=== PATIENT | male | born 1950 | race Caucasian/White ===

== ENCOUNTER → 2018-05-22 10:40 | Outpatient (CLI) | payer MEDICARE, SELFPAY ==
[2018-05-22 11:17] VITALS: PULSE 119; PULSE 121; PULSE 125; PULSE 126; PULSE 95; PULSE 99; O2SAT 91; O2SAT 92; O2SAT 93; O2SAT 94; O2SAT 95; O2SAT 96
--- NOTE | 2018-05-22 12:29 | PCM.PSN.6M ---
PSN 6 Minute Walk Test - 6 Minute Walk Test 6 Minute Walk Test: 6 Minute Walk Test PSN:6-Minute Walk Test Start: 05/22/18 11:17 Freq: Status: Active Protocol: [id number] Document 05/22/18 11:17 ALFREDO (Rec: 05/22/18 11:20 [email or web address] [id number]) 6 Minute Walk Test Date Performed 05/22/18 Time Performed 11:00 Height 5 ft 10 in Weight: 350 lb Weight in Pounds 350.[address]: Dajuan Victor Assistive device used: None Pre-test Oxygen Delivery Method Room Air Pulse Ox (%) 94 Pulse Rate (60-100 beats/min) 95 Dyspnea Camelia Scale (0-10) 0.5 Exertion Camelia Scale (6-20) 6 1st minute Oxygen Delivery Method Room Air Pulse Ox (%) 92 Pulse Rate (60-100 beats/min) 119 H 2nd minute Oxygen Delivery Method Room Air Pulse Ox (%) 91 Pulse Rate (60-100 beats/min) 121 H Number of Rests Taken 1 3rd minute Oxygen Delivery Method Room Air Pulse Ox (%) 91 Pulse Rate (60-100 beats/min) 125 H Number of Rests Taken 1 4th minute Oxygen Delivery Method Room Air Pulse Ox (%) 95 Pulse Rate (60-100 beats/min) 121 H 5th minute Oxygen Delivery Method Room Air Pulse Ox (%) 92 Pulse Rate (60-100 beats/min) 126 H Number of Rests Taken 1 6th minute Oxygen Delivery Method Room Air Pulse Ox (%) 93 Pulse Rate (60-100 beats/min) 121 H Dyspnea Camelia Scale (0-10) 3 Exertion Camelia Scale (6-20) 16 Post-test Oxygen Delivery Method Room Air Pulse Ox (%) 96 Pulse Rate (60-100 beats/min) 99 Full Laps Walked 11 Partial Lap, Number of Tiles Walked 0 Total Distance Walked (ft) 649 - Interpretation Interpretation: The patient ambulated 649 feet over the course of 6 minutes beginning on room air without assistive devices or breaks. Pretesting oxygen saturation was noted to be 94% on room air. With ambulation, the bhavesh oxygen saturation was 91%. The patient did develop tachycardia with exertion. Although there is no evidence of significant exertional oxygen desaturation, there was evidence of impaired walk distance. - Recommendations Recommendations: There is no indication for the use of supplemental oxygen at this time.
== END ==
PROVIDERS: Family Provider Preventive Medicine Occupational Medicine; PCP Preventive Medicine Occupational Medicine; Visit Provider Internal Medicine Critical Care Medicine
DX: J44.9 Chronic obstructive pulmonary disease, unspecified (principal); Z87.891 Personal history of nicotine dependence
CPT/HCPCS: 94618; G0297

== ENCOUNTER → 2018-05-29 09:57 | Outpatient (CLI) | payer MEDICARE, SELFPAY ==
--- NOTE | 2018-05-29 11:27 | PFTCOMP ---
COMPLETE PULMONARY FUNCTION TEST INTERPRETATION Brief HPI: Patient is a 68 year old male, currently under the care of Dr. Victor, who presents to [facility] for complete pulmonary function tests secondary to diagnosis of COPD. Respiratory therapist reports good effort and reproducible results. Interpretation: Forced expiration spirometry shows a severe large airways obstructive ventilatory defect with an FEV1 of 58% predicted. There is a significant bronchodilator response in FVC and FEV1 by ATS criteria. Spirograms are of good quality and plateau slowly, indicating slowly emptying areas of the lungs. The respiratory flow volume loop shows decreased expiratory flow rates at all lung volumes consistent with airway obstruction. Lung volumes by body plethysmography show an elevated total lung capacity at 8.1 L, 121% predicted. FRC and RV are elevated out of proportion. Lung volume measurements are consistent with hyperinflation and air-trapping. Diffusion capacity by carbon monoxide is decreased at 59% predicted. The airway resistance is elevated. Compared to previous pulmonary function tests from 03/05/2017, there has been no significant change. Impression: Partially reversible severe large airways obstructive ventilatory defect with symmetric reduction diffusing capacity, resulting in air trapping with hyperinflation and consistent with COPD/asthma overlap syndrome.
== END ==
PROVIDERS: Family Provider Preventive Medicine Occupational Medicine; PCP Preventive Medicine Occupational Medicine; Visit Provider Internal Medicine Critical Care Medicine
DX: J44.9 Chronic obstructive pulmonary disease, unspecified (principal)
CPT/HCPCS: 93005; 94060; 94726; 94729

== ENCOUNTER 2018-06-19 10:20 | Outpatient (RCR) | payer MEDICARE, SELFPAY | END 2018-06-23 23:59 | LOC: DC 10:20 | PROVIDERS: Family Provider Preventive Medicine Occupational Medicine; PCP Preventive Medicine Occupational Medicine; Visit Provider Internal Medicine Critical Care Medicine | DX: E11.9 Type 2 diabetes mellitus without complications (principal); E66.9 Obesity, unspecified; Z68.43 Body mass index [BMI] 50.0-59.9, adult; Z71.3 Dietary counseling and surveillance ==

== ENCOUNTER 2018-06-21 09:30 | Outpatient (RCR) | payer MEDICARE, SELFPAY ==
--- NOTE | 2018-05-28 10:38 | PCM.PR.HP ---
History of Present Illness Arrival date:: 05/28/18 Arrival time:: 10:38 Date of Referral:: 05/02/18 Date of Evaluation: 05/28/18 Referring Physician: Dr. Dajuan Victor Primary Diagnosis: COPD Stage III Severe Gold Classification mMRC Breathless Scale: When is the patient short of breath? Y/N Grade: Description of Breathlessness: 0 I only get breathless with strenuous exercise. 1 I get short of breath when hurrying on level ground or walking up a slight hill. 2 On level ground, I walk slower than people of the same age because of breathless, or have to stop for breath when walking at my own pace. 3 I stop for breath after walking 100 yards or after a few minutes on level ground. 4 I am too breathless to leave the house or I am breathless when dressing. Respiratory Problems: Yes: Able to Speak in Full Sentences, Ankle Swelling, Dyspnea with Activity No: Retain Secretions, Limited Range of Motion, Chest Pain, Dizziness, Dyspnea at Rest, Dyspnea Lying Down Flat, Cough with Secretions Home Medications: Home Medications albuterol sulfate 2.5 mg/3 mL (0.083 %) solution for nebulization 2.5 mg INHALATION Q6H PRN ml 05/02/18 albuterol sulfate HFA 90 mcg/actuation aerosol inhaler 2 puff INHALATION Q4H PRN 05/02/18 aspirin 81 mg tablet,delayed release 81 mg PO QDAY 05/02/18 budesonide-formoterol HFA 80 mcg-4.5 mcg/actuation aerosol inhaler 2 puff INHALATION ONCE g 05/02/18 citalopram 40 mg tablet 20 mg PO QDAY 05/02/18 furosemide 40 mg tablet 40 mg PO BID 05/02/18 insulin human U-100 NPH-regulr 70-30 mix 100 unit/mL subcutaneous susp 56 unit SC BID ml 05/02/18 lisinopril 5 mg tablet 5 mg PO QDAY 05/02/18 metformin 1,000 mg tablet 1,000 mg PO ONCE tab 05/02/18 metoprolol tartrate 25 mg tablet 25 mg PO ONCE tab 05/02/18 simvastatin 80 mg tablet 80 mg PO ONCE 05/02/18 tiotropium bromide 18 mcg capsule with inhalation device 1 cap INHALATION QDAY 05/02/18 - Secretions Cough:: Yes AM: Yes Hx of Sleep Apnea: Yes Do you snore loudly (louder than talking or can be heard through closed doors)?: Yes - MALI; 2-3 hours sleep at night off/on. Do you often feel tired/ fatigued/ sleepy during daytime?: Yes Has anyone observed you stop breathing during sleep?: No History of Hypertension (for STOP score): Yes STOP Results: Positive Medical Utilization Do you use a peak flow meter at home?: No Do you use a spacer device with your inhalers?: No Number of hospital visits in the last year?: 0 Number of emergency room visits in the last year?: 0 Do you see your physician on a regular schedule?: Yes How often?: 6 months PCP; follow-up Nov with [facility]. Advanced Directives - Advanced Directives Power of [place]: Yes Living Will: Yes Advance Directives Information Provided: No Advance Directives on File: No DNR Order?:: No - MOLST See MOLST form: No Past Medical History Medical History: Past Medical History (This Medical Record has been edited. Action required.) Diabetes (Chronic) E11.9 Former smoker (Resolved) Z87.891 COPD (chronic obstructive pulmonary disease) (Chronic) J44.9 Surgical History: Past Surgical History (This Medical Record has been edited. 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 Action required.) Father Heart disease Diabetes Brother Cancer Throat Grandmother Breast cancer - Current/ Previous Services Pulmonary Rehab:: No - Comments Comments: Did do cardiac rehab in 2009 after CABG in [place]. Social History - Smoking History Smoking Status: Former smoker Years Smokin Packs Smoked per Day: 2 Hx Smoking Cessation Date: 2008 Hx Tobacco Use: No Hx Smoking Exposure: No - Alcohol Use Alcohol Usage: Yes - beer or whiskey on occasion - Substance Abuse Hx Substance Use: No - Occupation Occupation (List type of work in comments):: Retired - Hobbies, Recreation, Social Activities Hobbies: Watch TV Recreational Activities: I am able to engage in a few activities Functioning ADL/IADL - Current Ability Current Ability: Independent Self-Care (e.g.,grooming, dressing, & bathing), Independent Ambulation, Independent Transfer, Independent Household tasks (e.g., light meal prep, laundry, shopping) - Pt Functioning Prior to Problem Prior Functioning: Self-Care (e.g.,grooming, dressing, & bathing): Independent, Ambulation: Independent, Transfer: Independent, Household tasks (e.g., light meal prep, laundry, shopping): Independent Social Environment - Status Marital Status: - Current Living Arrangements Living Environment:: Spouse - Children How many children do you have?: 0 - Safety Do you feel safe in your surroundings?: Yes - Assistance Do you need any assistance at home?: none Review of Systems Review of Systems: Right click = Denies ([place]). Left click = Reports ([place]) Respiratory: Reports: Cough - dry cough frequently throughout the day., SOB upon Exertion, Wheezing, Appetite, Normal, Dizziness/Lightheadedness - if stands to quickly, but once he stands for a minute if goes away., Fatigue, Sleep, Normal - 2-3 hours up and down throughout the night. Never in his lifetime has he had more than 6-7 hours of solid sleep.. Denies: SOB at Rest, Sexual changes Is Patient Pain Free?: Yes Pain Location: none Pain Level: 0/10 Risk Factor Assessment - Chief Complaint Chief Complaint: Patient is a new patient of Dr. Dajuan Victor who transfered from Dr. Arden Arredondo at [place]. The patient presents to pulmonary rehab today for his Stage III Severe COPD. A routine PFT is scheduled prior to starting NV since his last PFT was done in 2017. - Vital Signs Temperature: 98.7 F Pulse Rate: 79 Pulse Rhythm: Regular Respiratory Rate: 18 - following walking from lobby. Pulse Ox: 92 Blood Pressure: 148/90 Nailbeds:: pink - Obesity Height: 5 ft 11 in Weight:: 365 lb Weight in Pounds: 365.0 lbs Body Mass Index (BMI): 50.9 Nutritional Referral for Obesity: Yes - Patient could benefit from a Strucutured weight loss or Bariatric Consult - Physical Activity Physical Inactivity: None - Risk Stratification Risk Guidelines: Lowest Risk: Risk Factor for Smoking, Risk Factor for Dyslipidemia, Risk Factor for Diabetes - a1c 7.5 04/10/2018, Risk Factor for Depression, Highest Risk: Risk Factor for Obesity - BMI 50.9 High Risk, Risk Factor for Hypertension, Risk Factor for Sedentary Lifestyle - For Smoking Smoking Risk Guidelines: Smoking Low Risk: None or quit greater than 6 months ago. Smoking Moderate Risk: Smoker or quit 6 months or less ago. Smoking High Risk: Smoker - For Dyslipidemia Dyslipidemia Risk Guidelines: Low Risk: Moderate Risk: High Risk: 15-25% fat 25.1-29% fat >/= 30% fat. <7% sat fat 7-9% sat fat >9% sat fat. <150 mg chol 150-299 mg chol >/= 300 mg chol. LDL <100 LDL 100-129 LDL >/= 130. Chol/HDL ratio <5.0 Chol/HDL ratio 5.0-6.0 Chol/HDL ratio >6.0. Triglycerides <100 Triglycerides 100-149 Triglycerides >/= 150 - For Diabetes Mellitus Diabetes Risk Guidelines: Diabetes Low Risk: HgA1c <6.5% and/or FBG <120. Diabetes Moderate Risk: HgA1c 6.6-7.9% and/or FBG 120-180. Diabetes High Risk: HgA1c >/= 8% and/or FBG >180 - For Obesity/Overweight Obesity/Overweight Risk Guidelines: Obesity Low Risk: BMI <25.0. Obesity Moderate Risk: BMI 25-29.9. Obesity High Risk: BMI >/= 30.0 - For Hypertension Hypertension Risk Guidelines: Hypertension Low Risk: Systolic <120 and Diastolic <80. Hypertension Moderate Risk: Systolic 120-139 and Diastolic 80-89. Hypertension High Risk: Systolic >/= 140 and Diastolic >/= 90 - For Sedentary Lifestyle Sedentary Lifestyle Risk Guidelines: Sedentary Lifestyle Low Risk: >/= 1,500 kcal/week. Sedentary Lifestyle Moderate Risk: 700-1,499 kcal/week. Sedentary Lifestyle High Risk: < 700 kcal/week - For Depression Depression Risk Guidelines: Depression Low Risk: Not clinically depressed. Depression Moderate Risk: Mildly depressed. Depression High Risk: Clinically depressed Motivation - Motivation to Participate On a scale of 1 to 10, how prepared are you to commit to attending program?: 10 What do you see as barriers to successfully being able to complete the program?: none What do you see as the benefits of succesfully completing the program? In other words, what do you hope to get out of participating in the program?: healthier, more active Are there issues you are dealing with that will interfere with completing the program?: none Do you have a spouse or signficant other, family or friends who will help support you to complete the program?: yes Diagnostic Data Review - 6 Minute Walk Test 6 Minute Walk Test: Done 05/22/2018 649 feet on room air wihtout assistive devices or breaks. Patient desaturation to 91%.
--- NOTE | 2018-05-28 10:42 | PR.ITP_ITS ---
General Information - General Information Admitting Diagnosis: COPD Stage III Severe Gold Classification:: GOLD 3: Severe Oxygen: at night but doesnt use it faithfully as ordered. - Education/Goals Patient Goals: Breathe better: Initial Assessment, Increase endurance/stamina: Initial Assessment, Return to recreation/hobby: Initial Assessment, Improve diet and nutrition: Initial Assessment, Symptom management: Initial Assessment, Take medications correctly: Initial Assessment, Improve weight: Initial Assessment Exercise - Initial Assessment - Visit Date of Eval: 05/28/18 - Problem/Goals Problems: Knowledge deficit exercise guidelines, Knowledge deficit exercise safety - Exercise Prescription Mode:: Treadmill, Rower, Airdyne, NuStep Frequency (x/week): 3 Duration:: 30 MET LEVEL:: 2.5 HR (bpm):: 110 - 108-110 thrr Exercise Progression: As tolerated per patient under [place] Protocol. - Plan Plan and Plan to Review:: Benefits of exercise, Core components of exercise, How to measure dyspnea level, How to monitor dyspnea level, Exercise intensity, Exercise safety guideline, Home exercise guidelines, Camelia: 3-4/11-13 Disease Management - Initial - Problems/Goals-Hypoxemia Hypoxemia Problems:: Hypoxemia - Problems/Goals-Medications Medication Goals: Adherence to prescribed medications, Correct technique/timing & care of MDI, DPI, nebulizer, and spacer. - Problems/Goals-Bronchial Hygiene Bronchial Hygiene Goals:: Pt demonstrates effective cough, effective secretion clearance., Pt describes signs and symptoms of infection. - Initial Assessment SpO2:: 91 FiO2:: 21 Does pt report taking home meds as prescribed?: No Medications: Yes MDI - routinely, Yes DPI - routinely, Yes NEB - only as needed , No Spacer - has one but does not use it Patient Reports:: Non-productive cough - Plans Hypoxemia Plan:: Monitor SpO2 rest & with exercise, Train appropriate O2 use at rest, Train appropriate O2 use with exercise, Train O2 safety & systems Reviewed prescribed medications:: Purpose, Schedule, Side effects, Importance of compliance Instruct correct technique/timing & care:: MDI, DPI, Nebulizer, Return demo use of inhaler Bronchial Hygiene Plan: Controlled cough, Vibratory PEP device, Hydration, Hand hygiene, Signs/symptoms to report: Psychosocial - Initial Assess - Problems/Goals Problems: Impaired Q.O.L. Psychosocial Goals: Improved Q.O.L. - Psychosocial Test Depression:: Impaired QOL Referred to MD for counseling:: No - Plan Reviewed screening results: Yes Instructions given regarding:: Benefits of exercise, Relaxation techniques, Training in coping strategies Tobacco - Initial Assessment - Program Goals Tobacco Program Goals: Complete smoking cessation. Attend education classes. Improve Knowledge Test score - Stage of Change Stages of Change:: Action - Learning Barriers Learning Barriers: Vision - needs reading glasses at itmes, Ready to Learn - Family Support Do you have family support?: Yes - Tobacco Use Tobacco Use: Non-smoker How long ago did you quit using tobacco products?: Greater than or equal to 6 months ago Do you use smokeless tobacco?: No - Intervention Smoking Cessation Referral:: No Individual Education/Counseling:: No Education Schedule Given:: Yes - Education Gave Education Materials For:: Pulmonary Disease, Risk Factors, Breathing Techniques, Medical Compliance, Pulmonary A&P, Exacerbation Signs & Symptoms, Stress & Relaxation Nutrition/Wt Mgmt - Initial - Problems/Goals Problems: Overweight - Weight Management Knowledge Deficit Management of:: Overweight Admit Height:: 5 ft 11 in Admit Weight:: 365 lb Admit BMI:: 50.9 - Diabetes Diabetes:: Yes Hgb A1C: 7.5 Insulin: Yes Do you monitor your blood sugar at home?: Yes - Intervention Referral to dietitian:: Yes Referral to Diabetic Clinic:: No - Sees Liset Quach in [place] for DM Type II Will attend diet classes:: Yes - Plan Nutrition Plan: Yes Review BMI or WC & identify target wt & strategies for wt control, Yes Nutrition education class: Patient Health Questionnaire Initial Assessment 1. Little interest or pleasure in doing things: Several days 2. Feeling down, depressed, or hopeless: Several days 3. Trouble falling or staying asleep, or sleeping too much: Not at all 4. Feeling tired or having little energy: Not at all 5. Poor appetite or overeating: More than half the days 6. Feeling bad about yourself -- or that you are a failure or have let yourself or your family down: More than half the days 7. Trouble concentrating on things, such as reading the newspaper or watching television: Not at all 8. Moving or speaking so slowly that other people could have noticed. Or the opposite - being so fidgety or restless that you have been moving around a lot more than usual: Not at all 9. Thoughts that you would be better off , or of hurting yourself in some way: Not at all How difficult have these problems made it for you to do your work, take care of things at home, or get along with other people?: Not difficult at all Total Score: 6 COPD Knowledge Test Initial COPD is a lung disease that:: Makes it hard to breathe & gets worse over time In the [place] the term COPD describes 2 main lung conditions:: Emphysema & pulmonary hypertension The most common lung irritant that causes COPD is:: Cigarette smoke Common signs and symptoms of COPD include:: An ongoing cough/cough that produces a large amount of mucus, & SOB If you have COPD, what steps can you take?: All of the above Swelling of the ankles is common in COPD:: True Fatigue [tiredness] is common in COPD:: True Wheezing is common in COPD:: True Crushing chest pain is common in COPD:: False Rapid weight loss is common in COPD:: False Breathlessness is a normal response to exercise: False Exercise should be avoided if it makes you short of breath: False All bronchodilators act within 10 minutes: False A spacer device increases the medication to the lungs: True Annual flu vaccine is recommended for pts w/lung disease: True COPD Knowledge Test Total Score:: 12 COPD Assessment Test [CAT] - Questions Never cough = 0, Cough all the time = 5: 2 No phlegm = 0, Chest full of phlegm = 5: 0 No chest tightness = 0, Chest very tight = 5: 1 No breathless w/exertion = 0, Very breathless w/exertion = 5: 5 No limitations w/activity = 0, Very limited w/activity = 5: 4 Confident leaving home = 0, Not at all confident = 5: 0 Sleep soundly = 0, Don't sleep soundly = 5: 1 Lots of energy = 0, No energy at all = 5: 3 Total CAT score:: 16 Self-Efficacy Initial Assessment We would like to know how confident you are in doing certain activities. Please select your confidence level for:: Select your confidence level for the following using the scale 1-10 where 1 is not at all confident and 10 is totally confident. Your score is the average of all 6 responses. Fatigue: How confident are you that you can keep the fatigue caused by your disease from interfering with the things you want to do? Select Number: 10 Physical Discomfort or Pain: How confident are you that you can keep the physical discomfort or pain of your disease from interfering with the things you want to do? Select Number: 10 Emotional Distress: How confident are you that you can keep the emotional distress caused by your disease from interfering with the things you want to do? Select Number: 10 Other Symptoms or Health Problems: How confident are you that you can keep other symptoms or health problems from interfering with the things you want to do? Select Number: 8 Different Tasks and Activities: How confident are you that you can do the different tasks and activities needed to manage your health condition so as to reduce your need to see a doctor? Select Number: 9 Medication: How confident are you that you can do things other than just taking medication to reduce how much your illness affects your everyday life? Select Number: 10 Total Score:: 9 Nutrition Survey - Nutrition Survey Instructions Scoring Instructions: Scoring is as follows: Yes = 1 points. No = 0 point. Patient score that is >/=12 is considered to be at potential nutritional risk and could benefit from a referral to a registered dietitian. - Nutrition Survey Initial Have you lost >10 lbs over the past 2 months without trying?: No Are you following a special diet at home for diabetes, low fat, or low salt?: No Are you interested in meeting with a dietitian for help understanding your diet? : No Do you eat less than 3 meals a day?: No Do you eat fatty meats (finch, sausage, ribs, etc), fried foods, desserts, large amounts of salad dressings, margarine, butter, or cheese most days?: Yes Do you have food allergies? [Enter types in comment field]: No Do you eat in restaurants more than 3 times a week?: No Do you season food with salt, seasoning salt, or garlic salt?: No Do you used canned, boxed, frozen meals, or soups, seasoning packets?: Yes Total Score:: 2
--- NOTE | 2018-05-28 10:42 | PR.HP_ITS ---
History of Present Illness Arrival date:: 05/28/18 Arrival time:: 10:38 Date of Referral:: 05/02/18 Date of Evaluation: 05/28/18 Referring Physician: Dr. Dajuan Victor Primary Diagnosis: COPD Stage III Severe Gold Classification mMRC Breathless Scale: When is the patient short of breath? Y/N Grade: Description of Breathlessness: 0 I only get breathless with strenuous exercise. 1 I get short of breath when hurrying on level ground or walking up a slight hill. 2 On level ground, I walk slower than people of the same age because of breathless, or have to stop for breath when walking at my own pace. 3 I stop for breath after walking 100 yards or after a few minutes on level ground. 4 I am too breathless to leave the house or I am breathless when dressing. Respiratory Problems: Yes: Able to Speak in Full Sentences, Ankle Swelling, Dyspnea with Activity No: Retain Secretions, Limited Range of Motion, Chest Pain, Dizziness, Dyspnea at Rest, Dyspnea Lying Down Flat, Cough with Secretions Home Medications: Home Medications albuterol sulfate 2.5 mg/3 mL (0.083 %) solution for nebulization 2.5 mg INHALATION Q6H PRN ml 05/02/18 albuterol sulfate HFA 90 mcg/actuation aerosol inhaler 2 puff INHALATION Q4H PRN 05/02/18 aspirin 81 mg tablet,delayed release 81 mg PO QDAY 05/02/18 budesonide-formoterol HFA 80 mcg-4.5 mcg/actuation aerosol inhaler 2 puff INHALATION ONCE g 05/02/18 citalopram 40 mg tablet 20 mg PO QDAY 05/02/18 furosemide 40 mg tablet 40 mg PO BID 05/02/18 insulin human U-100 NPH-regulr 70-30 mix 100 unit/mL subcutaneous susp 56 unit SC BID ml 05/02/18 lisinopril 5 mg tablet 5 mg PO QDAY 05/02/18 metformin 1,000 mg tablet 1,000 mg PO ONCE tab 05/02/18 metoprolol tartrate 25 mg tablet 25 mg PO ONCE tab 05/02/18 simvastatin 80 mg tablet 80 mg PO ONCE 05/02/18 tiotropium bromide 18 mcg capsule with inhalation device 1 cap INHALATION QDAY 05/02/18 - Secretions Cough:: Yes AM: Yes Hx of Sleep Apnea: Yes Do you snore loudly (louder than talking or can be heard through closed doors)? : Yes - MALI; 2-3 hours sleep at night off/on. Do you often feel tired/ fatigued/ sleepy during daytime?: Yes Has anyone observed you stop breathing during sleep?: No History of Hypertension (for STOP score): Yes STOP Results: Positive Medical Utilization Do you use a peak flow meter at home?: No Do you use a spacer device with your inhalers?: No Number of hospital visits in the last year?: 0 Number of emergency room visits in the last year?: 0 Do you see your physician on a regular schedule?: Yes How often?: 6 months PCP; follow-up Nov with [facility]. Advanced Directives - Advanced Directives Power of Mannequin Mold Maker: Yes Living Will: Yes Advance Directives Information Provided: No Advance Directives on File: No DNR Order?:: No - MOLST See MOLST form: No Past Medical History Medical History: Past Medical History (This Medical Record has been edited. Action required.) Diabetes (Chronic) E11.9 Former smoker (Resolved) Z87.891 COPD (chronic obstructive pulmonary disease) (Chronic) J44.9 Surgical History: Past Surgical History (This Medical Record has been edited. 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 Action required.) Father Heart disease Diabetes Brother Cancer Throat Grandmother Breast cancer - Current/ Previous Services Pulmonary Rehab:: No - Comments Comments: Did do cardiac rehab in 2009 after CABG in [place]. Social History - Smoking History Smoking Status: Former smoker Years Smokin Packs Smoked per Day: 2 Hx Smoking Cessation Date: 2008 Hx Tobacco Use: No Hx Smoking Exposure: No - Alcohol Use Alcohol Usage: Yes - beer or whiskey on occasion - Substance Abuse Hx Substance Use: No - Occupation Occupation (List type of work in comments):: Retired - Hobbies, Recreation, Social Activities Hobbies: Watch TV Recreational Activities: I am able to engage in a few activities Functioning ADL/IADL - Current Ability Current Ability: Independent Self-Care (e.g.,grooming, dressing, & bathing), Independent Ambulation, Independent Transfer, Independent Household tasks (e.g. , light meal prep, laundry, shopping) - Pt Functioning Prior to Problem Prior Functioning: Self-Care (e.g.,grooming, dressing, & bathing): Independent, Ambulation: Independent, Transfer: Independent, Household tasks (e.g., light meal prep, laundry, shopping): Independent Social Environment - Status Marital Status: - Current Living Arrangements Living Environment:: Spouse - Children How many children do you have?: 0 - Safety Do you feel safe in your surroundings?: Yes - Assistance Do you need any assistance at home?: none Review of Systems Review of Systems: Right click = Denies ([place]ash). Left click = Reports ([place]) Respiratory: Reports: Cough - dry cough frequently throughout the day., SOB upon Exertion, Wheezing, Appetite, Normal, Dizziness/Lightheadedness - if stands to quickly, but once he stands for a minute if goes away., Fatigue, Sleep , Normal - 2-3 hours up and down throughout the night. Never in his lifetime has he had more than 6-7 hours of solid sleep.. Denies: SOB at Rest, Sexual changes Is Patient Pain Free?: Yes Pain Location: none Pain Level: 0/10 Risk Factor Assessment - Chief Complaint Chief Complaint: Patient is a new patient of Dr. Dajuan Victor who transfered from Dr. Arden Arredondo at [place]. The patient presents to pulmonary rehab today for his Stage III Severe COPD. A routine PFT is scheduled prior to starting [place] since his last PFT was done in 2017. - Vital Signs Temperature: 98.7 F Pulse Rate: 79 Pulse Rhythm: Regular Respiratory Rate: 18 - following walking from lobby. Pulse Ox: 92 Blood Pressure: 148/90 Nailbeds:: pink - Obesity Height: 5 ft 11 in Weight:: 365 lb Weight in Pounds: 365.0 lbs Body Mass Index (BMI): 50.9 Nutritional Referral for Obesity: Yes - Patient could benefit from a Strucutured weight loss or Bariatric Consult - Physical Activity Physical Inactivity: None - Risk Stratification Risk Guidelines: Lowest Risk: Risk Factor for Smoking, Risk Factor for Dyslipidemia, Risk Factor for Diabetes - a1c 7.5 04/10/2018, Risk Factor for Depression, Highest Risk: Risk Factor for Obesity - BMI 50.9 High Risk, Risk Factor for Hypertension, Risk Factor for Sedentary Lifestyle - For Smoking Smoking Risk Guidelines: Smoking Low Risk: None or quit greater than 6 months ago. Smoking Moderate Risk: Smoker or quit 6 months or less ago. Smoking High Risk: Smoker - For Dyslipidemia Dyslipidemia Risk Guidelines: Low Risk: Moderate Risk: High Risk: 15-25% fat 25.1-29% fat >/= 30% fat. <7% sat fat 7-9% sat fat >9% sat fat. <150 mg chol 150-299 mg chol >/= 300 mg chol. LDL <100 LDL 100-129 LDL >/= 130. Chol/HDL ratio <5.0 Chol/HDL ratio 5.0-6.0 Chol/HDL ratio >6.0. Triglycerides <100 Triglycerides 100-149 Triglycerides >/= 150 - For Diabetes Mellitus Diabetes Risk Guidelines: Diabetes Low Risk: HgA1c <6.5% and/or FBG <120. Diabetes Moderate Risk: HgA1c 6.6-7.9% and/or FBG 120-180. Diabetes High Risk: HgA1c >/= 8% and/or FBG >180 - For Obesity/Overweight Obesity/Overweight Risk Guidelines: Obesity Low Risk: BMI <25.0. Obesity Moderate Risk: BMI 25-29.9. Obesity High Risk: BMI >/= 30.0 - For Hypertension Hypertension Risk Guidelines: Hypertension Low Risk: Systolic <120 and Diastolic <80. Hypertension Moderate Risk: Systolic 120-139 and Diastolic 80-89. Hypertension High Risk: Systolic >/= 140 and Diastolic >/= 90 - For Sedentary Lifestyle Sedentary Lifestyle Risk Guidelines: Sedentary Lifestyle Low Risk: >/= 1 ,500 kcal/week. Sedentary Lifestyle Moderate Risk: 700-1,499 kcal/week. Sedentary Lifestyle High Risk: < 700 kcal/week - For Depression Depression Risk Guidelines: Depression Low Risk: Not clinically depressed. Depression Moderate Risk: Mildly depressed. Depression High Risk: Clinically depressed Motivation - Motivation to Participate On a scale of 1 to 10, how prepared are you to commit to attending program?: 10 What do you see as barriers to successfully being able to complete the program? : none What do you see as the benefits of succesfully completing the program? In other words, what do you hope to get out of participating in the program?: healthier, more active Are there issues you are dealing with that will interfere with completing the program?: none Do you have a spouse or signficant other, family or friends who will help support you to complete the program?: yes Diagnostic Data Review - 6 Minute Walk Test 6 Minute Walk Test: Done 05/22/2018 649 feet on room air wihtout assistive devices or breaks. Patient desaturation to 91%.
[2018-05-28 10:58] VITALS: BP 148/90; PULSE 79; RESP 18; TEMP 37.1; O2SAT 92; BMI 50.9
[2018-05-28 11:47] VITALS: O2SAT 91; BMI 50.9
--- NOTE | 2018-05-28 11:48 | PR.DATECOV_ITS ---
Dates of Coverage Times for Dates Of Coverage; All dates of coverage are for physician supervision /medical device assembler for during the times of 08:00 AM through 4:30 PM. Effective May 25, 2013 our hours will be changing to 8:00 to 4:30 on Sunday, Sunday and Sunday. First Date of the Month: 06/03/18 Last Date of the Month: 06/23/18
== END 2018-06-23 23:59 ==
LOC: PR 09:30
PROVIDERS: Family Provider Preventive Medicine Occupational Medicine; PCP Preventive Medicine Occupational Medicine; Visit Provider Internal Medicine Critical Care Medicine
DX: J44.9 Chronic obstructive pulmonary disease, unspecified (principal)
CPT/HCPCS: 97150; G0424

== ENCOUNTER 2018-07-24 09:30 | Outpatient (RCR) | payer MEDICARE, SELFPAY ==
[2018-06-24 00:12] VITALS: BP 148/90; PULSE 79; RESP 18; TEMP 37.1; O2SAT 92
--- NOTE | 2018-07-01 07:30 | PCM.PR.DAT ---
Dates of Coverage Times for Dates Of Coverage; All dates of coverage are for physician supervision/medical office representative for during the times of 08:00 AM through 4:30 PM. Effective May 25, 2013 our hours will be changing to 8:00 to 4:30 on Sunday, Sunday and Sunday. First Date of the Month: 06/28/18 Last Date of the Month: 07/29/18
--- NOTE | 2018-07-01 07:30 | PCM.PR.TP ---
Exercise - 30-Day Assessment - Exercise Prescription Mode:: Treadmill, Airdyne, NuStep, Arm Ergometer Frequency (x/week): 3 Duration:: 35 Aerobic Exercise [30-60 min 3-7x/week]:: Progressing Target heart rate: 116-124 Camelia MET Level:: 2.5 - Home Exercise Home Exercise:: No Disease Management - 30-Day - Hypoxemia Reassessment: Demonstrates knowledge of O2 Rx with exercise - Medications Medication list reviewed:: Yes Taking medications 100% of the time:: Met Medication reassessment: Yes Pt demonstrates correct technique timing for MDI, Yes Pt demonstrates correct technique timing for DPI, Yes Pt demonstrates correct technique timing for NEB - Bronchial Hygiene Bronchial Hygiene Plan: Yes Pt demonstrates correctly for effective cough, Yes Pt demo correct for verbalize when to call MD Psychosocial - 30-Day - Assessment Reassessment: Management of stress & depression Tobacco - 30-Day Assessment - Program Goals Tobacco Program Goals: Complete smoking cessation. Attend education classes. Improve Knowledge Test score - Stage of Change Stages of Change:: Action - Learning Barriers Learning Barriers: Participates in education - Family Support Do you have family support?: Yes - Tobacco Use Tobacco Use: Non-smoker Do you use smokeless tobacco?: No - Intervention Smoking Cessation Referral:: No Individual Education/Counseling:: No Education Schedule Given:: Yes - Education Gave Education Materials For:: Pulmonary Disease, Risk Factors, Breathing Techniques, Medical Compliance, Pulmonary A&P, Exacerbation Signs & Symptoms, Stress & Relaxation Nutrition/Wt Mgmt - 30-Day - Weight Management Weight Assessment:: Wt stable Weight:: 368 lb Weight Goals Progress:: Referral to structured weight management program - Recommend referral to [facility] program. Patient Health Questionnaire 30-Day Re-eval Assessment 1. Little interest or pleasure in doing things: Several days 2. Feeling down, depressed, or hopeless: Several days 3. Trouble falling or staying asleep, or sleeping too much: Not at all 4. Feeling tired or having little energy: Not at all 5. Poor appetite or overeating: Several days 6. Feeling bad about yourself -- or that you are a failure or have let yourself or your family down: Several days 7. Trouble concentrating on things, such as reading the newspaper or watching television: Not at all 8. Moving or speaking so slowly that other people could have noticed. Or the opposite - being so fidgety or restless that you have been moving around a lot more than usual: Not at all 9. Thoughts that you would be better off , or of hurting yourself in some way: Not at all How difficult have these problems made it for you to do your work, take care of things at home, or get along with other people?: Somewhat difficult Total Score: 4 Self-Efficacy 30-Day Re-eval Assessment We would like to know how confident you are in doing certain activities. Please select your confidence level for:: Select your confidence level for the following using the scale 1-10 where 1 is not at all confident and 10 is totally confident. Your score is the average of all 6 responses. Fatigue: How confident are you that you can keep the fatigue caused by your disease from interfering with the things you want to do? Select Number: 10 Physical Discomfort or Pain: How confident are you that you can keep the physical discomfort or pain of your disease from interfering with the things you want to do? Select Number: 10 Emotional Distress: How confident are you that you can keep the emotional distress caused by your disease from interfering with the things you want to do? Select Number: 10 Other Symptoms or Health Problems: How confident are you that you can keep other symptoms or health problems from interfering with the things you want to do? Select Number: 9 Different Tasks and Activities: How confident are you that you can do the different tasks and activities needed to manage your health condition so as to reduce your need to see a doctor? Select Number: 10 Medication: How confident are you that you can do things other than just taking medication to reduce how much your illness affects your everyday life? Select Number: 10 Total Score:: 9
--- NOTE | 2018-07-19 11:51 | PR.DATECOV_ITS ---
Dates of Coverage Times for Dates Of Coverage; All dates of coverage are for physician supervision/medical care manager for during the times of 08:00 AM through 4:30 PM. Effective May 25, 2013 our hours will be changing to 8:00 to 4:30 on Sunday, Sunday and Sunday. First Date of the Month: 07/25/18 Last Date of the Month: 08/23/18
== END 2018-07-24 23:59 ==
LOC: PR 09:30
PROVIDERS: Family Provider Preventive Medicine Occupational Medicine; PCP Preventive Medicine Occupational Medicine; Referring Provider Internal Medicine Critical Care Medicine; Visit Provider Internal Medicine Critical Care Medicine
DX: J44.9 Chronic obstructive pulmonary disease, unspecified (principal)
CPT/HCPCS: 94667; 97150; G0424

== ENCOUNTER 2018-08-23 09:30 | Outpatient (RCR) | payer MEDICARE, SELFPAY ==
[2018-07-25 00:23] VITALS: BP 148/90; PULSE 79; RESP 18; TEMP 37.1; O2SAT 92
--- NOTE | 2018-07-26 08:13 | PCM.PR.TP ---
Exercise - 60-Day Assessment - Current Level Mode:: Treadmill, Rower, Airdyne, NuStep Frequency (x/week): 3 Duration:: 35 Aerobic Exercise [30-60 min 3-7x/week]:: Progressing Target heart rate: 116-124 Camelia-13 MET Level:: 2.5 - Home Exercise Home Exercise:: No Disease Management - 60-Day - Hypoxemia Reassessment: Demonstrates knowledge of O2 Rx with exercise - Medications Medication list reviewed:: Yes Medication reassessment: Yes Pt demonstrates correct technique timing for MDI, Yes Pt demonstrates correct technique timing for DPI, Yes Pt demonstrates correct technique timing for NEB, Yes Pt demonstrates correct technique timing for spacer - Returned demonstration use of spacer - Bronchial Hygiene Bronchial Hygiene Plan: Yes Pt demonstrates correctly for effective cough, Yes Pt demo correct for device - returned proper use of PEP therapy device, Yes Pt demo correct for improved hydration, Yes Pt demo correct for hand hygiene - properly uses hand hygeine, Yes Pt demo correct for verbalize when to call MD Psychosocial - 60-Day - Assessment Depression reassess: Management of stress: Progressing, Management of depression: Progressing, Practicing interventions: Progressing Tobacco - 60-Day Assessment - Program Goals Tobacco Program Goals: Complete smoking cessation. Attend education classes. Improve Knowledge Test score - Stage of Change Stages of Change:: Action - Learning Barriers Learning Barriers: Participates in education - Family Support Do you have family support?: Yes - Tobacco Use Tobacco Use: Non-smoker Do you use smokeless tobacco?: No - Intervention Smoking Cessation Referral:: No Education Schedule Given:: Yes - Education Gave Education Materials For:: Pulmonary Disease, Risk Factors, Breathing Techniques, Medical Compliance, Pulmonary A&P, Exacerbation Signs & Symptoms, Stress & Relaxation Nutrition/Wt Mgmt - 60-Day - Weight Management Weight:: 367 lb 8 oz Weight Goals Progress:: Referral to structured weight management program - Patient could benefit from a Structured Weight loss program. Patient Health Questionnaire 60-Day Re-eval Assessment 1. Little interest or pleasure in doing things: Several days 2. Feeling down, depressed, or hopeless: Several days 3. Trouble falling or staying asleep, or sleeping too much: Not at all 4. Feeling tired or having little energy: Not at all 5. Poor appetite or overeating: Not at all 6. Feeling bad about yourself -- or that you are a failure or have let yourself or your family down: Not at all 7. Trouble concentrating on things, such as reading the newspaper or watching television: Not at all 8. Moving or speaking so slowly that other people could have noticed. Or the opposite - being so fidgety or restless that you have been moving around a lot more than usual: Not at all 9. Thoughts that you would be better off , or of hurting yourself in some way: Not at all How difficult have these problems made it for you to do your work, take care of things at home, or get along with other people?: Not difficult at all Total Score: 2 COPD Assessment Test [CAT] - Questions Never cough = 0, Cough all the time = 5: 1 No phlegm = 0, Chest full of phlegm = 5: 1 No chest tightness = 0, Chest very tight = 5: 5 No breathless w/exertion = 0, Very breathless w/exertion = 5: 4 No limitations w/activity = 0, Very limited w/activity = 5: 0 Confident leaving home = 0, Not at all confident = 5: 3 Sleep soundly = 0, Don't sleep soundly = 5: 1 Lots of energy = 0, No energy at all = 5: 2 Total CAT score:: 17 Self-Efficacy 60-Day Re-eval Assessment We would like to know how confident you are in doing certain activities. Please select your confidence level for:: Select your confidence level for the following using the scale 1-10 where 1 is not at all confident and 10 is totally confident. Your score is the average of all 6 responses. Fatigue: How confident are you that you can keep the fatigue caused by your disease from interfering with the things you want to do? Select Number: 10 Physical Discomfort or Pain: How confident are you that you can keep the physical discomfort or pain of your disease from interfering with the things you want to do? Select Number: 10 Emotional Distress: How confident are you that you can keep the emotional distress caused by your disease from interfering with the things you want to do? Select Number: 10 Other Symptoms or Health Problems: How confident are you that you can keep other symptoms or health problems from interfering with the things you want to do? Select Number: 10 Different Tasks and Activities: How confident are you that you can do the different tasks and activities needed to manage your health condition so as to reduce your need to see a doctor? Select Number: 10 Medication: How confident are you that you can do things other than just taking medication to reduce how much your illness affects your everyday life? Select Number: 10 Total Score:: 10
== END 2018-08-23 23:59 ==
LOC: PR 09:30
PROVIDERS: Family Provider Preventive Medicine Occupational Medicine; PCP Preventive Medicine Occupational Medicine; Referring Provider Internal Medicine Critical Care Medicine; Visit Provider Internal Medicine Critical Care Medicine
DX: J44.9 Chronic obstructive pulmonary disease, unspecified (principal)
CPT/HCPCS: 97150; G0424

== ENCOUNTER → 2019-03-06 | Outpatient (CLI) | payer MEDICARE, SELFPAY ==
[2019-02-05 10:07] VITALS: BMI 53.6
--- NOTE | 2019-03-06 19:13 | CT_ITS ---
STUDY: LOW DOSE CT LUNG CANCER SCREENING REASON FOR EXAM: Male, 68 years old. RADIATION DOSAGE (If Supplied By Facility): CTDIvol = ( 4.02 ) mGy, DLP = ( 158.53 ) mGycm TECHNIQUE: No contrast was administered. Low dose technique was utilized (average mAS-38 and kVp 120). 1.25 mm axial source images with a slice interval of 1.25-mm were reconstructed in lung windows. 2.5 mm axial source images with a slice interval of 2.5-mm were reconstructed in lung windows. 5.0 mm axial source images with a slice interval of 5.0-mm were reconstructed in soft tissue windows. Nodule measured using lung windows on PACS and/or independent workstation with automated measurement of minimum and maximum diameter. Nodule measurement reported as average diameter rounded to the nearest whole number. Growth is defined as an increase ins size of greater than 1.5 mm. COMPARISON: None. NODULES: In the central right middle lobe, there is a part solid nodule measuring 1.1 x 0.7 cm on axial image 138, contiguous with the major fissure. There is a 5 mm solid component along the posterior nodule. Linear fibrotic changes of the posterior right upper lobe. Emphysema: Mild Endobronchial lesion: None Aorta: Diffuse atherosclerosis. Coronary arteries: Sternal wires and mediastinal surgical clips compatible with prior CABG. Heart: Normal size Pulmonary artery: Unremarkable for unopacified technique. Mediastinal nodes: No hilar or mediastinal adenopathy. Other chest and abdominal findings: Gallstones are noted. CT/Low Dose CT Lung Screening IMPRESSION: Lung-RADS category 3- 1.1 x 0.7 cm part solid nodule (5 mm solid component) in the right middle lobe. Recommend follow-up low-dose CT in 6 months. IMPORTANT NOTES FOR USE: ACR Lung-RADS Version 1.0 Assessment Categories Release Date: January 19, 2014 Category: Coded 0-4 bases on nodule(s) with highest degree of suspicion. Negative screen is defined as categories 1 and 2; a positive screen is defined as categories 3 and 4. Category 3 and 4A nodules that are unchanged on interval CT should be coded as category 2, and individuals returned to screening in 12 months. Category 4X: Category 3 or 4 nodules with additional imaging findings that increase the suspicion of lung cancer, such as spiculation, GGN that doubles in size in 1 year, enlarged lymph notes, etc. Category Modifiers: S (significant finding unrelated to lung cancer) and C (prior history of treated lung cancer) may be added to the 0-4 Lung-RADS Electronically Signed: Todd Hirsch MD at 15:28 EDT , Service support ,
== END | disposition home or self-care (01) ==
LOC: CT 19:08
PROVIDERS: Family Provider Preventive Medicine Occupational Medicine; PCP Preventive Medicine Occupational Medicine; Referring Provider Nurse Practitioner Acute Care; Visit Provider Nurse Practitioner Acute Care
DX: Z87.891 Personal history of nicotine dependence (principal)
CPT/HCPCS: G0297

== ENCOUNTER → 2019-03-06 | Outpatient (CLI) | payer MEDICARE, SELFPAY ==
[2019-02-05 10:07] VITALS: BMI 53.6
== END | disposition home or self-care (01) ==
PROVIDERS: Family Provider Preventive Medicine Occupational Medicine; PCP Preventive Medicine Occupational Medicine; Visit Provider Nurse Practitioner Acute Care
DX: G47.33 Obstructive sleep apnea (adult) (pediatric) (principal); Z87.891 Personal history of nicotine dependence
CPT/HCPCS: 95811; G0297

== ENCOUNTER → 2019-05-01 | Outpatient (CLI) | payer MEDICARE, SELFPAY ==
[2019-02-05 10:07] VITALS: BMI 53.6
--- NOTE | 2019-05-01 11:46 | PFTCOMP ---
COMPLETE PULMONARY FUNCTION TEST INTERPRETATION Brief HPI: Patient is a 68 year old male, currently under the care of Dr. Victor, who presents to [facility] for complete pulmonary function tests secondary to diagnosis of COPD. Respiratory therapist reports good effort and reproducible results. Interpretation: Forced expiration spirometry shows a severe large airways obstructive ventilatory defect with an FEV1 of 51% predicted. There is a significant bronchodilator response FEV1 by strict ATS criteria. Spirograms are of good quality and plateau slowly, indicating slowly emptying areas of the lungs. The respiratory flow volume loop shows decreased expiratory flow rates at all lung volumes consistent with airway obstruction. Lung volumes by body plethysmography show an elevated total lung capacity at 8.01 L, 120% predicted. FRC and RV are elevated out of proportion. Lung volume measurements are consistent with hyperinflation and air-trapping. Diffusion capacity by carbon monoxide is reduced at 52% predicted. The airway resistance is elevated. Compared to previous pulmonary function tests from 05/29/2018, there has been no significant change. Impression: Partially reversible severe large airways obstructive ventilatory defect with symmetric reduction diffusion capacity, resulting in air trapping with hyperinflation, and a pattern consistent with COPD/asthma overlap syndrome.
== END | disposition home or self-care (01) ==
LOC: PSN 09:06
PROVIDERS: Family Provider Preventive Medicine Occupational Medicine; PCP Preventive Medicine Occupational Medicine; Referring Provider Nurse Practitioner Acute Care; Visit Provider Nurse Practitioner Acute Care
DX: J44.9 Chronic obstructive pulmonary disease, unspecified (principal)
CPT/HCPCS: 94060; 94726; 94729

== ENCOUNTER → 2019-05-05 | Outpatient (CLI) | payer MEDICARE, SELFPAY ==
[2019-02-05 10:07] VITALS: BMI 53.6
[2019-05-05 09:29] VITALS: PULSE 112; PULSE 114; PULSE 120; PULSE 121; PULSE 129; PULSE 85; PULSE 90; PULSE 91; O2SAT 88; O2SAT 90; O2SAT 91; O2SAT 92; O2SAT 93; O2SAT 94; O2SAT 97
--- NOTE | 2019-05-05 09:32 | CPS ---
Patient states he wears 2 lpm at home occasionally. Started testing on room air SpO2 90-92%. By the second minute SpO2 88%. Patient walked the remainder of the test on 2 lpm taking a few breaks due to leg, knee and back pain.
--- NOTE | 2019-05-05 11:41 | PCM.PSN.6M ---
PSN 6 Minute Walk Test - 6 Minute Walk Test 6 Minute Walk Test: 6 Minute Walk Test PSN:6-Minute Walk Test Start: 05/05/19 09:26 Freq: Status: Active Protocol: [id number] Document 05/05/19 09:29 ALFREDO (Rec: 05/05/19 09:33 ALFREDO [id number]) 6 Minute Walk Test Date Performed 05/05/19 Time Performed 09:00 Height 5 ft 10.5 in Weight: 399 lb Weight in Pounds 399.[address]: Roxanne Ruelas Assistive device used: None Pre-test Oxygen Delivery Method Room Air Pulse Ox (%) 90 Pulse Rate (60-100 beats/min) 85 Dyspnea Camelia Scale (0-10) 0 Exertion Camelia Scale (6-20) 6 1st minute Oxygen Delivery Method Room Air Pulse Ox (%) 90 Pulse Rate (60-100 beats/min) 90 2nd minute Oxygen Delivery Method Room Air Pulse Ox (%) 88 Pulse Rate (60-100 beats/min) 114 H 3rd minute Oxygen Flow Rate (L/min) (L/min) 2 Oxygen Delivery Method Nasal Cannula Pulse Ox (%) 93 Pulse Rate (60-100 beats/min) 120 H 4th minute Oxygen Flow Rate (L/min) (L/min) 2 Oxygen Delivery Method Nasal Cannula Pulse Ox (%) 94 Pulse Rate (60-100 beats/min) 121 H Number of Rests Taken 1 5th minute Oxygen Flow Rate (L/min) (L/min) 2 Oxygen Delivery Method Nasal Cannula Pulse Ox (%) 92 Pulse Rate (60-100 beats/min) 112 H Number of Rests Taken 1 6th minute Oxygen Flow Rate (L/min) (L/min) 2 Oxygen Delivery Method Nasal Cannula Pulse Ox (%) 91 Pulse Rate (60-100 beats/min) 129 H Dyspnea Camelia Scale (0-10) 3 Exertion Camelia Scale (6-20) 15 Post-test Oxygen Flow Rate (L/min) (L/min) 2 Oxygen Delivery Method Nasal Cannula Pulse Ox (%) 97 Pulse Rate (60-100 beats/min) 91 Full Laps Walked 11 Partial Lap, Number of Tiles Walked 10 Total Distance Walked (ft) 659 05/05/19 09:32 Cardiopulmonary Services by Breanne Steele Patient states he wears 2 lpm at home occasionally. Started testing on room air SpO2 90-92%. By the second minute SpO2 88%. Patient walked the remainder of the test on 2 lpm taking a few breaks due to leg, knee and back pain. Initialized on 05/05/19 09:32 - END OF NOTE - Interpretation Interpretation: The patient ambulated 659 feet over the course of 6 minutes beginning on room air without assistive devices or breaks. Pretesting oxygen saturation was noted to be 90% on room air. With ambulation, the bhavesh oxygen saturation was 88%. 2 L/min of supplemental oxygen was applied and the patient was able to complete the remainder of the test while maintaining appropriate oxygen saturations. This testing indicates the presence of impaired walk distance along with a pulmonary limitation to exercise tolerance. - Recommendations Recommendations: 2 L/min of supplemental oxygen should be utilized with exertion.
== END | disposition home or self-care (01) ==
LOC: PSN 08:49
PROVIDERS: Family Provider Preventive Medicine Occupational Medicine; PCP Preventive Medicine Occupational Medicine; Referring Provider Nurse Practitioner Acute Care; Visit Provider Nurse Practitioner Acute Care
DX: J44.9 Chronic obstructive pulmonary disease, unspecified (principal)
CPT/HCPCS: 94618

== ENCOUNTER → 2019-09-05 12:58 | Outpatient (CLI) | payer MEDICARE, SELFPAY ==
[2019-05-15 09:17] VITALS: BMI 54.3
--- NOTE | 2019-09-05 13:02 | CT_ITS ---
STUDY: CT CHEST WITHOUT CONTRAST REASON FOR EXAM: Male, 69 years old. Follow-up of a nodule in the right middle lobe. RADIATION DOSAGE (If Supplied By Facility): CTDIvol = ( 24.62 ) mGy, DLP = ( 974.03 ) mGycm TECHNIQUE: Transaxial imaging was performed without the administration of intravenous contrast material. Multiplanar coronal and sagittal images were reformatted. Individualized dose optimization techniques were used for this CT. COMPARISON: Comparison is made with prior examination dated March 06, 2019. FINDINGS: Stable 9.3 mm x 10.8 mm solid/cystic nodule in the medial aspect of the right middle lobe. This is seen on axial image #174 and coronal image #90. Blebs are seen in the upper lobes in a background of mild degree of emphysematous changes. Mild degree of lateral pleural thickening posteriorly on the right side with mild degree of scarring at the right lung base. Sternal cerclage wires and vascular clips are present from a prior sternotomy and coronary artery bypass graft procedure (CABG). Coronary calcification. Normal mediastinum. Normal hilar regions. Normal unenhanced pulmonary arteries. Normal aorta arch and descending thoracic aorta. There are mild degenerative changes of the thoracic spine. There is no demonstrated abnormality of the visualized upper abdomen. CT/Chest without Contrast IMPRESSION: Stable 9.3 mm x 10.8 mm nodule in the medial aspect of the right middle lobe. A repeat 6 month follow-up is recommended. Electronically Signed: Lauro Aldana, at 15:12 EST , Service support ,
== END ==
PROVIDERS: Family Provider Preventive Medicine Occupational Medicine; PCP Preventive Medicine Occupational Medicine; Referring Provider Internal Medicine Critical Care Medicine; Visit Provider Internal Medicine Critical Care Medicine
DX: R91.1 Solitary pulmonary nodule (principal)
CPT/HCPCS: 71250

== ENCOUNTER → 2020-02-27 16:43 | Outpatient (CLI) | payer MEDICARE, SELFPAY ==
[2019-09-15 07:47] VITALS: BMI 54.4
--- NOTE | 2020-02-27 16:43 | CT_ITS ---
STUDY: CT CHEST WITHOUT CONTRAST REASON FOR EXAM: Male, 69 years old. Lung mass. RADIATION DOSAGE (If Supplied By Facility): CTDIvol = ( 28.71 ) mGy, DLP = ( 1161.81 ) mGycm TECHNIQUE: Transaxial imaging was performed without the administration of intravenous contrast material. Coronal and sagittal reformatted images were created. Individualized dose optimization techniques were used for this CT. COMPARISON: 09/05/19 FINDINGS: There are stable emphysematous changes noted in the lungs. There is a significant 11 mm nodule in the right middle lobe. There are no new nodules or masses. There is no pneumothorax. The patient is status post sternotomy and coronary artery bypass. The heart is normal in size. There is no thoracic lymphadenopathy. There is no evidence of thoracic aortic aneurysm. Images through the upper abdomen demonstrate gallstones. The liver is low density, consistent with fatty infiltration. There are no destructive osseous lesions. CT/Chest without Contrast IMPRESSION: Stable emphysema with a stable 11 mm nodule in the right middle lobe. No new nodules or masses. No pulmonary infiltrates or pleural effusions. Gallstones. Fatty liver. Electronically Signed: Sven Arnodl, at 17:11 EDT Tel , Service support ,
== END ==
PROVIDERS: PCP Preventive Medicine Occupational Medicine; Referring Provider Nurse Practitioner Acute Care; Visit Provider Nurse Practitioner Acute Care
DX: R91.8 Other nonspecific abnormal finding of lung field (principal)
CPT/HCPCS: 71250

== ENCOUNTER → 2020-09-08 07:20 | Outpatient (CLI) | payer MEDICARE, SELFPAY ==
[2020-03-02 08:02] VITALS: BMI 55.7
--- NOTE | 2020-09-08 07:21 | CT_ITS ---
STUDY: CT CHEST WITHOUT CONTRAST REASON FOR EXAM: Male, 70 years old. LUNG NODULE F/U RML RADIATION DOSAGE (If Supplied By Facility): CTDIvol = ( 28.71 ) mGy, DLP = ( 1154.63 ) mGycm TECHNIQUE: Transaxial imaging was performed without the administration of intravenous contrast material. Multiplanar coronal and sagittal images were reformatted. Individualized dose optimization techniques were used for this CT. COMPARISON: Comparison is made with prior study dated 02/27/2020. FINDINGS: Small benign appearing bilateral axillary nodes. Stable bullous changes in the lung apices. Stable pleural-parenchymal changes in the posterior lateral aspect of the right lower lobe. Mild degree of emphysematous changes. Stable 1.1 synovitis O 0.8 cm part solid nodule is seen in the medial/central aspect of the right middle lobe posteriorly. This is seen on axial image #71. This is unchanged from prior multiple examinations. There is no demonstrated pleural abnormality. Sternal cerclage wires and vascular clips are present from a prior sternotomy and coronary artery bypass graft procedure (CABG). There are calcifications of the coronary arteries. There are multiple small lymph nodes within the mediastinum, which are normal in size and morphology most compatible with reactive lymph hyperplasia. Normal hilar regions. Normal unenhanced pulmonary arteries. There is atherosclerotic calcification of the aortic arch with tortuosity and elongation of the aortic arch and descending thoracic aorta. Normal osseous structures. Multiple small gallstones. Fatty infiltration of the liver. CT/Chest without Contrast IMPRESSION: Stable examination. Electronically Signed: Lauro Aldana, at 8:49 EST , Service support ,
== END ==
PROVIDERS: PCP Preventive Medicine Occupational Medicine; Referring Provider Internal Medicine Critical Care Medicine; Visit Provider Internal Medicine Critical Care Medicine
DX: R91.1 Solitary pulmonary nodule (principal)
CPT/HCPCS: 71250

== ENCOUNTER → 2021-08-31 08:01 | Outpatient (CLI) | payer MEDICARE, SELFPAY ==
--- NOTE | 2021-08-31 08:03 | CT_ITS ---
STUDY: CT CHEST WITHOUT CONTRAST REASON FOR EXAM: Male, 71 years old. Follow known 1 cm mass RADIATION DOSAGE (If Supplied By Facility): CTDIvol = ( 28.71 ) mGy, DLP = ( 1090.04 ) mGycm TECHNIQUE: Transaxial imaging was performed without the administration of intravenous contrast material. Multiplanar coronal and sagittal images were reformatted. Individualized dose optimization techniques were used for this CT. COMPARISON: Comparison is made with prior study dated 09/08/2020. FINDINGS: Stable small benign-appearing bilateral axillary lymph nodes. Stable focal area of scarring and bronchiectasis in the posterior medial aspect of the right middle lobe. No definite nodule is seen at this time. Stable mild scarring at the lung bases. There is no demonstrated pleural abnormality. Sternal cerclage wires and vascular clips are present from a prior sternotomy and coronary artery bypass graft procedure (CABG). There are calcifications of the coronary arteries. There are multiple small lymph nodes within the mediastinum, which are normal in size and morphology most compatible with reactive lymph hyperplasia. Normal hilar regions. Normal unenhanced pulmonary arteries. Normal aorta arch and descending thoracic aorta. There are mild degenerative changes of the thoracic spine. Multiple small gallstones. CT/Chest without Contrast IMPRESSION: There is evidence of scarring and bronchiectasis along the posterior medial aspect of the right middle lobe. No definite nodule is seen at this time. Electronically Signed: Lauro Aldana MD at 12:01 EST , Service support ,
== END ==
PROVIDERS: PCP Preventive Medicine Occupational Medicine; Referring Provider Nurse Practitioner Acute Care; Visit Provider Nurse Practitioner Acute Care
DX: R91.8 Other nonspecific abnormal finding of lung field (principal)
CPT/HCPCS: 71250

== ENCOUNTER 2022-08-25 07:47 | Outpatient (CLI) | payer MEDICARE, SELFPAY ==
--- NOTE | 2022-08-25 07:50 | CT_ITS ---
STUDY: LOW DOSE CT LUNG CANCER SCREENING REASON FOR EXAM: Male, 72 years old. h/o tobacco dependency. The patient smoked 1 1/2 packs per day for 39 years. Former smoker. RADIATION DOSAGE (If Supplied By Facility): CTDIvol = ( 4.04 ) mGy, DLP = ( 154.01 ) mGycm TECHNIQUE: No contrast was administered. Low dose technique was utilized (average mAS-38 and kVp 120). 1.25 mm axial source images with a slice interval of 1.25-mm were reconstructed in lung windows. 2.5 mm axial source images with a slice interval of 2.5-mm were reconstructed in lung windows. 5.0 mm axial source images with a slice interval of 5.0-mm were reconstructed in soft tissue windows. COMPARISON: Comparison is made with prior examination dated 08/31/2021. NODULES: No suspicious nodules are seen. Emphysema: Hyperinflation. Mild degree of emphysematous changes involving both lungs worse in the upper lobes. Mild increased markings in the posterior lateral aspect of the right lower lobe suggestive of a scarring. This is essentially unchanged. Mild degree of overlying pleural thickening. Endobronchial lesion: None Aorta: Atherosclerotic plaque formation. CORONARY ARTERIES: Coronary artery calcification is seen. Heart: Prior CABG. Pulmonary artery: Unremarkable Mediastinal nodes: Stable multiple small mediastinal lymph nodes. Other chest and abdominal findings: Multiple small gallstones CT/Low Dose CT Lung Screening IMPRESSION: Lung-RADS category 2 - Continue annual screening with LDCT in 12 months. IMPORTANT NOTES FOR USE: ACR Lung-RADS Version 1.1 Assessment Categories Release Date: 2018 Category: Coded 0-4 bases on nodule(s) with highest degree of suspicion. Negative screen is defined as categories 1 and 2; a positive screen is defined as categories 3 and 4. Category 3 and 4A nodules that are unchanged on interval CT should be coded as category 2, and individuals returned to screening in 12 months. Category 4X: Category 3 or 4 nodules with additional imaging findings that increase the suspicion of lung cancer, such as spiculation, GGN that doubles in size in 1 year, enlarged lymph notes, etc. Category Modifiers: S (significant finding unrelated to lung cancer) Electronically Signed: Lauro Aldana MD at 13:22 EST ,
== END 2022-08-25 23:59 | disposition home or self-care (01) ==
LOC: CT 07:49
PROVIDERS: PCP Preventive Medicine Occupational Medicine; Referring Provider Internal Medicine Critical Care Medicine; Visit Provider Internal Medicine Critical Care Medicine
DX: Z87.891 Personal history of nicotine dependence (principal)
CPT/HCPCS: 71271

== ENCOUNTER → 2023-09-12 | Outpatient (CLI) | payer MEDICARE, SELFPAY ==
--- NOTE | 2023-09-12 13:01 | CT_ITS ---
STUDY: LOW DOSE CT LUNG CANCER SCREENING REASON FOR EXAM: Male, 73 years old. and gt; 20 pack years quit 2008 RADIATION DOSAGE (If Supplied By Facility): CTDIvol = ( 4.02 ) mGy, DLP = ( 140.44 ) mGycm TECHNIQUE: No contrast was administered. Low dose technique was utilized (average mAS-38 and kVp 120). 1.25 mm axial source images with a slice interval of 1.25-mm were reconstructed in lung windows. 2.5 mm axial source images with a slice interval of 2.5-mm were reconstructed in lung windows. 5.0 mm axial source images with a slice interval of 5.0-mm were reconstructed in soft tissue windows. COMPARISON: Comparison is made with prior study dated August 25, 2022. NODULES: No suspicious nodules are seen. Emphysema: Hyperinflation. Mild degree of emphysematous changes involving both lungs worse in the upper lobes. Mild scarring in the peripheral lateral aspect of the right lower lobe. This abuts the pleural surface. This is unchanged. Endobronchial lesion: None Aorta: Atherosclerotic plaque reformation at level of the aortic arch. CORONARY ARTERIES: Coronary artery calcification is seen. Prior CABG. Heart: Prior CABG. Pulmonary artery: Unremarkable Mediastinal nodes: Small mediastinal nodes. Other chest and abdominal findings: CT/Low Dose CT Lung Screening IMPRESSION: Lung-RADS category 2 - Continue annual screening with LDCT in 12 months. IMPORTANT NOTES FOR USE: ACR Lung-RADS Version 1.1 Assessment Categories Release Date: 2018 Category: Coded 0-4 bases on nodule(s) with highest degree of suspicion. Negative screen is defined as categories 1 and 2; a positive screen is defined as categories 3 and 4. Category 3 and 4A nodules that are unchanged on interval CT should be coded as category 2, and individuals returned to screening in 12 months. Category 4X: Category 3 or 4 nodules with additional imaging findings that increase the suspicion of lung cancer, such as spiculation, GGN that doubles in size in 1 year, enlarged lymph notes, etc. Category Modifiers: S (significant finding unrelated to lung cancer) Electronically Signed: Lauro Aldana MD at 14:20 EST ,
== END | disposition home or self-care (01) ==
LOC: CT 13:01
PROVIDERS: PCP Preventive Medicine Occupational Medicine; Referring Provider Nurse Practitioner Acute Care; Visit Provider Nurse Practitioner Acute Care
DX: Z12.2 Encounter for screening for malignant neoplasm of respiratory organs (principal); R91.8 Other nonspecific abnormal finding of lung field; Z87.891 Personal history of nicotine dependence
CPT/HCPCS: 71271

== ENCOUNTER 2024-01-16 13:06 | Outpatient (RCR) | payer MEDICARE, SELFPAY ==
[2024-01-16 13:26] VITALS: BP 112/62; PULSE 98; RESP 18; TEMP 36.6; BMI 51.2
--- NOTE | 2024-01-16 14:26 | PCM.WC.HP ---
History of Present Illness Date of Service: 01/16/24 Chief Complaint: Right foot and ankle wounds History of Wound: Nonhealing right foot and ankle wounds Progress of Wound: Mr. Shi is a 73-year-old diabetic male present to the wound care center today secondary to referral from Dr. Castro for right foot and ankle wounds. Patient states that his wound started as a blister secondary to pruritus. Patient states that he was itching so much he caused blistering to his foot and ankle area. Patient unfortunately picked at the blister thus resulting in the wounds that he presents with today. He has been on oral antibiotics Keflex for infection control. The patient is a diabetic and states that he is well-controlled. He ambulates in diabetic shoes. He admits there is only wounds to the right foot. No treatment for the wounds thus far. He denies trauma. Denies constitutional symptoms. No other pedal complaints at this time. [facility] Medical History COPD (chronic obstructive pulmonary disease) Diabetes Former smoker Home Medications albuterol sulfate 2.5 mg/3 mL (0.083 %) solution for nebulization 2.5 mg inhalation Q6H PRN 05/02/18 [History Last Taken Unknown] aspirin 81 mg tablet,delayed release 81 mg PO QDAY 05/02/18 [History Last Taken Unknown] citalopram 40 mg tablet 20 mg PO QDAY 05/02/18 [History Last Taken Unknown] furosemide 40 mg tablet 40 mg PO BID 05/02/18 [History Last Taken Unknown] metformin 1,000 mg tablet 1,000 mg PO ONCE 05/02/18 [History Last Taken Unknown] metoprolol tartrate 25 mg tablet 25 mg PO ONCE 05/02/18 [History Last Taken Unknown] simvastatin 80 mg tablet 80 mg PO ONCE 05/02/18 [History Last Taken Unknown] insulin human U-100 NPH-regulr 70-30 mix 100 unit/mL subcutaneous susp (Novolin 70/30 U-100 Insulin) See Rx Instructions subcut BID 08/07/18 [History Last Taken Unknown] albuterol sulfate 90 mcg/actuation aerosol inhaler (Ventolin HFA) 2 puff inhalation Q4H PRN shortness of breath or wheezing #18 grams 02/05/19 [Rx Last Taken Unknown] losartan 50 mg tablet 50 mg PO DAILY 10/28/20 [History Last Taken Unknown] terbinafine HCl 250 mg tablet 250 mg PO DAILY 02/14/21 [History Last Taken Unknown] Symbicort 80 mcg-4.5 mcg/actuation HFA aerosol inhaler (budesonide-formoterol) 2 inh inhalation BID #10.2 grams 03/13/22 [Rx Last Taken Unknown] tiotropium bromide 18 mcg capsule with inhalation device (Spiriva with HandiHaler) 1 cap inhalation QDAY #180 inhalations 04/30/23 [Rx Last Taken Unknown] semaglutide 1 mg/dose (4 mg/3 mL) subcutaneous pen injector (Ozempic) mg subcut QWEEK 11/22/23 [History Last Taken Unknown] Allergy/AdvReac Type Severity Reaction Status Date / Time No Known Allergies Allergy Verified 11/22/23 13:50 Family History Father Heart disease Diabetes Brother Cancer Throat Grandmother Breast cancer Surgical History S/P CABG x 3 Social History Smoking Status: Former smoker second hand exposure: Yes alcohol intake: current alcohol intake frequency: holidays/special occasions only Alcohol type: beer substance use type: does not use caffeine: Yes what type of physical activity do you participate in: none Vital Signs Vital Signs Vital Signs: 01/16/24 13:26 Temperature 97.9 F Temperature Source Temporal Pulse Rate 98 Respiratory Rate 18 Blood Pressure 112/62 Blood Pressure Mean 78 Blood Pressure Source Monitor Blood Pressure Position Semi-Fowlers Blood Pressure Location Left Forearm Oxygen Delivery Method Room Air Weight Weight: 159.665 kg Body Mass Index (BMI) 51.2 Physical Exam Narrative Vascular: DP and PT pulses are palpable bilateral. Nonpitting edema appreciated to the right lower extremity. Skin temperature gradient warm to warm from proximal ankle to distal digits with no focal increase. Skin is well-hydrated and supple. Neurological: Light touch intact. Protective sensation is diminished to the bilateral lower extremity. Dermatological: 2 full-thickness ulcerations to the foot and ankle. Right foot ulceration measures 1.0 x 1.2 x 0.1 cm. The right ankle ulceration measures 2.9 x 1.9 x 0.1 cm. Both wound base are granular in nature with no sign of infection. There is blanchable erythema appreciated to the right foot wound with no proximal streaking. No probe to bone. No malodor. Webspaces 1-4 are clean dry and intact. Excision debridement down to and including subcutaneous tissue of the right foot wound with a number 3 mm dermal curette without incident. Predebridement measurement is 0.8 x 1.0 x 0.1 cm. Postdebridement measurement is 1.0 x 1.2 x 0.1 cm. Excision debridement down to and including subcutaneous tissue of the right ankle wound with a number 3 mm dermal curette without incident. Predebridement measurement is 2.7 x 1.7 x 0.1 cm. Postdebridement measurement is 2.9 x 1.9 x 0.1 cm. Musculoskeletal: Muscle strength is 5 and 5 in all quadrants bilateral. No pain on palpation to the full-thickness ulceration. No pain with calf pression. Debridement Note Debridement Note Debridement Free Text: Excision debridement down to and including subcutaneous tissue of the right foot wound with a number 3 mm dermal curette without incident. Predebridement measurement is 0.8 x 1.0 x 0.1 cm. Postdebridement measurement is 1.0 x 1.2 x 0.1 cm. Excision debridement down to and including subcutaneous tissue of the right ankle wound with a number 3 mm dermal curette without incident. Predebridement measurement is 2.7 x 1.7 x 0.1 cm. Postdebridement measurement is 2.9 x 1.9 x 0.1 cm. Post-Debridement Measurements and Additional Note: Post-Debridement Measurements/Treatment - Nurse 1 - General Ulcer Assessment Start: 01/16/24 13:26 Freq: Status: Active Protocol: VAHID Activity Type Activity Date Activity User E-sign Co-sign Detail Recorded Client Recorded Date Recorded By Document 01/16/24 13:26 KW Desktop 01/16/24 13:33 KW 01/16/24 13:26 - Today's Visit Information Type of service Initial Visit Arrival Mode Ambulatory Patient Identification Verified (Name & Yes ) Finger Stick Blood Sugar(mg/dl) (if 178 indicated): Blood Sugar Stated by Patient Height and Weight Height 5 ft 9.5 in Weight 159.665 kg Weight in Pounds 352.0 lbs Body Mass Index (BMI) 51.2 BMI Classification Obese BSA - Swapna 2.64 Vital Signs Temperature (97.8 F-99.1 F) 97.9 F Temperature Source Temporal Pulse Rate (60-100) 98 Pulse Location Monitor Respiratory Rate (12-18) 18 Respiratory rate source Observation Oxygen Delivery Method Room Air Blood Pressure (90/60-120/80) 112/62 Blood Pressure Mean (mm Hg) 78 Source Monitor Position Semi-Fowlers Blood Pressure Location Left Forearm History Since Last Visit- (Skip if this is Patient's initial visit) Left Footwear Regular Shoe Right Footwear Regular Shoe Pain Scale: 0-10 Numeric Is Patient Pain Free? Yes Lower Extremity Assessment/ Foot Assessment/ Toe Nail Assessment Right -Popliteal Doppler Monophasic -Posterior Tibial Doppler Monophasic -Extremity Color Hyperpigmented -Hair Growth on Legs Yes -Hair Growth on Toes No -Temperature of Extremity Warm Left -Posterior Tibial Doppler Monophasic -Dorsalis Pedis Doppler Monophasic -Extremity Color Hyperpigmented -Hair Growth on Legs Yes -Hair Growth on Toes No -Temperature of Extremity Warm -Thick Yes -Discolored Yes -Deformed No -Improper Length & Hygeine No Communication Assessment Preferred language Latvian Pole Setter Required No Able to Read Yes Able to Write Yes Communication Tools None Caregiver Communication Skills No Impairment Impairment Right Hearing Abillity Normal Left Hearing Abillity Normal Visual Assistive Devices None Teaching Assessment Preferences Verbal,Written, Demonstration Barriers to Learning None Readiness To Learn Excellent Willingness to Engage in Self Management High Activies Readiness to Engage in Self Management High Activities Anxiety Level Calm Cooperation Cooperative Perception Coherent Interest in Health Problem Asks Questions Education Importance Acknowledges Need Does Patient Smoke tobacco or other Yes substances Smoking Status Former smoker Is Patient Diabetic Yes Functional Assessment Recent Decline in Ability to Perform Denies Any Declines Culture/Tenriism/Floral Specialist Cultural/Tenriism Needs that may affect No Treatment Plan Would you allow our hospital teacher emotionally impaired to No meet you for the purpose of spiritual/ emotional support? Floral Specialist to contact place of zoroastrianism No WC - Nurse 1 - General Ulcer Measurement Start: 01/16/24 13:26 Freq: Status: Active Protocol: Activity Type Activity Date Activity User E-sign Co-sign Detail Recorded Client Recorded Date Recorded By Document 01/16/24 13:26 KW Desktop 01/16/24 13:33 KW 01/16/24 13:26 Wound Center Nurse 1 #2 RT DORSAL FT -Current Size (cm) - Length 0.8 -Current Size (cm) - Width 1 -Current Size (cm) - Depth 0.1 -Total Square Cm 0.8 -Date of Last Picture (Recall this 01/16/24 field) -Exudate Amt Small -Exudate Type Serosanguineous -Wound Margin Distinct, Outline Attached -Granulation Amt Small (1-33%) -Granulation Quality [place] -Necrosis Amt Medium (34-66%) -Necrotic Tissue Type Adherent Slough -Texture (Haley-wound Skin Appearance) Assessed -Moisture (Haley-wound Skin Appearance) Assessed -Color (Haley-wound Skin Appearance) Assessed -Temperature (Haley-wound Skin No Abnormality Appearance) (Pt Warm) -Tenderness on Palpation (Haley-wound No Skin Appearance) -Ulcer Cleansing Soap and Water -Anesthetic Used 5% Lidocaine Gel #1 RT MED ANKLE -Current Size (cm) - Length 1.5 -Current Size (cm) - Width 3 -Current Size (cm) - Depth 0.1 -Total Square Cm 4.5 -Date of Last Picture (Recall this 01/16/24 field) -Exudate Amt Small -Exudate Type Serosanguineous -Wound Margin Distinct, Outline Attached -Granulation Amt Medium (34-66%) -Granulation Quality [place] -Necrosis Amt Large (67-100%) -Necrotic Tissue Type Adherent Slough -Texture (Haley-wound Skin Appearance) Assessed -Moisture (Haley-wound Skin Appearance) Assessed -Color (Haley-wound Skin Appearance) Assessed -Temperature (Haley-wound Skin No Abnormality Appearance) (Pt Warm) -Ulcer Cleansing Soap and Water -Anesthetic Used 5% Lidocaine Gel Right Calf (cm) 54.2 Right Ankle (cm) 32.5 Left Calf (cm) 52 Left Ankle (cm) 31.8 WC - Nurse 2 - General Ulcer CM Notes Start: 01/16/24 13:26 Freq: Status: Active Protocol: Activity Type Activity Date Activity User E-sign Co-sign Detail Recorded Client Recorded Date Recorded By Document 01/16/24 13:51 JF Laptop 01/16/24 13:54 JF 01/16/24 13:51 Wound Center Nurse 2 #2 RT DORSAL FT -Time 13:52 -Correct Patient Yes -Correct Side, Site, Position Yes -Correct Procedure Yes -Procedure Performed Yes -Type of Procedure Debridement -Clinical Debridement Subcutaneous -Tissue Removed Subcutaneous -Post Debridement (cm) - Length 1.0 -Post Debridement (cm) - Width 1.2 -Post Debridement (cm) - Depth 0.1 -Total Square (Post) (cm) 1.20 -Area of Debridement (cm) - Length 1.0 -Area of Debridement (cm) - Width 1.2 -Total Square (Area) (cm) 1.20 -Tunneling No -Undermining/Tunneling No -Circular Undermining No -Wound/Ulcer Outcome Not Healed -Ulcer Cleansing Rinsed/ Irrigated with Saline -Foul Odor after Cleansing No -Bioengineered Tissue No -Bleeding Controlled with Pressure -Treatment Response Procedure Tolerated Well -Offloading No -Debridement - Subq, 1st 20sq cm No #1 RT MED ANKLE -Time 13:52 -Correct Patient Yes -Correct Side, Site, Position Yes -Correct Procedure Yes -Procedure Performed Yes -Type of Procedure Debridement -Clinical Debridement Subcutaneous -Tissue Removed Subcutaneous -Post Debridement (cm) - Length 2.9 -Post Debridement (cm) - Width 1.9 -Post Debridement (cm) - Depth 0.1 -Total Square (Post) (cm) 5.51 -Area of Debridement (cm) - Length 2.9 -Area of Debridement (cm) - Width 1.9 -Total Square (Area) (cm) 5.51 -Tunneling No -Undermining/Tunneling No -Circular Undermining No -Wound/Ulcer Outcome Not Healed -Ulcer Cleansing Rinsed/ Irrigated with Saline -Foul Odor after Cleansing No -Bioengineered Tissue No -Bleeding Controlled with Pressure -Treatment Response Procedure Tolerated Well -Offloading No -Debridement - Subq, 1st 20sq cm Yes Pain Scale: 0-10 Numeric Is Patient Pain Free? Yes Assessment/Plan Assessment/Plan (1) Non-pressure chronic ulcer of other part of right foot with fat layer exposed: CODE(S): L97.512 - Non-pressure chronic ulcer of other part of right foot with fat layer exposed PLAN: Patient was examined and evaluated. All findings were discussed with the patient. All questions were answered to the patient's satisfaction. Excision debridement down to and including subcutaneous tissue of the right foot wound with a number 3 mm dermal curette without incident. Predebridement measurement is 0.8 x 1.0 x 0.1 cm. Postdebridement measurement is 1.0 x 1.2 x 0.1 cm. Excision debridement down to and including subcutaneous tissue of the right ankle wound with a number 3 mm dermal curette without incident. Predebridement measurement is 2.7 x 1.7 x 0.1 cm. Postdebridement measurement is 2.9 x 1.9 x 0.1 cm. The right ulcerations were cultured to be sent off for microbiology culture and sensitivity. With the patient is having nonpitting edema and concern for vascular wounds we will begin authorization for venous and arterial studies. The right lower extremities were cleaned and patted dry. The ulceration was dressed with triple ointment antibiotic dry sterile dressing and a single layer Tubigrip. Educated patient that he can wash his right lower extremity with warm water and antibacterial soap dry and apply wound dressings as instructed. He was understanding of this. We also begin authorization for amniotic skin graft substitute through the patient's insurance Follow-up at the wound care center with Dr. Shahid in 1 week. (2) Non-pressure chronic ulcer of right ankle with fat layer exposed: CODE(S): L97.312 - Non-pressure chronic ulcer of right ankle with fat layer exposed (3) Acute painful diabetic polyneuropathy: CODE(S): E11.42 - Type 2 diabetes mellitus with diabetic polyneuropathy (4) Type 2 diabetes mellitus with foot ulcer: CODE(S): E11.621 - Type 2 diabetes mellitus with foot ulcer; L97.509 - Non-pressure chronic ulcer of other part of unspecified foot with unspecified severity (5) Other specified peripheral vascular diseases: CODE(S): I73.89 - Other specified peripheral vascular diseases
--- NOTE | 2024-01-17 08:19 | WC ---
01/16/2024 RIGHT MED ANKLE
--- NOTE | 2024-01-17 08:20 | WC ---
01/16/2024 RIGHT DORSAL FOOT
== END 2024-01-22 23:59 | disposition home or self-care (01) ==
LOC: WC 13:06
PROVIDERS: PCP Preventive Medicine Occupational Medicine; Referring Provider Student in an Organized Health Care Education/Training Program; Visit Provider Podiatrist Foot & Ankle Surgery
DX: E11.621 Type 2 diabetes mellitus with foot ulcer (principal); L97.512 Non-pressure chronic ulcer of other part of right foot with fat layer exposed; L97.312 Non-pressure chronic ulcer of right ankle with fat layer exposed; J44.9 Chronic obstructive pulmonary disease, unspecified; Z79.4 Long term (current) use of insulin; Z79.51 Long term (current) use of inhaled steroids; Z79.82 Long term (current) use of aspirin; Z79.84 Long term (current) use of oral hypoglycemic drugs; Z79.85 Long-term (current) use of injectable non-insulin antidiabetic drugs; Z79.899 Other long term (current) drug therapy; Z87.891 Personal history of nicotine dependence
CPT/HCPCS: 11042; 87070; 87075; 87077; 87102; 87186; 87205; 87206; 99214; G0463

== ENCOUNTER → 2024-01-29 | Outpatient (CLI) | payer MEDICARE, SELFPAY ==
--- NOTE | 2024-01-29 07:30 | PET_ITS ---
EXAMINATION: FDG PET CT HISTORY: 73-year-old male with history of pulmonary nodularity. COMPARISON EXAMINATION: CT of the chest 01/09/2024 INDEX LESION SIZE SUV INTERPRETATION Right infrahilar region 19.4 mm 6.8 Quantitative criteria for viable neoplasm are fulfilled, histopathologic analysis recommended TECHNIQUE: Following the intravenous administration of 13.8 mCi of F-18 deoxyglucose, via the right antecubital fossa, multiplanar image acquisitions of the neck, chest, abdomen and pelvis to the level of mid thigh, obtained at one hour post radiopharmaceutical administration contemporaneously interpreted with the current CT of the neck, chest, abdomen and pelvis to the level of mid thigh, dated 01/29/2024 via coregistration reveals: BLOOD GLUCOSE LEVEL:?124 mg/dL?HEIGHT:?69 inches?WEIGHT: 348 lbs. FINDINGS: Head/Neck: There is no evidence of abnormal increased glucose metabolism in the pharyngeal mucosal space, parapharyngeal space, bilateral-lateral and anterior neck, hypopharynx and distribution of the larynx. The visualized portion of the cerebral cortical-subcortical structures demonstrate symmetric and preserved glucose metabolism. CHEST: Enhanced FDG concentration is demonstrated in the right infrahilar region generating a calculated standard uptake value of 6.8. The maximal axial diameter of the corresponding metabolic, morphologic adenopathy is 19.[address] findings are as follows. Atherosclerotic calcification is defined in the thoracic aorta. Coronary arterial calcification is observed. There is evidence of prior median sternotomy. Mediastinal and bilateral axillary soft tissue densities are ametabolic. There are no additional parenchymal densities nodules defined in the right and left hemithorax with quantitatively significant increased FDG uptake. A Weems changes are encountered in the bilateral upper lung zones. Abdomen/Pelvis: Normal physiologic uptake is noted in the hepatic (2.8) and splenic parenchyma. There is symmetric demonstration of the right and left kidneys, normal uptake in the urinary bladder and visualized intestinal tract. Review of CT of the abdomen and pelvis reveals the following. Cholelithiasis is demonstrated. Atherosclerotic calcification is noted in the abdominal aorta without evidence of aneurysm. Abdominal and pelvic arterial calcification is observed. Right and left inguinal soft tissue densities are nontracer avid. There is calcification noted within the prostate gland. There is stranding circumferential to the bilateral renal units. SKELETAL: Degenerative changes are defined in the axial skeleton without evidence of quantitatively significant increased radiotracer concentration. PET/PET/CT Tumor Base -Thigh Init IMPRESSION: 1. The increase in radiopharmaceutical concentration identified in the right infrahilar region fulfills quantitative criteria for neoplastic transformation with single-point technique. Histopathologic analysis is recommended. 2. No other definitive scintigraphic abnormalities are observed. There is no scintigraphic evidence of distant metastatic disease. Electronic Signature Kostas Renee D.O. Accurate Quantification of SUVs for this report are calculated using the exclusive [employer]pod[employer] Technology. ([place]. Patent No. [phone] [phone] B2 [phone] [place] patent [id number] [phone] [id number]). Standardization and correction of the FDG SUV metric via [employer] technology allow for vendor non-specific objective quantitative examination comparison and optimization of the sensitivity and specificity of the FDG PET-CT examination. . [email or web address] Electronically Signed: Kostas Renee DO at 16:36 EDT ,
== END | disposition home or self-care (01) ==
LOC: ONC 07:17
PROVIDERS: PCP Preventive Medicine Occupational Medicine; Referring Provider Nurse Practitioner Acute Care; Visit Provider Nurse Practitioner Acute Care
DX: R91.8 Other nonspecific abnormal finding of lung field (principal); J44.9 Chronic obstructive pulmonary disease, unspecified; R07.9 Chest pain, unspecified
CPT/HCPCS: 78815; A9552

== ENCOUNTER → 2024-02-01 | Outpatient (CLI) | payer MEDICARE, SELFPAY ==
[2024-02-01 09:39] LABS: Platelet Count 288 K/mm3 (150-450)
[2024-02-01 10:06] LABS: International Normalized Ratio 1.2; Prothrombin Time (Protime)PT. 14.7 SECONDS (11.7-14.9)
== END | disposition home or self-care (01) ==
LOC: LAB 08:57
PROVIDERS: PCP Preventive Medicine Occupational Medicine; Referring Provider Nurse Practitioner Acute Care; Visit Provider Nurse Practitioner Acute Care
DX: I48.91 Unspecified atrial fibrillation (principal); R06.00 Dyspnea, unspecified
CPT/HCPCS: 36415; 85049; 85610; 85730

== ENCOUNTER 2024-02-20 10:30 | Outpatient (RCR) | payer MEDICARE, SELFPAY ==
[2024-01-23 00:57] VITALS: BP 112/62; PULSE 98; RESP 18; TEMP 36.6; BMI 51.2
[2024-01-23 10:44] VITALS: BP 127/74; PULSE 88; TEMP 36.5; BMI 51.2
--- NOTE | 2024-01-23 12:27 | PCM.WC.PN ---
History of Present Illness Date of Service: 01/23/24 Chief Complaint: Right foot and ankle wounds History of Wound: Nonhealing right foot and ankle wounds Subjective Subjective Mr. Shi is a 73-year-old diabetic male presented wound care center today for follow-up and evaluation of right foot and ankle wounds. Patient has been doing home dressing changes and states that he notices improvement with his wound depth and size. Patient does state he has been having some itching to the proximal arm and states he does suffer from psoriasis. He did have some stress over the weekend and believes it was from that. He also says that his [id number] stresses him out so it could also be from that. He admits that his diabetes is under control. He has finished all his antibiotics. He presents today for evaluation of his culture results. He denies trauma. Denies constitutional symptoms. No other pedal complaints at this time. Objective Data Objective Data Vital Signs: Vital Signs Temp Pulse Resp BP 97.7 F L 88 18 127/74 H 01/23/24 10:44 01/23/24 10:44 01/23/24 00:57 01/23/24 10:44 Weight: 159.665 kg Body Mass Index (BMI) 51.2 Physical Exam Narrative Vascular: DP and PT pulses are palpable bilateral. Nonpitting edema appreciated to the right lower extremity. Skin temperature gradient warm to warm from proximal ankle to distal digits with no focal increase. Skin is well-hydrated and supple. Neurological: Light touch intact. Protective sensation is diminished to the bilateral lower extremity. Dermatological: 2 full-thickness ulcerations to the foot and ankle. Right foot ulceration measures 0.8 x 0.8 x 0.1 cm. The right ankle ulceration measures 2.8 x 0.9 x 0.1 cm. Both wound base are granular in nature with no sign of infection. There is blanchable erythema appreciated to the right foot wound with no proximal streaking. No probe to bone. No malodor. Webspaces 1-4 are clean dry and intact. Excision debridement down to and including subcutaneous tissue of the right foot wound with a number 3 mm dermal curette without incident. Predebridement measurement is 0.7 x 0.7 x 0.1 cm. Postdebridement measurement is 0.8 x 0.8 x 0.1 cm. Excision debridement down to and including subcutaneous tissue of the right ankle wound with a number 3 mm dermal curette without incident. Predebridement measurement is 2.7 x 0.8 x 0.1 cm. Postdebridement measurement is 2.8 x 0.9 x 0.1 cm. Musculoskeletal: Muscle strength is 5 and 5 in all quadrants bilateral. No pain on palpation to the full-thickness ulceration. No pain with calf pression. Debridement Note Debridement Note Debridement Free Text: Excision debridement down to and including subcutaneous tissue of the right foot wound with a number 3 mm dermal curette without incident. Predebridement measurement is 0.7 x 0.7 x 0.1 cm. Postdebridement measurement is 0.8 x 0.8 x 0.1 cm. Excision debridement down to and including subcutaneous tissue of the right ankle wound with a number 3 mm dermal curette without incident. Predebridement measurement is 2.7 x 0.8 x 0.1 cm. Postdebridement measurement is 2.8 x 0.9 x 0.1 cm. Post-Debridement Measurements and Additional Note: Post-Debridement Measurements/Treatment - Nurse 1 - General Ulcer Assessment Start: 01/23/24 10:44 Freq: Status: Active Protocol: [email or web address] Activity Type Activity Date Activity User E-sign Co-sign Detail Recorded Client Recorded Date Recorded By Document 01/23/24 10:44 Desktop 01/23/24 10:51 DS 01/23/24 10:44 - Today's Visit Information Type of service Follow-up Visit (Physician/MANAGER SALT ) Arrival Mode Ambulatory Safety Precautions Fall Prevention Height and Weight Body Mass Index (BMI) 51.2 BMI Classification Obese Vital Signs Temperature (97.8 F-99.1 F) 97.7 F L Temperature Source Temporal Pulse Rate (60-100) 88 Pulse Location Monitor Blood Pressure (90/60-120/80) 127/74 H Blood Pressure Mean (mm Hg) 91 Source Monitor Position Sitting Blood Pressure Location Left Arm History Since Last Visit- (Skip if this is Patient's initial visit) Have you changed medications since your No last visit? Any new allergies or adverse reactions No Had a fall/change in ADL's that may No increase risk of falls Signs or symptoms of abuse and/or No neglect since last visit Have you been in the hospital since your No last visit? Left Footwear Regular Shoe Right Footwear Regular Shoe Pain Scale: 0-10 Numeric Is Patient Pain Free? Yes WC - Nurse 1 - General Ulcer Measurement Start: 01/23/24 10:44 Freq: Status: Active Protocol: Activity Type Activity Date Activity User E-sign Co-sign Detail Recorded Client Recorded Date Recorded By Document 01/23/24 10:44 DS Desktop 01/23/24 10:51 DS 01/23/24 10:44 Wound Center Nurse 1 #2 RT DORSAL FT -Current Size (cm) - Length 0.8 -Current Size (cm) - Width 0.9 -Current Size (cm) - Depth 0.1 -Total Square Cm 0.72 -Photo Taken No -Tunneling No -Undermining/Tunneling No -Granulation Amt Medium (34-66%) -Granulation Quality Red -Slough/Fibrin Yes -Necrosis Amt Small (1-33%) -Necrotic Tissue Type Adherent Slough -Texture (Haley-wound Skin Appearance) Assessed -Moisture (Haley-wound Skin Appearance) Assessed -Color (Haley-wound Skin Appearance) Assessed -Temperature (Haley-wound Skin No Abnormality Appearance) (Pt Warm) -Tenderness on Palpation (Haley-wound No Skin Appearance) -Ulcer Cleansing Rinsed/ Irrigated with Saline -Anesthetic Used 5% Lidocaine Gel #1 RT MED ANKLE -Current Size (cm) - Length 1.1 -Current Size (cm) - Width 2.6 -Current Size (cm) - Depth 0.1 -Total Square Cm 2.86 -Photo Taken No -Tunneling No -Undermining/Tunneling No -Circular Undermining No -Exudate Amt Medium -Exudate Type Serosanguineous -Wound Margin Distinct, Outline Attached -Granulation Amt Medium (34-66%) -Granulation Quality Red -Slough/Fibrin Yes -Necrosis Amt Small (1-33%) -Necrotic Tissue Type Adherent Slough -Texture (Haley-wound Skin Appearance) Assessed -Moisture (Haley-wound Skin Appearance) Assessed -Color (Haley-wound Skin Appearance) Assessed -Temperature (Haley-wound Skin No Abnormality Appearance) (Pt Warm) -Tenderness on Palpation (Haley-wound No Skin Appearance) -Ulcer Cleansing Rinsed/ Irrigated with Saline -Anesthetic Used 5% Lidocaine Gel MICHELLE - Nurse 2 - General Ulcer CM Notes Start: 01/23/24 10:44 Freq: Status: Active Protocol: Activity Type Activity Date Activity User E-sign Co-sign Detail Recorded Client Recorded Date Recorded By Document 01/23/24 10:59 Laptop 01/23/24 11:04 01/23/24 10:59 Wound Center Nurse 2 #2 RT DORSAL FT -Time 11:02 -Correct Patient Yes -Correct Side, Site, Position Yes -Correct Procedure Yes -Procedure Performed Yes -Type of Procedure Debridement -Clinical Debridement Subcutaneous -Tissue Removed Subcutaneous -Post Debridement (cm) - Length 0.8 -Post Debridement (cm) - Width 0.8 -Post Debridement (cm) - Depth 0.1 -Total Square (Post) (cm) 0.64 -Area of Debridement (cm) - Length 0.8 -Area of Debridement (cm) - Width 0.8 -Total Square (Area) (cm) 0.64 -Tunneling No -Undermining/Tunneling No -Circular Undermining No -Wound/Ulcer Outcome Not Healed -Ulcer Cleansing Rinsed/ Irrigated with Saline -Foul Odor after Cleansing No -Bioengineered Tissue No -Bleeding Controlled with Pressure -Treatment Response Procedure Tolerated Well -Offloading No -Debridement - Subq, 1st 20sq cm Yes #1 RT MED ANKLE -Time 11:03 -Correct Patient Yes -Correct Side, Site, Position Yes -Correct Procedure Yes -Procedure Performed Yes -Type of Procedure Debridement -Clinical Debridement Subcutaneous -Tissue Removed Subcutaneous -Post Debridement (cm) - Length 2.8 -Post Debridement (cm) - Width 0.9 -Post Debridement (cm) - Depth 0.1 -Total Square (Post) (cm) 2.52 -Area of Debridement (cm) - Length 2.8 -Area of Debridement (cm) - Width 0.9 -Total Square (Area) (cm) 2.52 -Tunneling No -Undermining/Tunneling No -Circular Undermining No -Wound/Ulcer Outcome Not Healed -Ulcer Cleansing Rinsed/ Irrigated with Saline -Foul Odor after Cleansing No -Bioengineered Tissue No -Bleeding Controlled with Pressure -Treatment Response Procedure Tolerated Well -Offloading No -Debridement - Subq, 1st 20sq cm No Pain Scale: 0-10 Numeric Is Patient Pain Free? Yes WC - Nurse 3 - General Ulcer D/C NN Start: 01/23/24 10:44 Freq: Status: Active Protocol: Activity Type Activity Date Activity User E-sign Co-sign Detail Recorded Client Recorded Date Recorded By Document 01/23/24 11:07 KW Desktop 01/23/24 11:08 KW 01/23/24 11:07 Wound Care Center Nurse 3 #2 RT DORSAL FT -Primary Dressing Applied Promogran Rosa M Matter -Primary Dressing Covered/Secured with Dry Gauze & Roll Gauze, Secured with Tape -Promogran Rosa M Matter 1 #1 RT MED ANKLE -Primary Dressing Covered/Secured with Dry Gauze Left -Tubular Bandage Single Layer -Size of Tubigrip Used Size F -Size F ($) 1 Right -Tubular Bandage Single Layer -Size of Tubigrip Used Size F -Size F ($) 1 Pain Scale: 0-10 Numeric Is Patient Pain Free? Yes WC - Visit Discharge Discharge Condition Stable Ambulatory Status Ambulatory Transportation Private Auto Medication Reconcilliation completed & No provided to patient/care provider Clinical Summary of Care Provided Yes Assessment/Plan Assessment/Plan (1) Non-pressure chronic ulcer of other part of right foot with fat layer exposed: CODE(S): L97.512 - Non-pressure chronic ulcer of other part of right foot with fat layer exposed PLAN: Patient was examined and evaluated. All findings were discussed with the patient. All questions were answered to the patient's satisfaction. Excision debridement down to and including subcutaneous tissue of the right foot wound with a number 3 mm dermal curette without incident. Predebridement measurement is 0.7 x 0.7 x 0.1 cm. Postdebridement measurement is 0.8 x 0.8 x 0.1 cm. Excision debridement down to and including subcutaneous tissue of the right ankle wound with a number 3 mm dermal curette without incident. Predebridement measurement is 2.7 x 0.8 x 0.1 cm. Postdebridement measurement is 2.8 x 0.9 x 0.1 cm. Right lower extremities were cleaned and patted dry. The ulceration was dressed with Rosa M dry sterile dressing and single-layer Tubigrip. We will begin authorization for wound care supplies so the patient may change his dressing daily with Rosa M, 4 x 4's Curlex wrap and Tubigrip. Educated the patient to apply cortisone 10 to his right upper extremity to help relieve him from pruritus. He was understanding of this. Educated patient to continue strict blood sugar control. Patient will follow-up with vascular surgery on 01/28/2024. Patient's cultures show evidence of Staph aureus growth which he has already completed Keflex so the patient will just be monitored and not have his oral antibiotics renewed. Follow-up at the wound care center with Dr. Shahid in 1 week. (2) Non-pressure chronic ulcer of right ankle with fat layer exposed: CODE(S): L97.312 - Non-pressure chronic ulcer of right ankle with fat layer exposed (3) Other specified peripheral vascular diseases: CODE(S): I73.89 - Other specified peripheral vascular diseases
--- NOTE | 2024-01-23 12:35 | PCM.WC.HP ---
History of Present Illness Date of Service: 01/23/24 Chief Complaint: Follow-up dehisced surgical back wound History of Wound: 73-year-old white male who had fusion done of the lumbar and October 28 of this year. On January 14 he had an I&D and basically they reopened his whole back and left it open and applied a wound VAC. He is here for follow-up on the wound VAC and for continued care. Suture line and fascia are of visible will cut some of the slough and extra out today with a 15 blade scissors and forceps. Cultures had been obtained through Dr. Stoner and patient is already on antibiotic therapy and will continue until he is finished. Noted that there is some undermining on the right lateral side of the wound. From -. There is concern for the foam keep sticking in the wound and causing severe pain and patient finds it unbearable. Home health care is coming in once a week and changing the wound VAC. I suggested we change to white foam for the undermining and most of the open area and then cover it with black foam. We will also increase compression to 150 mmHg. PFSH Medical History COPD (chronic obstructive pulmonary disease) Diabetes Former smoker Home Medications albuterol sulfate 2.5 mg/3 mL (0.083 %) solution for nebulization 2.5 mg inhalation Q6H PRN 05/02/18 [History Last Taken Unknown] aspirin 81 mg tablet,delayed release 81 mg PO QDAY 05/02/18 [History Last Taken Unknown] citalopram 40 mg tablet 20 mg PO QDAY 05/02/18 [History Last Taken Unknown] furosemide 40 mg tablet 40 mg PO BID 05/02/18 [History Last Taken Unknown] metformin 1,000 mg tablet 1,000 mg PO ONCE 05/02/18 [History Last Taken Unknown] metoprolol tartrate 25 mg tablet 25 mg PO ONCE 05/02/18 [History Last Taken Unknown] simvastatin 80 mg tablet 80 mg PO ONCE 05/02/18 [History Last Taken Unknown] insulin human U-100 NPH-regulr 70-30 mix 100 unit/mL subcutaneous susp (Novolin 70/30 U-100 Insulin) See Rx Instructions subcut BID 08/07/18 [History Last Taken Unknown] albuterol sulfate 90 mcg/actuation aerosol inhaler (Ventolin HFA) 2 puff inhalation Q4H PRN shortness of breath or wheezing #18 grams 02/05/19 [Rx Last Taken Unknown] losartan 50 mg tablet 50 mg PO DAILY 10/28/20 [History Last Taken Unknown] terbinafine HCl 250 mg tablet 250 mg PO DAILY 02/14/21 [History Last Taken Unknown] Symbicort 80 mcg-4.5 mcg/actuation HFA aerosol inhaler (budesonide-formoterol) 2 inh inhalation BID #10.2 grams 03/13/22 [Rx Last Taken Unknown] tiotropium bromide 18 mcg capsule with inhalation device (Spiriva with HandiHaler) 1 cap inhalation QDAY #180 inhalations 04/30/23 [Rx Last Taken Unknown] semaglutide 1 mg/dose (4 mg/3 mL) subcutaneous pen injector (Ozempic) mg subcut QWEEK 11/22/23 [History Last Taken Unknown] cephalexin 500 mg capsule 500 mg PO 4X/DAY 01/18/24 [History Last Taken Unknown] Allergy/AdvReac Type Severity Reaction Status Date / Time No Known Allergies Allergy Verified 01/18/24 07:45 Family History Father Heart disease Diabetes Brother Cancer Throat Grandmother Breast cancer Surgical History S/P CABG x 3 Social History Smoking Status: Former smoker pack-years: 55 Tobacco: How many years used: 35 how long ago did patient quit smokin second hand exposure: Yes alcohol intake: current alcohol intake frequency: holidays/special occasions only Alcohol type: beer substance use type: does not use caffeine: Yes what type of physical activity do you participate in: none ROS Constitutional Constitutional: Reports systems reviewed and no addt'l complaints, except as documented Eyes Eyes: Reports systems reviewed and no addt'l complaints, except as documented ENT HEENT: Reports systems reviewed and no addt'l complaints, except as documented Cardiovascular Cardiovascular: Reports systems reviewed and no addt'l complaints, except as documented Respiratory/Chest Respiratory/Chest: Reports systems reviewed and no addt'l complaints, except as documented Gastrointestinal Gastrointestinal: Reports systems reviewed and no addt'l complaints, except as documented Genitourinary Genitourinary: Reports systems reviewed and no addt'l complaints, except as documented Musculoskeletal Musculoskeletal: Reports systems reviewed and no addt'l complaints, except as documented Integumentary Integumentary: Reports other Details: Lumbar dehisced surgical wound down to sutures and ligaments. Came with wound VAC Neurologic Neurologic: Reports systems reviewed and no addt'l complaints, except as documented Psychiatric Psychiatric: Reports systems reviewed and no addt'l complaints, except as documented Endocrine Endocrinology: Reports systems reviewed and no addt'l complaints, except as documented Hematologic/Lymphatic Hematologic/Lymphatic: Reports systems reviewed and no addt'l complaints, except as documented Allergic/Immunologic Allergic/Immunologic: Reports systems reviewed and no addt'l complaints, except as documented Vital Signs Vital Signs Vital Signs: 01/23/24 10:44 01/23/24 00:57 Temperature 97.7 F L 97.9 F Temperature Source Temporal Pulse Rate 88 98 Respiratory Rate 18 Blood Pressure 127/74 H 112/62 Blood Pressure Mean 91 78 Blood Pressure Source Monitor Monitor Blood Pressure Position Sitting Blood Pressure Location Left Arm Left Forearm Weight Weight: 352 lb Body Mass Index (BMI) 51.2 Physical Exam Const oriented x3 General Appearance: cooperative HEENT normocephalic Eyes PERRL Neck full ROM Resp Effort and Inspection: able to speak in complete sentences Auscultation: clear to auscultation bilaterally Cardio regular rate and regular rhythm Palpation: normal PMI Rate: regular rate Rhythm: regular rhythm Back/Spine Cervical Spine: cervical ROM normal Thoracic Spine / Upper Back: normal to inspection Lumbar Spine / Lower Back: pain with ROM; Negative for normal to inspection Extremity normal to inspection General Extremity: normal exam except as noted Skin Skin Narrative: Open dehisced surgical wound of the lower lumbar sutures intact visible with fascia Neuro oriented x3 Psych Appearance: grossly normal Speech: normal speech Thought Content: normal thought content Judgement: judgement good Debridement Note Debridement Note Wound debrided: Dehisced surgical wound of lumbar Type of Debridement: Excisional debridement Anesthesia Used: 4% Lidocaine Solution and 5% Lidocaine Gel Depth: to muscle Percentage of wound debrided: 100 Instrument Used: 7mm curette, #15 blade, Forceps and - (Scissors) Tissue Removed: Devitalized tissue fibrin Severity: Fat Layer Exposed Amount of bleeding with debridement: Mild Bleeding Controlled with: Compression and gauze Patient tolerated procedure: Patient tolerated procedure well Post-Debridement Measurements and Additional Note: Post-Debridement Measurements/Treatment MICHELLE - Nurse 1 - General Ulcer Assessment Start: 01/23/24 10:44 Freq: Status: Active Protocol: VAHID Activity Type Activity Date Activity User E-sign Co-sign Detail Recorded Client Recorded Date Recorded By Document 01/23/24 10:44 CHRISTINE Desktop 01/23/24 10:51 DS 01/23/24 10:44 WC - Today's Visit Information Type of service Follow-up Visit (Physician/LIVING SUPERVISOR ) Arrival Mode Ambulatory Safety Precautions Fall Prevention Height and Weight Body Mass Index (BMI) 51.2 BMI Classification Obese Vital Signs Temperature (97.8 F-99.1 F) 97.7 F L Temperature Source Temporal Pulse Rate (60-100) 88 Pulse Location Monitor Blood Pressure (90/60-120/80) 127/74 H Blood Pressure Mean 91 Source Monitor Position Sitting Blood Pressure Location Left Arm History Since Last Visit- (Skip if this is Patient's initial visit) Have you changed medications since your No last visit? Any new allergies or adverse reactions No Had a fall/change in ADL's that may No increase risk of falls Signs or symptoms of abuse and/or No neglect since last visit Have you been in the hospital since your No last visit? Left Footwear Regular Shoe Right Footwear Regular Shoe Pain Scale: 0-10 Numeric Is Patient Pain Free? Yes MICHELLE - Nurse 1 - General Ulcer Measurement Start: 01/23/24 10:44 Freq: Status: Active Protocol: Activity Type Activity Date Activity User E-sign Co-sign Detail Recorded Client Recorded Date Recorded By Document 01/23/24 10:44 CHRISTINE Desktop 01/23/24 10:51 DS 01/23/24 10:44 Wound Center Nurse 1 #2 RT DORSAL FT -Current Size (cm) - Length 0.8 -Current Size (cm) - Width 0.9 -Current Size (cm) - Depth 0.1 -Total Square Cm 0.72 -Photo Taken No -Tunneling No -Undermining/Tunneling No -Granulation Amt Medium (34-66%) -Granulation Quality Red -Slough/Fibrin Yes -Necrosis Amt Small (1-33%) -Necrotic Tissue Type Adherent Slough -Texture (Haley-wound Skin Appearance) Assessed -Moisture (Haley-wound Skin Appearance) Assessed -Color (Haley-wound Skin Appearance) Assessed -Temperature (Haley-wound Skin No Abnormality Appearance) (Pt Warm) -Tenderness on Palpation (Haley-wound No Skin Appearance) -Ulcer Cleansing Rinsed/ Irrigated with Saline -Anesthetic Used 5% Lidocaine Gel #1 RT MED ANKLE -Current Size (cm) - Length 1.1 -Current Size (cm) - Width 2.6 -Current Size (cm) - Depth 0.1 -Total Square Cm 2.86 -Photo Taken No -Tunneling No -Undermining/Tunneling No -Circular Undermining No -Exudate Amt Medium -Exudate Type Serosanguineous -Wound Margin Distinct, Outline Attached -Granulation Amt Medium (34-66%) -Granulation Quality Red -Slough/Fibrin Yes -Necrosis Amt Small (1-33%) -Necrotic Tissue Type Adherent Slough -Texture (Haley-wound Skin Appearance) Assessed -Moisture (Haley-wound Skin Appearance) Assessed -Color (Haley-wound Skin Appearance) Assessed -Temperature (Haley-wound Skin No Abnormality Appearance) (Pt Warm) -Tenderness on Palpation (Haley-wound No Skin Appearance) -Ulcer Cleansing Rinsed/ Irrigated with Saline -Anesthetic Used 5% Lidocaine Gel WC - Nurse 2 - General Ulcer CM Notes Start: 01/23/24 10:44 Freq: Status: Active Protocol: Activity Type Activity Date Activity User E-sign Co-sign Detail Recorded Client Recorded Date Recorded By Document 01/23/24 10:59 Laptop 01/23/24 11:04 01/23/24 10:59 Wound Center Nurse 2 #2 RT DORSAL FT -Time 11:02 -Correct Patient Yes -Correct Side, Site, Position Yes -Correct Procedure Yes -Procedure Performed Yes -Type of Procedure Debridement -Clinical Debridement Subcutaneous -Tissue Removed Subcutaneous -Post Debridement (cm) - Length 0.8 -Post Debridement (cm) - Width 0.8 -Post Debridement (cm) - Depth 0.1 -Total Square (Post) (cm) 0.64 -Area of Debridement (cm) - Length 0.8 -Area of Debridement (cm) - Width 0.8 -Total Square (Area) (cm) 0.64 -Tunneling No -Undermining/Tunneling No -Circular Undermining No -Wound/Ulcer Outcome Not Healed -Ulcer Cleansing Rinsed/ Irrigated with Saline -Foul Odor after Cleansing No -Bioengineered Tissue No -Bleeding Controlled with Pressure -Treatment Response Procedure Tolerated Well -Offloading No -Debridement - Subq, 1st 20sq cm Yes #1 RT MED ANKLE -Time 11:03 -Correct Patient Yes -Correct Side, Site, Position Yes -Correct Procedure Yes -Procedure Performed Yes -Type of Procedure Debridement -Clinical Debridement Subcutaneous -Tissue Removed Subcutaneous -Post Debridement (cm) - Length 2.8 -Post Debridement (cm) - Width 0.9 -Post Debridement (cm) - Depth 0.1 -Total Square (Post) (cm) 2.52 -Area of Debridement (cm) - Length 2.8 -Area of Debridement (cm) - Width 0.9 -Total Square (Area) (cm) 2.52 -Tunneling No -Undermining/Tunneling No -Circular Undermining No -Wound/Ulcer Outcome Not Healed -Ulcer Cleansing Rinsed/ Irrigated with Saline -Foul Odor after Cleansing No -Bioengineered Tissue No -Bleeding Controlled with Pressure -Treatment Response Procedure Tolerated Well -Offloading No -Debridement - Subq, 1st 20sq cm No Pain Scale: 0-10 Numeric Is Patient Pain Free? Yes - Nurse 3 - General Ulcer D/C NN Start: 01/23/24 10:44 Freq: Status: Active Protocol: Activity Type Activity Date Activity User E-sign Co-sign Detail Recorded Client Recorded Date Recorded By Document 01/23/24 11:07 KW Desktop 01/23/24 11:08 KW 01/23/24 11:07 Wound Care Center Nurse 3 #2 RT DORSAL FT -Primary Dressing Applied Promogran Rosa M Matter -Primary Dressing Covered/Secured with Dry Gauze & Roll Gauze, Secured with Tape -Promogran Rosa M Matter 1 #1 RT MED ANKLE -Primary Dressing Covered/Secured with Dry Gauze Left -Tubular Bandage Single Layer -Size of Tubigrip Used Size F -Size F ($) 1 Right -Tubular Bandage Single Layer -Size of Tubigrip Used Size F -Size F ($) 1 Pain Scale: 0-10 Numeric Is Patient Pain Free? Yes WC - Visit Discharge Discharge Condition Stable Ambulatory Status Ambulatory Transportation Private Auto Medication Reconcilliation completed & No provided to patient/care provider Clinical Summary of Care Provided Yes Assessment/Plan Assessment/Plan (1) Uncontrolled type 2 diabetes mellitus with hyperglycemia: CODE(S): E11.65 - Type 2 diabetes mellitus with hyperglycemia PLAN: Discussed at length diabetic diet foods he should eat and foods he should stay away from. Recently just started Trulicity at 3 mg injection\ (2) Dehiscence of surgical wound: CODE(S): T81.31XA - Disruption of external operation (surgical) wound, not elsewhere classified, initial encounter QUALIFIERS: Encounter type: initial encounter Qualified Code(s): T81.31XA - Disruption of external operation (surgical) wound, not elsewhere classified, initial encounter PLAN: Reapply wound VAC with white foam undermining and most of wound and then black foam on top Increase compression to 150 mg mercury Follow-up in 1 week (3) Nonhealing surgical wound: CODE(S): T81.89XA - Other complications of procedures, not elsewhere classified, initial encounter QUALIFIERS: Encounter type: initial encounter Qualified Code(s): T81.89XA - Other complications of procedures, not elsewhere classified, initial encounter (4) Pain associated with wound: CODE(S): T14.8XXA - Other injury of unspecified body region, initial encounter; R52 - Pain, unspecified PLAN: Take tramadol 50 mg 2 every 6 hours as needed for pain May also take Tylenol 500 mg along with the tramadol May restart taking his gabapentin for additional pain management if necessary at 200 mg 3 times a day The Vicodin received from surgeon try only using at bedtime for sleep May continue antibiotic therapy till it is done
--- NOTE | 2024-01-28 12:42 | VDLE_ITS ---
Reason For Study: BLE Edema RIGHT LEFT CFV is compressible, spontaneous, phasic, CFV is compressible, spontaneous, phasic, competent and demonstrates normal competent, and demonstrates normal augmentation. augmentation. FV is compressible, spontaneous, phasic, FV is compressible, spontaneous, phasic, competent and demonstrates normal competent and demonstrates normal augmentation. augmentation. POP V is compressible, spontaneous, phasic, POP V is compressible, spontaneous, phasic, competent and demonstrates normal competent and demonstrates normal augmentation. augmentation. T/P Trunk is compressible. T/P Trunk is compressible. PTV is compressible. PTV is compressible. RT PerV is compressible. LT PerV is compressible. SFJ is INCOMPETENT and measures 0.92 cm. SFJ is INCOMPETENT and measures 0.87 cm. GSV proximal thigh measures 0.90 x 0.93 cm. GSV proximal thigh measures 0.78 x 0.80 cm. GSV at knee measures 0.54 x 0.54 cm. GSV at knee measures 0.64 x 0.65 cm. GSV above knee is INCOMPETENT for greater GSV above knee is competent. than 0.5 seconds. GSV below knee is INCOMPETENT for greater GSV below knee is competent. than 0.5 seconds. ASV mid calf is INCOMPETENT for greater than SSV proximal calf is competent and measures 0.5 seconds and measures 0.38 x 0.40 cm. 0.21 x 0.23 cm. SSV proximal calf is competent and measures 0.41 x 0.40 cm. Procedure Exam performed in department. This is a venous duplex using B-mode, color flow and spectral Doppler. The study was technically difficult. Patient was scanned in reverse Trendelenburg position during reflux assessment. VL/Venous Duplex US - Mani Extrem Interpretation Summary Deep veins of the lower extremities are bilaterally patent and compressible seg mentally. There is no evidence of deep vein thrombosis on either side. Valvular competence appears in tact within the proximal deep venous systems bilaterally. The great saphenous veins appear bila terally patent and compressible segmentally. Sapheno-femoral junctions are bilaterally incompetent . The right great saphenous vein appears incompetent above the knee. The right great saphenous ve in appears competent below the knee. The left great saphenous vein appears competent above the knee. The left great saphenous vein appears incompetent below the knee. Small saphenous veins are pa tent and competent bilaterally. The accessory saphenous vein in the right mid-calf is incompetent. Ordering Physician: Kyle Shahid Referring Physician: Adalid Tran Performed By: Jose Chester RVT
--- NOTE | 2024-01-28 12:42 | ART_ITS ---
Reason For Study: BLE Ulcers Procedure A bilateral lower extremity continuous wave Doppler with analog waveform analysis,segmental pressures,and ankle brachial indexes without exercise. Left Segmental Pressures Left brachial= 121mmHg. Left posterior tibial artery = 151mmHg. Left dorsalis pedis artery = 140mmHg. Left digit = 58 mmHg. The left posterior tibial artery waveforms are biphasic. The left dorsalis pedis waveforms are triphasic. Right Segmental Pressures Right brachial= 134mmHg. Right posterior tibial artery = 145mmHg. Right dorsalis pedis artery = 124mmHg. Right digit = 41 mmHg. The right posterior tibial artery waveforms are biphasic. The right dorsalis pedis waveforms are triphasic. Indices The right ankle brachial index by the posterior tibial artery is 1.08. The right ankle brachial index by the dorsalis pedis is 0.93. The right digital-brachial index is 0.31. The left ankle brachial index by the posterior tibial artery is 1.13. The left ankle brachial index by the dorsalis pedis is 1.04. The left digital-brachial index is 0.43. VL/Lower Ext Art Exam w/o Exercis Interpretation Summary Biphasic and triphasic Doppler waveforms are noted at ankle level bilaterally. Pulse-volume recordings appear diminished at digital level on the right, but satisfactory at all other levels bilaterally. Resting ankle-brachial indices are normal bilaterally. The right d igital-brachial index is moderately to severely diminished. The left digital-brachial index is modera tely diminished. Arterial flow appears normal at ankle level bilaterally. There is evidence of m [id number] arterial occlusive disease at digital level on the right. There is evidence of moderate arterial occlusive disease at digital level on the left. Ordering Physician: Kyle Shahid Referring Physician: Adalid Cross Performed By: Jose Chester, RVT
[2024-01-30 10:13] VITALS: BP 113/57; PULSE 107; RESP 18; TEMP 36.3; BMI 51.2
--- NOTE | 2024-01-30 11:38 | PN.PCM_ITS ---
History of Present Illness Date of Service: 01/30/24 Chief Complaint: Follow-up dehisced surgical back wound History of Wound: 73-year-old white male who had fusion done of the lumbar and October 28 of this year. On January 14 he had an I&D and basically they reopened his whole back and left it open and applied a wound VAC. He is here for follow- up on the wound VAC and for continued care. Suture line and fascia are of visible will cut some of the slough and extra out today with a 15 blade scissors and forceps. Cultures had been obtained through Dr. Stoner and patient is already on antibiotic therapy and will continue until he is finished. Noted that there is some undermining on the right lateral side of the wound. From -. There is concern for the foam keep sticking in the wound and causing severe pain and patient finds it unbearable. Home health care is coming in once a week and pam nging the wound VAC. I suggested we change to white foam for the undermining and most of the open area and then cover it with black foam. We will also increase compression to 150 mmHg. Subjective Subjective Mr. Shi is a 73-year-old male who is diabetic presenting to wound care center today for follow-up evaluation of 2 full-thickness ulcerations to the foot and ankle of the right foot. Patient states his itching is better. He has been doing home dressing changes as discussed. He denies any trauma. Denies constitutional symptoms. Other pedal complaints at this time. Objective Data Objective Data Vital Signs: Vital Signs Temp Pulse Resp BP O2 Del Method 97.4 F L 107 H 18 113/57 L Room Air 01/30/24 10:13 01/30/24 10:13 01/30/24 10:13 01/30/24 10:13 01/30/24 10:13 Oxygen Delivery Method Room Air Weight: 159.665 kg Body Mass Index (BMI) 51.2 Physical Exam Narrative Vascular: DP and PT pulses are palpable bilateral. Nonpitting edema appreciated to the right lower extremity. Skin temperature gradient warm to warm from proximal ankle to distal digits with no focal increase. Skin is well-hydrated and supple. Neurological: Light touch intact. Protective sensation is diminished to the bilateral lower extremity. Dermatological: 2 full-thickness ulcerations to the foot and ankle. Right foot ulceration measures 0.5 x 0.4 x 0.1 cm. The right ankle ulceration measures 1.9 x 0.7 x 0.1 cm. Both wound base are granular in nature with no sign of infection. There is blanchable erythema appreciated to the right foot wound with no proximal streaking. No probe to bone. No malodor. Webspaces 1-4 are clean dry and intact. Excision debridement down to and including subcutaneous tissue of the right foot wound with a number 3 mm dermal curette without incident. Predebridement measurement is 0.4 x 0.3 x 0.1 cm. Postdebridement measurement is 0.5 x 0.4 x 0.1 cm. Excision debridement down to and including subcutaneous tissue of the right ankle wound with a number 3 mm dermal curette without incident. Predebridement measurement is 1.8 x 0.6 x 0.1 cm. Postdebridement measurement is 1.9 x 0.7 x 0.1 cm. Musculoskeletal: Muscle strength is 5 and 5 in all quadrants bilateral. No pain on palpation to the full-thickness ulceration. No pain with calf pression. Debridement Note Debridement Note Debridement Free Text: Excision debridement down to and including subcutaneous tissue of the right foot wound with a number 3 mm dermal curette without incident. Predebridement measurement is 0.4 x 0.3 x 0.1 cm. Postdebridement measurement is 0.5 x 0.4 x 0.1 cm. Excision debridement down to and including subcutaneous tissue of the right ankle wound with a number 3 mm dermal curette without incident. Predebridement measurement is 1.8 x 0.6 x 0.1 cm. Postdebridement measurement is 1.9 x 0.7 x 0.1 cm. Post-Debridement Measurements and Additional Note: Post-Debridement Measurements/Treatment MICHELLE - Nurse 1 - General Ulcer Assessment Start: 01/23/24 10:44 Freq: Status: Active Protocol: VAHID Activity Type Activity Date Activity User E-sign Co-sign Detail Recorded Client Recorded Date Recorded By Document 01/23/24 10:44 DS Desktop 01/23/24 10:51 DS Document 01/30/24 10:13 KW Desktop 01/30/24 10:17 KW 01/23/24 01/30/24 10:44 10:13 MICHELLE - Today's Visit Information Type of service Follow-up Visit Follow-up Visit (Physician/BUSINESS OFFICE TECHNICIAN (Physician/BUSINESS OFFICE TECHNICIAN ) ) Arrival Mode Ambulatory Ambulatory Patient Identification Verified (Name & Yes ) Safety Precautions Fall Prevention Height and Weight Body Mass Index (BMI) 51.2 51.2 BMI Classification Obese Obese Vital Signs Temperature (97.8 F-99.1 F) 97.7 F L 97.4 F L Temperature Source Temporal Temporal Pulse Rate (60-100) 88 107 H Pulse Location Monitor Monitor Respiratory Rate (12-18) 18 Respiratory rate source Observation Oxygen Delivery Method Room Air Blood Pressure (90/60-120/80) 127/74 H 113/57 L Blood Pressure Mean (mm Hg) 91 75 Source Monitor Monitor Position Sitting Semi-Fowlers Blood Pressure Location Left Arm Left Arm History Since Last Visit- (Skip if this is Patient's initial visit) Have you changed medications since your No No last visit? Any new allergies or adverse reactions No No Had a fall/change in ADL's that may No No increase risk of falls Signs or symptoms of abuse and/or No No neglect since last visit Have you been in the hospital since your No No last visit? Has dressing in place as prescribed Yes Has compression in place as prescribed Yes Has offloadiing in place as prescribed N/A Experienced any changes in pain level or No management Left Footwear Regular Shoe Regular Shoe Right Footwear Regular Shoe Regular Shoe Pain Scale: 0-10 Numeric Is Patient Pain Free? Yes Yes WC - Nurse 1 - General Ulcer Measurement Start: 01/23/24 10:44 Freq: Status: Active Protocol: Activity Type Activity Date Activity User E-sign Co-sign Detail Recorded Client Recorded Date Recorded By Document 01/23/24 10:44 DS Desktop 01/23/24 10:51 DS Document 01/30/24 10:13 KW Desktop 01/30/24 10:17 KW 01/23/24 01/30/24 10:44 10:13 Wound Center Nurse 1 #2 RT DORSAL FT -Current Size (cm) - Length 0.8 0.5 -Current Size (cm) - Width 0.9 0.5 -Current Size (cm) - Depth 0.1 0.1 -Total Square Cm 0.72 0.25 -Photo Taken No -Tunneling No -Undermining/Tunneling No -Exudate Amt None Present -Exudate Type Serosanguineous -Wound Margin Distinct, Outline Attached -Granulation Amt Medium (34-66%) Large (67-100%) -Granulation Quality Red [place] -Slough/Fibrin Yes -Necrosis Amt Small (1-33%) -Necrotic Tissue Type Adherent Slough -Texture (Haley-wound Skin Appearance) Assessed Assessed -Moisture (Haley-wound Skin Appearance) Assessed Assessed, Maceration -Color (Haley-wound Skin Appearance) Assessed Assessed -Temperature (Haley-wound Skin No Abnormality No Abnormality Appearance) (Pt Warm) (Pt Warm) -Tenderness on Palpation (Haley-wound No No Skin Appearance) -Ulcer Cleansing Rinsed/ Soap and Water Irrigated with Saline -Anesthetic Used 5% Lidocaine 5% Lidocaine Gel Gel #1 RT MED ANKLE -Current Size (cm) - Length 1.1 0.9 -Current Size (cm) - Width 2.6 2.2 -Current Size (cm) - Depth 0.1 0.1 -Total Square Cm 2.86 1.98 -Photo Taken No -Tunneling No -Undermining/Tunneling No -Circular Undermining No -Exudate Amt Medium Medium -Exudate Type Serosanguineous Serosanguineous -Wound Margin Distinct, Distinct, Outline Outline Attached Attached -Granulation Amt Medium (34-66%) Large (67-100%) -Granulation Quality Red Red -Slough/Fibrin Yes -Necrosis Amt Small (1-33%) -Necrotic Tissue Type Adherent Slough -Texture (Haley-wound Skin Appearance) Assessed Assessed -Moisture (Haley-wound Skin Appearance) Assessed Assessed, Maceration -Color (Haley-wound Skin Appearance) Assessed Assessed -Temperature (Haley-wound Skin No Abnormality No Abnormality Appearance) (Pt Warm) (Pt Warm) -Tenderness on Palpation (Haley-wound No No Skin Appearance) -Ulcer Cleansing Rinsed/ Soap and Water Irrigated with Saline -Anesthetic Used 5% Lidocaine 5% Lidocaine Gel Gel Right Calf (cm) 52 Right Ankle (cm) 29.5 Left Calf (cm) 51 Left Ankle (cm) 28.6 WC - Nurse 2 - General Ulcer CM Notes Start: 01/23/24 10:44 Freq: Status: Active Protocol: Activity Type Activity Date Activity User E-sign Co-sign Detail Recorded Client Recorded Date Recorded By Document 01/23/24 10:59 Laptop 01/23/24 11:04 JF Document 01/30/24 10:29 DS Desktop 01/30/24 10:35 DS 01/23/24 01/30/24 10:59 10:29 Wound Center Nurse 2 #2 RT DORSAL FT -Time 11:02 10:29 -Correct Patient Yes Yes -Correct Side, Site, Position Yes Yes -Correct Procedure Yes Yes -Procedure Performed Yes -Type of Procedure Debridement Debridement -Clinical Debridement Subcutaneous Subcutaneous -Tissue Removed Subcutaneous Subcutaneous -Post Debridement (cm) - Length 0.8 0.5 -Post Debridement (cm) - Width 0.8 0.4 -Post Debridement (cm) - Depth 0.1 0.1 -Total Square (Post) (cm) 0.64 0.20 -Area of Debridement (cm) - Length 0.8 0.5 -Area of Debridement (cm) - Width 0.8 0.4 -Total Square (Area) (cm) 0.64 0.20 -Tunneling No No -Undermining/Tunneling No No -Circular Undermining No No -Wound/Ulcer Outcome Not Healed Not Healed -Ulcer Cleansing Rinsed/ Irrigated with Saline -Foul Odor after Cleansing No -Bioengineered Tissue No -Bleeding Controlled with Pressure Pressure -Treatment Response Procedure Procedure Tolerated Well Tolerated Well -Offloading No No -Debridement - Subq, 1st 20sq cm Yes Yes #1 RT MED ANKLE -Time 11:03 10:31 -Correct Patient Yes Yes -Correct Side, Site, Position Yes Yes -Correct Procedure Yes Yes -Procedure Performed Yes Yes -Type of Procedure Debridement Debridement -Clinical Debridement Subcutaneous Subcutaneous -Tissue Removed Subcutaneous Subcutaneous -Post Debridement (cm) - Length 2.8 1.9 -Post Debridement (cm) - Width 0.9 0.7 -Post Debridement (cm) - Depth 0.1 0.1 -Total Square (Post) (cm) 2.52 1.33 -Area of Debridement (cm) - Length 2.8 1.9 -Area of Debridement (cm) - Width 0.9 0.7 -Total Square (Area) (cm) 2.52 1.33 -Tunneling No No -Undermining/Tunneling No No -Circular Undermining No No -Wound/Ulcer Outcome Not Healed -Ulcer Cleansing Rinsed/ Rinsed/ Irrigated with Irrigated with Saline Saline -Foul Odor after Cleansing No -Bioengineered Tissue No -Bleeding Controlled with Pressure Pressure -Treatment Response Procedure Procedure Tolerated Well Tolerated Well -Offloading No No -Debridement - Subq, 1st 20sq cm No No Pain Scale: 0-10 Numeric Is Patient Pain Free? Yes Yes - Nurse 3 - General Ulcer D/C NN Start: 01/23/24 10:44 Freq: Status: Active Protocol: Activity Type Activity Date Activity User E-sign Co-sign Detail Recorded Client Recorded Date Recorded By Document 01/23/24 11:07 KW Desktop 01/23/24 11:08 KW Document 01/30/24 10:49 Desktop 01/30/24 10:50 GM 01/23/24 01/30/24 11:07 10:49 Wound Care Center Nurse 3 #2 RT DORSAL FT -Ulcer Cleansing Not Cleansed -Primary Dressing Applied Promogran Promogran Yun Matter Yun Matter -Primary Dressing Covered/Secured with Dry Gauze & Dry Gauze,Dry Roll Gauze, Gauze & Roll Secured with Gauze,Secured Tape with Tape -Promogran Yun Matter 1 1 #1 RT MED ANKLE -Ulcer Cleansing Not Cleansed -Foul Odor after Cleansing No -Other Dressing used remainder of yun -Primary Dressing Covered/Secured with Dry Gauze Left -Lotion applied to leg before No compression wrap -Multi-Layered Wrap Application Multi-Layer Comp - Bilat ($ ) -Tubular Bandage Single Layer -Size of Tubigrip Used Size F -Size F ($) 1 Right -Tubular Bandage Single Layer -Size of Tubigrip Used Size F -Size F ($) 1 Pain Scale: 0-10 Numeric Is Patient Pain Free? Yes Yes Teaching: Wound Center compression -Person Taught Patient -Teaching Method Discussion -Response to teaching Verbalize understanding WC - Visit Discharge Discharge Condition Stable Stable Ambulatory Status Ambulatory Ambulatory Transportation Private Auto Private Auto Medication Reconcilliation completed & No provided to patient/care provider Clinical Summary of Care Provided Yes Yes Assessment/Plan Assessment/Plan (1) Non-pressure chronic ulcer of other part of right foot with fat layer exposed: CODE(S): L97.512 - Non-pressure chronic ulcer of other part of right foot with fat layer exposed PLAN: Patient was examined and evaluated. All findings were discussed with the patient. All questions were answered to the patient's satisfaction. Excision debridement down to and including subcutaneous tissue of the right foot wound with a number 3 mm dermal curette without incident. Predebridement measurement is 0.4 x 0.3 x 0.1 cm. Postdebridement measurement is 0.5 x 0.4 x 0.1 cm. Excision debridement down to and including subcutaneous tissue of the right ankle wound with a number 3 mm dermal curette without incident. Predebridement measurement is 1.8 x 0.6 x 0.1 cm. Postdebridement measurement is 1.9 x 0.7 x 0.1 cm. Right extremity were cleaned and patted dry. Ulceration dressed with Yun moist gauze dry sterile dressing and double layer 3M wraps to the bilateral lower extremity. Patient to keep these clean dry and intact. Patient will remove them prior to his follow-up next Sunday so he can shower before clinic. Patient was understanding this. Follow-up at the wound care center with Dr. Shahid in 1 week. (2) Non-pressure chronic ulcer of right ankle with fat layer exposed: CODE(S): L97.312 - Non-pressure chronic ulcer of right ankle with fat layer exposed (3) Type 2 diabetes mellitus with foot ulcer: CODE(S): E11.621 - Type 2 diabetes mellitus with foot ulcer; L97.509 - Non-pressure chronic ulcer of other part of unspecified foot with unspecified severity (4) Other specified peripheral vascular diseases: CODE(S): I73.89 - Other specified peripheral vascular diseases PLAN: The patient's pulse line recordings to the bilateral extremity show evidence of biphasic and triphasic Doppler sounds. The TBI's to the left are 0.43, the TBI's to the right are 0.31. The ABIs to the left are 1.13, and the ABIs to the right are 1.08. The patient shows good blood flow to the bilateral lower extremities with no compromise. The patient's venous study show evidence of compromised vessels and incompetence with evidence of reflux and recommend compression lifelong moving forward. Patient was understanding of this.
[2024-02-06 10:18] VITALS: BP 114/58; PULSE 113; RESP 16; TEMP 36.3; BMI 51.2
--- NOTE | 2024-02-06 11:33 | PCM.WC.PN ---
History of Present Illness Date of Service: 02/06/24 Chief Complaint: Follow-up dehisced surgical back wound History of Wound: 73-year-old white male who had fusion done of the lumbar and October 28 of this year. On January 14 he had an I&D and basically they reopened his whole back and left it open and applied a wound VAC. He is here for follow-up on the wound VAC and for continued care. Suture line and fascia are of visible will cut some of the slough and extra out today with a 15 blade scissors and forceps. Cultures had been obtained through Dr. Stoner and patient is already on antibiotic therapy and will continue until he is finished. Noted that there is some undermining on the right lateral side of the wound. From -. There is concern for the foam keep sticking in the wound and causing severe pain and patient finds it unbearable. Home health care is coming in once a week and changing the wound VAC. I suggested we change to white foam for the undermining and most of the open area and then cover it with black foam. We will also increase compression to 150 mmHg. Subjective Subjective Mr. Shi is a 73-year-old male who is diabetic presenting to wound care center today for follow-up evaluation of 2 full-thickness ulcerations to the foot and ankle of the right foot. Patient states his itching is better. He has been doing home dressing changes as discussed. He denies any trauma. Denies constitutional symptoms. Other pedal complaints at this time. Objective Data Objective Data Vital Signs: Vital Signs Temp Pulse Resp BP O2 Del Method 97.3 F L 113 H 16 114/58 L Room Air 02/06/24 10:18 02/06/24 10:18 02/06/24 10:18 02/06/24 10:18 02/06/24 10:18 Oxygen Delivery Method Room Air Weight: 159.665 kg Body Mass Index (BMI) 51.2 Physical Exam Narrative Vascular: DP and PT pulses are palpable bilateral. Nonpitting edema appreciated to the right lower extremity. Skin temperature gradient warm to warm from proximal ankle to distal digits with no focal increase. Skin is well-hydrated and supple. Neurological: Light touch intact. Protective sensation is diminished to the bilateral lower extremity. Dermatological: 2 full-thickness ulcerations to the foot and ankle. Right foot ulceration is now healed. The right ankle ulceration measures 0.7 x 1.5 x 0.1 cm. Wound base are granular in nature with no sign of infection. There is blanchable erythema appreciated to the right foot wound with no proximal streaking. No probe to bone. No malodor. Webspaces 1-4 are clean dry and intact. Excision debridement down to and including subcutaneous tissue of the right ankle wound with a number 3 mm dermal curette without incident. Predebridement measurement is 0.1 x 0.1 x 0.1 cm. Postdebridement measurement is 0.7 x 1.5 x 0.1 cm. Musculoskeletal: Muscle strength is 5 and 5 in all quadrants bilateral. No pain on palpation to the full-thickness ulceration. No pain with calf pression. Debridement Note Debridement Note Debridement Free Text: Excision debridement down to and including subcutaneous tissue of the right ankle wound with a number 3 mm dermal curette without incident. Predebridement measurement is 0.1 x 0.1 x 0.1 cm. Postdebridement measurement is 0.7 x 1.5 x 0.1 cm Post-Debridement Measurements and Additional Note: Post-Debridement Measurements/Treatment - Nurse 1 - General Ulcer Assessment Start: 01/23/24 10:44 Freq: Status: Active Protocol: VAHID Activity Type Activity Date Activity User E-sign Co-sign Detail Recorded Client Recorded Date Recorded By Document 01/23/24 10:44 DS Desktop 01/23/24 10:51 DS Document 01/30/24 10:13 KW Desktop 01/30/24 10:17 KW Document 02/06/24 10:18 DS [id number] 02/06/24 10:24 DS 01/23/24 01/30/24 02/06/24 10:44 10:13 10:18 - Today's Visit Information Type of service Follow-up Visit Follow-up Visit Follow-up Visit (Physician/PRODUCTION SUPERINTENDENT HYDRO (Physician/PRODUCTION SUPERINTENDENT HYDRO (Physician/PRODUCTION SUPERINTENDENT HYDRO ) ) ) Arrival Mode Ambulatory Ambulatory Ambulatory Patient Identification Verified (Name & Yes ) Patient Requires Transmission-Based No Precautions Safety Precautions Fall Prevention Height and Weight Body Mass Index (BMI) 51.2 51.2 51.2 BMI Classification Obese Obese Obese Vital Signs Temperature (97.8 F-99.1 F) 97.7 F L 97.4 F L 97.3 F L Temperature Source Temporal Temporal Temporal Pulse Rate (60-100) 88 107 H 113 H Pulse Location Monitor Monitor Monitor Respiratory Rate (12-18) 18 16 Respiratory rate source Observation Observation Oxygen Delivery Method Room Air Room Air Blood Pressure (90/60-120/80) 127/74 H 113/57 L 114/58 L Blood Pressure Mean (mm Hg) 91 75 76 Source Monitor Monitor Monitor Position Sitting Semi-Fowlers Sitting Blood Pressure Location Left Arm Left Arm Left Arm History Since Last Visit- (Skip if this is Patient's initial visit) Have you changed medications since your No No No last visit? Any new allergies or adverse reactions No No No Had a fall/change in ADL's that may No No No increase risk of falls Signs or symptoms of abuse and/or No No No neglect since last visit Have you been in the hospital since your No No No last visit? Has dressing in place as prescribed Yes No Has compression in place as prescribed Yes No Has offloadiing in place as prescribed N/A Experienced any changes in pain level or No management Left Footwear Regular Shoe Regular Shoe Regular Shoe Right Footwear Regular Shoe Regular Shoe Regular Shoe Pain Scale: 0-10 Numeric Is Patient Pain Free? Yes Yes Yes WC - Nurse 1 - General Ulcer Measurement Start: 01/23/24 10:44 Freq: Status: Active Protocol: Activity Type Activity Date Activity User E-sign Co-sign Detail Recorded Client Recorded Date Recorded By Document 01/23/24 10:44 DS Desktop 01/23/24 10:51 DS Document 01/30/24 10:13 KW Desktop 01/30/24 10:17 KW Document 02/06/24 10:18 DS [id number] 02/06/24 10:24 DS 01/23/24 01/30/24 02/06/24 10:44 10:13 10:18 Wound Center Nurse 1 #2 RT DORSAL FT -Combined with other wound No -Current Size (cm) - Length 0.8 0.5 0.1 -Current Size (cm) - Width 0.9 0.5 0.1 -Current Size (cm) - Depth 0.1 0.1 0.1 -Total Square Cm 0.72 0.25 0.01 -Photo Taken No No -Tunneling No No -Undermining/Tunneling No No -Circular Undermining No -Exudate Amt None Present None Present -Exudate Type Serosanguineous -Wound Margin Distinct, Distinct, Outline Outline Attached Attached -Granulation Amt Medium (34-66%) Large (67-100%) Medium (34-66%) -Granulation Quality Red [place] Red -Slough/Fibrin Yes Yes -Necrosis Amt Small (1-33%) Medium (34-66%) -Necrotic Tissue Type Adherent Slough Adherent Slough -Texture (Haley-wound Skin Appearance) Assessed Assessed Assessed -Moisture (Haley-wound Skin Appearance) Assessed Assessed, Assessed Maceration -Color (Haley-wound Skin Appearance) Assessed Assessed Assessed -Temperature (Haley-wound Skin No Abnormality No Abnormality No Abnormality Appearance) (Pt Warm) (Pt Warm) (Pt Warm) -Tenderness on Palpation (Haley-wound No No No Skin Appearance) -Ulcer Cleansing Rinsed/ Soap and Water Soap and Water Irrigated with Saline -Foul Odor after Cleansing No -Anesthetic Used 5% Lidocaine 5% Lidocaine 5% Lidocaine Gel Gel Gel #1 RT MED ANKLE -Current Size (cm) - Length 1.1 0.9 0.1 -Current Size (cm) - Width 2.6 2.2 0.1 -Current Size (cm) - Depth 0.1 0.1 0.1 -Total Square Cm 2.86 1.98 0.01 -Photo Taken No No -Tunneling No No -Undermining/Tunneling No No -Circular Undermining No No -Exudate Amt Medium Medium None Present -Exudate Type Serosanguineous Serosanguineous -Wound Margin Distinct, Distinct, Distinct, Outline Outline Outline Attached Attached Attached -Granulation Amt Medium (34-66%) Large (67-100%) Medium (34-66%) -Granulation Quality Red Red Red -Slough/Fibrin Yes Yes -Necrosis Amt Small (1-33%) Medium (34-66%) -Necrotic Tissue Type Adherent Slough Adherent Slough -Texture (Haley-wound Skin Appearance) Assessed Assessed Assessed -Moisture (Haley-wound Skin Appearance) Assessed Assessed, Assessed Maceration -Color (Haley-wound Skin Appearance) Assessed Assessed Assessed -Temperature (Haley-wound Skin No Abnormality No Abnormality No Abnormality Appearance) (Pt Warm) (Pt Warm) (Pt Warm) -Tenderness on Palpation (Haley-wound No No No Skin Appearance) -Ulcer Cleansing Rinsed/ Soap and Water Soap and Water Irrigated with Saline -Foul Odor after Cleansing No -Anesthetic Used 5% Lidocaine 5% Lidocaine 5% Lidocaine Gel Gel Gel Right Calf (cm) 52 51.6 Right Ankle (cm) 29.5 28.0 Left Calf (cm) 51 50.0 Left Ankle (cm) 28.6 27.4 WC - Nurse 2 - General Ulcer CM Notes Start: 01/23/24 10:44 Freq: Status: Active Protocol: Activity Type Activity Date Activity User E-sign Co-sign Detail Recorded Client Recorded Date Recorded By Document 01/23/24 10:59 JF Laptop 01/23/24 11:04 JF Document 01/30/24 10:29 DS Desktop 01/30/24 10:35 DS Document 02/06/24 10:29 DS [id number] 02/06/24 10:34 DS 01/23/24 01/30/24 02/06/24 10:59 10:29 10:29 Wound Center Nurse 2 #2 RT DORSAL FT -Time 11:02 10:29 10:30 -Correct Patient Yes Yes Yes -Correct Side, Site, Position Yes Yes Yes -Correct Procedure Yes Yes Yes -Procedure Performed Yes Yes -Type of Procedure Debridement Debridement Debridement -Clinical Debridement Subcutaneous Subcutaneous Subcutaneous -Tissue Removed Subcutaneous Subcutaneous Subcutaneous -Post Debridement (cm) - Length 0.8 0.5 0.1 -Post Debridement (cm) - Width 0.8 0.4 0.1 -Post Debridement (cm) - Depth 0.1 0.1 0.1 -Total Square (Post) (cm) 0.64 0.20 0.01 -Area of Debridement (cm) - Length 0.8 0.5 0.1 -Area of Debridement (cm) - Width 0.8 0.4 0.1 -Total Square (Area) (cm) 0.64 0.20 0.01 -Tunneling No No No -Undermining/Tunneling No No No -Circular Undermining No No No -Wound/Ulcer Outcome Not Healed Not Healed Not Healed -Ulcer Cleansing Rinsed/ Rinsed/ Irrigated with Irrigated with Saline Saline -Foul Odor after Cleansing No -Bioengineered Tissue No -Bleeding Controlled with Pressure Pressure Pressure -Treatment Response Procedure Procedure Procedure Tolerated Well Tolerated Well Tolerated Well -Offloading No No -Debridement - Subq, 1st 20sq cm Yes Yes Yes #1 RT MED ANKLE -Time 11:03 10:31 10:30 -Correct Patient Yes Yes Yes -Correct Side, Site, Position Yes Yes Yes -Correct Procedure Yes Yes Yes -Procedure Performed Yes Yes Yes -Type of Procedure Debridement Debridement Debridement -Clinical Debridement Subcutaneous Subcutaneous Subcutaneous -Tissue Removed Subcutaneous Subcutaneous Subcutaneous -Post Debridement (cm) - Length 2.8 1.9 0.7 -Post Debridement (cm) - Width 0.9 0.7 1.5 -Post Debridement (cm) - Depth 0.1 0.1 0.1 -Total Square (Post) (cm) 2.52 1.33 1.05 -Area of Debridement (cm) - Length 2.8 1.9 0.7 -Area of Debridement (cm) - Width 0.9 0.7 1.5 -Total Square (Area) (cm) 2.52 1.33 1.05 -Tunneling No No No -Undermining/Tunneling No No No -Circular Undermining No No No -Wound/Ulcer Outcome Not Healed Not Healed -Ulcer Cleansing Rinsed/ Rinsed/ Rinsed/ Irrigated with Irrigated with Irrigated with Saline Saline Saline -Foul Odor after Cleansing No -Bioengineered Tissue No -Bleeding Controlled with Pressure Pressure Pressure -Treatment Response Procedure Procedure Procedure Tolerated Well Tolerated Well Tolerated Well -Offloading No No -Debridement - Subq, 1st 20sq cm No No No Pain Scale: 0-10 Numeric Is Patient Pain Free? Yes Yes Yes - Nurse 3 - General Ulcer D/C NN Start: 01/23/24 10:44 Freq: Status: Active Protocol: Activity Type Activity Date Activity User E-sign Co-sign Detail Recorded Client Recorded Date Recorded By Document 01/23/24 11:07 Desktop 01/23/24 11:08 Document 01/30/24 10:49 Desktop 01/30/24 10:50 Document 02/06/24 10:45 [id number] 02/06/24 10:46 01/23/24 01/30/24 02/06/24 11:07 10:49 10:45 Wound Care Center Nurse 3 #2 RT DORSAL FT -Ulcer Cleansing Not Cleansed -Primary Dressing Applied Promogran Promogran Rosa M Matter Rosa M Matter -Primary Dressing Covered/Secured with Dry Gauze & Dry Gauze,Dry Roll Gauze, Gauze & Roll Secured with Gauze,Secured Tape with Tape -Promogran Rosa M Matter 1 1 #1 RT MED ANKLE -Ulcer Cleansing Not Cleansed Rinsed/ Irrigated with Saline -Foul Odor after Cleansing No No -Other Dressing used remainder hydrogel of rosa m -Primary Dressing Covered/Secured with Dry Gauze Dry Gauze, Secured with Tape Left -Lotion applied to leg before No compression wrap -Multi-Layered Wrap Application Multi-Layer Comp - Bilat ($ ) -Tubular Bandage Single Layer Double Layer -Size of Tubigrip Used Size F Size F -Size F ($) 1 2 Right -Tubular Bandage Single Layer Double Layer -Size of Tubigrip Used Size F Size F -Size F ($) 1 2 Pain Scale: 0-10 Numeric Is Patient Pain Free? Yes Yes Yes Teaching: Wound Center compression -Person Taught Patient -Teaching Method Discussion -Response to teaching Verbalize understanding WC - Visit Discharge Discharge Condition Stable Stable Stable Ambulatory Status Ambulatory Ambulatory Ambulatory Transportation Private Auto Private Auto Private Auto Medication Reconcilliation completed & No Yes provided to patient/care provider Clinical Summary of Care Provided Yes Yes Yes Assessment/Plan Assessment/Plan (1) Non-pressure chronic ulcer of right ankle with fat layer exposed: CODE(S): L97.312 - Non-pressure chronic ulcer of right ankle with fat layer exposed PLAN: Patient was examined and evaluated. All findings were discussed with the patient. All questions were answered to the patient's satisfaction. Excision debridement down to and including subcutaneous tissue of the right ankle wound with a number 3 mm dermal curette without incident. Predebridement measurement is 0.1 x 0.1 x 0.1 cm. Postdebridement measurement is 0.7 x 1.5 x 0.1 cm right lower extremities were cleaned and patted dry. Hydrogel was applied to the full-thickness wound to the right ankle followed by dry sterile dressing and double layer Tubigrip. Patient will perform daily dressing changes with Rosa M dry sterile dressing and double layer Tubigrip at home. Follow-up at the wound care center with Dr. Shahid in 1 week. (2) Other specified peripheral vascular diseases: CODE(S): I73.89 - Other specified peripheral vascular diseases
--- NOTE | 2024-02-06 12:11 | PN.PCM_ITS ---
History of Present Illness Date of Service: 02/06/24 Chief Complaint: Follow-up dehisced surgical back wound History of Wound: 73-year-old white male who had fusion done of the lumbar and October 28 of this year. On January 14 he had an I&D and basically they reopened his whole back and left it open and applied a wound VAC. He is here for follow- up on the wound VAC and for continued care. Suture line and fascia are of visible will cut some of the slough and extra out today with a 15 blade scissors and forceps. Cultures had been obtained through Dr. Stoner and patient is already on antibiotic therapy and will continue until he is finished. Noted that there is some undermining on the right lateral side of the wound. From -. There is concern for the foam keep sticking in the wound and causing severe pain and patient finds it unbearable. Home health care is coming in once a week and pam nging the wound VAC. I suggested we change to white foam for the undermining and most of the open area and then cover it with black foam. We will also increase compression to 150 mmHg. Objective Data Objective Data Vital Signs: Vital Signs Temp Pulse Resp BP O2 Del Method 97.3 F L 113 H 16 114/58 L Room Air 02/06/24 10:18 02/06/24 10:18 02/06/24 10:18 02/06/24 10:18 02/06/24 10:18 Oxygen Delivery Method Room Air Weight: 352 lb Body Mass Index (BMI) 51.2 Debridement Note Debridement Note Post-Debridement Measurements and Additional Note: Post-Debridement Measurements/Treatment - Nurse 1 - General Ulcer Assessment Start: 01/23/24 10:44 Freq: Status: Active Protocol: [email or web address] Activity Type Activity Date Activity User E-sign Co-sign Detail Recorded Client Recorded Date Recorded By Document 01/23/24 10:44 DS Desktop 01/23/24 10:51 DS Document 01/30/24 10:13 KW Desktop 01/30/24 10:17 KW Document 02/06/24 10:18 DS [id number] 02/06/24 10:24 DS 01/23/24 01/30/24 02/06/24 10:44 10:13 10:18 - Today's Visit Information Type of service Follow-up Visit Follow-up Visit Follow-up Visit (Physician/RADIOLOGY TECHNOLOGIST (Physician/RADIOLOGY TECHNOLOGIST (Physician/RADIOLOGY TECHNOLOGIST ) ) ) Arrival Mode Ambulatory Ambulatory Ambulatory Patient Identification Verified (Name & Yes ) Patient Requires Transmission-Based No Precautions Safety Precautions Fall Prevention Height and Weight Body Mass Index (BMI) 51.2 51.2 51.2 BMI Classification Obese Obese Obese Vital Signs Temperature (97.8 F-99.1 F) 97.7 F L 97.4 F L 97.3 F L Temperature Source Temporal Temporal Temporal Pulse Rate (60-100) 88 107 H 113 H Pulse Location Monitor Monitor Monitor Respiratory Rate (12-18) 18 16 Respiratory rate source Observation Observation Oxygen Delivery Method Room Air Room Air Blood Pressure (90/60-120/80) 127/74 H 113/57 L 114/58 L Blood Pressure Mean (mm Hg) 91 75 76 Source Monitor Monitor Monitor Position Sitting Semi-Fowlers Sitting Blood Pressure Location Left Arm Left Arm Left Arm History Since Last Visit- (Skip if this is Patient's initial visit) Have you changed medications since your No No No last visit? Any new allergies or adverse reactions No No No Had a fall/change in ADL's that may No No No increase risk of falls Signs or symptoms of abuse and/or No No No neglect since last visit Have you been in the hospital since your No No No last visit? Has dressing in place as prescribed Yes No Has compression in place as prescribed Yes No Has offloadiing in place as prescribed N/A Experienced any changes in pain level or No management Left Footwear Regular Shoe Regular Shoe Regular Shoe Right Footwear Regular Shoe Regular Shoe Regular Shoe Pain Scale: 0-10 Numeric Is Patient Pain Free? Yes Yes Yes WC - Nurse 1 - General Ulcer Measurement Start: 01/23/24 10:44 Freq: Status: Active Protocol: Activity Type Activity Date Activity User E-sign Co-sign Detail Recorded Client Recorded Date Recorded By Document 01/23/24 10:44 DS Desktop 01/23/24 10:51 DS Document 01/30/24 10:13 KW Desktop 01/30/24 10:17 KW Document 02/06/24 10:18 DS [id number] 02/06/24 10:24 DS 01/23/24 01/30/24 02/06/24 10:44 10:13 10:18 Wound Center Nurse 1 #2 RT DORSAL FT -Combined with other wound No -Current Size (cm) - Length 0.8 0.5 0.1 -Current Size (cm) - Width 0.9 0.5 0.1 -Current Size (cm) - Depth 0.1 0.1 0.1 -Total Square Cm 0.72 0.25 0.01 -Photo Taken No No -Tunneling No No -Undermining/Tunneling No No -Circular Undermining No -Exudate Amt None Present None Present -Exudate Type Serosanguineous -Wound Margin Distinct, Distinct, Outline Outline Attached Attached -Granulation Amt Medium (34-66%) Large (67-100%) Medium (34-66%) -Granulation Quality Red [place] Red -Slough/Fibrin Yes Yes -Necrosis Amt Small (1-33%) Medium (34-66%) -Necrotic Tissue Type Adherent Slough Adherent Slough -Texture (Haley-wound Skin Appearance) Assessed Assessed Assessed -Moisture (Haley-wound Skin Appearance) Assessed Assessed, Assessed Maceration -Color (Haley-wound Skin Appearance) Assessed Assessed Assessed -Temperature (Haley-wound Skin No Abnormality No Abnormality No Abnormality Appearance) (Pt Warm) (Pt Warm) (Pt Warm) -Tenderness on Palpation (Haley-wound No No No Skin Appearance) -Ulcer Cleansing Rinsed/ Soap and Water Soap and Water Irrigated with Saline -Foul Odor after Cleansing No -Anesthetic Used 5% Lidocaine 5% Lidocaine 5% Lidocaine Gel Gel Gel #1 RT MED ANKLE -Current Size (cm) - Length 1.1 0.9 0.1 -Current Size (cm) - Width 2.6 2.2 0.1 -Current Size (cm) - Depth 0.1 0.1 0.1 -Total Square Cm 2.86 1.98 0.01 -Photo Taken No No -Tunneling No No -Undermining/Tunneling No No -Circular Undermining No No -Exudate Amt Medium Medium None Present -Exudate Type Serosanguineous Serosanguineous -Wound Margin Distinct, Distinct, Distinct, Outline Outline Outline Attached Attached Attached -Granulation Amt Medium (34-66%) Large (67-100%) Medium (34-66%) -Granulation Quality Red Red Red -Slough/Fibrin Yes Yes -Necrosis Amt Small (1-33%) Medium (34-66%) -Necrotic Tissue Type Adherent Slough Adherent Slough -Texture (Haley-wound Skin Appearance) Assessed Assessed Assessed -Moisture (Haley-wound Skin Appearance) Assessed Assessed, Assessed Maceration -Color (Haley-wound Skin Appearance) Assessed Assessed Assessed -Temperature (Haley-wound Skin No Abnormality No Abnormality No Abnormality Appearance) (Pt Warm) (Pt Warm) (Pt Warm) -Tenderness on Palpation (Haley-wound No No No Skin Appearance) -Ulcer Cleansing Rinsed/ Soap and Water Soap and Water Irrigated with Saline -Foul Odor after Cleansing No -Anesthetic Used 5% Lidocaine 5% Lidocaine 5% Lidocaine Gel Gel Gel Right Calf (cm) 52 51.6 Right Ankle (cm) 29.5 28.0 Left Calf (cm) 51 50.0 Left Ankle (cm) 28.6 27.4 WC - Nurse 2 - General Ulcer CM Notes Start: 01/23/24 10:44 Freq: Status: Active Protocol: Activity Type Activity Date Activity User E-sign Co-sign Detail Recorded Client Recorded Date Recorded By Document 01/23/24 10:59 Laptop 01/23/24 11:04 Document 01/30/24 10:29 DS Desktop 01/30/24 10:35 DS Document 02/06/24 10:29 DS [id number] 02/06/24 10:34 DS 01/23/24 01/30/24 02/06/24 10:59 10:29 10:29 Wound Center Nurse 2 #2 RT DORSAL FT -Time 11:02 10:29 10:30 -Correct Patient Yes Yes Yes -Correct Side, Site, Position Yes Yes Yes -Correct Procedure Yes Yes Yes -Procedure Performed Yes Yes -Type of Procedure Debridement Debridement Debridement -Clinical Debridement Subcutaneous Subcutaneous Subcutaneous -Tissue Removed Subcutaneous Subcutaneous Subcutaneous -Post Debridement (cm) - Length 0.8 0.5 0.1 -Post Debridement (cm) - Width 0.8 0.4 0.1 -Post Debridement (cm) - Depth 0.1 0.1 0.1 -Total Square (Post) (cm) 0.64 0.20 0.01 -Area of Debridement (cm) - Length 0.8 0.5 0.1 -Area of Debridement (cm) - Width 0.8 0.4 0.1 -Total Square (Area) (cm) 0.64 0.20 0.01 -Tunneling No No No -Undermining/Tunneling No No No -Circular Undermining No No No -Wound/Ulcer Outcome Not Healed Not Healed Not Healed -Ulcer Cleansing Rinsed/ Rinsed/ Irrigated with Irrigated with Saline Saline -Foul Odor after Cleansing No -Bioengineered Tissue No -Bleeding Controlled with Pressure Pressure Pressure -Treatment Response Procedure Procedure Procedure Tolerated Well Tolerated Well Tolerated Well -Offloading No No -Debridement - Subq, 1st 20sq cm Yes Yes Yes #1 RT MED ANKLE -Time 11:03 10:31 10:30 -Correct Patient Yes Yes Yes -Correct Side, Site, Position Yes Yes Yes -Correct Procedure Yes Yes Yes -Procedure Performed Yes Yes Yes -Type of Procedure Debridement Debridement Debridement -Clinical Debridement Subcutaneous Subcutaneous Subcutaneous -Tissue Removed Subcutaneous Subcutaneous Subcutaneous -Post Debridement (cm) - Length 2.8 1.9 0.7 -Post Debridement (cm) - Width 0.9 0.7 1.5 -Post Debridement (cm) - Depth 0.1 0.1 0.1 -Total Square (Post) (cm) 2.52 1.33 1.05 -Area of Debridement (cm) - Length 2.8 1.9 0.7 -Area of Debridement (cm) - Width 0.9 0.7 1.5 -Total Square (Area) (cm) 2.52 1.33 1.05 -Tunneling No No No -Undermining/Tunneling No No No -Circular Undermining No No No -Wound/Ulcer Outcome Not Healed Not Healed -Ulcer Cleansing Rinsed/ Rinsed/ Rinsed/ Irrigated with Irrigated with Irrigated with Saline Saline Saline -Foul Odor after Cleansing No -Bioengineered Tissue No -Bleeding Controlled with Pressure Pressure Pressure -Treatment Response Procedure Procedure Procedure Tolerated Well Tolerated Well Tolerated Well -Offloading No No -Debridement - Subq, 1st 20sq cm No No No Pain Scale: 0-10 Numeric Is Patient Pain Free? Yes Yes Yes - Nurse 3 - General Ulcer D/C NN Start: 01/23/24 10:44 Freq: Status: Active Protocol: Activity Type Activity Date Activity User E-sign Co-sign Detail Recorded Client Recorded Date Recorded By Document 01/23/24 11:07 KW Desktop 01/23/24 11:08 KW Document 01/30/24 10:49 GM Desktop 01/30/24 10:50 GM Document 02/06/24 10:45 [id number] 02/06/24 10:46 01/23/24 01/30/24 02/06/24 11:07 10:49 10:45 Wound Care Center Nurse 3 #2 RT DORSAL FT -Ulcer Cleansing Not Cleansed -Primary Dressing Applied Promogran Promogran Yun Matter Yun Matter -Primary Dressing Covered/Secured with Dry Gauze & Dry Gauze,Dry Roll Gauze, Gauze & Roll Secured with Gauze,Secured Tape with Tape -Promogran Yun Matter 1 1 #1 RT MED ANKLE -Ulcer Cleansing Not Cleansed Rinsed/ Irrigated with Saline -Foul Odor after Cleansing No No -Other Dressing used remainder hydrogel of yun -Primary Dressing Covered/Secured with Dry Gauze Dry Gauze, Secured with Tape Left -Lotion applied to leg before No compression wrap -Multi-Layered Wrap Application Multi-Layer Comp - Bilat ($ ) -Tubular Bandage Single Layer Double Layer -Size of Tubigrip Used Size F Size F -Size F ($) 1 2 Right -Tubular Bandage Single Layer Double Layer -Size of Tubigrip Used Size F Size F -Size F ($) 1 2 Pain Scale: 0-10 Numeric Is Patient Pain Free? Yes Yes Yes Teaching: Wound Center compression -Person Taught Patient -Teaching Method Discussion -Response to teaching Verbalize understanding WC - Visit Discharge Discharge Condition Stable Stable Stable Ambulatory Status Ambulatory Ambulatory Ambulatory Transportation Private Auto Private Auto Private Auto Medication Reconcilliation completed & No Yes provided to patient/care provider Clinical Summary of Care Provided Yes Yes Yes
[2024-02-13 10:31] VITALS: BP 120/62; PULSE 95; RESP 18; TEMP 36.3; BMI 51.2
--- NOTE | 2024-02-13 11:42 | PN.PCM_ITS ---
History of Present Illness Date of Service: 02/13/24 Chief Complaint: Right foot and ankle wounds History of Wound: Nonhealing right foot and ankle wounds Subjective Subjective Mr. Shi is a 73-year-old male who is diabetic presenting to wound care center today for follow-up evaluation of 2 full-thickness ulcerations to the foot and ankle of the right foot. Patient states his itching is better. He has been doing home dressing changes as discussed. He denies any trauma. Denies constitutional symptoms. Other pedal complaints at this time. Objective Data Objective Data Vital Signs: Vital Signs Temp Pulse Resp BP O2 Del Method 97.3 F L 95 18 120/62 Room Air 02/13/24 10:31 02/13/24 10:31 02/13/24 10:31 02/13/24 10:31 02/13/24 10:31 Oxygen Delivery Method Room Air Weight: 159.665 kg Body Mass Index (BMI) 51.2 Physical Exam Narrative Vascular: DP and PT pulses are palpable bilateral. Nonpitting edema appreciated to the right lower extremity. Skin temperature gradient warm to warm from proximal ankle to distal digits with no focal increase. Skin is well-hydrated and supple. Neurological: Light touch intact. Protective sensation is diminished to the bilateral lower extremity. Dermatological: The right ankle ulceration measures 0.3 x 0.5 x 0.1 cm. Wound base are granular in nature with no sign of infection. There is blanchable erythema appreciated to the right foot wound with no proximal streaking. No probe to bone. No malodor. Webspaces 1-4 are clean dry and intact. Excision debridement down to and including subcutaneous tissue of the right ankle wound with a number 3 mm dermal curette without incident. Predebridement measurement is callus. Postdebridement measurement is 0.3 x 0.5 x 0.1 cm. Musculoskeletal: Muscle strength is 5 and 5 in all quadrants bilateral. No pain on palpation to the full-thickness ulceration. No pain with calf pression. Debridement Note Debridement Note Debridement Free Text: Excision debridement down to and including subcutaneous tissue of the right ankle wound with a number 3 mm dermal curette without incident. Predebridement measurement is callus. Postdebridement measurement is 0.3 x 0.5 x 0.1 cm. Post-Debridement Measurements and Additional Note: Post-Debridement Measurements/Treatment WC - Nurse 1 - General Ulcer Assessment Start: 01/23/24 10:44 Freq: Status: Active Protocol: [email or web address].LOWEXT Activity Type Activity Date Activity User E-sign Co-sign Detail Recorded Client Recorded Date Recorded By Document 01/23/24 10:44 DS Desktop 01/23/24 10:51 DS Document 01/30/24 10:13 KW Desktop 01/30/24 10:17 KW Document 02/06/24 10:18 DS [id number] 02/06/24 10:24 DS Document 02/13/24 10:31 KW wound center 02/13/24 10:36 KW 01/23/24 01/30/24 02/06/24 10:44 10:13 10:18 WC - Today's Visit Information Type of service Follow-up Visit Follow-up Visit Follow-up Visit (Physician/PROFESSOR OF KINESIOLOGY (Physician/PROFESSOR OF KINESIOLOGY (Physician/PROFESSOR OF KINESIOLOGY ) ) ) Arrival Mode Ambulatory Ambulatory Ambulatory Accompanied by Patient Identification Verified (Name & Yes ) Patient Requires Transmission-Based No Precautions Safety Precautions Fall Prevention Height and Weight Body Mass Index (BMI) 51.2 51.2 51.2 BMI Classification Obese Obese Obese Vital Signs Temperature (97.8 F-99.1 F) 97.7 F L 97.4 F L 97.3 F L Temperature Source Temporal Temporal Temporal Pulse Rate (60-100) 88 107 H 113 H Pulse Location Monitor Monitor Monitor Respiratory Rate (12-18) 18 16 Respiratory rate source Observation Observation Oxygen Delivery Method Room Air Room Air Blood Pressure (90/60-120/80) 127/74 H 113/57 L 114/58 L Blood Pressure Mean (mm Hg) 91 75 76 Source Monitor Monitor Monitor Position Sitting Semi-Fowlers Sitting Blood Pressure Location Left Arm Left Arm Left Arm History Since Last Visit- (Skip if this is Patient's initial visit) Have you changed medications since your No No No last visit? Any new allergies or adverse reactions No No No Had a fall/change in ADL's that may No No No increase risk of falls Signs or symptoms of abuse and/or No No No neglect since last visit Have you been in the hospital since your No No No last visit? Has dressing in place as prescribed Yes No Has compression in place as prescribed Yes No Has offloadiing in place as prescribed N/A Experienced any changes in pain level or No management Left Footwear Regular Shoe Regular Shoe Regular Shoe Right Footwear Regular Shoe Regular Shoe Regular Shoe Pain Scale: 0-10 Numeric Is Patient Pain Free? Yes Yes Yes 02/13/24 10:31 WC - Today's Visit Information Type of service Follow-up Visit (Physician/PROFESSOR OF KINESIOLOGY ) Arrival Mode Ambulatory Accompanied by Patient Identification Verified (Name & Yes ) Patient Requires Transmission-Based Precautions Safety Precautions Height and Weight Body Mass Index (BMI) 51.2 BMI Classification Obese Vital Signs Temperature (97.8 F-99.1 F) 97.3 F L Temperature Source Temporal Pulse Rate (60-100) 95 Pulse Location Monitor Respiratory Rate (12-18) 18 Respiratory rate source Observation Oxygen Delivery Method Room Air Blood Pressure (90/60-120/80) 120/62 Blood Pressure Mean (mm Hg) 81 Source Monitor Position Semi-Fowlers Blood Pressure Location Left Forearm History Since Last Visit- (Skip if this is Patient's initial visit) Have you changed medications since your No last visit? Any new allergies or adverse reactions No Had a fall/change in ADL's that may No increase risk of falls Signs or symptoms of abuse and/or No neglect since last visit Have you been in the hospital since your No last visit? Has dressing in place as prescribed Yes Has compression in place as prescribed Yes Has offloadiing in place as prescribed N/A Experienced any changes in pain level or No management Left Footwear Regular Shoe Right Footwear Regular Shoe Pain Scale: 0-10 Numeric Is Patient Pain Free? Yes - Nurse 1 - General Ulcer Measurement Start: 01/23/24 10:44 Freq: Status: Active Protocol: Activity Type Activity Date Activity User E-sign Co-sign Detail Recorded Client Recorded Date Recorded By Document 01/23/24 10:44 DS Desktop 01/23/24 10:51 DS Document 01/30/24 10:13 KW Desktop 01/30/24 10:17 KW Document 02/06/24 10:18 DS [id number] 02/06/24 10:24 DS Document 02/13/24 10:31 KW wound center 02/13/24 10:36 KW 01/23/24 01/30/24 02/06/24 10:44 10:13 10:18 Wound Center Nurse 1 #2 RT DORSAL FT -Combined with other wound No -Current Size (cm) - Length 0.8 0.5 0.1 -Current Size (cm) - Width 0.9 0.5 0.1 -Current Size (cm) - Depth 0.1 0.1 0.1 -Total Square Cm 0.72 0.25 0.01 -Photo Taken No No -Tunneling No No -Undermining/Tunneling No No -Circular Undermining No -Exudate Amt None Present None Present -Exudate Type Serosanguineous -Wound Margin Distinct, Distinct, Outline Outline Attached Attached -Granulation Amt Medium (34-66%) Large (67-100%) Medium (34-66%) -Granulation Quality Red Benoit Red -Slough/Fibrin Yes Yes -Necrosis Amt Small (1-33%) Medium (34-66%) -Necrotic Tissue Type Adherent Slough Adherent Slough -Texture (Haley-wound Skin Appearance) Assessed Assessed Assessed -Moisture (Haley-wound Skin Appearance) Assessed Assessed, Assessed Maceration -Color (Haley-wound Skin Appearance) Assessed Assessed Assessed -Temperature (Haley-wound Skin No Abnormality No Abnormality No Abnormality Appearance) (Pt Warm) (Pt Warm) (Pt Warm) -Tenderness on Palpation (Haley-wound No No No Skin Appearance) -Ulcer Cleansing Rinsed/ Soap and Water Soap and Water Irrigated with Saline -Foul Odor after Cleansing No -Anesthetic Used 5% Lidocaine 5% Lidocaine 5% Lidocaine Gel Gel Gel #1 RT MED ANKLE -Current Size (cm) - Length 1.1 0.9 0.1 -Current Size (cm) - Width 2.6 2.2 0.1 -Current Size (cm) - Depth 0.1 0.1 0.1 -Total Square Cm 2.86 1.98 0.01 -Photo Taken No No -Epithelialization -Tunneling No No -Undermining/Tunneling No No -Circular Undermining No No -Exudate Amt Medium Medium None Present -Exudate Type Serosanguineous Serosanguineous -Wound Margin Distinct, Distinct, Distinct, Outline Outline Outline Attached Attached Attached -Granulation Amt Medium (34-66%) Large (67-100%) Medium (34-66%) -Granulation Quality Red Red Red -Slough/Fibrin Yes Yes -Necrosis Amt Small (1-33%) Medium (34-66%) -Necrotic Tissue Type Adherent Slough Adherent Slough -Texture (Haley-wound Skin Appearance) Assessed Assessed Assessed -Moisture (Haley-wound Skin Appearance) Assessed Assessed, Assessed Maceration -Color (Haley-wound Skin Appearance) Assessed Assessed Assessed -Temperature (Haley-wound Skin No Abnormality No Abnormality No Abnormality Appearance) (Pt Warm) (Pt Warm) (Pt Warm) -Tenderness on Palpation (Haley-wound No No No Skin Appearance) -Ulcer Cleansing Rinsed/ Soap and Water Soap and Water Irrigated with Saline -Foul Odor after Cleansing No -Anesthetic Used 5% Lidocaine 5% Lidocaine 5% Lidocaine Gel Gel Gel Right Calf (cm) 52 51.6 Right Ankle (cm) 29.5 28.0 Left Calf (cm) 51 50.0 Left Ankle (cm) 28.6 27.4 02/13/24 10:31 Wound Center Nurse 1 #2 RT DORSAL FT -Combined with other wound -Current Size (cm) - Length -Current Size (cm) - Width -Current Size (cm) - Depth -Total Square Cm -Photo Taken -Tunneling -Undermining/Tunneling -Circular Undermining -Exudate Amt -Exudate Type -Wound Margin -Granulation Amt -Granulation Quality -Slough/Fibrin -Necrosis Amt -Necrotic Tissue Type -Texture (Haley-wound Skin Appearance) -Moisture (Haley-wound Skin Appearance) -Color (Haley-wound Skin Appearance) -Temperature (Haley-wound Skin Appearance) -Tenderness on Palpation (Haley-wound Skin Appearance) -Ulcer Cleansing -Foul Odor after Cleansing -Anesthetic Used #1 RT MED ANKLE -Current Size (cm) - Length 0.4 -Current Size (cm) - Width 0.3 -Current Size (cm) - Depth 0.1 -Total Square Cm 0.12 -Photo Taken -Epithelialization Large 67-100% -Tunneling -Undermining/Tunneling -Circular Undermining -Exudate Amt Small -Exudate Type Serosanguineous -Wound Margin Distinct, Outline Attached -Granulation Amt Large (67-100%) -Granulation Quality Benoit -Slough/Fibrin -Necrosis Amt -Necrotic Tissue Type -Texture (Haley-wound Skin Appearance) Assessed -Moisture (Haley-wound Skin Appearance) Dry/Scaly -Color (Haley-wound Skin Appearance) Assessed -Temperature (Haley-wound Skin No Abnormality Appearance) (Pt Warm) -Tenderness on Palpation (Haley-wound No Skin Appearance) -Ulcer Cleansing Rinsed/ Irrigated with Saline -Foul Odor after Cleansing No -Anesthetic Used 5% Lidocaine Gel Right Calf (cm) 51.5 Right Ankle (cm) 29.5 Left Calf (cm) Left Ankle (cm) WC - Nurse 2 - General Ulcer CM Notes Start: 01/23/24 10:44 Freq: Status: Active Protocol: Activity Type Activity Date Activity User E-sign Co-sign Detail Recorded Client Recorded Date Recorded By Document 01/23/24 10:59 JF Laptop 01/23/24 11:04 JF Document 01/30/24 10:29 DS Desktop 01/30/24 10:35 DS Document 02/06/24 10:29 DS [id number] 02/06/24 10:34 DS Document 02/13/24 11:02 JF [id number] 02/13/24 11:05 JF 01/23/24 01/30/24 02/06/24 10:59 10:29 10:29 Wound Center Nurse 2 #2 RT DORSAL FT -Time 11:02 10:29 10:30 -Correct Patient Yes Yes Yes -Correct Side, Site, Position Yes Yes Yes -Correct Procedure Yes Yes Yes -Procedure Performed Yes Yes -Type of Procedure Debridement Debridement Debridement -Clinical Debridement Subcutaneous Subcutaneous Subcutaneous -Tissue Removed Subcutaneous Subcutaneous Subcutaneous -Post Debridement (cm) - Length 0.8 0.5 0.1 -Post Debridement (cm) - Width 0.8 0.4 0.1 -Post Debridement (cm) - Depth 0.1 0.1 0.1 -Total Square (Post) (cm) 0.64 0.20 0.01 -Area of Debridement (cm) - Length 0.8 0.5 0.1 -Area of Debridement (cm) - Width 0.8 0.4 0.1 -Total Square (Area) (cm) 0.64 0.20 0.01 -Tunneling No No No -Undermining/Tunneling No No No -Circular Undermining No No No -Wound/Ulcer Outcome Not Healed Not Healed Not Healed -Ulcer Cleansing Rinsed/ Rinsed/ Irrigated with Irrigated with Saline Saline -Foul Odor after Cleansing No -Bioengineered Tissue No -Bleeding Controlled with Pressure Pressure Pressure -Treatment Response Procedure Procedure Procedure Tolerated Well Tolerated Well Tolerated Well -Offloading No No -Debridement - Subq, 1st 20sq cm Yes Yes Yes #1 RT MED ANKLE -Time 11:03 10:31 10:30 -Correct Patient Yes Yes Yes -Correct Side, Site, Position Yes Yes Yes -Correct Procedure Yes Yes Yes -Procedure Performed Yes Yes Yes -Type of Procedure Debridement Debridement Debridement -Clinical Debridement Subcutaneous Subcutaneous Subcutaneous -Tissue Removed Subcutaneous Subcutaneous Subcutaneous -Post Debridement (cm) - Length 2.8 1.9 0.7 -Post Debridement (cm) - Width 0.9 0.7 1.5 -Post Debridement (cm) - Depth 0.1 0.1 0.1 -Total Square (Post) (cm) 2.52 1.33 1.05 -Area of Debridement (cm) - Length 2.8 1.9 0.7 -Area of Debridement (cm) - Width 0.9 0.7 1.5 -Total Square (Area) (cm) 2.52 1.33 1.05 -Tunneling No No No -Undermining/Tunneling No No No -Circular Undermining No No No -Wound/Ulcer Outcome Not Healed Not Healed -Ulcer Cleansing Rinsed/ Rinsed/ Rinsed/ Irrigated with Irrigated with Irrigated with Saline Saline Saline -Foul Odor after Cleansing No -Bioengineered Tissue No -Bleeding Controlled with Pressure Pressure Pressure -Treatment Response Procedure Procedure Procedure Tolerated Well Tolerated Well Tolerated Well -Offloading No No -Debridement - Subq, 1st 20sq cm No No No Pain Scale: 0-10 Numeric Is Patient Pain Free? Yes Yes Yes 02/13/24 11:02 Wound Center Nurse 2 #2 RT DORSAL FT -Time -Correct Patient -Correct Side, Site, Position -Correct Procedure -Procedure Performed -Type of Procedure -Clinical Debridement -Tissue Removed -Post Debridement (cm) - Length -Post Debridement (cm) - Width -Post Debridement (cm) - Depth -Total Square (Post) (cm) -Area of Debridement (cm) - Length -Area of Debridement (cm) - Width -Total Square (Area) (cm) -Tunneling -Undermining/Tunneling -Circular Undermining -Wound/Ulcer Outcome -Ulcer Cleansing -Foul Odor after Cleansing -Bioengineered Tissue -Bleeding Controlled with -Treatment Response -Offloading -Debridement - Subq, 1st 20sq cm #1 RT MED ANKLE -Time 11:02 -Correct Patient Yes -Correct Side, Site, Position Yes -Correct Procedure Yes -Procedure Performed Yes -Type of Procedure Debridement -Clinical Debridement Subcutaneous -Tissue Removed Subcutaneous -Post Debridement (cm) - Length 0.3 -Post Debridement (cm) - Width 0.5 -Post Debridement (cm) - Depth 0.1 -Total Square (Post) (cm) 0.15 -Area of Debridement (cm) - Length 0.3 -Area of Debridement (cm) - Width 0.5 -Total Square (Area) (cm) 0.15 -Tunneling No -Undermining/Tunneling No -Circular Undermining No -Wound/Ulcer Outcome Not Healed -Ulcer Cleansing Rinsed/ Irrigated with Saline -Foul Odor after Cleansing No -Bioengineered Tissue No -Bleeding Controlled with Pressure -Treatment Response Procedure Tolerated Well -Offloading No -Debridement - Subq, 1st 20sq cm Yes Pain Scale: 0-10 Numeric Is Patient Pain Free? Yes WC - Nurse 3 - General Ulcer D/C NN Start: 01/23/24 10:44 Freq: Status: Active Protocol: Activity Type Activity Date Activity User E-sign Co-sign Detail Recorded Client Recorded Date Recorded By Document 01/23/24 11:07 Desktop 01/23/24 11:08 Document 01/30/24 10:49 Desktop 01/30/24 10:50 Document 02/06/24 10:45 [id number] 02/06/24 10:46 Document 02/13/24 11:20 wound center 02/13/24 11:21 01/23/24 01/30/24 02/06/24 11:07 10:49 10:45 Wound Care Center Nurse 3 #2 RT DORSAL FT -Ulcer Cleansing Not Cleansed -Primary Dressing Applied Promogran Promogran Rosa M Matter Rosa M Matter -Primary Dressing Covered/Secured with Dry Gauze & Dry Gauze,Dry Roll Gauze, Gauze & Roll Secured with Gauze,Secured Tape with Tape -Promogran Rosa M Matter 1 1 #1 RT MED ANKLE -Ulcer Cleansing Not Cleansed Rinsed/ Irrigated with Saline -Foul Odor after Cleansing No No -Primary Dressing Applied -Other Dressing used remainder hydrogel of rosa m -Primary Dressing Covered/Secured with Dry Gauze Dry Gauze, Secured with Tape -Promogran Rosa M Matter Left -Lotion applied to leg before No compression wrap -Multi-Layered Wrap Application Multi-Layer Comp - Bilat ($ ) -Tubular Bandage Single Layer Double Layer -Size of Tubigrip Used Size F Size F -Size F ($) 1 2 Right -Lotion applied to leg before compression wrap -Tubular Bandage Single Layer Double Layer -Size of Tubigrip Used Size F Size F -Size F ($) 1 2 Pain Scale: 0-10 Numeric Is Patient Pain Free? Yes Yes Yes Teaching: Wound Center compression -Person Taught Patient -Teaching Method Discussion -Response to teaching Verbalize understanding WC - Visit Discharge Discharge Condition Stable Stable Stable Ambulatory Status Ambulatory Ambulatory Ambulatory Transportation Private Auto Private Auto Private Auto Medication Reconcilliation completed & No Yes provided to patient/care provider Clinical Summary of Care Provided Yes Yes Yes 02/13/24 11:20 Wound Care Center Nurse 3 #2 RT DORSAL FT -Ulcer Cleansing -Primary Dressing Applied -Primary Dressing Covered/Secured with -Promogran Rosa M Matter #1 RT MED ANKLE -Ulcer Cleansing Not Cleansed -Foul Odor after Cleansing No -Primary Dressing Applied Promogran Rosa M Matter -Other Dressing -Primary Dressing Covered/Secured with Dry Gauze,Dry Gauze & Roll Gauze,Secured with Tape -Promogran Rosa M Matter 1 Left -Lotion applied to leg before compression wrap -Multi-Layered Wrap Application -Tubular Bandage -Size of Tubigrip Used -Size F ($) Right -Lotion applied to leg before No compression wrap -Tubular Bandage Double Layer -Size of Tubigrip Used Size F -Size F ($) 2 Pain Scale: 0-10 Numeric Is Patient Pain Free? Yes Teaching: Wound Center compression -Person Taught -Teaching Method -Response to teaching WC - Visit Discharge Discharge Condition Stable Ambulatory Status Ambulatory, Walker Transportation Private Auto Medication Reconcilliation completed & provided to patient/care provider Clinical Summary of Care Provided Yes Assessment/Plan Assessment/Plan (1) Non-pressure chronic ulcer of right ankle with fat layer exposed: CODE(S): L97.312 - Non-pressure chronic ulcer of right ankle with fat layer exposed PLAN: Patient was examined and evaluated. All findings were discussed with the patient. All questions were answered to the patient's satisfaction. Excision debridement down to and including subcutaneous tissue of the right ankle wound with a number 3 mm dermal curette without incident. Predebridement measurement is callus. Postdebridement measurement is 0.3 x 0.5 x 0.1 cm. Moist present was applied to the ulceration followed by dry sterile dressing and double layer Tubigrip. Patient will continue dressing changes and follow-up in 1 week. Follow-up at the wound care center with Dr. Shahid in 1 week. (2) Other specified peripheral vascular diseases: CODE(S): I73.89 - Other specified peripheral vascular diseases
[2024-02-20 10:22] VITALS: BP 146/82; PULSE 86; RESP 18; TEMP 36.5; BMI 51.2
--- NOTE | 2024-02-20 11:41 | PN.PCM_ITS ---
History of Present Illness Date of Service: 02/20/24 Chief Complaint: Right foot and ankle wounds History of Wound: Nonhealing right foot and ankle wounds Subjective Subjective Mr. Shi is a 73-year-old male who is diabetic presenting to wound care center today for follow-up evaluation of 2 full-thickness ulcerations to the foot and ankle of the right foot. Patient states his itching is better. He has been doing home dressing changes as discussed. He denies any trauma. Denies constitutional symptoms. Other pedal complaints at this time. Objective Data Objective Data Vital Signs: Vital Signs Temp Pulse Resp BP O2 Del Method 97.7 F L 86 18 146/82 H Room Air 02/20/24 10:22 02/20/24 10:22 02/20/24 10:22 02/20/24 10:02/20/24 10:22 Oxygen Delivery Method Room Air Weight: 159.665 kg Body Mass Index (BMI) 51.2 Physical Exam Narrative Vascular: DP and PT pulses are palpable bilateral. Nonpitting edema appreciated to the right lower extremity. Skin temperature gradient warm to warm from proximal ankle to distal digits with no focal increase. Skin is well-hydrated and supple. Neurological: Light touch intact. Protective sensation is diminished to the bilateral lower extremity. Dermatological: The right ankle ulceration is now healed. Wound base are granular in nature with no sign of infection. There is blanchable erythema appreciated to the right foot wound with no proximal streaking. No probe to bone. No malodor. Webspaces 1-4 are clean dry and intact. Musculoskeletal: Muscle strength is 5 and 5 in all quadrants bilateral. No pain on palpation to the full-thickness ulceration. No pain with calf pression. Debridement Note Debridement Note Post-Debridement Measurements and Additional Note: Post-Debridement Measurements/Treatment MICHELLE - Nurse 1 - General Ulcer Assessment Start: 01/23/24 10:44 Freq: Status: Active Protocol: VAHID Activity Type Activity Date Activity User E-sign Co-sign Detail Recorded Client Recorded Date Recorded By Document 01/23/24 10:44 DS Desktop 01/23/24 10:51 DS Document 01/30/24 10:13 KW Desktop 01/30/24 10:17 KW Document 02/06/24 10:18 DS [id number] 02/06/24 10:24 DS Document 02/13/24 10:31 KW wound center 02/13/24 10:36 KW Document 02/20/24 10:22 KW wound center 02/20/24 10:26 KW 01/23/24 01/30/24 02/06/24 10:44 10:13 10:18 - Today's Visit Information Type of service Follow-up Visit Follow-up Visit Follow-up Visit (Physician/CALL CENTER DISPATCHER (Physician/CALL CENTER DISPATCHER (Physician/CALL CENTER DISPATCHER ) ) ) Arrival Mode Ambulatory Ambulatory Ambulatory Accompanied by Patient Identification Verified (Name & Yes ) Patient Requires Transmission-Based No Precautions Safety Precautions Fall Prevention Height and Weight Body Mass Index (BMI) 51.2 51.2 51.2 BMI Classification Obese Obese Obese Vital Signs Temperature (97.8 F-99.1 F) 97.7 F L 97.4 F L 97.3 F L Temperature Source Temporal Temporal Temporal Pulse Rate (60-100) 88 107 H 113 H Pulse Location Monitor Monitor Monitor Respiratory Rate (12-18) 18 16 Respiratory rate source Observation Observation Oxygen Delivery Method Room Air Room Air Blood Pressure (90/60-120/80) 127/74 H 113/57 L 114/58 L Blood Pressure Mean (mm Hg) 91 75 76 Source Monitor Monitor Monitor Position Sitting Semi-Fowlers Sitting Blood Pressure Location Left Arm Left Arm Left Arm History Since Last Visit- (Skip if this is Patient's initial visit) Have you changed medications since your No No No last visit? Any new allergies or adverse reactions No No No Had a fall/change in ADL's that may No No No increase risk of falls Signs or symptoms of abuse and/or No No No neglect since last visit Have you been in the hospital since your No No No last visit? Has dressing in place as prescribed Yes No Has compression in place as prescribed Yes No Has offloadiing in place as prescribed N/A Experienced any changes in pain level or No management Left Footwear Regular Shoe Regular Shoe Regular Shoe Right Footwear Regular Shoe Regular Shoe Regular Shoe Pain Scale: 0-10 Numeric Is Patient Pain Free? Yes Yes Yes 02/13/24 02/20/24 10:31 10:22 - Today's Visit Information Type of service Follow-up Visit Follow-up Visit (Physician/CALL CENTER DISPATCHER (Physician/CALL CENTER DISPATCHER ) ) Arrival Mode Ambulatory Ambulatory Accompanied by Patient Identification Verified (Name & Yes Yes ) Patient Requires Transmission-Based Precautions Safety Precautions Height and Weight Body Mass Index (BMI) 51.2 51.2 BMI Classification Obese Obese Vital Signs Temperature (97.8 F-99.1 F) 97.3 F L 97.7 F L Temperature Source Temporal Temporal Pulse Rate (60-100) 95 86 Pulse Location Monitor Monitor Respiratory Rate (12-18) 18 18 Respiratory rate source Observation Observation Oxygen Delivery Method Room Air Room Air Blood Pressure (90/60-120/80) 120/62 146/82 H Blood Pressure Mean (mm Hg) 81 103 Source Monitor Monitor Position Semi-Fowlers Sitting Blood Pressure Location Left Forearm Left Forearm History Since Last Visit- (Skip if this is Patient's initial visit) Have you changed medications since your No No last visit? Any new allergies or adverse reactions No No Had a fall/change in ADL's that may No No increase risk of falls Signs or symptoms of abuse and/or No No neglect since last visit Have you been in the hospital since your No No last visit? Has dressing in place as prescribed Yes Yes Has compression in place as prescribed Yes Yes Has offloadiing in place as prescribed N/A N/A Experienced any changes in pain level or No No management Left Footwear Regular Shoe Regular Shoe Right Footwear Regular Shoe Regular Shoe Pain Scale: 0-10 Numeric Is Patient Pain Free? Yes Yes WC - Nurse 1 - General Ulcer Measurement Start: 01/23/24 10:44 Freq: Status: Active Protocol: Activity Type Activity Date Activity User E-sign Co-sign Detail Recorded Client Recorded Date Recorded By Document 01/23/24 10:44 DS Desktop 01/23/24 10:51 DS Document 01/30/24 10:13 KW Desktop 01/30/24 10:17 KW Document 02/06/24 10:18 DS [id number] 02/06/24 10:24 DS Document 02/13/24 10:31 KW wound center 02/13/24 10:36 KW Document 02/20/24 10:22 KW wound center 02/20/24 10:26 KW 01/23/24 01/30/24 02/06/24 10:44 10:13 10:18 Wound Center Nurse 1 #2 RT DORSAL FT -Combined with other wound No -Current Size (cm) - Length 0.8 0.5 0.1 -Current Size (cm) - Width 0.9 0.5 0.1 -Current Size (cm) - Depth 0.1 0.1 0.1 -Total Square Cm 0.72 0.25 0.01 -Photo Taken No No -Tunneling No No -Undermining/Tunneling No No -Circular Undermining No -Exudate Amt None Present None Present -Exudate Type Serosanguineous -Wound Margin Distinct, Distinct, Outline Outline Attached Attached -Granulation Amt Medium (34-66%) Large (67-100%) Medium (34-66%) -Granulation Quality Red [place] Red -Slough/Fibrin Yes Yes -Necrosis Amt Small (1-33%) Medium (34-66%) -Necrotic Tissue Type Adherent Slough Adherent Slough -Texture (Haley-wound Skin Appearance) Assessed Assessed Assessed -Moisture (Haley-wound Skin Appearance) Assessed Assessed, Assessed Maceration -Color (Haley-wound Skin Appearance) Assessed Assessed Assessed -Temperature (Haley-wound Skin No Abnormality No Abnormality No Abnormality Appearance) (Pt Warm) (Pt Warm) (Pt Warm) -Tenderness on Palpation (Haley-wound No No No Skin Appearance) -Ulcer Cleansing Rinsed/ Soap and Water Soap and Water Irrigated with Saline -Foul Odor after Cleansing No -Anesthetic Used 5% Lidocaine 5% Lidocaine 5% Lidocaine Gel Gel Gel #1 RT MED ANKLE -Current Size (cm) - Length 1.1 0.9 0.1 -Current Size (cm) - Width 2.6 2.2 0.1 -Current Size (cm) - Depth 0.1 0.1 0.1 -Total Square Cm 2.86 1.98 0.01 -Photo Taken No No -Epithelialization -Tunneling No No -Undermining/Tunneling No No -Circular Undermining No No -Exudate Amt Medium Medium None Present -Exudate Type Serosanguineous Serosanguineous -Wound Margin Distinct, Distinct, Distinct, Outline Outline Outline Attached Attached Attached -Granulation Amt Medium (34-66%) Large (67-100%) Medium (34-66%) -Granulation Quality Red Red Red -Slough/Fibrin Yes Yes -Necrosis Amt Small (1-33%) Medium (34-66%) -Necrotic Tissue Type Adherent Slough Adherent Slough -Texture (Haley-wound Skin Appearance) Assessed Assessed Assessed -Moisture (Haley-wound Skin Appearance) Assessed Assessed, Assessed Maceration -Color (Haley-wound Skin Appearance) Assessed Assessed Assessed -Temperature (Haley-wound Skin No Abnormality No Abnormality No Abnormality Appearance) (Pt Warm) (Pt Warm) (Pt Warm) -Tenderness on Palpation (Haley-wound No No No Skin Appearance) -Ulcer Cleansing Rinsed/ Soap and Water Soap and Water Irrigated with Saline -Foul Odor after Cleansing No -Anesthetic Used 5% Lidocaine 5% Lidocaine 5% Lidocaine Gel Gel Gel Right Calf (cm) 52 51.6 Right Ankle (cm) 29.5 28.0 Left Calf (cm) 51 50.0 Left Ankle (cm) 28.6 27.4 02/13/24 02/20/24 10:31 10:22 Wound Center Nurse 1 #2 RT DORSAL FT -Combined with other wound -Current Size (cm) - Length -Current Size (cm) - Width -Current Size (cm) - Depth -Total Square Cm -Photo Taken -Tunneling -Undermining/Tunneling -Circular Undermining -Exudate Amt -Exudate Type -Wound Margin -Granulation Amt -Granulation Quality -Slough/Fibrin -Necrosis Amt -Necrotic Tissue Type -Texture (Haley-wound Skin Appearance) -Moisture (Haley-wound Skin Appearance) -Color (Haley-wound Skin Appearance) -Temperature (Haley-wound Skin Appearance) -Tenderness on Palpation (Haley-wound Skin Appearance) -Ulcer Cleansing -Foul Odor after Cleansing -Anesthetic Used #1 RT MED ANKLE -Current Size (cm) - Length 0.4 0.1 -Current Size (cm) - Width 0.3 0.1 -Current Size (cm) - Depth 0.1 0.1 -Total Square Cm 0.12 0.01 -Photo Taken -Epithelialization Large 67-100% -Tunneling -Undermining/Tunneling -Circular Undermining -Exudate Amt Small -Exudate Type Serosanguineous -Wound Margin Distinct, Outline Attached -Granulation Amt Large (67-100%) -Granulation Quality [place] -Slough/Fibrin -Necrosis Amt -Necrotic Tissue Type -Texture (Haley-wound Skin Appearance) Assessed Assessed, Scarring -Moisture (Haley-wound Skin Appearance) Dry/Scaly Assessed -Color (Haley-wound Skin Appearance) Assessed Assessed -Temperature (Haley-wound Skin No Abnormality Appearance) (Pt Warm) -Tenderness on Palpation (Haley-wound No No Skin Appearance) -Ulcer Cleansing Rinsed/ Rinsed/ Irrigated with Irrigated with Saline Saline -Foul Odor after Cleansing No -Anesthetic Used 5% Lidocaine Gel Right Calf (cm) 51.5 53 Right Ankle (cm) 29.5 30 Left Calf (cm) Left Ankle (cm) WC - Nurse 2 - General Ulcer CM Notes Start: 01/23/24 10:44 Freq: Status: Active Protocol: Activity Type Activity Date Activity User E-sign Co-sign Detail Recorded Client Recorded Date Recorded By Document 01/23/24 10:59 JF Laptop 01/23/24 11:04 JF Document 01/30/24 10:29 DS Desktop 01/30/24 10:35 DS Document 02/06/24 10:29 DS [id number] 02/06/24 10:34 DS Document 02/13/24 11:02 JF [id number] 02/13/24 11:05 Document 02/20/24 10:41 [id number] 02/20/24 10:42 01/23/24 01/30/24 02/06/24 10:59 10:29 10:29 Wound Center Nurse 2 #2 RT DORSAL FT -Time 11:02 10:29 10:30 -Correct Patient Yes Yes Yes -Correct Side, Site, Position Yes Yes Yes -Correct Procedure Yes Yes Yes -Procedure Performed Yes Yes -Type of Procedure Debridement Debridement Debridement -Clinical Debridement Subcutaneous Subcutaneous Subcutaneous -Tissue Removed Subcutaneous Subcutaneous Subcutaneous -Post Debridement (cm) - Length 0.8 0.5 0.1 -Post Debridement (cm) - Width 0.8 0.4 0.1 -Post Debridement (cm) - Depth 0.1 0.1 0.1 -Total Square (Post) (cm) 0.64 0.20 0.01 -Area of Debridement (cm) - Length 0.8 0.5 0.1 -Area of Debridement (cm) - Width 0.8 0.4 0.1 -Total Square (Area) (cm) 0.64 0.20 0.01 -Tunneling No No No -Undermining/Tunneling No No No -Circular Undermining No No No -Wound/Ulcer Outcome Not Healed Not Healed Not Healed -Ulcer Cleansing Rinsed/ Rinsed/ Irrigated with Irrigated with Saline Saline -Foul Odor after Cleansing No -Bioengineered Tissue No -Bleeding Controlled with Pressure Pressure Pressure -Treatment Response Procedure Procedure Procedure Tolerated Well Tolerated Well Tolerated Well -Offloading No No -Debridement - Subq, 1st 20sq cm Yes Yes Yes #1 RT MED ANKLE -Time 11:03 10:31 10:30 -Correct Patient Yes Yes Yes -Correct Side, Site, Position Yes Yes Yes -Correct Procedure Yes Yes Yes -Procedure Performed Yes Yes Yes -Type of Procedure Debridement Debridement Debridement -Clinical Debridement Subcutaneous Subcutaneous Subcutaneous -Tissue Removed Subcutaneous Subcutaneous Subcutaneous -Post Debridement (cm) - Length 2.8 1.9 0.7 -Post Debridement (cm) - Width 0.9 0.7 1.5 -Post Debridement (cm) - Depth 0.1 0.1 0.1 -Total Square (Post) (cm) 2.52 1.33 1.05 -Area of Debridement (cm) - Length 2.8 1.9 0.7 -Area of Debridement (cm) - Width 0.9 0.7 1.5 -Total Square (Area) (cm) 2.52 1.33 1.05 -Tunneling No No No -Undermining/Tunneling No No No -Circular Undermining No No No -Wound/Ulcer Outcome Not Healed Not Healed -Ulcer Cleansing Rinsed/ Rinsed/ Rinsed/ Irrigated with Irrigated with Irrigated with Saline Saline Saline -Foul Odor after Cleansing No -Bioengineered Tissue No -Bleeding Controlled with Pressure Pressure Pressure -Treatment Response Procedure Procedure Procedure Tolerated Well Tolerated Well Tolerated Well -Offloading No No -Debridement - Subq, 1st 20sq cm No No No Pain Scale: 0-10 Numeric Is Patient Pain Free? Yes Yes Yes 02/13/24 02/20/24 11:02 10:41 Wound Center Nurse 2 #2 RT DORSAL FT -Time -Correct Patient -Correct Side, Site, Position -Correct Procedure -Procedure Performed -Type of Procedure -Clinical Debridement -Tissue Removed -Post Debridement (cm) - Length -Post Debridement (cm) - Width -Post Debridement (cm) - Depth -Total Square (Post) (cm) -Area of Debridement (cm) - Length -Area of Debridement (cm) - Width -Total Square (Area) (cm) -Tunneling -Undermining/Tunneling -Circular Undermining -Wound/Ulcer Outcome -Ulcer Cleansing -Foul Odor after Cleansing -Bioengineered Tissue -Bleeding Controlled with -Treatment Response -Offloading -Debridement - Subq, 1st 20sq cm #1 RT MED ANKLE -Time 11:02 -Correct Patient Yes No -Correct Side, Site, Position Yes No -Correct Procedure Yes No -Procedure Performed Yes No -Type of Procedure Debridement -Clinical Debridement Subcutaneous -Tissue Removed Subcutaneous -Post Debridement (cm) - Length 0.3 0 -Post Debridement (cm) - Width 0.5 0 -Post Debridement (cm) - Depth 0.1 0 -Total Square (Post) (cm) 0.15 0 -Area of Debridement (cm) - Length 0.3 0 -Area of Debridement (cm) - Width 0.5 0 -Total Square (Area) (cm) 0.15 0 -Tunneling No -Undermining/Tunneling No -Circular Undermining No -Wound/Ulcer Outcome Not Healed Healed- Epithelialized -Ulcer Cleansing Rinsed/ Irrigated with Saline -Foul Odor after Cleansing No -Bioengineered Tissue No -Bleeding Controlled with Pressure -Treatment Response Procedure Tolerated Well -Offloading No -Debridement - Subq, 1st 20sq cm Yes Pain Scale: 0-10 Numeric Is Patient Pain Free? Yes Yes - Nurse 3 - General Ulcer D/C NN Start: 01/23/24 10:44 Freq: Status: Active Protocol: Activity Type Activity Date Activity User E-sign Co-sign Detail Recorded Client Recorded Date Recorded By Document 01/23/24 11:07 Desktop 01/23/24 11:08 Document 01/30/24 10:49 Desktop 01/30/24 10:50 Document 02/06/24 10:45 [id number] 02/06/24 10:46 Document 02/13/24 11:20 wound center 02/13/24 11:21 Document 02/20/24 10:58 [facility] 02/20/24 10:59 01/23/24 01/30/24 02/06/24 11:07 10:49 10:45 Wound Care Center Nurse 3 #2 RT DORSAL FT -Ulcer Cleansing Not Cleansed -Primary Dressing Applied Promogran Promogran Yun Matter Yun Matter -Primary Dressing Covered/Secured with Dry Gauze & Dry Gauze,Dry Roll Gauze, Gauze & Roll Secured with Gauze,Secured Tape with Tape -Promogran Yun Matter 1 1 #1 RT MED ANKLE -Ulcer Cleansing Not Cleansed Rinsed/ Irrigated with Saline -Foul Odor after Cleansing No No -Primary Dressing Applied -Other Dressing used remainder hydrogel of yun -Primary Dressing Covered/Secured with Dry Gauze Dry Gauze, Secured with Tape -Promogran Yun Matter Left -Lotion applied to leg before No compression wrap -Multi-Layered Wrap Application Multi-Layer Comp - Bilat ($ ) -Tubular Bandage Single Layer Double Layer -Size of Tubigrip Used Size F Size F -Size F ($) 1 2 Right -Lotion applied to leg before compression wrap -Tubular Bandage Single Layer Double Layer -Size of Tubigrip Used Size F Size F -Size F ($) 1 2 Pain Scale: 0-10 Numeric Is Patient Pain Free? Yes Yes Yes Teaching: Wound Center compression -Person Taught Patient -Teaching Method Discussion -Response to teaching Verbalize understanding WC - Visit Discharge Discharge Condition Stable Stable Stable Ambulatory Status Ambulatory Ambulatory Ambulatory Transportation Private Auto Private Auto Private Auto Medication Reconcilliation completed & No Yes provided to patient/care provider Clinical Summary of Care Provided Yes Yes Yes 02/13/24 02/20/24 11:20 10:58 Wound Care Center Nurse 3 #2 RT DORSAL FT -Ulcer Cleansing -Primary Dressing Applied -Primary Dressing Covered/Secured with -Promogran Yun Matter #1 RT MED ANKLE -Ulcer Cleansing Not Cleansed -Foul Odor after Cleansing No -Primary Dressing Applied Promogran Yun Matter -Other Dressing -Primary Dressing Covered/Secured with Dry Gauze,Dry Gauze & Roll Gauze,Secured with Tape -Promogran Yun Matter 1 Left -Lotion applied to leg before compression wrap -Multi-Layered Wrap Application -Tubular Bandage -Size of Tubigrip Used -Size F ($) Right -Lotion applied to leg before No No compression wrap -Tubular Bandage Double Layer Double Layer -Size of Tubigrip Used Size F Size F -Size F ($) 2 2 Pain Scale: 0-10 Numeric Is Patient Pain Free? Yes Yes Teaching: Wound Center compression -Person Taught -Teaching Method -Response to teaching WC - Visit Discharge Discharge Condition Stable Stable Ambulatory Status Ambulatory, Walker Transportation Private Auto Private Auto Medication Reconcilliation completed & provided to patient/care provider Clinical Summary of Care Provided Yes Yes Assessment/Plan Assessment/Plan (1) Non-pressure chronic ulcer of right ankle with fat layer exposed: CODE(S): L97.312 - Non-pressure chronic ulcer of right ankle with fat layer exposed PLAN: Patient was examined and evaluated. All findings were discussed with the patient. All questions were answered to the patient's satisfaction. The patient's right ankle full-thickness ulceration is now healed. Patient will be given a prescription for compression stockings 20 to 30 mmHg to be sized and measured at his local retail pharmacy [facility] [place] or [facility]. It was educated the patient that he needs to be in constant compression as he is at risk for further breakdown. He was understanding of this. Patient will follow-up at the wound care center as needed. (2) Other specified peripheral vascular diseases: CODE(S): I73.89 - Other specified peripheral vascular diseases
--- NOTE | 2024-02-21 12:13 | WC ---
02/20/2024 RIGHT MEDIAL ANKLE
== END 2024-02-21 15:45 | disposition home or self-care (01) ==
LOC: WC 10:30
PROVIDERS: PCP Preventive Medicine Occupational Medicine; Referring Provider Student in an Organized Health Care Education/Training Program; Visit Provider Podiatrist Foot & Ankle Surgery
DX: E11.621 Type 2 diabetes mellitus with foot ulcer (principal); L97.312 Non-pressure chronic ulcer of right ankle with fat layer exposed; L97.512 Non-pressure chronic ulcer of other part of right foot with fat layer exposed; Z79.4 Long term (current) use of insulin; E11.51 Type 2 diabetes mellitus with diabetic peripheral angiopathy without gangrene; R60.0 Localized edema; Z79.51 Long term (current) use of inhaled steroids; Z79.82 Long term (current) use of aspirin; Z79.84 Long term (current) use of oral hypoglycemic drugs; Z79.899 Other long term (current) drug therapy; Z79.85 Long-term (current) use of injectable non-insulin antidiabetic drugs; Z87.891 Personal history of nicotine dependence
CPT/HCPCS: 11042; 29581; 93923; 93970; 99213; G0463

== ENCOUNTER 2024-05-06 10:06 | Inpatient (IN) | payer MEDICARE, SELFPAY ==
[2024-05-06] VITALS (11 sets, daily range): BP systolic 101–138; BP diastolic 49–85; PULSE 98–111; RESP 18–24; TEMP 36.1–37.1; O2SAT 77–100; BMI 49.4; BMI 48.9
--- NOTE | 2024-05-06 10:35 | CT_ITS ---
STUDY: CTA CHEST REASON FOR EXAM: Male, 73 years old. pulmonary embolism RADIATION DOSAGE (If Supplied By Facility): CTDIvol = ( 13.85 ) mGy, DLP = ( 619.80 ) mGycm TECHNIQUE: The examination was performed with the intravenous administration of IV 100mL Isovue-370. Post-processing of the angiographic images was performed, with multiplanar reformation and 3D reconstruction. Individualized dose optimization techniques were used for this CT. COMPARISON: PET/CT of the chest abdomen and pelvis dated January 29, 2024 FINDINGS: * Partially occlusive thrombi/emboli are present in the secondary peripheral arterial branches of the bilateral pulmonary artery supplying the bilateral lower lobes as well as the lingula and right middle lobe. The main bilateral pulmonary arteries in the pulmonary trunk are normal. * No saddle embolus is present. No demonstrated heart strain or cardiac enlargement or pericardial effusion. * Multilobular masses with secondary consolidation are present in the inferior aspect of the right upper lobe and in the right hilar region maximally measuring 5.76 x 3.46 cm. Wedge-shaped area of consolidation of the periphery of the right upper lobe measures 4.85 cm. The right hilar mass has moderately enlarged since the prior study of January 29, 2024. * The pleural effusion, pulmonary artery emboli, and post obstructive consolidation of the right lung are all new findings since the January 29, 2024 study. * Moderate right lower lobe consolidation is present * Cystic emphysematous changes and hyperinflation and interstitial thickening of both lungs redemonstrated * No visualized primary or metastatic lesions of the left lung * A moderate-sized right pleural effusion is present with partial loculation of the pleural fluid. There is atherosclerotic calcification of the aortic arch with tortuosity. There is no demonstrated aortic dissection. Sternal cerclage wires and vascular clips are present from a prior sternotomy and coronary artery bypass graft procedure (CABG). There are calcifications of the coronary arteries. Normal heart size. Normal mediastinum. Normal visualized trachea and bronchi. Normal chest wall structures. There are degenerative changes of thoracic spine. No visualized lytic or blastic lesions of the bony structures. Included upper abdomen: Multiple gallstones are present. Chronic medical renal disease with atrophy and cortical thinning and mild perinephric stranding. A small cyst is seen in the anterior aspect of the right kidney. This does not requiring additional imaging. Stable remaining upper abdominal structures. CT/CTA Chest W/WO Contrast IMPRESSION: 1. Partially occlusive thrombi/emboli are present in the secondary peripheral arterial branches of the bilateral pulmonary artery supplying the bilateral lower lobes as well as the lingula and right middle lobe. The main bilateral pulmonary arteries in the pulmonary trunk are normal. 2. No saddle embolus is present. No demonstrated heart strain or cardiac enlargement or pericardial effusion. 3. Multilobular masses with secondary consolidation are present in the inferior aspect of the right upper lobe and in the right hilar region maximally measuring 5.76 x 3.46 cm. Wedge-shaped area of consolidation of the periphery of the right upper lobe measures 4.85 cm. The right hilar mass has moderately enlarged since the prior study of January 29, 2024. 4. The pleural effusion, pulmonary artery emboli, and post obstructive consolidation of the right lung are all new findings since the January 29, 2024 study. 5. A moderate-sized right pleural effusion is present with partial loculation of the pleural fluid. Electronically Signed: Maxwell Vogel MD at 11:59 EDT ,
--- NOTE | 2024-05-06 10:36 | EDS_ITS ---
HPI History of Present Illness Chief Complaint: Shortness of Breath Informant: patient Narrative Narrative: 73-year-old male history of coronary artery disease status post CABG, COPD, diabetes, and recently diagnosed lung cancer presenting to the emergency room wi a chief complaint of dyspnea. Patient states for the past week and a half that increased shortness of breath. He visited with oncology yesterday. He states that over the past week and a half he has struggled for about 30 minutes to get phlegm up. He notes that he has a concentrator of oxygen at home but has been utilizing it with an extensive amount of tubing. He states he feels better with a shorter hose here in the emergency department. He denies any fever. No hemoptysis. He denies any history of DVT or PE. He has not been using his nebulizers at home. He was unsure if he can take it with his inhalers. Patient denies any increase in lower extremity swelling. He does not note his heart rate typically is. He denies palpitations or chest pain. [facility] Medical History COPD (chronic obstructive pulmonary disease) Former smoker Diabetes Home Medications ?Medication ?Instructions ?Recorded ?Last Taken ?Type albuterol sulfate 2.5 mg/3 mL 2.5 mg inhalation Q6H PRN 05/02/18 05/06/24 Hist ory (0.083 %) solution for nebulization shortness of breath or wheezing aspirin 81 mg tablet,delayed 81 mg PO DAILY 05/02/18 05/06/24 History release furosemide 40 mg tablet 40 mg PO BID 05/02/18 05/06/24 History metformin 1,000 mg tablet 1,000 mg PO BID 05/02/18 05/06/24 History metoprolol tartrate 25 mg tablet 25 mg PO DAILY 05/02/18 05/06/24 History simvastatin 80 mg tablet 80 mg PO QHS 05/02/18 05/05/24 History insulin human U-100 NPH-regulr See Protocol subcut BID 08/07/18 05/05/24 History 70-30 mix 100 unit/mL subcutaneous susp (Novolin 70/30 U-100 Insulin) albuterol sulfate 90 mcg/actuation 2 puff inhalation Q4H PRN 02/05/19 05/06/24 Rx aerosol inhaler (Ventolin HFA) shortness of breath or wheezing #18 grams losartan 50 mg tablet 50 mg PO DAILY 10/28/20 05/06/24 History terbinafine HCl 250 mg tablet 250 mg PO DAILY 02/14/21 05/06/24 History Symbicort 80 mcg-4.5 mcg/actuation 2 inh inhalation BID #3 ea 05/05/24 05/06/24 Rx HFA aerosol inhaler (budesonide-formoterol) cetirizine 10 mg tablet 10 mg PO DAILY 05/06/24 05/06/24 History clobetasol 0.05 % topical cream 1 applic topical BID 05/06/24 05/06/24 History hydroxyzine HCl 25 mg tablet 25 mg PO QHS 05/06/24 05/05/24 History semaglutide 2 mg/dose (8 mg/3 mL) 2 mg subcut TH 05/06/24 05/01/24 History subcutaneous pen injector (Ozempic) tiotropium bromide 18 mcg capsule 1 cap inhalation DAILY 05/06/24 05/06/24 History with inhalation device (Spiriva with HandiHaler) Allergy/AdvReac Type Severity Reaction Status Date / Time No Known Allergies Allergy Verified 05/06/24 10:06 Family History Father Heart disease Diabetes Brother Cancer Throat Grandmother Breast cancer Surgical History Hx of heart artery stent S/P CABG x 3 Social History Smoking Status: Former smoker pack-years: 55 Tobacco: How many years used: 35 how long ago did patient quit smokin second hand exposure: Yes alcohol intake: current alcohol intake frequency: holidays/special occasions only Alcohol type: beer substance use type: does not use caffeine: Yes what type of physical activity do you participate in: none ROS ROS ED Constitutional Constitutional ED: Denies chills, fever(s) or weight loss Eyes Eyes: Denies change in vision or diplopia ENT ENT ED: Denies ear pain, rhinorrhea or sore throat Cardiovascular Cardiovascular: Denies chest pain, orthopnea, palpitations or racing heartbeat Respiratory/Chest Respiratory/Chest: Reports cough, dyspnea, dyspnea on exertion and sputum; Denies orthopnea Gastrointestinal Gastrointestinal: Denies abdominal pain, diarrhea, nausea or vomiting Genitourinary Genitourinary ED: Denies dysuria, hematuria or urinary frequency Musculoskeletal Musculoskeletal: Denies arthralgias or myalgias Integumentary Denies abscess or rash Neurologic Neurologic: Denies headache(s) or weakness Psychiatric Psychiatric: Denies anxiety, depression, suicidal ideation or suicidal thoughts Endocrine Endocrinology: Denies polydipsia, polyphagia or polyuria Allergic/Immunologic Allergic/Immunologic ED: Denies mouth swelling, tongue swelling or urticaria EXAM Physical Exam Const Vital Signs: 05/06/24 10:06 05/06/24 10:09 05/06/24 10:29 Temperature 97.1 F L 97.1 F L Temperature Source Temporal Temporal Pulse Rate 111 H 111 H Respiratory Rate 24 H 24 H Respiratory Effort Short of Breath Respiratory Pattern Tachypnea Blood Pressure 117/69 117/69 Blood Pressure Mean 85 85 Pulse Ox 88 88 Oxygen Delivery Method Room Air Room Air Room Air Oxygen Flow Rate (L/min) 05/06/24 10:39 05/06/24 10:50 05/06/24 10:50 Temperature Temperature Source Pulse Rate 110 H Respiratory Rate 20 H Respiratory Effort Respiratory Pattern Blood Pressure Blood Pressure Mean Pulse Ox 95 Oxygen Delivery Method Room Air Nasal Cannula Oxygen Flow Rate (L/min) 2 05/06/24 11:09 05/06/24 12:00 Temperature 96.9 F L 98.6 F Temperature Source Temporal Oral Pulse Rate 103 H 107 H Respiratory Rate 19 H 22 H Respiratory Effort Respiratory Pattern Blood Pressure 124/49 H 135/70 H Blood Pressure Mean 74 91 Pulse Ox 94 97 Oxygen Delivery Method Nasal Cannula Nasal Cannula Oxygen Flow Rate (L/min) 2 2 Positive well nourished, well developed and obese General Appearance ED: well developed and NAD Nutritional Appearance: obese HEENT Reports normocephalic, head/scalp atraumatic and moist mucous membranes Eyes PERRL and EOMs intact bilaterally Neck no lymphadenopathy, supple and no JVD Resp Resp Narrative: Patient has conversational dyspnea. He has decreased breath sounds bilaterally with expiratory wheeze. He has a rhonchorous cough. Cardio regular rate, regular rhythm and no murmurs Rate: tachycardic GI normal to inspection, nondistended, normoactive bowel sounds and non-tender Palpation: soft Back/Spine no CVA tenderness and normal ROM Extremity General Extremety ED: Yes edema General Extremity: edema bilateral lower extremity Details: mild Neuro oriented x3 and CN's II-XII intact bilaterally Sensorium / Orientation: alert Motor Exam: strength 5/5 throughout Psych mental status grossly normal Mood & Affect: Negative for depressed or tearful Skin no rashes or lesions noted and no wounds MDM MDM MDM Narrative Medical decision making narrative: Differential diagnosis includes PE acute coronary syndrome sepsis pneumonia pleural effusion pneumothorax lung cancer aortic dissection renal dysfunction White count 13.8 creatinine 1.20 with a BUN of 25 anion gap of 9. Glucose 243. CTA of the chest was obtained which demonstrates bilateral pulmonary embolism pleural effusion postobstructive pneumonia lung cancer. EKG is normal sinus rhythm with a rate of 99. Blood cultures were obtained. Patient received breathing treatment Solu-Medrol Rocephin and azithromycin. He continued to receive supplemental oxygen. Additional labs were ordered including lactic acid liver coags troponin. I will speak with the hospitalist regarding admission. Dr. Borges conferred with pulmonology. Patient will be started on heparin drip in anticipation of thoracentesis. History & Record Review Discussion w/independent historian: Patient Additional record(s) reviewed:: Prior inpatient record, Prior outpatient record, Prior ED visit and Prior labs Lab Data Attestation: I reviewed the patient's lab results. Labs: Laboratory Results - last 24 hr 05/06/24 05/06/24 10:20 12:05 WBC 13.8 H RBC 4.06 L Hgb 12.5 L Hct 37.6 L MCV 92.6 MCH 30.8 MCHC 33.2 RDW Std Deviation 43.4 RDW Coeff of Ino 12.7 Plt Count 253 MPV 9.2 Immature Gran % (Auto) 1.500 H Neut % (Auto) 72.6 H Lymph % (Auto) 8.9 L Wagoner % (Auto) 10.4 H Eos % (Auto) 6.0 H Baso % (Auto) 0.6 Absolute Neuts (auto) 10.0 H Absolute Lymphs (auto) 1.22 Nucleated RBC % 0 PT 16.2 H INR 1.3 APTT 30.2 Sodium 132 L Potassium 5.5 H Chloride 100 Carbon Dioxide 23.0 Anion Gap 9 BUN 25 H Creatinine 1.20 Estim Creat Clear Calc 84.91 Est GFR (MDRD) Af Amer 77 Est GFR (MDRD) Non-Af 63 BUN/Creatinine Ratio 20.8 H Glucose 243 H Calcium 8.9 Radiography Diagnostic Testing: Clinical Impression(s) from Imaging Studies Chest CTA 05/06/24 10:35 IMPRESSION: 1. Partially occlusive thrombi/emboli are present in the secondary peripheral arterial branches of the bilateral pulmonary artery supplying the bilateral lower lobes as well as the lingula and right middle lobe. The main bilateral pulmonary arteries in the pulmonary trunk are normal. 2. No saddle embolus is present. No demonstrated heart strain or cardiac enlargement or pericardial effusion. 3. Multilobular masses with secondary consolidation are present in the inferior aspect of the right upper lobe and in the right hilar region maximally measuring 5.76 x 3.46 cm. Wedge-shaped area of consolidation of the periphery of the right upper lobe measures 4.85 cm. The right hilar mass has moderately enlarged since the prior study of January 29, 2024. 4. The pleural effusion, pulmonary artery emboli, and post obstructive consolidation of the right lung are all new findings since the January 29, 2024 study. 5. A moderate-sized right pleural effusion is present with partial loculation of the pleural fluid. Electronically Signed: Maxwell Vogel MD at 11:59 EDT , EKG Initial EKG: Attestation: I personally reviewed and interpreted this EKG as follows: Comments: Normal sinus rhythm ventricular rate of 99 bpm Management Discussion w/another healthcare provider: Hospitalist Discharge Plan Dx/Rx/DC Orders Clinical Impression: COPD (chronic obstructive pulmonary disease), Adenocarcinoma of right lung, Pneumonia, Pleural effusion, Pulmonary embolism, Acute hypoxemic respiratory failure Disposition Disposition: Acute Care [facility]
[2024-05-06 10:41] LABS: Absolute Lymphocyte Count 1.22 X10^3/uL (0.83-4.51); Basophil# 0.08 X10^3/uL; Basophil% 0.6 % (0-1); Eosinophil# 0.82 X10^3/uL; Hematocrit 37.6 % (40-54); Hemoglobin 12.5 g/dL (13.0-16.5); Lymphocyte # 1.22 X10^3/ul (0.83-4.51); Lymphocyte % 8.9 % (19-41); Mean Corp Hgb Conc 33.2 g/dL (32-36); Mean Corpuscular Hgb 30.8 pg (27.0-32.0); Mean Corpuscular Volume 92.6 fL (80-94); Mean Platelet Vol. 9.2 fl (6.2-12.0); Monocyte# 1.43 X10^3/uL; Monocyte% 10.4 % (0-10); NRBC Flagged by Analyzer 0 % (0-5); Neutrophil # 10.02 X10^3/uL (2.7-7.7); Neutrophil % 72.6 % (47-70); Platelet Count 253 K/mm3 (150-450); RBC Distribution Width CV 12.7 % (11.6-14.6); RBC Distribution Width SD 43.4 fl (35.1-43.9); Red Blood Count 4.06 M/mm3 (4.6-6.2); White Blood Count 13.8 K/mm3 (4.4-11.0)
[2024-05-06] MEDS: Ipratropium/Albuterol Sulfate 3 ML AMPUL.NEB INHALATION ×2 (10:41→20:02)
[2024-05-06] MEDS: Albuterol 2.5 MG/3 ML VIAL.NEB. INHALATION (10:41)
[2024-05-06] MEDS: MethylPREDNISolone 125 MG/2 ML Vial IV (10:45)
[2024-05-06 11:19] LABS: Anion Gap 9 (5-15); BUN 25 mg/dL (7-18); BUN/Creat Ratio 20.8 RATIO (10-20); Calcium,Total 8.9 mg/dL (8.5-10.1); Chloride 100 mmol/L (98-107); EST Glomerular Filtration Rate 63 mL/min (>60); Est Glom Filt Rate - Afr Amer 77 mL/min (>60); Estimated Creatinine Clearance 84.91 ml/min; Glucose 243 mg/dL (74-106); Potassium 5.5 mmol/L (3.5-5.1); Sodium Level 132 mmol/L (136-145)
[2024-05-06] MEDS: Ceftriaxone 1 GM/50 ML BAG IV (12:19)
[2024-05-06 12:25] LABS: International Normalized Ratio 1.3; Prothrombin Time (Protime)PT. 16.2 SECONDS (11.7-14.9)
[2024-05-06 12:26] LABS: Partial Thromboplast Time 30.2 Seconds (24.1-36.2)
--- NOTE | 2024-05-06 12:50 | PCM.HP.STD ---
HPI - General General Date of Admission: 05/06/24 Date of Service: 05/06/24 Chief Complaint: Worsening shortness of breath HPI Narrative ALEKS COSTELLO, is a 73 M who presented to [facility] ED on 05/06/2024 with worsening shortness of breath. Patient was recently diagnosed with adenocarcinoma of the right lung. Has seen pulmonology, oncology and radiation oncology in the office since mid March. Current plan from oncology is for chemotherapy and radiation treatment. Patient had consultation for port placement tomorrow 05/07 and was planned for weekly Taxol and carboplatin chemotherapy with radiation. Unfortunately, patient developed worsening shortness of breath on exertion over the past few days. CTA chest on admit showed partially occlusive thrombi/emboli present in the secondary peripheral arterial branches of the bilateral pulmonary arteries, no saddle embolus present, no demonstrated heart strain or cardiac enlargement; also showed multilobular masses in the right upper lobe and right hilar region with moderate right-sided pleural effusion and postobstructive consolidation noted. Was hypoxic with exertion in the ED. Given these findings, hospitalist was contacted for admission. I discussed patient's case over the phone with Dr. Victor with pulmonology prior to admission. He looked at patient's scan and noted that the effusion did not appear significantly loculated and noted that we could initially treat with diagnostic/therapeutic thoracentesis and IV antibiotics along with a heparin drip for the PE. I saw the patient at bedside in the ED. He was breathing comfortably on 2 L nasal cannula at rest with oxygen saturations in the low 90s. He did report ongoing right-sided lower chest pain that is also been present along with the dyspnea with exertion. He denies any fevers or chills. Has had a cough but with minimal sputum production. He had sinus tachycardia to around 110 in the ED but was otherwise hemodynamically stable. No other acute concerns at this time. [facility] Medical History COPD (chronic obstructive pulmonary disease) Former smoker Diabetes Home Medications ?Medication ?Instructions ?Recorded ?Last Taken ?Type albuterol sulfate 2.5 mg/3 mL 2.5 mg inhalation Q6H PRN 05/02/18 05/06/24 History (0.083 %) solution for nebulization shortness of breath or wheezing aspirin 81 mg tablet,delayed 81 mg PO DAILY 05/02/18 05/06/24 History release furosemide 40 mg tablet 40 mg PO BID 05/02/18 05/06/24 History metformin 1,000 mg tablet 1,000 mg PO BID 05/02/18 05/06/24 History metoprolol tartrate 25 mg tablet 25 mg PO DAILY 05/02/18 05/06/24 History simvastatin 80 mg tablet 80 mg PO QHS 05/02/18 05/05/24 History insulin human U-100 NPH-regulr 1 sliding scale dose subcut BID 08/07/18 05/05/24 History 70-30 mix 100 unit/mL subcutaneous susp (Novolin 70/30 U-100 Insulin) albuterol sulfate 90 mcg/actuation 2 puff inhalation Q4H PRN 02/05/19 05/06/24 Rx aerosol inhaler (Ventolin HFA) shortness of breath or wheezing #18 grams losartan 50 mg tablet 50 mg PO DAILY 10/28/20 05/06/24 History terbinafine HCl 250 mg tablet 250 mg PO DAILY 02/14/21 05/06/24 History Symbicort 80 mcg-4.5 mcg/actuation 2 inh inhalation BID #3 ea 05/05/24 05/06/24 Rx HFA aerosol inhaler (budesonide-formoterol) cetirizine 10 mg tablet 10 mg PO DAILY 05/06/24 05/06/24 History clobetasol 0.05 % topical cream 1 applic topical BID 05/06/24 05/06/24 History hydroxyzine HCl 25 mg tablet 25 mg PO QHS 05/06/24 05/05/24 History semaglutide 2 mg/dose (8 mg/3 mL) 2 mg subcut TH 05/06/24 05/01/24 History subcutaneous pen injector (Ozempic) tiotropium bromide 18 mcg capsule 1 cap inhalation DAILY 05/06/24 05/06/24 History with inhalation device (Spiriva with HandiHaler) Allergy/AdvReac Type Severity Reaction Status Date / Time No Known Allergies Allergy Verified 05/06/24 10:06 Family History Father Heart disease Diabetes Brother Cancer Throat Grandmother Breast cancer Surgical History Hx of heart artery stent S/P CABG x 3 Social History Smoking Status: Former smoker pack-years: 55 Tobacco: How many years used: 35 how long ago did patient quit smokin second hand exposure: Yes alcohol intake: current alcohol intake frequency: holidays/special occasions only Alcohol type: beer substance use type: does not use caffeine: Yes what type of physical activity do you participate in: none ROS Constitutional Constitutional: Reports fatigue; Denies chills, fever(s) or weakness Eyes Eyes: Denies change in vision Cardiovascular Cardiovascular: Reports chest pain and dyspnea on exertion; Denies lightheadedness, palpitations, rapid heart rate or syncope Respiratory/Chest Respiratory/Chest: Reports cough; Denies productive cough, shortness of breath at rest or wheezing Gastrointestinal Gastrointestinal: Denies abdominal pain, constipation, diarrhea, nausea or vomiting Musculoskeletal Musculoskeletal: Denies arthralgias or myalgias Neurologic Neurologic: Denies dizziness, focal weakness or headache(s) Vital Signs Vital Signs Vital Signs: 05/06/24 10:06 05/06/24 10:09 05/06/24 10:29 Temperature 97.1 F L 97.1 F L Temperature Source Temporal Temporal Pulse Rate 111 H 111 H Respiratory Rate 24 H 24 H Respiratory Effort Short of Breath Respiratory Pattern Tachypnea Blood Pressure 117/69 117/69 Blood Pressure Mean 85 85 Pulse Ox 88 88 Oxygen Delivery Method Room Air Room Air Room Air Oxygen Flow Rate (L/min) 05/06/24 10:39 05/06/24 10:50 05/06/24 10:50 Temperature Temperature Source Pulse Rate 110 H Respiratory Rate 20 H Respiratory Effort Respiratory Pattern Blood Pressure Blood Pressure Mean Pulse Ox 95 Oxygen Delivery Method Room Air Nasal Cannula Oxygen Flow Rate (L/min) 2 05/06/24 11:09 05/06/24 12:00 Temperature 96.9 F L 98.6 F Temperature Source Temporal Oral Pulse Rate 103 H 107 H Respiratory Rate 19 H 22 H Respiratory Effort Respiratory Pattern Blood Pressure 124/49 H 135/70 H Blood Pressure Mean 74 91 Pulse Ox 94 97 Oxygen Delivery Method Nasal Cannula Nasal Cannula Oxygen Flow Rate (L/min) 2 2 Weight Weight: 156.3 kg Body Mass Index (BMI) 49.4 Physical Exam Const alert, oriented x3 and no apparent distress Constitutional Narrative: Pleasant elderly male, morbidly obese, mildly fatigued appearing, otherwise sitting up comfortably in bed, conversing normally, in no acute distress. General Appearance: cooperative and comfortable HEENT normocephalic, head/scalp atraumatic, hearing grossly normal bilaterally, nasal mucous membranes and turbinates normal and moist oral mucous membranes Eyes PERRL, EOMs intact bilaterally and conjunctivae normal Neck full ROM Chest inspection of chest normal Resp normal respiratory effort and no use of accessory muscles Resp Narrative: Breathing comfortably on 2 L nasal cannula at rest. Diminished breath sounds bilaterally, worse on right. No wheezing or crackles noted. Cardio no murmurs and peripheral pulses 2+ throughout Cardio Narrative: Tachycardic, regular rhythm. GI normal to inspection, nondistended, normoactive bowel sounds, soft to palpation, non-tender and non-distended Back/Spine normal ROM Extremity normal to inspection, full ROM and no pedal edema Skin no rashes or lesions noted Neuro moves all extremities and no focal motor deficits Speech: speech normal Psych mental status grossly normal Results Lab / Micro Data 05/06/24 10:20 05/06/24 10:20 Labs: Laboratory Results - last 24 hr 05/06/24 10:20: WBC 13.8 H, RBC 4.06 L, Hgb 12.5 L, Hct 37.6 L, MCV 92.6, MCH 30.8, MCHC 33.2, RDW Std Deviation 43.4, RDW Coeff of Ino 12.7, Plt Count 253, MPV 9.2, Immature Gran % (Auto) 1.500 H, Neut % (Auto) 72.6 H, Lymph % (Auto) 8.9 L, Mcintosh % (Auto) 10.4 H, Eos % (Auto) 6.0 H, Baso % (Auto) 0.6, Absolute Neuts (auto) 10.0 H, Absolute Lymphs (auto) 1.22, Nucleated RBC % 0, Sodium 132 L, Potassium 5.5 H, Chloride 100, Carbon Dioxide 23.0, Anion Gap 9, BUN 25 H, Creatinine 1.20, Estim Creat Clear Calc 84.91, Est GFR (MDRD) Af Amer 77, Est GFR (MDRD) Non-Af 63, BUN/Creatinine Ratio 20.8 H, Glucose 243 H, Calcium 8.9 05/06/24 12:05: PT 16.2 H, INR 1.3, APTT 30.2 Imaging Radiology Impression Chest CTA 05/06/24 10:35 IMPRESSION: 1. Partially occlusive thrombi/emboli are present in the secondary peripheral arterial branches of the bilateral pulmonary artery supplying the bilateral lower lobes as well as the lingula and right middle lobe. The main bilateral pulmonary arteries in the pulmonary trunk are normal. 2. No saddle embolus is present. No demonstrated heart strain or cardiac enlargement or pericardial effusion. 3. Multilobular masses with secondary consolidation are present in the inferior aspect of the right upper lobe and in the right hilar region maximally measuring 5.76 x 3.46 cm. Wedge-shaped area of consolidation of the periphery of the right upper lobe measures 4.85 cm. The right hilar mass has moderately enlarged since the prior study of January 29, 2024. 4. The pleural effusion, pulmonary artery emboli, and post obstructive consolidation of the right lung are all new findings since the January 29, 2024 study. 5. A moderate-sized right pleural effusion is present with partial loculation of the pleural fluid. Electronically Signed: Maxwell Vogel MD at 11:59 EDT , Assessment & Plan Assessment/Plan (1) Pulmonary embolism: (2) Pleural effusion: (3) Pneumonia: (4) Adenocarcinoma of right lung: (5) Hypoxia: PLAN: Plan Patient is a 73-year-old male who presented [facility] ED on 05/06/2024 with worsening shortness of breath. 1. Bilateral PE (low risk) with acute hypoxia, mild COPD exacerbation, recently diagnosed right lung adenocarcinoma, suspected postobstructive pneumonia with moderate right pleural effusion ? Admit under inpatient status to PCU. Pulmonology consulted. CTA chest on admit showed peripheral bilateral PE with no saddle embolus and no heart strain; also showed moderate right pleural effusion with RLL consolidation in setting of recently diagnosed right lung adenocarcinoma. Acute hypoxia requiring 2 to 4 L nasal cannula to maintain oxygen saturations on admission. Will treat for pneumonia and COPD exacerbation with IV antibiotics, IV steroids and scheduled DuoNebs. Continue home long-acting inhalers. Radiology consulted for diagnostic and therapeutic thoracentesis. Heparin drip for PE. Echo ordered. Following outpatient with oncology, will need to reschedule port placement and timing of starting chemotherapy and radiation due to this hospitalization. 2. Mild hyponatremia ? Sodium 132 on admit, no prior baseline available. Holding on either IV fluid resuscitation or diuresis for now. Monitor daily sodium. 3. Mild hyperkalemia ? Potassium 5.5 on admit, no baseline available. No EKG changes noted. No need for treatment at this time, monitor daily potassium. Chronic medical conditions: ? Morbid obesity with MALI: BMI 49 on admit. Complicates hospital course, care and prognosis. Continue PAP therapy with naps and at night. ? Type 2 diabetes mellitus with hyperglycemia and diabetic neuropathy: Home regimen of NPH/regular 70/30 insulin with very aggressive sliding scale with meals, metformin 1000 mg twice daily, semaglutide weekly. Blood glucose 243 on admit. A1c ordered. Will treat with Lantus 25 units twice daily and Humalog sliding scale insulin with meals for now, adjust as needed. ? History of CAD s/p CABG, hypertension, hyperlipidemia: Continue home aspirin and statin. Will hold home Lasix, losartan and Lopressor for now. ? Former tobacco abuse: Encouraged continued cessation. DVT prophylaxis: Not indicated, on heparin drip CODE STATUS: Full code, verified Expected disposition: Home, 2 to 3 days Total clinical time spent by myself addressing the patient's medical issues, reviewing all the data, and collaborating with patient's care team: 75 minutes. Charges/Coding Visit Charges Inpatient E&M: 30504 Init Hosp L3
[2024-05-06 13:02] LABS: Lactic Acid 1.5 mmol/L (0.4-1.9)
[2024-05-06 13:18] LABS: AST(SGOT) 57 U/L (15-37); Alanine Aminotransfer ALT/SGPT 29 U/L (16-61); Albumin, Serum 2.2 g/dL (3.2-5.0); Alkaline Phosphatase 146 U/L (45-117); Bilirubin, Direct 0.15 mg/dL (0.00-0.30); Globulin 5.3 g/dL (2.2-4.2); Protein, Total 7.5 g/dL (6.4-8.2); Troponin-I HS 9 pg/mL (3.0-78.0)
--- NOTE | 2024-05-06 13:18 | NURSING ---
PCU MOSTELLER PNEUMONIA, PE, LUNG CANCER, EFFUSION
[2024-05-06] MEDS: HEPARIN/D5w 25,000 UNITS 25,000 UNITS/250 ML IV.SOLN. 19 UNITS CONT INF (13:30)
[2024-05-06] MEDS: Azithromycin 500 MG in Dextrose 5%-Water (250mL Bag) 250 ML 250 MG IV (13:30)
[2024-05-06] MEDS: Heparin Injection (Vial) 5,000 UNIT/ML VIAL 12000 UNIT IV (13:31)
--- NOTE | 2024-05-06 13:36 | ED.RN ---
This RN confirmed 12,000 unit bolus with Regino from pharmacy
[2024-05-06 13:50] LABS: LDH 413 U/L (87-241)
--- NOTE | 2024-05-06 13:59 | ECHOCS_ITS ---
Reason For Study: PULMONARY EMBOLISM Procedure This was a 2D Doppler, Color Flow transthoracic echocardiogram. The study was technically difficult. Contrast injection was performed. Exam performed portable in patient room. Left Ventricle Normal LV size. Left ventricular systolic function is normal. The left ventricular ejection fraction is 60 %. No regional wall motion abnormalities noted. Right Ventricle Normal RV size. Normal systolic function. Atria Normal left atrium. Normal right atrium. Mitral Valve Normal mitral valve. Tricuspid Valve Normal tricuspid valve. Mild tricuspid valve insufficiency. Pulmonary artery systolic pressure is 30 mmHg. Aortic Valve Trisinus/trileaflet aortic valve. Pulmonic Valve Normal pulmonic valve. Great Vessels Normal aortic root. The pulmonary artery is normal size. Normal inferior vena cava. Pericardium/Pleural No pericardial effusion. Medication Diluted definity 4ml given slow IV push to enhance endocardial definition. MMode/2D Measurements & Calculations RVDd: 4.0 cm LVOT diam: 2.1 cm Ao root diam: 3.7 cm LVOT area: 3.5 cm2 LAV(MOD-bp): 44.0 ml LVAd ap4: 31.7 cm2 LVAd ap2: 31.1 cm2 LAV(MOD-bp) Indexed: 16.8 ml/m2 LVLd ap4: 8.3 cm LVLd ap2: 8.7 cm LAV(MOD-sp2): 42.8 ml EDV(MOD-sp4): 97.1 ml EDV(MOD-sp2): 88.5 ml LAV(MOD-sp4): 43.0 ml EDV(sp4-el): 102.7 ml EDV(sp2-el): 94.5 ml LVAs ap4: 17.2 cm2 LVAs ap2: 18.6 cm2 LVLs ap4: 6.7 cm LVLs ap2: 7.1 cm ESV(MOD-sp4): 37.0 ml ESV(MOD-sp2): 39.7 ml ESV(sp4-el): 37.5 ml ESV(sp2-el): 41.6 ml EF(MOD-sp4): 61.9 % EF(MOD-sp2): 55.2 % EF(sp4-el): 63.4 % SV(MOD-sp4): 60.1 ml SV(MOD-sp2): 48.8 ml SV(sp4-el): 65.2 ml LA A4 area: 16.8 cm2 LA dimension(2D): 4.1 cm RA A4 area: 18.3 cm2 Time Measurements MV dec time: 0.11 sec Doppler Measurements & Calculations MV E max satya: 97.0 cm/sec Lat Peak E' Satya: 17.2 cm/sec Med Peak E' Satya: 21.6 cm/sec E/E' lat: 5.6 E/E' med: 4.5 Ao V2 max: 145.8 cm/sec LV V1 max: 88.7 cm/sec SV(LVOT): 59.4 ml Ao max P.5 mmHg LV V1 max P.1 mmHg Ao V2 mean: 99.7 cm/sec LV V1 mean P.0 mmHg Ao mean P.5 mmHg LV V1 mean: 68.4 cm/sec Ao V2 VTI: 21.1 cm LV V1 VTI: 17.0 cm AV (velocity ratio): 0.81 JADE(I,D): 2.8 cm2 JADE(V,D): 2.1 cm2 PA V2 max: 86.8 cm/sec TR max satya: 250.9 cm/sec PA max PG (full): 1.5 mmHg TR max P.2 mmHg ECHO/Echo Complete W/ Contrast Interpretation Summary Normal LV size. Left ventricular systolic function is normal. The left ventricular ejection fraction is 60 %. Pulmonary artery systolic pressure is 30 mmHg. Contrast injection was performed. Ordering Physician: Jaspreet Borges Referring Physician: MD Adalid Cross Performed By: Sylvia Moore RDCS
--- NOTE | 2024-05-06 16:19 | CHAPLAIN ---
Type of Pastoral Visit __x_ Initial Visit ___ Follow-up Visit ___ On-call Visit ___ General Patient Visit ___ Spiritual Assessment ___ Family Conference ___ Bereavement ___ Rapid Response ___ Code Blue ___ Other (describe below) Pastoral Care Referral From _x__ Patient ___ Family ___ Nurse ___ Physician ___ Packer Inspector ___ [employer] Worker ___ Other (describe below) Sacrament/Intervention _x__ Active listening ___ Anointing ___ Roman Catholic ___ Bereavement ___ Communion ___ Kathy exploration ___ ___ Life review _x__ Prayer ___ Reconciliation ___ Sacrament of Sick ___ Supportive presence ___ Wedding ___ Other (describe below) Pastoral Comments patient was just admitted this afternoon; pt is trying to rest but admits that he is unable to do so and has had trouble with his breathing; pt states that he is fine to talk but would most appreciate a prayer; pt has a new diagnosis of cancer and now pneumonia; pt will start chemo treatments next week; pt is asked about how he is coping with it all and his response It is just life. It's what happens.
[2024-05-06] MEDS: Insulin Lispro 100 UNIT/ML INSULN.PEN SC ×2 (17:02→21:44)
[2024-05-06 17:14] LABS: Bedside Glucose 354 mg/dL (74-106)
--- NOTE | 2024-05-06 18:29 | NURSING ---
Reviewed and agreed on charting with Katharina Florez RN
[2024-05-06 20:10] LABS: Partial Thromboplast Time 114.3 Seconds (24.1-36.2)
[2024-05-06] MEDS: hydrOXYzine PAM 25 MG Capsule PO (21:43)
[2024-05-06] MEDS: Atorvastatin Calcium 40 MG Tablet PO (21:43)
[2024-05-06] MEDS: Insulin Glargine-YFGN 100 UNIT/ML Pen 35 UNIT SC (21:50)
[2024-05-06 22:21] LABS: Bedside Glucose 377 mg/dL (74-106)
[2024-05-07] VITALS (11 sets, daily range): BP systolic 101–159; BP diastolic 60–89; PULSE 89–107; RESP 16–22; TEMP 36.1–36.9; O2SAT 95–97
--- NOTE | 2024-05-07 | FLU_PTH ---
PATIENT: ALEKS COSTELLO LOC: [facility] U#:[id number] AGE/SX: 73/M ROOM: [facility] RE05/06/[address]: Dr. Elias Sanchez DO : 1950 BED: 1 DIS: 05/09/2024 SPEC #: [id number] RECD: 05/07/24 09:06 STATUS: KITTY REQ #: [id number] JOE: 05/07/24 00:[address]: Jaspreet Borgse DEPT: CYTOLOGY RECD BY: Mike Recio ENTERED: 05/07/24 11:30 SP TYPE: Fluid OTHR DR: MD Dr. Harrison Leo MD Dr. Derek Brown, DO Dr. David P Myers, MD Dr. Edward Matheis, MD Dr. Gautam Baskaran, MD Dr. Yordanos Habtegebriel, MD Dr. Hemant Dand, MD Dr. Jose Ochoa, MD Dr. Kimber Foust, MD Dr. Lamia Aljundi, MD Dr. Pritam Ghosh, MD Dr. Pavan Irukulla, MD Dr. Robert Lindsay, DO Dr. Saad Farooqi, MD Dr. Vikram Anand, MD Dr. William Haden, MD Tissues: Pleural fluid, NOS Procedures: Special Stain Group II Surgery Specimen Level IV Cytospin Fluid HEADER OPERATION: Thoracentesis fluid PRE-OP DIAGNOSIS: Pleural effusion TISSUE SUBMITTED: Thoracentesis fluid for cytology DIAGNOSIS CYTOLOGY Thoracentesis fluid (cytospin and cellblock): Negative for malignant cells. See comment. Fred 05/08/2024 COMMENT Clinical correlation and appropriate follow up are necessary. This case was discussed with Dr. Gusman on 05/08/2024. CYTOLOGY STUDY Slides are reviewed. CYTOLOGY GROSS Received is 90 ml of dark red-cloudy fluid labeled with the patient's name and and designated per the requisition as Thoracentesis fluid. Submitted for cytology preparation including cell block. Mr 05/07/2024 TC:5 CPT: 55321,76651
[2024-05-07 04:37] LABS: Hematocrit 35.9 % (40-54); Mean Corp Hgb Conc 33.4 g/dL (32-36); Mean Corpuscular Hgb 31.3 pg (27.0-32.0); Mean Corpuscular Volume 93.7 fL (80-94); Mean Platelet Vol. 8.9 fl (6.2-12.0); Platelet Count 266 K/mm3 (150-450); RBC Distribution Width CV 12.7 % (11.6-14.6); RBC Distribution Width SD 43.8 fl (35.1-43.9); Red Blood Count 3.83 M/mm3 (4.6-6.2); White Blood Count 14.3 K/mm3 (4.4-11.0)
[2024-05-07 04:43] LABS: Partial Thromboplast Time 59.7 Seconds (24.1-36.2)
[2024-05-07 04:54] LABS: Anion Gap 6 (5-15); BUN 30 mg/dL (7-18); BUN/Creat Ratio 23.8 RATIO (10-20); Chloride 99 mmol/L (98-107); Creatinine, Serum 1.26 mg/dL (0.70-1.30); EST Glomerular Filtration Rate 60 mL/min (>60); Est Glom Filt Rate - Afr Amer 72 mL/min (>60); Estimated Creatinine Clearance 80.41 ml/min; Glucose 338 mg/dL (74-106); Potassium 5.7 mmol/L (3.5-5.1); Sodium Level 130 mmol/L (136-145)
[2024-05-07] MEDS: Insulin Lispro 100 UNIT/ML INSULN.PEN SC ×4 (06:28→21:13)
[2024-05-07 06:51] LABS: Bedside Glucose 327 mg/dL (74-106)
[2024-05-07] MEDS: Ipratropium/Albuterol Sulfate 3 ML AMPUL.NEB INHALATION ×3 (07:33→19:29)
--- NOTE | 2024-05-07 08:28 | PCM.OP.PRO ---
Procedure Report Date of Procedure: 05/07/24 Assessment & Plan Assessment/Plan (1) Pleural effusion: PLAN: PROCEDURE: Ultrasound Guided Thoracentesis ORDERING PROVIDER: Dr. Borges INDICATION: Male, 73 years old. Right pleural effusion. PROVIDER: ANGELIKA Washburn PROCEDURE: The risks, benefits, and alternatives to the procedure were explained to the patient. The specific risks of bleeding, infection, and pneumothorax requiring chest tube insertion were discussed and accepted. Written informed consent was obtained. The patient was placed in the sitting, upright position. Ultrasonographic evaluation of the bilateral lower pleural spaces was carried out. An adequate pocket was identified in the right lower pleural space.The overlying skin was prepped and draped in sterile fashion. 2% lidocaine was administered subcutaneously for local anesthesia. Under ultrasound guidance, a 5-[place] thoracentesis needle/catheter system was advanced into the right posterior lower pleural fluid collection. 1170 ml of dark red colored fluid was drained. 100 mL of this fluid was collected and sent to laboratory for analysis. The catheter was removed, and a sterile dressing was applied. The patient tolerated the procedure well. A chest x-ray was ordered. IMPRESSION: Successful ultrasound-guided thoracentesis of right pleural effusion. Procedures Radiology Radiology US Procedures: 15296 Thoracentesis
--- NOTE | 2024-05-07 08:29 | RAD_ITS ---
STUDY: X-RAY CHEST REASON FOR EXAM: Male, 73 years old. Post thora TECHNIQUE: AP inspiration views. COMPARISON: Comparison is made with prior study of January 09, 2024. FINDINGS: The patient is status post right thoracentesis. There is no evidence of pneumothorax. Atelectasis and/or infiltrate at the right lung base. Sternal cerclage wires are present from a prior sternotomy and aortic valve replacement. Normal mediastinum and katrin. Normal visualized pulmonary arteries. Normal visualized aortic arch and descending thoracic aorta. RAD/Chest Insp/Exp 2 View IMPRESSION: Status post right thoracentesis. No evidence of pneumothorax. Atelectasis and/or infiltrate at the right lung base. Electronically Signed: Lauro Aldana MD at 8:44 EDT ,
[2024-05-07] MEDS: Lidocaine 2% (20 ml mdv) 20 ML Vial INFILT (08:52)
[2024-05-07 09:10] LABS: Cytology, Body Fluid / CSF SEE PATHOLOGY REPORT
[2024-05-07 09:46] LABS: Body Fluid Mononuclear WBC # 0.969 10^3/uL; Body Fluid Polynuclear WBC # 1.335 10^3/uL; Body Fluid Total Cells Counted 2.324 10^3/ul; Red Cell Count/Body Fluid 0.563 10^6/ul; White Blood Count/Body Fluid 2.304 10^3/uL
[2024-05-07] MEDS: Insulin Glargine-YFGN 100 UNIT/ML Pen 35 UNIT SC ×2 (09:56→21:14)
[2024-05-07] MEDS: terbinafine HCL 250 MG TABLET PO (09:56)
[2024-05-07] MEDS: Loratadine 10 MG Tablet PO (09:56)
[2024-05-07] MEDS: Aspirin E.C. 81 MG Tablet PO (09:56)
[2024-05-07] MEDS: Ceftriaxone 1 GM/50 ML BAG IV (09:57)
[2024-05-07 10:09] LABS: LDH,Body Fluid 634 Units/L (Not Establ.); Protein, Body Fluid 4.2 g/dL (Not Establ.)
--- NOTE | 2024-05-07 10:45 | EX.PCM.CONCC ---
Assessment & Plan Assessment/Plan (1) Hypoxia: (2) Pulmonary embolism: (3) Pleural effusion: (4) Pneumonia: PLAN: Plan RECOMMENDATIONS: 1. Continue systemic anticoagulation. 2. Perform walking oximetry prior to consideration for discharge home. 3. Continue antimicrobials. Transition to Levaquin to complete treatment course at discharge. 4. Continue scheduled bronchodilators. 5. Okay to transition to prednisone 40 mg daily, with plans for a 5-day burst at discharge. 6. Resume triple therapy inhaler regimen at discharge. IMPRESSIONS: 1. Shortness of breath and hypoxemia Multifactorial in etiology with underlying pleural effusion, postobstructive pneumonia and pulmonary embolism contributing. The patient is otherwise clinically stable on minimal supplemental O2. He does have known COPD and is currently on a triple therapy inhaler regimen at his baseline. The patient is status post ultrasound-guided thoracentesis, with exudative pleural effusion noted. While this pleural effusion could be parapneumonic in etiology, pleural fluid cytology is currently pending to rule out malignancy as well. In the interim, continue antibiotics, bronchodilators and steroids. The patient will be continued on systemic anticoagulation as ordered. He will require a walking oximetry study prior to consideration for discharge home. 2. Morbid obesity/obstructive sleep apnea/diabetes mellitus/history of coronary artery disease status post CABG Complicates care, management, recovery and prognosis. Continue home medications as indicated. Continue PAP therapy with naps and nightly. This note was generated with [employer] dictation software. It may contain incorrect words, spelling, and punctuation that were not noted in checking the note before signing. HPI Consult Data Date of Consult: 05/07/24 HPI Narrative Reason for Consultation: Pulmonary embolism HPI Narrative: The patient is a 73-year-old male, with a history as outlined below, who presented to the emergency department on May 06 with reported shortness of breath. The patient is followed in the pulmonary medicine office on an outpatient basis due to a history of COPD. In addition, the patient has newly diagnosed adenocarcinoma of the right lung. He is currently being followed by Dr. Baum of oncology. The patient is being worked up to start chemoradiation in the upcoming weeks. On presentation to the emergency department, the patient was noted to be afebrile and hemodynamically stable. He was initially saturating 88% on room air. Initial laboratory evaluation revealed a white blood cell count of 14,000. Chemistry profile was notable for a sodium of 132, potassium of 5.5 and creatinine of 1.2. Lactate was within normal limits. CTA chest revealed pulmonary emboli bilaterally, postobstructive pneumonia and a moderate right-sided pleural effusion. The patient was subsequently placed on a weight-based heparin infusion along with IV steroids, antibiotics and bronchodilators. He was admitted to the progressive care unit for further management. The patient underwent successful ultrasound-guided thoracentesis of the right-sided pleural space on the morning of May 07 with 1170 mL of dark-colored fluid removed. The pleural fluid itself was exudative in nature. Pleural fluid cultures and cytology are pending. [facility] Medical History COPD (chronic obstructive pulmonary disease) Former smoker Diabetes Home Medications ?Medication ?Instructions ?Recorded ?Last Taken ?Type albuterol sulfate 2.5 mg/3 mL 2.5 mg inhalation Q6H PRN 05/02/18 05/06/24 History (0.083 %) solution for nebulization shortness of breath or wheezing aspirin 81 mg tablet,delayed 81 mg PO DAILY 05/02/18 05/06/24 History release furosemide 40 mg tablet 40 mg PO BID 05/02/18 05/06/24 History metformin 1,000 mg tablet 1,000 mg PO BID 05/02/18 05/06/24 History metoprolol tartrate 25 mg tablet 25 mg PO DAILY 05/02/18 05/06/24 History simvastatin 80 mg tablet 80 mg PO QHS 05/02/18 05/05/24 History insulin human U-100 NPH-regulr 1 sliding scale dose subcut BID 08/07/18 05/05/24 History 70-30 mix 100 unit/mL subcutaneous susp (Novolin 70/30 U-100 Insulin) albuterol sulfate 90 mcg/actuation 2 puff inhalation Q4H PRN 02/05/19 05/06/24 Rx aerosol inhaler (Ventolin HFA) shortness of breath or wheezing #18 grams losartan 50 mg tablet 50 mg PO DAILY 10/28/20 05/06/24 History terbinafine HCl 250 mg tablet 250 mg PO DAILY 02/14/21 05/06/24 History Symbicort 80 mcg-4.5 mcg/actuation 2 inh inhalation BID #3 ea 05/05/24 05/06/24 Rx HFA aerosol inhaler (budesonide-formoterol) cetirizine 10 mg tablet 10 mg PO DAILY 05/06/24 05/06/24 History clobetasol 0.05 % topical cream 1 applic topical BID 05/06/24 05/06/24 History hydroxyzine HCl 25 mg tablet 25 mg PO QHS 05/06/24 05/05/24 History semaglutide 2 mg/dose (8 mg/3 mL) 2 mg subcut TH 05/06/24 05/01/24 History subcutaneous pen injector (Ozempic) tiotropium bromide 18 mcg capsule 1 cap inhalation DAILY 05/06/24 05/06/24 History with inhalation device (Spiriva with HandiHaler) Allergy/AdvReac Type Severity Reaction Status Date / Time No Known Allergies Allergy Verified 05/06/24 10:06 Family History Father Heart disease Diabetes Brother Cancer Throat Grandmother Breast cancer Surgical History Hx of heart artery stent S/P CABG x 3 Social History Smoking Status: Former smoker pack-years: 55 Tobacco: How many years used: 35 how long ago did patient quit smokin second hand exposure: Yes alcohol intake: current alcohol intake frequency: holidays/special occasions only Alcohol type: beer substance use type: does not use caffeine: Yes what type of physical activity do you participate in: none ROS ROS Narrative 10 systems were reviewed with pertinent positives as noted in the HPI above. Physical Exam Const alert and no apparent distress Constitutional Narrative: Morbidly obese. General Appearance: cooperative HEENT normocephalic and head/scalp atraumatic Eyes PERRL, EOMs intact bilaterally and conjunctivae normal Neck supple General: trachea midline Chest inspection of chest normal Resp normal respiratory effort Auscultation: diminished lung sounds; Negative for rales, rhonchi or wheezes Cardio regular rate and regular rhythm GI normal to inspection, nondistended, normoactive bowel sounds Extremity no clubbing, cyanosis or edema Skin no rashes or lesions noted Neuro CN's II-XII intact bilaterally and no focal motor deficits Psych cooperative and affect normal Lab / Micro Data 05/07/24 04:25 05/07/24 04:25 Labs: Laboratory Results - last 24 hr 05/06/24 09:08: Fluid Total Protein 4.2, Fluid LDH 634 05/06/24 10:20: Sodium 132 L, Potassium 5.5 H, Chloride 100, Carbon Dioxide 23.0, Anion Gap 9, BUN 25 H, Creatinine 1.20, Estim Creat Clear Calc 84.91, Est GFR (MDRD) Af Amer 77, Est GFR (MDRD) Non-Af 63, BUN/Creatinine Ratio 20.8 H, Glucose 243 H, Calcium 8.9 05/06/24 12:05: PT 16.2 H, INR 1.3, APTT 30.2, Lactic Acid 1.5, Total Bilirubin 0.70, Direct Bilirubin 0.15, AST 57 H, ALT 29, Alkaline Phosphatase 146 H, Lactate Dehydrogenase 413 H, Troponin I High Sens 9, Total Protein 7.5, Albumin 2.2 L, Globulin 5.3 H 05/06/24 16:56: POC Glucose 354 H 05/06/24 19:36: APTT 114.3 H* 05/06/24 21:41: POC Glucose 377 H 05/07/24 04:25: WBC 14.3 H, RBC 3.83 L, Hgb 12.0 L, Hct 35.9 L, MCV 93.7, MCH 31.3, MCHC 33.4, RDW Std Deviation 43.8, RDW Coeff of Ino 12.7, Plt Count 266, MPV 8.9, APTT 59.7 H, Sodium 130 L, Potassium 5.7 H, Chloride 99, Carbon Dioxide 25.0, Anion Gap 6, BUN 30 H, Creatinine 1.26, Estim Creat Clear Calc 80.41, Est GFR (MDRD) Af Amer 72, Est GFR (MDRD) Non-Af 60, BUN/Creatinine Ratio 23.8 H, Glucose 338 H, Calcium 9.0 05/07/24 06:26: POC Glucose 327 H 05/07/24 09:08: Fluid WBC 2.304, Fluid RBC 0.563, Fluid Tot Cell Count 2.324, Fld Polynuclear WBCs # 1.335, Fld Polynuclear WBCs % 58.0, Fluid Mononuclear WBCs 0.969, Fld Mononuclear WBCs % 42.0 Imaging Radiology Impression Chest CTA 05/06/24 10:35 IMPRESSION: 1. Partially occlusive thrombi/emboli are present in the secondary peripheral arterial branches of the bilateral pulmonary artery supplying the bilateral lower lobes as well as the lingula and right middle lobe. The main bilateral pulmonary arteries in the pulmonary trunk are normal. 2. No saddle embolus is present. No demonstrated heart strain or cardiac enlargement or pericardial effusion. 3. Multilobular masses with secondary consolidation are present in the inferior aspect of the right upper lobe and in the right hilar region maximally measuring 5.76 x 3.46 cm. Wedge-shaped area of consolidation of the periphery of the right upper lobe measures 4.85 cm. The right hilar mass has moderately enlarged since the prior study of January 29, 2024. 4. The pleural effusion, pulmonary artery emboli, and post obstructive consolidation of the right lung are all new findings since the January 29, 2024 study. 5. A moderate-sized right pleural effusion is present with partial loculation of the pleural fluid. Electronically Signed: Maxwell Vogel MD at 11:59 EDT Reading Location ID and State: [facility] / [place] , Service support , Echocardiogram 05/06/24 13:59 Interpretation Summary Normal LV size. Left ventricular systolic function is normal. The left ventricular ejection fraction is 60 %. Pulmonary artery systolic pressure is 30 mmHg. Contrast injection was performed. Ordering Physician: Jaspreet Borges Referring Physician: MD Adalid Cross Performed By: Sylvia Moore ESPERANZA Chest X-Ray 05/07/24 08:29 IMPRESSION: Status post right thoracentesis. No evidence of pneumothorax. Atelectasis and/or infiltrate at the right lung base. Electronically Signed: Lauro Aldana MD at 8:44 EDT , Charges/Coding Visit Charges Inpatient E&M: 09235 Init Hosp L3
[2024-05-07] MEDS: Azithromycin 500 MG in Dextrose 5%-Water (250mL Bag) 250 ML 250 MG IV (10:53)
[2024-05-07] MEDS: HEPARIN/D5w 25,000 UNITS 25,000 UNITS/250 ML IV.SOLN. 16 UNITS CONT INF (10:58)
--- NOTE | 2024-05-07 11:10 | CASEMGMT ---
RN MARIO Face to Face with patient for initial transition planning/care coordination assessment. RN CM introduced self and role at [facility]. Patient lying in bed, alert and oriented, at bedside. Patient willing to participate in assessment and is able to answer all questions appropriately. Care providers, pharmacy, and demographics verified. Strata: 2 PCP: [place] Specialists: Sarika, oncologist; Naseem, radiology oncologist; Mary Victor, product manager e commerce; Main, endocrinology [facility] Insurance: [facility] Prescription Benefit: yes Living Will/HPOA: yes, Tanja Shi LNOK: Living Arrangements: Patient lives with in a split level home with 7 steps and railing between levels. Patient states he is independent and able to ambulate stairs. Transportation: self, DME/HHC: Patient has shower chair, raised toilet, cane, grab bars, glucometer, cpap, nebulizer, and his own concentrator that he uses as need at 2lpm. No previous HHC or SNF. Patient wishes to discharge home, denies need for home health at this time. Patient states he has no further needs or concerns at this time. CM to follow for discharge planning needs that may arise. Disposition Plan: Patient to discharge home with family support and follow-up plans in place. Will monitor for portable home oxygen. Kathia HELM, RN, CM
[2024-05-07 11:33] LABS: Lymphocytes 23 %; Monocytes 9 %; Neutrophil (Segs) 46 %; Other Cell Type/BF 22 %
[2024-05-07 11:37] LABS: Auto B Fluid Analyzer BKGD Ct COUNTS W/IN LIMITS (W/IN LIMITS)
[2024-05-07 11:39] LABS: Appearance/Body Fluid TURBID; Body Fluid QC Type(s) BF1Q; Color/Body Fluid RED; Source- Body Fluid PLEURAL FLUID
[2024-05-07 12:26] LABS: Bedside Glucose 434 mg/dL (74-106)
--- NOTE | 2024-05-07 12:58 | PCM.PN.HOSP ---
Reason for Visit Reason for Visit: Diagnoses Malignant neoplasm of unspecified part of right bronchus or lung (05/06/24) Other pulmonary embolism without acute cor pulmonale (05/06/24) Pneumonia, unspecified organism (05/06/24) Pleural effusion, not elsewhere classified (05/06/24) Hypoxemia (05/06/24) Subjective Subjective Saw patient at bedside this morning, present. Patient had thoracentesis done prior to my encounter with him and had 1170 mL of fluid removed. States that his right-sided chest pain is much improved after the thoracentesis. He denies any shortness of breath at rest currently. Was sitting at the edge of the bed and breathing comfortably on 2 L nasal cannula. Denied any fevers or chills. No other new concerns today. Objective Data Objective Data Vital Signs: Vital Signs Temp Pulse Resp BP Pulse Ox O2 Del Method O2 Flow Rate 97.7 F L 100 16 111/60 97 Room Air 2 05/07/24 09:46 05/07/24 09:46 05/07/24 09:46 05/07/24 09:46 05/07/24 09:46 05/07/24 09:46 05/07/24 09:45 Oxygen Flow Rate (L/min) 2 Oxygen Delivery Method Room Air Weight: 154.8 kg Body Mass Index (BMI) 48.9 Intake & Output: Intake and Output for Last 24 Hours 05/05/24 05/06/24 05/07/24 23:59 23:59 23:59 Intake Total 681.67 / 681.67 678.33 / 678.33 Output Total 250 / 250 1170 / 1170 Balance 431.67 / 431.67 -491.67 / -491.67 Lab / Micro Data 05/07/24 04:25 05/07/24 04:25 Labs: Laboratory Results - last 24 hr 05/06/24 09:08: Fluid Total Protein 4.2, Fluid LDH 634 05/06/24 12:05: Lactic Acid 1.5, Total Bilirubin 0.70, Direct Bilirubin 0.15, AST 57 H, ALT 29, Alkaline Phosphatase 146 H, Lactate Dehydrogenase 413 H, Troponin I High Sens 9, Total Protein 7.5, Albumin 2.2 L, Globulin 5.3 H 05/06/24 16:56: POC Glucose 354 H 05/06/24 19:36: APTT 114.3 H* 05/06/24 21:41: POC Glucose 377 H 05/07/24 04:25: WBC 14.3 H, RBC 3.83 L, Hgb 12.0 L, Hct 35.9 L, MCV 93.7, MCH 31.3, MCHC 33.4, RDW Std Deviation 43.8, RDW Coeff of Ino 12.7, Plt Count 266, MPV 8.9, APTT 59.7 H, Sodium 130 L, Potassium 5.7 H, Chloride 99, Carbon Dioxide 25.0, Anion Gap 6, BUN 30 H, Creatinine 1.26, Estim Creat Clear Calc 80.41, Est GFR (MDRD) Af Amer 72, Est GFR (MDRD) Non-Af 60, BUN/Creatinine Ratio 23.8 H, Glucose 338 H, Calcium 9.0 05/07/24 06:26: POC Glucose 327 H 05/07/24 09:08: Fluid Source PLEURAL FLUID, Fluid Color RED, Fluid Appearance TURBID, Fluid WBC 2.304, Fluid RBC 0.563, Fluid Tot Cell Count 2.324, Fld Polynuclear WBCs # 1.335, Fld Polynuclear WBCs % 58.0, Fluid Mononuclear WBCs 0.969, Fld Mononuclear WBCs % 42.0, Fluid Neutrophils 46, Fluid Lymphocytes 23, Fluid Monocytes 9, Fluid Other Cells 22, Fl Pathologist Comment May follow, Fluid Comment 2 SEE COMMENT 05/07/24 12:06: POC Glucose 434 H Radiography Diagnostic Testing: Radiology Impression Echocardiogram 05/06/24 13:59 Interpretation Summary Normal LV size. Left ventricular systolic function is normal. The left ventricular ejection fraction is 60 %. Pulmonary artery systolic pressure is 30 mmHg. Contrast injection was performed. Ordering Physician: Jaspreet Borges Referring Physician: MD Adalid Cross Performed By: Sylvia Moore RDCS Chest X-Ray 05/07/24 08:29 IMPRESSION: Status post right thoracentesis. No evidence of pneumothorax. Atelectasis and/or infiltrate at the right lung base. Electronically Signed: Lauro Aldana MD at 8:44 EDT , Physical Exam Const alert, oriented x3 and no apparent distress Constitutional Narrative: Pleasant elderly male, morbidly obese, energy improved from admission, sitting up comfortably in bed, conversing normally, in no acute distress. General Appearance: cooperative and comfortable HEENT normocephalic, head/scalp atraumatic, hearing grossly normal bilaterally, nasal mucous membranes and turbinates normal and moist oral mucous membranes Eyes PERRL, EOMs intact bilaterally and conjunctivae normal Neck full ROM Chest inspection of chest normal Resp normal respiratory effort and no use of accessory muscles Resp Narrative: Breathing comfortably on 2 L nasal cannula at rest. Diminished breath sounds on right, improved from admission. No wheezing or crackles noted. Cardio regular rate, regular rhythm, no murmurs and peripheral pulses 2+ throughout GI normal to inspection, nondistended, normoactive bowel sounds, soft to palpation, non-tender and non-distended Back/Spine normal ROM Extremity normal to inspection, full ROM and no pedal edema Skin no rashes or lesions noted Neuro moves all extremities and no focal motor deficits Speech: speech normal Psych mental status grossly normal Assessment & Plan Assessment/Plan (1) Pulmonary embolism: (2) Pleural effusion: (3) Pneumonia: (4) Adenocarcinoma of right lung: (5) Hypoxia: PLAN: Plan Patient is a 73-year-old male who presented [facility] ED on 05/06/2024 with worsening shortness of breath. 1. Bilateral PE (low risk) with acute hypoxia, mild COPD exacerbation, recently diagnosed right lung adenocarcinoma, suspected postobstructive pneumonia with moderate right pleural effusion ? Pulmonology following. CTA chest on admit showed peripheral bilateral PE with no saddle embolus and no heart strain; also showed moderate right pleural effusion with RLL consolidation in setting of recently diagnosed right lung adenocarcinoma. Acute hypoxia requiring 2 to 4 L nasal cannula to maintain oxygen saturations on admission. Echo on 05/06 showed normal EF, normal RV size and function, no other abnormalities. S/p right-sided thoracentesis with radiology on 05/07 with 1170 mL of dark red fluid removed. Fluid studies pending. Infectious workup negative to this point. Will continue to treat with IV antibiotics and scheduled DuoNebs for now. Will de-escalate from IV steroids to p.o. steroids on 05/08. Continue home long-acting inhalers. Transitioned from heparin drip to Eliquis on 05/07. Oxygen ambulatory test ordered for morning of 05/08; suspect patient may need supplemental oxygen on discharge. If patient remains stable tomorrow, likely okay for discharge home; would discharge with 5-day courses of antibiotics and steroids and continue Eliquis with increased dosing for first 7 days. Follows with outpatient oncology, will need to reschedule port placement and timing of starting chemotherapy and radiation due to this hospitalization. 2. Mild hyponatremia ? Sodium 132 on admit, slightly decreased to 130 on hospital day 2. No specific management required, monitor daily sodium. 3. Mild hyperkalemia ? Potassium 5.5 on admit, slightly increased to 5.7 on hospital day 2. No EKG changes noted. No need for treatment at this time, monitor daily potassium. Chronic medical conditions: ? Morbid obesity with MALI: BMI 49 on admit. Complicates hospital course, care and prognosis. Continue PAP therapy with naps and at night. ? Type 2 diabetes mellitus with hyperglycemia and diabetic neuropathy: Home regimen of NPH/regular 70/30 insulin with very aggressive sliding scale with meals, metformin 1000 mg twice daily, semaglutide weekly. Blood glucose 243 on admit. A1c ordered. Treating with Lantus 35 units twice daily and Humalog 10 units with meals plus sliding scale insulin for now, adjust as needed. ? History of CAD s/p CABG, hypertension, hyperlipidemia: Continue home aspirin and statin. Holding home Lasix, losartan and Lopressor for now; will likely be okay to restart on discharge. ? Former tobacco abuse: Encouraged continued cessation. DVT prophylaxis: Not indicated, on Eliquis CODE STATUS: Full code, verified Expected disposition: Home, 1 to 2 days Total clinical time spent by myself addressing the patient's medical issues, reviewing all the data, and collaborating with patient's care team: 35 minutes. Charges/Coding Visit Charges Inpatient E&M: 90020 Subs Hosp L2
[2024-05-07] MEDS: Insulin Lispro 100 UNIT/ML INSULN.PEN 10 UNIT SC ×2 (13:12→17:15)
[2024-05-07] MEDS: 0.9% Saline Lock 10 ML Syringe IV ×2 (15:32→17:19)
[2024-05-07] MEDS: APIXABAN 5 MG TABLET PO (15:33)
[2024-05-07 17:35] LABS: Bedside Glucose 412 mg/dL (74-106)
[2024-05-07] MEDS: APIXABAN 5 MG TABLET 10 MG PO (21:15)
[2024-05-07] MEDS: Atorvastatin Calcium 40 MG Tablet PO (21:15)
[2024-05-07] MEDS: hydrOXYzine PAM 25 MG Capsule PO (21:15)
[2024-05-07 21:39] LABS: Bedside Glucose 367 mg/dL (74-106)
[2024-05-08] VITALS (10 sets, daily range): BP systolic 124–145; BP diastolic 59–85; PULSE 79–101; RESP 17–18; TEMP 36.3–36.8; O2SAT 84–99
[2024-05-08 06:10] LABS: Hematocrit 35.8 % (40-54); Hemoglobin 12.1 g/dL (13.0-16.5); Mean Corp Hgb Conc 33.8 g/dL (32-36); Mean Corpuscular Hgb 31.6 pg (27.0-32.0); Mean Corpuscular Volume 93.5 fL (80-94); Platelet Count 297 K/mm3 (150-450); RBC Distribution Width CV 12.6 % (11.6-14.6); RBC Distribution Width SD 43.2 fl (35.1-43.9); Red Blood Count 3.83 M/mm3 (4.6-6.2); White Blood Count 16.7 K/mm3 (4.4-11.0)
[2024-05-08 07:34] LABS: Anion Gap 6 (5-15); BUN 37 mg/dL (7-18); BUN/Creat Ratio 30.3 RATIO (10-20); Calcium,Total 8.6 mg/dL (8.5-10.1); Chloride 102 mmol/L (98-107); Creatinine, Serum 1.22 mg/dL (0.70-1.30); EST Glomerular Filtration Rate 62 mL/min (>60); Est Glom Filt Rate - Afr Amer 75 mL/min (>60); Estimated Creatinine Clearance 83.05 ml/min; Glucose 370 mg/dL (74-106); Potassium 5.8 mmol/L (3.5-5.1); Sodium Level 132 mmol/L (136-145)
[2024-05-08] MEDS: Ipratropium/Albuterol Sulfate 3 ML AMPUL.NEB INHALATION ×3 (07:35→19:27)
[2024-05-08 07:57] LABS: Bedside Glucose 303 mg/dL (74-106)
[2024-05-08] MEDS: Insulin Lispro 100 UNIT/ML INSULN.PEN 10 UNIT SC ×3 (08:06→17:05)
[2024-05-08] MEDS: Insulin Lispro 100 UNIT/ML INSULN.PEN SC ×4 (08:06→20:58)
[2024-05-08] MEDS: predniSONE 20 MG Tablet 40 MG PO (09:13)
[2024-05-08] MEDS: APIXABAN 5 MG TABLET 10 MG PO ×2 (09:13→20:59)
[2024-05-08] MEDS: Loratadine 10 MG Tablet PO (09:14)
[2024-05-08] MEDS: Aspirin E.C. 81 MG Tablet PO (09:14)
[2024-05-08] MEDS: terbinafine HCL 250 MG TABLET PO (09:14)
[2024-05-08] MEDS: Insulin Glargine-YFGN 100 UNIT/ML Pen 35 UNIT SC ×2 (09:16→20:59)
[2024-05-08] MEDS: Azithromycin 500 MG in Dextrose 5%-Water (250mL Bag) 250 ML 250 MG IV (09:22)
[2024-05-08] MEDS: Ceftriaxone 1 GM/50 ML BAG IV (10:35)
[2024-05-08 10:48] LABS: Pathologist Comment/Body Fluid Reviewed
[2024-05-08] MEDS: 0.9% Saline Lock 10 ML Syringe IV ×2 (12:34→20:57)
[2024-05-08] MEDS: Vancomycin HCl 2,000 MG in 0.9% Normal Saline (500mL Bag) 500 ML 250 MG IV (12:34)
[2024-05-08 12:42] LABS: Bedside Glucose 374 mg/dL (74-106)
--- NOTE | 2024-05-08 13:39 | PCM.RX.CS ---
Consult Antibiotic Management Pharmacy has been consulted to manage selected antibiotic: Vancomycin Type of Intervention Type of Consult: New start Suspected Infection Suspected Infection: Bacteremia Labs Labs: Sodium 132 mmol/L (136-145) L 05/08/24 05:41 Potassium 5.8 mmol/L (3.5-5.1) H 05/08/24 05:41 Chloride 102 mmol/L (98-107) 05/08/24 05:41 Carbon Dioxide 24.0 mmol/L (21.0-32.0) 05/08/24 05:41 Anion Gap 6 (5-15) 05/08/24 05:41 BUN 37 mg/dL (7-18) H 05/08/24 05:41 Creatinine 1.22 mg/dL (0.70-1.30) 05/08/24 05:41 Est GFR (MDRD) Af Amer 75 mL/min (>60) 05/08/24 05:41 Est GFR (MDRD) Non-Af 62 mL/min (>60) 05/08/24 05:41 BUN/Creatinine Ratio 30.3 RATIO (10-20) H 05/08/24 05:41 Glucose 370 mg/dL (74-106) H 05/08/24 05:41 Microbiology Microbiology: Microbiology 05/07/24 09:08 Fluid - Thoracentesis Fluid Gram Stain - Final 05/07/24 09:08 Fluid - Thoracentesis Fluid Body Fluid Culture - Preliminary No growth-Final to follow 05/06/24 12:05 Blood Culture (Wb) - Anticubital Left Bacteria Detection (PCR) - Final Staphylococcus lugdunensis 05/06/24 12:05 Blood Culture (Wb) - Anticubital Left Blood Culture - Preliminary Staphylococcus lugdunensis Pharmacy Plan for Drug Dosing Pharmacy Plan for Drug Dosing: NEW START IV VANCOMYCIN Consulting Physician: Daniel Indication: Bacteremia Goal Trough: 15-20 mg/dl SrCr: 1.22 mg/dl CrCl: 83 ml/min Comments: loading dose of 2000mg given 05/08 @ 1234 Vancomycin Dose: Will start 2000mg Q12 05/09 @ 0030 and get a level prior to 4th dose per policy. Pending Level: 05/10/24 @ 0000 Pharmacy Service will continue to monitor and adjust dosing as required.
--- NOTE | 2024-05-08 17:15 | PN.HOSP_ITS ---
Reason for Visit Reason for Visit: Diagnoses Malignant neoplasm of unspecified part of right bronchus or lung (05/06/24) Other pulmonary embolism without acute cor pulmonale (05/06/24) Pneumonia, unspecified organism (05/06/24) Pleural effusion, not elsewhere classified (05/06/24) Hypoxemia (05/06/24) Subjective Subjective Patient was seen and examined today, his blood culture resulted positive for staph lugdunensis, I discussed this with infectious diseases today and adjusted the patient's antibiotic coverage. At this time, patient is on minimal oxygen by nasal cannula. Objective Data Objective Data Vital Signs: Vital Signs Temp Pulse Resp BP Pulse Ox O2 Del Method O2 Flow Rate 98.2 F 98 18 142/73 H 99 Nasal Cannula 1 05/08/24 15:10 05/08/24 15:10 05/08/24 15:10 05/08/24 15:10 05/08/24 15:10 05/08/24 15:15 05/08/24 15:15 FiO2 98 05/08/24 07:35 Oxygen Flow Rate (L/min) [ 4 AMBULATING with Oxygen #1] Oxygen Flow Rate (L/min) [ 0 AMBULATING on Room Air] Oxygen Flow Rate (L/min) [At 0 REST on Room Air] Oxygen Flow Rate (L/min) 1 Oxygen Delivery Method Nasal Cannula Weight: 154.8 kg Body Mass Index (BMI) 48.9 Intake & Output: Intake and Output for Last 24 Hours 05/06/24 05/07/24 05/08/24 23:59 23:59 23:59 Intake Total 681.67 / 681.67 1291.13 / 1291.13 1325 / 1325 Output Total 250 / 250 1445 / 1445 Balance 431.67 / 431.67 -153.87 / -153.87 1325 / 1325 Lab / Micro Data 05/08/24 05:41 05/08/24 05:41 Labs: Laboratory Results - last 24 hr 05/07/24 09:08: Fl Pathologist Comment Reviewed 05/07/24 17:11: POC Glucose 412 H 05/07/24 21:12: POC Glucose 367 H 05/08/24 05:41: WBC 16.7 H, RBC 3.83 L, Hgb 12.1 L, Hct 35.8 L, MCV 93.5, MCH 31.6, MCHC 33.8, RDW Std Deviation 43.2, RDW Coeff of Ino 12.6, Plt Count 297, MPV 9.0, Sodium 132 L, Potassium 5.8 H, Chloride 102, Carbon Dioxide 24.0, Anion Gap 6, BUN 37 H, Creatinine 1.22, Estim Creat Clear Calc 83.05, Est GFR (MDRD) Af Amer 75, Est GFR (MDRD) Non-Af 62, BUN/Creatinine Ratio 30.3 H, Glucose 370 H , Calcium 8.6 05/08/24 07:38: POC Glucose 303 H 05/08/24 12:20: POC Glucose 374 H Micro: Microbiology 05/07/24 09:08 Fluid - Thoracentesis Fluid Gram Stain - Final 05/07/24 09:08 Fluid - Thoracentesis Fluid Body Fluid Culture - Preliminary No growth-Final to follow 05/06/24 12:05 Blood Culture (Wb) - Anticubital Left Bacteria Detection (PCR) - Final Staphylococcus lugdunensis 05/06/24 12:05 Blood Culture (Wb) - Anticubital Left Blood Culture - Preliminary Staphylococcus lugdunensis Physical Exam Const alert, oriented x3 and no apparent distress Constitutional Narrative: Patient is morbidly obese General Appearance: cooperative, well kempt and well developed Orientation / Consciousness: awake, oriented to person, oriented to place and oriented to time HEENT normocephalic, head/scalp atraumatic and moist oral mucous membranes Eyes PERRL, EOMs intact bilaterally and conjunctivae normal Neck supple, no JVD, thyroid normal and no carotid bruits General: trachea midline Resp normal respiratory effort, no retractions, no use of accessory muscles and clear to auscultation bilaterally Auscultation: Negative for rales, rhonchi or wheezes Cardio regular rate, regular rhythm, S1 normal heart sound, S2 normal heart sound, no murmurs, no rub and no gallops GI normal to inspection, nondistended, normoactive bowel sounds, soft to palpation, non-tender and non-distended Extremity no clubbing, cyanosis or edema Skin no rashes or lesions noted General Skin Exam: no breakdown Neuro oriented x3, CN's II-XII intact bilaterally, moves all extremities, no focal motor deficits and no sensory deficits noted Sensorium / Orientation: awake and alert Speech: speech normal Psych affect normal Assessment & Plan Assessment/Plan (1) Pulmonary embolism: PLAN: Plan 1. Bacteremia with staph lugdunensis-patient was placed on vancomycin today and infectious diseases will see the patient in consultation tomorrow, additional blood culture was ordered today before the vancomycin was given, patient had a recent echocardiogram which did not show evidence of vegetations. Patient will remain on Rocephin for now and Zithromax was discontinued. #2 postobstructive pneumonia right lung-again patient will remain on Rocephin and vancomycin at this time #3 bilateral pulmonary emboli-patient will remain on Eliquis #4 recently diagnosed adenocarcinoma of the right lung-complicates care, management, recovery, and prognosis #5 type 2 diabetes-fingerstick blood sugars will be monitored, sliding scale insulin will be administered as indicated #6 morbid obesity-complicates care, management, recovery, and prognosis #7 right pleural effusion-cytology is negative for cancer, continue to monitor as needed, this is probably a parapneumonic effusion #8 coronary artery disease-patient is currently on Lipitor and 81 mg aspirin daily Total clinical time spent by myself addressing the patient's medical issues, reviewing all of his data, and collaborating with patient's care team: 35 minutes Charges/Coding Visit Charges Inpatient E&M: 17787 Subs Hosp L2
[2024-05-08 17:47] LABS: Bedside Glucose 329 mg/dL (74-106)
[2024-05-08] MEDS: hydrOXYzine PAM 25 MG Capsule PO (21:00)
[2024-05-08] MEDS: Atorvastatin Calcium 40 MG Tablet PO (21:00)
[2024-05-08 21:36] LABS: Bedside Glucose 398 mg/dL (74-106)
[2024-05-09] MEDS: 0.9% Saline Lock 10 ML Syringe IV ×2 (00:53→09:57)
[2024-05-09] MEDS: Vancomycin HCl 2,000 MG in 0.9% Normal Saline (500mL Bag) 500 ML 250 MG IV ×2 (00:54→12:13)
[2024-05-09 03:00] VITALS: BP 152/91; PULSE 80; RESP 18; TEMP 36.3; O2SAT 98
[2024-05-09 07:07] VITALS: PULSE 93; RESP 20; O2SAT 98
[2024-05-09] MEDS: Ipratropium/Albuterol Sulfate 3 ML AMPUL.NEB INHALATION ×2 (07:07→13:06)
[2024-05-09] MEDS: Aspirin E.C. 81 MG Tablet PO (08:02)
[2024-05-09] MEDS: predniSONE 20 MG Tablet 40 MG PO (08:02)
[2024-05-09] MEDS: Insulin Lispro 100 UNIT/ML INSULN.PEN 10 UNIT SC ×2 (08:03→13:38)
[2024-05-09] MEDS: Loratadine 10 MG Tablet PO (08:03)
[2024-05-09] MEDS: Insulin Lispro 100 UNIT/ML INSULN.PEN SC ×2 (08:03→13:38)
[2024-05-09] MEDS: Insulin Glargine-YFGN 100 UNIT/ML Pen 35 UNIT SC (08:04)
[2024-05-09 08:11] LABS: Bedside Glucose 183 mg/dL (74-106)
[2024-05-09 09:00] VITALS: BP 101/69; PULSE 96; RESP 18; TEMP 36.7; O2SAT 97
[2024-05-09] MEDS: terbinafine HCL 250 MG TABLET PO (09:56)
[2024-05-09] MEDS: APIXABAN 5 MG TABLET 10 MG PO (09:56)
[2024-05-09] MEDS: Ceftriaxone 1 GM/50 ML BAG IV (09:59)
--- NOTE | 2024-05-09 10:02 | PN.CC_ITS ---
Assessment & Plan Assessment/Plan (1) Hypoxia: (2) Pulmonary embolism: (3) Pleural effusion: (4) Pneumonia: PLAN: Plan RECOMMENDATIONS: 1. Continue Eliquis as ordered. 2. Perform walking oximetry prior to consideration for discharge home. 3. Continue antimicrobials per ID recommendations. 4. Continue scheduled bronchodilators. 5. Continue prednisone 40 mg daily, with plans for a 5-day burst at discharge. 6. Resume triple therapy inhaler regimen at discharge. Follow-up in the pulmonary medicine clinic as scheduled. 7. Will sign off at this time. Call with any additional questions. IMPRESSIONS: 1. Shortness of breath and hypoxemia Multifactorial in etiology with underlying pleural effusion, postobstructive pneumonia and pulmonary embolism contributing. The patient is otherwise clinically stable on minimal supplemental O2. He does have known COPD and is currently on a triple therapy inhaler regimen at his baseline. The patient is status post ultrasound-guided thoracentesis, with exudative pleural effusion noted, most likely parapneumonic in etiology. Pleural fluid cytology was negative for malignancy. The patient will be continued on antimicrobials per the discretion of infectious diseases along with bronchodilators and prednisone. Continue systemic anticoagulation with Eliquis as ordered. Perform walking oximetry study prior to consideration for discharge home. Follow-up in the pulmonary medicine clinic as scheduled. 2. Morbid obesity/obstructive sleep apnea/diabetes mellitus/history of coronary artery disease status post CABG Complicates care, management, recovery and prognosis. Continue home medications as indicated. Continue PAP therapy with naps and nightly. This note was generated with [employer] dictation software. It may contain incorrect words, spelling, and punctuation that were not noted in checking the note before signing. Subjective Subjective The patient was seen and examined at the bedside this morning. Events from the last 24 hours have been reviewed. The patient is currently afebrile, hemodynamically stable and maintaining appropriate oxygen saturations on 2 L/min via nasal cannula. The patient feels overall well from a breathing perspective. Objective Data Objective Data The patient's most recent lab work, culture data and imaging studies have all been personally reviewed. Blood culture dated May 06 was positive for Staphylococcus lugdunensis. Repeat blood cultures are pending. Pleural fluid analysis is pending. Pleural fluid cytology was negative for malignancy. Vital Signs: Vital Signs Temp Pulse Resp BP Pulse Ox O2 Del Method O2 Flow Rate 98.1 F 96 18 101/69 97 Nasal Cannula 2 05/09/24 09:00 05/09/24 09:00 05/09/24 09:00 05/09/24 09:00 05/09/24 09:00 05/09/24 09:00 05/09/24 09:00 FiO2 98 05/08/24 07:35 Oxygen Flow Rate (L/min) [ 4 AMBULATING with Oxygen #1] Oxygen Flow Rate (L/min) [ 0 AMBULATING on Room Air] Oxygen Flow Rate (L/min) [At 0 REST on Room Air] Oxygen Flow Rate (L/min) 2 Oxygen Delivery Method Nasal Cannula Weight: 341 lb 4.409 oz Body Mass Index (BMI) 48.9 Intake & Output: Intake and Output for Last 24 Hours 05/07/24 05/08/24 05/09/24 23:59 23:59 23:59 Intake Total 1291.13 / 1291.13 1685 / 1685 660 / 660 Output Total 1445 / 1445 Balance -153.87 / -153.87 1685 / 1685 660 / 660 Lab / Micro Data Attestation: I reviewed the patient's lab results. 05/08/24 05:41 05/08/24 05:41 Labs: Laboratory Results - last 24 hr 05/07/24 09:08: Fl Pathologist Comment Reviewed 05/08/24 12:20: POC Glucose 374 H 05/08/24 17:04: POC Glucose 329 H 05/08/24 20:56: POC Glucose 398 H 05/09/24 07:48: POC Glucose 183 H Micro: Microbiology 05/07/24 09:08 Fluid - Thoracentesis Fluid Gram Stain - Final 05/07/24 09:08 Fluid - Thoracentesis Fluid Body Fluid Culture - Preliminary No growth-Final to follow 05/07/24 09:08 Fluid - Thoracentesis Fluid Anaerobic Culture - Preliminary No growth in 48 hours. 05/06/24 12:05 Blood Culture (Wb) - Anticubital Left Bacteria Detection (PCR) - Final Staphylococcus lugdunensis 05/06/24 12:05 Blood Culture (Wb) - Anticubital Left Blood Culture - Final Staphylococcus lugdunensis Physical Exam Const alert and no apparent distress Constitutional Narrative: Morbidly obese. General Appearance: cooperative HEENT normocephalic and head/scalp atraumatic Eyes PERRL, EOMs intact bilaterally and conjunctivae normal Neck supple General: trachea midline Chest inspection of chest normal Resp normal respiratory effort Auscultation: diminished lung sounds; Negative for rales, rhonchi or wheezes Cardio regular rate and regular rhythm GI normal to inspection, nondistended, normoactive bowel sounds Extremity no clubbing, cyanosis or edema Skin no rashes or lesions noted Neuro CN's II-XII intact bilaterally and no focal motor deficits Psych cooperative and affect normal Charges/Coding Visit Charges Inpatient E&M: 53440 Subs Hosp L2
[2024-05-09 13:06] VITALS: PULSE 89; RESP 20
--- NOTE | 2024-05-09 14:08 | CON.PCM.ID_ITS ---
Assessment & Plan Assessment/Plan (1) Acute hypoxemic respiratory failure: (2) Adenocarcinoma of right lung: (3) Pneumonia: PLAN: Feeling better, thoracentesis results pending. On ceftriaxone for pneumonia coverage. 1 of 1 bcx with staph lugdunensis, possible contaminant, but will treat as true pathogen. TTE showed no veg 05/06. Will stop vanc as it is a MS-CoNS. Plan on 7 days total course of abx, would finish course with po cefdinir 300mg bid. Will follow, thank you (4) Coag negative Staphylococcus bacteremia: HPI Consult Data Date of Consult: 05/09/24 HPI Narrative Reason for Consultation: bacteremia HPI Narrative: ALEKS COSTELLO, is a 73 M with COPD, recent dx lung adenocarcinoma. Has not started chemo or radiation yet. Port is planned. Had several days worsening dyspnea with cough and sputum. No fever or chills. No hemoptysis. Admitted on azithro/ceftriaxone, then vanc added with (+) bcx. Feeling much better s/p thora today. Full ROS performed and neg except as noted above. [facility] Medical History COPD (chronic obstructive pulmonary disease) Former smoker Diabetes Home Medications ?Medication ?Instructions ?Recorded ?Last Taken ?Type albuterol sulfate 2.5 mg/3 mL 2.5 mg inhalation Q6H PRN 05/02/18 05/06/24 History (0.083 %) solution for nebulization shortness of breath or wheezing aspirin 81 mg tablet,delayed 81 mg PO DAILY 05/02/18 05/06/24 History release furosemide 40 mg tablet 40 mg PO BID 05/02/18 05/06/24 History metformin 1,000 mg tablet 1,000 mg PO BID 05/02/18 05/06/24 History metoprolol tartrate 25 mg tablet 25 mg PO DAILY 05/02/18 05/06/24 History simvastatin 80 mg tablet 80 mg PO QHS 05/02/18 05/05/24 History insulin human U-100 NPH-regulr 1 sliding scale dose subcut BID 08/07/18 05/05/24 History 70-30 mix 100 unit/mL subcutaneous susp (Novolin 70/30 U-100 Insulin) albuterol sulfate 90 mcg/actuation 2 puff inhalation Q4H PRN 02/05/19 05/06/24 Rx aerosol inhaler (Ventolin HFA) shortness of breath or wheezing #18 grams losartan 50 mg tablet 50 mg PO DAILY 10/28/20 05/06/24 History terbinafine HCl 250 mg tablet 250 mg PO DAILY 02/14/21 05/06/24 History Symbicort 80 mcg-4.5 mcg/actuation 2 inh inhalation BID #3 ea 05/05/24 05/06/24 Rx HFA aerosol inhaler (budesonide-formoterol) cetirizine 10 mg tablet 10 mg PO DAILY 05/06/24 05/06/24 History clobetasol 0.05 % topical cream 1 applic topical BID 05/06/24 05/06/24 History hydroxyzine HCl 25 mg tablet 25 mg PO QHS 05/06/24 05/05/24 History semaglutide 2 mg/dose (8 mg/3 mL) 2 mg subcut TH 05/06/24 05/01/24 History subcutaneous pen injector (Ozempic) tiotropium bromide 18 mcg capsule 1 cap inhalation DAILY 05/06/24 05/06/24 History with inhalation device (Spiriva with HandiHaler) Allergy/AdvReac Type Severity Reaction Status Date / Time No Known Allergies Allergy Verified 05/06/24 10:06 Family History Father Heart disease Diabetes Brother Cancer Throat Grandmother Breast cancer Surgical History Hx of heart artery stent S/P CABG x 3 Social History Smoking Status: Former smoker pack-years: 55 Tobacco: How many years used: 35 how long ago did patient quit smokin second hand exposure: Yes alcohol intake: current alcohol intake frequency: holidays/special occasions only Alcohol type: beer substance use type: does not use caffeine: Yes what type of physical activity do you participate in: none Physical Exam Const alert, oriented x3 and no apparent distress General Appearance: cooperative HEENT normocephalic and head/scalp atraumatic Eyes PERRL and EOMs intact bilaterally Neck supple and No nodes Resp normal air movement and clear to auscultation bilaterally Resp Narrative: some decreased sounds in bases Cardio regular rate and regular rhythm GI soft to palpation, non-tender and non-distended Extremity General Extremity: edema Skin no rashes or lesions noted Neuro CN's II-XII intact bilaterally Lab / Micro Data Attestation: I reviewed the patient's lab results. 05/08/24 05:41 05/08/24 05:41 Labs: Laboratory Results - last 24 hr 05/07/24 09:08: Miscellaneous Cytology SEE PATHOLOGY REPORT 05/08/24 17:04: POC Glucose 329 H 05/08/24 20:56: POC Glucose 398 H 05/09/24 07:48: POC Glucose 183 H Micro: Microbiology 05/07/24 09:08 Fluid - Thoracentesis Fluid Gram Stain - Final 05/07/24 09:08 Fluid - Thoracentesis Fluid Body Fluid Culture - Preliminary No growth-Final to follow 05/07/24 09:08 Fluid - Thoracentesis Fluid Anaerobic Culture - Preliminary No growth in 48 hours. 05/06/24 12:05 Blood Culture (Wb) - Anticubital Left Bacteria Detection (PCR) - Final Staphylococcus lugdunensis 05/06/24 12:05 Blood Culture (Wb) - Anticubital Left Blood Culture - Final Staphylococcus lugdunensis
[2024-05-09 15:18] LABS: Bedside Glucose 271 mg/dL (74-106)
[2024-05-09 15:38] VITALS: BP 153/70; PULSE 92; RESP 16; TEMP 36.8; O2SAT 94
[2024-05-09 15:47] VITALS: O2SAT 86; O2SAT 90; O2SAT 94
--- NOTE | 2024-05-09 15:53 | PCM.HOSP.N ---
Hospitalist Note Oxygen testing reviewed, patient is ambulatory in the home and community and requires home oxygen with portability
--- NOTE | 2024-05-09 15:54 | DCINST_ITS ---
Discharge Instructions Diet Discharge Diet: 1800 Calorie Control Diet Activity Discharge Activity: Return to Normal Activity Weight Bearing Status: Full weight bearing Follow Up Care Test Results: Test results from this visit will be discussed in further detail at your follow- up appointment, if applicable. Discharge Plan Admission Admit Date/Time: 05/06/24 12:50 Primary Reason for Your Visit: Postobstructive pneumonia, hypoxia Attending Provider: Elias Sanchez Primary Care Provider: Adalid Cross Consulting Providers: Jaspreet Borges; Adalid Alvarez Instructions Patient Instructions: HARJIT RN Thoracentesis Dc Additional Instructions / Restrictions: Do not take any Aleve or ibuprofen while on Eliquis, you may notice easier bruising, if you see any abnormal bleeding, call your physician Use oxygen at 2 L/min while ambulating and at night while sleeping Discharge Orders/Prescriptions Prescriptions: New Eliquis 5 mg Tablet 10 mg PO BID Qty: 70 0RF Rx Instructions: Take 2 twice a day starting tonight for a total of 10 doses, then decrease the dose to 1 twice a day (5 mg twice a day) prednisone 20 mg Tablet 40 mg PO BREAKFAST Qty: 10 0RF cefdinir 300 mg capsule 300 mg PO BID Qty: 14 0RF Rx Instructions: start on 05/10/24 Continued furosemide 40 mg tablet 40 mg PO BID albuterol sulfate 2.5 mg /3 mL (0.083 %) solution for nebulization 2.5 mg INHALATION Q6H PRN (Reason: shortness of breath or wheezing) simvastatin 80 mg tablet 80 mg PO QHS aspirin 81 mg tablet,delayed release (DR/EC) 81 mg PO DAILY metformin 1,000 mg tablet 1,000 mg PO BID metoprolol tartrate 25 mg tablet 25 mg PO DAILY Novolin 70/30 U-100 Insulin 100 unit/mL (70-30) suspension 1 sliding scale dose SC BID Protocol: 6. Sliding Scale Insulin Custom Condition: mg/dl range Dose/Route: NUMBER OF UNITS AT BREAKFAST Instruction: NUMBER OF UNITS AT DINNER Condition: 0-60 Dose/Route: 0 Instruction: 0 Condition: 60-80 Dose/Route: 10 Instruction: 22 Condition: 81-120 Dose/Route: 22 Instruction: 38 Condition: 121-180 Dose/Route: 24 Instruction: 40 Condition: 181-240 Dose/Route: 26 Instruction: 42 Condition: 241-300 Dose/Route: 28 Instruction: 44 Condition: 301-400 Dose/Route: 30 Instruction: 46 Condition: 401+ Dose/Route: 32 Instruction: 48 Protocol Text: Custom Sliding Scale PT TAKES SLIDING SCALE TWICE DAILY AT BREAKFAST AND DINNER. albuterol sulfate [Ventolin HFA] 90 mcg/actuation HFA aerosol inhaler 2 puff INHALATION Q4H PRN (Reason: shortness of breath or wheezing) Qty: 18 11RF losartan 50 mg tablet 50 mg PO DAILY terbinafine HCl 250 mg tablet 250 mg PO DAILY hydroxyzine HCl 25 mg tablet 25 mg PO QHS cetirizine 10 mg tablet 10 mg PO DAILY clobetasol 0.05 % cream 1 applic topical BID Ozempic 2 mg/dose (8 mg/3 mL) pen injector 2 mg subcut TH tiotropium bromide [Spiriva with HandiHaler] 18 mcg capsule, w/inhalation device 1 cap INHALATION DAILY budesonide-formoterol [Symbicort] 80-4.5 mcg/actuation HFA aerosol inhaler 2 inh INHALATION BID Qty: 3 3RF Rx Instructions: 2 Puffs Inh BID j44.9 Referrals / Follow Up: Adalid Cross DO [Primary Care Provider] - Within 2 Weeks Lj Baum MD [Med Staff - Active Staff] - See Referral Note (As scheduled) René Gusman DO [Med Staff - Active Staff] - See Referral Note (As scheduled) Disposition Disposition (needs filled in before D/C Order can be placed): Home, Self Care
--- NOTE | 2024-05-09 16:15 | PCM.DC.SUM ---
Providers Date of Admission: 05/06/24 Date of Discharge: 05/09/24 Primary Care Physician: Dr. Adalid Cross, Consultations 05/06/24 13:59 Consult: Tourist [employer] / Pulmonary Medicine Routine Consulting Provider: Intensivists/Pulmonary Med Reason for Consult: b/l PE, postobstructive pna w/ recently dx lung adenoca EMERGENT Consult: No MD Notified: Yes Date Notified: 05/06/24 Time Notified: 12:58 Method of Notification: Text 05/08/24 12:00 Consult: Infectious Disease Routine Consulting Provider: Adalid Alvarez Reason for Consult: positive culture EMERGENT Consult: No Notified: Yes Date Notified: 05/08/24 Time Notified: 12:00 Method of Notification: Verbal Reason For Visit: BILATERAL PE, SUSPETED POSTOBSTRUCTIVE PENUMONIA Diagnosis Discharge Diagnosis (1) Acute hypoxemic respiratory failure: Status: Acute Code(s): J96.01 - Acute respiratory failure with hypoxia (2) Adenocarcinoma of right lung: Status: Acute Code(s): C34.91 - Malignant neoplasm of unspecified part of right bronchus or lung (3) Pneumonia: Status: Acute Code(s): J18.9 - Pneumonia, unspecified organism (4) Coag negative Staphylococcus bacteremia: Status: Acute Code(s): R78.81 - Bacteremia; B95.7 - Other staphylococcus as the cause of diseases classified elsewhere Plan 1. Bacteremia with staph lugdunensis-patient was placed on vancomycin today and infectious diseases will see the patient in consultation tomorrow, additional blood culture was ordered today before the vancomycin was given, patient had a recent echocardiogram which did not show evidence of vegetations. Patient will remain on Rocephin for now and Zithromax was discontinued. #2 postobstructive pneumonia right lung-again patient will remain on Rocephin and vancomycin at this time #3 bilateral pulmonary emboli-patient will remain on Eliquis #4 recently diagnosed adenocarcinoma of the right lung-complicates care, management, recovery, and prognosis #5 type 2 diabetes-fingerstick blood sugars will be monitored, sliding scale insulin will be administered as indicated #6 morbid obesity-complicates care, management, recovery, and prognosis #7 right pleural effusion-cytology is negative for cancer, continue to monitor as needed, this is probably a parapneumonic effusion #8 coronary artery disease-patient is currently on Lipitor and 81 mg aspirin daily #9 hypoxia secondary to postobstructive pneumonia, right-sided lung cancer, and pulmonary emboli Total clinical time spent by myself addressing the patient's medical issues, reviewing all of his data, and collaborating with patient's care team: 35 minutes Medications at Discharge Home Medications albuterol sulfate 2.5 mg/3 mL (0.083 %) solution for nebulization 2.5 mg inhalation Q6H PRN shortness of breath or wheezing 05/02/18 aspirin 81 mg tablet,delayed release 81 mg PO DAILY heart health 05/02/18 furosemide 40 mg tablet 40 mg PO BID diuretic 05/02/18 metformin 1,000 mg tablet 1,000 mg PO BID diabetes 05/02/18 metoprolol tartrate 25 mg tablet 25 mg PO DAILY blood pressure 05/02/18 simvastatin 80 mg tablet 80 mg PO QHS cholesterol 05/02/18 insulin human U-100 NPH-regulr 70-30 mix 100 unit/mL subcutaneous susp (Novolin 70/30 U-100 Insulin) 1 sliding scale dose subcut BID diabetes 08/07/18 albuterol sulfate 90 mcg/actuation aerosol inhaler (Ventolin HFA) 2 puff inhalation Q4H PRN shortness of breath or wheezing #18 grams 02/05/19 losartan 50 mg tablet 50 mg PO DAILY blood pressure 10/28/20 terbinafine HCl 250 mg tablet 250 mg PO DAILY fungal infection 02/14/21 Symbicort 80 mcg-4.5 mcg/actuation HFA aerosol inhaler (budesonide-formoterol) 2 inh inhalation BID breathing #3 ea 05/05/24 cetirizine 10 mg tablet 10 mg PO DAILY allergies 05/06/24 clobetasol 0.05 % topical cream 1 applic topical BID rash 05/06/24 hydroxyzine HCl 25 mg tablet 25 mg PO QHS allergies 05/06/24 semaglutide 2 mg/dose (8 mg/3 mL) subcutaneous pen injector (Ozempic) 2 mg subcut TH diabetes 05/06/24 tiotropium bromide 18 mcg capsule with inhalation device (Spiriva with HandiHaler) 1 cap inhalation DAILY breathing 05/06/24 apixaban 5 mg tablet (Eliquis) 10 mg (2 x 5 mg) PO BID #70 tabs 05/09/24 cefdinir 300 mg capsule 300 mg PO BID #14 caps 05/09/24 prednisone 20 mg tablet 40 mg (2 x 20 mg) PO BREAKFAST #10 tabs 05/09/24 Hospital Course Operations None Procedures 2-D Echocardiogram and Thoracentesis Summary of Care Provided Minutes Spent on Discharge: 32 Hospital Course: This 73-year-old white male was seen in the emergency room at [facility] with complaints of shortness of breath. He stated he had been short of breath for about the last week and a half, he was recently diagnosed with right-sided lung cancer and had not started treatment for this yet. Workup in the emergency room consisted of a CTA of the chest which showed evidence of pulmonary emboli bilaterally, there was also noted to be multilobular masses with secondary consolidation in the inferior aspect of the right upper lobe and the right hilar region, there was also a wedge-shaped area of consolidation in the periphery of the right upper lobe. Finally there was noted to be a moderate size right pleural effusion with partial loculation of the pleural fluid. Patient's white blood cell count was elevated at 13.8, chemistry profile showed an elevated potassium of 5.5 and BUN was 25. Blood sugar was 243. Patient required supplemental oxygen to maintain his pulse ox above 90%. Patient was admitted to PCU for postobstructive pneumonia from right sided lung cancer, pulmonary emboli, and hypoxia. He was placed on IV antibiotics and seen by pulmonary medicine. Patient underwent mapping for radiation while he was hospitalized. Patient had a right sided thoracentesis performed, the fluid was negative for tumor cells. Patient's blood culture grew out a staph species, infectious diseases was consulted and recommended oral antibiotics based on sensitivities. On 05/09/2024, patient was seen and examined: On examination he appeared in good health and spirits. Vital signs as documented. Skin warm and dry and without overt rashes. Neck without JVD, neck was supple, trachea midline, thyroid was normal. Lungs clear bilaterally, normal air movement was noted. Heart exam notable for regular rhythm, normal sounds and absence of murmurs, rubs or gallops. Abdomen unremarkable and without evidence of organomegaly, masses, or abdominal aortic enlargement. Bowel sounds are present, abdomen is not distended. Extremities nonedematous, no cyanosis was noted, no clubbing was noted. Neuro: Cranial nerves II through XII are grossly intact, no focal motor deficits were noted, sensation to light touch and pinprick intact, motor exam 5/5 throughout. Psych: Patient is alert and oriented x3, he does not appear anxious or depressed, he does not appear agitated. Patient appeared stable for discharge home on 05/09/2024, oxygen qualification was performed on the patient and he qualified for 2 L of oxygen on ambulation at the time of discharge. Weight / BMI Weight Weight: 154.8 kg Body Mass Index (BMI) 48.9 ABG / Lab / Microbiology Data 05/08/24 05:41 05/08/24 05:41 Laboratory: Laboratory Results - last 24 hr 05/07/24 09:08: Miscellaneous Cytology SEE PATHOLOGY REPORT 05/08/24 17:04: POC Glucose 329 H 05/08/24 20:56: POC Glucose 398 H 05/09/24 07:48: POC Glucose 183 H 05/09/24 11:15: POC Glucose 271 H Microbiology: Microbiology 05/07/24 09:08 Fluid - Thoracentesis Fluid Gram Stain - Final 05/07/24 09:08 Fluid - Thoracentesis Fluid Body Fluid Culture - Preliminary No growth-Final to follow 05/07/24 09:08 Fluid - Thoracentesis Fluid Anaerobic Culture - Preliminary No growth in 48 hours. 05/06/24 12:05 Blood Culture (Wb) - Anticubital Left Bacteria Detection (PCR) - Final Staphylococcus lugdunensis 05/06/24 12:05 Blood Culture (Wb) - Anticubital Left Blood Culture - Final Staphylococcus lugdunensis D/C Instructions Discharge Diet: 1800 Calorie Control Diet Weight Bearing Status: Full weight bearing Meaningful Use Info Meaningful Use Meaningful Use Diagnoses (Choose all that apply): None applicable Ischemic Stroke Statin Dosing Therapy Reference: STATIN DOSE THERAPY REFERENCE: * Patients > 75 years receive moderate or high dose statin therapy. * Patients 75 years or YOUNGER should receive HIGH intensity statin dose unless contraindicated. You will be required to document reason for non-treatment if statin daily dose does not meet guidelines. HIGH DOSE STATIN THERAPY DAILY Atorvastatin > than or = to 40 mg Rosuvastatin > than or = to 20 mg Amlodipine + Atorvastatin > than or = to 2.5/40 mg Ezetimibe + Simvastatin 10/80 mg Simvastatin 80mg Discharge Plan Admission Admit Date/Time: 05/06/24 12:50 Primary Reason for Your Visit: Postobstructive pneumonia, hypoxia Attending Provider: Elias Sanchez Primary Care Provider: Adalid Cross Consulting Providers: Jaspreet Borges; Adalid Alvarez Instructions Patient Instructions: HARJIT RN Thoracentesis Dc Additional Instructions / Restrictions: Do not take any Aleve or ibuprofen while on Eliquis, you may notice easier bruising, if you see any abnormal bleeding, call your physician Use oxygen at 2 L/min while ambulating and at night while sleeping Discharge Orders/Prescriptions Prescriptions: New Eliquis 5 mg Tablet 10 mg PO BID Qty: 70 0RF Rx Instructions: Take 2 twice a day starting tonight for a total of 10 doses, then decrease the dose to 1 twice a day (5 mg twice a day) prednisone 20 mg Tablet 40 mg PO BREAKFAST Qty: 10 0RF cefdinir 300 mg capsule 300 mg PO BID Qty: 14 0RF Rx Instructions: start on 05/10/24 Continued furosemide 40 mg tablet 40 mg PO BID albuterol sulfate 2.5 mg /3 mL (0.083 %) solution for nebulization 2.5 mg INHALATION Q6H PRN (Reason: shortness of breath or wheezing) simvastatin 80 mg tablet 80 mg PO QHS aspirin 81 mg tablet,delayed release (DR/EC) 81 mg PO DAILY metformin 1,000 mg tablet 1,000 mg PO BID metoprolol tartrate 25 mg tablet 25 mg PO DAILY Novolin 70/30 U-100 Insulin 100 unit/mL (70-30) suspension 1 sliding scale dose SC BID Protocol: 6. Sliding Scale Insulin Custom Condition: mg/dl range Dose/Route: NUMBER OF UNITS AT BREAKFAST Instruction: NUMBER OF UNITS AT DINNER Condition: 0-60 Dose/Route: 0 Instruction: 0 Condition: 60-80 Dose/Route: 10 Instruction: 22 Condition: 81-120 Dose/Route: 22 Instruction: 38 Condition: 121-180 Dose/Route: 24 Instruction: 40 Condition: 181-240 Dose/Route: 26 Instruction: 42 Condition: 241-300 Dose/Route: 28 Instruction: 44 Condition: 301-400 Dose/Route: 30 Instruction: 46 Condition: 401+ Dose/Route: 32 Instruction: 48 Protocol Text: Custom Sliding Scale PT TAKES SLIDING SCALE TWICE DAILY AT BREAKFAST AND DINNER. albuterol sulfate [Ventolin HFA] 90 mcg/actuation HFA aerosol inhaler 2 puff INHALATION Q4H PRN (Reason: shortness of breath or wheezing) Qty: 18 11RF losartan 50 mg tablet 50 mg PO DAILY terbinafine HCl 250 mg tablet 250 mg PO DAILY hydroxyzine HCl 25 mg tablet 25 mg PO QHS cetirizine 10 mg tablet 10 mg PO DAILY clobetasol 0.05 % cream 1 applic topical BID Ozempic 2 mg/dose (8 mg/3 mL) pen injector 2 mg subcut TH tiotropium bromide [Spiriva with HandiHaler] 18 mcg capsule, w/inhalation device 1 cap INHALATION DAILY budesonide-formoterol [Symbicort] 80-4.5 mcg/actuation HFA aerosol inhaler 2 inh INHALATION BID Qty: 3 3RF Rx Instructions: 2 Puffs Inh BID j44.9 Referrals / Follow Up: Lj Baum MD [Med Staff - Active Staff] - See Referral Note (As scheduled) Adalid Cross DO [Primary Care Provider] - 05/20/24 4:30 pm (Your appt is at the [employer] office ) René Gusman DO [Med Staff - Active Staff] - See Referral Note (As scheduled) Disposition Disposition (needs filled in before D/C Order can be placed): Home, Self Care Charges/Coding Visit Charges Inpatient E&M: 03479 Disch Hosp >30min
--- NOTE | 2024-05-09 16:30 | CASEMGMT ---
Patient has order for discharge. Patient will need oxygen at discharge. Script received, patient prefers [employer], referral sent via [employer]. Patient discharging on [facility] called, copay $166. ARTURO MARTIN in to discuss needs at discharge. Patient notified of oxygen setup. ARTURO MARTIN updated patient regarding Eliquis copay and saving card provided to patient. Patient and denied further questions or concerns.
== END 2024-05-09 17:10 | disposition home or self-care (01) | DRG 175 ==
LOC: ED 12:21 → PCU 13:19
PROVIDERS: Admitting Provider Hospitalist; Emergency Provider Emergency Medicine; PCP Preventive Medicine Occupational Medicine; Visit Provider Internal Medicine
DX: I26.99 Other pulmonary embolism without acute cor pulmonale (principal); J18.9 Pneumonia, unspecified organism; R78.81 Bacteremia; J44.0 Chronic obstructive pulmonary disease with (acute) lower respiratory infection; J91.8 Pleural effusion in other conditions classified elsewhere; E87.1 Hypo-osmolality and hyponatremia; C34.91 Malignant neoplasm of unspecified part of right bronchus or lung; Z68.42 Body mass index [BMI] 45.0-49.9, adult; E11.40 Type 2 diabetes mellitus with diabetic neuropathy, unspecified; I10 Essential (primary) hypertension; E11.65 Type 2 diabetes mellitus with hyperglycemia; G47.33 Obstructive sleep apnea (adult) (pediatric); Z79.4 Long term (current) use of insulin; E78.5 Hyperlipidemia, unspecified; E66.01 Morbid (severe) obesity due to excess calories; E87.5 Hyperkalemia; I25.10 Atherosclerotic heart disease of native coronary artery without angina pectoris; B95.7 Other staphylococcus as the cause of diseases classified elsewhere; Z95.1 Presence of aortocoronary bypass graft; Z95.5 Presence of coronary angioplasty implant and graft; Z79.01 Long term (current) use of anticoagulants; Z79.82 Long term (current) use of aspirin; Z79.84 Long term (current) use of oral hypoglycemic drugs; Z79.85 Long-term (current) use of injectable non-insulin antidiabetic drugs; Z79.899 Other long term (current) drug therapy; Z87.891 Personal history of nicotine dependence
CPT/HCPCS: 32555; 36415; 71046; 71275; 77014; 77290; 80048; 80076; 82962; 83605; 83615; 84157; 84484; 85025; 85027; 85610; 85730; 87040; 87070; 87075; 87149; 87186; 87205; 88108; 88305; 88313; 89050; 93005; 93306; 94640; 94668; 97802; 99285; J7040; J7050; Q9957; Q9967; A4216; C8929

== ENCOUNTER 2024-07-07 13:18 | Inpatient (IN) | payer MEDICARE, SELFPAY ==
[2024-07-07] VITALS (12 sets, daily range): BP systolic 104–171; BP diastolic 72–153; PULSE 112–128; RESP 16–24; TEMP 36.1–37; O2SAT 93–99; BMI 43.9
--- NOTE | 2024-07-07 13:53 | RAD_ITS ---
STUDY: X-RAY CHEST REASON FOR EXAM: Male, 74 years old. sob TECHNIQUE: Frontal and lateral views of the chest. COMPARISON: 05/07/2024. FINDINGS: Stable complex pulmonary opacities of the lower right lung suggestive of atelectasis or infiltrate with pleural effusion and likely pleural parenchymal scarring. Given patient''s history of lung cancer, masses right lung base cannot be excluded. Left lung is clear. Normal size heart. Previous CABG. Normal mediastinum and katrin. Normal visualized pulmonary arteries. Normal visualized aortic arch and descending thoracic aorta. Normal visualized thoracic spine. Normal visualized ribs, clavicles, and shoulders. There is no demonstrated abnormality of the visualized soft tissue structures of the upper abdomen. RAD/Chest PA and Lateral IMPRESSION: Grossly stable pulmonary and pleural densities in the lower right lung. No other changes or acute abnormalities. Electronically Signed: Amanuel Terrell MD at 16:15 EDT ,
--- NOTE | 2024-07-07 13:54 | EKG12_ITS ---
Test Reason : SOB Blood Pressure : / mmHG Vent. Rate : 120 BPM Atrial Rate : 120 BPM P-R Int : 156 ms QRS Dur : 088 ms QT Int : 428 ms P-R-T Axes : 070 056 080 degrees QTc Int : 604 ms Critical Test Result: Long QTc Sinus tachycardia Low voltage QRS Nonspecific T wave abnormality Prolonged QT Abnormal ECG Confirmed by Ramy Thompson ([id number]), multimedia editor DARBY DONOHUE ([id number]) on 07/08/2024 8:29:17 AM Referred By: PRATIK Confirmed By:Ramy Thompson
[2024-07-07 15:07] LABS: Absolute Lymphocyte Count 0.37 X10^3/uL (0.83-4.51); Absolute Neutrophil Count 2.7 X10^3/uL (2.0-7.7); Basophil# 0.04 X10^3/uL; Eosinophil# 0.01 X10^3/uL; Eosinophils% 0.2 % (0-5); Hematocrit 30.2 % (40-54); Hemoglobin 9.7 g/dL (13.0-16.5); Lymphocyte # 0.37 X10^3/ul (0.83-4.51); Lymphocyte % 8.8 % (19-41); Mean Corp Hgb Conc 32.1 g/dL (32-36); Mean Corpuscular Hgb 30.8 pg (27.0-32.0); Mean Corpuscular Volume 95.9 fL (80-94); Monocyte# 1.01 X10^3/uL; NRBC Flagged by Analyzer 0 % (0-5); Neutrophil # 2.67 X10^3/uL (2.7-7.7); Neutrophil % 63.4 % (47-70); POSITIVE DIFFERENTIAL YES; POSITIVE MORPHOLOGY YES; Platelet Count 188 K/mm3 (150-450); RBC Distribution Width CV 20.9 % (11.6-14.6); RBC Distribution Width SD 68.5 fl (35.1-43.9); Red Blood Count 3.15 M/mm3 (4.6-6.2); White Blood Count 4.2 K/mm3 (4.4-11.0)
[2024-07-07 15:08] LABS: Differential Indicated SCAN CRITERIA MET
[2024-07-07 15:23] LABS: Anion Gap 8 (5-15); BUN 10 mg/dL (7-18); BUN/Creat Ratio 9.8 RATIO (10-20); Calcium,Total 9.4 mg/dL (8.5-10.1); Chloride 101 mmol/L (98-107); Creatinine, Serum 1.02 mg/dL (0.70-1.30); EST Glomerular Filtration Rate 76 mL/min (>60); Est Glom Filt Rate - Afr Amer 92 mL/min (>60); Glucose 211 mg/dL (74-106); Potassium 4.2 mmol/L (3.5-5.1); Sodium Level 135 mmol/L (136-145); Troponin-I HS 10 pg/mL (3.0-78.0)
--- NOTE | 2024-07-07 15:30 | ED.VIS.DYS ---
HPI History of Present Illness Chief Complaint: Weakness Informant: patient, spouse/S.O. and PCP Narrative Narrative: 74-year-old male has had worsening generalized weakness, easily fatigued, dyspnea on exertion for the past week or more. He has a history of non-small cell lung cancer mostly limited to the right lung/hilum. He denies having chest pains. He denies any new edema to the legs or pains there, or pain anywhere else. Just fatigue. No fevers or chills. States occasional cough that is chronic numbness early worse than usual and denies any new sputum production or color changes. No hemoptysis. He was seen in the office today, he was tachycardic at rest and his blood pressure was soft. He had chemotherapy and radiation last about 2 weeks ago, he is having odynophagia and trouble eating because of the throat pain from the radiation, but states he has been drinking fluids. [facility] Medical History Shortness of breath at rest Wears glasses Wears dentures Alcohol use History of steroid therapy Insulin dependent diabetes mellitus High cholesterol Back pain Syncope Dietary restriction Heartburn CPAP (continuous positive airway pressure) dependence Cancer On home oxygen therapy Chronic cough Leg cramps History of edema History of echocardiogram History of stress test Cardiology follow-up encounter Coag negative Staphylococcus bacteremia Hypoxia Acute hypoxemic respiratory failure Pulmonary embolism Pleural effusion Pneumonia Adenocarcinoma of right lung COPD (chronic obstructive pulmonary disease) Former smoker Diabetes Home Medications ?Medication ?Instructions ?Recorded ?Last Taken ?Type albuterol sulfate 2.5 mg/3 mL 2.5 mg inhalation Q6H PRN 05/02/18 06/27/24 History (0.083 %) solution for nebulization shortness of breath or wheezing aspirin 81 mg tablet,delayed 81 mg PO DAILY heart health 05/02/18 07/06/24 History release furosemide 40 mg tablet 40 mg PO BID diuretic 05/02/18 07/04/24 History metoprolol tartrate 25 mg tablet 25 mg PO DAILY blood pressure 05/02/18 06/23/24 History simvastatin 80 mg tablet 80 mg PO QHS cholesterol 05/02/18 07/06/24 History insulin human U-100 NPH-regulr 1 sliding scale dose subcut BID 08/07/18 07/04/24 History 70-30 mix 100 unit/mL subcutaneous diabetes susp (Novolin 70/30 U-100 Insulin) semaglutide 2 mg/dose (8 mg/3 mL) 2 mg subcut SA diabetes 05/06/24 07/03/24 History subcutaneous pen injector (Ozempic) Symbicort 80 mcg-4.5 mcg/actuation 2 inh inhalation BID breathing #3 05/13/24 07/06/24 Rx HFA aerosol inhaler ea (budesonide-formoterol) tiotropium bromide 18 mcg capsule 1 cap inhalation DAILY #90 05/13/24 07/06/24 Rx with inhalation device (Spiriva inhalations with HandiHaler) albuterol sulfate 90 mcg/actuation 2 puff inhalation Q4H PRN 05/20/24 07/07/24 Rx aerosol inhaler (Ventolin HFA) shortness of breath or wheezing #18 grams ondansetron 8 mg disintegrating 8 mg PO Q8H PRN nausea and 06/23/24 07/03/24 Rx tablet vomiting #30 tabs oxycodone 5 mg/5 mL oral solution 5 mg (5 mL) PO Q4H PRN pain 14 07/02/24 07/04/24 Rx days #250 mL apixaban 5 mg tablet (Eliquis) 5 mg PO BID 07/07/24 07/06/24 History bupropion HCl 150 mg 24 hr tablet, 150 mg PO DAILY 07/07/24 07/06/24 History extended release losartan 50 mg tablet 50 mg PO DAILY 07/07/24 06/22/24 History metformin 1,000 mg tablet 1,000 mg PO BID 07/07/24 06/30/24 History Allergy/AdvReac Type Severity Reaction Status Date / Time No Known Allergies Allergy Verified 07/07/24 13:32 Family History Father Heart disease Diabetes Brother Cancer Throat Grandmother Breast cancer Surgical History History of coronary artery stent placement Hx of surgical biopsy S/P CABG x 3 Social History Smoking Status: Former smoker pack-years: 55 Tobacco: How many years used: 35 how long ago did patient quit smokin second hand exposure: Yes alcohol intake: current alcohol intake frequency: holidays/special occasions only Alcohol type: beer substance use type: does not use caffeine: Yes what type of physical activity do you participate in: none ROS ROS ED Constitutional Constitutional ED: Reports fatigue and weakness; Denies chills or fever(s) Eyes Eyes: Denies change in vision or diplopia ENT ENT ED: Reports sore throat; Denies ear pain or rhinorrhea Cardiovascular Cardiovascular: Denies chest pain, orthopnea or palpitations Respiratory/Chest Respiratory/Chest: Reports cough, dyspnea and dyspnea on exertion; Denies orthopnea or sputum Gastrointestinal Gastrointestinal: Denies abdominal pain, diarrhea, nausea or vomiting Genitourinary Genitourinary ED: Denies dysuria or hematuria Musculoskeletal Musculoskeletal: Denies back pain or neck pain Integumentary Denies abscess or rash Neurologic Neurologic: Denies headache(s), paresthesias or weakness Psychiatric Psychiatric: Denies anxiety or suicidal thoughts EXAM Physical Exam Const Vital Signs: 07/07/24 13:20 07/07/24 13:27 07/07/24 13:31 Temperature 98.1 F Temperature Source Oral Pulse Rate 121 H Respiratory Rate 22 H Respiratory Effort Short of Breath Short of Breath Respiratory Depth Normal Respiratory Pattern Normal Normal Blood Pressure 171/153 H Blood Pressure Mean 159 Pulse Ox 97 Oxygen Delivery Method Room Air Room Air 07/07/24 13:54 07/07/24 14:19 07/07/24 15:00 Temperature Temperature Source Pulse Rate 115 H 116 H Respiratory Rate 24 H 16 Respiratory Effort Respiratory Depth Respiratory Pattern Blood Pressure 107/77 149/83 H Blood Pressure Mean 87 105 Pulse Ox 93 95 99 Oxygen Delivery Method Room Air Room Air Positive well nourished and well developed General Appearance ED: well developed and NAD HEENT Reports moist mucous membranes normocephalic and atraumatic Eyes PERRL and EOMs intact bilaterally Neck full ROM and supple Resp normal respiratory effort Resp Narrative: Decreased breath sounds at the right base but otherwise clear Effort and Inspection: able to speak in complete sentences Cardio regular rate, regular rhythm and no murmurs Rate: tachycardic GI non-tender and non-distended Auscultation: normoactive bowel sounds Palpation: soft Back/Spine no CVA tenderness General Back: other FROM Extremity normal to inspection General Extremety ED: Yes edema; Negative for pulses abnormal or tenderness General Extremity: edema bilateral lower extremity Details: mild (Symmetric, nontender no calf tenderness or cords); Negative for pulses abnormal Neuro oriented x3, CN's II-XII intact bilaterally and no sensory deficits noted Sensorium / Orientation: awake and alert Motor Exam: general weakness Psych mental status grossly normal Skin no rashes or lesions noted and no wounds MDM MDM MDM Narrative Medical decision making narrative: Obtain labs that show nothing acute except for a few immature granulocytes but no other signs of a leftward shift, troponin is normal, EKG shows sinus tachycardia but otherwise normal. Ordered a BNP but the machine is down so there will be a delay in getting the results. Obtain 2 view chest x-ray, on my interpretation it shows a right lower lobe infiltrate versus atelectasis with a small parapneumonic effusion. I am interpreting this as pneumonia. The patient states on reexamination that he coughed some sputum up and he started breathing better and his pulse decreased some. He is very dyspneic with any exertion, they agree with my recommendation for admitting him to the hospital. Levaquin started. He is not hypoxemic at rest. Discussed with hospitalist who requested a plain chest CT for further evaluation of the right hemithorax which will also be obtained before the patient is admitted. Of note did not obtain lactic acid because his blood pressures have been excellent here, his pulse has come down without acute intervention, and he is well-appearing at rest. Lab Data Attestation: I reviewed the patient's lab results. Labs: Laboratory Results - last 24 hr 07/07/24 14:57 WBC 4.2 L RBC 3.15 L Hgb 9.7 L Hct 30.2 L MCV 95.9 H MCH 30.8 MCHC 32.1 RDW Std Deviation 68.5 H RDW Coeff of Ino 20.9 H Plt Count 188 MPV 10.0 Immature Gran % (Auto) 2.600 H Neut % (Auto) 63.4 Lymph % (Auto) 8.8 L [place] % (Auto) 24.0 H Eos % (Auto) 0.2 Baso % (Auto) 1.0 Absolute Neuts (auto) 2.7 Absolute Lymphs (auto) 0.37 L Nucleated RBC % 0 Differential Comment SEE COMMENTS Platelet Estimate ADEQUATE RBC Morphology N CHROM Polychromasia RARE Anisocytosis 1+ Macrocytosis 1+ Ovalocytes RARE Sodium 135 L Potassium 4.2 Chloride 101 Carbon Dioxide 26.0 Anion Gap 8 BUN 10 Creatinine 1.02 Est GFR (MDRD) Af Amer 92 Est GFR (MDRD) Non-Af 76 BUN/Creatinine Ratio 9.8 L Glucose 211 H Calcium 9.4 Troponin I High Sens 10 Rhythm Strip Rhythm Strip: Sinus Tach Rate: 120 Ectopy: None Management Discussion w/another healthcare provider: Hospitalist Discharge Plan Triage Chief Complaint: Weakness Other Complaint: Shortness of Breath ED Provider: Tono Sheldon Dx/Rx/DC Orders Clinical Impression: Acute respiratory insufficiency, Non-small cell cancer of right lung, Pneumonia, Parapneumonic effusion, Acquired immunocompromised state Prescriptions: No Action furosemide 40 mg tablet 40 mg PO BID albuterol sulfate 2.5 mg /3 mL (0.083 %) solution for nebulization 2.5 mg INHALATION Q6H PRN (Reason: shortness of breath or wheezing) simvastatin 80 mg tablet 80 mg PO QHS aspirin 81 mg tablet,delayed release (DR/EC) 81 mg PO DAILY metoprolol tartrate 25 mg tablet 25 mg PO DAILY Novolin 70/30 U-100 Insulin 100 unit/mL (70-30) suspension 1 sliding scale dose SC BID Protocol: 6. Sliding Scale Insulin Custom Condition: mg/dl range Dose/Route: NUMBER OF UNITS AT BREAKFAST Instruction: NUMBER OF UNITS AT DINNER Condition: 0-60 Dose/Route: 0 Instruction: 0 Condition: 60-80 Dose/Route: 10 Instruction: 22 Condition: 81-120 Dose/Route: 22 Instruction: 38 Condition: 121-180 Dose/Route: 24 Instruction: 40 Condition: 181-240 Dose/Route: 26 Instruction: 42 Condition: 241-300 Dose/Route: 28 Instruction: 44 Condition: 301-400 Dose/Route: 30 Instruction: 46 Condition: 401+ Dose/Route: 32 Instruction: 48 Protocol Text: Custom Sliding Scale PT TAKES SLIDING SCALE TWICE DAILY AT BREAKFAST AND DINNER. MAGIC MOUTH WASH (BMX) 180 mL suspension 15 ml PO .qid PRN (Reason: pain) Qty: 180 5RF Rx Instructions: diphenhydramine 12.5 mg/5 mL oral liquid 60 mL; aluminum-mag hydroxide-simethicone 400 mg-400 mg-40 mg/5 mL oral susp 60 mL; Lidocaine Viscous 2 % mucosal solution 60 mL; Per 180 mL ondansetron 8 mg tablet,disintegrating 8 mg PO Q8H PRN (Reason: nausea and vomiting) Qty: 30 1RF Ozempic 2 mg/dose (8 mg/3 mL) pen injector 2 mg subcut SA Eliquis 5 mg Tablet 10 mg PO BID Qty: 70 0RF Rx Instructions: Take 2 twice a day starting tonight for a total of 10 doses, then decrease the dose to 1 twice a day (5 mg twice a day) losartan 50 mg tablet 50 mg PO DAILY metformin 1,000 mg tablet 1,000 mg PO BID bupropion HCl 150 mg tablet extended release 24 hr 150 mg PO DAILY budesonide-formoterol [Symbicort] 80-4.5 mcg/actuation HFA aerosol inhaler 2 inh INHALATION BID Qty: 3 3RF Rx Instructions: 2 Puffs Inh BID j44.9 tiotropium bromide [Spiriva with HandiHaler] 18 mcg capsule, w/inhalation device 1 cap INHALATION DAILY Qty: 90 3RF albuterol sulfate [Ventolin HFA] 90 mcg/actuation HFA aerosol inhaler 2 puff INHALATION Q4H PRN (Reason: shortness of breath or wheezing) Qty: 18 11RF oxycodone 5 mg/5 mL solution 5 mg PO Q4H PRN (Reason: pain) 14 Days Qty: 250 0RF Primary Care Provider: Adalid Cross Referrals: Adalid Cross DO [Primary Care Provider] - Print Language: Bulgarian
[2024-07-07 15:41] LABS: Anisocytosis 1+; Differential Comment SEE COMMENTS; Macrocytosis 1+; Ovalocyte RARE; Platelet Estimate ADEQUATE (ADEQ); Polychromasia RARE; Red Cell Morphology N CHROM NORMAL (NORM C&C)
--- NOTE | 2024-07-07 16:10 | CT_ITS ---
INDICATION: sob, abn CXR EXAMINATION: CT CHEST WITHOUT CONTRAST - CT Chest W/O Contrast Injection TECHNIQUE: Helically acquired images were obtained of the chest. A radiation dose optimization technique was used for this scan. IV Contrast dosage and agent: None. COMPARISON: 05/06/2024. FINDINGS: LUNGS, PLEURA AND LARGE AIRWAYS: Probable hyperexpansion consistent with COPD. Mild diffuse interstitial thickening. Prominent pleural thickening and small effusion in the mid and lower right hemithorax, significantly improved. Prominent peripheral fibrosis of the mid and lower right lung. Complex 5.8 cm peripherally situated mixed density mass with some cystic/cavitary components, not present previously. This could be an unusual area of scarring or could be neoplastic. Additionally there is a 5.2 cm spiculated mass density in the center of the right lung anterior to and probably involving the right hilum. This appearance suggests neoplasm. No definite inflammatory infiltrates. Left lung is clear. No pneumothorax. THYROID: No thyroid lesions. HEART AND PERICARDIUM: Heart size is normal. No pericardial effusion. CORONARY ARTERIES: Coronary artery calcification is seen. VESSELS: Thoracic aorta is not dilated. There is prominent calcified plaque. MEDIASTINUM AND DENIS: Evaluation of the denis is limited by the absence of IV contrast. There is likely malignant mass or fibrosis in and around the right hilum. Esophagus is unremarkable. No hiatal hernia. UPPER ABDOMEN: No acute pathology. There is cholelithiasis. BONES: No suspicious lytic or blastic abnormality. CT/Chest without Contrast IMPRESSION: There has been significant improvement since prior exam. However there is persistent pleural thickening and/or small effusion of the posterolateral lower right hemithorax. There is probable malignant mass versus fibrosis anterior to and involving the right hilum. Atypical mixed density possible mass in the periphery of the lateral lower right lung. If clinically indicated, PET scan should be considered to evaluate for possibility of active malignancy. Electronically Signed: Amanuel Terrell MD at 17:16 EDT ,
[2024-07-07 16:48] LABS: Phosphorus 2.4 mg/dL (2.5-4.9)
--- NOTE | 2024-07-07 16:51 | HP.PCM.HOS_ITS ---
[facility] - General General Date of Admission: 07/07/24 Date of Service: 07/07/24 Chief Complaint: Shortness of breath, worsening for 1 and half weeks. HPI Narrative ALEKS COSTELLO, is a 74 M with history of COPD and lung cancer came to ED with shortness of breath, progressive worsening for 1 and half weeks. For last 3 to 4 days patient is even short of breath at rest. Patient completed chemoradiation on June 25. He had a follow-up with oncology office with [facility] and was sent to ED for evaluation of shortness of breath. Patient also feels very dehydrated and urine is dark yellow. He also complained of right lower tingling sensation/slight pain and attributes to his radiation. Denies fever or chills. Complain of cough for 1 week with thick creamy whitish sputum production. Patient has decreased oral intake. Generalized weakness with loss of energy not able to ambulate without shortness. Chest x-ray done in the ED is of poor quality, underventilated with obscuring of right lung base. Vitals in ED shows patient is tachycardic, tachypneic but no hypoxia. Blood pressure elevated [facility] Medical History Shortness of breath at rest Wears glasses Wears dentures Alcohol use History of steroid therapy Insulin dependent diabetes mellitus High cholesterol Back pain Syncope Dietary restriction Heartburn CPAP (continuous positive airway pressure) dependence Cancer On home oxygen therapy Chronic cough Leg cramps History of edema History of echocardiogram History of stress test Cardiology follow-up encounter Coag negative Staphylococcus bacteremia Hypoxia Acute hypoxemic respiratory failure Pulmonary embolism Pleural effusion Pneumonia Adenocarcinoma of right lung COPD (chronic obstructive pulmonary disease) Former smoker Diabetes Home Medications ?Medication ?Instructions ?Recorded ?Last Taken ?Type albuterol sulfate 2.5 mg/3 mL 2.5 mg inhalation Q6H PRN 05/02/18 06/27/24 History (0.083 %) solution for nebulization shortness of breath or wheezing aspirin 81 mg tablet,delayed 81 mg PO DAILY heart health 05/02/18 07/06/24 History release furosemide 40 mg tablet 40 mg PO BID diuretic 05/02/18 07/04/24 History metoprolol tartrate 25 mg tablet 25 mg PO DAILY blood pressure 05/02/18 06/23/24 History simvastatin 80 mg tablet 80 mg PO QHS cholesterol 05/02/18 07/06/24 History insulin human U-100 NPH-regulr 1 sliding scale dose subcut BID 08/07/18 07/04/24 History 70-30 mix 100 unit/mL subcutaneous diabetes susp (Novolin 70/30 U-100 Insulin) semaglutide 2 mg/dose (8 mg/3 mL) 2 mg subcut SA diabetes 05/06/24 07/03/24 History subcutaneous pen injector (Ozempic) Symbicort 80 mcg-4.5 mcg/actuation 2 inh inhalation BID breathing #3 05/13/24 07/06/24 Rx HFA aerosol inhaler ea (budesonide-formoterol) tiotropium bromide 18 mcg capsule 1 cap inhalation DAILY #90 05/13/24 07/06/24 Rx with inhalation device (Spiriva inhalations with HandiHaler) albuterol sulfate 90 mcg/actuation 2 puff inhalation Q4H PRN 05/20/24 07/07/24 Rx aerosol inhaler (Ventolin HFA) shortness of breath or wheezing #18 grams ondansetron 8 mg disintegrating 8 mg PO Q8H PRN nausea and 06/23/24 07/03/24 Rx tablet vomiting #30 tabs oxycodone 5 mg/5 mL oral solution 5 mg (5 mL) PO Q4H PRN pain 14 07/02/24 07/04/24 Rx days #250 mL apixaban 5 mg tablet (Eliquis) 5 mg PO BID 07/07/24 07/06/24 History bupropion HCl 150 mg 24 hr tablet, 150 mg PO DAILY 07/07/24 07/06/24 History extended release losartan 50 mg tablet 50 mg PO DAILY 07/07/24 06/22/24 History metformin 1,000 mg tablet 1,000 mg PO BID 07/07/24 06/30/24 History Allergy/AdvReac Type Severity Reaction Status Date / Time No Known Allergies Allergy Verified 07/07/24 13:32 Family History Father Heart disease Diabetes Brother Cancer Throat Grandmother Breast cancer Surgical History History of coronary artery stent placement Hx of surgical biopsy S/P CABG x 3 Social History Smoking Status: Former smoker pack-years: 55 Tobacco: How many years used: 35 how long ago did patient quit smokin second hand exposure: Yes alcohol intake: current alcohol intake frequency: holidays/special occasions only Alcohol type: beer substance use type: does not use caffeine: Yes what type of physical activity do you participate in: none ROS ROS Narrative Constitutional: Reports fatigue and weakness. No fever. HEENT: Reports systems reviewed and no addt'l complaints, except as documented Respiratory/Chest: As described in HPI CVS: CABG history. CAD Gastrointestinal: Denies coffee ground emesis, hematemesis or vomiting Genitourinary: Denies burning urination or new urinary tract symptoms Musculoskeletal: Denies acute joint pain or limited range of motion. No acute injury Neurologic: Denies seizure-like symptoms. skin: No ulcer. No rash Endocrinology: Reports systems reviewed and no addt'l complaints, except as documented Hematologic/Lymphatic: Reports systems reviewed and no addt'l complaints, except as documented Rest 14 ROS are negative except as mentioned in HPI Vital Signs Vital Signs Vital Signs: 07/07/24 13:20 07/07/24 13:27 07/07/24 13:31 Temperature 98.1 F Temperature Source Oral Pulse Rate 121 H Respiratory Rate 22 H Respiratory Effort Short of Breath Short of Breath Respiratory Depth Normal Respiratory Pattern Normal Normal Blood Pressure 171/153 H Blood Pressure Mean 159 Pulse Ox 97 Oxygen Delivery Method Room Air Room Air 07/07/24 13:54 07/07/24 14:19 07/07/24 15:00 Temperature Temperature Source Pulse Rate 115 H 116 H Respiratory Rate 24 H 16 Respiratory Effort Respiratory Depth Respiratory Pattern Blood Pressure 107/77 149/83 H Blood Pressure Mean 87 105 Pulse Ox 93 95 99 Oxygen Delivery Method Room Air Room Air Physical Exam Narrative General: Alert, Oriented x3, Cooperative HEENT: Atraumatic, PERRLA, EOMI, Normocephalic Oral: Oral mucosa dry no Gingival or Mucosal Lesions/ Ulcerations Neck: Supple, No JVD, Negative Carotid Bruits Chest wall/Lungs: Air entry diminished in right lung base. No acute tenderness. Dyspnea at rest present. No crepitation or rhonchi Cardiovascular: Sinus tachycardia, Normal S1, Normal S2, No M/G/R. CABG scar Abdomen: Bowel Sounds Present, Soft, Non Tender, Non-Distended : No dysuria. No renal angle tenderness. No suprapubic tenderness. Extremities: No edema, Capillary Refill Less than 3 Seconds Skin: No rashes, No breakdown Musculoskeletal: No Tenderness to Palpation of Joints or Extremities. Degenerative arthritis. Muscle strength 4/5 at major joint Neurological: Cranial nerves II-XII grossly intact, DTR 2+/4. No acute focal neurological deficit. Psych/Mental Status: Normal Affect, Appropriate. Results Lab / Micro Data 07/07/24 14:57 07/07/24 14:57 Labs: Laboratory Results - last 24 hr 07/07/24 14:57: WBC 4.2 L, RBC 3.15 L, Hgb 9.7 L, Hct 30.2 L, MCV 95.9 H, MCH 30.8, MCHC 32.1, RDW Std Deviation 68.5 H, RDW Coeff of Ino 20.9 H, Plt Count 188, MPV 10.0, Immature Gran % (Auto) 2.600 H, Neut % (Auto) 63.4, Lymph % (Auto) 8.8 L, [place] % (Auto) 24.0 H, Eos % (Auto) 0.2, Baso % (Auto) 1.0, Absolute Neuts (auto) 2.7, Absolute Lymphs (auto) 0.37 L, Nucleated RBC % 0, Differential Comment SEE COMMENTS, Platelet Estimate ADEQUATE, RBC Morphology N CHROM, Polychromasia RARE, Anisocytosis 1+, Macrocytosis 1+, Ovalocytes RARE, S odium 135 L, Potassium 4.2, Chloride 101, Carbon Dioxide 26.0, Anion Gap 8, BUN 10, Creatinine 1.02, Est GFR (MDRD) Af Amer 92, Est GFR (MDRD) Non-Af 76, B UN/Creatinine Ratio 9.8 L, Glucose 211 H, Calcium 9.4, Phosphorus 2.4 L, Magnesium 2.0, Troponin I High Sens 10 Rhythm Strip Rhythm Strip: Sinus Tach Rate: 120 Ectopy: None Imaging Radiology Impression Chest X-Ray 07/07/24 13:53 IMPRESSION: Grossly stable pulmonary and pleural densities in the lower right lung. No other changes or acute abnormalities. Electronically Signed: Amanuel Terrell MD at 16:15 EDT , Assessment & Plan Assessment/Plan (1) Pneumonia: QUALIFIERS: Pneumonia type: due to unspecified organism PLAN: Plan This is 80-year-old gentleman with history of COPD, lung cancer recently completed chemoradiation came with progressive worsening of shortness of breath 1. Progressive dyspnea, exact etiology unclear suspect right lung base pneumonia: Patient is being admitted in PCU. Chest x-ray initially reviewed and is of suboptimal quality. Right lung base with increased pleural density, obscured and reported pulmonary pleural density but grossly stable. CT chest without contrast is ordered by ED physician. Chest CT scan shows atelectasis with pleural thickening and scarring. Official report pending. Pneumonia workup ordered. Patient was given levofloxacin 1 dose in ED. Started on ceftriaxone and azithromycin. 2. Recent diagnosis of PE: Patient was identified pulmonary embolism bilateral in April 2024. CTA chest April 2024 reported partially occlusive thrombi/embolic secondary peripheral artery branches of bilateral pulmonary artery to bilateral lower lobes, lingula and right middle lobe. As per oncology note, since patient not adherent to Eliquis. Continue Eliquis. 3. Chronic lung conditions: COPD, NSCLC adenocarcinoma, probably T1 N2 M0, clinically stage IIIa: Patient completed 7 weeks of Taxol carboplatin weekly with radiation therapy on 07-17. Patient also has odynophagia. Speech therapy ordered. Complain of mild right lower chest pain and attributes to radiotherapy. Patient did quit smoking in 2008. 4. Type 2 diabetes mellitus: Accu-Chek before meals and at bedtime with Humalog sliding scale coverage and hypoglycemia protocol. 5. CAD status post CABG: Patient on aspirin 81 mg daily and atorvastatin. 2D echo in April 2024 shows normal LV size with EF 60%. 6. Recent history of bacteremia with staph lugdunensis: On previous admission in April 2024 patient was evaluated by ID and treated with Rocephin and vancomycin. 2D echo did not show vegetation. patient was placed on vancomycin today and infectious diseases will see the patient in consultation tomorrow, additional blood culture was ordered today before the vancomycin was given, patient had a recent echocardiogram which did not show evidence of vegetations. Patient will remain on Rocephin for now and Zithromax was discontinued. Laboratory Results 07/07/24 14:57: WBC 4.2 L, RBC 3.15 L, Hgb 9.7 L, Hct 30.2 L, MCV 95.9 H, MCH 30.8, MCHC 32.1, RDW Std Deviation 68.5 H, RDW Coeff of Ino 20.9 H, Plt Count 188, MPV 10.0, Immature Gran % (Auto) 2.600 H, Neut % (Auto) 63.4, Lymph % (Auto) 8.8 L, [place] % (Auto) 24.0 H, Eos % (Auto) 0.2, Baso % (Auto) 1.0, Absolute Neuts (auto) 2.7, Absolute Lymphs (auto) 0.37 L, Nucleated RBC % 0, Differential Comment SEE COMMENTS, Platelet Estimate ADEQUATE, RBC Morphology N CHROM, Polychromasia RARE, Anisocytosis 1+, Macrocytosis 1+, Ovalocytes RARE, Sodium 135 L, Potassium 4.2, Chloride 101, Carbon Dioxide 26.0, Anion Gap 8, BUN 10, Creatinine 1.02, Est GFR (MDRD) Af Amer 92, Est GFR (MDRD) Non-Af 76, B UN/Creatinine Ratio 9.8 L, Glucose 211 H, Calcium 9.4, Phosphorus 2.4 L, Magnesium 2.0, Troponin I High Sens 10, B-Natriuretic Peptide Pending Clinical Impression(s) from Imaging Studies Chest X-Ray 07/07/24 13:53 IMPRESSION: Grossly stable pulmonary and pleural densities in the lower right lung. No other changes or acute abnormalities. Echo April 2020 Interpretation Summary Normal LV size. Left ventricular systolic function is normal. The left ventricular ejection fraction is 60 %. Pulmonary artery systolic pressure is 30 mmHg. Contrast injection was performed. Charges/Coding Visit Charges Inpatient E&M: 72397 Init Hosp L3 Procedures Hospitalists Procedures: 13334 Advncd Care Plan 30 Min
[2024-07-07] MEDS: levoFLOXacin IV 750 MG/150 ML BAG 100 MG IV (17:50)
[2024-07-07] MEDS: guaiFENesin 1,200 MG Tablet 1200 MG PO (20:14)
[2024-07-07] MEDS: Atorvastatin Calcium 40 MG Tablet PO (20:15)
[2024-07-07] MEDS: APIXABAN 5 MG TABLET PO (20:15)
[2024-07-07] MEDS: Na Biphos/Potassium Phosphate PACKET 1 PACKET PO (20:15)
[2024-07-07] MEDS: Losartan Potassium 50 MG Tablet PO (20:15)
[2024-07-07] MEDS: Metoprolol Tartrate 25 MG Tablet PO (20:15)
[2024-07-07] MEDS: Insulin Lispro 100 UNIT/ML INSULN.PEN SC (20:20)
[2024-07-07] MEDS: 0.9% Normal Saline (1000mL) 1,000 ML 75 ML IV (20:24)
[2024-07-07] MEDS: Ipratropium/Albuterol Sulfate 3 ML AMPUL.NEB INHALATION (21:08)
[2024-07-07 21:10] LABS: Bedside Glucose 179 mg/dL (74-106)
[2024-07-08] VITALS (8 sets, daily range): BP systolic 100–109; BP diastolic 59–77; PULSE 101–114; RESP 18–20; TEMP 36.2–36.8; O2SAT 90–100
[2024-07-08] MEDS: Insulin Lispro 100 UNIT/ML INSULN.PEN SC ×3 (06:30→16:20)
[2024-07-08] MEDS: Na Biphos/Potassium Phosphate PACKET 1 PACKET PO ×2 (06:30→15:15)
[2024-07-08] MEDS: 0.9% Saline Lock 10 ML Syringe IV (06:30)
[2024-07-08 06:31] LABS: Absolute Lymphocyte Count 0.39 X10^3/uL (0.83-4.51); Basophil# 0.02 X10^3/uL; Basophil% 0.4 % (0-1); Eosinophil# 0.01 X10^3/uL; Eosinophils% 0.2 % (0-5); Hematocrit 26.7 % (40-54); Hemoglobin 8.6 g/dL (13.0-16.5); Lymphocyte # 0.39 X10^3/ul (0.83-4.51); Lymphocyte % 8.4 % (19-41); Mean Corp Hgb Conc 32.2 g/dL (32-36); Mean Corpuscular Hgb 30.9 pg (27.0-32.0); Mean Platelet Vol. 9.6 fl (6.2-12.0); Monocyte# 1.23 X10^3/uL; Monocyte% 26.4 % (0-10); NRBC Flagged by Analyzer 0 % (0-5); Neutrophil # 2.95 X10^3/uL (2.7-7.7); Neutrophil % 63.3 % (47-70); POSITIVE DIFFERENTIAL YES; POSITIVE MORPHOLOGY YES; Platelet Count 181 K/mm3 (150-450); RBC Distribution Width CV 21.1 % (11.6-14.6); RBC Distribution Width SD 69.1 fl (35.1-43.9); Red Blood Count 2.78 M/mm3 (4.6-6.2); White Blood Count 4.7 K/mm3 (4.4-11.0)
[2024-07-08 06:35] LABS: Differential Indicated SCAN CRITERIA MET
[2024-07-08 06:40] LABS: Anion Gap 7 (5-15); BUN 11 mg/dL (7-18); BUN/Creat Ratio 12.6 RATIO (10-20); Calcium,Total 9.2 mg/dL (8.5-10.1); Chloride 103 mmol/L (98-107); Creatinine, Serum 0.87 mg/dL (0.70-1.30); EST Glomerular Filtration Rate 91 mL/min (>60); Est Glom Filt Rate - Afr Amer 110 mL/min (>60); Estimated Creatinine Clearance 107.82 ml/min; Glucose 189 mg/dL (74-106); Potassium 4.1 mmol/L (3.5-5.1); Sodium Level 134 mmol/L (136-145)
[2024-07-08 06:54] LABS: Bedside Glucose 169 mg/dL (74-106)
[2024-07-08] MEDS: Ipratropium/Albuterol Sulfate 3 ML AMPUL.NEB INHALATION ×2 (06:56→13:21)
[2024-07-08 07:26] LABS: Anisocytosis 2+; Differential Comment SCANNED; Polychromasia RARE
[2024-07-08] MEDS: Losartan Potassium 50 MG Tablet PO (09:05)
[2024-07-08] MEDS: Metoprolol Tartrate 25 MG Tablet PO (09:05)
[2024-07-08] MEDS: APIXABAN 5 MG TABLET PO (09:05)
[2024-07-08] MEDS: levoFLOXacin 750 MG Tablet PO (09:05)
[2024-07-08] MEDS: Aspirin E.C. 81 MG Tablet PO (09:05)
[2024-07-08] MEDS: buPROPion (XL) 150 MG TABLET.XL PO (09:06)
[2024-07-08] MEDS: guaiFENesin 1,200 MG Tablet 1200 MG PO (09:06)
--- NOTE | 2024-07-08 11:00 | CASEMGMT ---
ARTURO MARTIN Assessment: Face to Face with pt for initial transition planning/care coordination assessment. ARTURO MARTIN introduced self and role at [facility], pt voices understanding and consents to assessment. Pt is A&O x4 and answers all questions appropriately at this time. Pt lying in bed in no distress. Care providers, pharmacy, and demographics verified/updated. Strata: 3 Admitting Dx: SOB, Lung CA, Recent PE. PCP: [facility]: Sarika, Oncologist; Ajay, Radiology Oncology; Valente, Harness Repairer; Main, General Assembler. Preferred [facility]acy: [facility] Insurance: [facility] Prescription Benefit: yes LNOK: , Tanja. Living Arrangements: Pt lives with in a split level home with 7 steps to enter. ADLs: I until recently, started needing assistance due to getting SOB with activity. Transportation: Pt drives self and denies concerns with transportation. also provides transportation. DME: Cane, raised toilet, shower chair, grab bars, glucometer and supplies, has a concentrator at home that he purchased - if he needs a portable O2 pt chose [facility] for oxygen DME. HHC/SNF:Denies Hx of. Pt states no concerns with going home at time of dc. Pt states no further concerns/needs. CM to follow. Advised pt to ask CM if any further question/concerns/needs arise, voices understanding. Pt Goal: Home Plan: Home with family suppport, follow for portable O2 tank needs. Anthony MORRIS CM
[2024-07-08 11:51] LABS: Bedside Glucose 180 mg/dL (74-106)
--- NOTE | 2024-07-08 15:27 | DCINST_ITS ---
Discharge Instructions Diet Discharge Diet: 1800 Calorie Control Diet Activity Discharge Activity: Return to Normal Activity Weight Bearing Status: Full weight bearing Follow Up Care Test Results: Test results from this visit will be discussed in further detail at your follow- up appointment, if applicable. Discharge Plan Admission Admit Date/Time: 07/07/24 16:03 Primary Reason for Your Visit: dyspnea, suspected pneumonia Attending Provider: Elias Sanchez Primary Care Provider: Adalid Cross Consulting Providers: Harris Maynard Discharge Orders/Prescriptions Prescriptions: New levofloxacin 750 mg tablet 750 mg PO DAILY Qty: 5 0RF Rx Instructions: start on 07/09/24 Continued furosemide 40 mg tablet 40 mg PO BID albuterol sulfate 2.5 mg /3 mL (0.083 %) solution for nebulization 2.5 mg INHALATION Q6H PRN (Reason: shortness of breath or wheezing) simvastatin 80 mg tablet 80 mg PO QHS aspirin 81 mg tablet,delayed release (DR/EC) 81 mg PO DAILY metoprolol tartrate 25 mg tablet 25 mg PO DAILY Novolin 70/30 U-100 Insulin 100 unit/mL (70-30) suspension 1 sliding scale dose SC BID Protocol: 6. Sliding Scale Insulin Custom Condition: mg/dl range Dose/Route: NUMBER OF UNITS AT BREAKFAST Instruction: NUMBER OF UNITS AT DINNER Condition: 0-60 Dose/Route: 0 Instruction: 0 Condition: 60-80 Dose/Route: 10 Instruction: 22 Condition: 81-120 Dose/Route: 22 Instruction: 38 Condition: 121-180 Dose/Route: 24 Instruction: 40 Condition: 181-240 Dose/Route: 26 Instruction: 42 Condition: 241-300 Dose/Route: 28 Instruction: 44 Condition: 301-400 Dose/Route: 30 Instruction: 46 Condition: 401+ Dose/Route: 32 Instruction: 48 Protocol Text: Custom Sliding Scale PT TAKES SLIDING SCALE TWICE DAILY AT BREAKFAST AND DINNER. ondansetron 8 mg tablet,disintegrating 8 mg PO Q8H PRN (Reason: nausea and vomiting) Qty: 30 1RF Ozempic 2 mg/dose (8 mg/3 mL) pen injector 2 mg subcut SA losartan 50 mg tablet 50 mg PO DAILY metformin 1,000 mg tablet 1,000 mg PO BID bupropion HCl 150 mg tablet extended release 24 hr 150 mg PO DAILY Eliquis 5 mg Tablet 5 mg PO BID budesonide-formoterol [Symbicort] 80-4.5 mcg/actuation HFA aerosol inhaler 2 inh INHALATION BID Qty: 3 3RF Rx Instructions: 2 Puffs Inh BID j44.9 tiotropium bromide [Spiriva with HandiHaler] 18 mcg capsule, w/inhalation device 1 cap INHALATION DAILY Qty: 90 3RF albuterol sulfate [Ventolin HFA] 90 mcg/actuation HFA aerosol inhaler 2 puff INHALATION Q4H PRN (Reason: shortness of breath or wheezing) Qty: 18 11RF oxycodone 5 mg/5 mL solution 5 mg PO Q4H PRN (Reason: pain) 14 Days Qty: 250 0RF Referrals / Follow Up: Adalid Cross DO [Primary Care Provider] - In 1 Week Disposition Disposition (needs filled in before D/C Order can be placed): Home, Self Care
--- NOTE | 2024-07-08 15:33 | PCM.DC.SUM ---
Providers Date of Admission: 07/07/24 Date of Discharge: 07/08/24 Primary Care Physician: Dr. Adalid Cross DO Reason For Visit: SOB, LUNG CA, RECENT PE Diagnosis Discharge Diagnosis (1) Pneumonia: Status: Acute Code(s): J18.9 - Pneumonia, unspecified organism Qualifiers: Pneumonia type: due to unspecified organism Plan 1. Community-acquired pneumonia #2 chronic obstructive pulmonary disease #3 adenocarcinoma of the right lung #4 morbid obesity #5 dyspnea secondary to morbid obesity and COPD Medications at Discharge Home Medications albuterol sulfate 2.5 mg/3 mL (0.083 %) solution for nebulization 2.5 mg inhalation Q6H PRN shortness of breath or wheezing 05/02/18 aspirin 81 mg tablet,delayed release 81 mg PO DAILY heart health 05/02/18 furosemide 40 mg tablet 40 mg PO BID diuretic 05/02/18 metoprolol tartrate 25 mg tablet 25 mg PO DAILY blood pressure 05/02/18 simvastatin 80 mg tablet 80 mg PO QHS cholesterol 05/02/18 insulin human U-100 NPH-regulr 70-30 mix 100 unit/mL subcutaneous susp (Novolin 70/30 U-100 Insulin) 1 sliding scale dose subcut BID diabetes 08/07/18 semaglutide 2 mg/dose (8 mg/3 mL) subcutaneous pen injector (Ozempic) 2 mg subcut SA diabetes 05/06/24 Symbicort 80 mcg-4.5 mcg/actuation HFA aerosol inhaler (budesonide-formoterol) 2 inh inhalation BID breathing #3 ea 05/13/24 tiotropium bromide 18 mcg capsule with inhalation device (Spiriva with HandiHaler) 1 cap inhalation DAILY breathing #90 inhalations 05/13/24 albuterol sulfate 90 mcg/actuation aerosol inhaler (Ventolin HFA) 2 puff inhalation Q4H PRN shortness of breath or wheezing #18 grams 05/20/24 ondansetron 8 mg disintegrating tablet 8 mg PO Q8H PRN nausea and vomiting #30 tabs 06/23/24 oxycodone 5 mg/5 mL oral solution 5 mg (5 mL) PO Q4H PRN pain 14 days #250 mL 07/02/24 apixaban 5 mg tablet (Eliquis) 5 mg PO BID blood thinner 07/07/24 bupropion HCl 150 mg 24 hr tablet, extended release 150 mg PO DAILY mental health 07/07/24 losartan 50 mg tablet 50 mg PO DAILY blood pressure 07/07/24 metformin 1,000 mg tablet 1,000 mg PO BID diabetes 07/07/24 levofloxacin 750 mg tablet 750 mg PO DAILY #5 tabs 07/08/24 Hospital Course Operations None Procedures None Summary of Care Provided Minutes Spent on Discharge: 31 Hospital Course: This 74-year-old white male was seen in the emergency room at [facility] with complaints of dyspnea. Patient had a diagnosis of adenocarcinoma of the right lung and had undergone radiation treatment and chemotherapy but was finished with these 2 modalities. Chest x-ray was obtained on the patient, it showed significant improvement over the patient's prior exam, a persistent pleural thickening and or small effusion of the posterior lateral lower right hemithorax was noted to be present with a possible malignant mass versus fibrosis anterior to and involving the right hilum. There was an atypical mixed density possible mass in the periphery of the lateral lower right lung., patient was not hypoxic at rest in the emergency room, CBC was remarkable for a white blood cell count at 3.9 and a hemoglobin of 9.4. Patient was felt to have clinical pneumonia and was placed on IV antibiotics and admitted to PCU, the following day patient had an ambulatory pulse ox performed which did not indicate he needed outpatient oxygen. Patient was dyspneic on activity, the patient told me that the oxygen that I had prescribed earlier in the year for him was taken out of his house at his request because he did not use it, patient did say however that he had an oxygen concentrator at home. On 07/08/2024, patient was seen and examined: On examination he appeared in good health and spirits. He is morbidly obese. Vital signs as documented. Skin warm and dry and without overt rashes. Neck without JVD, neck was supple, trachea midline, thyroid was normal. Lungs clear bilaterally, normal air movement was noted. Heart exam notable for regular rhythm, normal sounds and absence of murmurs, rubs or gallops. Abdomen unremarkable and without evidence of organomegaly, masses, or abdominal aortic enlargement. Bowel sounds are present, abdomen is not distended. Extremities nonedematous, no cyanosis was noted, no clubbing was noted. Neuro: Cranial nerves II through XII are grossly intact, no focal motor deficits were noted, sensation to light touch and pinprick intact, motor exam 5/5 throughout. Psych: Patient is alert and oriented x3, he does not appear anxious or depressed, he does not appear agitated. Patient was discharged home in stable condition on 07/08/2024 Weight / BMI Weight Weight: 138.799 kg Body Mass Index (BMI) 43.9 ABG / Lab / Microbiology Data 07/08/24 05:36 07/08/24 05:36 Laboratory: Laboratory Results - last 24 hr 07/07/24 14:57: Differential Comment SEE COMMENTS, Platelet Estimate ADEQUATE, RBC Morphology N CHROM, Polychromasia RARE, Anisocytosis 1+, Macrocytosis 1+, Ovalocytes RARE, Phosphorus 2.4 L, Magnesium 2.0 07/07/24 20:13: POC Glucose 179 H 07/08/24 05:36: WBC 4.7, RBC 2.78 L, Hgb 8.6 L, Hct 26.7 L, MCV 96.0 H, MCH 30.9, MCHC 32.2, RDW Std Deviation 69.1 H, RDW Coeff of Ino 21.1 H, Plt Count 181, MPV 9.6, Immature Gran % (Auto) 1.300 H, Neut % (Auto) 63.3, Lymph % (Auto) 8.4 L, [facility] % (Auto) 26.4 H, Eos % (Auto) 0.2, Baso % (Auto) 0.4, Absolute Neuts (auto) 3.0, Absolute Lymphs (auto) 0.39 L, Nucleated RBC % 0, Differential Comment SCANNED, Polychromasia RARE, Anisocytosis 2+, Sodium 134 L, Potassium 4.1, Chloride 103, Carbon Dioxide 24.0, Anion Gap 7, BUN 11, Creatinine 0.87, Estim Creat Clear Calc 107.82, Est GFR (MDRD) Af Amer 110, Est GFR (MDRD) Non-Af 91, BUN/Creatinine Ratio 12.6, Glucose 189 H, Calcium 9.2 07/08/24 06:27: POC Glucose 169 H 07/08/24 11:32: POC Glucose 180 H Microbiology: Microbiology 07/08/24 00:02 Sputum, Expectorated/Coughed Gram Stain - Final 07/07/24 06:28 Nasal Secretion MRSA (PCR) - Final 07/08/24 02:34 Urine, Random Legionella Antigen - Final 07/08/24 02:34 Urine, Random Streptococcus pneumoniae Antigen (M - Final 07/07/24 18:52 Mucosa - Nasopharyngeal Respiratory Panel (PCR) - Final 07/07/24 18:52 Mucosa - Nasopharyngeal Coronavirus COVID-19 PCR - Final Radiography Diagnostic Testing: Radiology Impression Chest X-Ray 07/07/24 13:53 IMPRESSION: Grossly stable pulmonary and pleural densities in the lower right lung. No other changes or acute abnormalities. Electronically Signed: Amanuel Terrell MD at 16:15 EDT , Chest CT 07/07/24 16:10 IMPRESSION: There has been significant improvement since prior exam. However there is persistent pleural thickening and/or small effusion of the posterolateral lower right hemithorax. There is probable malignant mass versus fibrosis anterior to and involving the right hilum. Atypical mixed density possible mass in the periphery of the lateral lower right lung. If clinically indicated, PET scan should be considered to evaluate for possibility of active malignancy. Electronically Signed: Amanuel Terrell MD at 17:16 EDT , D/C Instructions Discharge Diet: 1800 Calorie Control Diet Weight Bearing Status: Full weight bearing Meaningful Use Info Meaningful Use Meaningful Use Diagnoses (Choose all that apply): None applicable Ischemic Stroke Statin Dosing Therapy Reference: STATIN DOSE THERAPY REFERENCE: * Patients > 75 years receive moderate or high dose statin therapy. * Patients 75 years or YOUNGER should receive HIGH intensity statin dose unless contraindicated. You will be required to document reason for non-treatment if statin daily dose does not meet guidelines. HIGH DOSE STATIN THERAPY DAILY Atorvastatin > than or = to 40 mg Rosuvastatin > than or = to 20 mg Amlodipine + Atorvastatin > than or = to 2.5/40 mg Ezetimibe + Simvastatin 10/80 mg Simvastatin 80mg Discharge Plan Admission Admit Date/Time: 07/07/24 16:03 Primary Reason for Your Visit: dyspnea, suspected pneumonia Attending Provider: Elias Sanchez Primary Care Provider: Adalid Cross Consulting Providers: Harris Maynard Discharge Orders/Prescriptions Prescriptions: New levofloxacin 750 mg tablet 750 mg PO DAILY Qty: 5 0RF Rx Instructions: start on 07/09/24 Continued furosemide 40 mg tablet 40 mg PO BID albuterol sulfate 2.5 mg /3 mL (0.083 %) solution for nebulization 2.5 mg INHALATION Q6H PRN (Reason: shortness of breath or wheezing) simvastatin 80 mg tablet 80 mg PO QHS aspirin 81 mg tablet,delayed release (DR/EC) 81 mg PO DAILY metoprolol tartrate 25 mg tablet 25 mg PO DAILY Novolin 70/30 U-100 Insulin 100 unit/mL (70-30) suspension 1 sliding scale dose SC BID Protocol: 6. Sliding Scale Insulin Custom Condition: mg/dl range Dose/Route: NUMBER OF UNITS AT BREAKFAST Instruction: NUMBER OF UNITS AT DINNER Condition: 0-60 Dose/Route: 0 Instruction: 0 Condition: 60-80 Dose/Route: 10 Instruction: 22 Condition: 81-120 Dose/Route: 22 Instruction: 38 Condition: 121-180 Dose/Route: 24 Instruction: 40 Condition: 181-240 Dose/Route: 26 Instruction: 42 Condition: 241-300 Dose/Route: 28 Instruction: 44 Condition: 301-400 Dose/Route: 30 Instruction: 46 Condition: 401+ Dose/Route: 32 Instruction: 48 Protocol Text: Custom Sliding Scale PT TAKES SLIDING SCALE TWICE DAILY AT BREAKFAST AND DINNER. ondansetron 8 mg tablet,disintegrating 8 mg PO Q8H PRN (Reason: nausea and vomiting) Qty: 30 1RF Ozempic 2 mg/dose (8 mg/3 mL) pen injector 2 mg subcut SA losartan 50 mg tablet 50 mg PO DAILY metformin 1,000 mg tablet 1,000 mg PO BID bupropion HCl 150 mg tablet extended release 24 hr 150 mg PO DAILY Eliquis 5 mg Tablet 5 mg PO BID budesonide-formoterol [Symbicort] 80-4.5 mcg/actuation HFA aerosol inhaler 2 inh INHALATION BID Qty: 3 3RF Rx Instructions: 2 Puffs Inh BID j44.9 tiotropium bromide [Spiriva with HandiHaler] 18 mcg capsule, w/inhalation device 1 cap INHALATION DAILY Qty: 90 3RF albuterol sulfate [Ventolin HFA] 90 mcg/actuation HFA aerosol inhaler 2 puff INHALATION Q4H PRN (Reason: shortness of breath or wheezing) Qty: 18 11RF oxycodone 5 mg/5 mL solution 5 mg PO Q4H PRN (Reason: pain) 14 Days Qty: 250 0RF Referrals / Follow Up: Adalid Cross DO [Primary Care Provider] - 07/14/24 4:30 pm (Appointment is [place]) Disposition Disposition (needs filled in before D/C Order can be placed): Home, Self Care Charges/Coding Visit Charges Inpatient E&M: 72936 Disch Hosp >30min
[2024-07-08 16:13] LABS: Bedside Glucose 204 mg/dL (74-106)
--- NOTE | 2024-07-08 16:17 | CASEMGMT ---
Patient has order for discharge. Patient does not qualify for home oxygen. RN CM in to discuss needs at discharge. Patient denies needs or help at discharge. Patient had no further questions or concerns.
[2024-07-16 11:09] LABS: BNP,B-Type NATRIURETIC PEPTIDE 39.4 pg/mL (0.0-100.0)
== END 2024-07-08 17:30 | disposition home or self-care (01) | DRG 194 ==
LOC: ED 16:05 → PCU 18:06
PROVIDERS: Admitting Provider Internal Medicine; Emergency Provider Emergency Medicine; PCP Preventive Medicine Occupational Medicine; Visit Provider Internal Medicine
DX: J18.9 Pneumonia, unspecified organism (principal); C34.01 Malignant neoplasm of right main bronchus; J44.0 Chronic obstructive pulmonary disease with (acute) lower respiratory infection; Z68.41 Body mass index [BMI] 40.0-44.9, adult; E11.9 Type 2 diabetes mellitus without complications; E66.01 Morbid (severe) obesity due to excess calories; I25.10 Atherosclerotic heart disease of native coronary artery without angina pectoris; E78.00 Pure hypercholesterolemia, unspecified; J92.9 Pleural plaque without asbestos; Z79.4 Long term (current) use of insulin; Z79.84 Long term (current) use of oral hypoglycemic drugs; Z79.51 Long term (current) use of inhaled steroids; Z79.82 Long term (current) use of aspirin; Z79.01 Long term (current) use of anticoagulants; Z79.891 Long term (current) use of opiate analgesic; Z79.899 Other long term (current) drug therapy; Z92.3 Personal history of irradiation; Z92.21 Personal history of antineoplastic chemotherapy; Z87.891 Personal history of nicotine dependence; Z95.1 Presence of aortocoronary bypass graft; Z95.5 Presence of coronary angioplasty implant and graft; Z86.711 Personal history of pulmonary embolism
CPT/HCPCS: 36415; 71046; 71250; 80048; 80053; 82962; 83735; 83880; 84100; 84484; 85025; 87040; 87070; 87205; 87449; 87633; 87635; 87641; 92610; 93005; 94640; 94668; 97802; 99285; J7030; A4216

== ENCOUNTER → 2024-07-17 | Outpatient (CLI) | payer MEDICARE, SELFPAY ==
--- NOTE | 2024-07-17 12:42 | ECHOD_ITS ---
Reason For Study: Abnormal EKG Procedure This was a 2D Doppler, Color Flow transthoracic echocardiogram. The study was technically difficult. Exam performed in department. Left Ventricle Normal LV size. Left ventricular systolic function is normal. The left ventricular ejection fraction is 55 %. Stage 1 diastolic dysfunction. No regional wall motion abnormalities noted. Right Ventricle Normal RV size. Normal systolic function. Atria Normal left atrium. Normal right atrium. Mitral Valve Normal mitral valve. Tricuspid Valve Normal tricuspid valve. Mild (1+) tricuspid valve insufficiency. Pulmonary artery systolic pressure is 36 mmHg. Aortic Valve Trisinus/trileaflet aortic valve. Pulmonic Valve Normal pulmonic valve. Great Vessels Normal aortic root. The pulmonary artery is normal size. Normal inferior vena cava. Pericardium/Pleural No pericardial effusion. MMode/2D Measurements & Calculations LVIDd: 4.3 cm IVSd: 1.1 cm LVOT diam: 2.3 cm LVIDs: 3.3 cm LVPWd: 1.1 cm LVOT area: 4.0 cm2 FS: 22.2 % Ao root diam: 3.8 cm asc Aorta Diam: 3.9 cm LAV(MOD-bp): 39.1 ml LA dimension: 4.2 cm LAV(MOD-bp) Indexed: 14.9 ml/m2 LAV(MOD-sp2): 44.5 ml LAV(MOD-sp4): 32.7 ml LA A4 area: 14.2 cm2 Time Measurements MV dec time: 0.12 sec Doppler Measurements & Calculations MV E max satya: 32.4 cm/sec Lat Peak E' Satya: 4.8 cm/sec Med Peak E' Satya: 5.2 cm/sec MV A max satya: 80.2 cm/sec E/E' lat: 6.8 E/E' med: 6.2 MV E/A: 0.40 MV V2 max: 102.0 cm/sec Ao V2 max: 139.6 cm/sec LV V1 max: 96.9 cm/sec MV max P.2 mmHg Ao max P.8 mmHg LV V1 max P.8 mmHg MV V2 mean: 67.8 cm/sec Ao V2 mean: 97.6 cm/sec LV V1 mean P.9 mmHg MV mean P.1 mmHg Ao mean P.4 mmHg LV V1 mean: 64.3 cm/sec MV V2 VTI: 13.2 cm Ao V2 VTI: 21.4 cm LV V1 VTI: 15.9 cm MVA(VTI): 4.8 cm2 AV (velocity ratio): 0.74 JADE(I,D): 3.0 cm2 JADE(V,D): 2.8 cm2 SV(LVOT): 63.6 ml PA V2 max: 89.9 cm/sec TR max satya: 288.7 cm/sec PA max PG (full): 1.2 mmHg TR max P.3 mmHg ECHO/Echo Complete Interpretation Summary Normal LV size. Left ventricular systolic function is normal. The left ventricular ejection fraction is 55 %. Stage 1 diastolic dysfunction. Ordering Physician: Joyce Braswell Referring Physician: Joyce Braswell Performed By: Yoav George and Student
--- NOTE | 2024-07-17 12:42 | EKG12_ITS ---
Test Reason : ROUTINE Blood Pressure : / mmHG Vent. Rate : 118 BPM Atrial Rate : 118 BPM P-R Int : 154 ms QRS Dur : 086 ms QT Int : 336 ms P-R-T Axes : 071 070 083 degrees QTc Int : 470 ms Sinus tachycardia Low voltage QRS Nonspecific T wave abnormality Abnormal ECG Confirmed by IMELDA ALLEN, SUREKHA ([id number]), newspaper or periodical editor DARBY DONOHUE ([id number]) on 07/18/2024 6:14:26 AM Referred By: Joyce Braswell Confirmed By:SUREKHA SEGURA MD
--- OUTSIDE RECORDS SUMMARY | 2024-07-17 14:25 | XMS RPT_ITS | CCD ---
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 Name Role Phone FORTINO CROSS DO Primary Care Physician [phone] Fortino Cross DO Primary Care Provider [phone] Karen Casillas RN Unavailable Unavailable ASHA CASTAÑEDA, FORTINO Primary Care Unavailable DEVIN CASTAÑEDA, DR SCHAFER Attending Unavailable ASHA CASTAÑEDA, FORTINO Primary Care Unavailable MELISA FOSTER MD Attending Unavailable MATHEW ALLEN, BALA Diamond Attending Unavail able ASHA CASTAÑEDA, FORTINO Primary Care Unavailable ASHA CASTAÑEDA, FROTINO Primary Care Unavailable DOV DWYER MD Attending Unavailable DOV DWYER MD Attending Unavailable FORTINO CROSS DO Primary Care Unavailable JASPER ESPOSITO-BALAJI, RENUKA Do Attending Andrés CROSS DO, FORTINO Primary Care Unavailable FORTINO CROSS DO Attending Unavailable ASHA CASTAÑEDA, FORTINO Primary Care Unavailable DOV DWYER MD Attending Unavailable ASHA , FORTINO Primary Care Unavailable DOV DWYER MD Attending Unavailable ASHA CASTAÑEDA, FORTINO Primary Care Unavailable DEVIN CASTAÑEDA, DR SCHAFER Attending Unavailable ASHA CASTAÑEDA, FORTINO Primary Care Unavailable MARCOS PADILLA Attending Unavailable FORTINO CROSS Primary Care Unavailable BERKLEY MONDRAGON Attending Unavailable MARCOS PADILLA Referring Unavailable FORTINO CROSS Primary Care Unavailable ACE QUINONEZ Attending Unavailable ROXANNE RUELAS Referring Unavailable FORTINO CROSS Primary Care Unavailable ACE QUINONEZ Attending Unavailable ACE QUINONEZ Referring Unavailable FORTINO CROSS Primary Care Unavailable MARCOS PADILLA Admitting Unavailable MARCOS PADILLA Attending Unavailable FORTINO CROSS Primary Care Unavailable Medications Current Medications Medication Drug Class(es) Dates Sig (Normalized) Sig (Original) albuterol 0.83 mg/ml inhalation solution (20 sources) beta2-Adrenergic Agonist Start: 02-28-2024 albuterol (2.5 MG/3ML) 0.083% nebulizer solution 2.5 mg albuterol (2.5 M G/3ML) 0.083% nebulizer solution Take 2.5 mg by nebulization every 6 hours as needed for wheezing. Active take 2 puff(s) by in halation every four hours as needed for wheezing albuterol 108 (90 Base) MCG/ACT inhaler Inhale 2 puffs every 4 hours as needed for wheezing. Active End: 04-01-2024 take 1 tablet by mouth three times daily albuterol (Proventil) 2 MG tablet Take 2 mg by mouth 3 times daily. 04/01/2024 Discontinued (Med list cleanup) aspirin 81 mg oral tablet (20 sources) Platelet Aggregation Inhibitor, Nonsteroidal Anti-inflammatory Drug Start: 04-01-2014 aspirin 81 mg ora l tablet (chewable) Dose : 81 mg = 1 tab(s), Oral, qDay, 0 Refill(s) Start Date: 04/01/14 Status: Ordered aspirin 325 MG t ablet Take 81 mg by mouth daily. Active 60 actuat budesonide 0.08 mg/actuat / formoterol fumarate 0.0045 mg/actuat metered dose inhaler (17 sources) Corticosteroid, beta2-Adrenergic Agonist take 2 puff(s) by inhalation in the morning budesonide-formoterol (Symbicort) 80-4.5 MCG/ACT inhaler Inhale 2 puffs in the morning and 2 puffs in the evening. Rinse mouth with water after use to reduce aftertaste and incidence of candidiasis. Do not swallow.. Active cephalexin 500 mg oral capsule (4 sources) Cephalosporin Antibacterial Start: 2023 End: 2023 cephalexin 500 mg oral capsule Dose : 500 mg = 1 cap(s), Oral, QID, Drink plenty of fluids., X 10 day(s), # 40 cap(s), 0 Refill(s), 01/19/24 1:38:00 PM EDT, Pharmacy: [facility], 176, cm, 01/09/24 12:57:00 EDT, Height, 160.1, kg, 01/09/24 12:57:00 EDT, Dosing Weight Start Date: 01/09/24 Stop Date: 01/19/24 Status: Ordered citalopram 20 mg oral tablet (20 sources) Serotonin Reuptake Inhibitor Start: 2022 End: 2023 citalopram 20 mg oral tablet Dose : 20 mg = 1 tab(s), Oral, qDay, X 90 day(s), # 90 tab(s), 3 Refill(s), 05/10/24 1:14:00 PM EDT, Pharmacy: [facility], 178.5, cm, 05/16/23 13:04:00 EDT, Height, kg, 05/16/23 13:04:00 EDT, Dosing Weight Start Date: 05/16/23 Stop Date: 05/10/24 Status: Ordered Start: 05-12-2022 citalopram 20 mg oral tablet Dose : 20 mg = 1 tab(s), Oral, qDay, # 90 tab(s), 3 Refill(s), Pharmacy: [facility], 180, cm, 03/02/22 9:26:00 EDT, Height, kg, 03/02/22 9:26:00 EDT, Dosing Weight Start Date: 05/12/22 Status: Ordered Start: 05-19-2021 citalopram 20 mg oral tablet Dose : 20 mg = 1 tab(s), Oral, qDay, # 90 tab(s), 3 Refill(s), Pharmacy: [facility], 180, cm, 03/02/21 9:36:00 EDT, Height, kg, 03/02/21 9:36:00 EDT, Dosing Weight Start Date: 05/19/21 Status: Ordered Start: 05-02-2018 End: 05-10-2024 citalopram (CeleXA) 20 MG ta blet Take 40 mg by mouth. 05/02/2018 Active clopidogrel 75 mg oral tablet (2 sources) P2Y12 Platelet Inhibitor Start: 02-22-2021 clopidogrel 75 mg oral tablet Dose : 75 mg = 1 tab(s), Oral, qDay, # 90 tab(s), 3 Refill(s), Pharmacy: [facility], 180, cm, 01/31/21 8:59:00 EDT, Height, kg, 01/31/21 8:59:00 EDT, Dosing Weight Start Date: 02/22/21 Status: Ordered furosemide 40 mg oral tablet (20 sources) Loop Diuretic Start: 01-27-2020 Lasix 40 mg oral tablet Dose : 40 mg = 1 tab(s), Oral, BID, # 180 tab(s), 3 Refill(s), Pharmacy: [facility], 177.8, cm, 01/27/20 8:37:00 EDT, Height, kg, 01/27/20 8:42:00 EDT, Dosing Weight Start Date: 01/27/20 Status: Ordered insulin isophane, human 70 unt/ml / insulin, regular, human 30 unt/ml injectable suspension (20 sources) Insulin Start: 12-28-2023 inject 100 [IU] by subcutaneous injection twice daily HumuLIN 70/30 (70-30) 100 UNIT/ML injection INJECT UP TO 100 UNITS SUBCUTANEOUSLY TWICE DAILY DIRECTED VIA SLIDING SCALE 12/28/2023 Active Start: 01-31-2021 inject 1 dose by sub cutaneous injection twice daily HumuLIN 70/30 10 mL vial Dose : 20 unit(s) =, Subcutaneous, BID, # 10 mL, 0 Refill(s) Start Date: 01/31/21 Status: Ordered losartan potassium 50 mg oral tablet (20 sources) Angiotensin 2 Receptor Dwait Start: 11-21-2023 losartan (Cozaar) 50 MG tablet 50 mg. 11/21/2023 Active Start: 10-31-2022 take 0.5 tablet by m outh once daily losartan 100 mg oral tablet 0.5, Oral, qDay, # 30 tab(s), 3 Refill(s), Pharmacy: [facility], 178.5, cm, 10/31/22 14:15:00 EST, Height Start Date: 10/31/22 Status: Ordered Start: 10-31-2022 losartan 100 m g oral tablet Dose : 100 mg = 1 tab(s), Oral, qDay, # 90 tab(s), 3 Refill(s), Pharmacy: [facility], 178.5, cm, 10/31/22 14:15:00 EST, Height Start Date: 10/31/22 Status: Ordered Start: 05-12-2022 losartan 50 mg oral tablet Dose : 50 mg = 1 tab(s), Oral, qDay, # 90 tab(s), 3 Refill(s), Pharmacy: [facility], 180, cm, 03/02/22 9:26:00 EDT, Height, kg, 03/02/22 9:26:00 EDT, Dosing Weight Start Date: 05/12/22 Status: Ordered Start: 05-11-2021 losartan 50 mg oral tablet Dose : 50 mg = 1 tab(s), Oral, qDay, # 90 tab(s), 3 Refill(s), Pharmacy: [facility], 180, cm, 03/02/21 9:36:00 EDT, Height, kg, 03/02/21 9:36:00 EDT, Dosing Weight Start Date: 05/11/21 Status: Ordered metFORMIN hydrochloride 1000 mg oral tablet (20 sources) Biguanide Start: 01-31-2021 metFORMIN 1000 mg oral tablet (IR) Dose : 1,000 mg = 1 tab(s), Oral, BID, Dispense the immediate release form of this medication, # 180 tab(s), 3 Refill(s), Pharmacy: [facility], 178.5, cm, 02/06/23 9:28:00 EDT, Height, kg, 02/06/23 9:28:00 EDT, Dosing Weight Start Date: 02/07/23 Status: Ordered metoprolol tartrate 25 mg oral tablet (20 sources) beta-Adrenergic Dawit Start: 02-18-2020 metoprolol tartrate 25 mg oral tablet Dose : 25 mg = 1 tab(s), Oral, qDay, # 90 tab(s), 3 Refill(s), Pharmacy: [facility], 178.5, cm, 05/16/23 13:04:00 EDT, Height, kg, 05/16/23 13:04:00 EDT, Dosing Weight Start Date: 05/16/23 Status: Ordered predniSONE 10 mg oral tablet (9 sources) Start: 01-09-2024 End: 01-17-2024 prednisone 10mg tab (TAPER) Taper 40-30-20-10 x 2 days each dose, Oral, qDayM, Take with food/meal. No NSAIDs while on this med., # 20 tab(s), 0 Refill(s), Pharmacy: [facility], 176, cm, 01/09/24 12:57:00 EDT, Height, kg, 01/09/24 12:57:00 EDT, Dosing Weight Start Date: 01/09/24 Stop Date: 01/17/24 Status: Ordered Start: 01-09-2024 take 2 tablets by mo uth once daily Deltasone 20mg tab (TAPER) TAKE 2 TABLETS BY MOUTH ONCE DAILY FOR 5 DAYS Start Date: 01/09/24 Status: Ordered Start: 12-31-2023 End: 01-05-2024 predniSONE 20 mg oral tablet Dose : 40 mg = 2 tab(s), Oral, qDay, X 5 day(s), # 10 tab(s), 0 Refill(s), 01/05/24 1:05:00 PM EDT Start Date: 12/31/23 Stop Date: 01/05/24 Status: Ordered semaglutide (Ozempic) 4 MG/3 ML solution pen-injector (17 sources) Start: 11-22-2023 semaglutide (O zempic) 4 MG/3ML solution pen-injector Semaglutide (Ozempic) 1 mg/dose (4 mg/3 mL) pen injector Active MG SC EVERY WEEK November 22, 2023 1:00am 11/22/2023 Active Start: 11-22-2023 semaglutide (O zempic) 4 MG/3ML solution pen-injector Semaglutide (Ozempic) 1 mg/dose (4 mg/3 mL) pen injector Active MG SC EVERY WEEK November 22, 2023 1:00am 0 11/22/2023 Active simvastatin 80 mg oral tablet (20 sources) HMG-CoA Reductase Inhibitor Start: 01-31-2021 simvastatin 80 mg oral tablet Dose : 80 mg = 1 tab(s), Oral, qHS, # 90 tab(s), 3 Refill(s), Pharmacy: [facility], 178.5, cm, 02/06/23 9:28:00 EDT, Height, kg, 02/06/23 9:28:00 EDT, Dosing Weight Start Date: 02/06/23 Status: Ordered Symbicort 80 mcg-4.5 mcg/inh Inhaler (15 sources) Start: 12-17-2016 take 1 dose by inhalation twice daily Symbicort 80 mcg-4.5 mcg/inh Inhaler Dose = 2 puff(s), Inhalation, BID, 0 Refill(s) Start Date: 12/17/16 Status: Ordered terbinafine 250 mg oral tablet (17 sources) Allylamine Antifungal take 1 tablet by mouth once daily terbinafine (LamISIL) 250 MG tablet Take 250 mg by mouth daily. Active tiotropium 0.018 mg inhalation powder (20 sources) Anticholinergic Start: 03-03-2024 End: 03-03-2024 take 1 capsule by inhalation in the morning tiotropium (Spiriva) [address] 1 capsule (18 mcg) into inhaler and inhale in the morning. 90 capsule 3 03/03/2024 Active Start: 11-15-2020 take 1 ug by inhalat ion once daily Spiriva HandiHaler 18 mcg inhalation capsule mcg = cap(s), Inhalation, qDay, 0 Refill(s) Start Date: 11/15/20 Status: Ordered Start: 11-15-2020 take 1 ug by inhalat ion once daily Spiriva HandiHaler 18 mcg inhalation capsule mcg = cap(s), Inhalation, qDay, 0 Refill(s) Start Date: 11/15/20 Status: Ordered Start: 11-15-2020 take 1 ug by inhalat ion once daily Spiriva HandiHaler 18 mcg inhalation capsule mcg = cap(s), Inhalation, qDay, 0 Refill(s) Start Date: 11/15/20 Status: Ordered Completed/Discontinued Medications Medication Drug Class(es) Dates Sig (Normalized) Sig (Original) 0.25 MG, 0.5 MG Dose 3 ML semaglutide 0.68 MG/ML Pen Injector [Ozempic] (9 sources) Start: 02-06-2023 inject 0.5 mg by subcutaneous injection every week Ozempic 2 mg/3 mL (0.25 mg or 0.5 mg dose) subcutaneous solution Dose : 0.25 mg =, Subcutaneous, qWeek, rotate injection sites, # 1 EA, 0 Refill(s) Start Date: 02/06/23 Status: Ordered calcium chloride 0.0014 meq/ml / potassium chloride 0.004 meq/ml / sodium chloride 0.103 meq/ml / sodium lactate 0.028 meq/ml injectable solution (2 sources) Start: 03-03-2024 End: 03-03-2024 lactated ringers infusion 1 ml diphenhydrAMINE hydrochloride 50 mg/ml cartridge (6 sources) Histamine-1 Receptor Antagonist Start: 03-03-2024 End: 03-03-2024 diphenhydrAMINE (BENADryl) injection 12.5 mg Start: 01-09-2024 End: 01-14-2024 diphenhydrAMINE 50 mg oral c apsule Dose : 50 mg = 1 cap(s), Oral, q6hr, PRN for allergy symptoms, Do not drive, operate heavy machinery, or drink alcohol while on med., # 20 cap(s), 0 Refill(s), Pharmacy: [facility], 176, cm, 01/09/24 12:57:00 EDT, Height, kg, 01/09/24 12:57:00 EDT, Dosing Weight Start Date: 01/09/24 Stop Date: 01/14/24 Status: Ordered famotidine 20 mg oral tablet (5 sources) Histamine-2 Receptor Antagonist Start: 12-31-2023 End: 01-05-2024 famotidine 20 mg oral tablet Dose : 20 mg = 1 tab(s), Oral, BID, # 10 tab(s), 0 Refill(s) Start Date: 12/31/23 Stop Date: 01/05/24 Status: Ordered 1 ml HYDROmorphone hydrochloride 1 mg/ml cartridge (4 sources) Opioid Agonist Start: 03-03-2024 End: 03-03-2024 HYDROmorphone (Dilaudid) injection 0.5 mg Start: 03-03-2024 End: 03-03-2024 HYDROmorphone (Dilaudid) inj ection 0.25 mg labetalol (Normodyne,Trandate) injection 5 mg (2 sources) Start: 03-03-2024 End: 03-03-2024 labetalol (Normodyne,Trandate) injection 5 mg 1 ml LORazepam 2 mg/ml injection (2 sources) Benzodiazepine Start: 03-03-2024 End: 03-03-2024 LORazepam (Ativan) injection 0.5 mg 2 ml ondansetron 2 mg/ml injection (2 sources) Serotonin-3 Receptor Antagonist Start: 03-03-2024 End: 03-03-2024 ondansetron (Zofran) injection 4 mg oxyCODONE (2 sources) Opioid Agonist Start: 03-03-2024 End: 03-03-2024 oxyCODONE (Roxicodone) immediate release tablet 5 mg 5 ml sodium chloride 9 mg/ml injection (10 sources) Start: 03-03-2024 End: 03-03-2024 sodium chloride 0.9% (NS) flush 10 mL Start: 03-03-2024 End: 03-03-2024 sodium chloride 0.9% (NS) fl ush 10 mL Start: 03-03-2024 End: 03-03-2024 sodium chloride 0.9 % bolus 500 mL Start: 03-03-2024 End: 03-03-2024 sodium chloride 0.9% (NS) fl ush 10 mL Start: 03-03-2024 End: 03-03-2024 sodium chloride 0.9 % infusi on Problems Active Problems Problem Classification Problem Date Documented Date Episodic/Chronic Cancer of bronchus; lung (4 sources) Malignant neoplasm of middle lobe, bronchus or lung; Translations: [Malignant neoplasm of middle lobe, bronchus or lung] Onset: 03-10-2024 03-11-2024 Chronic Chronic obstructive pulmonary disease and bronchiectasis (20 sources) Chronic obstructive lung disease; Translations: [Chronic obstructive pulmonary disease, unspecified] Onset: 03-10-2024 07-28-2019 Chronic Coronary atherosclerosis and other heart disease (15 sources) Coronary arteriosclerosis in [place] artery 11-24-2019 Chronic Diabetes mellitus with complications (1 source) Polyneuropathy due to type 2 diabetes mellitus; Translations: [Type 2 diabetes mellitus with diabetic polyneuropathy] Chronic Diabetes mellitus without complication (15 sources) Type 2 diabetes mellitus 04-01-2014 Chronic Comment on above: non-compliant Disorders of lipid metabolism (16 sources) Hyperlipidemia; Translations: [Mixed hyperlipidemia] 07-28-2019 Chronic Essential hypertension (16 sources) Essential hypertension; Translations: [Essential (primary) hypertension] 11-24-2019 Chronic Nonspecific chest pain (4 sources) Chest pain 01-09-2024 Episodic Other inflammatory condition of skin (15 sources) Psoriasis 08-02-2021 Chronic Other lower respiratory disease (1 source) Abnormal findings on diagnostic imaging of lung; Translations: [Other nonspecific abnormal finding of lung field] Onset: 01-09-2024 Episodic Other nutritional; endocrine; and metabolic disorders (1 source) Morbid obesity; Translations: [Morbid (severe) obesity due to excess calories] 03-11-2024 Chronic Other nutritional; endocrine; and metabolic disorders (2 sources) Morbid (severe) obesity due to excess calories; Translations: [Morbid (severe) obesity due to excess calories (HCC)] Onset: 03-10-2024 Chronic Haley-; endo-; and myocarditis; cardiomyopathy (except that caused by tuberculosis or sexually transmitted disease) (15 sources) Dilated cardiomyopathy 01-31-2021 Chronic Residual codes; unclassified (15 sources) Obstructive sleep apnea syndrome 11-24-2019 Chronic Residual codes; unclassified (15 sources) Needs influenza immunization 08-02-2021 Episodic Residual codes; unclassified (4 sources) Peripheral edema 01-09-2024 Episodic Thyroid disorders (1 source) Simple goiter; Translations: [Nontoxic goiter, unspecified] Chronic Unclassified (15 sources) Patient encounter status 08-03-2020 Past or Other Problems Problem Classification Problem Date Documented Da te Episodic/Chronic Lymphadenitis (20 sources) Lymphadenopathy; Translations: [Generalized enlarged lymph nodes] Onset: 02-25-2024 02-25-2024 Episodic Other lower respiratory disease (20 sources) Lung mass; Translations: [Other nonspecific abnormal finding of lung field] Onset: 02-25-2024 02-25-2024 Episodic Other lower respiratory disease (2 sources) Other nonspecific abnormal finding of lung field; Translations: [Other nonspecific abnormal finding of lung field] Onset: 02-25-2024 Episodic Results Test Name Value Interpretation Reference Range Facility [facility] [place] PATH SENDOUT (SENDOUT)o n 05-28-2024 [facility] MISCELLANEOUS LAB TEST RESULT Normal [facility] Comment on above: Result Comment: CONY Parikh COMMENTS: Results are attached to the pathology report, case # [id number]. See scan in Flagsetter. Performed By: #### L [id number] ####Sorority Mother: NATIVIDAD BARTLETT ([phone])[facility])[address] [place] [address] MIS PATH SENDOUT (SENDOUT)o n 05-19-2024 [facility] MISCELLANEOUS LAB TEST RESULT Normal [facility] Comment on above: Result Comment: ORDE R COMMENTS: Results are attached to the pathology report, case # [id number]. See scan in Flagsetter. Performed By: #### L [id number] ####Sorority Mother: NATIVIDAD BARTLETT ([phone])[facility])[address] [place] [address] MIS PATH SENDOUT (SENDOUT)o n 04-15-2024 [facility] MISCELLANEOUS LAB TEST RESULT Normal [facility] Comment on above: Result Comment: ORDE R COMMENTS: Results are attached to the pathology report, case # [id number]. See scan in Flagsetter. Performed By: #### L [id number] ####Sorority Mother: NATIVIDAD BARTLETT ([phone])[facility] ([facility])[address] [place] [address] .GFRon 04-09-2024 GFR 62 ml/min/1.73sqm Normal [facility] ([place]) Comment on above: Result Comment: GFR Population mean for , Non- Americans Ages 20-29 = 116 mL/min/1.73 sq.m. Ages 30-39 = 107 mL/min/1.73 sq.m. Ages 40-49 = 99 mL/min/1.73 sq.m. Ages 50-59 = 93 mL/min/1.73 sq.m. Ages 60-69 = 85 mL/min/1.73 sq.m. Ages 70+ = 75 mL/min/1.73 sq.m. Chronic Kidney Disease: Less than 60 mL/min/1.73 square meters End Stage Renal Disease: Less than 15 mL/min/1.73 square meters Performed By: #### G FR, BMP, AST, A1C, ALT #### [facility] [address] [address] GFR Non- 51 ml/min/1.73sqm Normal [facility] ([place]) Comment on above: Result Comment: GFR Population mean for , Non- Americans Ages 20-29 = 116 mL/min/1.73 sq.m. Ages 30-39 = 107 mL/min/1.73 sq.m. Ages 40-49 = 99 mL/min/1.73 sq.m. Ages 50-59 = 93 mL/min/1.73 sq.m. Ages 60-69 = 85 mL/min/1.73 sq.m. Ages 70+ = 75 mL/min/1.73 sq.m. Chronic Kidney Disease: Less than 60 mL/min/1.73 square meters End Stage Renal Disease: Less than 15 mL/min/1.73 square meters Performed By: #### G FR, BMP, AST, A1C, ALT #### [address] [address] A1Con 04-09-2024 HbA1c (Bld) [Mass fraction] 6.4 % Normal 4.3-6.4 [facility] ([place]) Comment on above: Performed By: #### A RICKI, CBC, DIMER, ADIFF, PBNP #### [address] [address] ALT/SGPTon 04-09-2024 ALT [Catalytic activity/Vol] 24 U/L Normal 16-63 [facility] ([place]) Comment on above: Performed By: #### G FR, BMP, AST, A1C, ALT #### [address] [address] Denny 04-09-2024 AST [Catalytic activity/Vol] 15 U/L Normal 10-40 [facility] ([place]) Comment on above: Performed By: #### G FR, BMP, AST, A1C, ALT #### [address] [address] BMPon 04-09-2024 BUN/Creatinine Ratio 17 ratio Normal 7-27 [facility] ([place]) Comment on above: Performed By: #### G FR, BMP, AST, A1C, ALT #### [address] [address] Calcium [Mass/Vol] 9.1 mg/dL Normal 8.4-10.2 [facility] ([place]) Comment on above: Performed By: #### G FR, BMP, AST, A1C, ALT #### [address] [address] Chloride [Moles/Vol] 103 mmol/L Normal 98-107 [facility] ([place]) Comment on above: Performed By: #### G FR, BMP, AST, A1C, ALT #### [address] [address] CO2 [Moles/Vol] 27 mmol/L Normal 23-31 [facility] ([place]) Comment on above: Performed By: #### G FR, BMP, AST, A1C, ALT #### [address] [address] Creatinine [Mass/Vol] 1.37 mg/dL High 0.70-1.30 [facility] ([place]) Comment on above: Performed By: #### G FR, BMP, AST, A1C, ALT #### [address] [address] Electrolyte Balance 10.0 mEq/L Normal 4.0-15.0 [facility] ([place]) Comment on above: Performed By: #### G FR, BMP, AST, A1C, ALT #### [address] [address] Glucose [Mass/Vol] 131 mg/dL High 83-110 [facility] ([place]) Comment on above: Performed By: #### G FR, BMP, AST, A1C, ALT #### [address] [address] Potassium [Moles/Vol] 4.8 mmol/L Normal 3.5-5.1 [facility] ([place]) Comment on above: Performed By: #### G FR, BMP, AST, A1C, ALT #### [address] [address] Sodium [Moles/Vol] 140 mmol/L Normal 136-145 [facility] ([place]) Comment on above: Performed By: #### G FR, BMP, AST, A1C, ALT #### [facility] [place] [address] [place], [place] [address] Urea nitrogen [Mass/Vol] 23 mg/dL High 7-18 [facility] ([place]) Comment on above: Performed By: #### G FR, BMP, AST, A1C, ALT #### [facility] [place] [address] [place], [place] [address] Office Visiton 04-08-2024 Follow-up visit [id number] Aleks Costello 1950 M Date Provider Department Center 04/08/2024 [id number]-SCOIEQOBERKLEY MONDRAGON [facility] None No family history on file Level of Service:19514 SD OFFICE/OUTPATIENT NEW HIGH MDM 60 MINUTES Reason for Visit and Comments: New Patient [542] Normal [facility] Progress Noteon 04-08-2024 Progress Note [facility]ARD[facility]OV[facility]ORACIC SURGERY [address] [facility] [facility] [address] [facility] [address] Dept: [phone] Dept Loc: [phone] Visit type: New Reason for Visit: Malignant neoplasm right lung Assessment and plan This 73-year-old gentleman with a 83-bxpg-ncdm history of smoking and fairly severe COPD was found to have a 3.5 cm central mass located primarily in the right middle lobe but at the confluence of the fissures. PET scan demonstrated activity in this region but no evidence of distant disease. A needle biopsy suggested adenocarcinoma with negative lymph nodes. Because of the anatomic considerations for potential resection and this patient's comorbidities, including severe COPD precluding major pulmonary resection, we discussed the possibility of radiation therapy as opposed to surgical resection. The risks benefits and alternatives of both options were discussed. Patient wishes to pursue learning more about radiation therapy. We will make arrangements with radiation oncology to assess that possibility. History of Present Illness Aleks Costello is a 73 y.o. male referred by Dr. 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 Per note, patient with history of COPD, tobacco abuse (60 pack-year, quit 2008), CAD s/p CABG and PCI, MALI on CPAP, morbid obesity. Pt was originally referred to [facility] by [facility] pulmonary providers for consideration of advanced bronchoscopy after CT Lung Scan 01/09/24 at [facility] noted a spiculated 3.5 x 3.2 cm soft tissue density in the RML w/ adjacent right hilar lymphadenopathy. Sent for PET 01/29/24 with uptake in right infrahilar area with SUV max 6.8, no evidence of distant disease. Sent for EBUS/ENB 03/03/24. TBNA suggestive of adenocarcinoma, Lymph nodes 11L, 4R negative for malignancy. Lymph nodes 7, 11R showed atypical cells of uncertain significance. Respiratory culture, fungal stain/culture, AFB culture all negative. PFT 02/28/24 showed moderate obstruction and significant response to bronchodilator. Pt was presented at [facility] 03/11/[address] Surgery eval was recommended. Patient is a former smoker. Hgb A1C drawn 01/09/24 was 6.7%. Patient is here now for an evaluation. Past Medical History Past Medical History: Diagnosis Date COPD (chronic obstructive pulmonary disease) (HCC) Diabetes mellitus (HCC) Past Surgical History Past Surgical History: Procedure Laterality Date BRONCHOSCOPY 03/03/2024 EBUS/ENB CORONARY ARTERY BYPASS GRAFT Family History No family history on file. Social History Social History Tobacco Use Smoking status: Former Current packs/day: 0.00 Average packs/day: 1.5 packs/day for 40.0 years (60.0 ttl pk-yrs) Types: Cigarettes Start date: 1968 Quit date: 2008 Years since quittin.5 Smokeless tobacco: Former Substance Use Topics Alcohol use: Yes Comment: occ Allergies No Known Allergies Medications Current Outpatient Medications: HumuLIN 70/30 (70-30) 100 UNIT/ML injection, INJECT UP TO 100 UNITS SUBCUTANEOUSLY TWICE DAILY DIRECTED VIA SLIDING SCALE, Disp: , Rfl: albuterol (2.5 MG/3ML) 0.083% nebulizer solution, Take 2.5 mg by nebulization every 6 hours as needed for wheezing., Disp: , Rfl: albuterol 108 (90 Base) MCG/ACT inhaler, Inhale 2 puffs every 4 hours as needed for wheezing., Disp: , Rfl: aspirin 325 MG tablet, Take 81 mg by mouth daily., Disp: , Rfl: budesonide-formoterol (Symbicort) 80-4.5 MCG/ACT inhaler, Inhale 2 puffs in the morning and 2 puffs in the evening. Rinse mouth with water after use to reduce aftertaste and incidence of candidiasis. Do not swallow.., Disp: , Rfl: citalopram (CeleXA) 20 MG tablet, Take 40 mg by mouth., Disp: , Rfl: furosemide (Lasix) 40 MG tablet, Take 40 mg by mouth in the morning and 40 mg in the evening., Disp: , Rfl: losartan (Cozaar) 50 MG tablet, 50 mg., Disp: , Rfl: metFORMIN (Glucophage) 1000 MG tablet, Take 1,000 mg by mouth., Disp: , Rfl: metoprolol tartrate (Lopressor) 25 MG tablet, Take 25 mg by mouth daily., Disp: , Rfl: semaglutide (Ozempic) 4 MG/3ML solution pen-injector, Semaglutide (Ozempic) 1 mg/dose (4 mg/3 mL) pen injector Active MG SC EVERY WEEK November 22, 2023 1:00am, Disp: , Rfl: simvastatin (Zocor) 80 MG tablet, Take 80 mg by mouth Nightly., Disp: , Rfl: terbinafine (LamISIL) 250 MG tablet, Take 250 mg by mouth daily., Disp: , Rfl: tiotropium (Spiriva) 18 MCG inhalation capsule, Place 1 capsule (18 mcg) into inhaler and inhale in the morning., Disp: 90 capsule, Rfl: 3 Review of Systems Review of Systems Constitutional: Negative. HENT: Negative. Eyes: Negative. Respiratory: Positive for shortness of breath. Cardiovascular: Negative. Gastrointestinal: Negative. Endocrine: Negative. Genitourinary: Negative. Musculoskeletal: Negative. Skin: Negative. Allergic/Immunologic: Negative. Neurological: Negative. Hematolo (more content not included)... [facility] Progress Noteon 03-11-2024 Progress Note THORACIC ONCOLOGY AN D LUNG NODULE TUMOR BOARD RECOMMENDATIONS Consensus Recommendation Summary Privileged Information TUMOR BOARD CLINICAL SUMMARY Basic Demographic Information Aleks Costello Date of presentation: 03/11/24 1950 Presenting physician: Dr. Padilla 73 y.o. [] Previous presentation date: Not Applicable Presentation Type [x] Prospective [] Retrospective [] Nodule Brief Clinical Summary & Tumor Board Recommendations 4 Diagnosis RML [place] Presenter: Dr. 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 Quinonez / Dr. Mary Victor PET: 01/29/24 @ [place] (in PACS) Smoking History: ? Former 60 pk yr Quit 2008 PCP: Dr. Fortino Cross PFT: 02/28/24 ?Prospective []Retrospective Other: PATH: EBUS/ENB 03/03/24 Clinical Stage: T N M Path Stage: T N M Other: Brief Summary: Referred to [facility] by [place] pulmonary providers for consideration of advanced bronchoscopy. CTA chest at [place] which noted a spiculated 3.5 x 3.2 cm soft tissue density in the RML w/ adjacent right hilar lymphadenopathy. Sent for PET with uptake in right infrahilar area with SUV max 6.8. Sent for EBUS/ENB and PFT. Now presents to review imaging, path, PFT, and plan of care.* Patient will likely follow with providers in [place] after work up is complete. Recommendations: 1. CTS Eval Available Protocol Recommendation [] Yes Protocol: Report Completed by Karen Casillas RN 03/11/2024 Thoracic Tumor Board Moderator-Donya Dodd DO Recommendations from Tumor Conference are based on national evidence based guidelines. The plan used by the managing physician(s) may vary based on the status of the individual patient and the reports results made available at time of presentation. We recognize that this data set may change and that the final treatment plan may differ from this recommendation. [facility] Progress Note Patient was identifi ed and seen today via Telehealth by agreement and consent. I used the following Telehealth technology: Audio capability only. Total length of call 23 minutes. The patient was offered and advised video for a more comprehensive evaluation, but the patient declined or was unable to use video. Patient location: Patient Location: Home. This patient encounter is appropriate and reasonable under the circumstances: patient preference . The patient has been advised of the potential risks and limitations of this mode of treatment (including but not limited to the absence of in-person examination) and has agreed to be treated in a remote fashion in spite of them. Any and all of the patient's/patient's family's questions on this issue have been answered and I have made no promises or guarantees to the patient. The patient has also been advised to contact this office for worsening conditions or problems, and seek emergency medical treatment and/or call 911 if the patient deems either necessary. The patient stated that they are currently in the state [facility]. If the patient is a minor, permission has been obtained by the parent or guardian for the patient to receive medical care at this visit. Chief Complaint: Chief Complaint Patient presents with Lung Cancer History of Present Illness: HPI Follow up after EBUS and navigational bronchoscopy to evaluate an enlarging RML/perihilar lung mass. Sampling of the lung mass demonstrates pulmonary adenocarcinoma. Kiet sampling of 4R is negative for malignancy, however the right hilar node and station 7 showed a few atypical cells (no overt malignancy though). He has COPD as well, although PFTs are acceptable for surgical resection if otherwise indicated. His case was reviewed at our multidisciplinary thoracic conference today. I reviewed his pathology, cytology, imaging, and PFTs results and discussed with him today. Past Medical History: Past Medical History: Diagnosis Date Diabetes mellitus (HCC) Social History: Social History Socioeconomic History Marital status: Tobacco Use Smoking status: Former Current packs/day: 0.00 Average packs/day: 1.5 packs/day for 40.0 years (60.0 ttl pk-yrs) Types: Cigarettes Start date: 1968 Quit date: 2008 Years since quittin.4 Smokeless tobacco: Former Substance and Sexual Activity Alcohol use: Yes Comment: occ Family History: No family history on file. ROS: Review of Systems Respiratory: Positive for cough and shortness of breath. All other systems reviewed and are negative. Medications: Current Outpatient Medications Medication Sig Dispense Refill albuterol (Proventil) 2 MG tablet Take 2 mg by mouth 3 times daily. aspirin 325 MG tablet Take 81 mg by mouth daily. budesonide-formoterol (Symbicort) 80-4.5 MCG/ACT inhaler Inhale 2 puffs in the morning and 2 puffs in the evening. Rinse mouth with water after use to reduce aftertaste and incidence of candidiasis. Do not swallow.. citalopram (CeleXA) 20 MG tablet Take 40 mg by mouth. furosemide (Lasix) 40 MG tablet Take 40 mg by mouth. losartan (Cozaar) 50 MG tablet 50 mg. metFORMIN (Glucophage) 1000 MG tablet Take 1,000 mg by mouth 2 times daily. metoprolol tartrate (Lopressor) 25 MG tablet Take 25 mg by mouth daily. semaglutide (Ozempic) 4 MG/3ML solution pen-injector Semaglutide (Ozempic) 1 mg/dose (4 mg/3 mL) pen injector Active MG SC EVERY WEEK November 22, 2023 1:00am simvastatin (Zocor) 80 MG tablet Take 80 mg by mouth Nightly. terbinafine (LamISIL) 250 MG tablet Take 250 mg by mouth daily. tiotropium (Spiriva) [address] 1 capsule (18 mcg) into inhaler and inhale in the morning. 90 capsule 3 No current facility-administered medications for this visit. Allergies: No Known Allergies Physical Exam: BP Temp Pulse Resp SpO2 Physical Exam telephonic visit. Assessment and Plan: 1. Malignant neoplasm of middle lobe of right lung (HCC) Tumor may be isolated to the right middle lobe and amenable to lobectomy. May require sleeve as well. See below regarding potential mediastinal lymph node involvement. Referral placed to thoracic surgery to discuss mediastinoscopy to evaluate station 7, followed by potential lobectomy. He is a borderline surgical candidate due to COPD and morbid obesity. - [facility] Cardiothoracic Surgery; Future 2. Mediastinal adenopathy Surgical referral for mediastinoscopy as above. This is likely warranted regardless of candidacy for lobectomy for definitive staging as will be needed if chemo/XRT pathway is chosen. 3. Chronic obstructive pulmonary disease, unspecified COPD type (HCC) Continue current therapy. PFTs reviewed. 4. Morbid obesity (HCC) Complicates potential surgery and likely contributes to reduced lung function as well. Follow-up: prn [facility] XR CHEST 1 VIEWon 03-05-2024 XR CHEST 1 VIEW [facility] 1950 [id number] Exam Date/Time: 03/03/2024 15:18 Procedure: XR CHEST 1 VIEW Ordering Provider: PADILLA BRIAN Reason For Exam: s/p RML biopsy and BAL PORTABLE CHEST CLINICAL INDICATION: Follow-up for right middle lobe biopsy TECHNIQUE: Portable AP COMPARISON: Head CT from 01/29/2024 FINDINGS: The heart and mediastinum are normal. Ill-defined opacity noted in the right mid hemithorax within a broadbase to the undersurface of the minor fissure. No pneumothorax. Costophrenic angles are sharp. Sternal wires are noted. IMPRESSION: Ill-defined opacity in the right middle lobe, probably biopsy-related hemorrhage. No pneumothorax Report Dictated on Electronically Signed By: Jason Viveros MD Electronically Signed Date/Time: 03/05/2024 2:[address] [facility] 36on 03-04-2024 36 Patient called about the medication prescribed yesterday. Advised the medication sent to the pharmacy is the same Spiriva RX that he has been using. Conferred with RN in office to be sure no other RX was prescribed yesterday. Advised if he does not need the new RX yet it will be at the pharmacy when needed. Kim Ponce LPN [facility] AFB CULTUREon 03-03-2024 AFB CULTURE AFB CULTURE Referenc e No growth at 6 weeks AFB STAIN Reference No acid fast bacilli seen by fluorescent microscopy ORDER COMMENTS: Stain Reference Range: No acid fast bacilli seen by fluorescent microscopy. [ S = SUSCEPTIBLE R = RESISTANT I = INTERMEDIATE S-DD = Susceptible-dose dependent NS = Non-susceptible NO = No Interpretation ] [facility] Comment on above: Performed By: #### L [id number], [id number] #### Sorority Mother: NATIVIDAD BARTLETT ([phone]) [address] FUNGAL CULTUREon 03-03-2024 FUNGAL CULTURE FUNGAL CULTURE Reference No fungus isolated after 21 days [ S = SUSCEPTIBLE R = RESISTANT I = INTERMEDIATE S-DD = Susceptible-dose dependent NS = Non-susceptible NO = No Interpretation ] [facility] Comment on above: Performed By: #### L [id number] #### Sorority Mother: NATIVIDAD BARTLETT ([phone]) [facility] ([facility]) [address] [place] [address] FUNGAL STAINon 03-03-2024 FUNGAL STAIN FUNGAL STAIN Referen ce No fungal elements seen ORDER COMMENTS: Reference Range: No fungal elements seen [ S = SUSCEPTIBLE R = RESISTANT I = INTERMEDIATE S-DD = Susceptible-dose dependent NS = Non-susceptible NO = No Interpretation ] [facility] Comment on above: Performed By: #### L [id number], [id number] #### Sorority Mother: NATIVIDAD BARTLETT ([phone]) [facility] ([facility]) [address] [place] [address] Laboratory - Chemistry and C hemistry - challengeon 03-03-2024 Glucose [Mass/Vol] 124 mg/dL High 70 - 100 mg/dL [facility] No Panel Informationon 03-03 Interpretation and review of laboratory results Abnormal [facility] Performed by: [facility], [address] [place] [address] CLIA ID: [id number] [facility] There is no interpretation needed for this exam. IMAGING Radiology Study observation (narrative) [facility] Nursing Noteon 03-03-2024 Nursing Note Discharge instructio ns given to pt with good understanding [facility] Nursing Note Hand off to Damaris in PACU [facility] RESPIRATORY CULTURE AND STAI Non 03-03-2024 RESPIRATORY CULTURE AND STAIN RESPIRATORY CULTURE Reference No growth of normal respiratory jose. GRAM STAIN RESULT Reference No polymorphonuclear leukocytes seen No organisms seen [ S = SUSCEPTIBLE R = RESISTANT I = INTERMEDIATE S-DD = Susceptible-dose dependent NS = Non-susceptible NO = No Interpretation ] [facility] Comment on above: Performed By: #### L [id number], [id number] #### Sorority Mother: NATIVIDAD ABRTLETT ([phone]) [facility] ([facility]) [address] [place] [address] No Panel Informationon 02-27 [facility] 36on 02-25-2024 36 Patient is active [facility]. NAN for CPT 36361/26840. Call ref # [id number] [facility] 36 Instructions EBUS/ENB Endobronchial Ultrasound/Electro-Nas igational Bronchoscopy Procedure Date: March 03, 2024 Time: 1:00 PM Arrival Time: 12:00 PM Physician: Dr. Padilla Location: [facility], Endoscopy Department, [address] [place], [place] [id number] Please arrive at the hospital registration desk 1.5 hours prior to scheduled start of procedure. Make sure you have a known responsible adult to transport you home from the hospital as you will not be permitted to drive. Your procedure will be cancelled if you do not have someone to take you home. You can only use a taxi/bus/Uber/medical waste transportation technician if you have a known responsible adult to go with you. Do not drink alcohol before or after your procedure. No smoking of any kind and no chewing tobacco six hours prior to your procedure. If you experience any fever/sick symptoms prior to procedure, please call the nurse. Bring your insurance card and photo ID with you. 8 hours prior to scheduled procedure (5:00 AM) is the cut off for solid foods or thick liquids. You may have clear liquids (black coffee or tea without creamer, water, soda, broth and any juices you can see through without pulp until 2 hours (11:00 AM) prior to your scheduled start. Any blood thinning medications like Coumadin, Warfarin, Jantoven, Effient, Eliquis, Xarelto, Pradaxa, Pletal, Plavix, Bilinta, Heparin, Lovenox and Fragmin may need to be held prior to the procedure. Contact the nurse if you take any of these medications. You will need to hold your Ozempic for 7 days prior to your procedure. Please refrain from taking any non-steroidal anti-inflammatory medications (i.e. Advil, Aleve, Ibuprofen, Motrin, Naprosyn, Naproxen, Voltaren, Diclofenac, Celebrex, Mobic, Meloxicam) for 5 days prior to procedure. Tylenol (acetaminophen) is safe to use prior to procedure. If you are diabetic, please contact your physician that manages your medications and/or insulin for any adjustments that may be needed while you are on clear liquids then fasting for the majority of the day until after your procedure. Other medications can be taken as usual up to 2 hours (11:00 AM) prior as long as you are able to tolerate them on an empty stomach. Nothing by mouth after 11:00 AM. From registration you will go to the endoscopy unit, the staff there will get you checked in and start an intravenous catheter (IV). Our Anesthesia Team will ask you some health history questions prior and will be there to monitor you for the duration of your procedure. Dr. Padilla will be available to speak with you prior to your procedure in case you have any questions. The procedure itself usually lasts about 2 hours and you will be asleep the entire time. After the procedure you will be taken to the recovery area for monitoring. The procedure is planned as outpatient, and you will be discharged the same day. Estimated time at the hospital ranges from 4-5 hours the day of the procedure. The physician will use a small, flexible scope to go through your mouth and into the lung to sample the area(s) that were discussed with you. The scope has a channel that tools are inserted in to biopsy, collect specimens and/or wash the particular area. The physician will discuss any initial findings post procedure at the hospital with you. Final results typically come back within a week and a follow up will be scheduled based on the physician's recommendation. You are scheduled for a follow up telephone appointment March 11, 2024. Dr. Padilla will call around 3:15 PM to discuss results with you. Things to look for post procedure: Fever greater than 101F Coughing up/spitting up bright red blood greater than a teaspoon Increased Shortness of breath/distress and/ or sudden onset of chest pain (call 911 and head to the nearest emergency department) You will be sent home with discharge instructions. You can eat and drink as tolerated post procedure. You may experience some fatigue, irritation of the throat, increased coughing, and/or pink-blood tinged mucus after the procedure. This is normal and be expected to last about 24-48 hours. Over the counter medications such as lozenges, cough drops, chloraseptic sprays can help these symptoms. If you have any questions, please call: [phone] RN Clinical Coordinator [facility] Pulmonary Medicine [address] [place] [address], [address] [place] [address] 01/09/24 in PACS from [facility]-will review with [facility] if compatible for ENB Procedure placed on physician's outlook calendar? yes Does patient take blood thinners? No Does patient take ASA?Yes 81 mg HX bypass OK to continue Does patient take NSAIDS? No Does patient take diabetic medications? Yes - metformin Does patient take GLP1 medications? Yes Ozempic-last dose 02/21/24 patient will hold 02/28/24 dose until after procedure Does patient have Pacemaker, defibrillat (more content not included)... [facility] 36 Outside PET/CT image s uploaded and personally reviewed. Significant FDG uptake in RML mass, particularly the medial/infrahilar portion. Plan is the same, proceed with ENB/EBUS. [facility] 36on 02-22-2024 36 Patient was evaluate d in the lung nodule clinic today with Dr. Quinonez. Prior lung screening imaging and CT chest imaging from outside facilities is available for review in PACS. Sent request to [facility] for electronic push of recent 01/29/2024 PET scan. Awaiting bronchoscopy scheduling. [facility] Office Visiton 02-22-2024 Follow-up visit [id number] Aleks Costello 1950 [facility] Provider Department Center 02/22/2024 [id number] QUINONEZ [facility] PUL None No family history on file Level of Service:64358 SD OFFICE/OUTPATIENT NEW MODERATE MDM 45 MINUTES Reason for Visit and Comments: New Patient [542] [facility] PATINSon 02-22-2024 PATINS YOUR APPOINTMENT TOShahzad AY WAS WITH THE [facility] LUNG NODULE CLINIC, COPD CLINIC, PULMONARY AND SLEEP MEDICINE OFFICE. PLEASE CALL OUR OFFICE AT [phone] IF YOU HAVE NOT RECEIVED YOUR TEST RESULTS 7 DAYS AFTER TESTING IS COMPLETED. PLEASE REMEMBER TO REQUEST REFILLS AT YOUR OFFICE VISITS. PHONE/FAX REQUESTS REQUIRE 48-72 HOURS FOR RESPONSE. A FRIENDLY REMINDER COPAYS ARE DUE AT TIME OF SERVICE. THANK YOU. Our Patients Are Important! We want to improve and you can help. After your visit we want you to feel: Listened to, Respected and have your health care explained. You may receive a survey asking you about your visit. Please complete the survey. We will use your feedback to make improvements. COVID-19 VACCINATION INFORMATION: PH. [phone] [email or web address] /VACCINE [facility] Central Scheduling [phone] [facility] Sleep Scheduling [phone] [facility] Progress Noteon 02-22-2024 Progress Note [facility] Pulmonary Medicine [address], [address] [place] [address] Name: Aleks Costello : 1950 Age: 73 y.o. Visit Date: 02/22/24 Reason for Visit: lung mass History of Present Illness: Aleks Costello is a very pleasant 73 y.o. male presenting for evaluation for lung mass. Patient has a past medical history of: - COPD, emphysema - tobacco abuse (60 pack-year, quit 2008) - CAD s/p CABG and PCI on ASA 81 mg - MALI on CPAP - morbid obesity Patient is new to the [facility] pulmonary clinic, patient is already established with pulmonary medicine in [place], follows with Dr. Dajuan Victor. He was referred for abnormal CTA chest results on 01/09/24, which showed a spiculated 3.5 x 3.2 cm soft tissue density in the RML with adjacent right hilar lymphadenopathy, concerning for pulmonary malignancy. Subsequent PET/CT at [place] on 01/29/24 increased FDG uptake in this right infrahilar area with SUV max 6.8. Patient feels well today. He endorses chronic dyspnea with exertion (mMRC 2) and associated dry cough. He has sleep apnea well controlled on CPAP, does not know pressure settings, he sleeps well. He denies fever, chills, chest pain, wheezing, orthopnea, hemoptysis, abdominal pain, nausea, vomiting, diarrhea, constipation, lightheadedness, dizziness, dysuria, hematuria, melena, hematochezia, leg pain, leg swelling. He uses Symbicort 2 puffs BID and Spiriva handihaler. He has been on these inhalers since 2009. He rarely uses RPN albuterol. He is hemodynamically stable and in no acute distress. 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 Family History: No family history on file. No family status information on file. Social History: reports that he quit smoking about 15 years ago. His smoking use included cigarettes. He has quit using smokeless tobacco. He reports current alcohol use. Current Outpatient Medications Medication Instructions albuterol (PROVENTIL) 2 mg, Oral, 3 times daily aspirin 81 mg, Oral, Daily budesonide-formoterol (Symbicort) 80-4.5 MCG/ACT inhaler 2 puffs, Inhalation, 2 times daily, Rinse mouth with water after use to reduce aftertaste and incidence of candidiasis. Do not swallow. citalopram (CELEXA) 40 mg, Oral furosemide (LASIX) 40 mg, Oral losartan (COZAAR) 50 mg metFORMIN (GLUCOPHAGE) 1,000 mg, Oral, 2 times daily metoprolol tartrate (LOPRESSOR) 25 mg, Oral, Daily semaglutide (Ozempic) 4 MG/3ML solution pen-injector Semaglutide (Ozempic) 1 mg/dose (4 mg/3 mL) pen injector Active MG SC EVERY WEEK November 22, 2023 1:00am simvastatin (ZOCOR) 80 mg, Oral, Nightly terbinafine (LAMISIL) 250 mg, Oral, Daily tiotropium (Spiriva) 18 MCG inhalation capsule 18 capsules, Inhalation, Daily No Known Allergies Review of Symptoms: 10 systems reviewed and negative except as mentioned above. Physical Exam: Vitals: Blood pressure 124/70, pulse 94, resp. rate 18, height 5' 10 (1.778 m), weight (!) 344 lb (156 kg), SpO2 98%. General: AAOx3, NAD, pt is comfortable HEENT: normocephalic, no obvious trauma, moist oral and nasal mucosa, conjunctivae/corneas clear, upper dentures noted, Mallampati 2 RESPIRATORY: clear to auscultation bilaterally, no wheezing, no crackles CARDIOVASCULAR: +S1/S2, RRR, no murmurs, no rubs, no gallops, no obvious JVD, peripheral pulses palpable in UE and LE GASTROINTESTINAL: soft, nondistended, nontender, normal bowel sounds MUSCULOSKELETAL: no obvious deformities noted, no edema in b/l LE SKIN: warm and dry, intact, without obvious lesions NEUROLOGICAL: no gross motor deficits PSYCHIATRIC: appropriate to circumstances LYMPHATIC: no palpable lymphadenopathy Data Review: Labs No results for input(s): WBC , HGB , HCT in the last 72 hours. No lab exists for component: PLAT No results for input(s): NA , K , CL , CO2 , GLUCOSE , BUN , CREATININE , EGFR , CALCIUM , ALBUMIN , ALK , AST , ALT , PTT , INR in the last 72 hours. No lab exists for component: TP , TBILI PFT (05/29/18) - Trevor Absolute Value % Predicted Z-score FEV1/FVC 55% FEV1 2.02 58 FVC 3.64 78 TLC 8.10 121 RV/TLC 60 (ULN 51.4) DLCO 19.6 59 My personal interpretation: Spirometry shows moderate airflow obstruction with significant bronchodilator response. Lung volumes show hyperinflation. Gas transfer is moderately reduced by old criteria. PET/CT (01/29/24) - Trevor The increase in radiopharmaceutical concentration identified in the right infrahilar region fulfills quantitative criteria for neoplastic transformation with single-point technique. Histopathologic analysis is recommended. No other definitive scintigraphic abnormalities are obse (more content not included)... Normal [facility] .Auto Diffon 01-09-2024 Basophil, Absolute 0.0 10 3/mcL Normal 0.0-0.2 [facility] ([place]) Comment on above: Performed By: #### A RICKI, CBC, DIMER, ADIFF, PBNP #### [address] [address] Basophils/100 WBC (Bld) 0.3 % Normal 0.0-2.5 [facility] ([place]) Comment on above: Performed By: #### A RICKI, CBC, DIMER, ADIFF, PBNP #### [address] [address] Eosinophil, Absolute 0.5 10 3/mcL High 0.0-0.4 [facility] ([place]) Comment on above: Performed By: #### A RICKI, CBC, DIMER, ADIFF, PBNP #### [address] [address] Eosinophils/100 WBC (Bld) 3.9 % Normal 0.0-7.0 [facility] ([place]) Comment on above: Performed By: #### A RICKI, CBC, DIMER, ADIFF, PBNP #### [address] [address] Lymphocyte, Absolute 2.8 10 3/mcL Normal 0.8-3.9 [facility] ([place]) Comment on above: Performed By: #### A RICKI, CBC, DIMER, ADIFF, PBNP #### [address] [address] Lymphocytes/100 WBC (Bld) 22.3 % Normal 10.0-50.0 [facility] ([place]) Comment on above: Performed By: #### A RICKI, CBC, DIMER, ADIFF, PBNP #### [address] [address] Monocyte, Absolute 1.1 10 3/mcL High 0.2-1.0 [facility] ([place]) Comment on above: Performed By: #### A RICKI, CBC, DIMER, ADIFF, PBNP #### [address] [address] Monocytes/100 WBC (Bld) 8.6 % Normal 1.7-13.0 [facility] ([place]) Comment on above: Performed By: #### A RICKI, CBC, DIMER, ADIFF, PBNP #### [address] [address] Neutrophils/100 WBC (Bld) 64.9 % Normal 37.0-80.0 [facility] ([place]) Comment on above: Performed By: #### A RICKI, CBC, DIMER, ADIFF, PBNP #### [address] [address] .GFRon 01-09-2024 GFR 59 ml/min/1.73sqm Normal [facility] ([place]) Comment on above: Result Comment: GFR Population mean for , Non- Americans Ages 20-29 = 116 mL/min/1.73 sq.m. Ages 30-39 = 107 mL/min/1.73 sq.m. Ages 40-49 = 99 mL/min/1.73 sq.m. Ages 50-59 = 93 mL/min/1.73 sq.m. Ages 60-69 = 85 mL/min/1.73 sq.m. Ages 70+ = 75 mL/min/1.73 sq.m. Chronic Kidney Disease: Less than 60 mL/min/1.73 square meters End Stage Renal Disease: Less than 15 mL/min/1.73 square meters Performed By: #### A RICKI, CBC, DIMER, ADIFF, PBNP #### [address] [address] GFR Non- 48 ml/min/1.73sqm Normal [facility] ([place]) Comment on above: Result Comment: GFR Population mean for , Non- Americans Ages 20-29 = 116 mL/min/1.73 sq.m. Ages 30-39 = 107 mL/min/1.73 sq.m. Ages 40-49 = 99 mL/min/1.73 sq.m. Ages 50-59 = 93 mL/min/1.73 sq.m. Ages 60-69 = 85 mL/min/1.73 sq.m. Ages 70+ = 75 mL/min/1.73 sq.m. Chronic Kidney Disease: Less than 60 mL/min/1.73 square meters End Stage Renal Disease: Less than 15 mL/min/1.73 square meters Performed By: #### A RICKI, CBC, DIMER, ADIFF, PBNP #### [address] [address] .NEUABSon 01-09-2024 Neutrophil, Absolute 8.2 10 3/mcL High 2.9-6.2 [facility] ([place]) Comment on above: Performed By: #### A RICKI, CBC, DIMER, ADIFF, PBNP #### [address] [address] A1Con 01-09-2024 HbA1c (Bld) [Mass fraction] 6.7 % High 4.3-6.4 [facility] ([place]) Comment on above: Performed By: #### A RICKI, CBC, DIMER, ADIFF, PBNP #### [address] [address] ALT/SGPTon 01-09-2024 ALT [Catalytic activity/Vol] 36 U/L Normal 16-63 [facility] ([place]) Comment on above: Performed By: #### A RICKI, CBC, DIMER, ADIFF, PBNP #### [address] [address] Denny 01-09-2024 AST [Catalytic activity/Vol] 18 U/L Normal 10-40 [facility] ([place]) Comment on above: Performed By: #### A RICKI, CBC, DIMER, ADIFF, PBNP #### [address] [address] BMPon 01-09-2024 BUN/Creatinine Ratio 19 ratio Normal 7-27 [facility] ([place]) Comment on above: Performed By: #### A RICKI, CBC, DIMER, ADIFF, PBNP #### [address] [address] Calcium [Mass/Vol] 9.1 mg/dL Normal 8.4-10.2 [facility] ([place]) Comment on above: Performed By: #### A RICKI, CBC, DIMER, ADIFF, PBNP #### [address] [address] Chloride [Moles/Vol] 101 mmol/L Normal 98-107 [facility] ([place]) Comment on above: Performed By: #### A RICKI, CBC, DIMER, ADIFF, PBNP #### [address] [address] CO2 [Moles/Vol] 30 mmol/L Normal 23-31 [facility] ([place]) Comment on above: Performed By: #### A RICKI, CBC, DIMER, ADIFF, PBNP #### [address] [address] Creatinine [Mass/Vol] 1.44 mg/dL High 0.70-1.30 [facility] ([place]) Comment on above: Performed By: #### A RICKI, CBC, DIMER, ADIFF, PBNP #### [address] [address] Electrolyte Balance 5.0 mEq/L Normal 4.0-15.0 [facility] ([place]) Comment on above: Performed By: #### A RICKI, CBC, DIMER, ADIFF, PBNP #### [address] [address] Glucose [Mass/Vol] 141 mg/dL High 83-110 [facility] ([place]) Comment on above: Performed By: #### A RICKI, CBC, DIMER, ADIFF, PBNP #### [address] [address] Potassium [Moles/Vol] 5.1 mmol/L Normal 3.5-5.1 [facility] ([place]) Comment on above: Performed By: #### A RICKI, CBC, DIMER, ADIFF, PBNP #### [address] [address] Sodium [Moles/Vol] 136 mmol/L Normal 136-145 [facility] ([place]) Comment on above: Performed By: #### A RICKI, CBC, DIMER, ADIFF, PBNP #### [address] [address] Urea nitrogen [Mass/Vol] 28 mg/dL High 7-18 [facility] ([place]) Comment on above: Performed By: #### A RICKI, CBC, DIMER, ADIFF, PBNP #### [address] [address] CBCon 01-09-2024 Erythrocyte distribution width (RBC) [Ratio] 13.8 % Normal 11.5-14.5 [facility]) Comment on above: Performed By: #### A RICKI, CBC, DIMER, ADIFF, PBNP #### [address] [address] Hematocrit (Bld) [Volume fraction] 40.7 % Low 42.0-52.0 [facility] ([place]) Comment on above: Performed By: #### A RICKI, CBC, DIMER, ADIFF, PBNP #### [address] [address] Hgb 13.8 G/dL Low 14.0-18.0 [facility] ([place]) Comment on above: Performed By: #### A RICKI, CBC, DIMER, ADIFF, PBNP #### [address] [address] MCH (RBC) [Entitic mass] 32.1 pg High 27.0-31.2 [facility] ([place]) Comment on above: Performed By: #### A RICKI, CBC, DIMER, ADIFF, PBNP #### [address] [address] MCHC 34.0 G/dL Normal 31.8-35.4 [facility] ([place]) Comment on above: Performed By: #### A RICKI, CBC, DIMER, ADIFF, PBNP #### [address] [address] MCV (RBC) [Entitic vol] 94.4 fL High 80.0-94.0 [facility] ([place]) Comment on above: Performed By: #### A RICKI, CBC, DIMER, ADIFF, PBNP #### [address] [address] Platelet 266 10 3/mcL Normal 130-400 [facility] ([place]) Comment on above: Performed By: #### A RICKI, CBC, DIMER, ADIFF, PBNP #### [address] [address] Platelet mean volume (Bld) [Entitic vol] 8.6 fL Normal 7.4-10.4 [facility] ([place]) Comment on above: Performed By: #### A RICKI, CBC, DIMER, ADIFF, PBNP #### [address] [address] RBC 4.31 10 6/mcL Normal 4.04-6.13 [facility] ([place]) Comment on above: Performed By: #### A RICKI, CBC, DIMER, ADIFF, PBNP #### [address] [address] WBC 12.6 10 3/mcL High 4.6-10.8 [facility] ([place]) Comment on above: Performed By: #### A RICKI, CBC, DIMER, ADIFF, PBNP #### [address] [place], [place] [address] CT ANGIOGRAPHY CHEST W/CONTR Denny 01-09-2024 CT ANGIOGRAPHY CHEST W/CONTRAST ORIGINAL EXAMINATION: CTA OF THE CHEST01/09/2024 6:13 pm TECHNIQUE: CTA of the chest was performed after the administration of intravenous contrast. Multiplanar reformatted images are provided for review. MIP images are provided for review. Automated exposure control, iterative reconstruction, and/or weight based adjustment of the mA/kV was utilized to reduce the radiation dose to as low as reasonably achievable. COMPARISON: 12/07/2015 HISTORY: ORDERING SYSTEM PROVIDED HISTORY: Reason for Exam: chest pain; suspect PE FINDINGS: There is adequate contrast opacification of the pulmonary arterial vasculature. There is no filling defect or vessel cutoff to indicate pulmonary embolus to the level of the segmental arteries. No right ventricular strain. The thoracic aorta is normal in caliber. 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 There is extensive [place] coronary artery calcification. Mild gynecomastia. No pericardial effusion. There is inferoapical thinning. There is a 1.6 cm right hilar lymph node no subcarinal or paratracheal adenopathy is evident. At the right inferior hilar region in the right middle lobe, there is slightly spiculated soft tissue density measuring 3.5 x 3.2 cm on axial image 124. There are emphysematous changes throughout the lungs. No pleural effusion or pneumothorax. 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 No acute osseous abnormality. There is cholelithiasis without secondary evidence of cholecystitis. No acute upper abdominal findings. IMPRESSION: 1. No evidence of pulmonary embolism to the level of the segmental pulmonary arteries. 2. Right middle lobe soft tissue masslike consolidation with nearby right hilar adenopathy. Findings are concerning for malignancy or less likely pneumonia. 3. Emphysema. 4. Cholelithiasis without secondary evidence of cholecystitis. Interpreted by: Beka Cadet DO Preliminary Report By: Beka Cadet DO Electronically signed By Beka Cadet DO Dictated Date: 01/09/2024 6:15:47 PM Prelim Date: 01/09/2024 6:25:25 PM Sign Date: 01/09/2024 6:25:25 PM Ordering Provider: BALA Vega [facility] ([place]) DIMERon 01-09-2024 D-Dimer 1254 ng/mL D-DU High 0-230 [facility] ([place]) Comment on above: Result Comment: Resu lts reported in D-DU ng/mL. Positive for D-dimer. A positive D-Dimer may occur in the following: DVT, PE, DIC, Trauma, Cancer, Sepsis, , Rheumatoid arthritis, Myocardial infarction and Cirrhosis. The presence of Rheumatoid Factor and HAMA (human mouse antibody) produces an overestimation of test results. The result of the D-Dimer test should be evaluated in the context of all the clinical and laboratory data available. In those instances where the laboratory result does not agree with the clinical evaluation, additional tests should be performed accordingly. If the D-Dimer result is used to exclude DVT or PE, the recommended cutoff value is less than 230 ng/mL. The D-Dimer result should not be used alone to rule in DVT/PE, but should be used in conjunction with a clinical pretest probability (PTP)assessment model to exclude venous thromboembolism (VTE) in outpatients suspected of deep venous thrombosis (DVT) and pulmonary embolism (PE). Performed By: #### A RICKI, CBC, DIMER, ADIFF, PBNP #### [address] [address] LABORATORYOrdered By: SYSTEM SYSTEM on 01-09-2024 Troponin I.cardiac DL <= 0.01 ng/mL [Mass/Vol] 9 ng/L Normal 0 - 76 ng/L AO ADM SS Comment on above: Interpretive Data: H igh Sensitive Troponin I Reference Ranges: Female: 0-51 ng/L Male: 0-76 ng/L Testing performed on [employer] using a homogeneous sandwich chemiluminescent immunoassay based on Gliph technology. Basophil, Absolute 0.0 103/mcL Normal 0.0 - 0.2 10^3/mcL AO Workflow SS Basophils/100 WBC (Bld) 0.3 % Normal 0.0 - 2.5 % AO Workflow SS Eosinophil, Absolute 0.5 103/mcL High 0.0 - 0 .4 10^3/mcL AO Workflow SS Eosinophils/100 WBC (Bld) 3.9 % Normal 0.0 - 7.0 % AO Workflow SS Erythrocyte distribution width (RBC) [Ratio] 13.8 % Normal 11.5 - 14.5 % AO Workflow SS Hematocrit (Bld) [Volume fraction] 40.7 % Low 42.0 - 52.0 % AO Workflow SS Hemoglobin (Bld) [Mass/Vol] 13.8 G/dL Low 14.0 - 18.0 G/dL AO Workflow SS Lymphocyte, Absolute 2.8 103/mcL Normal 0.8 - 3 .9 10^3/mcL AO Workflow SS Lymphocytes/100 WBC (Bld) 22.3 % Normal 10.0 - 50.0 % AO Workflow SS MCH (RBC) [Entitic mass] 32.1 pg High 27.0 - 31.2 pg AO Workflow SS MCHC 34.0 G/dL Normal 31.8 - 35.4 G/dL AO Workflow SS MCV (RBC) [Entitic vol] 94.4 fL High 80.0 - 94.0 fL AO Workflow SS Monocyte, Absolute 1.1 103/mcL High 0.2 - 1.0 10^3/mcL AO Workflow SS Monocytes/100 WBC (Bld) 8.6 % Normal 1.7 - 13.0 % AO Workflow SS Natriuretic peptide.B prohormone N-Terminal [Mass/Vol] 112 pg/mL Normal 0 - 125 pg/mL AO ADM SS Comment on above: Interpretive Data: N T-proBNP results of less than 300 pg/mL effectively rules out acute congestive heart failure with 99% negative predictive value. Neutrophil, Absolute 8.2 103/mcL High 2.9 - 6 .2 10^3/mcL AO Workflow SS Neutrophils/100 WBC (Bld) 64.9 % Normal 37.0 - 80.0 % AO Workflow SS Platelet mean volume (Bld) [Entitic vol] 8.6 fL Normal 7.4 - 10.4 fL AO Workflow SS Platelets (Bld) [#/Vol] 266 103/mcL Normal 130 - 400 10^3/mcL AO Workflow SS RBC (Bld) [#/Vol] 4.31 106/mcL Normal 4.04 - 6.1 3 10^6/mcL AO Workflow SS WBC (Bld) [#/Vol] 12.6 103/mcL High 4.6 - 10.8 10^3/mcL AO Workflow SS ALT With P-5'-P [Catalytic activity/Vol] 36 U/L Normal 16 - 63 U/L AO ADM SS AST With P-5'-P [Catalytic activity/Vol] 18 U/L Normal 10 - 40 U/L AO ADM SS Calcium [Mass/Vol] 9.1 mg/dL Normal 8.4 - 10. 2 mg/dL AO ADM SS Chloride [Moles/Vol] 101 mmol/L Normal 98 - 10 7 mmol/L AO ADM SS CO2 [Moles/Vol] 30 mmol/L Normal 23 - 31 mmol/L AO ADM SS Creatinine [Mass/Vol] 1.44 mg/dL High 0.70 - 1.30 mg/dL AO ADM SS Electrolyte Balance 5.0 mEq/L Normal 4.0 - 15 .0 mEq/L AO ADM SS GFR/1.73 sq M.predicted among blacks MDRD (S/P/Bld) [Vol rate/Area] 59 ml/min/1.73sqm Invalid Interpretation Code AO Chemistry S Comment on above: Interpretive Data: GFR Population mean for , Non- Americans Ages 20-29 = 116 mL/min/1.73 sq.m. Ages 30-39 = 107 mL/min/1.73 sq.m. Ages 40-49 = 99 mL/min/1.73 sq.m. Ages 50-59 = 93 mL/min/1.73 sq.m. Ages 60-69 = 85 mL/min/1.73 sq.m. Ages 70+ = 75 mL/min/1.73 sq.m. Chronic Kidney Disease: Less than 60 mL/min/1.73 square meters End Stage Renal Disease: Less than 15 mL/min/1.73 square meters GFR/1.73 sq M.predicted among non-blacks MDRD (S/P/Bld) [Vol rate/Area] 48 ml/min/1.73sqm Invalid Interpretation Code AO Chemistry S Comment on above: Interpretive Data: GFR Population mean for , Non- Americans Ages 20-29 = 116 mL/min/1.73 sq.m. Ages 30-39 = 107 mL/min/1.73 sq.m. Ages 40-49 = 99 mL/min/1.73 sq.m. Ages 50-59 = 93 mL/min/1.73 sq.m. Ages 60-69 = 85 mL/min/1.73 sq.m. Ages 70+ = 75 mL/min/1.73 sq.m. Chronic Kidney Disease: Less than 60 mL/min/1.73 square meters End Stage Renal Disease: Less than 15 mL/min/1.73 square meters Glucose [Mass/Vol] 141 mg/dL High 83 - 110 mg/dL AO ADM SS HbA1c (Bld) [Mass fraction] 6.7 % High 4.3 - 6.4 % AO ADM SS Potassium [Moles/Vol] 5.1 mmol/L Normal 3.5 - 5.1 mmol/L AO ADM SS Sodium [Moles/Vol] 136 mmol/L Normal 136 - 145 mmol/L AO ADM SS Urea nitrogen [Mass/Vol] 28 mg/dL High 7 - 18 mg/dL AO ADM SS Urea nitrogen/Creatinine [Mass ratio] 19 ratio Normal 7 - 27 ratio AO ADM SS LABORATORYOrdered By: Elias escamilla on 01-09-2024 Fibrin D-dimer DDU (PPP) [Mass/Vol] 1254 ng/mL D-DU High 0 - 230 ng/mL D-DU AO [facility] SS Comment on above: Result Comment: Resu lts reported in D-DU ng/mL. Positive for D-dimer. A positive D-Dimer may occur in the following: DVT, PE, DIC, Trauma, Cancer, Sepsis, , Rheumatoid arthritis, Myocardial infarction and Cirrhosis. The presence of Rheumatoid Factor and HAMA (human mouse antibody) produces an overestimation of test results. Interpretive Data: T he result of the D-Dimer test should be evaluated in the context of all the clinical and laboratory data available. In those instances where the laboratory result does not agree with the clinical evaluation, additional tests should be performed accordingly. If the D-Dimer result is used to exclude DVT or PE, the recommended cutoff value is less than 230 ng/mL. The D-Dimer result should not be used alone to rule in DVT/PE, but should be used in conjunction with a clinical pretest probability (PTP)assessment model to exclude venous thromboembolism (VTE) in outpatients suspected of deep venous thrombosis (DVT) and pulmonary embolism (PE). PBNPon 01-09-2024 Natriuretic peptide B (Bld) [Mass/Vol] 112 pg/mL Normal 0-125 [facility] ([place]) Comment on above: Result Comment: NT-p roBNP results of less than 300 pg/mL effectively rules out acute congestive heart failure with 99% negative predictive value. Performed By: #### A RICKI, CBC, DIMER, ADIFF, PBNP #### [id number] [place], [place] [address] [facility] 01-09-2024 High Sensitivity Troponin I 9 ng/L Normal 0-76 [facility] ([place]) Comment on above: Result Comment: High Sensitive Troponin I Reference Ranges: Female: 0-51 ng/L Male: 0-76 ng/L Testing performed on [employer] using a homogeneous sandwich chemiluminescent immunoassay based on Gliph technology. Performed By: #### A RICKI, CBC, DIMER, ADIFF, PBNP #### [address] [place], [place] [address] XR CHEST 2 VIEWSon XR CHEST 2 VIEWS ORIGINAL EXAMINATION: TWO XRAY VIEWS OF THE CHEST01/09/2024 5:39 pm COMPARISON: 12/17/2016, 11/30/2015 HISTORY: ORDERING SYSTEM PROVIDED HISTORY: Reason for Exam: chest pain FINDINGS: There are median sternotomy wires and mediastinal clips. The cardiac silhouette is normal. There is increased prominence of the right infrahilar region. There is streaky bibasilar airspace opacities. No pleural effusion or pneumothorax. No acute osseous abnormality. IMPRESSION: 1. Prominence of the right infrahilar region, uncertain in etiology. Although this may be vascular in origin, underlying nodule or infiltrate not excluded. CT chest with contrast may help delineate. 2. Streaky bibasilar airspace opacities likely representing atelectasis. Interpreted by: Beka Cadet DO Preliminary Report By: Beka Cadet DO Electronically signed By Beka Cadet DO Dictated Date: 01/09/2024 5:40:12 PM Prelim Date: 01/09/2024 5:43:29 PM Sign Date: 01/09/2024 5:43:29 PM Ordering Provider: GILMAR BELTRAN Normal [facility] ([place]) .GFRon 10-10-2023 GFR Non- 45 ml/min/1.73sqm Normal [facility] ([place]) Comment on above: Result Comment: GFR Population mean for , Non- Americans Ages 20-29 = 116 mL/min/1.73 sq.m. Ages 30-39 = 107 mL/min/1.73 sq.m. Ages 40-49 = 99 mL/min/1.73 sq.m. Ages 50-59 = 93 mL/min/1.73 sq.m. Ages 60-69 = 85 mL/min/1.73 sq.m. Ages 70+ = 75 mL/min/1.73 sq.m. Chronic Kidney Disease: Less than 60 mL/min/1.73 square meters End Stage Renal Disease: Less than 15 mL/min/1.73 square meters Performed By: #### A RICKI, CBC, DIMER, ADIFF, PBNP #### [address] [address] GFR 55 ml/min/1.73sqm Normal [facility] ([place]) Comment on above: Result Comment: GFR Population mean for , Non- Americans Ages 20-29 = 116 mL/min/1.73 sq.m. Ages 30-39 = 107 mL/min/1.73 sq.m. Ages 40-49 = 99 mL/min/1.73 sq.m. Ages 50-59 = 93 mL/min/1.73 sq.m. Ages 60-69 = 85 mL/min/1.73 sq.m. Ages 70+ = 75 mL/min/1.73 sq.m. Chronic Kidney Disease: Less than 60 mL/min/1.73 square meters End Stage Renal Disease: Less than 15 mL/min/1.73 square meters Performed By: #### A RICKI, CBC, DIMER, ADIFF, PBNP #### [address] [address] BMPon 10-10-2023 BUN/Creatinine Ratio 20 ratio Normal 7-27 [facility] ([place]) Comment on above: Performed By: #### A RICKI, CBC, DIMER, ADIFF, PBNP #### [address] [address] Calcium [Mass/Vol] 9.4 mg/dL Normal 8.4-10.2 [facility] ([place]) Comment on above: Performed By: #### A RICKI, CBC, DIMER, ADIFF, PBNP #### [address] [address] Chloride [Moles/Vol] 102 mmol/L Normal 98-107 [facility] ([place]) Comment on above: Performed By: #### A RICKI, CBC, DIMER, ADIFF, PBNP #### [address] [address] CO2 [Moles/Vol] 31 mmol/L Normal 23-31 [facility] ([place]) Comment on above: Performed By: #### A RICKI, CBC, DIMER, ADIFF, PBNP #### [address] [address] Creatinine [Mass/Vol] 1.52 mg/dL High 0.70-1.30 [facility] ([place]) Comment on above: Performed By: #### A RICKI, CBC, DIMER, ADIFF, PBNP #### [address] [address] Electrolyte Balance 5.0 mEq/L Normal 4.0-15.0 [facility] ([place]) Comment on above: Performed By: #### A RICKI, CBC, DIMER, ADIFF, PBNP #### [address] [address] Glucose [Mass/Vol] 163 mg/dL High 83-110 [facility] ([place]) Comment on above: Performed By: #### A RICKI, CBC, DIMER, ADIFF, PBNP #### [address] [address] Potassium [Moles/Vol] 4.9 mmol/L Normal 3.5-5.1 [facility] ([place]) Comment on above: Performed By: #### A RICKI, CBC, DIMER, ADIFF, PBNP #### [address] [address] Sodium [Moles/Vol] 138 mmol/L Normal 136-145 [facility] ([place]) Comment on above: Performed By: #### A RICKI, CBC, DIMER, ADIFF, PBNP #### [address] [address] [place], [place] [address] Urea nitrogen [Mass/Vol] 31 mg/dL High 7-18 [facility] ([place]) Comment on above: Performed By: #### A RICKI, CBC, DIMER, ADIFF, PBNP #### [id number] [place], [place] [address] LABORATORYOrdered By: SYSTEM SYSTEM on 10-10-2023 Calcium [Mass/Vol] 9.4 mg/dL Normal 8.4 - 10. 2 mg/dL AO ADM SS Chloride [Moles/Vol] 102 mmol/L Normal 98 - 10 7 mmol/L AO ADM SS CO2 [Moles/Vol] 31 mmol/L Normal 23 - 31 mmol/L AO ADM SS Creatinine [Mass/Vol] 1.52 mg/dL High 0.70 - 1.30 mg/dL AO ADM SS Electrolyte Balance 5.0 mEq/L Normal 4.0 - 15 .0 mEq/L AO ADM SS GFR/1.73 sq M.predicted among blacks MDRD (S/P/Bld) [Vol rate/Area] 55 ml/min/1.73sqm Invalid Interpretation Code AO Chemistry S Comment on above: Interpretive Data: GFR Population mean for , Non- Americans Ages 20-29 = 116 mL/min/1.73 sq.m. Ages 30-39 = 107 mL/min/1.73 sq.m. Ages 40-49 = 99 mL/min/1.73 sq.m. Ages 50-59 = 93 mL/min/1.73 sq.m. Ages 60-69 = 85 mL/min/1.73 sq.m. Ages 70+ = 75 mL/min/1.73 sq.m. Chronic Kidney Disease: Less than 60 mL/min/1.73 square meters End Stage Renal Disease: Less than 15 mL/min/1.73 square meters GFR/1.73 sq M.predicted among non-blacks MDRD (S/P/Bld) [Vol rate/Area] 45 ml/min/1.73sqm Invalid Interpretation Code AO Chemistry S Comment on above: Interpretive Data: GFR Population mean for , Non- Americans Ages 20-29 = 116 mL/min/1.73 sq.m. Ages 30-39 = 107 mL/min/1.73 sq.m. Ages 40-49 = 99 mL/min/1.73 sq.m. Ages 50-59 = 93 mL/min/1.73 sq.m. Ages 60-69 = 85 mL/min/1.73 sq.m. Ages 70+ = 75 mL/min/1.73 sq.m. Chronic Kidney Disease: Less than 60 mL/min/1.73 square meters End Stage Renal Disease: Less than 15 mL/min/1.73 square meters Glucose [Mass/Vol] 163 mg/dL High 83 - 110 mg/dL AO ADM SS Potassium [Moles/Vol] 4.9 mmol/L Normal 3.5 - 5.1 mmol/L AO ADM SS Sodium [Moles/Vol] 138 mmol/L Normal 136 - 145 mmol/L AO ADM SS Urea nitrogen [Mass/Vol] 31 mg/dL High 7 - 18 mg/dL AO ADM SS Urea nitrogen/Creatinine [Mass ratio] 20 ratio Normal 7 - 27 ratio AO ADM SS .GFRon 10-01-2023 GFR 47 ml/min/1.73sqm Normal [facility] ([place]) Comment on above: Result Comment: GFR Population mean for , Non- Americans Ages 20-29 = 116 mL/min/1.73 sq.m. Ages 30-39 = 107 mL/min/1.73 sq.m. Ages 40-49 = 99 mL/min/1.73 sq.m. Ages 50-59 = 93 mL/min/1.73 sq.m. Ages 60-69 = 85 mL/min/1.73 sq.m. Ages 70+ = 75 mL/min/1.73 sq.m. Chronic Kidney Disease: Less than 60 mL/min/1.73 square meters End Stage Renal Disease: Less than 15 mL/min/1.73 square meters Performed By: #### A RICKI, CBC, DIMER, ADIFF, PBNP #### [place] [address] [address] GFR Non- 39 ml/min/1.73sqm Normal [facility] ([place]) Comment on above: Result Comment: GFR Population mean for , Non- Americans Ages 20-29 = 116 mL/min/1.73 sq.m. Ages 30-39 = 107 mL/min/1.73 sq.m. Ages 40-49 = 99 mL/min/1.73 sq.m. Ages 50-59 = 93 mL/min/1.73 sq.m. Ages 60-69 = 85 mL/min/1.73 sq.m. Ages 70+ = 75 mL/min/1.73 sq.m. Chronic Kidney Disease: Less than 60 mL/min/1.73 square meters End Stage Renal Disease: Less than 15 mL/min/1.73 square meters Performed By: #### A RICKI, CBC, DIMER, ADIFF, PBNP #### [address] [address] A1Con 10-01-2023 HbA1c (Bld) [Mass fraction] 6.5 % High 4.3-6.4 [facility] ([place]) Comment on above: Performed By: #### A RICKI, CBC, DIMER, ADIFF, PBNP #### [address] [address] ALT/SGPTon 10-01-2023 ALT [Catalytic activity/Vol] 25 U/L Normal 16-63 [facility] ([place]) Comment on above: Performed By: #### A RICKI, CBC, DIMER, ADIFF, PBNP #### [address] [address] Denny 10-01-2023 AST [Catalytic activity/Vol] 19 U/L Normal 10-40 [facility] ([place]) Comment on above: Performed By: #### A RICKI, CBC, DIMER, ADIFF, PBNP #### [address] [address] BMPon 10-01-2023 BUN/Creatinine Ratio 20 ratio Normal 7-27 [facility] ([place]) Comment on above: Performed By: #### A RICKI, CBC, DIMER, ADIFF, PBNP #### [address] [address] Calcium [Mass/Vol] 9.4 mg/dL Normal 8.4-10.2 [facility] ([place]) Comment on above: Performed By: #### A RICKI, CBC, DIMER, ADIFF, PBNP #### [address] [address] Chloride [Moles/Vol] 100 mmol/L Normal 98-107 [facility] ([place]) Comment on above: Performed By: #### A RICKI, CBC, DIMER, ADIFF, PBNP #### [address] [address] CO2 [Moles/Vol] 29 mmol/L Normal 23-31 [facility] ([place]) Comment on above: Performed By: #### A RICKI, CBC, DIMER, ADIFF, PBNP #### [address] [address] Creatinine [Mass/Vol] 1.73 mg/dL High 0.70-1.30 [facility] ([place]) Comment on above: Performed By: #### A RICKI, CBC, DIMER, ADIFF, PBNP #### [address] [address] Electrolyte Balance 10.0 mEq/L Normal 4.0-15.0 [facility] ([place]) Comment on above: Performed By: #### A RICKI, CBC, DIMER, ADIFF, PBNP #### [address] [address] Glucose [Mass/Vol] 142 mg/dL High 83-110 [facility] ([place]) Comment on above: Performed By: #### A RICKI, CBC, DIMER, ADIFF, PBNP #### [address] [address] Potassium [Moles/Vol] 4.8 mmol/L Normal 3.5-5.1 [facility] ([place]) Comment on above: Performed By: #### A RICKI, CBC, DIMER, ADIFF, PBNP #### [address] [address] Sodium [Moles/Vol] 139 mmol/L Normal 136-145 [facility] ([place]) Comment on above: Performed By: #### A RICKI, CBC, DIMER, ADIFF, PBNP #### [address] [place], [place] [address] Urea nitrogen [Mass/Vol] 34 mg/dL High 7-18 [facility] ([place]) Comment on above: Performed By: #### A RICKI, CBC, DIMER, ADIFF, PBNP #### [address] [place], [place] [address] LABORATORYOrdered By: SYSTEM SYSTEM on 10-01-2023 ALT With P-5'-P [Catalytic activity/Vol] 25 U/L Normal 16 - 63 U/L AO ADM SS AST With P-5'-P [Catalytic activity/Vol] 19 U/L Normal 10 - 40 U/L AO ADM SS Calcium [Mass/Vol] 9.4 mg/dL Normal 8.4 - 10. 2 mg/dL AO ADM SS Chloride [Moles/Vol] 100 mmol/L Normal 98 - 10 7 mmol/L AO ADM SS CO2 [Moles/Vol] 29 mmol/L Normal 23 - 31 mmol/L AO ADM SS Creatinine [Mass/Vol] 1.73 mg/dL High 0.70 - 1.30 mg/dL AO ADM SS Electrolyte Balance 10.0 mEq/L Normal 4.0 - 15 .0 mEq/L AO ADM SS GFR/1.73 sq M.predicted among blacks MDRD (S/P/Bld) [Vol rate/Area] 47 ml/min/1.73sqm Invalid Interpretation Code AO Chemistry S Comment on above: Interpretive Data: GFR Population mean for , Non- Americans Ages 20-29 = 116 mL/min/1.73 sq.m. Ages 30-39 = 107 mL/min/1.73 sq.m. Ages 40-49 = 99 mL/min/1.73 sq.m. Ages 50-59 = 93 mL/min/1.73 sq.m. Ages 60-69 = 85 mL/min/1.73 sq.m. Ages 70+ = 75 mL/min/1.73 sq.m. Chronic Kidney Disease: Less than 60 mL/min/1.73 square meters End Stage Renal Disease: Less than 15 mL/min/1.73 square meters GFR/1.73 sq M.predicted among non-blacks MDRD (S/P/Bld) [Vol rate/Area] 39 ml/min/1.73sqm Invalid Interpretation Code AO Chemistry S Comment on above: Interpretive Data: GFR Population mean for , Non- Americans Ages 20-29 = 116 mL/min/1.73 sq.m. Ages 30-39 = 107 mL/min/1.73 sq.m. Ages 40-49 = 99 mL/min/1.73 sq.m. Ages 50-59 = 93 mL/min/1.73 sq.m. Ages 60-69 = 85 mL/min/1.73 sq.m. Ages 70+ = 75 mL/min/1.73 sq.m. Chronic Kidney Disease: Less than 60 mL/min/1.73 square meters End Stage Renal Disease: Less than 15 mL/min/1.73 square meters Glucose [Mass/Vol] 142 mg/dL High 83 - 110 mg/dL AO ADM SS HbA1c (Bld) [Mass fraction] 6.5 % High 4.3 - 6.4 % AO ADM SS Potassium [Moles/Vol] 4.8 mmol/L Normal 3.5 - 5.1 mmol/L AO ADM SS Sodium [Moles/Vol] 139 mmol/L Normal 136 - 145 mmol/L AO ADM SS Urea nitrogen [Mass/Vol] 34 mg/dL High 7 - 18 mg/dL AO ADM SS Urea nitrogen/Creatinine [Mass ratio] 20 ratio Normal 7 - 27 ratio AO ADM SS LABORATORYOrdered By: Dipak Bonilla on 10-01-2023 Cholesterol [Mass/Vol] 137 mg/dL Normal 0 - 200 mg/dL AO ADM SS Comment on above: Interpretive Data: C holesterol Reference Interval: Less than 200 Desirable 200-239 Borderline high risk 240 and above High risk Cholesterol in HDL [Mass/Vol] 53 mg/dL Normal 40 - 60 mg/dL AO ADM SS Cholesterol in LDL [Mass/Vol] 66 mg/dL Normal 0 - 130 mg/dL AO ADM SS Triglyceride [Mass/Vol] 88 mg/dL Normal 0 - 150 mg/dL AO ADM SS Comment on above: Interpretive Data: T riglyceride Reference Interval: Less than 150 Normal 150-199 Borderline high risk 200-499 High risk 500 or higher Very high risk LIPIDon 10-01-2023 Cholesterol [Mass/Vol] 137 mg/dL Normal 0-200 [facility] ([place]) Comment on above: Result Comment: Chol esterol Reference Interval: Less than 200 Desirable 200-239 Borderline high risk 240 and above High risk Performed By: #### A RICKI, CBC, DIMER, ADIFF, PBNP #### [address] [address] Cholesterol in HDL [Mass/Vol] 53 mg/dL Normal 40-60 [facility] ([place]) Comment on above: Performed By: #### A RICKI, CBC, DIMER, ADIFF, PBNP #### [address] [address] Cholesterol in LDL [Mass/Vol] 66 mg/dL Normal 0-130 [facility] ([place]) Comment on above: Performed By: #### A RICKI, CBC, DIMER, ADIFF, PBNP #### [address] [address] Triglyceride [Mass/Vol] 88 mg/dL Normal 0-150 [facility] ([place]) Comment on above: Result Comment: Trig lyceride Reference Interval: Less than 150 Normal 150-199 Borderline high risk 200-499 High risk 500 or higher Very high risk Performed By: #### A RICKI, CBC, DIMER, ADIFF, PBNP #### [address] [address] PSAon 10-01-2023 Prostate Specific Antigen 1.84 ng/mL Normal 0.00-4.00 [facility] ([place]) Comment on above: Performed By: #### A RICKI, CBC, DIMER, ADIFF, PBNP #### [address] [address] .GFRon 06-29-2023 GFR 62 ml/min/1.73sqm Normal [facility] ([place]) Comment on above: Result Comment: GFR Population mean for , Non- Americans Ages 20-29 = 116 mL/min/1.73 sq.m. Ages 30-39 = 107 mL/min/1.73 sq.m. Ages 40-49 = 99 mL/min/1.73 sq.m. Ages 50-59 = 93 mL/min/1.73 sq.m. Ages 60-69 = 85 mL/min/1.73 sq.m. Ages 70+ = 75 mL/min/1.73 sq.m. Chronic Kidney Disease: Less than 60 mL/min/1.73 square meters End Stage Renal Disease: Less than 15 mL/min/1.73 square meters Performed By: #### A RICKI, CBC, DIMER, ADIFF, PBNP #### [address] [address] GFR Non- 51 ml/min/1.73sqm Normal [facility] ([place]) Comment on above: Result Comment: GFR Population mean for , Non- Americans Ages 20-29 = 116 mL/min/1.73 sq.m. Ages 30-39 = 107 mL/min/1.73 sq.m. Ages 40-49 = 99 mL/min/1.73 sq.m. Ages 50-59 = 93 mL/min/1.73 sq.m. Ages 60-69 = 85 mL/min/1.73 sq.m. Ages 70+ = 75 mL/min/1.73 sq.m. Chronic Kidney Disease: Less than 60 mL/min/1.73 square meters End Stage Renal Disease: Less than 15 mL/min/1.73 square meters Performed By: #### A RICKI, CBC, DIMER, ADIFF, PBNP #### [address] [address] A1Con 06-29-2023 HbA1c (Bld) [Mass fraction] 6.6 % High 4.3-6.4 [facility] ([place]) Comment on above: Performed By: #### A RICKI, CBC, DIMER, ADIFF, PBNP #### [address] [address] ALT/SGPTon 06-29-2023 ALT [Catalytic activity/Vol] 28 U/L Normal 16-63 [facility] ([place]) Comment on above: Performed By: #### A RICKI, CBC, DIMER, ADIFF, PBNP #### [address] [address] Denny 06-29-2023 AST [Catalytic activity/Vol] 16 U/L Normal 10-40 [facility] ([place]) Comment on above: Performed By: #### A RICKI, CBC, DIMER, ADIFF, PBNP #### [address] [address] BMPon 06-29-2023 BUN/Creatinine Ratio 12 ratio Normal 7-27 [facility] ([place]) Comment on above: Performed By: #### A RICKI, CBC, DIMER, ADIFF, PBNP #### [address] [address] Calcium [Mass/Vol] 9.1 mg/dL Normal 8.4-10.2 [facility] ([place]) Comment on above: Performed By: #### A RICKI, CBC, DIMER, ADIFF, PBNP #### [address] [address] Chloride [Moles/Vol] 100 mmol/L Normal 98-107 [facility] ([place]) Comment on above: Performed By: #### A RICKI, CBC, DIMER, ADIFF, PBNP #### [address] [address] CO2 [Moles/Vol] 30 mmol/L Normal 23-31 [facility] ([place]) Comment on above: Performed By: #### A RICKI, CBC, DIMER, ADIFF, PBNP #### [address] [address] Creatinine [Mass/Vol] 1.37 mg/dL High 0.70-1.30 [facility] ([place]) Comment on above: Performed By: #### A RICKI, CBC, DIMER, ADIFF, PBNP #### [address] [address] Electrolyte Balance 6.0 mEq/L Normal 4.0-15.0 [facility] ([place]) Comment on above: Performed By: #### A RICKI, CBC, DIMER, ADIFF, PBNP #### [address] [address] Glucose [Mass/Vol] 164 mg/dL High 83-110 [facility] ([place]) Comment on above: Performed By: #### A RICKI, CBC, DIMER, ADIFF, PBNP #### [address] [address] Potassium [Moles/Vol] 5.2 mmol/L High 3.5-5.1 [facility] ([place]) Comment on above: Performed By: #### A RICKI, CBC, DIMER, ADIFF, PBNP #### [address] [address] Sodium [Moles/Vol] 136 mmol/L Normal 136-145 [facility] ([place]) Comment on above: Performed By: #### A RICKI, CBC, DIMER, ADIFF, PBNP #### [address] [address] Urea nitrogen [Mass/Vol] 16 mg/dL Normal 7-18 [facility] ([place]) Comment on above: Performed By: #### A RICKI, CBC, DIMER, ADIFF, PBNP #### [address] [address] MALBRon 06-29-2023 U Creatinine 32.1 mg/dL Low 39.0-259.0 [facility] ([place]) Comment on above: Performed By: #### A RICKI, CBC, DIMER, ADIFF, PBNP #### [address] [address] U Microalb 1373 mcg/dL Normal [facility] ([place]) Comment on above: Performed By: #### A RICKI, CBC, DIMER, ADIFF, PBNP #### [address] [address] U Ratio Alb/Cre 43 mcg/mg High 0-30 [facility] ([place]) Comment on above: Performed By: #### A RICKI, CBC, DIMER, ADIFF, PBNP #### [address] [address] LABORATORYOrdered By: SYSTEM SYSTEM on 04-11-2023 Calcium [Mass/Vol] 9.2 mg/dL Invalid Interpretation Code 8.4 - 10.2 mg/dL AO ADM SS Chloride [Moles/Vol] 102 mmol/L Invalid Interpretation Code 98 - 107 mmol/L AO ADM SS CO2 [Moles/Vol] 30 mmol/L Invalid Interpretation Code 23 - 31 mmol/L AO ADM SS Creatinine [Mass/Vol] 1.23 mg/dL Invalid Interpretation Code 0.70 - 1.30 mg/dL AO ADM SS Electrolyte Balance 7.0 mEq/L Invalid Interpretation Code 4.0 - 15.0 mEq/L AO ADM SS GFR/1.73 sq M.predicted among blacks MDRD (S/P/Bld) [Vol rate/Area] 71 ml/min/1.73sqm Invalid Interpretation Code AO Chemistry S Comment on above: Interpretive Data: GFR Population mean for , Non- Americans Ages 20-29 = 116 mL/min/1.73 sq.m. Ages 30-39 = 107 mL/min/1.73 sq.m. Ages 40-49 = 99 mL/min/1.73 sq.m. Ages 50-59 = 93 mL/min/1.73 sq.m. Ages 60-69 = 85 mL/min/1.73 sq.m. Ages 70+ = 75 mL/min/1.73 sq.m. Chronic Kidney Disease: Less than 60 mL/min/1.73 square meters End Stage Renal Disease: Less than 15 mL/min/1.73 square meters GFR/1.73 sq M.predicted among non-blacks MDRD (S/P/Bld) [Vol rate/Area] 58 ml/min/1.73sqm Invalid Interpretation Code AO Chemistry S Comment on above: Interpretive Data: GFR Population mean for , Non- Americans Ages 20-29 = 116 mL/min/1.73 sq.m. Ages 30-39 = 107 mL/min/1.73 sq.m. Ages 40-49 = 99 mL/min/1.73 sq.m. Ages 50-59 = 93 mL/min/1.73 sq.m. Ages 60-69 = 85 mL/min/1.73 sq.m. Ages 70+ = 75 mL/min/1.73 sq.m. Chronic Kidney Disease: Less than 60 mL/min/1.73 square meters End Stage Renal Disease: Less than 15 mL/min/1.73 square meters Glucose [Mass/Vol] 129 mg/dL Invalid Interpretation Code 83 - 110 mg/dL AO ADM SS Potassium [Moles/Vol] 5.3 mmol/L Invalid Interpretation Code 3.5 - 5.1 mmol/L AO ADM SS Sodium [Moles/Vol] 139 mmol/L Invalid Interpretation Code 136 - 145 mmol/L AO ADM SS Urea nitrogen [Mass/Vol] 19 mg/dL Invalid Interpretation Code 7 - 18 mg/dL AO ADM SS Urea nitrogen/Creatinine [Mass ratio] 15 ratio Invalid Interpretation Code 7 - 27 ratio AO ADM SS LABORATORYOrdered By: SYSTEM SYSTEM on 03-29-2023 ALT With P-5'-P [Catalytic activity/Vol] 35 U/L Invalid Interpretation Code 16 - 63 U/L AO ADM SS AST With P-5'-P [Catalytic activity/Vol] 22 U/L Invalid Interpretation Code 10 - 40 U/L AO ADM SS Calcium [Mass/Vol] 9.2 mg/dL Invalid Interpretation Code 8.4 - 10.2 mg/dL AO ADM SS Chloride [Moles/Vol] 104 mmol/L Invalid Interpretation Code 98 - 107 mmol/L AO ADM SS CO2 [Moles/Vol] 30 mmol/L Invalid Interpretation Code 23 - 31 mmol/L AO ADM SS Creatinine [Mass/Vol] 1.54 mg/dL Invalid Interpretation Code 0.70 - 1.30 mg/dL AO ADM SS Electrolyte Balance 8.0 mEq/L Invalid Interpretation Code 4.0 - 15.0 mEq/L AO ADM SS GFR/1.73 sq M.predicted among blacks MDRD (S/P/Bld) [Vol rate/Area] 54 ml/min/1.73sqm Invalid Interpretation Code AO Chemistry S GFR/1.73 sq M.predicted among non-blacks MDRD (S/P/Bld) [Vol rate/Area] 45 ml/min/1.73sqm Invalid Interpretation Code AO Chemistry S Glucose [Mass/Vol] 169 mg/dL Invalid Interpretation Code 83 - 110 mg/dL AO ADM SS HbA1c (Bld) [Mass fraction] 7.2 % Invalid Interpretation Code 4.3 - 6.4 % AO ADM SS Potassium [Moles/Vol] 5.2 mmol/L Invalid Interpretation Code 3.5 - 5.1 mmol/L AO ADM SS Sodium [Moles/Vol] 142 mmol/L Invalid Interpretation Code 136 - 145 mmol/L AO ADM SS TSH Qn 1.55 m[IU]/L Invalid Interpretation Code 0.36 - 3.74 mcIU/mL AO ADM SS Urea nitrogen [Mass/Vol] 29 mg/dL Invalid Interpretation Code 7 - 18 mg/dL AO ADM SS Urea nitrogen/Creatinine [Mass ratio] 19 ratio Invalid Interpretation Code 7 - 27 ratio AO ADM SS LABORATORYOrdered By: [employer] on 01-03-2023 ALT With P-5'-P [Catalytic activity/Vol] 32 U/L Invalid Interpretation Code 16 - 63 U/L AO ADM SS AST With P-5'-P [Catalytic activity/Vol] 16 U/L Invalid Interpretation Code 10 - 40 U/L AO ADM SS Calcium [Mass/Vol] 9.1 mg/dL Invalid Interpretation Code 8.4 - 10.2 mg/dL AO ADM SS Chloride [Moles/Vol] 102 mmol/L Invalid Interpretation Code 98 - 107 mmol/L AO ADM SS CO2 [Moles/Vol] 28 mmol/L Invalid Interpretation Code 23 - 31 mmol/L AO ADM SS Creatinine [Mass/Vol] 1.03 mg/dL Invalid Interpretation Code 0.70 - 1.30 mg/dL AO ADM SS Electrolyte Balance 10.0 mEq/L Invalid Interpretation Code 4.0 - 15.0 mEq/L AO ADM SS GFR/1.73 sq M.predicted among blacks MDRD (S/P/Bld) [Vol rate/Area] 87 ml/min/1.73sqm Invalid Interpretation Code AO Chemistry S GFR/1.73 sq M.predicted among non-blacks MDRD (S/P/Bld) [Vol rate/Area] 71 ml/min/1.73sqm Invalid Interpretation Code AO Chemistry S Glucose [Mass/Vol] 230 mg/dL Invalid Interpretation Code 83 - 110 mg/dL AO ADM SS HbA1c (Bld) [Mass fraction] 7.7 % Invalid Interpretation Code 4.3 - 6.4 % AO ADM SS Potassium [Moles/Vol] 5.0 mmol/L Invalid Interpretation Code 3.5 - 5.1 mmol/L AO ADM SS Sodium [Moles/Vol] 140 mmol/L Invalid Interpretation Code 136 - 145 mmol/L AO ADM SS Urea nitrogen [Mass/Vol] 24 mg/dL Invalid Interpretation Code 7 - 18 mg/dL AO ADM SS Urea nitrogen/Creatinine [Mass ratio] 23 ratio Invalid Interpretation Code 7 - 27 ratio AO ADM SS LABORATORYOrdered By: SYSTEM SYSTEM on 11-16-2022 Calcium [Mass/Vol] 8.7 mg/dL Invalid Interpretation Code 8.4 - 10.2 mg/dL AO ADM SS Chloride [Moles/Vol] 104 mmol/L Invalid Interpretation Code 98 - 107 mmol/L AO ADM SS CO2 [Moles/Vol] 29 mmol/L Invalid Interpretation Code 23 - 31 mmol/L AO ADM SS Creatinine [Mass/Vol] 1.24 mg/dL Invalid Interpretation Code 0.70 - 1.30 mg/dL AO ADM SS Electrolyte Balance 10.0 mEq/L Invalid Interpretation Code 4.0 - 15.0 mEq/L AO ADM SS GFR 70 ml/min/1.73sqm Invalid Interpretation Code AO Chemistry S GFR Non- 58 ml/min/1.73sqm Invalid Interpretation Code AO Chemistry S Glucose [Mass/Vol] 141 mg/dL Invalid Interpretation Code 83 - 110 mg/dL AO ADM SS Potassium [Moles/Vol] 4.6 mmol/L Invalid Interpretation Code 3.5 - 5.1 mmol/L AO ADM SS Sodium [Moles/Vol] 143 mmol/L Invalid Interpretation Code 136 - 145 mmol/L AO ADM SS Urea nitrogen [Mass/Vol] 23 mg/dL Invalid Interpretation Code 7 - 18 mg/dL AO ADM SS Urea nitrogen/Creatinine [Mass ratio] 19 ratio Invalid Interpretation Code 7 - 27 ratio AO ADM SS LABORATORYOrdered By: SYSTEM SYSTEM on 09-20-2022 ALT With P-5'-P [Catalytic activity/Vol] 30 U/L Invalid Interpretation Code 16 - 63 U/L AO ADM SS AST With P-5'-P [Catalytic activity/Vol] 22 U/L Invalid Interpretation Code 10 - 40 U/L AO ADM SS Calcium [Mass/Vol] 9.3 mg/dL Invalid Interpretation Code 8.4 - 10.2 mg/dL AO ADM SS Chloride [Moles/Vol] 106 mmol/L Invalid Interpretation Code 98 - 107 mmol/L AO ADM SS CO2 [Moles/Vol] 29 mmol/L Invalid Interpretation Code 23 - 31 mmol/L AO ADM SS Creatinine [Mass/Vol] 1.17 mg/dL Invalid Interpretation Code 0.70 - 1.30 mg/dL AO ADM SS Electrolyte Balance 8.0 mEq/L Invalid Interpretation Code 4.0 - 15.0 mEq/L AO ADM SS GFR 75 ml/min/1.73sqm Invalid Interpretation Code AO Chemistry S GFR Non- 62 ml/min/1.73sqm Invalid Interpretation Code AO Chemistry S Glucose [Mass/Vol] 189 mg/dL Invalid Interpretation Code 83 - 110 mg/dL AO ADM SS HbA1c (Bld) [Mass fraction] 7.6 % Invalid Interpretation Code 4.3 - 6.4 % AO ADM SS Potassium [Moles/Vol] 5.4 mmol/L Invalid Interpretation Code 3.5 - 5.1 mmol/L AO ADM SS Sodium [Moles/Vol] 143 mmol/L Invalid Interpretation Code 136 - 145 mmol/L AO ADM SS Urea nitrogen [Mass/Vol] 20 mg/dL Invalid Interpretation Code 7 - 18 mg/dL AO ADM SS Urea nitrogen/Creatinine [Mass ratio] 17 ratio Invalid Interpretation Code 7 - 27 ratio AO ADM SS LABORATORYOrdered By: Leela Young on 09-20-2022 Cholesterol [Mass/Vol] 156 mg/dL Invalid Interpretation Code 0 - 200 mg/dL AO ADM SS Cholesterol in HDL [Mass/Vol] 63 mg/dL Invalid Interpretation Code 40 - 60 mg/dL AO ADM SS Cholesterol in LDL [Mass/Vol] 79 mg/dL Invalid Interpretation Code 0 - 130 mg/dL AO ADM SS Triglyceride [Mass/Vol] 72 mg/dL Invalid Interpretation Code 0 - 150 mg/dL AO ADM SS LABORATORYOrdered By: Zaid Velazco on 05-31-2022 ALT With P-5'-P [Catalytic activity/Vol] 31 U/L Invalid Interpretation Code 16 - 63 U/L AO ADM SS AST With P-5'-P [Catalytic activity/Vol] 17 U/L Invalid Interpretation Code 10 - 40 U/L AO ADM SS Calcium [Mass/Vol] 8.5 mg/dL Invalid Interpretation Code 8.4 - 10.2 mg/dL AO ADM SS Chloride [Moles/Vol] 104 mmol/L Invalid Interpretation Code 98 - 107 mmol/L AO ADM SS CO2 [Moles/Vol] 30 mmol/L Invalid Interpretation Code 23 - 31 mmol/L AO ADM SS Creatinine [Mass/Vol] 1.08 mg/dL Invalid Interpretation Code 0.70 - 1.30 mg/dL AO ADM SS Electrolyte Balance 7.0 mEq/L Invalid Interpretation Code 4.0 - 15.0 mEq/L AO ADM SS Glucose [Mass/Vol] 90 mg/dL Invalid Interpretation Code 83 - 110 mg/dL AO ADM SS Potassium [Moles/Vol] 4.6 mmol/L Invalid Interpretation Code 3.5 - 5.1 mmol/L AO ADM SS Sodium [Moles/Vol] 141 mmol/L Invalid Interpretation Code 136 - 145 mmol/L AO ADM SS Urea nitrogen [Mass/Vol] 16 mg/dL Invalid Interpretation Code 7 - 18 mg/dL AO ADM SS Urea nitrogen/Creatinine [Mass ratio] 15 ratio Invalid Interpretation Code 7 - 27 ratio AO ADM SS LABORATORYOrdered By: SYSTEM SYSTEM on 05-31-2022 GFR 82 ml/min/1.73sqm Invalid Interpretation Code AO Chemistry S GFR Non- 68 ml/min/1.73sqm Invalid Interpretation Code AO Chemistry S LABORATORYOrdered By: Leela Young on 05-31-2022 HbA1c (Bld) [Mass fraction] 6.9 % Invalid Interpretation Code 4.3 - 6.4 % AO ADM SS LABORATORYOrdered By: Zaid Velazco on 01-18-2022 Albumin DL <= 20 mg/L (U) [Mass/Vol] 6112 mcg/dL Invalid Interpretation Code AO ADM SS Albumin/Creatinine DL <= 20 mg/L (U) [Mass ratio] 20 mcg/mg Invalid Interpretation Code 0 - 30 mcg/mg AO ADM SS Creatinine (U) [Mass/Vol] 299.4 mg/dL Invalid Interpretation Code 39.0 - 259.0 mg/dL AO ADM SS LABORATORYOrdered By: Leela Young on 01-18-2022 ALT With P-5'-P [Catalytic activity/Vol] 29 U/L Invalid Interpretation Code 16 - 63 U/L AO ADM SS AST With P-5'-P [Catalytic activity/Vol] 23 U/L Invalid Interpretation Code 10 - 40 U/L AO ADM SS Calcium [Mass/Vol] 9.5 mg/dL Invalid Interpretation Code 8.4 - 10.2 mg/dL AO ADM SS Chloride [Moles/Vol] 99 mmol/L Invalid Interpretation Code 98 - 107 mmol/L AO ADM SS CO2 [Moles/Vol] 29 mmol/L Invalid Interpretation Code 23 - 31 mmol/L AO ADM SS Creatinine [Mass/Vol] 1.28 mg/dL Invalid Interpretation Code 0.70 - 1.30 mg/dL AO ADM SS Electrolyte Balance 9.0 mEq/L Invalid Interpretation Code 4.0 - 15.0 mEq/L AO ADM SS Glucose [Mass/Vol] 176 mg/dL Invalid Interpretation Code 80 - 115 mg/dL AO ADM SS Potassium [Moles/Vol] 4.8 mmol/L Invalid Interpretation Code 3.5 - 5.1 mmol/L AO ADM SS Sodium [Moles/Vol] 137 mmol/L Invalid Interpretation Code 136 - 145 mmol/L AO ADM SS Urea nitrogen [Mass/Vol] 25 mg/dL Invalid Interpretation Code 7 - 18 mg/dL AO ADM SS Urea nitrogen/Creatinine [Mass ratio] 20 ratio Invalid Interpretation Code 7 - 27 ratio AO ADM SS LABORATORYOrdered By: SYSTEM SYSTEM on 01-18-2022 GFR 68 ml/min/1.73sqm Invalid Interpretation Code AO Chemistry S GFR Non- 56 ml/min/1.73sqm Invalid Interpretation Code AO Chemistry S LABORATORYOrdered By: Gabriel Kulkarni on 01-18-2022 HbA1c (Bld) [Mass fraction] 6.3 % Invalid Interpretation Code 4.3 - 6.4 % AO ADM SS LABORATORYOrdered By: Leela Young on 09-28-2021 ALT With P-5'-P [Catalytic activity/Vol] 31 U/L Invalid Interpretation Code 16 - 63 U/L AO ADM SS AST With P-5'-P [Catalytic activity/Vol] 20 U/L Invalid Interpretation Code 10 - 40 U/L AO ADM SS Calcium [Mass/Vol] 9.2 mg/dL Invalid Interpretation Code 8.4 - 10.2 mg/dL AO ADM SS Chloride [Moles/Vol] 104 mmol/L Invalid Interpretation Code 98 - 107 mmol/L AO ADM SS Cholesterol [Mass/Vol] 154 mg/dL Invalid Interpretation Code 0 - 200 mg/dL AO ADM SS Cholesterol in HDL [Mass/Vol] 58 mg/dL Invalid Interpretation Code 40 - 60 mg/dL AO ADM SS Cholesterol in LDL [Mass/Vol] 84 mg/dL Invalid Interpretation Code 0 - 130 mg/dL AO ADM SS CO2 [Moles/Vol] 28 mmol/L Invalid Interpretation Code 23 - 31 mmol/L AO ADM SS Creatinine [Mass/Vol] 1.12 mg/dL Invalid Interpretation Code 0.70 - 1.30 mg/dL AO ADM SS Electrolyte Balance 8.0 mEq/L Invalid Interpretation Code AO ADM SS Glucose [Mass/Vol] 131 mg/dL Invalid Interpretation Code 80 - 115 mg/dL AO ADM SS HbA1c (Bld) [Mass fraction] 7.4 % Invalid Interpretation Code 4.3 - 6.4 % AO ADM SS Potassium [Moles/Vol] 4.6 mmol/L Invalid Interpretation Code 3.5 - 5.1 mmol/L AO ADM SS Sodium [Moles/Vol] 140 mmol/L Invalid Interpretation Code 136 - 145 mmol/L AO ADM SS Triglyceride [Mass/Vol] 62 mg/dL Invalid Interpretation Code 0 - 150 mg/dL AO ADM SS Urea nitrogen [Mass/Vol] 25 mg/dL Invalid Interpretation Code 7 - 18 mg/dL AO ADM SS Urea nitrogen/Creatinine [Mass ratio] 22 ratio Invalid Interpretation Code 7 - 27 ratio AO ADM SS LABORATORYOrdered By: SYSTEM SYSTEM on 09-28-2021 GFR 79 ml/min/1.73sqm Invalid Interpretation Code AO Chemistry S GFR Non- 65 ml/min/1.73sqm Invalid Interpretation Code AO Chemistry S Vital Signs Date Time Vital Sign Value Performing Clinician Facility 04-08-2024 14:16-0400 Body mass index (BMI) [Ratio] 49.36 kg/m2 Berkley Mondragon MD Work Phone: [facility] [employer] 04-08-2024 14:16-0400 Body weight 156.04 kg Berkley Mondragon MD Work Phone: [facility] [employer] 04-08-2024 14:16-0400 Diastolic blood pressure 74 mm[Hg] Berkley Mondragon MD Work Phone: [facility] [employer] 04-08-2024 14:16-0400 Heart rate 94 /min Berkley Mondragon MD Work Phone: [facility] [employer] 04-08-2024 14:16-0400 Systolic blood pressure 114 mm[Hg] Berkley Mondragon MD Work Phone: [facility] [employer] 03-03-2024 15:05-0400 Body temperature 97.59 [degF] Marcos Padilla MD Work Phone: [facility] [employer] 03-03-2024 15:05-0400 Diastolic blood pressure 78 mm[Hg] Marcos Padilla MD Work Phone: [facility] [employer] 03-03-2024 15:05-0400 Heart rate 79 /min Marcos Padilla MD Work Phone: [facility] [employer] 03-03-2024 15:05-0400 Respiratory rate 12 /min Marcos Padilla MD Work Phone: [facility] [employer] 03-03-2024 15:05-0400 SaO2% (BldA) [Mass fraction] 98 % Marcos Padilla MD Work Phone: [facility] [employer] 03-03-2024 15:05-0400 Systolic blood pressure 116 mm[Hg] Marcos Padilla MD Work Phone: [facility] [employer] 02-22-2024 12:52-0400 Body height 177.8 cm Ace Quinonez MD Work Phone: [facility] [employer] 02-22-2024 12:52-0400 Body mass index (BMI) [Ratio] 49.36 kg/m2 Ace Quinonez MD Work Phone: [facility] [employer] 02-22-2024 12:52-0400 Body weight 156.04 kg Ace Quinonez MD Work Phone: [facility] [employer] 02-22-2024 12:52-0400 Diastolic blood pressure 70 mm[Hg] Ace Quinonez MD Work Phone: [facility] [employer] 02-22-2024 12:52-0400 Heart rate 94 /min Ace Quinonez MD Work Phone: [facility] [employer] 02-22-2024 12:52-0400 Respiratory rate 18 /min Ace Quinonez MD Work Phone: [facility] [employer] 02-22-2024 12:52-0400 SaO2% (BldA) [Mass fraction] 98 % Ace Quinoenz MD Work Phone: [facility] [employer] Comment on above: 02-22-2024 12:52-0400 Systolic blood pressure 124 mm[Hg] Ace Quinonez MD Work Phone: [facility] 01-09-2024 18:47-0400 Diastolic Blood Pressure Non-Invasive 59 mm[Hg] BALA CARMONA MD [facility] 01-09-2024 18:47-0400 Heart rate 92 /min BALA CARMONA MD [facility] 01-09-2024 18:47-0400 Reason For Taking VItal Signs BALA CARMONA MD [facility] 01-09-2024 18:47-0400 Respiratory rate 18 /min BALA CARMONA MD [facility] 01-09-2024 18:47-0400 Systolic Blood Pressure Non-Invasive 127 mm[Hg] BALA CARMONA MD [facility] 01-09-2024 17:31-0400 Body temperature 98.78 [degF] BALA CARMONA MD [facility] 01-09-2024 17:31-0400 Body weight 160 kg BALA CARMONA MD [facility] 01-09-2024 17:31-0400 Diastolic Blood Pressure Non-Invasive 90 mm[Hg] BALA CARMONA MD [facility] 01-09-2024 17:31-0400 Heart rate 107 /min BALA CARMONA MD [facility] 01-09-2024 17:31-0400 Respiratory rate 22 /min BALA CARMONA MD [facility] 01-09-2024 17:31-0400 Systolic Blood Pressure Non-Invasive 154 mm[Hg] BALA CARMONA MD [facility] 12-31-2023 14:13-0400 Diastolic Blood Pressure Non-Invasive 40 mm[Hg] MELISA FOSTER MD [facility] 12-31-2023 14:13-0400 Heart rate 95 /min MELISA FOSTER MD [facility] 12-31-2023 14:13-0400 Respiratory rate 16 /min MELISA FOSTER MD [facility] 12-31-2023 14:13-0400 Systolic Blood Pressure Non-Invasive 139 mm[Hg] MELISA FOSTER MD [facility] 12-31-2023 12:50-0400 Body temperature 98.6 [degF] MELISA FOSTER MD [facility] 12-31-2023 12:50-0400 Diastolic Blood Pressure Non-Invasive 72 mm[Hg] MELISA FOSTER MD [facility] 12-31-2023 12:50-0400 Heart rate 96 /min MELISA FOSTER MD [facility] 12-31-2023 12:50-0400 Respiratory rate 22 /min MELISA FOSTER MD [facility] 12-31-2023 12:50-0400 Systolic Blood Pressure Non-Invasive 142 mm[Hg] MELISA FOSTER MD [facility] Encounters Encounter Date Encounter Type Care Provider Facility Start: 05-21-2024 End: 05-21-2024 ambulatory Karen Casillas RN [facility] Start: 04-09-2024 End: 04-09-2024 ambulatory DOV DWYER MD Facility:B Start: 04-08-2024 End: 04-08-2024 ambulatory Karen Casillas RN [facility] Start: 04-08-2024 End: 04-08-2024 Telephone encounter Berkley Mondragon MD Work Phone: [facility] Comment on above: Orders Start: 04-08-2024 End: 04-08-2024 Office outpatient new 60 minutes Berkley Mondragon MD Work Phone: [facility] Comment on above: Malignant neoplasm o f middle lobe of right lung (HCC) Start: 03-11-2024 End: 03-11-2024 Phys/qhp telephone evaluation 21-30 min Marcos Padilla MD Work Phone: [facility] Comment on above: Malignant neoplasm o f middle lobe of right lung (HCC) (Primary Dx); Mediastinal adenopathy; Chronic obstructive pulmonary disease, unspecified COPD type (HCC); Morbid obesity (HCC) Start: 03-10-2024 End: 03-11-2024 ambulatory [facility] Start: 03-03-2024 End: 03-03-2024 ambulatory [facility] Start: 03-03-2024 End: 03-03-2024 Subsequent hospital visit by physician Marcos Padilla MD Work Phone: [facility] Comment on above: Lung mass; Lymphadenopathy Start: 02-28-2024 End: 02-28-2024 ambulatory ACE QUINONEZ [facility] Start: 02-28-2024 End: 02-28-2024 Subsequent hospital visit by physician Ace Quinonez MD Work Phone: [facility] Comment on above: Chronic obstructive pulmonary disease, unspecified COPD type (HCC) Start: 02-27-2024 Telephone encounter Tara Roe [facility] Comment on above: Care Coordination (E xpedite PFT ) Start: 02-25-2024 Telephone encounter Ace willis MD Work Phone: [facility] Comment on above: Care Coordination Start: 02-22-2024 End: 04-03-2024 Telephone encounter Tara Roe [facility] Comment on above: Care Coordination (O utside image request) Start: 02-22-2024 End: 02-22-2024 Office outpatient new 45 minutes Ace Quinonez MD Work Phone: [facility] Comment on above: Chronic obstructive pulmonary disease, unspecified COPD type (HCC) (Primary Dx) Start: 02-22-2024 End: 02-22-2024 ambulatory ACE QUINONEZ [facility] Start: 01-10-2024 End: 01-10-[address] GILMAR BELTRAN DO Facility:B Start: 01-10-2024 End: 01-10-[address] GILMAR BELTRAN DO [facility] Start: 01-09-2024 End: 01-09-2024 Emergency department patient visit BALA CARMONA MD [facility] Start: 01-09-2024 End: 01-09-2024 ambulatory FORTINO CROSS DO Facility:B Start: 01-09-2024 End: 01-09-[address] GILMAR BELTRAN DO [facility] Start: 01-09-2024 End: 01-09-2024 ambulatory FORTINO CROSS DO Facility:B Start: 01-09-2024 End: 01-09-2024 Patient encounter procedure DOV DWYER MD [facility] Start: 12-31-2023 End: 12-31-2023 Emergency department patient visit MELISA FOSTER MD [facility] Start: 10-10-2023 End: 10-10-2023 ambulatory DOV DWYER MD Facility:B Start: 10-10-2023 End: 10-10-2023 Patient encounter procedure DOV DWYER MD [facility] Start: 10-01-2023 End: 10-01-2023 Patient encounter procedure RENUKA Do [facility] [employer] Start: 10-01-2023 End: 10-01-2023 ambulatory RENUKA [facility] [employer] [employer] Facility:B Start: 06-29-2023 End: 06-29-2023 ambulatory DOV DWYER MD Facility:B Start: 04-11-2023 End: 04-11-2023 Patient encounter procedure DOV DWYER MD [facility] Start: 03-29-2023 End: 03-29-2023 Patient encounter procedure DOV DWYER MD [facility] Start: 01-03-2023 End: 01-03-2023 Patient encounter procedure DOV DWYER MD [facility] Start: 11-16-2022 End: 11-16-2022 Patient encounter procedure LIT KRISS [employer] Start: 09-20-2022 End: 09-20-2022 Patient encounter procedure DOV DWYER MD [facility] Start: 05-31-2022 End: 05-31-2022 Patient encounter procedure DOV DWYER MD [facility] Start: 01-18-2022 End: 01-18-2022 Patient encounter procedure DOV DWYER MD [facility] Start: 09-28-2021 End: 09-28-2021 Patient encounter procedure DOV DWYER MD [facility] Procedures Date Procedure Procedure Detail Performing Clinician Start: 03-03-2024 Glucose quantitative blood xcpt reagent strip Marcos Padilla MD Work Phone: Start: 03-03-2024 FL GUIDANCE OR USE O NLY - NON-RESULTABLE Marcos Padilla MD Work Phone: Start: 03-03-2024 Smr prim src gram/gi emsa stain bct fungi/cell Marcos Padilla MD Work Phone: Start: 02-28-2024 Brncdilat rspse spmt ry pre&post-brncdilat admn Ace Quinonez MD Work Phone: Start: 11-29-2020 Placement of stent CHARLENE DWYER MD Start: 11-29-2020 Post percutaneous tr ansluminal coronary angioplasty (finding) DOV DWYER MD Comment on above: Percutaneous interve ntion on the 80% stenosis in the mid right coronary. Stent placement. Balloon angioplasty. Start: 03-03-2019 Electrocardiographic monitoring DOV DWYER MD Comment on above: NSR Start: 11-07-2017 Cardiovascular stress testing DOV DWYER MD Comment on above: EF 46% Poststres judson cardial perfusion images showed moderate- severe perfusion defect at apical septal, apical inferior dowell, mild to moderate perfusion defect at mid and basal inferior wall, mild perfusion defect at apical mid anterior wall Closed fracture of s ternum (disorder) DOV DWYER MD Colonoscopy flx dx w /collj spec when pfrmd DOV DWYER MD Cyst - pilonidal (disorder) DOV DWYER MD Heart structure (bod y structure) DOV DWYER MD Comment on above: triple bypass History of coronary artery bypass grafting DOV DWYER MD History of coronary artery bypass grafting S/P CABG (coronary artery bypass graft)( Confirmed ) DOV DWYER MD Plan of Treatment Date Care Activity Detail Author Start: 01-08-2034 DTaP/Tdap/Td Vaccines (3 - Td or Tdap) DTaP/Tdap/Td Vaccines (3 - Td or Tdap) [facility] Start: 06-26-2024 End: 06-26-2024 Patient encounter procedure 06/26/2024 10:15 AM EDT Office Visit [facility] [address] [place] [address] Ace Quinonez MD [address] [place] [address] [facility] Start: 05-25-2024 COVID-19 Vaccine ( season) COVID-19 Vaccine ( season) [facility] Start: 05-25-2024 Influenza vaccination Influenza Vaccine (#1) [facility] Start: 04-16-2024 End: 04-16-2024 Patient encounter procedure 04/16/2024 9:00 AM EDT Appointment [facility] [address] [place] [id number] Ace Quinonez MD [address] [place] [address] [facility] Start: 04-08-2024 End: 04-08-2024 Patient encounter procedure 04/08/2024 9:30 AM EDT Office Visit [facility] [address] [place] [address] Berkley Mondragon MD [address] [facility] [place] [address] [facility] Start: 03-11-2024 End: 03-11-2024 Telemedicine consultation with patient 03/11/2024 3:15 PM EDT Telemedicine [facility] [address] [place] [phone] Marcos Padilla MD [address] [place] [address] [facility] Start: 03-03-2024 End: 03-03-2024 Admission to same day surgery center 03/03/2024 1:00 PM EDT - 03/03/2024 3:00 PM EDT Surgery [facility] Endoscopy [address] [place] [phone] Marcos Padilla MD [address] [place] [address] [place] [address] ELECTROMAGNETIC NAVIGATIONAL BRONCHOSCOPY WITH X-RAY [46316 (CPT )] [facility] Endoscopy Comment on above: ELECTROMAGNETIC NAVIGATIONAL BRONCHOSCOP Y WITH X-RAY [01700 (CPT )] Start: 03-03-2024 Subsequent hospital visit by physician 03/03/2024 1:00 PM EDT Hospital Encounter [facility] Endoscopy [address] [place] [phone] Marcos Padilla MD [address] [place] [address] [place] [address] [facility] Endoscopy Start: 03-03-2024 End: 03-03-2024 Brnschsc tnds ebus dx/tx intervention perph les [facility] Gastroenterology Start: 03-03-2024 End: 03-03-2024 Bronchoscopy w/cptr-asst image-guided navigation [facility] Start: 02-28-2024 End: 02-28-2024 Patient encounter procedure 02/28/2024 1:00 PM EDT Appointment [facility] [address] [place] [phone] Ace Quinonez MD [address] [place] [phone] [facility] Start: 02-22-2024 End: 02-21-2025 Complete PFT pre and post bronchodilator Complete PFT pre and post bronchodilator PFT Routine Chronic obstructive pulmonary disease, unspecified COPD type (HCC) Expected: 02/22/2024 (Approximate), Expires: 02/21/2025 [facility] Work Phone: Comment on above: Expected: 02/22/2024 (Approximate), Expi res: 02/21/2025 Start: 09-24-2023 Medicare Advantage Annual Wellness Visit Medicare Advantage Annual Wellness Visit [facility] Start: 05-25-2023 COVID-19 Vaccine ( season) COVID-19 Vaccine ( season) [facility] Start: 08-13-2019 Pneumococcal Vaccine: 65+ Years (3 of 3 - PPSV23 or PCV20) Pneumococcal Vaccine: 65+ Years (3 of 3 - PPSV23 or PCV20) [facility] Start: 2012 RSV Immunization aged 60 or older (1 - 1-dose 60+ series) RSV Immunization aged 60 or older (1 - 1-dose 60+ series) [facility] Start: 1970 Diabetes: Estimated Glomerular Filtration Rate for Kidney Health Diabetes: Estimated Glomerular Filtration Rate for Kidney Health [facility] Start: 1970 Diabetes: Urine Albumin-Creatinine Ratio for Kidney Health Diabetes: Urine Albumin-Creatinine Ratio for Kidney Health [facility] Start: 1970 Hepatitis C screening Hepatitis C Screening [facility] Start: 1964 Depression Screening Depression Screening [facility] Start: 1962 Diabetic foot examination Diabetes: Foot Exam [facility] Start: 1962 Glaucoma screening Diabetes: Retinopathy Screening [facility] Start: 1962 Preventive dental service Diabetes: Dental Exam [facility] Start: 1952 Hemoglobin A1c measurement Diabetes: Hemoglobin A1C [facility] Start: 1952 Lipid panel Lipid Panel [facility] Start: 1952 Screening for malignant neoplasm of colon [facility] Bacteria identified in Lower respiratory specimen by Aerobe culture Respiratory culture and Stain Microbiology Routine Lung mass Lymphadenopathy 03/03/2024 1:51 PM EDT [facility] Fine needle aspiration [facility] Comment on above: Release Upon Ordering for 1 Occurrences starting 03/03/2024, 1 completed Fungus identified in Unspecified specimen by Culture [facility] Comment on above: Release Upon Ordering for 1 Occurrences starting 03/03/2024 Fungus identified in Unspecified specimen by Fungus stain [facility] Comment on above: Release Upon Ordering for 1 Occurrences starting 03/03/2024 Mycobacterium sp identified in Unspecified specimen by Organism specific culture [facility] Comment on above: Release Upon Ordering for 1 Occurrences starting 03/03/2024 Non-Gynecologic Cytology [facility] Comment on above: Release Upon Ordering for 1 Occurrences starting 03/03/2024 Tissue exam [facility] Comment on above: Release Upon Ordering for 1 Occurrences starting 03/03/2024 End: 03-03-2024 XR Chest Single view [facility] Work Phone: Comment on above: Once for 1 Occurrences starting 03/03/20 24 until 03/03/2024 Immunizations Immunization Date Immunization Notes Care Provider Fa [facility] 01-09-2024 tetanus toxoid, redu justin diphtheria toxoid, and acellular pertussis vaccine, adsorbed; Translations: [Boostrix (Tdap)] DOV DWYER MD [facility] 08-14-2023 influenza, high dose seasonal, preservative-free; Translations: [Fluad Quadrivalent PF ] RENUKA CARNEY [facility] 08-14-2023 influenza virus vacc ine, unspecified formulation Tara Roe [facility] 08-01-2022 influenza, high dose seasonal, preservative-free DOV DWYER MD [facility] 08-02-2021 influenza, high dose seasonal, preservative-free; Translations: [Fluad Quadrivalent PF ] DOV DWYER MD [facility] 01-13-2021 COVID-19, mRNA, LNP- S, PF, 100 mcg/ 0.5 mL dose; Translations: [Moderna COVID-19 Vaccine] DOV DWYER MD [facility] 12-16-2020 SARS-CoV-2 (COVID-19 ) mRNA-1273 vaccine DOV DWYER MD [facility] 08-03-2020 influenza, injectabl e, quadrivalent, preservative free; Translations: [Fluarix PF Quadrivalent ] DOV DWYER MD [facility] 07-28-2019 influenza, injectabl e, quadrivalent, preservative free; Translations: [Fluarix PF Quadrivalent ] DOV DWYER MD [facility] 08-13-2018 pneumococcal conjuga te vaccine, 13 valent DOV DWYER MD [facility] 08-07-2018 influenza virus vacc ine, unspecified formulation DOV DWYER MD [facility] 07-25-2018 influenza virus vacc ine, unspecified formulation DOV DWYER MD [facility] 07-29-2012 pneumococcal polysaccharide vaccine, 23 valent DOV DWYER MD [facility] 09-24-2007 tetanus toxoid, redu justin diphtheria toxoid, and acellular pertussis vaccine, adsorbed DOV DWYER MD [facility] Payers Date Payer Category Payer Medicare [employer] [employer] MEDIC[employer]AGE [id number] 2023-Present [address] [place] [address] Medicare O [id number] 2023 Unknown [id number] 1952 Unknown [id number] 1952 Unknown [id number] 1952 Unknown [id number] 1952 Unknown [id number] 1952 Unknown [id number] 1952 Unknown [id number] 1952 Unknown [id number] 1952 Unknown [id number] 1952 Unknown [id number] 1952 Unknown [id number] Social History Date Type Detail Facility Start: 07-28-2019 End: 04-08-2024 Ex-smoker (finding) [facility] Start: 1950 Sex Assigned At Male [facility] Start: 09-24-1968 End: 09-24-2008 History of tobacco use Current smoker [facility] Start: 09-24-1968 End: 09-24-2008 History of tobacco use Cigarette Smoker [facility] Start: 02-22-2024 End: 04-08-2024 Cigarettes smoked current (pack per day) - Reported 1.5 [facility] Start: 02-22-2024 End: 04-08-2024 Tobacco use and exposure Former smokeless tobacco user [facility] Start: 02-22-2024 End: 04-08-2024 Alcohol intake Current drinker of alcohol (finding) [facility] Start: 02-22-2024 Alcohol Comment occ [facility] Start: 02-19-2024 Gender identity Identifies as male gender (finding) [facility] Start: 02-19-2024 Sexual orientation Heterosexual (fin ding) [facility] Start: 02-22-2024 End: 04-08-2024 Tobacco use panel [facility] Functional Status Date Assessment Result Facility 01-09-2024 Functional Status ID band on, Call device within reach, Bed in low position, Wheels locked, Bedside Cart Locked, Visitor at bedside, Safety level maintained [facility] 01-09-2024 Functional Status [facility] 12-31-2023 Functional Status Independent [facility] 12-31-2023 Functional Status Standard Safet y ID band on, Call device within reach, Bed in low position, Wheels locked, Bedside Cart Locked, Visitor at bedside, Safety level maintained [facility] Mental Status Date Assessment Result Facility 01-09-2024 Mental Status Orientation Oriented x 4 [facility] 01-09-2024 Mental Status [facility] 12-31-2023 Mental Status Orientation Oriented x 4 [facility] 12-31-2023 Mental Status [facility] Clinical Notes 12-31-2023 to 05-21-2024 Karen Casillas RN - 05/21/2024 11:59 PM EDTAddendum Note - Modesta Jean - 04/10/2024 11:12 AM EDTAddendum Note - Modesta Jean - 04/10/2024 11:12 AM EDTKaren Casillas RN - 04/08/2024 4:09 PM EDT Note Date & Type Note Facility 05-21-2024 History of Present illness Narrative Navigator confirmed with Gale at [facility] that patient is scheduled 04/24/[address] Gusman for consultation. documented in this encounter [facility] 05-21-2024 Note Navigator confirmed with Gale at [facility] that patient is scheduled 04/24/[address] Gusman for consultation. [facility] 04-16-2024 Note Bronch operative rep ort and thoracic conference recommendations faxed to Gale at [facility] radiation department. [facility] 04-10-2024 Note Referral/Records fax ed to [facility]. Fax confirmation received. Patient informed. [facility] 04-10-2024 Note Addended by: MODESTA JEAN on: 04/10/2024 11:12 AM Modules accepted: Orders [facility] 04-10-2024 Note Addended by: OMDESTA JEAN on: 04/10/2024 11:12 AM Modules accepted: Orders [facility] 04-10-2024 Miscellaneous Notes Addended by: MODESTA JEAN on: 04/10/2024 11:12 AM Modules accepted: Orders Addended by: MODESTA JEAN on: 04/08/2024 04:12 PM Modules accepted: Orders Orders Placed This Encounter Procedures External referral to Oncology Standing Status: Future Standing Expiration Date: 10/09/2024 Referral Priority: Routine Referral Type: Consultation Referral Reason: Specialty Services Required Requested Specialty: Oncology Number of Visits Requested: 1 documented in this encounter [facility] 04-08-2024 Note Addended by: MODESTA JEAN on: 04/08/2024 04:12 PM Modules accepted: Orders [facility] 04-08-2024 Note Addended by: MODESTA EJAN on: 04/08/2024 04:12 PM Modules accepted: Orders [facility] 04-08-2024 Note Addended by: MODESTA JEAN on: 04/08/2024 04:12 PM Modules accepted: Orders [facility] 04-08-2024 Miscellaneous Notes Addended by: MODESTA JEAN on: 04/08/2024 04:12 PM Modules accepted: Orders Orders Placed This Encounter Procedures External referral to Oncology Standing Status: Future Standing Expiration Date: 10/09/2024 Referral Priority: Routine Referral Type: Consultation Referral Reason: Specialty Services Required Requested Specialty: Oncology Number of Visits Requested: 1 documented in this encounter [facility] 04-08-2024 Note Orders Placed This E ncounter Procedures External referral to Oncology Standing Status: Future Standing Expiration Date: 10/09/2024 Referral Priority: Routine Referral Type: Consultation Referral Reason: Specialty Services Required Requested Specialty: Oncology Number of Visits Requested: 1 [facility] 04-08-2024 Telephone encounter Note Orders Placed This Encounter Procedures External referral to Oncology Standing Status: Future Standing Expiration Date: 10/09/2024 Referral Priority: Routine Referral Type: Consultation Referral Reason: Specialty Services Required Requested Specialty: Oncology Number of Visits Requested: 1 [facility] 04-08-2024 History of Present illness Narrative Oncology Nurse Navigator met with patient and Tanja at [facility] consultation. Navigator introduced self, role and barriers to care. Navigator reviewed and provided resource guide, ASC[employer] answers cancer sheet and lung cancer treatment guide. Patient reports no barriers at this time and has good support. Dr. Mondragon recommends radiation oncology referral as patient's COPD status would likely make surgery prohibitive. Patient requests referral to [facility]. Navigator will assist with referral. Patient encouraged to call with questions or concerns, contact information provided. Encouragement and emotional support provided. Navigator verified with [facility] that [facility] offers SBRT for lung cancer. documented in this encounter [facility] 04-08-2024 Note Oncology Nurse Navig ator met with patient and Tanja at [facility] consultation. Navigator introduced self, role and barriers to care. Navigator reviewed and provided resource guide, ASCO answers cancer sheet and lung cancer treatment guide. Patient reports no barriers at this time and has good support. Dr. Mondragon recommends radiation oncology referral as patient's COPD status would likely make surgery prohibitive. Patient requests referral to [facility]. Navigator will assist with referral. Patient encouraged to call with questions or concerns, contact information provided. Encouragement and emotional support provided. Navigator verified with Gale that [facility] offers SBRT for lung cancer. [facility] 04-08-2024 History of Present illness Narrative Images from the original note were not included. [facility] CARDIOVASCULAR & THORACIC SURGERY [address] [place] [address] [address] [facility] [address] Dept: [phone] Dept Loc: [phone] Visit type: New Reason for Visit: Malignant neoplasm right lung Assessment and plan This 73-year-old gentleman with a [id number] history of smoking and fairly severe COPD was found to have a 3.5 cm central mass located primarily in the right middle lobe but at the confluence of the fissures. PET scan demonstrated activity in this region but no evidence of distant disease. A needle biopsy suggested adenocarcinoma with negative lymph nodes. Because of the anatomic considerations for potential resection and this patient's comorbidities, including severe COPD precluding major pulmonary resection, we discussed the possibility of radiation therapy as opposed to surgical resection. The risks benefits and alternatives of both options were discussed. Patient wishes to pursue learning more about radiation therapy. We will make arrangements with radiation oncology to assess that possibility. History of Present Illness Aleks Costello is a 73 y.o. male referred by Dr. 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 Per note, patient with history of COPD, tobacco abuse (60 pack-year, quit 2008), CAD s/p CABG and PCI, MALI on CPAP, morbid obesity. Pt was originally referred to [facility] by [facility] pulmonary providers for consideration of advanced bronchoscopy after CT Lung Scan 01/09/24 at [facility] noted a spiculated 3.5 x 3.2 cm soft tissue density in the RML w/ adjacent right hilar lymphadenopathy. Sent for PET 01/29/24 with uptake in right infrahilar area with SUV max 6.8, no evidence of distant disease. Sent for EBUS/ENB 03/03/24. TBNA suggestive of adenocarcinoma, Lymph nodes 11L, 4R negative for malignancy. Lymph nodes 7, 11R showed atypical cells of uncertain significance. Respiratory culture, fungal stain/culture, AFB culture all negative. PFT 02/28/24 showed moderate obstruction and significant response to bronchodilator. Pt was presented at [facility] 03/11/[address] Surgery eval was recommended. Patient is a former smoker. Hgb A1C drawn 01/09/24 was 6.7%. Patient is here now for an evaluation. Past Medical History Past Medical History: Diagnosis Date COPD (chronic obstructive pulmonary disease) (HCC) Diabetes mellitus (HCC) Past Surgical History Past Surgical History: Procedure Laterality Date BRONCHOSCOPY 03/03/2024 EBUS/ENB CORONARY ARTERY BYPASS GRAFT Family History No family history on file. Social History Social History Tobacco Use Smoking status: Former Current packs/day: 0.00 Average packs/day: 1.5 packs/day for 40.0 years (60.0 ttl pk-yrs) Types: Cigarettes Start date: 1968 Quit date: 2008 Years since quittin.5 Smokeless tobacco: Former Substance Use Topics Alcohol use: Yes Comment: occ Allergies No Known Allergies Medications Current Outpatient Medications: HumuLIN 70/30 (70-30) 100 UNIT/ML injection, INJECT UP TO 100 UNITS SUBCUTANEOUSLY TWICE DAILY DIRECTED VIA SLIDING SCALE, Disp: , Rfl: albuterol (2.5 MG/3ML) 0.083% nebulizer solution, Take 2.5 mg by nebulization every 6 hours as needed for wheezing., Disp: , Rfl: albuterol 108 (90 Base) MCG/ACT inhaler, Inhale 2 puffs every 4 hours as needed for wheezing., Disp: , Rfl: aspirin 325 MG tablet, Take 81 mg by mouth daily., Disp: , Rfl: budesonide-formoterol (Symbicort) 80-4.5 MCG/ACT inhaler, Inhale 2 puffs in the morning and 2 puffs in the evening. Rinse mouth with water after use to reduce aftertaste and incidence of candidiasis. Do not swallow.., Disp: , Rfl: citalopram (CeleXA) 20 MG tablet, Take 40 mg by mouth., Disp: , Rfl: furosemide (Lasix) 40 MG tablet, Take 40 mg by mouth in the morning and 40 mg in the evening., Disp: , Rfl: losartan (Cozaar) 50 MG tablet, 50 mg., Disp: , Rfl: metFORMIN (Glucophage) 1000 MG tablet, Take 1,000 mg by mouth., Disp: , Rfl: metoprolol tartrate (Lopressor) 25 MG tablet, Take 25 mg by mouth daily., Disp: , Rfl: semaglutide (Ozempic) 4 MG/3ML solution pen-injector, Semaglutide (Ozempic) 1 mg/dose (4 mg/3 mL) pen injector Active MG SC EVERY WEEK November 22, 2023 1:00am, Disp: , Rfl: simvastatin (Zocor) 80 MG tablet, Take 80 mg by mouth Nightly., Disp: , Rfl: terbinafine (LamISIL) 250 MG tablet, Take 250 mg by mouth daily., Disp: , Rfl: tiotropium (Spiriva) 18 MCG inhalation capsule, Place 1 capsule (18 mcg) into inhaler and inhale in the morning., Disp: 90 capsule, Rfl: 3 Review of Systems Review of Systems Constitutional: Negative. HENT: Negative. Eyes: Negative. Respiratory: Positive for shortness of breath. Cardiovascular: Negative. Gastrointestinal: Negative. Endocrine: Negative. Genitourinary: Negative. Musculoskeletal: Negative. Skin: Negative. Allergic/Immunologic: Negative. Neurological: Negative. Hematological: Negative. Psychiatric/Behavioral: Negative. Physical Exam Vitals: BP 114/74 (BP Location: Left arm, Patient Position: Sitting, BP Cuff Size: Large adult) Pulse 94 Wt (!) 344 lb (156 kg) BMI 49.36 kg/m Constitutional: General: Not in acute distress. Appearance: Normal appearance. Not toxic-appearing. Ear, nose, mouth: Bilateral external ear and nose normal. Nose: Nose normal. Mouth: Appearance normal, no bleeding, moist mucus membranes Eyes: General: No scleral icterus. No discharge from bilateral eyes Extraocular Movements: Extraocular movements intact. Pupils equal and reactive bilaterally Cardiovascular: Heart: Regular rhythm. Normal heart sounds. Vascular: No carotid bruit. Edema: fairly prominent edema in bilateral lower extremities Pulmonary: Effort: Pulmonary effort is normal. No respiratory distress. Breath sounds: Distant breath sounds. No wheezing. Chest wall: No tenderness. Abdominal: Appearance: Not distended Palpations: There is no abdominal tenderness, no guarding. Musculoskeletal: Bilateral upper and lower extremities: Normal range of motion, no deformity Head: Normocephalic and atraumatic. Neck: Normal range of motion and neck supple. No muscular tenderness. Lymphadenopathy: Cervical: No cervical adenopathy. Skin: General: Skin is warm and dry. Coloration: Skin is not jaundiced. Neurological: General: No focal deficit present. Cranial Nerves: No obvious cranial nerve deficit. Psychiatric: Mood and Affect: Mood normal. Thought Content: Thought content normal. Patient has good judgement and insight Mental Status: Alert and oriented to place, person, and time. Labs No results found for: WBC , HGB , PLT , NA , K , CREATININE Imaging PFT 02/28/24 PET 01/29/24 CTA Chest 01/09/24 FINDINGS: There is adequate contrast opacification of the pulmonary arterial vasculature. There is no filling defect or vessel cutoff to indicate pulmonary embolus to the level of the segmental arteries. No right ventricular strain. The thoracic aorta is normal in caliber. 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 There is extensive [place] coronary artery calcification. Mild gynecomastia. No pericardial effusion. There is inferoapical thinning. There is a 1.6 cm right hilar lymph node no subcarinal or paratracheal adenopathy is evident. At the right inferior hilar region in the right middle lobe, there is slightly spiculated soft tissue density measuring 3.5 x 3.2 cm on axial image 124. There are emphysematous changes throughout the lungs. No pleural effusion or pneumothorax. 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 No acute osseous abnormality. There is cholelithiasis without secondary evidence of cholecystitis. No acute upper abdominal findings. IMPRESSION: 1. No evidence of pulmonary embolism to the level of the segmental pulmonary arteries. 2. Right middle lobe soft tissue masslike consolidation with nearby right hilar adenopathy. Findings are concerning for malignancy or less likely pneumonia. 3. Emphysema. 4. Cholelithiasis without secondary evidence of cholecystitis. CXR 01/09/24 FINDINGS: There are median sternotomy wires and mediastinal clips. The cardiac silhouette is normal. There is increased prominence of the right infrahilar region. There is streaky bibasilar airspace opacities. No pleural effusion or pneumothorax. No acute osseous abnormality. IMPRESSION: 1. Prominence of the right infrahilar region, uncertain in etiology. Although this may be vascular in origin, underlying nodule or infiltrate not excluded. CT chest with contrast may help delineate. 2. Streaky bibasilar airspace opacities likely representing atelectasis. CT Lung Screen 09/12/23 CT Lung Screen 08/25/22 Patient Care Team: PCP: Fortino Cross DO Pulmonology: Marcos Padilla MD Disclaimer INFORMED CONSENT:The nature and purpose of the proposed treatment or procedure have been discussed. The risks and benefits of the proposed treatment or procedures have been reviewed. Alternatives have been reviewed in addition to the risks and benefits of not receiving treatments or undergoing procedures. Pursuant to this discussion, the patient agrees to undergo the proposed treatment or procedure. Captured images seen in this note from are not a substitute for a comprehensive interpretation of the entire data set as reflected by the interpreting physician with regard to radiology, echocardiography, and other diagnostic images. This note may have been dictated using [employer] Practice Edition 2.6 and/or Cynny Voice Recognition Feature. The document was proofread, however unrecognized voice recognition road roller engineer errors may be present. documented in this encounter [facility] 03-11-2024 History of Present illness Narrative Patient was identified and seen today via Telehealth by agreement and consent. I used the following Telehealth technology: Audio capability only. Total length of call 23 minutes. The patient was offered and advised video for a more comprehensive evaluation, but the patient declined or was unable to use video. Patient location: Patient Location: Home. This patient encounter is appropriate and reasonable under the circumstances: patient preference . The patient has been advised of the potential risks and limitations of this mode of treatment (including but not limited to the absence of in-person examination) and has agreed to be treated in a remote fashion in spite of them. Any and all of the patient's/patient's family's questions on this issue have been answered and I have made no promises or guarantees to the patient. The patient has also been advised to contact this office for worsening conditions or problems, and seek emergency medical treatment and/or call 911 if the patient deems either necessary. The patient stated that they are currently in the [facility]. If the patient is a minor, permission has been obtained by the parent or guardian for the patient to receive medical care at this visit. Chief Complaint: Chief Complaint Patient presents with Lung Cancer History of Present Illness: HPI Follow up after EBUS and navigational bronchoscopy to evaluate an enlarging RML/perihilar lung mass. Sampling of the lung mass demonstrates pulmonary adenocarcinoma. Kiet sampling of 4R is negative for malignancy, however the right hilar node and station 7 showed a few atypical cells (no overt malignancy though). He has COPD as well, although PFTs are acceptable for surgical resection if otherwise indicated. His case was reviewed at our multidisciplinary thoracic conference today. I reviewed his pathology, cytology, imaging, and PFTs results and discussed with him today. Past Medical History: Past Medical History: Diagnosis Date Diabetes mellitus (HCC) Social History: Social History Socioeconomic History Marital status: Tobacco Use Smoking status: Former Current packs/day: 0.00 Average packs/day: 1.5 packs/day for 40.0 years (60.0 ttl pk-yrs) Types: Cigarettes Start date: 1968 Quit date: 2008 Years since quittin.4 Smokeless tobacco: Former Substance and Sexual Activity Alcohol use: Yes Comment: occ Family History: No family history on file. ROS: Review of Systems Respiratory: Positive for cough and shortness of breath. All other systems reviewed and are negative. Medications: Current Outpatient Medications Medication Sig Dispense Refill albuterol (Proventil) 2 MG tablet Take 2 mg by mouth 3 times daily. aspirin 325 MG tablet Take 81 mg by mouth daily. budesonide-formoterol (Symbicort) 80-4.5 MCG/ACT inhaler Inhale 2 puffs in the morning and 2 puffs in the evening. Rinse mouth with water after use to reduce aftertaste and incidence of candidiasis. Do not swallow.. citalopram (CeleXA) 20 MG tablet Take 40 mg by mouth. furosemide (Lasix) 40 MG tablet Take 40 mg by mouth. losartan (Cozaar) 50 MG tablet 50 mg. metFORMIN (Glucophage) 1000 MG tablet Take 1,000 mg by mouth 2 times daily. metoprolol tartrate (Lopressor) 25 MG tablet Take 25 mg by mouth daily. semaglutide (Ozempic) 4 MG/3ML solution pen-injector Semaglutide (Ozempic) 1 mg/dose (4 mg/3 mL) pen injector Active MG SC EVERY WEEK November 22, 2023 1:00am simvastatin (Zocor) 80 MG tablet Take 80 mg by mouth Nightly. terbinafine (LamISIL) 250 MG tablet Take 250 mg by mouth daily. tiotropium (Spiriva) [address] 1 capsule (18 mcg) into inhaler and inhale in the morning. 90 capsule 3 No current facility-administered medications for this visit. Allergies: No Known Allergies Physical Exam: BP Temp Pulse Resp SpO2 Physical Exam telephonic visit. Assessment and Plan: 1. Malignant neoplasm of middle lobe of right lung (HCC) Tumor may be isolated to the right middle lobe and amenable to lobectomy. May require sleeve as well. See below regarding potential mediastinal lymph node involvement. Referral placed to thoracic surgery to discuss mediastinoscopy to evaluate station 7, followed by potential lobectomy. He is a borderline surgical candidate due to COPD and morbid obesity. - [facility] [place] Cardiothoracic Surgery; Future 2. Mediastinal adenopathy Surgical referral for mediastinoscopy as above. This is likely warranted regardless of candidacy for lobectomy for definitive staging as will be needed if chemo/XRT pathway is chosen. 3. Chronic obstructive pulmonary disease, unspecified COPD type (HCC) Continue current therapy. PFTs reviewed. 4. Morbid obesity (HCC) Complicates potential surgery and likely contributes to reduced lung function as well. Follow-up: prn documented in this encounter [facility] 03-03-2024 Note Formatting of this n ote might be different from the original. Discharge instructions given to pt with good understanding [facility] 03-03-2024 Note Formatting of this n ote might be different from the original. Discharge instructions given to pt with good understanding [facility] 03-03-2024 Miscellaneous Notes Discharge instructions [facility] pt with good [facility] Name: Aleks Costello Procedure Date: 03/03/2024 12:45 PM Gender: Male Date of : 1950 Age: 73 Admit Type: Outpatient Note Status: Finalized Attending MD: Marcos Padilla MD, [id number] Procedure: Bronchoscopy Indications: Right middle lobe mass Findings: Electromagnetic navigation bronchoscopy utilizing the [employer] system was performed. A pre-procedure CT scan was used for planning purposes. A virtual bronchoscopic image was generated using the planning software. The target in the right middle lobe was marked. A mass 3 cm in size was found and a pathway was created. After a complete airway exam, the locatable guide/extended working channel was inserted. The navigation phase was then begun to locate the target lesion(s). The locatable guide was removed from the extended working channel. A transbronchial needle aspiration of a mass was performed in the right middle lobe using a fine needle and sent for routine cytology. The procedure was guided by fluoroscopy. Transbronchial needle aspiration technique was selected because the sampling site was not visible endoscopically. One sample was obtained. A transbronchial biopsy of a mass was performed in the right middle lobe using forceps and sent for histopathology examination. The procedure was guided by fluoroscopy. Transbronchial biopsy technique was selected because the sampling site was not visible endoscopically. Seven biopsy passes were performed. One biopsy sample was obtained. Fluoroscopy guided transbronchial brushings of a mass were obtained in the right middle lobe with a cytology brush and sent for routine cytology. One sample was obtained. Transbronchial brushing technique was selected because the sampling site was not visible endoscopically. The bronchoscope was advanced until wedged at the desired location for bronchoalveolar lavage. BAL was performed in the right middle lobe of the lung and sent for routine cytology and bacterial, AFB and fungal analysis. 80 mL of fluid were instilled. 40 mL were returned. The return was blood-tinged and cellular. There were no mucoid plugs in the return fluid. An endobronchial ultrasound endoscope was utilized in order to assist with fine needle aspiration in the left and right paratracheal and subcarinal areas, in the right hilum and in the left hilum. Transbronchial needle aspirations were performed in the right paratracheal area, in the subcarinal area, in the right hilum and in the left hilum using a [employer] Expect 25 gauge needle and sent for routine cytology. The procedure was guided by ultrasound. The sampling device penetrated the full thickness of the bronchial wall in order to reach the sampling site. Four samples were obtained. Impression: - Right middle lobe mass - Electromagnetic navigation bronchoscopy was performed. - A transbronchial needle aspiration was performed. - Transbronchial lung biopsies were performed. - Transbronchial brushings were obtained. - Bronchoalveolar lavage was performed. - Endobronchial ultrasound was performed. - A transbronchial needle aspiration was performed. Recommendation: - Await BAL, biopsy, brushing, culture and cytology results. - Chest X-ray post-procedure. Referring MD: Fortino Cross DO Medicines: General Anesthesia Procedure: Pre-Anesthesia Assessment: - A History and Physical has been performed. The patient's medications, allergies and sensitivities have been reviewed. - ASA Grade Assessment: II - A patient with mild systemic disease. - The anesthesia plan was to use general anesthesia. After I obtained informed consent, the scope was passed under direct vision. Throughout the procedure, the patient's blood pressure, pulse, and oxygen saturations were monitored continuously. The Endoscope was introduced through the mouth, via the endotracheal tube (the patient was intubated for the procedure) and advanced to the tracheobronchial tree of both lungs. The Bronchoscope was introduced through the mouth, via the endotracheal tube (the patient was intubated for the procedure) and advanced to the tracheobronchial tree of both lungs. The procedure was accomplished without difficulty. The patient tolerated the procedure well. Complications: No immediate complications. Estimated blood loss: Minimal Procedure Code(s): --- Professional --- 17828, Bronchoscopy, rigid or flexible, including fluoroscopic guidance, when performed; with transbronchial needle aspiration biopsy(s), trachea, main stem and/or lobar bronchus(i) 81205, Bronchoscopy, rigid or flexible, including fluoroscopic guidance, when performed; with transbronchial lung biopsy(s), single lobe 23827, Bronchoscopy, rigid or flexible, including fluoroscopic guidance, when performed; with bronchial alveolar lavage 49306, Bronchoscopy, rigid or flexible, including fluoroscopic guidance, when performed; with brushing or protected brushings 06278, Bronchoscopy, rigid or flexible, including fluoroscopic guidance, when performed; with computer-assisted, image-guided navigation (List separately in addition to code for primary procedure[s]) 90470, Bronchoscopy, rigid or flexible, including fluoroscopic guidance, when performed; with transendoscopic endobronchial ultrasound (EBUS) during bronchoscopic diagnostic or therapeutic intervention(s) for peripheral lesion(s) (List separately in addition to code for primary procedure[s]) Diagnosis Code(s): --- Professional --- R91.8, Other nonspecific abnormal finding of lung field CPT copyright 2021 [employer]. All rights reserved. The codes documented in this report are preliminary and upon shoe repair supervisor review may be revised to meet current compliance requirements. Attending Participation: I personally performed the entire procedure. Marcos Padilla MD 03/03/2024 2:26:27 PM This report has been signed electronically. Number of Addenda: 0 Note Initiated On: 03/03/2024 12:45 PM documented in this encounter [facility] 03-03-2024 Note Patient: René Holman er Procedure Summary Date: 03/03/24 Room / Location: [place] [address] / [facility] Gastroenterology Anesthesia Start: 1254 Anesthesia Stop: 1428 Procedures: ELECTROMAGNETIC NAVIGATIONAL BRONCHOSCOPY WITH X-RAY ENDOBRONCHIAL ULTRASOUND BRONCHOSCOPY Diagnosis: Lung mass Lymphadenopathy Providers: Marcos Padilla MD Responsible Provider: Marcos Garrett MD Anesthesia Type: general ASA Status: 3 Anesthesia Type: general Vitals Value Taken Time BP 152/75 03/03/24 1438 Temp 36.2 ?C (97.2 ?F) 03/03/24 1437 Pulse 87 03/03/24 1437 Resp 14 03/03/24 1437 SpO2 93 % 03/03/24 1437 Anesthesia Post Evaluation Patient location during evaluation: PACU Patient participation: complete - patient participated Level of consciousness: awake and alert Pain management: satisfactory to patient Airway patency: patent Dental Injury: no Cardiovascular status: acceptable, blood pressure returned to baseline and hemodynamically stable Respiratory status: acceptable and spontaneous ventilation Hydration status: euvolemic Nausea/Vomiting: controlled No notable events documented. Patient can be discharged once all PACU criteria has been met. [facility] 03-03-2024 Note Patient: René Holman er Procedure Summary Date: 03/03/24 Room / Location: [address] Gastroenterology Anesthesia Start: 1253 Anesthesia Stop: 1428 Procedures: ELECTROMAGNETIC NAVIGATIONAL BRONCHOSCOPY WITH X-RAY ENDOBRONCHIAL ULTRASOUND BRONCHOSCOPY Diagnosis: Lung mass Lymphadenopathy Providers: Marcos Padilla MD Responsible Provider: Marcos Garrett MD Anesthesia Type: general ASA Status: 3 Anesthesia Type: general Vitals Value Taken Time BP 152/75 03/03/24 1437 Temp 36.2 ?C (97.2 ?F) 03/03/24 1437 Pulse 87 03/03/24 1437 Resp 14 03/03/24 1437 SpO2 93 % 03/03/24 1437 Anesthesia Post Evaluation Patient location during evaluation: PACU Patient participation: complete - patient participated Level of consciousness: awake and alert Pain management: satisfactory to patient Multimodal analgesia pain management approach Airway patency: patent Two or more strategies used to mitigate risk of obstructive sleep apnea Cardiovascular status: acceptable and hemodynamically stable Respiratory status: acceptable Hydration status: acceptable No notable events documented. MIPS #430 PONV Patient received an inhalational anesthetic (4554F) MIPS # 424 Perioperative Temperature Management Anesthesia time was 60 minutes or longer (4255F) MIPS #477 Multimodal Pain Management Not emergent case MIPS #404 Anesthesiology Smoking Abstinence The patient is not a current smoker (e.g. cigarette, cigar, pipe, e-cigarette/vaping/marijuana) If no stop here (XX404) MIPS #463 PEDIATRIC Prevention of Post Operative Vomiting (POV)- Combination Therapy Inhalational anesthetic were not used (G9955) I completed my handoff to the receiving clinician during which we: 1. Identified the patient 2. Identified the responsible provider 3. Reviewed the pertinent medical history 4. Discussed the surgical course 5. Reviewed intra-op anesthesia management and issues during anesthesia 6. Set expectations for post-procedure period 7. Allowed opportunity for questions and acknowledgement of understanding. [facility] 03-03-2024 Nurse Note Hand off to Damaris in PACU [facility] 03-03-2024 Nurse Note Hand off to Damaris in PACU documented in this encounter [facility] 03-03-2024 Note Airway Date/Time: 03/03/2024 1:00 PM Urgency: scheduled Airway not difficult General Information and Staff Patient location during procedure: Procedural Resident/DOPE WEIGH OPERATOR: Lj Dixon APRN - DOPE WEIGH OPERATOR Performed: DOPE WEIGH OPERATOR Indications and Patient Condition Indications for airway management: anesthesia and airway protection Sedation level: Asleep Preoxygenated: yes Patient position: sniffing MILS maintained throughout Mask difficulty assessment: 2 - vent by mask + OA or adjuvant +/- NMBA Final Airway Details Final airway type: endotracheal airway Successful airway: ETT Cuffed: yes Successful intubation technique: direct laryngoscopy Blade: Radha Blade size: #3 ETT size (mm): 9.0 Cormack-Lehane Classification: grade I - full view of glottis Placement verified by: chest auscultation, bronchoscopy and capnometry Measured from: lips ETT to lips (cm): 22 Number of attempts at approach: 1 Ventilation between attempts: [facility] 03-03-2024 Note Formatting of this n ote might be different from the original. [facility] Name: Aleks Costello Procedure Date: 03/03/2024 12:45 PM Gender: Male Date of : 1950 Age: 73 Admit Type: Outpatient Note Status: Finalized Attending MD: Marcos Padilla MD, [id number] Procedure: Bronchoscopy Indications: Right middle lobe mass Findings: Electromagnetic navigation bronchoscopy utilizing the [employer] system was performed. A pre-procedure CT scan was used for planning purposes. A virtual bronchoscopic image was generated using the planning software. The target in the right middle lobe was marked. A mass 3 cm in size was found and a pathway was created. After a complete airway exam, the locatable guide/extended working channel was inserted. The navigation phase was then begun to locate the target lesion(s). The locatable guide was removed from the extended working channel. A transbronchial needle aspiration of a mass was performed in the right middle lobe using a fine needle and sent for routine cytology. The procedure was guided by fluoroscopy. Transbronchial needle aspiration technique was selected because the sampling site was not visible endoscopically. One sample was obtained. A transbronchial biopsy of a mass was performed in the right middle lobe using forceps and sent for histopathology examination. The procedure was guided by fluoroscopy. Transbronchial biopsy technique was selected because the sampling site was not visible endoscopically. Seven biopsy passes were performed. One biopsy sample was obtained. Fluoroscopy guided transbronchial brushings of a mass were obtained in the right middle lobe with a cytology brush and sent for routine cytology. One sample was obtained. Transbronchial brushing technique was selected because the sampling site was not visible endoscopically. The bronchoscope was advanced until wedged at the desired location for bronchoalveolar lavage. BAL was performed in the right middle lobe of the lung and sent for routine cytology and bacterial, AFB and fungal analysis. 80 mL of fluid were instilled. 40 mL were returned. The return was blood-tinged and cellular. There were no mucoid plugs in the return fluid. An endobronchial ultrasound endoscope was utilized in order to assist with fine needle aspiration in the left and right paratracheal and subcarinal areas, in the right hilum and in the left hilum. Transbronchial needle aspirations were performed in the right paratracheal area, in the subcarinal area, in the right hilum and in the left hilum using a [employer] Expect 25 gauge needle and sent for routine cytology. The procedure was guided by ultrasound. The sampling device penetrated the full thickness of the bronchial wall in order to reach the sampling site. Four samples were obtained. Impression: - Right middle lobe mass - Electromagnetic navigation bronchoscopy was performed. - A transbronchial needle aspiration was performed. - Transbronchial lung biopsies were performed. - Transbronchial brushings were obtained. - Bronchoalveolar lavage was performed. - Endobronchial ultrasound was performed. - A transbronchial needle aspiration was performed. Recommendation: - Await BAL, biopsy, brushing, culture and cytology results. - Chest X-ray post-procedure. Referring MD: Fortino Cross DO Medicines: General Anesthesia Procedure: Pre-Anesthesia Assessment: - A History and Physical has been performed. The patient's medications, allergies and sensitivities have been reviewed. - ASA Grade Assessment: II - A patient with mild systemic disease. - The anesthesia plan was to use general anesthesia. After I obtained informed consent, the scope was passed under direct vision. Throughout the procedure, the patient's blood pressure, pulse, and oxygen saturations were monitored continuously. The Endoscope was introduced through the mouth, via the endotracheal tube (the patient was intubated for the procedure) and advanced to the tracheobronchial tree of both lungs. The Bronchoscope was introduced through the mouth, via the endotracheal tube (the patient was intubated for the procedure) and advanced to the tracheobronchial tree of both lungs. The procedure was accomplished without difficulty. The patient tolerated the procedure well. Complications: No immediate complications. Estimated blood loss: Minimal Procedure Code(s): --- Professional --- 52082, Bronchoscopy, rigid or flexible, including fluoroscopic guidance, when performed; with transbronchial needle aspiration biopsy(s), trachea, main stem and/or lobar bronchus(i) 98928, Bronchoscopy, rigid or flexible, including fluoroscopic guidance, when performed; with transbronchial lung biopsy(s), single lobe 45721, Bronchoscopy, rigid or flexible, including fluoroscopic guidance, when performed; with bronchial alveolar lavage 67576, Bronchoscopy, rigid or flexible, including fluoroscopic guidance, when performed; with brushing or protected brushings 69268, Bronchoscopy, rigid or flexible, including fluoroscopic guidance, when performed; with computer-assisted, image-guided navigation (List separately in addition to code for primary procedure[s]) 84002, Bronchoscopy, rigid or flexible, including fluoroscopic guidance, when performed; with transendoscopic endobronchial ultrasound (EBUS) during bronchoscopic diagnostic or therapeutic intervention(s) for peripheral lesion(s) (List separately in addition to code for primary procedure[s]) Diagnosis Code(s): --- Professional --- R91.8, Other nonspecific abnormal finding of lung field CPT copyright 2021 [employer]. All rights reserved. The codes documented in this report are preliminary and upon shoe repair supervisor review may be revised to meet current compliance requirements. Attending Participation: I personally performed the entire procedure. Marcos Padilla MD 03/03/2024 2:26:27 PM This report has been signed electronically. Number of Addenda: 0 Note Initiated On: 03/03/2024 12:45 PM [facility] [place] 03-03-2024 Note Formatting of this n ote might be different from the original. [facility] Patient Name: Aleks Costello Procedure Date: 03/03/2024 12:45 PM Gender: Male Date of : 1950 Age: 73 Admit Type: Outpatient Note Status: Finalized Attending MD: Marcos Padilla MD, [id number] Procedure: Bronchoscopy Indications: Right middle lobe mass Findings: Electromagnetic navigation bronchoscopy utilizing the [employer] system was performed. A pre-procedure CT scan was used for planning purposes. A virtual bronchoscopic image was generated using the planning software. The target in the right middle lobe was marked. A mass 3 cm in size was found and a pathway was created. After a complete airway exam, the locatable guide/extended working channel was inserted. The navigation phase was then begun to locate the target lesion(s). The locatable guide was removed from the extended working channel. A transbronchial needle aspiration of a mass was performed in the right middle lobe using a fine needle and sent for routine cytology. The procedure was guided by fluoroscopy. Transbronchial needle aspiration technique was selected because the sampling site was not visible endoscopically. One sample was obtained. A transbronchial biopsy of a mass was performed in the right middle lobe using forceps and sent for histopathology examination. The procedure was guided by fluoroscopy. Transbronchial biopsy technique was selected because the sampling site was not visible endoscopically. Seven biopsy passes were performed. One biopsy sample was obtained. Fluoroscopy guided transbronchial brushings of a mass were obtained in the right middle lobe with a cytology brush and sent for routine cytology. One sample was obtained. Transbronchial brushing technique was selected because the sampling site was not visible endoscopically. The bronchoscope was advanced until wedged at the desired location for bronchoalveolar lavage. BAL was performed in the right middle lobe of the lung and sent for routine cytology and bacterial, AFB and fungal analysis. 80 mL of fluid were instilled. 40 mL were returned. The return was blood-tinged and cellular. There were no mucoid plugs in the return fluid. An endobronchial ultrasound endoscope was utilized in order to assist with fine needle aspiration in the left and right paratracheal and subcarinal areas, in the right hilum and in the left hilum. Transbronchial needle aspirations were performed in the right paratracheal area, in the subcarinal area, in the right hilum and in the left hilum using a [employer] Expect 25 gauge needle and sent for routine cytology. The procedure was guided by ultrasound. The sampling device penetrated the full thickness of the bronchial wall in order to reach the sampling site. Four samples were obtained. Impression: - Right middle lobe mass - Electromagnetic navigation bronchoscopy was performed. - A transbronchial needle aspiration was performed. - Transbronchial lung biopsies were performed. - Transbronchial brushings were obtained. - Bronchoalveolar lavage was performed. - Endobronchial ultrasound was performed. - A transbronchial needle aspiration was performed. Recommendation: - Await BAL, biopsy, brushing, culture and cytology results. - Chest X-ray post-procedure. Referring MD: Fortino Cross DO Medicines: General Anesthesia Procedure: Pre-Anesthesia Assessment: - A History and Physical has been performed. The patient's medications, allergies and sensitivities have been reviewed. - ASA Grade Assessment: II - A patient with mild systemic disease. - The anesthesia plan was to use general anesthesia. After I obtained informed consent, the scope was passed under direct vision. Throughout the procedure, the patient's blood pressure, pulse, and oxygen saturations were monitored continuously. The Endoscope was introduced through the mouth, via the endotracheal tube (the patient was intubated for the procedure) and advanced to the tracheobronchial tree of both lungs. The Bronchoscope was introduced through the mouth, via the endotracheal tube (the patient was intubated for the procedure) and advanced to the tracheobronchial tree of both lungs. The procedure was accomplished without difficulty. The patient tolerated the procedure well. Complications: No immediate complications. Estimated blood loss: Minimal Procedure Code(s): --- Professional --- 13265, Bronchoscopy, rigid or flexible, including fluoroscopic guidance, when performed; with transbronchial needle aspiration biopsy(s), trachea, main stem and/or lobar bronchus(i) 19685, Bronchoscopy, rigid or flexible, including fluoroscopic guidance, when performed; with transbronchial lung biopsy(s), single lobe 61804, Bronchoscopy, rigid or flexible, including fluoroscopic guidance, when performed; with bronchial alveolar lavage 45956, Bronchoscopy, rigid or flexible, including fluoroscopic guidance, when performed; with brushing or protected brushings 97624, Bronchoscopy, rigid or flexible, including fluoroscopic guidance, when performed; with computer-assisted, image-guided navigation (List separately in addition to code for primary procedure[s]) 42664, Bronchoscopy, rigid or flexible, including fluoroscopic guidance, when performed; with transendoscopic endobronchial ultrasound (EBUS) during bronchoscopic diagnostic or therapeutic intervention(s) for peripheral lesion(s) (List separately in addition to code for primary procedure[s]) Diagnosis Code(s): --- Professional --- R91.8, Other nonspecific abnormal finding of lung field CPT copyright 2021 [employer]. All rights reserved. The codes documented in this report are preliminary and upon shoe repair supervisor review may be revised to meet current compliance requirements. Attending Participation: I personally performed the entire procedure. Marcos Padilla MD 03/03/2024 2:26:27 PM This report has been signed electronically. Number of Addenda: 0 Note Initiated On: 03/03/2024 12:45 PM [facility] [place] 03-03-2024 Note [facility] Patient Name: Aleks Costello Procedure Date: 03/03/2024 12:45 PM Gender: Male Date of : 1950 Age: 73 Admit Type: Outpatient Note Status: Finalized Attending MD: Marcos Padilla MD, [id number] Procedure: Bronchoscopy Indications: Right middle lobe mass Findings: Electromagnetic navigation bronchoscopy utilizing the [employer] system was performed. A pre-procedure CT scan was used for planning purposes. A virtual bronchoscopic image was generated using the planning software. The target in the right middle lobe was marked. A mass 3 cm in size was found and a pathway was created. After a complete airway exam, the locatable guide/extended working channel was inserted. The navigation phase was then begun to locate the target lesion(s). The locatable guide was removed from the extended working channel. A transbronchial needle aspiration of a mass was performed in the right middle lobe using a fine needle and sent for routine cytology. The procedure was guided by fluoroscopy. Transbronchial needle aspiration technique was selected because the sampling site was not visible endoscopically. One sample was obtained. A transbronchial biopsy of a mass was performed in the right middle lobe using forceps and sent for histopathology examination. The procedure was guided by fluoroscopy. Transbronchial biopsy technique was selected because the sampling site was not visible endoscopically. Seven biopsy passes were performed. One biopsy sample was obtained. Fluoroscopy guided transbronchial brushings of a mass were obtained in the right middle lobe with a cytology brush and sent for routine cytology. One sample was obtained. Transbronchial brushing technique was selected because the sampling site was not visible endoscopically. The bronchoscope was advanced until wedged at the desired location for bronchoalveolar lavage. BAL was performed in the right middle lobe of the lung and sent for routine cytology and bacterial, AFB and fungal analysis. 80 mL of fluid were instilled. 40 mL were returned. The return was blood-tinged and cellular. There were no mucoid plugs in the return fluid. An endobronchial ultrasound endoscope was utilized in order to assist with fine needle aspiration in the left and right paratracheal and subcarinal areas, in the right hilum and in the left hilum. Transbronchial needle aspirations were performed in the right paratracheal area, in the subcarinal area, in the right hilum and in the left hilum using a [employer] Expect 25 gauge needle and sent for routine cytology. The procedure was guided by ultrasound. The sampling device penetrated the full thickness of the bronchial wall in order to reach the sampling site. Four samples were obtained. Impression: - Right middle lobe mass - Electromagnetic navigation bronchoscopy was performed. - A transbronchial needle aspiration was performed. - Transbronchial lung biopsies were performed. - Transbronchial brushings were obtained. - Bronchoalveolar lavage was performed. - Endobronchial ultrasound was performed. - A transbronchial needle aspiration was performed. Recommendation: - Await BAL, biopsy, brushing, culture and cytology results. - Chest X-ray post-procedure. Referring MD: Fortino Cross DO Medicines: General Anesthesia Procedure: Pre-Anesthesia Assessment: - A History and Physical has been performed. The patient's medications, allergies and sensitivities have been reviewed. - ASA Grade Assessment: II - A patient with mild systemic disease. - The anesthesia plan was to use general anesthesia. After I obtained informed consent, the scope was passed under direct vision. Throughout the procedure, the patient's blood pressure, pulse, and oxygen saturations were monitored continuously. The Endoscope was introduced through the mouth, via the endotracheal tube (the patient was intubated for the procedure) and advanced to the tracheobronchial tree of both lungs. The Bronchoscope was introduced through the mouth, via the endotracheal tube (the patient was intubated for the procedure) and advanced to the tracheobronchial tree of both lungs. The procedure was accomplished without difficulty. The patient tolerated the procedure well. Complications: No immediate complications. Estimated blood loss: Minimal Procedure Code(s): --- Professional --- 24600, Bronchoscopy, rigid or flexible, including fluoroscopic guidance, when performed; with transbronchial needle aspiration biopsy(s), trachea, main stem and/or lobar bronchus(i) 13338, Bronchoscopy, rigid or flexible, including fluoroscopic guidance, when performed; with transbronchial lung biopsy(s), single lobe 61093, Bronchoscopy, rigid or flexible, including fluoroscopic guidance, when performed; with bronchial alveolar lavage 71320, Bronchoscopy, (more content not included)... [facility] 03-03-2024 Note Patient: René Holman er Procedure Information Date/Time: 03/03/24 1300 Procedures: ELECTROMAGNETIC NAVIGATIONAL BRONCHOSCOPY WITH X-RAY - Rad, Path, ENB REp, Total time: 120 minutes ENDOBRONCHIAL ULTRASOUND BRONCHOSCOPY Location: [place] [address] / [facility] Gastroenterology Providers: Marcso Padilla MD Relevant Problems No relevant active problems Past Medical History: Past Medical History: No date: Diabetes mellitus (HCC) Past Surgical History: No past surgical history on file. Social History: TOBACCO: reports that he quit smoking about 15 years ago. His smoking use included cigarettes. He has a 60 pack-year smoking history. He has quit using smokeless tobacco. ETOH: reports current alcohol use. Social History Substance and Sexual Activity Drug Use Not on file Family History: No family history on file. Screening: unknown Clinical information reviewed: Tobacco Allergies Meds Med Hx Surg Hx Fam Hx Soc Hx Physical Exam Airway Mallampati: III Cardiovascular Dental (+) edentulous Pulmonary Abdominal Anesthesia Plan patient is NPO appropriate Any family history or previous problems with anesthesia no ASA 3 general Any family history or previous problems with anesthesia no The patient is not a current smoker. Anesthetic plan and risks discussed with patient. Use of blood products discussed with who consented to blood products. MALI Screening Labs: No results found for: WBC , HGB , HCT , MCV , PLT No results found for: NA , K , CL , CO2 , BUN , CREATININE , GLUCOSE , CALCIUM , PROT , BILIRUBINFL , ALKPHOS , AST , ALT , EGFR , GLOB No echocardiogram results found for the past 14 days No results found for this or any previous visit. [facility] 03-03-2024 History and physical note Chief Complaint: lung mass History of Present Illness: HPI 73 y/o male here for bronchoscopy to evaluate a 3 cm RML lung mass and associated adenopathy. Past Medical History: Past Medical History: Diagnosis Date Diabetes mellitus (HCC) Social History: Social History Socioeconomic History Marital status: Tobacco Use Smoking status: Former Packs/day: 1.50 Years: 40.00 Additional pack years: 0.00 Total pack years: 60.00 Types: Cigarettes Quit date: 2008 Years since quittin.4 Smokeless tobacco: Former Substance and Sexual Activity Alcohol use: Yes Comment: occ Family History: No family history on file. ROS: Review of Systems Respiratory: Positive for shortness of breath. All other systems reviewed and are negative. Medications: Current Facility-Administered Medications Medication Dose Route Frequency Provider Last Rate Last Admin sodium chloride 0.9 % infusion 5-250 mL/hr IntraVENous PRN Marcos Padilla MD 20 mL/hr at 03/03/24 1208 20 mL/hr at 03/03/24 1208 sodium chloride 0.9% (NS) flush 10 mL 10 mL IntraVENous 2 times per day Marcos Padilla MD sodium chloride 0.9% (NS) flush 10 mL 10 mL IntraVENous PRN Marcos Padilla MD Allergies: No Known Allergies Physical Exam: BP 122/80 (03/03/24 1149) Temp 36.1 C (97 F) (03/03/24 1149) Pulse 90 (03/03/24 1149) Resp 20 (03/03/24 1149) SpO2 94 % (03/03/24 1149) BP 122/80 Pulse 90 Temp 36.1 C (97 F) (Temporal) Resp 20 SpO2 94% Physical Exam Constitutional: Appearance: He is not ill-appearing. Cardiovascular: Rate and Rhythm: Normal rate and regular rhythm. Pulmonary: Effort: Pulmonary effort is normal. Musculoskeletal: General: No swelling or tenderness. Neurological: General: No focal deficit present. Mental Status: He is alert and oriented to person, place, and time. Assessment and Plan: RML lung mass. Plan navigational bronchoscopy with sampling of RML lesion, EBUS for lymph node evaluation/sampling/staging. T [facility] 03-03-2024 Note Chief Complaint: deanne g mass History of Present Illness: HPI 73 y/o male here for bronchoscopy to evaluate a 3 cm RML lung mass and associated adenopathy. Past Medical History: Past Medical History: Diagnosis Date Diabetes mellitus (HCC) Social History: Social History Socioeconomic History Marital status: Tobacco Use Smoking status: Former Packs/day: 1.50 Years: 40.00 Additional pack years: 0.00 Total pack years: 60.00 Types: Cigarettes Quit date: 2008 Years since quittin.4 Smokeless tobacco: Former Substance and Sexual Activity Alcohol use: Yes Comment: occ Family History: No family history on file. ROS: Review of Systems Respiratory: Positive for shortness of breath. All other systems reviewed and are negative. Medications: Current Facility-Administered Medications Medication Dose Route Frequency Provider Last Rate Last Admin sodium chloride 0.9 % infusion 5-250 mL/hr IntraVENous PRN Marcos Padilla MD 20 mL/hr at 03/03/24 1208 20 mL/hr at 03/03/24 1208 sodium chloride 0.9% (NS) flush 10 mL 10 mL IntraVENous 2 times per day Marcos Padilla MD sodium chloride 0.9% (NS) flush 10 mL 10 mL IntraVENous PRN Marcos Padilla MD Allergies: No Known Allergies Physical Exam: BP 122/80 (03/03/24 1149) Temp 36.1 ?C (97 ?F) (03/03/24 1149) Pulse 90 (03/03/24 1149) Resp 20 (03/03/24 1149) SpO2 94 % (03/03/24 1149) BP 122/80 Pulse 90 Temp 36.1 ?C (97 ?F) (Temporal) Resp 20 SpO2 94% Physical Exam Constitutional: Appearance: He is not ill-appearing. Cardiovascular: Rate and Rhythm: Normal rate and regular rhythm. Pulmonary: Effort: Pulmonary effort is normal. Musculoskeletal: General: No swelling or tenderness. Neurological: General: No focal deficit present. Mental Status: He is alert and oriented to person, place, and time. Assessment and Plan: RML lung mass. Plan navigational bronchoscopy with sampling of RML lesion, EBUS for lymph node evaluation/sampling/staging. [facility] 03-03-2024 History and physical note Chief Complaint: lung mass History of Present Illness: HPI 73 y/o male here for bronchoscopy to evaluate a 3 cm RML lung mass and associated adenopathy. Past Medical History: Past Medical History: Diagnosis Date Diabetes mellitus (HCC) Social History: Social History Socioeconomic History Marital status: Tobacco Use Smoking status: Former Packs/day: 1.50 Years: 40.00 Additional pack years: 0.00 Total pack years: 60.00 Types: Cigarettes Quit date: 2008 Years since quittin.4 Smokeless tobacco: Former Substance and Sexual Activity Alcohol use: Yes Comment: occ Family History: No family history on file. ROS: Review of Systems Respiratory: Positive for shortness of breath. All other systems reviewed and are negative. Medications: Current Facility-Administered Medications Medication Dose Route Frequency Provider Last Rate Last Admin sodium chloride 0.9 % infusion 5-250 mL/hr IntraVENous PRN Marcos Padilla MD 20 mL/hr at 03/03/24 1208 20 mL/hr at 03/03/24 1208 sodium chloride 0.9% (NS) flush 10 mL 10 mL IntraVENous 2 times per day Marcos Padilla MD sodium chloride 0.9% (NS) flush 10 mL 10 mL IntraVENous PRN Marcos Padilla MD Allergies: No Known Allergies Physical Exam: BP 122/80 (03/03/24 1149) Temp 36.1 C (97 F) (03/03/24 1149) Pulse 90 (03/03/24 1149) Resp 20 (03/03/24 1149) SpO2 94 % (03/03/24 1149) BP 122/80 Pulse 90 Temp 36.1 C (97 F) (Temporal) Resp 20 SpO2 94% Physical Exam Constitutional: Appearance: He is not ill-appearing. Cardiovascular: Rate and Rhythm: Normal rate and regular rhythm. Pulmonary: Effort: Pulmonary effort is normal. Musculoskeletal: General: No swelling or tenderness. Neurological: General: No focal deficit present. Mental Status: He is alert and oriented to person, place, and time. Assessment and Plan: RML lung mass. Plan navigational bronchoscopy with sampling of RML lesion, EBUS for lymph node evaluation/sampling/staging. documented in this encounter [facility] 02-27-2024 Note Patient is undergoin g evaluation for possible lung cancer. Pulmonary function test appointment scheduled 04/16/2024, but needs done sooner. Contacted patient by phone and expedited testing to 02/28/[address] Sent secure chat message to [facility] central scheduling and they placed patient on the schedule. Spoke with patient by phone and provided all test prep. Reminded patient to arrive at least 20 minutes prior to appointment to register. He has my contact information and will call if he has additional questions. [facility] 02-27-2024 Telephone encounter Note Patient is undergoing evaluation for possible lung cancer. Pulmonary function test appointment scheduled 04/16/2024, but needs done sooner. Contacted patient by phone and expedited testing to 02/28/[address] Sent secure chat message to [facility] central scheduling and they placed patient on the schedule. Spoke with patient by phone and provided all test prep. Reminded patient to arrive at least 20 minutes prior to appointment to register. He has my contact information and will call if he has additional questions. [facility] 02-27-2024 Miscellaneous Notes Patient is undergoing evaluation for possible lung cancer. Pulmonary function test appointment scheduled 04/16/2024, but needs done sooner. Contacted patient by phone and expedited testing to 02/28/[address] Sent secure chat message to [facility] central scheduling and they placed patient on the schedule. Spoke with patient by phone and provided all test prep. Reminded patient to arrive at least 20 minutes prior to appointment to register. He has my contact information and will call if he has additional questions. documented in this encounter [facility] 02-25-2024 Telephone encounter Note Patient is active with [facility] for CPT 80812/70887. Call ref # [id number] [facility] 02-25-2024 Miscellaneous Notes Patient is active with [facility] for CPT 74756/14322. Call ref # [id number] Addended by: JAYASHREE CAMPOVERDE on: 02/25/2024 03:33 PM Modules accepted: Orders Instructions EBUS/ENB Endobronchial Ultrasound/Electro-Navigational Bronchoscopy Procedure Date: March 03, 2024 Time: 1:00 PM Arrival Time: 12:00 PM Physician: Dr. Padilla Location: [facility], Endoscopy Department, [address] [place] [address] Please arrive at the hospital registration desk 1.5 hours prior to scheduled start of procedure. Make sure you have a known responsible adult to transport you home from the hospital as you will not be permitted to drive. Your procedure will be cancelled if you do not have someone to take you home. You can only use a taxi/bus/Uber/medical waste transportation technician if you have a known responsible adult to go with you. Do not drink alcohol before or after your procedure. No smoking of any kind and no chewing tobacco six hours prior to your procedure. If you experience any fever/sick symptoms prior to procedure, please call the nurse. Bring your insurance card and photo ID with you. 8 hours prior to scheduled procedure (5:00 AM) is the cut off for solid foods or thick liquids. You may have clear liquids (black coffee or tea without creamer, water, soda, broth and any juices you can see through without pulp until 2 hours (11:00 AM) prior to your scheduled start. Any blood thinning medications like Coumadin, Warfarin, Jantoven, Effient, Eliquis, Xarelto, Pradaxa, Pletal, Plavix, Bilinta, Heparin, Lovenox and Fragmin may need to be held prior to the procedure. Contact the nurse if you take any of these medications. You will need to hold your Ozempic for 7 days prior to your procedure. Please refrain from taking any non-steroidal anti-inflammatory medications (i.e. Advil, Aleve, Ibuprofen, Motrin, Naprosyn, Naproxen, Voltaren, Diclofenac, Celebrex, Mobic, Meloxicam) for 5 days prior to procedure. Tylenol (acetaminophen) is safe to use prior to procedure. If you are diabetic, please contact your physician that manages your medications and/or insulin for any adjustments that may be needed while you are on clear liquids then fasting for the majority of the day until after your procedure. Other medications can be taken as usual up to 2 hours (11:00 AM) prior as long as you are able to tolerate them on an empty stomach. Nothing by mouth after 11:00 AM. From registration you will go to the endoscopy unit, the staff there will get you checked in and start an intravenous catheter (IV). Our Anesthesia Team will ask you some health history questions prior and will be there to monitor you for the duration of your procedure. Dr. Padilla will be available to speak with you prior to your procedure in case you have any questions. The procedure itself usually lasts about 2 hours and you will be asleep the entire time. After the procedure you will be taken to the recovery area for monitoring. The procedure is planned as outpatient, and you will be discharged the same day. Estimated time at the hospital ranges from 4-5 hours the day of the procedure. The physician will use a small, flexible scope to go through your mouth and into the lung to sample the area(s) that were discussed with you. The scope has a channel that tools are inserted in to biopsy, collect specimens and/or wash the particular area. The physician will discuss any initial findings post procedure at the hospital with you. Final results typically come back within a week and a follow up will be scheduled based on the physician's recommendation. You are scheduled for a follow up telephone appointment March 11, 2024. Dr. Padilla will call around 3:15 PM to discuss results with you. Things to look for post procedure: Fever greater than 101F Coughing up/spitting up bright red blood greater than a teaspoon Increased Shortness of breath/distress and/ or sudden onset of chest pain (call 911 and head to the nearest emergency department) You will be sent home with discharge instructions. You can eat and drink as tolerated post procedure. You may experience some fatigue, irritation of the throat, increased coughing, and/or pink-blood tinged mucus after the procedure. This is normal and be expected to last about 24-48 hours. Over the counter medications such as lozenges, cough drops, chloraseptic sprays can help these symptoms. If you have any questions, please call: [phone], Jayashree, RN Clinical Coordinator [facility] Pulmonary Medicine [address] [place] [address] St, [address] [place], [place] [id number] Last Chest CT 01/09/24 in PACS from [facility]-will review with [facility] if compatible for ENB Procedure placed on physician's outlook calendar? yes Does patient take blood thinners? No Does patient take ASA?Yes 81 mg HX bypass OK to continue Does patient take NSAIDS? No Does patient take diabetic medications? Yes - metformin Does patient take GLP1 medications? Yes Ozempic-last dose 02/21/24 patient will hold 02/28/24 dose until after procedure Does patient have Pacemaker, defibrillator, life vest, other implants? No Recent illness or covid exposure? No Chance of ? No Patient aware will need transportation home from hospital? Yes Patient instructed to bring insurance card, photo ID and mask? Yes Surgery Scheduling Patient notified of procedure date, time, prep/NPO status, arrival time, location and entrance, must have a ride, and to bring: drivers license, insurance card, mask, med list. Reviewed prep and itinerary with patient? yes Patient voices understanding? Yes Outside PET/CT images uploaded and personally reviewed. Significant FDG uptake in RML mass, particularly the medial/infrahilar portion. Plan is the same, proceed with ENB/EBUS. documented in this encounter [facility] 02-25-2024 Note Addended by: JAYASHREE JAIN on: 02/25/2024 03:33 PM Modules accepted: Orders [facility] 02-25-2024 Note Addended by: JAYASHREE JAIN on: 02/25/2024 03:33 PM Modules accepted: Orders [facility] 02-25-2024 Note Addended by: JAYASHREE JAIN on: 02/25/2024 03:33 PM Modules accepted: Orders [facility] 02-25-2024 Note Addended by: JAYASHREE JAIN on: 02/25/2024 03:33 PM Modules accepted: Orders [facility] 02-25-2024 Note Addended by: JAYASHREE JAIN on: 02/25/2024 03:33 PM Modules accepted: Orders [facility] 02-25-2024 Telephone encounter Note Instructions EBUS/ENB Endobronchial Ultrasound/Electro-Navigational Bronchoscopy Procedure Date: March 03, 2024 Time: 1:00 PM Arrival Time: 12:00 PM Physician: Dr. Padilla Location: [facility], Endoscopy Department, [address] [place] [address] Please arrive at the hospital registration desk 1.5 hours prior to scheduled start of procedure. Make sure you have a known responsible adult to transport you home from the hospital as you will not be permitted to drive. Your procedure will be cancelled if you do not have someone to take you home. You can only use a taxi/bus/Uber/medical waste transportation technician if you have a known responsible adult to go with you. Do not drink alcohol before or after your procedure. No smoking of any kind and no chewing tobacco six hours prior to your procedure. If you experience any fever/sick symptoms prior to procedure, please call the nurse. Bring your insurance card and photo ID with you. 8 hours prior to scheduled procedure (5:00 AM) is the cut off for solid foods or thick liquids. You may have clear liquids (black coffee or tea without creamer, water, soda, broth and any juices you can see through without pulp until 2 hours (11:00 AM) prior to your scheduled start. Any blood thinning medications like Coumadin, Warfarin, Jantoven, Effient, Eliquis, Xarelto, Pradaxa, Pletal, Plavix, Bilinta, Heparin, Lovenox and Fragmin may need to be held prior to the procedure. Contact the nurse if you take any of these medications. You will need to hold your Ozempic for 7 days prior to your procedure. Please refrain from taking any non-steroidal anti-inflammatory medications (i.e. Advil, Aleve, Ibuprofen, Motrin, Naprosyn, Naproxen, Voltaren, Diclofenac, Celebrex, Mobic, Meloxicam) for 5 days prior to procedure. Tylenol (acetaminophen) is safe to use prior to procedure. If you are diabetic, please contact your physician that manages your medications and/or insulin for any adjustments that may be needed while you are on clear liquids then fasting for the majority of the day until after your procedure. Other medications can be taken as usual up to 2 hours (11:00 AM) prior as long as you are able to tolerate them on an empty stomach. Nothing by mouth after 11:00 AM. From registration you will go to the endoscopy unit, the staff there will get you checked in and start an intravenous catheter (IV). Our Anesthesia Team will ask you some health history questions prior and will be there to monitor you for the duration of your procedure. Dr. Padilla will be available to speak with you prior to your procedure in case you have any questions. The procedure itself usually lasts about 2 hours and you will be asleep the entire time. After the procedure you will be taken to the recovery area for monitoring. The procedure is planned as outpatient, and you will be discharged the same day. Estimated time at the hospital ranges from 4-5 hours the day of the procedure. The physician will use a small, flexible scope to go through your mouth and into the lung to sample the area(s) that were discussed with you. The scope has a channel that tools are inserted in to biopsy, collect specimens and/or wash the particular area. The physician will discuss any initial findings post procedure at the hospital with you. Final results typically come back within a week and a follow up will be scheduled based on the physician's recommendation. You are scheduled for a follow up telephone appointment March 11, 2024. Dr. Padilla will call around 3:15 PM to discuss results with you. Things to look for post procedure: Fever greater than 101F Coughing up/spitting up bright red blood greater than a teaspoon Increased Shortness of breath/distress and/ or sudden onset of chest pain (call 911 and head to the nearest emergency department) You will be sent home with discharge instructions. You can eat and drink as tolerated post procedure. You may experience some fatigue, irritation of the throat, increased coughing, and/or pink-blood tinged mucus after the procedure. This is normal and be expected to last about 24-48 hours. Over the counter medications such as lozenges, cough drops, chloraseptic sprays can help these symptoms. If you have any questions, please call: [phone] RN Clinical Coordinator [facility] Pulmonary Medicine [address] [place] [address], [address] [place] [phone] Last Chest CT 01/09/24 in PACS from [facility]-will review with [facility] if compatible for ENB Procedure placed on physician's outlook calendar? yes Does patient take blood thinners? No Does patient take ASA?Yes 81 mg HX bypass OK to continue Does patient take NSAIDS? No Does patient take diabetic medications? Yes - metformin Does patient take GLP1 medications? Yes Ozempic-last dose 02/21/24 patient will hold 02/28/24 dose until after procedure Does patient have Pacemaker, defibrillator, life vest, other implants? No Recent illness or covid exposure? No Chance of ? No Patient aware will need transportation home from hospital? Yes Patient instructed to bring insurance card, photo ID and mask? Yes Surgery Scheduling Patient notified of procedure date, time, prep/NPO status, arrival time, location and entrance, must have a ride, and to bring: drivers license, insurance card, mask, med list. Reviewed prep and itinerary with patient? yes Patient voices understanding? Yes [facility] 02-25-2024 Telephone encounter Note Outside PET/CT images uploaded and personally reviewed. Significant FDG uptake in RML mass, particularly the medial/infrahilar portion. Plan is the same, proceed with ENB/EBUS. [facility] [employer] Work Phone: 02-22-2024 Telephone encounter Note Patient was evaluated in the lung nodule clinic today with Dr. Quinonez. Prior lung screening imaging and CT chest imaging from outside facilities is available for review in PACS. Sent request to [facility] for electronic push of recent 01/29/2024 PET scan. Awaiting bronchoscopy scheduling. [facility] 02-22-2024 Miscellaneous Notes Patient was evaluated in the lung nodule clinic today with Dr. Quinonez. Prior lung screening imaging and CT chest imaging from outside facilities is available for review in PACS. Sent request to [facility] for electronic push of recent 01/29/2024 PET scan. Awaiting bronchoscopy scheduling. documented in this encounter [facility] 02-22-2024 History of Present illness Narrative Images from the original note were not included. [facility] Pulmonary Medicine [address] [place] [address], [address] [place] [phone] Name: Aleks Costello : 1950 Age: 73 y.o. Visit Date: 02/22/24 Reason for Visit: lung mass History of Present Illness: Aleks Costello is a very pleasant 73 y.o. male presenting for evaluation for lung mass. Patient has a past medical history of: - COPD, emphysema - tobacco abuse (60 pack-year, quit 2008) - CAD s/p CABG and PCI on ASA 81 mg - MALI on CPAP - morbid obesity Patient is new to the [facility] pulmonary clinic, patient is already established with pulmonary medicine in [place], follows with Dr. Dajuan Victor. He was referred for abnormal CTA chest results on 01/09/24, which showed a spiculated 3.5 x 3.2 cm soft tissue density in the RML with adjacent right hilar lymphadenopathy, concerning for pulmonary malignancy. Subsequent PET/CT at [place] on 5/7/24 increased FDG uptake in this right infrahilar area with SUV max 6.8. Patient feels well today. He endorses chronic dyspnea with exertion (mMRC 2) and associated dry cough. He has sleep apnea well controlled on CPAP, does not know pressure settings, he sleeps well. He denies fever, chills, chest pain, wheezing, orthopnea, hemoptysis, abdominal pain, nausea, vomiting, diarrhea, constipation, lightheadedness, dizziness, dysuria, hematuria, melena, hematochezia, leg pain, leg swelling. He uses Symbicort 2 puffs BID and Spiriva handihaler. He has been on these inhalers since 2009. He rarely uses RPN albuterol. He is hemodynamically stable and in no acute distress. 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 Family History: No family history on file. No family status information on file. Social History: reports that he quit smoking about 15 years ago. His smoking use included cigarettes. He has quit using smokeless tobacco. He reports current alcohol use. Current Outpatient Medications Medication Instructions albuterol (PROVENTIL) 2 mg, Oral, 3 times daily aspirin 81 mg, Oral, Daily budesonide-formoterol (Symbicort) 80-4.5 MCG/ACT inhaler 2 puffs, Inhalation, 2 times daily, Rinse mouth with water after use to reduce aftertaste and incidence of candidiasis. Do not swallow. citalopram (CELEXA) 40 mg, Oral furosemide (LASIX) 40 mg, Oral losartan (COZAAR) 50 mg metFORMIN (GLUCOPHAGE) 1,000 mg, Oral, 2 times daily metoprolol tartrate (LOPRESSOR) 25 mg, Oral, Daily semaglutide (Ozempic) 4 MG/3ML solution pen-injector Semaglutide (Ozempic) 1 mg/dose (4 mg/3 mL) pen injector Active MG SC EVERY WEEK November 22, 2023 1:00am simvastatin (ZOCOR) 80 mg, Oral, Nightly terbinafine (LAMISIL) 250 mg, Oral, Daily tiotropium (Spiriva) 18 MCG inhalation capsule 18 capsules, Inhalation, Daily No Known Allergies Review of Symptoms: 10 systems reviewed and negative except as mentioned above. Physical Exam: Vitals: Blood pressure 124/70, pulse 94, resp. rate 18, height 5' 10 (1.778 m), weight (!) 344 lb (156 kg), SpO2 98%. General: AAOx3, NAD, pt is comfortable HEENT: normocephalic, no obvious trauma, moist oral and nasal mucosa, conjunctivae/corneas clear, upper dentures noted, Mallampati 2 RESPIRATORY: clear to auscultation bilaterally, no wheezing, no crackles CARDIOVASCULAR: +S1/S2, RRR, no murmurs, no rubs, no gallops, no obvious JVD, peripheral pulses palpable in UE and LE GASTROINTESTINAL: soft, nondistended, nontender, normal bowel sounds MUSCULOSKELETAL: no obvious deformities noted, no edema in b/l LE SKIN: warm and dry, intact, without obvious lesions NEUROLOGICAL: no gross motor deficits PSYCHIATRIC: appropriate to circumstances LYMPHATIC: no palpable lymphadenopathy Data Review: Labs No results for input(s): WBC , HGB , HCT in the last 72 hours. No lab exists for component: PLAT No results for input(s): NA , K , CL , CO2 , GLUCOSE , BUN , CREATININE , EGFR , CALCIUM , ALBUMIN , ALK , AST , ALT , PTT , INR in the last 72 hours. No lab exists for component: TP , TBILI PFT (05/29/18) - [place] Absolute Value % Predicted Z-score FEV1/FVC 55% FEV1 2.02 58 FVC 3.64 78 TLC 8.10 121 RV/TLC 60 (ULN 51.4) DLCO 19.6 59 My personal interpretation: Spirometry shows moderate airflow obstruction with significant bronchodilator response. Lung volumes show hyperinflation. Gas transfer is moderately reduced by old criteria. PET/CT (01/29/24) - [place] [facility] increase in radiopharmaceutical concentration identified in the right infrahilar region fulfills quantitative criteria for neoplastic transformation with single-point technique. Histopathologic analysis is recommended. No other definitive scintigraphic abnormalities are observed. There is no scintigraphic evidence of distant metastatic disease. CTA chest (01/09/24) - [facility] IMPRESSION: 1. No evidence of pulmonary embolism to the level of the segmental pulmonary arteries. 2. Right middle lobe soft tissue masslike consolidation with nearby right hilar adenopathy. Findings are concerning for malignancy or less likely pneumonia. 3. Emphysema. 4. Cholelithiasis without secondary evidence of cholecystitis. I have personally reviewed all pertinent labs and imaging. Assessment & Plan: RML mass - outside CTA chest on 01/09/24 showed a spiculated 3.5 x 3.2 cm soft tissue density in the RML with adjacent right hilar lymphadenopathy, concerning for primary pulmonary malignancy - subsequent PET/CT at [place] on 01/29/24 increased FDG uptake in this right infrahilar area with SUV max 6.8, I do not have these images for personal review yet, request placed - prior CT lung screens on 09/12/23, 08/25/22, 08/31/21 actually show this soft tissue density in the RML but gradually increasing in size over time - discussed risks/benefits of ENB/EBUS, patient agreeable, he would like to have it done in [place] because it is closer to home - if a formal diagnosis of lung cancer is established, he would like to receive treatment in [place] - patient was instructed to hold ASA 81 by another provider, since he has a coronary stent, I recommended patient continue this daily, OK to perform ENB/EBUS on aspirin, confirmed he is not on any other blood thinners COPD, emphysema - follows with Dr. Dajuan Victor in [place] - continue maximum inhalation therapy with Symbicort/Spiriva - continue PRN albuterol - prior PFT's from 05/29/18 reviewed, spirometry shows moderate airflow obstruction with significant bronchodilator response, lung volumes show hyperinflation, gas transfer is moderately reduced by old criteria - obtain repeat PFT's MALI - reportedly on CPAP, he does not know pressure settings - he states symptoms are well controlled - continue CPAP nightly Ace Quinonez MD Pulmonary & Critical Care Medicine [facility] documented in this encounter [facility] 02-22-2024 Instructions Marie Hodges MA - 02/22/2024 1:00 PM EDT YOUR APPOINTMENT TODAY WAS WITH THE [facility] LUNG NODULE [facility], COPD CLINIC, PULMONARY AND SLEEP MEDICINE OFFICE. PLEASE CALL OUR OFFICE AT [phone] IF YOU HAVE NOT RECEIVED YOUR TEST RESULTS 7 DAYS AFTER TESTING IS COMPLETED. PLEASE REMEMBER TO REQUEST REFILLS AT YOUR OFFICE VISITS. PHONE/FAX REQUESTS REQUIRE 48-72 HOURS FOR RESPONSE. A FRIENDLY REMINDER COPAYS ARE DUE AT TIME OF SERVICE. THANK YOU. Our Patients Are Important! We want to improve and you can help. After your visit we want you to feel: Listened to, Respected and have your health care explained. You may receive a survey asking you about your visit. Please complete the survey. We will use your feedback to make improvements. COVID-19 VACCINATION INFORMATION: PH. [phone] [email or web address] [facility] Central Scheduling [phone] [facility] Sleep Scheduling [phone] documented in this encounter [facility] 01-09-2024 Hospital Discharge instructions Patient Education 01/09/2024 18:43:01 WILLARD MARCIAL(CUSTOM) Results of your scan today IMPRESSION: 1. No evidence of pulmonary embolism to the level of the segmental pulmonary arteries. 2. Right middle lobe soft tissue masslike consolidation with nearby right hilar adenopathy. Findings are concerning for malignancy or less likely pneumonia. 3. Emphysema. 4. Cholelithiasis without secondary evidence of cholecystitis. Please call your director of cardiology service line tomorrow. The scan done today needs compared to previous scans. There is concern for cancer and the findings today. Document Released: 09/10/2006 Document Revised: 08/27/2013 Document Reviewed: 09/11/2014 ExitCare Patient Information 2015 [employer]. This information is not intended to replace advice given to you by your health care provider. Make sure you discuss any questions you have with your health care provider. Follow Up Care 01/09/2024 17:21:25 With:your director of cardiology service line Address: When:2-4 days [facility] 01-09-2024 Emergency department Discharge summary Discharge Instructions Thank you for allowing [facility] to assist you with your healthcare needs. The following is important discharge information regarding your hospital visit. Diagnosis from Today's Visit Abnormal laboratory findings Lung mass What to Do Next Instructions from Your Care Team No qualifying data available. Post Acute Orders No qualifying data available. You Need to Schedule the Following Appointments Follow Up with your director of cardiology service line When Within 2-4 days Where: Allergies NKA Medications Please ask your primary doctor or pharmacist before taking any other medication not listed, including over the counter drugs, herbal medications, vitamins and or supplements as they may interact with your home medications. What How Much When Instructions Last Dose Unchanged aspirin (aspirin 81 mg oral tablet (chewable)) 1 tab(s) by mouth Once a day Unchanged budesonide-formoterol (Symbicort 80 mcg-4.5 mcg/ inh Inhaler) 2 puff(s) by inhalation Two (2) times a day Unchanged cephalexin (cephalexin 500 mg oral capsule) 1 cap by mouth Four (4) times a day Duration: 10 Days Drink plenty of fluids. Unchanged citalopram (citalopram 20 mg oral tablet) 1 tab(s) by mouth Once a day Duration: 90 Days Unchanged diphenhydrAMINE (diphenhydrAMINE 50 mg oral capsule) 1 cap by mouth Every 6 hours as needed for for allergy symptoms Duration: [address], operate heavy machinery, or drink alcohol while on med. Unchanged famotidine (famotidine 20 mg oral tablet) 1 tab(s) by mouth Two (2) times a day Duration: 5 Days Unchanged furosemide (Lasix 40 mg oral tablet) 1 tab(s) by mouth Two (2) times a day Unchanged insulin isophane (NPH) - insulin regular (HumuLIN 70/ 30 10 mL vial) 20 unit(s) Subcutaneous Two (2) times a day Unchanged losartan (losartan 50 mg oral tablet) 1 tab(s) by mouth Once a day Unchanged metFORMIN (metFORMIN 1000 mg oral tablet (IR)) 1 tab(s) by mouth Two (2) times a day Dispense the immediate release form of this medication Unchanged metoprolol (metoprolol tartrate 25 mg oral tablet) 1 tab(s) by mouth Once a day Unchanged predniSONE (Deltasone 20mg tab (TAPER)) TAKE 2 TABLETS BY MOUTH ONCE DAILY FOR 5 DAYS Unchanged predniSONE (prednisone 10mg tab (TAPER)) Taper 40-30-20-10 x 2 days each dose by mouth Once a day with a meal Duration: 8 Days Take with food/ meal. No NSAIDs while on this med. Unchanged semaglutide (Ozempic 2 mg/ 3 mL (0.25 mg or 0.5 mg dose) subcutaneous solution) 0.25 Milligram Subcutaneous Every week rotate injection sites Unchanged simvastatin (simvastatin 80 mg oral tablet) 1 tab(s) by mouth Daily at bedtime Unchanged tiotropium (Spiriva HandiHaler 18 mcg inhalation capsule) by inhalation Once a day Please take this list to your next doctor s visit. Bring all medications you take, including over the counter medications, herbals and other supplements with you to your doctor s visit. Patients and families are reminded to discard old lists and to update any records with all medication providers or retail pharmacies. Education Materials Results of your scan today IMPRESSION: 1. No evidence of pulmonary embolism to the level of the segmental pulmonary arteries. 2. Right middle lobe soft tissue masslike consolidation with nearby right hilar adenopathy. Findings are concerning for malignancy or less likely pneumonia. 3. Emphysema. 4. Cholelithiasis without secondary evidence of cholecystitis. Please call your director of cardiology service line tomorrow. The scan done today needs compared to previous scans. There is concern for cancer and the findings today. Document Released: 09/10/2006 Document Revised: 08/27/2013 Document Reviewed: 09/11/2014 ExitCare Patient Information 2015 [employer]. This information is not intended to replace advice given to you by your health care provider. Make sure you discuss any questions you have with your health care provider. Additional Information VACCINATE! IT SAVES LIVES! Members of the community who have not yet received the COVID-19 vaccine and would like to receive it can visit one of [facility] vaccine clinics. There are many vaccine clinic locations within the [facility]. For locations and available times, please visit [email or web address] It is important to note that some COVID mobile vaccine clinics are held outdoors and may be canceled in rainy or stormy conditions. To learn more about pediatric vaccinations (ages 5-11), we invite you to visit the [facility] webpage. [email or web address] [email or web address] To learn more about the COVID-19 vaccine, we invite you to visit the CDC website for a list of frequently asked questions. https://www.cdc.gov/coronavirus/ncov/vaccines/faq.html [facility] Patient Portal Access Instructions: Stay connected with your healthcare team and access your personal medical information anytime with the [facility] Patient Portal. If you would like a full copy of your medical records please contact the [facility] Medical Records Department Sunday through Sunday between 8a.m. and 4:30p.m. Please follow the directions below to access the portal: 1.Access the email account you provided upon registration to the [facility].2.Look for an invitation email from [facility].3.Open the email and access the invitation link: Accept Invitation to [facility]4.Fill in the required arteaga to create your account. Sign into [email or web address] with your username and password that you created in the above steps to stay up to date. You can then view a summary of results, a summary of your visits, and the ability to download your summaries to your computer or send the information securely to a physician. Remember that your healthcare information is confidential, so carefully consider who you will allow to register on the [facility] Patient Portal for access to your information. You can also access the [facility] Patient Portal on the [employer] Simply click on Health Records under Health Data and then click on the [employer] logo. HOW TO SAFELY DISPOSE OF PRESCRIPTION MEDICATIONS Please use one of the following methods to safely dispose of your unused medications. 1.Use a drug disposal kit: the drug disposal pouch allows you to safely discard your old and unused drugs. Ask your nurse to give you one when you are discharged.2.Visit a local take-back location: Many local pharmacies and police departments have programs that collect old and unwanted prescription drugs. Call your local pharmacy or go to http://bit.ly/9E8Uh3b to find one close to you.3.Make use of household items: Use cat litter or old coffee grounds to dispose medications if other options are not available. Mix your drugs with these household products, seal them in an airtight container and throw it into the garbage. Call [facility]: [phone] to be sure your drugs can be disposed of in this way. Some medicines may require a different approach.4.Never flush your medications down the toilet. IF YOU HAVE BEEN PRESCRIBED AN OPIOIDS FOR PAIN If you have been prescribed an opioid (such as hydrocodone, oxycodone or morphine), it is critical to understand the possible side effects and risks of opioid pain medications. Even when taken as directed, opioids can have several side effects including: Tolerance, meaning you might need to take more of a medication for the same pain relief. Nausea, vomiting and/or constipation. Sleepiness, dizziness, dry mouth, confusion, depression or itching. Physical dependence, meaning you have withdrawal symptoms when a medication is stopped ? this can develop within a few days. KNOW YOUR RESPONSIBILITIES It is important to know exactly how much and how often to take the opioid pain medications you are prescribed. Never take opioids in higher amounts or more often than prescribed. Do not combine opioids with alcohol or other drugs that cause drowsiness, such as benzodiazepines, also known as benzos, including diazepam and alprazolam, muscle relaxants or sleep aids. Never sell or share prescription opioids. This is illegal. Store opioids in a secure place and out of reach of others (including children, family, friends and visitors). The last page(s) of this document has been signed and retained as a CHART COPY Signatures Patient Education Materials WILLARD MARCIAL(CUSTOM) Medication Leaflets My discharge plan and instructions have been reviewed and explained to me and I,ALEKS COSTELLO understand my current condition and have read and understand these discharge instructions. I have received a written copy of the plan/instructions. If I have questions, I am aware that I should contact my doctor. 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 Multiplanar reformatted images are provided for review. MIP images are provided for review. Automated exposure control, iterative reconstruction, and/or weight based adjustment of the mA/kV was utilized to reduce the radiation dose to as low as reasonably achievable. COMPARISON: 12/07/2015 HISTORY: ORDERING SYSTEM PROVIDED HISTORY: Reason for Exam: chest pain; suspect PE FINDINGS: There is adequate contrast opacification of the pulmonary arterial vasculature. There is no filling defect or vessel cutoff to indicate pulmonary embolus to the level of the segmental arteries. No right ventricular strain. The thoracic aorta is normal in caliber. 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 There is extensive [place] coronary artery calcification. Mild gynecomastia. No pericardial effusion. There is inferoapical thinning. There is a 1.6 cm right hilar lymph node no subcarinal or paratracheal adenopathy is evident. At the right inferior hilar region in the right middle lobe, there is slightly spiculated soft tissue density measuring 3.5 x 3.2 cm on axial image 124. There are emphysematous changes throughout the lungs. No pleural effusion or pneumothorax. 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 No acute osseous abnormality. There is cholelithiasis without secondary evidence of cholecystitis. No acute upper abdominal findings. IMPRESSION: 1. No evidence of pulmonary embolism to the level of the segmental pulmonary arteries. 2. Right middle lobe soft tissue masslike consolidation with nearby right hilar adenopathy. Findings are concerning for malignancy or less likely pneumonia. 3. Emphysema. 4. Cholelithiasis without secondary evidence of cholecystitis. Interpreted by: Beka Cadet DO Preliminary Report By: Beka Cadet DO Electronically signed By Beka Cadet DO Dictated Date: 01/09/2024 6:15:47 PM Prelim Date: 01/09/2024 6:25:25 PM Sign Date: 01/09/2024 6:25:25 PM Ordering Provider: BALA CARMONA [facility] 01-09-2024 Note ORIGINAL EXAMINATION: TWO XRAY VIEWS OF THE CHEST01/09/2024 5:39 pm COMPARISON: 12/17/2016, 11/30/2015 HISTORY: ORDERING SYSTEM PROVIDED HISTORY: Reason for Exam: chest pain FINDINGS: There are median sternotomy wires and mediastinal clips. The cardiac silhouette is normal. There is increased prominence of the right infrahilar region. There is streaky bibasilar airspace opacities. No pleural effusion or pneumothorax. No acute osseous abnormality. IMPRESSION: 1. Prominence of the right infrahilar region, uncertain in etiology. Although this may be vascular in origin, underlying nodule or infiltrate not excluded. CT chest with contrast may help delineate. 2. Streaky bibasilar airspace opacities likely representing atelectasis. Interpreted by: Beka Cadet DO Preliminary Report By: Beka Cadet DO Electronically signed By Beka Cadet DO Dictated Date: 01/09/2024 5:40:12 PM Prelim Date: 01/09/2024 5:43:29 PM Sign Date: 01/09/2024 5:43:29 PM Ordering Provider: GILMAR BELTRAN [facility] 12-31-2023 Hospital Discharge instructions Patient Education 12/31/2023 13:07:49 Contact Dermatitis Contact Dermatitis Contact dermatitis is a skin rash caused by something that touches the skin and makes it irritated and inflamed. Your skin may be red, swollen, dry, and may be cracked. Blisters may form and ooze. The rash will itch. Contact dermatitis can form on the face and neck, backs of hands, forearms, genitals, and lower legs. People can get contact dermatitis from lots of sources. These include: Plants such as poison reji, oak, or sumac Chemicals in hair dyes and rinses, soaps, solvents, waxes, fingernail mauritanian, and deodorants Jewelry or watchbands made of nickel Contact dermatitis is not passed from person to person. Talk with your healthcare provider about what may have caused the rash. A type of allergy testing called patch testing may be used to discover what you are allergic to. You will need to avoid the source of your rash in the future to prevent it from coming back. Treatment is done to relieve itching and prevent the rash from coming back. The rash should go away in a few days to a few weeks. Home care Your healthcare provider may prescribe medicine to relieve swelling and itching. Follow all instructions when using these medicines. General care: Avoid anything that heats up your skin, such as hot showers or baths, or direct sunlight. This can make itching worse. Apply cold compresses to soothe your sores to help relieve your symptoms. Do this for 30 minutes 3 to 4 times a day. You can make a cold compress by soaking a cloth in cold water. Squeeze out excess water. You can add colloidal oatmeal to the water to help reduce itching. For severe itching in a small area, apply an ice pack wrapped in a thin towel. Do this for 20 minutes 3 to 4 times a day. You can also try wet dressings. One way to do this is to wear a wet piece of clothing under a dry one. Wear a damp shirt under a dry shirt if your upper body is affected. This can relieve itching and prevent you from scratching the affected area. You can also help relieve large areas of itching by taking a lukewarm bath with colloidal oatmeal added to the water. Use hydrocortisone cream for redness and irritation, unless another medicine was prescribed. You can also use benzocaine anesthetic cream or spray. Calamine lotion can also relieve mild symptoms. Use oral diphenhydramine to help reduce itching. You can buy this antihistamine at drug and grocery stores. It can make you sleepy, so use lower doses during the daytime. Or you can use loratadine. This is an antihistamine that will not make you sleepy. Do not use diphenhydramine if you have glaucoma or have trouble urinating due to an enlarged prostate. If a plant causes your rash, make sure to wash your skin and the clothes you were wearing when you came into contact with the plant. This is to wash away the plant oils that gave you the rash and prevent more or worse symptoms. Stay away from the substance or object that causes your symptoms. If you can t avoid it, wear gloves or some other type of protection. Follow-up care Follow up with your healthcare provider, or as advised. When to seek medical advice Call your healthcare provider right away if any of these occur: Spreading of the rash to other parts of your body Severe swelling of your face, eyelids, mouth, throat or tongue Trouble urinating due to swelling in the genital area Fever of 100.4 F (38 C) or higher Redness or swelling that gets worse Pain that gets worse Foul-smelling fluid leaking from the skin Yellow-brown crusts on the open blisters [phone] [employer]. [address] [place] [address]. All rights reserved. This information is not intended as a substitute for professional medical care. Always follow your healthcare professional's instructions. Follow Up Care 12/31/2023 12:48:17 With:FORTINO CROSS Address: [address] [place] [phone] Business (1) When:5-7 days Comments:Follow-up as needed if symptoms or not improving.Continue topical hydrocortisone cream to affected areas.Use Benadryl 50 mg every 6 hours for itching as needed.Use oral steroid (prednisone) and famotidine as prescribed.Monitor your blood sugar closely. Discontinue prednisone if blood sugar goes up.Return to the ED if symptoms worsen. [facility] 12-31-2023 Emergency department Discharge summary Discharge Instructions Thank you for allowing [facility] to assist you with your healthcare needs. The following is important discharge information regarding your hospital visit. Diagnosis from Today's Visit Rash What to Do Next Instructions from Your Care Team No qualifying data available. Post Acute Orders No qualifying data available. You Need to Schedule the Following Appointments Follow Up with FORTINO CROSS When Within 5-7 days Why: Follow-up as needed if symptoms or not improving. Continue topical hydrocortisone cream to affected areas. Use Benadryl 50 mg every 6 hours for itching as needed. Use oral steroid (prednisone) and famotidine as prescribed. Monitor your blood sugar closely. Discontinue prednisone if blood sugar goes up. Return to the ED if symptoms worsen. Where: [address] [place] [phone] Business (1) Allergies NKA Medications Please ask your primary doctor or pharmacist before taking any other medication not listed, including over the counter drugs, herbal medications, vitamins and or supplements as they may interact with your home medications. What How Much When Instructions Last Dose New famotidine (famotidine 20 mg oral tablet) 1 tab(s) by mouth Two (2) times a day Duration: 5 Days Printed Prescription New predniSONE (predniSONE 20 mg oral tablet) 2 tab(s) by mouth Once a day Duration: 5 Days Printed Prescription Unchanged aspirin (aspirin 81 mg oral tablet (chewable)) 1 tab(s) by mouth Once a day Unchanged budesonide-formoterol (Symbicort 80 mcg-4.5 mcg/ inh Inhaler) 2 puff(s) by inhalation Two (2) times a day Unchanged citalopram (citalopram 20 mg oral tablet) 1 tab(s) by mouth Once a day Duration: 90 Days Unchanged furosemide (Lasix 40 mg oral tablet) 1 tab(s) by mouth Two (2) times a day Unchanged insulin isophane (NPH) - insulin regular (HumuLIN 70/ 30 10 mL vial) 20 unit(s) Subcutaneous Two (2) times a day Unchanged losartan (losartan 50 mg oral tablet) 1 tab(s) by mouth Once a day Unchanged metFORMIN (metFORMIN 1000 mg oral tablet (IR)) 1 tab(s) by mouth Two (2) times a day Dispense the immediate release form of this medication Unchanged metoprolol (metoprolol tartrate 25 mg oral tablet) 1 tab(s) by mouth Once a day Unchanged semaglutide (Ozempic 2 mg/ 3 mL (0.25 mg or 0.5 mg dose) subcutaneous solution) 0.25 Milligram Subcutaneous Every week rotate injection sites Unchanged simvastatin (simvastatin 80 mg oral tablet) 1 tab(s) by mouth Daily at bedtime Unchanged tiotropium (Spiriva HandiHaler 18 mcg inhalation capsule) by inhalation Once a day Please take this list to your next doctor s visit. Bring all medications you take, including over the counter medications, herbals and other supplements with you to your doctor s visit. Patients and families are reminded to discard old lists and to update any records with all medication providers or retail pharmacies. Medication Leaflets famotidine (oral/injection) (fam OH ti akshat) Heartburn Relief, Pepcid, Pepcid AC, Pepcid AC Maximum Strength, Zantac 360 What is the most important information I should know about famotidine? Follow all directions on the label and package. Use exactly as directed. What is famotidine? Famotidine is used to treat and prevent ulcers in the stomach and intestines. It also treats conditions in which the stomach produces too much acid, such as Harpal-Jaquez syndrome. Famotidine also treats gastroesophageal reflux disease (GERD) and other conditions in which acid backs up from the stomach into the esophagus, causing heartburn. The Zantac 360 brand of this medicine does not contain ranitidine, a medicine that was withdrawn from market in the [place]. Famotidine may also be used for purposes not listed in this medication guide. What should I discuss with my healthcare provider before taking famotidine? Heartburn can feel like a heart attack. Get emergency medical help if you have chest pain that spreads to your jaw or shoulder. You should not use this medicine if you are allergic to famotidine or similar medicines such as ranitidine (Zantac), cimetidine (Tagamet), or nizatidine (Axid). Ask a doctor or pharmacist if this medicine is safe to use if you have: kidney disease; liver disease; cancer stomach; or long QT syndrome (in you or a family member). Ask a doctor before using this medicine if you are or . How should I take famotidine? Use exactly as directed on the label, or as prescribed by your doctor. Famotidine oral is taken by mouth. Famotidine injection is given in a vein if you are unable to take the medicine by mouth. You may take famotidine oral with or without food. Measure liquid medicine with the supplied syringe or a dose-measuring device (not a kitchen spoon). Most ulcers heal within 4 weeks of famotidine treatment, but it may take up to 8 weeks of using this medicine before your ulcer heals. Keep using the medication as directed. Call your doctor if the condition you are treating with famotidine does not improve, or if it gets worse while using famotidine. Your treatment may also include changes in diet or lifestyle habits. Follow all instructions of your doctor or dietitian. Store at room temperature away from moisture, heat, and light. Do not allow the liquid medicine to freeze. Throw away any unused famotidine liquid that is older than 30 days. What happens if I miss a dose? Take the medicine as soon as you can, but skip the missed dose if it is almost time for your next dose. Do not take two doses at one time. What happens if I overdose? Seek emergency medical attention or call the Poison Help line at . What should I avoid while taking famotidine? Drinking alcohol may increase the risk of damage to your stomach. Avoid taking other stomach acid reducers unless your doctor has told you to. However, you may take an antacid (such as Maalox, Mylanta, Gaviscon, Milk of Magnesia, Rolaids, or Tums) with famotidine. What are the possible side effects of famotidine? Get emergency medical help if you have signs of an allergic reaction: hives; difficult breathing; swelling of your face, lips, tongue, or throat. Stop using famotidine and call your doctor at once if you have: confusion, hallucinations, agitation, lack of energy; a seizure; fast or pounding heartbeats, sudden dizziness (like you might pass out); or unexplained muscle pain, tenderness, or weakness especially if you also have fever, unusual tiredness, and dark colored urine. Some side effects may be more likely in older adults and in people who have severe kidney disease. Common side effects may include: headache; dizziness; or constipation or diarrhea. This is not a complete list of side effects and others may occur. Call your doctor for medical advice about side effects. You may report side effects to FDA at 3-807-QPP-7100. What other drugs will affect famotidine? Famotidine oral can make it harder for your body to absorb other medicines you take by mouth. Tell your doctor if you are taking: cefditoren; dasatinib; delavirdine; fosamprenavir; or tizanidine (if you are taking famotidine liquid). This list is not complete. Other drugs may affect famotidine, including prescription and znxk-siq-mtrodiq medicines, vitamins, and herbal products. Not all possible drug interactions are listed here. Where can I get more information? Your doctor or pharmacist can provide more information about famotidine. Remember, keep this and all other medicines out of the reach of children, never share your medicines with others, and use this medication only for the indication prescribed. Every effort has been made to ensure that the information provided by [employer]') is accurate, up-to-date, and complete, but no guarantee is made to that effect. Drug information contained herein may be time sensitive. [employer] information has been compiled for use by healthcare practitioners and consumers in the [place] and therefore [employer] does not warrant that uses outside of the [place] are appropriate, unless specifically indicated otherwise. [employer] drug information does not endorse drugs, diagnose patients or recommend therapy. [employer] drug information is an informational resource designed to assist licensed healthcare practitioners in caring for their patients and/or to serve consumers viewing this service as a supplement to, and not a substitute for, the expertise, skill, knowledge and judgment of healthcare practitioners. The absence of a warning for a given drug or drug combination in no way should be construed to indicate that the drug or drug combination is safe, effective or appropriate for any given patient. [employer] does not assume any responsibility for any aspect of healthcare administered with the aid of information [employer] provides. The information contained herein is not intended to cover all possible uses, directions, precautions, warnings, drug interactions, allergic reactions, or adverse effects. If you have questions about the drugs you are taking, check with your doctor, nurse or pharmacist. Copyright 6595-2542 [employer] Version: 20.. Revision Date: 04/16/2023. prednisone (PRED shane Cm What is the most important information I should know about prednisone? You should not use prednisone if you have a fungal infection anywhere in your body. You should not stop using prednisone suddenly. Follow your doctor's instructions about tapering your dose. What is prednisone? Prednisone is a steroid that reduces inflammation in the body, and also suppresses your immune system. Prednisone is used to treat many different conditions such as hormonal disorders, skin diseases, arthritis, lupus, psoriasis, allergic conditions, ulcerative colitis, Crohn's disease, eye diseases, lung diseases, asthma, tuberculosis, blood cell disorders, kidney disorders, leukemia, lymphoma, multiple sclerosis, organ transplant rejection, swelling from a brain tumor or injury. Prednisone may also be used for purposes not listed in this medication guide. What should I discuss with my healthcare provider before taking prednisone? You should not use prednisone if you are allergic to it, or if you have a fungal infection anywhere in your body. Steroid medication can weaken your immune system, making it easier for you to get an infection or worsening an infection you already have. Tell your doctor about any illness or infection you've had within the past several weeks. Tell your doctor if you have ever had: heart problems, high blood pressure, or a heart attack; glaucoma or cataracts; herpes infection of the eyes; past or present tuberculosis; a parasite infection that causes diarrhea (such as threadworms); any illness that causes diarrhea; underactive thyroid; diabetes; a stomach ulcer, diverticulitis; a colostomy or ileostomy; osteoporosis or low bone mineral density (steroid medication can increase your risk of bone loss); low levels of calcium or potassium in your blood; cirrhosis or other liver disease; mental illness or psychosis; or a muscle disorder such as myasthenia gravis. Long-term use of steroids may lead to bone loss (osteoporosis), especially if you smoke or drink alcohol, if you do not exercise, or if you do not get enough vitamin D or calcium in your diet. It is not known whether this medicine will harm an unborn baby. Tell your doctor if you are or plan to become . You should not breastfeed while using prednisone. How should I take prednisone? Follow all directions on your prescription label and read all medication guides or instruction sheets. Your doctor may occasionally change your dose. Use the medicine exactly as directed. Prednisone is taken daily or every other day, depending on the condition being treated. You may need to take the medicine at a certain time of day. Follow your doctor's instructions about when and how often to take this medicine. Take with food if prednisone upsets your stomach. Measure liquid medicine carefully. Use the dosing syringe provided, or use a medicine dose-measuring device (not a kitchen spoon). Swallow the delayed-release tablet whole and do not crush, chew, or break it. Prednisone can weaken (suppress) your immune system, and you may get an infection more easily. Call your doctor if you have signs of infection (fever, weakness, cold or flu symptoms, skin sores, diarrhea, frequent or recurring illness). If you have major surgery or a severe injury or infection, your prednisone dose needs may change. Make sure any doctor caring for you knows you are using this medicine. If you use this medicine long-term, you may need medical tests and vision exams. In case of emergency, wear or carry medical identification to let others know you use a steroid. You should not stop using prednisone suddenly.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 Cross DO [address] [place] [address] PCP - General Family Medicine 02/19/24 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 Relationship Specialty Start Date End Date Fortino Cross DO [address] [place] [address] PCP - General Family Medicine 02/19/24 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 Relationship Specialty Start Date End Date Fortino Cross DO [address] [place] [address] PCP - General Family Medicine 02/19/24 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 Relationship Specialty Start Date End Date Fortino Cross DO [address] [place] [address] PCP - General Family Medicine 02/19/24 Karen Casillas, ARTURO Registered Nurse Oncology 04/08/24 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 Relationship Specialty Start Date End Date Fortino Cross DO [address] [place] [address] PCP - General Family Medicine 02/19/24 Karen Casillas RN Registered Nurse Oncology 04/08/24 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 Relationship Specialty Start Date End Date Fortino Cross DO [address] [place] [address] PCP - General Family Medicine 02/19/24 Karen Casillas RN Registered Nurse Oncology 04/08/24 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 Relationship Specialty Start Date End Date Fortino Cross DO [address] [place] [address] PCP - General Family Medicine 02/19/24 Karen Casillas, ARTURO Registered Nurse Oncology 04/08/24 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 Relationship Specialty Start Date End Date Fortino Cross DO [address] [place] [address] PCP - General Family Medicine 02/19/24 Karen Casillas, RN Registered Nurse Oncology 04/08/24 Care Team (unrecognized sect ion and content) Care Team Personnel Name: FORTINO CROSS DO Position: P4 Physician - Primary Care Med Service: Active Provider Member Role: Primary Care Physician Address: Address: [address] [place] [phone]- Care Team Related Persons Name: TANJA COSTELLO Address: Home [id number] [place] [phone] [place] Care Team Personnel Name: ASHA, FORTINO DO Position: P4 Physician - Primary Care Member Role: Primary Care Physician Address: Address: [address] [place] [id number] [place] [address] Care Team Related Persons Name: TANJA COSTELLO Address: Home [address] [place], [place] [id number] Care Team Personnel Name: FORTINO CROSS Position: P4 Physician - Primary Care Member Role: Primary Care Physician Address: Address: [address] [place] [address] [place] Care Team Related Persons Name: TANJA COSTELLO Address: Home [address] [place], [place] [id number] Reason for Visit (unrecogniz ed section and content) Reason Comments New Patient Specialty Diagnoses / Procedures Referred By Contac t Referred To Contact Pulmonology Diagnoses Other nonspecific abnormal finding of lung field Navigational Bronch - Adel unable to perform Procedures SD OFFICE/OUTPATIENT NEW MODERATE MDM 45 MINUTES Roxanne Ruelas [address] [place] [address] [facility] [address] [address] Referral ID Status Reason Start Date Expiration Date V isits Requested Visits Authorized [id number] Pending Review 02/19/2024 02/18/2025 1 1 Reason Onset Date Comments Care Coordination 02/25/2024 Reason Onset Date Comments Care Coordination 02/27/2024 Expedite PFT Specialty Diagnoses / Procedures Referred By Contac t Referred To Contact Pulmonology Diagnoses Chronic obstructive pulmonary disease, unspecified COPD type (HCC) Procedures Complete PFT pre and post bronchodilator Ace Quinonez MD [address] [place] [address] [address] [place] [address] Referral ID Status Reason Start Date Expiration Date Visits Re quested Visits Authorized [id number] Closed 02/22/2024 02/16/2025 1 1 Reason Comments Lung Cancer Specialty Diagnoses / Procedures Referred By Contac t Referred To Contact Diagnoses Lung mass Lymphadenopathy Procedures SD BRONCHOSCOPY W/CPTR-ASST IMAGE-GUIDED NAVIGATION SD [facility] EBUS DX/TX INTERVENTION PERPH LES ELECTROMAGNETIC NAVIGATIONAL BRONCHOSCOPY WITH X-RAY ENDOBRONCHIAL ULTRASOUND BRONCHOSCOPY Marcos Padilla MD [address] [place] [address] [facility] [address] [place] [address] Referral ID Status Reason Start Date Expiration Date Visits Re quested Visits Authorized [id number] 1 1 Reason Onset Date Comments Care Coordination 02/22/2024 Outside image request Reason Onset Date Comments Orders 04/08/2024 Reason Comments Nurse Navigation Reason Comments New Patient Specialty Diagnoses / Procedures Referred By Sharon t Referred To Contact Cardiothoracic Surgery Diagnoses Malignant neoplasm of middle lobe of right lung (HCC) Procedures SD OFFICE/OUTPATIENT NEW HIGH MDM 60 MINUTES Marcos Padilla MD [address] [place] [address] [facility] [address] [facility] [address] [place] [address] Referral ID Status Reason Start Date Expiration Date V isits Requested Visits Authorized [id number] Closed Specialty Services Required 03/11/2024 03/11/2025 1 1 Reason Onset Date Comments Orders 04/08/2024 Scheduled Active and Recently Administ ered Medications (unrecognized section and content) Medication Order 03/01/2024 03/02/2024 03/03/2024 sodium chloride 0.9% (NS) flush 10 mL 10 mL, IntraVENous, Every 12 hours scheduled (2 times per day), First dose on Sun03/03/24 at 2100, Recovery (only) Continuous Medication Order 03/01/2024 03/02/2024 03/03/2024 lactated ringers infusion 125 mL/hr, IntraVENous, Continuous, Starting on Sun03/03/24 at 1515, Recovery (only) 1515 (Canceled Entry - Provider: Automatic Discharge Provider - Comment: Automatically canceled at discontinue of medication order) PRN Medication Order 03/01/2024 03/02/2024 03/03/2024 diphenhydrAMINE (BENADryl) injection 12.5 mg 12.5 mg, IntraVENous, Once PRN, itching, Starting on Sun03/03/24 at 1505, For 1 dose, Recovery (only) hydrALAZINE (Apresoline) injection 5 mg(Linked Group 1) 5 mg, IntraVENous, Every 15 min PRN, high blood pressure, for SBP greater than 160 mmHg for 2 consecutive measurements taken from different sites, Starting on Sun03/03/24 at 1505, For 2 doses, Recovery (only), PRN for SBP > 160 for 2 consecutive measurements, and if one of the following conditions is met: 1) If IV labetolol is ineffective. 2) If HR is under 60. 3) If patient has heart block, COPD or asthma. If both labetalol and hydralazine ineffective, notify anesthesia provider. HYDROmorphone (Dilaudid) injection 0.25 mg 0.25 mg, IntraVENous, Every 5 min PRN, moderate pain (4-6), Starting on Sun03/03/24 at 1505, For 4 doses, Recovery (only), Phase I and Phase II- Initial therapy for moderate pain (4-6). Restricted to a 90 minute time frame starting when the patient can verbally state their pain score. If after 2 doses the pain score does not decrease by more than one point, then call the provider. If oral meds are utilized, do not return to initial therapy medications. HYDROmorphone (Dilaudid) injection 0.5 mg 0.5 mg, IntraVENous, Every 5 min PRN, severe pain (7-10), Starting on Sun03/03/24 at 1505, For 4 doses, Recovery (only), Phase I and Phase II- Initial therapy for severe pain (7-10). Restricted to a 90 minute time frame starting when the patient can verbally state their pain score. If after 2 doses the pain score does not decrease by more than one point, then call the provider. If oral meds are utilized, do not return to initial therapy medications. labetalol (Normodyne,Trandate) injection 5 mg(Linked Group 1) 5 mg, IntraVENous, Every 10 min PRN, high blood pressure, for SBP greater than 160 mmHg for 2 consecutive measurements taken from different sites., Starting on Sun03/03/24 at 1505, For 2 doses, Recovery (only), PRN for SBP >160 for 2 consecutive measurements, if HR is 60 or greater. If beta dawit is contraindicated (HR less than 60, heart block, COPD or asthma) use hydralazine IV order. LORazepam (Ativan) injection 0.5 mg 0.5 mg, IntraVENous, Once PRN, for anxiety or muscle spasm., Starting on Sun03/03/24 at 1505, For 1 dose, Recovery (only), For IV doses dilute dose with 1ml NS. ondansetron (Zofran) injection 4 mg 4 mg, IntraVENous, Once PRN, nausea, Starting on Sun03/03/24 at 1505, For 1 dose, Recovery (only), Initial antiemetic therapy. oxyCODONE (Roxicodone) immediate release tablet 10 mg(Linked Group 2) 10 mg, Oral, PRN, severe pain (7-10), Starting on Sun03/03/24 at 1505, For 1 dose, Recovery (only), PHASE II oxyCODONE (Roxicodone) immediate release tablet 5 mg(Linked Group 2) 5 mg, Oral, PRN, moderate pain (4-6), Starting on Sun03/03/24 at 1505, For 1 dose, Recovery (only), PHASE II sodium chloride 0.9 % bolus 500 mL 500 mL, IntraVENous, at 1,000 mL/hr, Administer over 0.5 Hours, PRN, Anti-nausea, Starting on Sun03/03/24 at 1505, Recovery (only), Indications: Anti-nausea sodium chloride 0.9 % infusion (CANCELED) 5-250 mL/hr, IntraVENous, PRN, if patient receiving piggyback infusions and maintenance fluids are not ordered OR KVO fluids to protect IV site / prevent frequent line interruptions/ long duration, Starting on Sun03/03/24 at 1208, Preprocedure, For piggyback infusion, administer at same rate as piggyback for a total of 25 mL. Enter 25 mL into dose field and piggyback rate into rate field of order. If piggyback is infusing at a rate less than 100 mL/hr, enter 25 mL into dose field and 100 mL/hr into rate field of order. For KVO fluids, enter rate of 20 mL/hr or less into rate field of order. 1208 ([facility] - Prov ider: Shira Martin RN)1254 (Continued by Anesthesia - Provider: Lj Dixon APRN - DOPE WEIGH OPERATOR) sodium chloride 0.9 % infusion 5-250 mL/hr, IntraVENous, PRN, if patient receiving piggyback infusions and maintenance fluids are not ordered OR KVO fluids to protect IV site / prevent frequent line interruptions/ long duration, Starting on Sun03/03/24 at 1505, Recovery (only), For piggyback infusion, administer at same rate as piggyback for a total of 25 mL. Enter 25 mL into dose field and piggyback rate into rate field of order. If piggyback is infusing at a rate less than 100 mL/hr, enter 25 mL into dose field and 100 mL/hr into rate field of order. For KVO fluids, enter rate of 20 mL/hr or less into rate field of order. sodium chloride 0.9% (NS) flush 10 mL 10 mL, IntraVENous, PRN, line care, Starting on Sun03/03/24 at 1505, Recovery (only), After every IV line use Linked Groups Order Group 1: labetalol (Normodyne,Trandate) injection 5 mgJump to med 5 mg, IntraVENous, Every 10 min PRN, high blood pressure, for SBP greater than 160 mmHg for 2 consecutive measurements taken from different sites., Starting on Sun03/03/24 at 1505, For 2 doses, Recovery (only), PRN for SBP >160 for 2 consecutive measurements, if HR is 60 or greater. If beta dawit is contraindicated (HR less than 60, heart block, COPD or asthma) use hydralazine IV order. Or hydrALAZINE (Apresoline) injection 5 mgJump to med 5 mg, IntraVENous, Every 15 min PRN, high blood pressure, for SBP greater than 160 mmHg for 2 consecutive measurements taken from different sites, Starting on Sun03/03/24 at 1505, For 2 doses, Recovery (only), PRN for SBP > 160 for 2 consecutive measurements, and if one of the following conditions is met: 1) If IV labetolol is ineffective. 2) If HR is under 60. 3) If patient has heart block, COPD or asthma. If both labetalol and hydralazine ineffective, notify anesthesia provider. Group 2: oxyCODONE (Roxicodone) immediate release tablet 5 mgJump to med 5 mg, Oral, PRN, moderate pain (4-6), Starting on 03/03/24 at 1505, For 1 dose, Recovery (only), PHASE II Or oxyCODONE (Roxicodone) immediate release tablet 10 mgJump to med 10 mg, Oral, PRN, severe pain (7-10), Starting on 03/03/24 at 1505, For 1 dose, Recovery (only), PHASE II (unrecognized sect ion and content) No Status Records FoundNo Status Records Found INFORMATION SOURCE (unrecogn ized section and content) DATE CREATED AUTHOR 04/13/[address] [facility] [place] [facility] DATE CREATED AUTHOR AUTHOR'S ORGANIZ ATION 06/18/2024 [facility] FOR RECORDS PERTAINING TO PATIENTS WHO ARE OR HAVE BEEN ENROLLED IN A CHEMICAL DEPENDENCY/SUBSTANCEABUSE PROGRAM, SOME INFORMATION MAY BE OMITTED. This clinical summary was aggregated from multiple sources. Caution should be exercised in using it in the provision of clinical care. This summary normalizes information from multiple sources, and as a consequence, information in this document may materially change the coding, format and clinical context of patient data. In addition, data may be omitted in some cases. CLINICAL DECISIONS SHOULD BE BASED ON THE PRIMARY CLINICAL RECORDS. [employer] provides no warranty or guarantee of the accuracy or completeness of information in this document.
== END | disposition home or self-care (01) ==
LOC: CVS 12:41
PROVIDERS: PCP Preventive Medicine Occupational Medicine; Referring Provider Nurse Practitioner Family; Visit Provider Nurse Practitioner Family
DX: R94.31 Abnormal electrocardiogram [ECG] [EKG] (principal); R00.0 Tachycardia, unspecified
CPT/HCPCS: 93005; 93306

== ENCOUNTER → 2024-12-24 | Outpatient (CLI) | payer MEDICARE, SELFPAY ==
--- NOTE | 2024-12-24 07:59 | EKG12_ITS ---
Test Reason : HIGH RISK MED Blood Pressure : */* mmHG Vent. Rate : 94 BPM Atrial Rate : 93 BPM P-R Int : 194 ms QRS Dur : 98 ms QT Int : 384 ms P-R-T Axes : 60 50 69 degrees QTcB Int : 480 ms Normal sinus rhythm Low voltage QRS Borderline Confirmed by Ramy Thompson ([id number]), editorial director DARBY DONOHUE ([id number]) on 12/25/2024 7:52:08 AM Referred By: Lj Baum Confirmed By: Ramy Thompson
== END | disposition home or self-care (01) ==
LOC: PSN 07:58
PROVIDERS: PCP Preventive Medicine Occupational Medicine; Referring Provider Internal Medicine Medical Oncology; Visit Provider Internal Medicine Medical Oncology
DX: C34.90 Malignant neoplasm of unspecified part of unspecified bronchus or lung (principal); C78.7 Secondary malignant neoplasm of liver and intrahepatic bile duct; Z79.899 Other long term (current) drug therapy
CPT/HCPCS: 93005

== ENCOUNTER → 2025-02-04 | Outpatient (CLI) | payer MEDICARE, SELFPAY ==
--- NOTE | 2025-02-04 11:50 | EKG12_ITS ---
Test Reason : HIGH RISK MED Blood Pressure : */* mmHG Vent. Rate : 118 BPM Atrial Rate : 118 BPM P-R Int : 178 ms QRS Dur : 92 ms QT Int : 356 ms P-R-T Axes : 48 51 65 degrees QTcB Int : 498 ms Sinus tachycardia Low voltage QRS Nonspecific T wave abnormality Abnormal ECG Confirmed by Ramy Thompson ([id number]), clinical editor DARBY DONOHUE ([id number]) on 02/05/2025 9:36:03 AM Referred By: Lj Baum Confirmed By: Ramy Thompson
== END | disposition home or self-care (01) ==
LOC: PSN 11:48
PROVIDERS: PCP Preventive Medicine Occupational Medicine; Referring Provider Internal Medicine Medical Oncology; Visit Provider Internal Medicine Medical Oncology
DX: C34.90 Malignant neoplasm of unspecified part of unspecified bronchus or lung (principal); C78.7 Secondary malignant neoplasm of liver and intrahepatic bile duct; Z79.899 Other long term (current) drug therapy
CPT/HCPCS: 93005

== ENCOUNTER → 2025-02-12 | Outpatient (CLI) | payer MEDICARE, SELFPAY ==
--- NOTE | 2025-02-12 14:45 | RAD_ITS ---
PROCEDURE: CHEST PA AND LATERAL 02/12/2025 REASON FOR EXAM: LUNG CA TECHNIQUE: Frontal and lateral views of the chest. 2 frontal views to include the entire chest, 3 total images COMPARISON: None available FINDINGS: Architectural distortion about the right mid to lower hilum and right heart border with increased bandlike opacity in the right mid to lower lung with considerations including radiation pneumonitis given the apparent structural changes with a superimposed multifocal pneumonia not entirely excluded. Mild thickening along the lower right chest may represent pleural thickening or small effusion not excluded. The left lung appears clear. No convincing evidence of a pleural effusion is noted on the lateral view. Status post median sternotomy with multiple sternal wire fractures. Size of the cardiac silhouette appears within limits for technique. Appearance of some rightward shift of mediastinal structures. The visualized osseous structures appear within limits. RAD/Chest PA and Lateral IMPRESSION: Architectural distortion about the right mid to lower hilum and right heart bor carlos a with increased bandlike opacity in the right mid to lower lung with considerations including radiation pneumonitis given the apparent structural changes with a superimposed multifocal pneumonia not entirely excluded. Reading Location: [id number]
--- NOTE | 2025-02-12 15:00 | CT_ITS ---
EXAM: CT Chest With Intravenous Contrast CLINICAL INDICATION: LUNG CA/COUGH/PNEUMONITIS-HIGH RESOLUTION CT TECHNIQUE: Axial computed tomography images of the chest with intravenous contrast. This CT exam was performed using one or more of the following dose reduction techniques: automated exposure control, adjustment of the mA and/or kV according to patient size, and/or use of iterative reconstruction technique. COMPARISON: No relevant prior studies available. FINDINGS: LUNGS AND PLEURAL SPACES: Lung emphysema/COPD with partial consolidation of the right middle and right lower lobes. These may be combination of atelectasis and pneumonia. No significant effusion. HEART: Unremarkable. No cardiomegaly. No significant pericardial effusion. No significant coronary artery calcifications. BONES/JOINTS: Unremarkable. No acute fracture. SOFT TISSUES: Unremarkable. VASCULATURE: Unremarkable. No thoracic aortic aneurysm. LYMPH NODES: Unremarkable. No enlarged lymph nodes. CT/Chest WITH Contrast IMPRESSION: Lung emphysema/COPD with partial consolidation of the right middle and right lo wer lobes. These may be combination of atelectasis and pneumonia. Reading Location: [id number]
== END | disposition home or self-care (01) ==
LOC: CT 14:43
PROVIDERS: PCP Preventive Medicine Occupational Medicine; Referring Provider Internal Medicine Medical Oncology; Visit Provider Internal Medicine Medical Oncology
DX: C34.91 Malignant neoplasm of unspecified part of right bronchus or lung (principal); J98.4 Other disorders of lung; R05.3 Chronic cough
CPT/HCPCS: 71046; 71260; Q9967

== ENCOUNTER 2025-02-18 14:26 | Emergency (ER) | payer MEDICARE, SELFPAY ==
[2025-02-18] VITALS (10 sets, daily range): BP systolic 103–143; BP diastolic 60–80; PULSE 105–116; RESP 16–28; TEMP 36.7–36.9; O2SAT 94–99; BMI 35.8
--- NOTE | 2025-02-18 14:29 | EKG12_ITS ---
Test Reason : STROKE ALERT Blood Pressure : */* mmHG Vent. Rate : 110 BPM Atrial Rate : 110 BPM P-R Int : 174 ms QRS Dur : 82 ms QT Int : 350 ms P-R-T Axes : 71 67 64 degrees QTcB Int : 473 ms Sinus tachycardia Low voltage QRS Borderline ECG Confirmed by HAMILTON RICHTER ([id number]), editor in chief newspaper LO BHATTI ([id number]) on 02/23/2025 7:30:40 AM Referred By: Confirmed By: HAMILTON RICHTER
--- NOTE | 2025-02-18 14:29 | CT_ITS ---
PROCEDURE: STROKE CTA HEAD AND NECK W/CON 02/18/2025 REASON FOR EXAM: NEURO DEFICIT, ACUTE, STROKE SUSPECTED TECHNIQUE: CTA imaging of the head and neck from the aortic arch to the skull vertex with out contrast and with intravenous contrast. Multiplanar and multisequence images were obtained. CONTRAST: Isovue 370 VOLUME: 100 mL One or more dose reduction techniques were used (e.g., Automated exposure control, adjustment of the mA and/or kV according to patient size, use of iterative reconstruction technique). RADIATION DOSE SUMMARY: CTDlvol: 18.5 mGy DLP: 828. 36 mGycm COMPARISON: Prior CT scan of the head done earlier in the day. FINDINGS: Prior CABG. Aortic Arch: Normal size and branching pattern. Mild atherosclerotic plaque. Brachiocephalic and Subclavians: Mild atherosclerotic plaque without significant stenosis. RIGHT Carotid: Right CCA: Mild calcified and soft plaque. Right ICA: Moderate calcified and soft plaque. Maximum stenosis (NASCET): 80 % Right ECA: Unremarkable. LEFT Carotid: Left CCA: Unremarkable. Left ICA: Moderate calcified and soft plaque. Maximum stenosis (NASCET): Greater than 90% % Left ECA: Unremarkable. Vertebrals: Codominant. Arise from the subclavians. Both vertebrals form the basilar. RIGHT Vertebral: Unremarkable. LEFT Vertebral: Unremarkable. Anatomy: [place] anatomy is normal. Aneurysm or avm: No intracranial aneurysms or large vascular malformations are identified. Anterior cerebral arteries: Unremarkable: Middle cerebral arteries: Unremarkable. Basilar artery: Unremarkable. Posterior cerebral arteries: Unremarkable. Other major branches of the posterior circulation: Unremarkable. Major venous structures: Unremarkable. CT/STROKE CTA Head AND Neck W/Con IMPRESSION: High-grade stenosis at the origin of the internal carotid arteries bilaterally worse on the left side. Reading Location: [place] [id number]
--- NOTE | 2025-02-18 14:29 | CT_ITS ---
EXAM: NONCONTRAST CT SCAN OF THE HEAD CLINICAL HISTORY: Neuro deficit, acute stroke COMPARISON: None TECHNIQUE: Serial axial series through the head were obtained without contrast. 2-D coronal and sagittal reformats were then obtained. FINDINGS: Brain: There is a 0.5 cm old lacunar infarct in the head of the caudate on the left. There is no acute large territorial infarct, intracranial hemorrhage, midline shift or mass effect. There are atherosclerotic vascular calcifications involving the bilateral carotid siphons. The sella and pineal gland regions appear unremarkable. There is no evidence of cerebellar tonsillar herniation. Ventricles: There is no acute hydrocephalus. Basilar cisterns are patent. Paranasal sinuses: Well-aerated Mastoid air cells: Well-aerated. Calvarium: The bony calvarium is intact. Orbits: The bilateral globes are symmetric, without retrobulbar compressive mass lesion or hemorrhage. CT/STROKE Brain/Head without Cont IMPRESSION: There is a 0.5 cm old lacunar infarct in the head of the caudate on the left. No acute intracranial pathology. Reading Location: [facility]
[2025-02-18] MEDS: 0.9% Normal Saline (1000mL) 1,000 ML 999 ML IV ×2 (14:57→17:09)
[2025-02-18 15:25] LABS: Squamous Epithelial Cells - UA 0 SEEN /hpf (0-5)
--- NOTE | 2025-02-18 15:33 | RAD_ITS ---
EXAM: XR Chest, 2 Views CLINICAL INDICATION: ALTERED MENTAL STATUS TECHNIQUE: Frontal and lateral views of the chest. COMPARISON: No relevant prior studies available. FINDINGS: LUNGS AND PLEURAL SPACES: Bibasilar atelectasis or pneumonia. Hyperlucent lungs. Flattening of the diaphragm. No pneumothorax. HEART: Unremarkable. No cardiomegaly. MEDIASTINUM: Unremarkable. Normal mediastinal contour. BONES/JOINTS: Unremarkable. No acute fracture. RAD/Chest PA and Lateral IMPRESSION: 1. Bibasilar atelectasis or pneumonia. 2. Suggestion of COPD. Reading Location[facility]
[2025-02-18 15:42] LABS: Troponin T High Sensitivity 20 ng/L (<=22)
[2025-02-18 15:44] LABS: ALB/GLOB Ratio 0.7 RATIO (0.9-2.4); AST(SGOT) 56 U/L (<=37); Alanine Aminotransfer ALT/SGPT 43 U/L (<=46); Albumin, Serum 2.7 g/dL (3.4-4.8); Alkaline Phosphatase 179 U/L (40-129); Anion Gap 13 (5-15); BUN 13 mg/dL (4-19); BUN/Creat Ratio 17.1 RATIO (10-20); Calcium,Total 8.6 mg/dL (7.6-11.0); Carbon Dioxide 19.9 mmol/L (21.0-32.0); Chloride 100 mmol/L (98-108); Creatinine, Serum 0.78 mg/dL (0.70-1.20); EST Glomerular Filtration Rate 95 (>60); Estimated Creatinine Clearance 105.31 ml/min (50-250); Glucose 201 mg/dL (70-99); Potassium 4.5 mmol/L (3.3-5.1); Protein, Total 6.7 g/dL (5.9-8.4); Sodium Level 133 mmol/L (133-145); Total Bilirubin 0.44 mg/dL (0.00-1.30)
[2025-02-18 15:48] LABS: Lactic Acid 1.3 mmol/L (0.0-2.0)
--- NOTE | 2025-02-18 15:56 | ED.RN ---
noted to be attempting to give pt water at the bedside. pt coughing after intake. educated on need for NPO at this time. angry with staff when educated. dr. barba notified
[2025-02-18 15:58] LABS: Hematocrit 33.4 % (40-54); Hemoglobin 11.2 g/dL (13.0-16.5); Mean Corp Hgb Conc 33.5 g/dL (32-36); Mean Corpuscular Hgb 30.1 pg (27.0-32.0); Mean Corpuscular Volume 89.8 fL (80-94); Mean Platelet Vol. 9.3 fl (6.2-12.0); Platelet Count 270 K/mm3 (150-450); RBC Distribution Width CV 13.9 % (11.6-14.6); RBC Distribution Width SD 45.4 fl (35.1-43.9); Red Blood Count 3.72 M/mm3 (4.6-6.2); White Blood Count 9.6 K/mm3 (4.4-11.0)
[2025-02-18 16:24] LABS: International Normalized Ratio 1.3; Prothrombin Time (Protime)PT. 16.1 SECONDS (11.7-14.9)
[2025-02-18 16:25] LABS: Partial Thromboplast Time 33.2 Seconds (24.1-36.2)
[2025-02-18 16:58] LABS: Color, Urine Yellow (Yellow); Glucose, Dipstick Normal (Normal); Ketone-Dipstick Negative (Negative); Leukocyte Esterase-Dipstick 25 /ul (Negative); Nitrite-Dipstick Negative (Negative); Occult Blood-Urine Negative /ul (Negative); Protein-Dipstick 30 mg/dl (Negative); Urine Bilirubin Dipstick Negative (Negative); Urine Clarity Clear (Clear); Urine Urobilinogen 1 mg/dl (Normal)
--- NOTE | 2025-02-18 17:06 | EX.ED.DYSGE1 ---
HPI History of Present Illness Chief Complaint: Stroke Alert Narrative Narrative: Chief complaint and HPI: Right upper extremity weakness, CVA. Past medical history obtained by medical record. Patient unable to answer questions secondary to aphasia. History obtained via EMS and significant other. 74-year-old male with past medical history of malignant neoplasm of the lung, COPD, DM, HLD, HTN, CAD with history of CABG who presents for evaluation of right upper extremity weakness/CVA. called EMS this afternoon as patient had right upper extremity weakness, was not acting normal, and not speaking. On EMS arrival, patient had right sided upper extremity weakness and deviation of eyes and therefore initiated stroke. Patient was immediately taken to the CT scanner on arrival after quick evaluation, NIH 9. Last known normal was originally unknown. shortly arrived and patient's last known normal was 8 PM. She is a poor historian. She states that she does not know if he was not speaking or had right upper extremity weakness earlier this morning when she saw him. On chart review, patient is on Eliquis. does not know if he is taking this or not. Patient is aphasic and therefore cannot answer questions. She denies any fever, shortness of breath, chest pain, Ramon pain, nausea, vomiting. Review of systems: See HPI Medications: As listed on the chart Allergies: As listed on the chart PFSH: Per chart Vital signs: As listed on the chart. Reviewed. Physical exam: Gen: Alert, unable to assess orientation as patient is aphasic, NAD, smells of urine Head: Normocephalic, atraumatic Eyes: No sclera icterus, conjunctiva clear, PERRL, does not cross midline with his eyes-left gaze ENT: Moist mucous membranes, difficult to assess asymmetry as patient does not fully follow commands however does not appear to be asymmetric Neck: Trachea midline, No JVD CV: RRR, no murmurs Resp: Lungs CTA BL but diminished in the right base, no w/r/c GI: Abd soft, non-distended, non-tender, no r/r/g Musc: Right upper extremity contracted -will not lift it up on command however if you lift it up will keep it up but has drift, will follow commands with the rest of the extremities although has drift with right lower extremity compared to left. Does not fully follow commands to assess ataxia. Skin: Warm, dry Neuro: Aphasic, nods yes that it is difficult to find his words and speak, NIH 9 PFSH PFSH Medical History Malignant neoplasm of middle lobe, bronchus or lung Fatigue Hypotension Acquired immunocompromised state Parapneumonic effusion Pneumonia Acute respiratory insufficiency Non-small cell cancer of right lung Tachycardia Dehydration Shortness of breath at rest Wears glasses Wears dentures Alcohol use History of steroid therapy Insulin dependent diabetes mellitus High cholesterol Back pain Syncope Dietary restriction Heartburn CPAP (continuous positive airway pressure) dependence Cancer On home oxygen therapy Chronic cough Leg cramps History of edema History of echocardiogram History of stress test Cardiology follow-up encounter Coag negative Staphylococcus bacteremia Hypoxia Acute hypoxemic respiratory failure Pulmonary embolism Pleural effusion Pneumonia Adenocarcinoma of right lung COPD (chronic obstructive pulmonary disease) Former smoker Diabetes Home Medications ?Medication ?Instructions ?Recorded ?Last Taken ?Type albuterol sulfate 2.5 mg/3 mL 2.5 mg inhalation Q6H PRN 05/02/18 06/27/24 History (0.083 %) solution for nebulization shortness of breath or wheezing aspirin 81 mg tablet,delayed 81 mg PO DAILY heart health 05/02/18 07/06/24 History release furosemide 40 mg tablet 40 mg PO BID diuretic 05/02/18 07/04/24 History Held on 07/22/24. Instructions: Order Changed simvastatin 80 mg tablet 80 mg PO QHS cholesterol 05/02/18 07/06/24 History insulin human U-100 NPH-regulr 1 sliding scale dose subcut BID 08/07/18 07/04/24 History 70-30 mix 100 unit/mL subcutaneous diabetes susp (Novolin 70/30 U-100 Insulin) semaglutide 2 mg/dose (8 mg/3 mL) 2 mg subcut SA diabetes 05/06/24 07/03/24 History subcutaneous pen injector (Ozempic) Symbicort 80 mcg-4.5 mcg/actuation 2 inh inhalation BID breathing #3 05/13/24 07/06/24 Rx HFA aerosol inhaler ea (budesonide-formoterol) tiotropium bromide 18 mcg capsule 1 cap inhalation DAILY breathing 05/13/24 07/06/24 Rx with inhalation device (Spiriva #90 inhalations with HandiHaler) albuterol sulfate 90 mcg/actuation 2 puff inhalation Q4H PRN 05/20/24 07/07/24 Rx aerosol inhaler (Ventolin HFA) shortness of breath or wheezing #18 grams apixaban 5 mg tablet (Eliquis) 5 mg PO BID blood thinner 07/07/24 07/06/24 History bupropion HCl 150 mg 24 hr tablet, 150 mg PO DAILY mental health 07/07/24 07/06/24 History extended release losartan 50 mg tablet 50 mg PO DAILY blood pressure 07/07/24 06/22/24 History Held on 07/22/24. Instructions: Order Changed metformin 1,000 mg tablet 1,000 mg PO BID diabetes 07/07/24 06/30/24 History hydroxyzine HCl 25 mg tablet 25 mg PO QHS 07/22/24 Unknown History metoprolol succinate 25 mg 25 mg PO QDAY 12/22/24 Unknown History tablet,extended release 24 hr Allergy/AdvReac Type Severity Reaction Status Date / Time No Known Allergies Allergy Verified 02/11/25 13:09 Family History Father Heart disease Diabetes Brother Cancer Throat Grandmother Breast cancer Surgical History History of coronary artery stent placement Hx of surgical biopsy S/P CABG x 3 Social History Smoking Status: Former smoker pack-years: 55 Tobacco: How many years used: 35 how long ago did patient quit smokin second hand exposure: Yes alcohol intake: current alcohol intake frequency: holidays/special occasions only Alcohol type: beer substance use type: does not use caffeine: Yes what type of physical activity do you participate in: none EXAM Physical Exam Const Vital Signs: 02/18/25 14:26 02/18/25 14:29 02/18/25 14:29 Temperature 98.4 F Temperature Source Temporal Pulse Rate 108 H 110 H Respiratory Rate 16 21 H Blood Pressure 123/74 H 123/79 H Blood Pressure Mean 90 93 Pulse Ox 97 99 Oxygen Delivery Method Nasal Cannula Nasal Cannula Nasal Cannula Oxygen Flow Rate (L/min) 2 02/18/25 14:48 02/18/25 14:58 02/18/25 14:59 Temperature Temperature Source Pulse Rate 111 H 110 H Respiratory Rate 20 H 28 H Blood Pressure 143/60 H 117/80 Blood Pressure Mean 87 92 Pulse Ox 97 95 98 Oxygen Delivery Method Nasal Cannula Nasal Cannula Oxygen Flow Rate (L/min) 2 02/18/25 15:29 02/18/25 16:00 02/18/25 17:05 Temperature Temperature Source Pulse Rate 116 H 113 H Respiratory Rate 22 H 22 H Blood Pressure 125/74 H 103/70 Blood Pressure Mean 91 81 Pulse Ox 94 95 97 Oxygen Delivery Method Nasal Cannula Nasal Cannula Oxygen Flow Rate (L/min) 2 MDM MDM MDM Narrative Medical decision making narrative: 74-year-old male with past medical history of malignant neoplasm of the lung, COPD, DM, HLD, HTN, CAD with history of CABG who presents for evaluation of right upper extremity weakness/CVA. See HPI. Patient is aphasic and therefore poor historian. Significant other is also poor historian. Patient possibly on Eliquis. Last known normal 8 PM yesterday. NH 9. Patient taken immediately to the CT scanner for stroke workup. He is outside the window for tPA/LVO. We originally did not know the last known normal. Differential diagnosis also includes but is not limited to intracranial bleed, electrolyte abnormality, UTI. CT head shows a 0.5 cm old lacunar infarct in the head of the caudate on the left. No acute intracranial pathology. CTA head and neck shows high-grade stenosis at the origin of the internal carotid arteries bilaterally worse on the left side. Patient was evaluated by [facility] neurology Dr. Tomas. Recommended transfer to [facility] facility. Recommends monitoring blood pressure. Agrees no acute intervention at this time. Patient failed bedside swallow. Chest x-ray was personally reviewed and interpreted by me, ED physician. Patient has known right-sided lung mass. Similar to prior. Bibasilar atelectasis. Radiology in agreement. EKG was personally reviewed interpreted by me, ED physician. Sinus tachycardia with loss of artifact. Heart rate 110. CBC without leukocytosis. Patient has baseline anemia of 11.2. INR unremarkable. CMP without significant electrolyte abnormality or SHARMIN. Patient has AST elevated at 56 and alkaline phosphatase of 179. Nontender on physical exam of the abdomen. Lactic acid unremarkable. Troponin unremarkable. UA negative for UTI. Patient will be transferred to [facility] emergency department. Patient's blood pressure originally in the 120s now drifting down to the low 100s. I did contact neurology. Recommend giving another NS bolus. Keep SBP greater than 90. No need for pressures for blood pressure. and patient updated of all results. 45 minutes of critical care time utilized in managing the patient. This is due to high probability of and deterioration of the patient based on the patient's condition and excludes any separately billable procedures. Impression: 1. Suspected CVA due to right-sided weakness and aphasia 2. High-grade stenosis at the origin of the internal carotid arteries bilaterally 3. History of malignant lung cancer 4. Chronic anemia Lab Data Labs: Laboratory Results - last 24 hr 02/18/25 02/18/25 02/18/25 14:29 14:36 14:36 WBC Cancelled Corrected WBC Cancelled RBC Cancelled Hgb Cancelled Hct Cancelled MCV Cancelled MCH Cancelled MCHC Cancelled RDW Std Deviation Cancelled RDW Coeff of Ino Cancelled Plt Count Cancelled MPV Cancelled Immature Gran % (Auto) Cancelled Neut % (Auto) Cancelled Lymph % (Auto) Cancelled [place] % (Auto) Cancelled Eos % (Auto) Cancelled Baso % (Auto) Cancelled Absolute Neuts (auto) Cancelled Absolute Lymphs (auto) Cancelled Total Counted Cancelled Neutrophils % (Manual) Cancelled Band Neutrophils % Cancelled Lymphocytes % (Manual) Cancelled Monocytes % (Manual) Cancelled Eosinophils % (Manual) Cancelled Basophils % (Manual) Cancelled Metamyelocytes % Cancelled Myelocytes % Cancelled Promyelocytes % Cancelled Blast Cells % Cancelled Plasma Cell % (Manual) Cancelled Other Cells % Cancelled Nucleated RBC % Cancelled Nucleated RBCs/100 WBC Cancelled Differential Comment Cancelled Diff Path Review Cancelled Hypersegmented Neuts Cancelled Atypical Lymphocytes Cancelled Reactive Lymphocytes Cancelled Smudge Cells Cancelled Toxic Granulation Cancelled Toxic Vacuolation Cancelled Dohle Bodies Cancelled Saritha Rods Cancelled Platelet Estimate Cancelled Plt Morphology Comment Cancelled RBC Morphology Cancelled Cancelled Polychromasia Cancelled Hypochromasia Cancelled Basophilic Stippling Cancelled Anisocytosis Cancelled Microcytosis Cancelled Macrocytosis Cancelled Spherocytes Cancelled Sickle Cells Cancelled Target Cells Cancelled Tear Drop Cells Cancelled Ovalocytes Cancelled Stomatocytes Cancelled [place] Bodies Cancelled Cumming Cells Cancelled Bite Cells Cancelled Crenated Cell Cancelled Acanthocytes (Spur) Cancelled Rouleaux Cancelled Schistocytes Cancelled PT Cancelled INR Cancelled APTT Cancelled Sodium 133 Potassium 4.5 Chloride 100 Carbon Dioxide 19.9 L Anion Gap 13 BUN 13 Creatinine 0.78 Estim Creat Clear Calc 105.31 Est GFR (MDRD) Non-Af 95 BUN/Creatinine Ratio 17.1 Glucose 201 H Lactic Acid Calcium 8.6 Total Bilirubin 0.44 AST 56 H ALT 43 Alkaline Phosphatase 179 H Troponin T High Sens 20 Total Protein 6.7 Albumin 2.7 L Globulin 4.0 Albumin/Globulin Ratio 0.7 L Urine Color Urine Clarity Urine pH Ur Specific [place] Urine Protein Urine Glucose (UA) Urine Ketones Urine Occult Blood Urine Nitrite Urine Bilirubin Urine Urobilinogen Ur Leukocyte Esterase 02/18/25 02/18/25 02/18/25 14:55 15:15 15:45 WBC 9.6 Corrected WBC RBC 3.72 L Hgb 11.2 L Hct 33.4 L MCV 89.8 MCH 30.1 MCHC 33.5 RDW Std Deviation 45.4 H RDW Coeff of Ino 13.9 Plt Count 270 MPV 9.3 Immature Gran % (Auto) Neut % (Auto) Lymph % (Auto) [place] % (Auto) Eos % (Auto) Baso % (Auto) Absolute Neuts (auto) Absolute Lymphs (auto) Total Counted Neutrophils % (Manual) Band Neutrophils % Lymphocytes % (Manual) Monocytes % (Manual) Eosinophils % (Manual) Basophils % (Manual) Metamyelocytes % Myelocytes % Promyelocytes % Blast Cells % Plasma Cell % (Manual) Other Cells % Nucleated RBC % Nucleated RBCs/100 WBC Differential Comment Diff Path Review Hypersegmented Neuts Atypical Lymphocytes Reactive Lymphocytes Smudge Cells Toxic Granulation Toxic Vacuolation Dohle Bodies Saritha Rods Platelet Estimate Plt Morphology Comment RBC Morphology Polychromasia Hypochromasia Basophilic Stippling Anisocytosis Microcytosis Macrocytosis Spherocytes Sickle Cells Target Cells Tear Drop Cells Ovalocytes Stomatocytes [place] Bodies Familia Cells Bite Cells Crenated Cell Acanthocytes (Spur) Rouleaux Schistocytes PT 16.1 H INR 1.3 APTT 33.2 Sodium Potassium Chloride Carbon Dioxide Anion Gap BUN Creatinine Estim Creat Clear Calc Est GFR (MDRD) Non-Af BUN/Creatinine Ratio Glucose Lactic Acid 1.3 Calcium Total Bilirubin AST ALT Alkaline Phosphatase Troponin T High Sens Total Protein Albumin Globulin Albumin/Globulin Ratio Urine Color Yellow Urine Clarity Clear Urine pH 6.0 Ur Specific [place] 1.010 Urine Protein 30 H Urine Glucose (UA) Normal Urine Ketones Negative Urine Occult Blood Negative Urine Nitrite Negative Urine Bilirubin Negative Urine Urobilinogen 1 H Ur Leukocyte Esterase 25 H Radiography Diagnostic Testing: Clinical Impression(s) from Imaging Studies Brain CT 02/18/25 14:29 IMPRESSION: There is a 0.5 cm old lacunar infarct in the head of the caudate on the left. No acute intracranial pathology. Reading [facility] Head/Neck CTA 02/18/25 14:29 IMPRESSION: High-grade stenosis at the origin of the internal carotid arteries bilaterally worse on the left side. [facility] Chest X-Ray 02/18/25 15:33 IMPRESSION: 1. Bibasilar atelectasis or pneumonia. 2. Suggestion of COPD. Reading Location: [facility] Discharge Plan Triage Chief Complaint: Stroke Alert ED Provider: Yoav Coffey Dx/Rx/DC Orders Prescriptions: No Action furosemide 40 mg tablet 40 mg PO BID albuterol sulfate 2.5 mg /3 mL (0.083 %) solution for nebulization 2.5 mg INHALATION Q6H PRN (Reason: shortness of breath or wheezing) simvastatin 80 mg tablet 80 mg PO QHS aspirin 81 mg tablet,delayed release (DR/EC) 81 mg PO DAILY Novolin 70/30 U-100 Insulin 100 unit/mL (70-30) suspension 1 sliding scale dose SC BID Protocol: 6. Sliding Scale Insulin Custom Condition: mg/dl range Dose/Route: NUMBER OF UNITS AT BREAKFAST Instruction: NUMBER OF UNITS AT DINNER Condition: 0-60 Dose/Route: 0 Instruction: 0 Condition: 60-80 Dose/Route: 10 Instruction: 22 Condition: 81-120 Dose/Route: 22 Instruction: 38 Condition: 121-180 Dose/Route: 24 Instruction: 40 Condition: 181-240 Dose/Route: 26 Instruction: 42 Condition: 241-300 Dose/Route: 28 Instruction: 44 Condition: 301-400 Dose/Route: 30 Instruction: 46 Condition: 401+ Dose/Route: 32 Instruction: 48 Protocol Text: Custom Sliding Scale PT TAKES SLIDING SCALE TWICE DAILY AT BREAKFAST AND DINNER. hydroxyzine HCl 25 mg tablet 25 mg PO QHS metoprolol succinate 25 mg tablet extended release 24 hr 25 mg PO QDAY Ozempic 2 mg/dose (8 mg/3 mL) pen injector 2 mg subcut SA losartan 50 mg tablet 50 mg PO DAILY metformin 1,000 mg tablet 1,000 mg PO BID bupropion HCl 150 mg tablet extended release 24 hr 150 mg PO DAILY Eliquis 5 mg Tablet 5 mg PO BID budesonide-formoterol [Symbicort] 80-4.5 mcg/actuation HFA aerosol inhaler 2 inh INHALATION BID Qty: 3 3RF Rx Instructions: 2 Puffs Inh BID j44.9 tiotropium bromide [Spiriva with HandiHaler] 18 mcg capsule, w/inhalation device 1 cap INHALATION DAILY Qty: 90 3RF albuterol sulfate [Ventolin HFA] 90 mcg/actuation HFA aerosol inhaler 2 puff INHALATION Q4H PRN (Reason: shortness of breath or wheezing) Qty: 18 11RF Primary Care Provider: Adalid Cross Referrals: Adalid Cross DO [Primary Care Provider] - Print Language: Angolan
[2025-02-18 17:44] LABS: Bacteria 1+ /hpf (None Seen); Hyaline Cast 0-5 SEEN /lpf (0-5); Red Blood Cells-Urine 0-5 SEEN /hpf (0-5)
[2025-02-18 17:45] LABS: Mucous, Urine 1+ /hpf (<or=2+); White Blood Cells 5-10 SEEN /hpf (0-5)
[2025-02-18 17:50] LABS: Troponin T High Sens 2 HR 21 ng/L (<=22)
== END 2025-02-18 18:08 | disposition short-term general hospital (02) ==
PROVIDERS: Emergency Provider Surgery; PCP Preventive Medicine Occupational Medicine; Visit Provider Surgery
DX: I65.23 Occlusion and stenosis of bilateral carotid arteries (principal); J44.9 Chronic obstructive pulmonary disease, unspecified; E11.9 Type 2 diabetes mellitus without complications; Z79.4 Long term (current) use of insulin; R47.01 Aphasia; D64.9 Anemia, unspecified; I10 Essential (primary) hypertension; Z11.52 Encounter for screening for COVID-19; R29.898 Other symptoms and signs involving the musculoskeletal system; E78.00 Pure hypercholesterolemia, unspecified; I25.10 Atherosclerotic heart disease of native coronary artery without angina pectoris; R29.709 NIHSS score 9; Z79.01 Long term (current) use of anticoagulants; Z79.82 Long term (current) use of aspirin; Z79.84 Long term (current) use of oral hypoglycemic drugs; Z79.899 Other long term (current) drug therapy; Z87.891 Personal history of nicotine dependence; Z79.85 Long-term (current) use of injectable non-insulin antidiabetic drugs; Z95.1 Presence of aortocoronary bypass graft; Z86.73 Personal history of transient ischemic attack (TIA), and cerebral infarction without residual deficits
CPT/HCPCS: 51702; 70450; 70496; 70498; 71046; 80053; 81001; 83605; 84484; 85027; 85610; 85730; 87086; 87631; 93005; 96360; 99285; Q9967; A4216

== ENCOUNTER 2025-03-04 10:22 | Inpatient (IN) | payer MEDICARE, SELFPAY ==
[2025-03-04 10:26] VITALS: BP 103/74; PULSE 98; RESP 16; TEMP 36.4; O2SAT 96; BMI 35.3
[2025-03-04 11:15] VITALS: PULSE 98; RESP 16; O2SAT 96
[2025-03-04 11:38] LABS: Bedside Glucose 161 mg/dL (74-106)
--- NOTE | 2025-03-04 11:55 | NURSING ---
Demolitionist Note; Activity Asset: Luisa Machuca was admitted after having stroke. He is able to answer yes no questions and was given communication pitcher sheets to use to help talk w/staff. was in room and helped answer his MDS and activity questions. They were both informed of weekly activities. Staff will remind him of weekly activities and respect his right to say no.
--- NOTE | 2025-03-04 12:14 | NURSING ---
Talked with nurse Santiago at Dr. Ayala's neurosurgery office, they scheduled angiogram for March 18 at 0845. Appt for 03/11/25 cancelled, not needed at this time. Sent e-mail to [facility] ambulance to see if they can approve transport for procedure on 03/18/25 at [facility].
[2025-03-04 16:40] LABS: Bedside Glucose 131 mg/dL (74-106)
--- NOTE | 2025-03-04 17:13 | RAD_ITS ---
PROCEDURE: CHEST PA AND LATERAL 03/04/2025 REASON FOR EXAM: ASPIRATION, COUGH YELLOW SPUTUM. TECHNIQUE: Frontal and lateral views of the chest. COMPARISON: 02/18/2025. FINDINGS: Prior sternotomy. The heart is enlarged. Right basilar consolidation suspicious for aspiration/pneumonia. Mild retrocardiac opacity which may represent atelectasis or additional aspiration/pneumonia. No significant pleural effusion. RAD/Chest PA and Lateral IMPRESSION: Right basilar consolidation suspicious for aspiration/pneumonia. Mild retrocardiac opacity which may represent atelectasis or additional aspirat ion/pneumonia. Reading Location: [place] [id number]
[2025-03-04] MEDS: metFORMIN HCl 1,000 MG Tablet 1000 MG PO (17:14)
--- NOTE | 2025-03-04 18:39 | NURSING ---
THIS NURSE WITH RN WENT TO PT ROOM TO TAKE PT FOR X RAY AND FOUND PT SITTING UP ON EDGE OF BED. ASKED PT WHAT HE NEEDED AND WHERE HE WAS GOING, PT STATED I DON'T KNOW. LEFT NOTE FOR DR. WELLINGTON FOR PA. RN AWARE
--- NOTE | 2025-03-04 20:31 | HP.PCM_ITS ---
HPI - General General Date of Admission: 03/04/25 Date of Service: 03/04/25 Chief Complaint: Here for rehabilitation. HPI Narrative ALEKS COSTELLO, is a 74 Male who presents with followin02/18/2025 [facility] ED stroke alert. Right upper extremity weakness, expressive aphasia, deviated eyes. NIHSS 9. CT head old left infarct, CTA head/neck showed severe bilateral carotid artery stenosis, left worse than right. Transfer to [facility] by squad. 02/18/2025 Admit [facility]. 02/19/2025 NIHSS increased overnight, repeat CT head showed evolution of stroke. Pulmonary consult for copd/congestion, treated with antibiotics, Lasix. Started Aspirin. Neurosurgery consulted for internal carotid artery stenosis, MRI brain pending. Insert Dobbhoff tube, start tubefeeding. 02/20/2025 Modified barium swallow completed, advance diet, de-escalate antibiotics, no history of atrial fibrillation. 02/21/2025 Blood pressure low, 250cc iv fluid bolus given, Hold Lasix, Remove Dobbhoff tube tomorrow if patient continues to eat well. 02/22/2025 Good oral intake, remove Dobbhoff tube, increase bowel regimen. 02/23/2025 Start Plavix for future DCA, sitting edge of bed. 02/25/2025 [facility]. 02/26/2025 Regular diet, possible DCA tomorrow with neurosurgery. 02/27/2025 DCA showed severe left internal carotid artery stenosis with intraluminal thrombus, too high risk to fix. Dual antiplatelet therapy for 2 weeks until DCA, continue high intensity statin. 02/28/2025 Discharge to [facility] for rehab. 03/04/2025 Admit to TCU with debility, here for rehabilitation, strengthening, prior to discharge home with . [facility] Medical History (Updated 03/04/25 @ 20:[address] Robby Salomon MD) Pulmonary embolism Malignant neoplasm of middle lobe, bronchus or lung Fatigue Hypotension Acquired immunocompromised state Parapneumonic effusion Pneumonia Acute respiratory insufficiency Non-small cell cancer of right lung Tachycardia Dehydration Shortness of breath at rest Wears glasses Wears dentures Alcohol use History of steroid therapy Insulin dependent diabetes mellitus High cholesterol Back pain Syncope Dietary restriction Heartburn CPAP (continuous positive airway pressure) dependence Cancer On home oxygen therapy Chronic cough Leg cramps History of edema History of echocardiogram History of stress test Cardiology follow-up encounter Coag negative Staphylococcus bacteremia Hypoxia Acute hypoxemic respiratory failure Pleural effusion Pneumonia Adenocarcinoma of right lung COPD (chronic obstructive pulmonary disease) Former smoker Diabetes Home Medications ?Medication ?Instructions ?Recorded ?Last Taken ?Type albuterol sulfate 2.5 mg/3 mL 2.5 mg inhalation Q6H TX N 05/02/18 06/27/24 History (0.083 %) solution for nebulization shortness of breat h or wheezing aspirin 81 mg tablet,delayed 81 mg PO DAILY heart heal th 05/02/18 07/06/24 History release furosemide 40 mg tablet 40 mg PO BID diuretic 07/04/24 History Held on 07/22/24. Instructions: Order Changed simvastatin 80 mg tablet 80 mg PO QHS cholesterol 06/1107/06/24 History insulin human U-100 NPH-regulr 1 sliding scale dose brice bcut BID 08/07/18 07/04/24 History 70-30 mix 100 unit/mL subcutaneous diabetes susp (Novolin 70/30 U-100 Insulin) semaglutide 2 mg/dose (8 mg/3 mL) 2 mg subcut SA diabe deniz 05/06/24 07/03/24 History subcutaneous pen injector (Ozempic) Symbicort 80 mcg-4.5 mcg/actuation 2 inh inhalation BI D breathing #3 05/13/24 07/06/24 Rx HFA aerosol inhaler ea (budesonide-formoterol) tiotropium bromide 18 mcg capsule 1 cap inhalation BRENNON LY breathing 05/13/24 07/06/24 Rx with inhalation device (Spiriva #90 inhalations with HandiHaler) apixaban 5 mg tablet (Eliquis) 5 mg PO BID blood thinn er 07/07/24 07/06/24 History bupropion HCl 150 mg 24 hr tablet, 150 mg PO DAILY [facility] 07/07/24 07/06/24 History extended release losartan 50 mg tablet 50 mg PO DAILY blood pressur e 07/07/24 06/22/24 History Held on 07/22/24. Instructions: Order Changed metformin 1,000 mg tablet 1,000 mg PO BID diabetes 06/30/24 History hydroxyzine HCl 25 mg tablet 25 mg PO QHS 07/22/24 Unk nown History metoprolol succinate 25 mg 25 mg PO QDAY BP/pulse 11/24 10/18 Unknown History tablet,extended release 24 hr acetaminophen 325 mg capsule 650 mg PO Q6H PRN pain Unknown History albuterol sulfate 90 mcg/actuation 1 puff inhalation Q 6H PRN 03/04/25 Unknown History aerosol inhaler (Ventolin HFA) shortness of breath or wheezing atorvastatin 80 mg tablet (Lipitor) 80 mg PO QHS suzanne sterol 03/04/25 Unknown History clopidogrel 75 mg tablet 75 mg PO DAILY antiplatelet 03/04/25 Unknown History mometasone-formoterol HFA 200 2 inh inhalation BID DROP MAN D 03/04/25 Unknown History mcg-5 mcg/actuation aerosol inhaler (Dulera) polyethylene glycol 3350 17 17 g PO DAILY PRN bowels 0 03/04/25 Unknown History gram/dose oral powder (Miralax) sennosides 17.2 mg tablet 17.2 mg PO DAILY bowels 02/22 10/18 Unknown History umeclidinium 62.5 mcg/actuation 1 inh inhalation DAILY COPD 03/04/25 Unknown History blister powder for inhalation (Incruse Ellipta) Allergy/AdvReac Type Severity Reaction Status Date / Time No Known Allergies Allergy Verified 02/11/25 13:09 Family History Father Heart disease Diabetes Brother Cancer Throat Grandmother Breast cancer Surgical History (Updated 03/04/25 @ 20:[address] Robby Salomon MD) History of coronary artery stent placement Hx of surgical biopsy S/P CABG x 3 Social History (Updated 03/04/25 @ 20:[address] Robby Salomon MD) household members: spouse Smoking Status: Former smoker pack-years: 55 Tobacco: How many years used: 35 how long ago did patient quit smokin second hand exposure: Yes alcohol intake: current alcohol intake frequency: holidays/special occasions only Alcohol type: beer substance use type: does not use caffeine: Yes what type of physical activity do you participate in: none ROS Constitutional Constitutional: Reports weakness; Denies chills, fever(s) or weight gain ENT HEENT: Denies headache(s), nasal congestion or nasal discharge Cardiovascular Cardiovascular: Denies chest pain or palpitations Respiratory/Chest Respiratory/Chest: Denies cough, excessive phlegm production or shortness of breath with exertion Gastrointestinal Gastrointestinal: Denies abdominal pain, nausea or vomiting Genitourinary Genitourinary: Denies dysuria Musculoskeletal Musculoskeletal: Denies joint pain or joint swelling Integumentary Integumentary: Denies rash or wounds Neurologic Neurologic: Denies focal weakness, numbness or tingling Psychiatric Psychiatric: Denies anxiety, auditory hallucinations, depression, homicidal ideation or suicidal ideation Vital Signs Vital Signs Vital Signs: 03/04/25 10:26 03/04/25 11:15 Temperature 97.5 F L Temperature Source Temporal Pulse Rate 98 98 Pulse Rhythm Regular Pulse Strength Normal (2+) Respiratory Rate 16 16 Respiratory Effort Normal Non-Labored Respiratory Depth Normal Respiratory Pattern Normal Blood Pressure 103/74 Blood Pressure Mean 83 Blood Pressure Source Monitor Pulse Ox 96 96 Oxygen Delivery Method Room Air Room Air Weight Weight: 116.612 kg Body Mass Index (BMI) 35.3 Physical Exam Const alert General Appearance: cooperative HEENT normocephalic Eyes PERRL and EOMs intact bilaterally Neck supple, no JVD and no carotid bruits Resp normal respiratory effort, normal air movement and clear to auscultation bilaterally Cardio regular rate and regular rhythm GI normal to inspection, nondistended, normoactive bowel sounds, non-tender and non-distended Extremity normal capillary refill General Extremity: Negative for edema Skin no rashes or lesions noted General Skin Exam: no breakdown Neuro Neuro Narrative: Dense right upper extremity hemiplegia, right lower extremity hemiparesis. Expressive aphasia present, right sided neglect. Speech: speech abnormal Psych affect normal Appearance: appropriate Results Lab / Micro Data Labs: Laboratory Results - last 24 hr 03/04/25 10:59: POC Glucose 161 H 03/04/25 16:21: POC Glucose 131 H Imaging Radiology Impression Chest X-Ray 03/04/25 17:13 IMPRESSION: Right basilar consolidation suspicious for aspiration/pneumonia. Mild retrocardiac opacity which may represent atelectasis or additional aspiration/pneumonia. Reading Location: [place] [id number] Assessment & Plan Assessment/Plan (1) Debility: (2) Stroke: (3) Right flaccid hemiplegia: (4) Left carotid artery stenosis: (5) Aspiration pneumonia: (6) Adenocarcinoma of right lung: (7) COPD (chronic obstructive pulmonary disease): (8) Type 2 diabetes mellitus with hyperglycemia: (9) Essential (primary) hypertension: (10) Hyperlipidemia, unspecified: (11) Coronary artery disease status post coronary stent insertion: (12) Depression: (13) Insomnia: (14) Pulmonary embolism: PLAN: Plan 74 year old male with below past medical history significant for recent lung cancer treated with chemoradiation, hospitalized for stroke with right upper extremity hemiplegia, complicated by severe left carotid artery stenosis, admitt ed to TCU with debility, here for rehabilitation, strengthening, prior to discharge home with . * Debility - PT/OT. * Dysphagia - ST. * Pain - Tylenol 1000mg q6 prn pain (1-10). * Bowel - Miralax 17gm daily prn, senna/colace 1 tablet bid, Magnesium citrate 300mL daily prn. * Adult immunization - Administer pneumonia vaccine, covid vaccine, flu vaccine as appropriate. * DVT prophylaxis - Hold, on dapt. * COPD - Fluticasone/Salmeterol 1 puff q12, Incruse 1 puff daily, Albuterol 1 puff q6 prn. * Stroke with right hemiplegia - Aspirin 81mg daily, Plavix 75mg daily. * Severe left carotid artery stenosis - Consult Dr. Almodovar/Sharon Webb, resident does not to go back to [facility] due to travel distance. Carotid duplex ordered. * Hyperlipidemia - Atorvastatin 80mg qhs. * Aspiration pneumonia - Chest X-ray done, Clindamycin 450mg po tid x 7 days. * Skin irritation - Calmoseptine topical bid. * Diabetes Mellitus II - Metformin 1000mg bidcm. * Coronary artery disease s/p stent - Metoprolol succinate 25mg daily, Plavix 75mg daily, Aspirin 81mg dailyl * Tinea Corporis - Nystatin powder topical bid. * Lung cancer - Dr. Baum. The following psychotropic medication was present on admission: Bupropion 150mg bid. Psychotropic medication therapy is indicated for a diagnosis of: Major Depression. Based on my clinical evaluation, continuation of the medication is necessary at this time. Gradual dose reduction plan (select one): ____ GDR will be attempted. Will monitor patient symptoms and behaviors in response to GDR. __x__ GRD contraindicated. Reason contraindicated: stable chronic use.
[2025-03-04] MEDS: Clindamycin HCl 150 MG Capsule 450 MG PO (21:21)
[2025-03-04] MEDS: Atorvastatin Calcium 80 MG Tablet PO (21:21)
[2025-03-04] MEDS: buPROPion (XL) 150 MG TABLET.XL PO (21:22)
[2025-03-04] MEDS: Senna/Docusate Sodium 1 Tablet PO (21:22)
[2025-03-04] MEDS: Fluticasone/Salmeterol 232-14 Inhaler 1 PUFF INHALATION (21:23)
[2025-03-04 21:44] LABS: Bedside Glucose 130 mg/dL (74-106)
[2025-03-05 06:22] LABS: Bedside Glucose 131 mg/dL (74-106)
[2025-03-05] MEDS: Clindamycin HCl 150 MG Capsule 450 MG PO ×3 (06:31→20:39)
--- NOTE | 2025-03-05 08:08 | PCM.PN.DRR ---
Documented by User: Haydee Cabrera 03/05/25 08:53 TCU RX Drug Regimen Review Subjective/Objective Subjective/Objective Subjective: 74 YOM admitted to TCU 03/04/25 s/p hospitalization at an outside facility for stroke/ coronary artery stenosis.Hospitalization complicated by hemiplegia with the need for a Dobbhoff tube which was removed during hospitalization secondary to good oral intake. Admitted to TCU for strengthening and rehabilitation prior to discharge home where he resides with his . Objective: Allergies No Known Allergies Allergy (Verified 02/11/25 13:09) Current Medications Generic Name Dose Route Start Last Admin Trade Name Freq PRN Reason Stop Dose Admin Acetaminophen 1,000 mg 03/04/25 20:35 Acetaminophen 500 Mg Tablet PO Q6H PRN Pain Score 1-10 Albuterol Sulfate 1 puff 03/04/25 11:27 Albuterol Ih (6.7 Gm) 1 Puff Inhaler INHALATION Q6H PRN shortness of breath or wheezing Aspirin 81 mg 03/05/25 08:00 Aspirin E.C. 81 Mg Tablet PO BREAKFAST BETH Atorvastatin Calcium 80 mg 03/04/25 22:00 03/04/25 21:21 Atorvastatin Calcium 80 Mg Tablet PO 80 mg QHS BETH Administration Bupropion HCl 150 mg 03/04/25 22:00 03/04/25 21:22 Bupropion (Xl) 150 Mg Tablet.Xl PO 150 mg BID BETH Administration Calamine/Phenol 1 applic 03/04/25 22:00 03/04/25 22:13 Menthol/Lanolin/Calamine/Znox 113 Gm Tube TOPICAL Not Given BID BETH Protocol Clindamycin HCl 450 mg 03/04/25 22:00 03/05/25 06:31 Clindamycin Hcl 150 Mg Capsule PO 03/11/25 22:01 450 mg TID BETH Administration Clopidogrel Bisulfate 75 mg 03/05/25 10:00 Clopidogrel Bisulfate 75 Mg Tablet PO DAILY BETH Magnesium Citrate 300 ml 03/04/25 15:04 Magnesium Citrate 300 Ml PO DAILY PRN CONSTIPATION Metformin HCl 1,000 mg 03/04/25 17:00 03/04/25 17:14 Metformin Hcl 1,000 Mg Tablet PO 1,000 mg BIDCM BETH Administration Metoprolol Succinate 25 mg 03/05/25 10:00 Metoprolol(Xl)Succ 25 Mg Tablet PO DAILY [facility] Protocol Nystatin 1 applic 03/04/25 22:00 03/04/25 22:13 Nystatin Powder 15gm Bottle TOPICAL Not Given BID [facility] Protocol Polyethylene Glycol 17 gm 03/04/25 11:28 Polyethylene Glycol 3350 17 Gm Packet PO DAILY PRN bowels Fluticasone/Salmeterol 1 puff 03/04/25 22:00 03/04/25 21:23 Fluticasone/Salmeterol 232-14 Inhaler INHALATION 1 puff Q12 BETH Administration Senna/Docusate Sodium 1 tablet 03/04/25 22:00 03/04/25 21:22 Senna/Docusate Sodium 1 Tablet PO 1 tablet BID BETH Administration Sodium Chloride 10 - 40 ml 03/04/25 10:51 0.9% Saline Lock 10 Ml Syringe IV UD PRN SALINE FLUSH Tuberculin PPD 0.1 ml 03/05/25 10:00 Tuberculin,Purif.Prot.Deriv. 50 Tu/Ml Vial ID 03/05/25 10:01 X1 ONE Tuberculin PPD 0.1 ml 03/12/25 10:00 Tuberculin,Purif.Prot.Deriv. 50 Tu/Ml Vial ID 03/12/25 10:01 X1 ONE Umeclidinium [place] 1 puff 03/05/25 10:00 Umeclidinium [place] Inhaler INHALATION DAILY [facility] Problem List Pulmonary embolism (Acute) Insomnia (Acute) Depression (Acute) Coronary artery disease status post coronary stent insertion (Acute) Hyperlipidemia, unspecified (Acute) Essential (primary) hypertension (Acute) Type 2 diabetes mellitus with hyperglycemia (Acute) Aspiration pneumonia (Acute) Left carotid artery stenosis (Acute) Right flaccid hemiplegia (Acute) Stroke (Acute) Debility (Acute) Adenocarcinoma of right lung (Chronic) COPD (chronic obstructive pulmonary disease) (Chronic) Vital Signs Temp Pulse Resp BP Pulse Ox O2 Del Method 97.5 F L 98 16 103/74 96 Room Air 03/04/25 10:26 03/04/25 11:15 03/04/25 11:15 03/04/25 10:26 03/04/25 11:15 03/05/25 05:58 Oxygen Delivery Method Room Air Weight: 116.612 kg Body Mass Index (BMI) 35.3 Assessment/Plan: 1. Pain: Tylenol 1000mg PO Q6h PRN Pain 1-10. Please continue to monitor for increased/decreased S/S pain, PRN medication usage, LFT with continued Tylenol usage. - The patient has not required any doses of PRN medication at this time. The patient's pain appears managed at this time. 2. Stroke/HLD/CAD: Aspirin 81mg PO daily, Lipitor 80mg PO QHS, Plavix 75mg PO Daily, Toprol XL 25mg PO Daily. Please continue to monitor for S/S bleeding/bruising, H/H (hgb 12.4, hct 37% on 03/05), lipid panel annually or sooner if clinically indicated (none on file), BP (last 103/74), pulse (last 98 BPM). 3. Aspiration pneumonia: Clindamycin 450mg PO TID thru 03/11. Please continue to monitor for resolution of infection, nausea/vomiting, diarrhea, stomach upset. 4. COPD: Airduo 1 puff BID, incruse 1 puff daily, albuterol inhaler 1 puff Q6h PRN. Please continue to monitor respiratory status, HR, S/S thrush with inhaler use, PRN medication usage, S/S COPD exacerbation. 5. Diabetes: Metformin 1000mg PO BID. Please continue to monitor blood glucose (last 168 on 03/05), A1c (none on file), GI upset, diarrhea. Please consider obtaining an A1c if clinically indicated (none on file), thank you. 6. Skin Integrity: Calmoseptine topically BID, Nystatin topically BID. Please continue to monitor for skin irritation, ulcer formation, skin redness. 7. Bowel: Senna/Docusate 1 tab PO BID, Miralax 17g PO Daily PRN, magnesium Citrate 300mL PO daily PRN. Please continue to monitor for increased/decreased constipation and/or diarrhea. If diarrhea develops, please discontinue scheduled medications, thank you. - The patient has not had a documented BM since admission (<24hrs ago). If the patient does not have a bowel movement in the next 48-72hrs, please consider administering PRN medications. Assessment/Plan for indications treated with psychotropic medications: 1. Depression: Bupropion XL 150mg PO BID. Monitor for anxiety, agitation and insomnia, seizure activity, nausea, appetite and body weight, headache, suicidal thoughts or behaviors (Boxed Warning). Monitor blood pressure and HR. BP range since admission = 97-103/73-74; HR range since admission = 98-108 BPM. Medication is renally eliminated, monitor renal function periodically. Scr = 0.88 on 03/05/25 Monitor for efficacy including resident symptoms, behaviors and indications of distress. Monitor for tolerability including mental status, cognition, excessive sleepiness, withdrawal or decreased participation in activities and decline in physical functioning. Maximize use of nonpharmacologic/behavioral interventions to facilitate dose reduction or discontinuation as appropriate. Please evaluate the appropriateness of GDR unless contraindicated. If appropriate, GDR should be attempted in 2 separate quarters within the first year of use or admission to TCU. If GDR attempted, monitor resident symptoms/behaviors. Medical chart and medication regimen reviewed. The following medication irregularities or issues were identified: 1. Lipitor 80mg PO QHS: Patient does not have a lipid panel on file. If clinically indicated, please consider obtaining a lipid panel, thank you. 2. Diabetes: Metformin 1000mg PO BID. Please consider obtaining an A1c if clinically indicated (none on file), thank you. Date Date of Note: 03/05/25 Documented by User: Dr. Robby Salomon MD 03/05/25 08:57 TCU RX Drug Regimen Review Provider Comments Provider responsibility Provider Comments to Recommendations by Pharmacy Agree
[2025-03-05 08:10] LABS: Absolute Lymphocyte Count 1.52 X10^3/uL (0.83-4.51); Absolute Neutrophil Count 6.8 X10^3/uL (2.0-7.7); Basophil# 0.06 X10^3/uL; Basophil% 0.6 % (0-1); Eosinophil# 0.47 X10^3/uL; Eosinophils% 4.7 % (0-5); Hemoglobin 12.4 g/dL (13.0-16.5); Lymphocyte # 1.52 X10^3/ul (0.83-4.51); Lymphocyte % 15.2 % (19-41); Mean Corp Hgb Conc 33.5 g/dL (32-36); Mean Corpuscular Volume 89.6 fL (80-94); Mean Platelet Vol. 9.1 fl (6.2-12.0); Monocyte# 1.06 X10^3/uL; Monocyte% 10.6 % (0-10); NRBC Flagged by Analyzer 0 % (0-5); Neutrophil # 6.81 X10^3/uL (2.7-7.7); Neutrophil % 67.8 % (47-70); Platelet Count 367 K/mm3 (150-450); RBC Distribution Width CV 15.2 % (11.6-14.6); RBC Distribution Width SD 48.4 fl (35.1-43.9); Red Blood Count 4.13 M/mm3 (4.6-6.2)
[2025-03-05] MEDS: metFORMIN HCl 1,000 MG Tablet 1000 MG PO ×2 (08:24→16:49)
[2025-03-05] MEDS: Aspirin E.C. 81 MG Tablet PO (08:24)
[2025-03-05] MEDS: Menthol/Lanolin/Calamine/Znox 113 GM Tube 1 APPLIC TOPICAL ×2 (08:25→20:49)
[2025-03-05] MEDS: Nystatin Powder 15gm Bottle 1 APPLIC TOPICAL ×2 (08:25→20:50)
[2025-03-05 08:26] LABS: Anion Gap 14 (5-15); BUN 17 mg/dL (4-19); BUN/Creat Ratio 19.1 RATIO (10-20); Calcium,Total 9.5 mg/dL (7.6-11.0); Carbon Dioxide 21.3 mmol/L (21.0-32.0); Chloride 99 mmol/L (98-108); Creatinine, Serum 0.88 mg/dL (0.70-1.20); EST Glomerular Filtration Rate 91 (>60); Estimated Creatinine Clearance 97.07 ml/min (50-250); Glucose 168 mg/dL (70-99); Potassium 4.4 mmol/L (3.3-5.1); Sodium Level 135 mmol/L (133-145)
[2025-03-05] MEDS: Clopidogrel Bisulfate 75 MG Tablet PO (08:26)
[2025-03-05] MEDS: buPROPion (XL) 150 MG TABLET.XL PO ×2 (08:27→20:38)
[2025-03-05] MEDS: Senna/Docusate Sodium 1 Tablet PO ×2 (08:27→20:39)
[2025-03-05] MEDS: Fluticasone/Salmeterol 232-14 Inhaler 1 PUFF INHALATION ×2 (08:28→20:49)
[2025-03-05] MEDS: Umeclidinium Bromide Inhaler 1 PUFF INHALATION (08:29)
[2025-03-05 08:36] VITALS: BP 97/73; PULSE 108; RESP 18; TEMP 36; O2SAT 96
[2025-03-05 11:12] VITALS: BP 110/58; PULSE 100
[2025-03-05] MEDS: Metoprolol(XL)Succ 25 MG Tablet PO (11:12)
[2025-03-05] MEDS: Tuberculin,Purif.prot.deriv. 50 TU/ML Vial 0.1 ML ID (11:14)
[2025-03-05 11:18] VITALS: BP 110/58
[2025-03-05 11:57] LABS: Bedside Glucose 141 mg/dL (74-106)
[2025-03-05 12:42] LABS: Bedside Glucose 160 mg/dL (74-106)
[2025-03-05 13:24] VITALS: O2SAT 99
--- NOTE | 2025-03-05 14:47 | CASEMGMT ---
Social Work SW phoned to obtain assessment information. Updated contact information. Discussed code status wishes for pt. confirms pt wishes to be a full code and then direct to living will. SW requested provide copies of advance directives to place on file. unsure where the documents could be located, stating pt knows and knows who the facility service manager was that completed the documents. SW encouraged to obtain that information and documents, as pt will be unable to manage affairs currently. SW explained [facility] insurance with [employer] 03/09 and continued stay is not guaranteed with each review. Broached pt may need additional therapy and stay at a SNF after DC from TCU, prior to home, and insurance does not cover that cost. expressed understanding. SW explored finances with . noted that pt has independent bank accounts, separate than shared accounts. SW also encouraged to begin navigating those accounts to manage for the future. shared pt and have resources, thus, SW concluded pt would not be eligible for Medicaid if SNF is needed. SW will continue to follow for DC planning and assistance. Nellie Berg MSW [employer]
--- NOTE | 2025-03-05 16:53 | NURSING ---
UPDATED AND PT ON RESULTS FROM CHEST X RAY,LABS AND CAROTID ULTA SOUND AND SPEECH THEARPY.
[2025-03-05 17:42] LABS: Bedside Glucose 126 mg/dL (74-106)
[2025-03-05] MEDS: Atorvastatin Calcium 80 MG Tablet PO (20:39)
[2025-03-05 21:55] LABS: Bedside Glucose 150 mg/dL (74-106)
[2025-03-06] MEDS: Clindamycin HCl 150 MG Capsule 450 MG PO ×3 (05:32→21:42)
[2025-03-06 06:37] LABS: Bedside Glucose 137 mg/dL (74-106)
[2025-03-06 06:44] LABS: Hemoglobin A1c 7.2 % (<=5.6)
[2025-03-06 09:29] VITALS: BP 108/48; PULSE 84; RESP 18; TEMP 36.8; O2SAT 96
[2025-03-06] MEDS: Menthol/Lanolin/Calamine/Znox 113 GM Tube 1 APPLIC TOPICAL ×2 (10:37→21:42)
[2025-03-06] MEDS: Nystatin Powder 15gm Bottle 1 APPLIC TOPICAL ×2 (10:37→21:41)
[2025-03-06] MEDS: Fluticasone/Salmeterol 232-14 Inhaler 1 PUFF INHALATION (10:38)
[2025-03-06] MEDS: buPROPion (XL) 150 MG TABLET.XL PO ×2 (10:38→21:41)
[2025-03-06] MEDS: Umeclidinium Bromide Inhaler 1 PUFF INHALATION (10:38)
[2025-03-06] MEDS: Senna/Docusate Sodium 1 Tablet PO ×2 (10:39→21:41)
[2025-03-06] MEDS: Aspirin E.C. 81 MG Tablet PO (10:39)
[2025-03-06] MEDS: Clopidogrel Bisulfate 75 MG Tablet PO (10:39)
[2025-03-06] MEDS: metFORMIN HCl 1,000 MG Tablet 1000 MG PO ×2 (10:39→15:56)
[2025-03-06 10:42] VITALS: BP 88/58; PULSE 60
[2025-03-06 11:47] LABS: Bedside Glucose 145 mg/dL (74-106)
--- NOTE | 2025-03-06 13:30 | NURSING ---
notified dr littlejohn pt orthostatic sittin b/p 99/72 [id number]. put in orders for bolus
[2025-03-06 13:41] LABS: Cholesterol 122 mg/dL (<=200); High Density Lipoprotein 45 mg/dL; Low Density Lipoprotein Calc. 57 mg/dL; Triglycerides 100 mg/dL; Very Low Density Lipoprotein 20 mg/dL (5-40); cholesterol:hdl ratio screen 2.74
[2025-03-06] MEDS: 0.9% Normal Saline (1000mL) 1,000 ML 999 ML IV (15:56)
[2025-03-06 16:38] LABS: Bedside Glucose 157 mg/dL (74-106)
[2025-03-06 20:20] VITALS: PULSE 110; O2SAT 94
[2025-03-06] MEDS: guaiFENesin Dm 10 ML UDC 15 ML PO (21:36)
[2025-03-06 21:45] LABS: Bedside Glucose 151 mg/dL (74-106)
--- NOTE | 2025-03-06 23:59 | RAD_ITS ---
PROCEDURE: CHEST PA AND LATERAL 03/07/2025 REASON FOR EXAM: COUGH, RHONCHI, HEMOPTYSIS TECHNIQUE: CHEST PA AND LATERAL COMPARISON: 03/04/2025. FINDINGS: Unremarkable median sternotomy wires. Unchanged right basilar consolidation. Unchanged bilateral basilar atelectatic changes/airspace disease. There is no demonstrated pleural abnormality. Enlarged cardiac silhouette. Normal mediastinum and katrin. Normal visualized pulmonary arteries. Atheromatous plaques of the visualized aortic arch and descending thoracic aorta. Diffuse spondylosis of the visualized thoracic spine. Normal visualized ribs, clavicles. Degenerative joint disease. There is no demonstrated abnormality of the visualized soft tissue structures of the upper abdomen. RAD/Chest PA and Lateral IMPRESSION: Unremarkable median sternotomy wires. Unchanged right basilar consolidation. Unchanged bilateral basilar atelectatic changes/airspace disease. Reading [facility] [address]
--- NOTE | 2025-03-07 00:11 | NURSING ---
Pt has a persistent, strong, dry cough resulting in emesis x1. Denies nausea after emesis. N.O. from Dr. Salomon via backline for Robitussin DM 15mls Q4H PRN, and administered per order. Pt cough continues without relief 2 hours after PRN Robitussin DM administration and had another episode of emesis with brown sputum with small amount of bright red blood. Vitals WNL, rhonchi heard in posterior and anterior R upper and lower lobes. Dr. Salomon called and updated and new orders received for a STAT chest xray and to d/c Robitussin DM and add Robitussin AC 15mls Q4H PRN. Pt denies further needs at this time.
[2025-03-07] MEDS: guaiFENesin/Codeine 5 ML UDC 15 ML PO ×2 (01:38→06:15)
[2025-03-07 06:13] LABS: Bedside Glucose 151 mg/dL (74-106)
[2025-03-07] MEDS: Clindamycin HCl 150 MG Capsule 450 MG PO ×3 (06:15→20:40)
[2025-03-07] MEDS: 0.9% Saline Lock 10 ML Syringe IV ×3 (06:15→20:41)
[2025-03-07] MEDS: Umeclidinium Bromide Inhaler 1 PUFF INHALATION (07:54)
[2025-03-07] MEDS: Menthol/Lanolin/Calamine/Znox 113 GM Tube 1 APPLIC TOPICAL ×2 (07:54→20:42)
[2025-03-07] MEDS: Fluticasone/Salmeterol 232-14 Inhaler 1 PUFF INHALATION ×2 (07:54→20:40)
[2025-03-07] MEDS: buPROPion (XL) 150 MG TABLET.XL PO ×2 (07:55→20:41)
[2025-03-07] MEDS: Clopidogrel Bisulfate 75 MG Tablet PO (07:57)
[2025-03-07] MEDS: Senna/Docusate Sodium 1 Tablet PO ×2 (07:57→20:41)
[2025-03-07] MEDS: Nystatin Powder 15gm Bottle 1 APPLIC TOPICAL ×2 (07:59→20:41)
[2025-03-07] MEDS: metFORMIN HCl 1,000 MG Tablet 1000 MG PO ×2 (08:00→17:44)
[2025-03-07] MEDS: Aspirin E.C. 81 MG Tablet PO (08:11)
[2025-03-07 10:32] VITALS: PULSE 99
[2025-03-07] MEDS: Metoprolol(XL)Succ 25 MG Tablet 12.5 MG PO (10:32)
[2025-03-07 11:36] LABS: Bedside Glucose 171 mg/dL (74-106)
[2025-03-07 15:28] VITALS: BP 109/62; PULSE 76; RESP 18; TEMP 36.9; O2SAT 97
--- NOTE | 2025-03-07 15:46 | NURSING ---
Left msg for weekend speech team for reevaluation. Continues to cough. Cxray this morning was unremarkable. Dr Salomon aware
[2025-03-07 16:37] LABS: Bedside Glucose 149 mg/dL (74-106)
[2025-03-07 20:58] VITALS: RESP 20
--- NOTE | 2025-03-07 21:04 | NURSING ---
Small episode of regurgitation/emesis observed during HS medication administration. Emesis clear, mostly water. Patient has persistent cough, struggles to swallow. Possible aspiration during meals per dayshift report. Patient belching and regurgitating following med administration. Speech consulted, dayshift RN left voicemail. Dr. Salomon aware. Another written communication left for Dr. Salomon.
[2025-03-07 21:19] LABS: Bedside Glucose 130 mg/dL (74-106)
--- NOTE | 2025-03-08 00:26 | NURSING ---
Upon rounding, moderate emesis- brown in color, observed on patient's gown and pillow. Patient did not utilize call ibarra or call out for assistance. Pill found in patient's bed, disposed appropriately. Patient coughing persistently. sales promotion representative and this nurse cleaned patient up and changed linens and gown. Patient's HOB elevated. Patient denies further assistance. Call light in reach.
[2025-03-08] MEDS: Clindamycin HCl 150 MG Capsule 450 MG PO (06:25)
[2025-03-08 06:30] LABS: Bedside Glucose 146 mg/dL (74-106)
--- NOTE | 2025-03-08 07:41 | NURSING ---
Pt continues to have persistent cough, fine crackles to b/l lower lobes rhonchi to b/l upper lobes. Patient aspirating with medi administration x3 episodes of moderate emesis last night brown in color. Have tried pills crushed in pudding and pt unable to swallow. Speech is consulted and voicemail left to reassess swallowing. N.O. received to make pt NPO and start d5w 1/2NS @ 75ml/hr. Orders read back.
[2025-03-08] MEDS: Dext 5%-0.45% NS 1,000 ML 75 ML IV ×2 (07:56→21:07)
[2025-03-08] MEDS: Menthol/Lanolin/Calamine/Znox 113 GM Tube 1 APPLIC TOPICAL ×2 (07:58→21:10)
[2025-03-08] MEDS: Nystatin Powder 15gm Bottle 1 APPLIC TOPICAL ×2 (07:58→21:10)
[2025-03-08] MEDS: Umeclidinium Bromide Inhaler 1 PUFF INHALATION (07:59)
[2025-03-08] MEDS: Fluticasone/Salmeterol 232-14 Inhaler 1 PUFF INHALATION (08:01)
[2025-03-08] MEDS: 0.9% Saline Lock 10 ML Syringe IV (08:03)
[2025-03-08 08:26] VITALS: BP 101/57; PULSE 107; RESP 18; TEMP 37.2; O2SAT 93
[2025-03-08 11:35] LABS: Bedside Glucose 180 mg/dL (74-106)
[2025-03-08] MEDS: Ampicillin/Sulbactam 3 GM in 0.9% Normal Saline (100mL MB+) 100 ML IV ×3 (11:53→23:30)
[2025-03-08 16:40] LABS: Bedside Glucose 171 mg/dL (74-106)
[2025-03-08 21:43] LABS: Bedside Glucose 159 mg/dL (74-106)
[2025-03-09] MEDS: Ampicillin/Sulbactam 3 GM in 0.9% Normal Saline (100mL MB+) 100 ML IV ×3 (05:30→18:14)
[2025-03-09 06:21] LABS: Bedside Glucose 156 mg/dL (74-106)
[2025-03-09] MEDS: Menthol/Lanolin/Calamine/Znox 113 GM Tube 1 APPLIC TOPICAL ×2 (08:49→21:31)
[2025-03-09] MEDS: Nystatin Powder 15gm Bottle 1 APPLIC TOPICAL ×2 (08:50→21:31)
[2025-03-09] MEDS: Umeclidinium Bromide Inhaler 1 PUFF INHALATION (08:51)
[2025-03-09] MEDS: Fluticasone/Salmeterol 232-14 Inhaler 1 PUFF INHALATION ×2 (08:51→21:31)
--- NOTE | 2025-03-09 08:53 | NURSING ---
Offered covid vaccine, VIS provided. Resident declines.
[2025-03-09 08:59] VITALS: BP 140/89; PULSE 95; RESP 18; TEMP 36.8; O2SAT 93
--- NOTE | 2025-03-09 10:59 | NURSING ---
PT LEFT FLOOR AT 1030 FOR COOKIE SWALLOW TEST. RETURNED TO FLOOR BY BED AT 11 AM.
--- NOTE | 2025-03-09 10:59 | ST.MBS ---
Modified Barium Swallow Patient Information Study Date: 03/09/25 Study Time: 10:30 Direct Billable Minutes: 120 Total Minutes procedure & reportin Diagnosis: I63.9 -CVA, C34.91 -Malignant neoplasm of unspecified part of... Referring Physician: Robby Salomon Chi Medical History: A 74-year-old male was evaluated by speech therapy following admission to the Transitional Care Unit (TCU) for rehabilitation after a CVA. He initially presented to the emergency department on 02/18/25 with right-sided weakness, expressive aphasia, and dysarthria. Imaging revealed an old left-sided infarct and severe bilateral carotid stenosis, more pronounced on the right. He was transferred to [facility], where further imaging confirmed stroke progression. A Dobhoff tube was placed due to NPO status, but following a modified barium swallow study (MBSS) on 02/20, he was gradually advanced to a regular oral diet by 02/26. A diagnostic cerebral angiogram on 02/27 showed severe left internal carotid stenosis with thrombus, but intervention was deemed too risky. The patient was discharged to a residential facility on 02/28 and admitted to [facility] TCU on 03/04. He continues to present with expressive aphasia and dysarthria. Nursing staff reported emesis after a meal and signs of aspiration pneumonia, including persistent cough, fine crackles in the lower lobes, and rhonchi in the upper lobes. He experienced three episodes of moderate, brown-colored emesis during medication administration and was unable to swallow crushed pills in pudding. As a result, speech therapy was reconsulted, and the patient was made NPO with IV fluids initiated. A repeat MBSS was conducted due to these concerns. His past medical history is extensive and includes pulmonary embolism, non-small cell lung cancer, COPD, diabetes, chronic respiratory issues, and a history of aspiration pneumonia. He also has a history of alcohol use, steroid therapy, and multiple cardiovascular and respiratory complications, including CPAP and home oxygen dependence. Current Diet Ordered: NPO Mental Status: Impaired (s/p CVA) Respiratory Status: Oxygenating on Room Air Penetration-Aspiration Scale Penetration-Aspiration Scale: OBJECTIVE ASSESSMENT OF SWALLOW FUNCTION (QUANTITATIVE ? PER TRIAL): PENETRATION / ASPIRATION SCALE (HENAO): 1 = does not enter airway 2 = enters airway/above vocal folds/ejected 3 = enters airway/above vocal folds/not ejected 4 = enters airway/contacts vocal folds/ejected 5 = enters airway/contacts vocal folds/not ejected 6 = enters airway/below vocal folds/ejected 7 = enters airway/below vocal folds/not ejected despite effort 8 = enters airway/below vocal folds/no effort VIDEOFLOROSCOPIC SCALE SCORE (HENAO): Grade I = aspiration of material that has penetrated into the laryngeal vestibule, intact cough reflex Grade II = aspiration < 10 % of the bolus, intact cough reflex Grade III = aspiration of < 10 % of the bolus, reduced cough reflex or aspiration of > 10 % of the bolus, intact cough reflex Grade IV = aspiration of > 10 % of the bolus, reduced cough reflex Penetration-Aspiration Scale Score Thin Liquid via teaspoon: Result: 1= does not enter airway Thin Liquid via teaspoon Trial 2: Result: 1= does not enter airway Thin Liquid via small single sip: cup: Result: 2= enter airway/above vocal folds/ejected Thin Liquid via sequential sips: cup: Result: 2= enter airway/above vocal folds/ejected [place] Thick Liquid via small single sip: cup: Result: 2= enter airway/above vocal folds/ejected [place] Thick Liquid via small single sip: cup: Result: 1= does not enter airway Pudding via teaspoon: Result: 1= does not enter airway Pudding via teaspoon Trial 2: Result: 1= does not enter airway Thin Liquid via small single sip: cup Trial 2: Result: 1= does not enter airway Cookie: Result: 1= does not enter airway Thin Liquid via sequential sips:straw: Result: 1= does not enter airway Barium Tablet: Result: 1= does not enter airway Oral Phase Labial Seal: No Labial Escape Tongue Control During Bolus Hold: Cohesive bolus between tongue to palatal seal Bolus Preparation/Mastication: Disorganized chewing/mashing with solid pieces of bolus unchewed Bolus Transport/Lingual Motion: Brisk tongue motion Oral Residue: Residue collection on oral structures Pharyngeal Phase Initiation of Pharyngeal Swallow: Bolus head in pyriforms Soft Palate Elevation: No bolus between soft palate and pharyngeal wall Laryngeal Elevation: Comp. Superior move thyroid cart w/comp. apprx arytenoid cart-epig pet Anterior Hyoid Excursion: Partial anterior movement Epiglottic Movement: Complete inversion Laryngeal Vestibule Closure at Height of Swallow: Incomplete; narrow column of air/contrast in laryngeal vestibule Pharyngeal Stripping Wave: Present - diminished Pharyngoesophageal Segment Opening: Complete distension and complete duration; no obstruction of flow Tongue Base Retraction: Trace column of contrast between tongue base & post. pharyngeal wall Pharyngeal Residue: Trace residue within or on pharyngeal structures Esophageal Phase Esophageal Clearance: Esophageal retention w/ retrograde flow below pharyngoesophageal seg. Treatment Strategies Effects of treatment strategies attemped:: Double swallow?was?partially effective?in clearing pharyngeal residue. Liquid wash?was?moderately effective?in facilitating esophageal clearance and motility. Diagnosis/Impression Diagnosis: MILD OROPHARYNGEAL DYSPHAGIA R13.12 Impression: The patient presents with?mild oropharyngeal dysphagia. Bolus control is adequate, with good bolus hold and timely initiation of the swallow. During the cookie trial, mastication was notably slowed, and >75% of the bolus was observed in the vallecula at the time of swallow, suggesting possible piecemeal deglutition. Post-swallow, oral residue was noted spilling into the vallecula. Pharyngeal phase?findings include delayed swallow onset, with the bolus present in the vallecula or pyriform sinuses prior to initiation. A trace amount of pharyngeal residue was observed, likely due to oral spillage, but the patient was able to clear it with a double swallow. Although unable to follow commands for a double swallow, the patient demonstrated spontaneous clearing with additional time. No aspiration was observed during the study, and airway closure appeared adequate. A persistent cough was noted but was not associated with PO intake, raising concern for?aspiration pneumonia potentially related to frequent emesis. Esophageal retention was observed in the mid-esophagus, particularly with pudding and cookie trials, with partial clearance following a liquid wash.?GI referral is recommended?for further evaluation of esophageal function. Recommendations Diet: Regular Textures and Thin Liquids Compensatory Strategies: Small Bites, Small Sips, Slow Rate, Multiple Swallows, Alternate bites/solids and sips/liquids, Sitting upright and Remain sitting upright for 30 minutes after PO intake Supervision: Distant Supervision Recommend Repeat Modified Barium Swallow: No Need for Skilled Speech Therapy Services: Yes Recommended Referrals: GI Consult Education Completed: 1. Described result of evaluation. and 2. Pt understands evaluation & agrees with goals and treatment plan. Status Active ST Patient: Active Contact Information [facility] Speech Therapy:: Roma Cardoza M.A., [facility] Speech-Language Pathologist [facility] [phone]? ?FAX [phone]? ?[email or web address] [address] [place] [address]? ?RHONDA Murray [address]
[2025-03-09 12:02] LABS: Bedside Glucose 216 mg/dL (74-106)
[2025-03-09] MEDS: 0.9% Saline Lock 10 ML Syringe IV (12:03)
[2025-03-09 12:10] VITALS: BP 140/89; PULSE 95
[2025-03-09] MEDS: Metoprolol(XL)Succ 25 MG Tablet 12.5 MG PO (12:10)
[2025-03-09] MEDS: Dext 5%-0.45% NS 1,000 ML 75 ML IV (13:23)
[2025-03-09 13:40] VITALS: PULSE 107; RESP 18; O2SAT 96
[2025-03-09 16:33] LABS: Bedside Glucose 142 mg/dL (74-106)
[2025-03-09 17:30] VITALS: PULSE 107
[2025-03-09] MEDS: metFORMIN HCl 1,000 MG Tablet 1000 MG PO (17:54)
[2025-03-09] MEDS: guaiFENesin/Codeine 5 ML UDC 15 ML PO (21:31)
[2025-03-09] MEDS: buPROPion (XL) 150 MG TABLET.XL PO (21:31)
[2025-03-09] MEDS: Atorvastatin Calcium 80 MG Tablet PO (21:31)
[2025-03-09 21:38] LABS: Bedside Glucose 142 mg/dL (74-106)
[2025-03-10] MEDS: Ampicillin/Sulbactam 3 GM in 0.9% Normal Saline (100mL MB+) 100 ML IV ×5 (00:30→23:31)
[2025-03-10] MEDS: Dext 5%-0.45% NS 1,000 ML 75 ML IV ×2 (02:43→18:52)
[2025-03-10 05:13] VITALS: BP 88/64; PULSE 105; RESP 20; TEMP 36.6; O2SAT 94
[2025-03-10 06:14] LABS: Bedside Glucose 156 mg/dL (74-106)
[2025-03-10] MEDS: Aspirin E.C. 81 MG Tablet PO (08:41)
[2025-03-10] MEDS: Umeclidinium Bromide Inhaler 1 PUFF INHALATION (08:41)
[2025-03-10] MEDS: Fluticasone/Salmeterol 232-14 Inhaler 1 PUFF INHALATION ×2 (08:41→20:32)
[2025-03-10] MEDS: metFORMIN HCl 1,000 MG Tablet 1000 MG PO ×2 (08:41→16:31)
[2025-03-10 08:43] VITALS: BP 103/63; PULSE 106
[2025-03-10] MEDS: Senna/Docusate Sodium 1 Tablet PO ×2 (08:43→20:33)
[2025-03-10] MEDS: Clopidogrel Bisulfate 75 MG Tablet PO (08:43)
[2025-03-10] MEDS: Metoprolol(XL)Succ 25 MG Tablet 12.5 MG PO (08:43)
[2025-03-10] MEDS: Nystatin Powder 15gm Bottle 1 APPLIC TOPICAL ×2 (08:45→20:32)
[2025-03-10] MEDS: Menthol/Lanolin/Calamine/Znox 113 GM Tube 1 APPLIC TOPICAL ×2 (08:45→20:32)
[2025-03-10] MEDS: buPROPion (XL) 150 MG TABLET.XL PO ×2 (09:42→20:33)
[2025-03-10] MEDS: 0.9% Normal Saline (1000mL) 1,000 ML 999 ML IV (09:46)
[2025-03-10 10:54] VITALS: BMI 36.2
[2025-03-10 11:41] LABS: Bedside Glucose 117 mg/dL (74-106)
--- NOTE | 2025-03-10 12:00 | CASEMGMT ---
SW attempted to completed BIMS and PHQ9 for MDS. Pt presenting with expressive aphasia and becoming very frustrated during interview. Pt unable to answer questions (get words out) and becoming tearful and putting hand to head in frustration. SW will complete staff assessment for MDS S MELISSA Long
[2025-03-10 13:05] VITALS: BP 103/63; PULSE 106; RESP 18; TEMP 36.8; O2SAT 94
[2025-03-10 16:35] LABS: Bedside Glucose 154 mg/dL (74-106)
[2025-03-10 16:44] VITALS: BP 128/85; PULSE 105
--- NOTE | 2025-03-10 18:02 | NURSING ---
Addendum entered by Melva Steinberg 03/13/25 08:13: 03/11/25- updated by SW that asking if she could ride along with transport for appointment on 03/18/25. RN called [facility] and per them, that would be up to the crew transporting him, they couldn't confirm she could but said they don't see why it'd be an issue. Updated at bedside and answered all other questions she had about the appt and transport. Original Note: UPDATED AND PT ON MED CHANGES AND APPOINTMENT ON 03/18/25 AT [facility] IN [place]. PT STATED I THOUGHT HE WAS GOING TO GET TREATED HERE. WE DONT WANT TO GO BACK UP THERE AND HOW MUCH IS THIS GOING TO COST? EXPLAINED TO PT THAT STATED THAT WE DO NOT HAVE A NEUROSURGEON HERE AT [facility] AND THAT IT WOULD BE BEST TO GO BACK AT [facility]. ALSO STATED TO THAT HE WOULD BE TRANSPORTED BY [facility] AT NO COST TO THEM PER ARTURO GOMES AND THAT THEY WOULD ALSO BRING HIM BACK. STATED OK THANK YOU BUT I CANT GO UP THERE. THIS NURSE GAVE THE INFO WITH PHONE NUMBER TO [facility]. RN AWARE
[2025-03-10] MEDS: Atorvastatin Calcium 80 MG Tablet PO (20:33)
[2025-03-10 21:45] LABS: Bedside Glucose 148 mg/dL (74-106)
[2025-03-10] MEDS: 0.9% Saline Lock 10 ML Syringe IV (23:25)
[2025-03-10] MEDS: 0.9% Normal Saline (250mL Bag) 250 ML 15 ML IV (23:30)
[2025-03-11 03:29] VITALS: RESP 18
[2025-03-11] MEDS: 0.9% Saline Lock 10 ML Syringe IV ×3 (05:24→21:42)
[2025-03-11] MEDS: Ampicillin/Sulbactam 3 GM in 0.9% Normal Saline (100mL MB+) 100 ML IV ×3 (05:29→18:07)
[2025-03-11 06:33] LABS: Bedside Glucose 141 mg/dL (74-106)
--- NOTE | 2025-03-11 08:45 | NURSING ---
Thread Inspector Note; MDS for 03/11/2025 Complete
[2025-03-11] MEDS: metFORMIN HCl 1,000 MG Tablet 1000 MG PO ×2 (09:11→17:22)
[2025-03-11] MEDS: Fluticasone/Salmeterol 232-14 Inhaler 1 PUFF INHALATION ×2 (09:11→21:43)
[2025-03-11] MEDS: Menthol/Lanolin/Calamine/Znox 113 GM Tube 1 APPLIC TOPICAL ×2 (09:11→21:43)
[2025-03-11] MEDS: Umeclidinium Bromide Inhaler 1 PUFF INHALATION (09:11)
[2025-03-11] MEDS: Aspirin E.C. 81 MG Tablet PO (09:11)
[2025-03-11 09:12] VITALS: BP 104/71; PULSE 110
[2025-03-11] MEDS: Clopidogrel Bisulfate 75 MG Tablet PO (09:12)
[2025-03-11] MEDS: Senna/Docusate Sodium 1 Tablet PO ×2 (09:12→21:44)
[2025-03-11] MEDS: Nystatin Powder 15gm Bottle 1 APPLIC TOPICAL ×2 (09:12→21:44)
[2025-03-11] MEDS: Metoprolol(XL)Succ 25 MG Tablet PO (09:12)
[2025-03-11] MEDS: buPROPion (XL) 150 MG TABLET.XL PO ×2 (09:13→21:44)
--- NOTE | 2025-03-11 09:19 | CASEMGMT ---
Discharge Planning A list of?SNF providers including quality and resource use data and consistent with the patient's preferred geographic region, medical needs, and insurance network was created in [facility] Guide.? This list was provided to the SW. Shahnaz [place] Discharge Planning Asst.
[2025-03-11 12:07] LABS: Bedside Glucose 155 mg/dL (74-106)
--- NOTE | 2025-03-11 13:59 | CASEMGMT ---
Plan of care meeting held with pt, pt's Tanja and pt's sister Rosmery present. Therapy/Nutrition/Activities provided updates. Pt is making progress with therapy. TODD educated pt and family to [facility] benefit with NRD of 03/16 and that continued stay is not guaranteed. PT lives at home with his in a split level home. At this time pt family is adamant that pt will return home at discharge. Family would like to be able to transfer to Inpatient Rehab if at all possible. TODD explained that approval would be up to director and insurance and pt is not able a rehab candidate at this time. Family planning on pt returning home if he is not able to admit to [facility] and once TCU stay is complete. Pt would benefit from continued stay in TCU at this time. TODD will cotinue to follow for dc planning. MELISSA Russell
--- NOTE | 2025-03-11 15:06 | NURSING ---
PER PT AND PT FAMILY, THE PT WOULD LIKE TO BE ASKED IF HE WOULD LIKE TO EAT IN THE FAMILY LOUNGE FOR LUNCH AND SUPPER. RN AWARE
[2025-03-11 16:00] VITALS: BP 104/71; PULSE 110; RESP 18; TEMP 36.1; O2SAT 95
[2025-03-11 17:11] LABS: Bedside Glucose 154 mg/dL (74-106)
[2025-03-11] MEDS: Atorvastatin Calcium 80 MG Tablet PO (21:44)
[2025-03-11] MEDS: guaiFENesin/Codeine 5 ML UDC 15 ML PO (21:50)
[2025-03-11 22:52] LABS: Bedside Glucose 128 mg/dL (74-106)
[2025-03-12] MEDS: Ampicillin/Sulbactam 3 GM in 0.9% Normal Saline (100mL MB+) 100 ML IV ×4 (00:35→17:00)
[2025-03-12] MEDS: 0.9% Normal Saline (250mL Bag) 250 ML 15 ML IV (00:35)
[2025-03-12] MEDS: 0.9% Saline Lock 10 ML Syringe IV ×3 (00:35→17:00)
[2025-03-12 06:10] LABS: Absolute Lymphocyte Count 0.88 X10^3/uL (0.83-4.51); Absolute Neutrophil Count 5.3 X10^3/uL (2.0-7.7); Basophil# 0.04 X10^3/uL; Basophil% 0.5 % (0-1); Eosinophil# 0.31 X10^3/uL; Eosinophils% 4.2 % (0-5); Hematocrit 30.8 % (40-54); Hemoglobin 10.4 g/dL (13.0-16.5); Lymphocyte # 0.88 X10^3/ul (0.83-4.51); Lymphocyte % 11.8 % (19-41); Mean Corp Hgb Conc 33.8 g/dL (32-36); Mean Corpuscular Hgb 30.3 pg (27.0-32.0); Mean Corpuscular Volume 89.8 fL (80-94); Mean Platelet Vol. 9.2 fl (6.2-12.0); Monocyte# 0.86 X10^3/uL; Monocyte% 11.5 % (0-10); NRBC Flagged by Analyzer 0 % (0-5); Neutrophil # 5.31 X10^3/uL (2.7-7.7); Neutrophil % 71.3 % (47-70); Platelet Count 258 K/mm3 (150-450); RBC Distribution Width CV 15.9 % (11.6-14.6); RBC Distribution Width SD 51.5 fl (35.1-43.9); Red Blood Count 3.43 M/mm3 (4.6-6.2); White Blood Count 7.5 K/mm3 (4.4-11.0)
[2025-03-12 06:25] LABS: Anion Gap 12 (5-15); BUN 9 mg/dL (4-19); BUN/Creat Ratio 12.9 RATIO (10-20); Calcium,Total 8.5 mg/dL (7.6-11.0); Carbon Dioxide 22.9 mmol/L (21.0-32.0); Chloride 101 mmol/L (98-108); Creatinine, Serum 0.66 mg/dL (0.70-1.20); EST Glomerular Filtration Rate 100 (>60); Estimated Creatinine Clearance 105.79 ml/min (50-250); Glucose 150 mg/dL (70-99); Sodium Level 136 mmol/L (133-145)
[2025-03-12 06:52] LABS: Bedside Glucose 142 mg/dL (74-106)
[2025-03-12] MEDS: Fluticasone/Salmeterol 232-14 Inhaler 1 PUFF INHALATION ×2 (09:19→19:51)
[2025-03-12] MEDS: Umeclidinium Bromide Inhaler 1 PUFF INHALATION (09:19)
[2025-03-12 09:20] VITALS: BP 107/78; PULSE 116; RESP 18; TEMP 36.1; O2SAT 95
[2025-03-12] MEDS: Senna/Docusate Sodium 1 Tablet PO ×3 (09:20→19:50)
[2025-03-12] MEDS: Metoprolol(XL)Succ 25 MG Tablet PO (09:20)
[2025-03-12] MEDS: Clopidogrel Bisulfate 75 MG Tablet PO (09:20)
[2025-03-12] MEDS: Aspirin E.C. 81 MG Tablet PO (09:20)
[2025-03-12] MEDS: Nystatin Powder 15gm Bottle 1 APPLIC TOPICAL ×2 (09:21→19:50)
[2025-03-12] MEDS: buPROPion (XL) 150 MG TABLET.XL PO ×2 (09:21→19:40)
[2025-03-12] MEDS: metFORMIN HCl 1,000 MG Tablet 1000 MG PO ×2 (09:21→16:59)
[2025-03-12] MEDS: Menthol/Lanolin/Calamine/Znox 113 GM Tube 1 APPLIC TOPICAL ×2 (09:21→19:51)
[2025-03-12] MEDS: Tuberculin,Purif.prot.deriv. 50 TU/ML Vial 0.1 ML ID (11:56)
[2025-03-12 12:24] LABS: Bedside Glucose 134 mg/dL (74-106)
--- NOTE | 2025-03-12 12:55 | NURSING ---
pt left unit for appt.
--- NOTE | 2025-03-12 13:50 | NURSING ---
pt returned from appt
[2025-03-12 16:37] LABS: Bedside Glucose 165 mg/dL (74-106)
[2025-03-12] MEDS: Atorvastatin Calcium 80 MG Tablet PO (19:50)
[2025-03-12 21:46] LABS: Bedside Glucose 141 mg/dL (74-106)
[2025-03-13] MEDS: Ampicillin/Sulbactam 3 GM in 0.9% Normal Saline (100mL MB+) 100 ML IV ×5 (00:11→23:16)
[2025-03-13] MEDS: 0.9% Saline Lock 10 ML Syringe IV ×2 (00:11→12:16)
[2025-03-13 05:44] LABS: Hematocrit 31.1 % (40-54); Hemoglobin 10.6 g/dL (13.0-16.5)
[2025-03-13 07:11] LABS: Bedside Glucose 141 mg/dL (74-106)
[2025-03-13] MEDS: Aspirin E.C. 81 MG Tablet PO (08:20)
[2025-03-13] MEDS: Menthol/Lanolin/Calamine/Znox 113 GM Tube 1 APPLIC TOPICAL ×2 (08:21→23:24)
[2025-03-13] MEDS: metFORMIN HCl 1,000 MG Tablet 1000 MG PO ×2 (08:21→17:20)
[2025-03-13] MEDS: Umeclidinium Bromide Inhaler 1 PUFF INHALATION (08:21)
[2025-03-13] MEDS: Fluticasone/Salmeterol 232-14 Inhaler 1 PUFF INHALATION ×2 (08:21→23:24)
[2025-03-13 08:22] VITALS: BP 90/56; PULSE 80
[2025-03-13] MEDS: Nystatin Powder 15gm Bottle 1 APPLIC TOPICAL ×2 (08:22→23:24)
[2025-03-13] MEDS: Clopidogrel Bisulfate 75 MG Tablet PO (08:22)
[2025-03-13] MEDS: buPROPion (XL) 150 MG TABLET.XL PO ×2 (08:23→23:17)
[2025-03-13 11:28] LABS: Bedside Glucose 156 mg/dL (74-106)
[2025-03-13 14:44] VITALS: BP 93/56; PULSE 77; RESP 16; TEMP 35.8; O2SAT 95
[2025-03-13 17:00] LABS: Bedside Glucose 146 mg/dL (74-106)
[2025-03-13 22:27] LABS: Bedside Glucose 128 mg/dL (74-106)
[2025-03-13] MEDS: Senna/Docusate Sodium 1 Tablet PO (23:17)
[2025-03-13] MEDS: Atorvastatin Calcium 80 MG Tablet PO (23:17)
[2025-03-14] MEDS: 0.9% Normal Saline (250mL Bag) 250 ML 15 ML IV (04:55)
[2025-03-14] MEDS: Ampicillin/Sulbactam 3 GM in 0.9% Normal Saline (100mL MB+) 100 ML IV ×3 (04:56→16:37)
[2025-03-14 06:53] LABS: Bedside Glucose 126 mg/dL (74-106)
[2025-03-14] MEDS: Aspirin E.C. 81 MG Tablet PO (09:45)
[2025-03-14] MEDS: Menthol/Lanolin/Calamine/Znox 113 GM Tube 1 APPLIC TOPICAL ×2 (09:47→22:04)
[2025-03-14] MEDS: buPROPion (XL) 150 MG TABLET.XL PO ×2 (09:47→22:11)
[2025-03-14] MEDS: metFORMIN HCl 1,000 MG Tablet 1000 MG PO ×2 (09:47→16:34)
[2025-03-14] MEDS: Nystatin Powder 15gm Bottle 1 APPLIC TOPICAL ×2 (09:47→22:06)
[2025-03-14] MEDS: Clopidogrel Bisulfate 75 MG Tablet PO (09:47)
[2025-03-14] MEDS: Fluticasone/Salmeterol 232-14 Inhaler 1 PUFF INHALATION ×2 (09:50→22:04)
[2025-03-14] MEDS: Umeclidinium Bromide Inhaler 1 PUFF INHALATION (09:50)
[2025-03-14 09:55] VITALS: BP 98/62; PULSE 110; RESP 18; TEMP 36; O2SAT 95
[2025-03-14 10:00] VITALS: PULSE 106; RESP 21; O2SAT 98
[2025-03-14 12:39] LABS: Bedside Glucose 120 mg/dL (74-106)
--- NOTE | 2025-03-14 15:26 | NURSING ---
This RN was getting something from the hallway and went back in to talk with Mr. Shi's sister in law and pt had vomitted on his upper chest. Sister in law stated that he had been coughing and then threw up mod amt of his eagle milk he recently had for lunch with small amt of undigested flecks of food. PT was laying back in his recliner and this RN sat him straight up. Pt sitting straight up in recliner now.
[2025-03-14 16:34] VITALS: BP 113/82; PULSE 103
[2025-03-14] MEDS: Metoprolol(XL)Succ 25 MG Tablet PO (16:34)
[2025-03-14 16:56] LABS: Bedside Glucose 165 mg/dL (74-106)
[2025-03-14 21:52] LABS: Bedside Glucose 123 mg/dL (74-106)
[2025-03-14] MEDS: Senna/Docusate Sodium 1 Tablet PO (22:05)
[2025-03-14] MEDS: Atorvastatin Calcium 80 MG Tablet PO (22:05)
[2025-03-14] MEDS: 0.9% Saline Lock 10 ML Syringe IV (22:12)
[2025-03-15] MEDS: Ampicillin/Sulbactam 3 GM in 0.9% Normal Saline (100mL MB+) 100 ML IV ×3 (00:26→11:50)
[2025-03-15] MEDS: 0.9% Normal Saline (250mL Bag) 250 ML 15 ML IV (00:27)
[2025-03-15] MEDS: 0.9% Saline Lock 10 ML Syringe IV ×3 (00:28→11:53)
[2025-03-15 06:23] LABS: Bedside Glucose 124 mg/dL (74-106)
[2025-03-15 08:28] VITALS: BP 119/70; PULSE 102; RESP 20; TEMP 36.3; O2SAT 94
[2025-03-15] MEDS: Aspirin E.C. 81 MG Tablet PO (08:33)
[2025-03-15] MEDS: Fluticasone/Salmeterol 232-14 Inhaler 1 PUFF INHALATION ×2 (08:33→22:35)
[2025-03-15] MEDS: Umeclidinium Bromide Inhaler 1 PUFF INHALATION (08:33)
[2025-03-15] MEDS: metFORMIN HCl 1,000 MG Tablet 1000 MG PO ×2 (08:33→17:12)
[2025-03-15 08:34] VITALS: PULSE 102
[2025-03-15] MEDS: Menthol/Lanolin/Calamine/Znox 113 GM Tube 1 APPLIC TOPICAL ×2 (08:34→22:35)
[2025-03-15] MEDS: buPROPion (XL) 150 MG TABLET.XL PO ×2 (08:34→22:37)
[2025-03-15] MEDS: Senna/Docusate Sodium 1 Tablet PO ×2 (08:34→22:36)
[2025-03-15] MEDS: Metoprolol(XL)Succ 25 MG Tablet PO (08:34)
[2025-03-15] MEDS: Clopidogrel Bisulfate 75 MG Tablet PO (08:34)
[2025-03-15] MEDS: Nystatin Powder 15gm Bottle 1 APPLIC TOPICAL ×2 (08:34→22:36)
[2025-03-15 11:34] LABS: Bedside Glucose 162 mg/dL (74-106)
--- NOTE | 2025-03-15 12:40 | NURSING ---
Nurse brought residents tray for lunch, upon setting it down on his over bed table, resident grabbed his bag of potato chips and threw it at his family member at bedside while they were arguing. Nurse asked resident if he was having any pain and he stated no. Family at bedside told this nurse to never ask him that question ever again. Nurse explained that it is important to assess for pain as pain can increase agitation and be counterproductive to his care. Family member stated that he has never had pain, no headaches or any other kind and that she does not want his pain assessed. Nurse explained that she would keep that in mind but his pain will be assessed per policy. Family member verbalized understanding, resident denies additional needs at this time.
--- NOTE | 2025-03-15 15:10 | NURSING ---
ATB completed, family and resident requesting saline lock be pulled as it is causing discomfort, saline lock in right AC discontinued, catheter intact, resident tolerated well.
[2025-03-15 16:47] LABS: Bedside Glucose 115 mg/dL (74-106)
[2025-03-15 22:08] LABS: Bedside Glucose 112 mg/dL (74-106)
[2025-03-15] MEDS: Atorvastatin Calcium 80 MG Tablet PO (22:36)
[2025-03-16 06:49] LABS: Bedside Glucose 132 mg/dL (74-106)
[2025-03-16 07:55] LABS: Hematocrit 30.6 % (40-54); Hemoglobin 10.1 g/dL (13.0-16.5)
[2025-03-16] MEDS: Aspirin 81 MG TAB.CHEW PO (09:08)
[2025-03-16 09:09] VITALS: BP 128/80; PULSE 101
[2025-03-16] MEDS: Umeclidinium Bromide Inhaler 1 PUFF INHALATION (09:09)
[2025-03-16] MEDS: Clopidogrel Bisulfate 75 MG Tablet PO (09:09)
[2025-03-16] MEDS: metFORMIN HCl 1,000 MG Tablet 1000 MG PO ×2 (09:09→17:54)
[2025-03-16] MEDS: Fluticasone/Salmeterol 232-14 Inhaler 1 PUFF INHALATION ×2 (09:09→22:37)
[2025-03-16] MEDS: Metoprolol(XL)Succ 25 MG Tablet PO (09:09)
[2025-03-16] MEDS: buPROPion (XL) 150 MG TABLET.XL PO (09:10)
[2025-03-16] MEDS: Menthol/Lanolin/Calamine/Znox 113 GM Tube 1 APPLIC TOPICAL ×2 (09:14→22:39)
[2025-03-16] MEDS: Nystatin Powder 15gm Bottle 1 APPLIC TOPICAL ×2 (09:15→22:40)
[2025-03-16 10:00] VITALS: BP 128/80; PULSE 101; RESP 18; TEMP 36.2; O2SAT 98
[2025-03-16 12:00] LABS: Bedside Glucose 139 mg/dL (74-106)
--- NOTE | 2025-03-16 12:22 | NURSING ---
Called and spoke with Jerilyn with Dr. Ayala's office. Let her know pre-op orders were never received via fax. She will message the clinical team and have them call back.
--- NOTE | 2025-03-16 13:11 | NURSING ---
Spoke with Pamela at Dr. Ayala's office. Orders for angiogram 03/18/25- NPO after midnight. Needs to take aspirin and plavix AM of procedure. Hold metformin 03/17/25 through procedure. Orders entered.
[2025-03-16 16:38] LABS: Bedside Glucose 117 mg/dL (74-106)
[2025-03-16] MEDS: 0.9% Normal Saline (1000mL) 1,000 ML 999 ML IV (18:54)
[2025-03-16 21:29] LABS: Bedside Glucose 129 mg/dL (74-106)
[2025-03-17] MEDS: guaiFENesin/Codeine 5 ML UDC 15 ML PO ×2 (00:04→21:47)
[2025-03-17 06:22] LABS: Bedside Glucose 136 mg/dL (74-106)
[2025-03-17 06:54] VITALS: BP 130/72
[2025-03-17 08:21] VITALS: BP 111/65; PULSE 104; RESP 16; TEMP 36.1; O2SAT 95
[2025-03-17] MEDS: Aspirin 81 MG TAB.CHEW PO (08:22)
[2025-03-17] MEDS: Clopidogrel Bisulfate 75 MG Tablet PO (08:22)
[2025-03-17 08:23] VITALS: PULSE 104
[2025-03-17] MEDS: Metoprolol(XL)Succ 25 MG Tablet PO (08:23)
[2025-03-17] MEDS: Menthol/Lanolin/Calamine/Znox 113 GM Tube 1 APPLIC TOPICAL ×2 (08:23→21:39)
[2025-03-17] MEDS: Nystatin Powder 15gm Bottle 1 APPLIC TOPICAL ×2 (08:23→21:40)
[2025-03-17] MEDS: Fluticasone/Salmeterol 232-14 Inhaler 1 PUFF INHALATION ×2 (08:24→21:40)
[2025-03-17] MEDS: Umeclidinium Bromide Inhaler 1 PUFF INHALATION (08:24)
[2025-03-17] MEDS: buPROPion (XL) 150 MG TABLET.XL PO ×2 (08:24→21:41)
--- NOTE | 2025-03-17 09:54 | MDS.RN ---
Information for the MDS was obtained from review of the clinical record, interview of resident, staff, and direct observation of resident?s care.
[2025-03-17 10:00] VITALS: PULSE 100; RESP 21; O2SAT 93; BMI 35.9
[2025-03-17 12:25] LABS: Bedside Glucose 167 mg/dL (74-106)
[2025-03-17 16:48] LABS: Bedside Glucose 117 mg/dL (74-106)
[2025-03-17] MEDS: Atorvastatin Calcium 80 MG Tablet PO (21:40)
[2025-03-17] MEDS: Senna/Docusate Sodium 1 Tablet PO (21:41)
[2025-03-17 21:56] LABS: Bedside Glucose 121 mg/dL (74-106)
[2025-03-18] MEDS: Aspirin 81 MG TAB.CHEW PO (04:34)
[2025-03-18] MEDS: Clopidogrel Bisulfate 75 MG Tablet PO (04:35)
--- NOTE | 2025-03-18 04:45 | NURSING ---
Patient taken by transport at 0445 for procedure in [place]. Per procedure orders this nurse gave Aspirin, and Plavix prior to procedure.
--- NOTE | 2025-03-18 06:53 | NURSING ---
upon patients assessment on pm shift approximately 2100 patients HUNTER lower extremities had 2+ pitting edema, pedal pulses present, R Lower Extremity was cool to touch and pedal pulse was weak. Communication note for addressing DVT Prophylactic measures to be taken. Order placed for Rodolfo Bandages to HUNTER Lower Extremities for Prophylactic DVT. Notified RN, Will Continue To Monitor.
--- NOTE | 2025-03-18 07:46 | NURSING ---
[facility] called for report this AM, stated he will not be back today. dr littlejohn updated for DC order.
--- NOTE | 2025-03-18 08:02 | PCM.DC.SUM ---
Providers Date of Admission: 03/04/25 Primary Care Physician: Dr. Adalid Cross, Consultations 03/17/25 17:06 Consult: Gastroenterology Routine Consulting Provider: [facility] Reason for Consult: ST noted esophageal retention. EMERGENT Consult: No MD Notified: Yes Date Notified: 03/17/25 Time Notified: 17:06 Method of Notification: Text Reason For Visit: CVA Diagnosis Discharge Diagnosis (1) Debility: Status: Acute Code(s): R53.81 - Other malaise (2) Stroke: Status: Acute Code(s): I63.9 - Cerebral infarction, unspecified (3) Right flaccid hemiplegia: Status: Acute Code(s): G81.01 - Flaccid hemiplegia affecting right dominant side (4) Left carotid artery stenosis: Status: Acute Code(s): I65.22 - Occlusion and stenosis of left carotid artery (5) Aspiration pneumonia: Status: Acute Code(s): J69.0 - Pneumonitis due to inhalation of food and vomit (6) Adenocarcinoma of right lung: Status: Chronic Code(s): C34.91 - Malignant neoplasm of unspecified part of right bronchus or lung (7) COPD (chronic obstructive pulmonary disease): Status: Chronic Code(s): J44.9 - Chronic obstructive pulmonary disease, unspecified (8) Type 2 diabetes mellitus with hyperglycemia: Status: Acute Code(s): E11.65 - Type 2 diabetes mellitus with hyperglycemia (9) Essential (primary) hypertension: Status: Acute Code(s): I10 - Essential (primary) hypertension (10) Hyperlipidemia, unspecified: Status: Acute Code(s): E78.5 - Hyperlipidemia, unspecified (11) Coronary artery disease status post coronary stent insertion: Status: Acute Code(s): I25.10 - Atherosclerotic heart disease of [place] coronary artery without angina pectoris; Z95.5 - Presence of coronary angioplasty implant and graft (12) Depression: Status: Acute Code(s): F32.A - Depression, unspecified (13) Insomnia: Status: Acute Code(s): G47.00 - Insomnia, unspecified (14) Pulmonary embolism: Status: Acute Code(s): I26.99 - Other pulmonary embolism without acute cor pulmonale Plan 74 year old male with below past medical history significant for recent lung cancer treated with chemoradiation, hospitalized for stroke with right upper extremity hemiplegia, complicated by severe left carotid artery stenosis, admitted to TCU with debility, here for rehabilitation, strengthening, prior to discharge home with . Debility - PT/OT. Dysphagia - ST. Pain - Tylenol 1000mg q6 prn pain (1-10). Bowel - Miralax 17gm daily prn, senna/colace 1 tablet bid, Magnesium citrate 300mL daily prn. Adult immunization - Administer pneumonia vaccine, covid vaccine, flu vaccine as appropriate. DVT prophylaxis - Hold, on dapt. COPD - Fluticasone/Salmeterol 1 puff q12, Incruse 1 puff daily, Albuterol 1 puff q6 prn. Stroke with right hemiplegia - Aspirin 81mg daily, Plavix 75mg daily. Severe left carotid artery stenosis - Consult Dr. Almodovar/Sharon Webb, resident does not to go back to [facility] due to travel distance. Carotid duplex ordered. Hyperlipidemia - Atorvastatin 80mg qhs. Aspiration pneumonia - Chest X-ray done, Clindamycin 450mg po tid x 7 days. Skin irritation - Calmoseptine topical bid. Diabetes Mellitus II - Metformin 1000mg bidcm. Coronary artery disease s/p stent - Metoprolol succinate 25mg daily, Plavix 75mg daily, Aspirin 81mg dailyl Tinea Corporis - Nystatin powder topical bid. Lung cancer - Dr. Baum. The following psychotropic medication was present on admission: Bupropion 150mg bid. Psychotropic medication therapy is indicated for a diagnosis of: Major Depression. Based on my clinical evaluation, continuation of the medication is necessary at this time. Gradual dose reduction plan (select one): ____ GDR will be attempted. Will monitor patient symptoms and behaviors in response to GDR. __x__ GRD contraindicated. Reason contraindicated: stable chronic use. Medications at Discharge Home Medications aspirin 81 mg tablet,delayed release 81 mg PO DAILY heart health 05/02/18 Symbicort 80 mcg-4.5 mcg/actuation HFA aerosol inhaler (budesonide-formoterol) 2 inh inhalation BID breathing #3 ea 05/13/24 bupropion HCl 150 mg 24 hr tablet, extended release 150 mg PO DAILY mental health 07/07/24 metformin 1,000 mg tablet 1,000 mg PO BID diabetes 07/07/24 metoprolol succinate 25 mg tablet,extended release 24 hr 25 mg PO QDAY BP/pulse 12/22/24 albuterol sulfate 90 mcg/actuation aerosol inhaler (Ventolin HFA) 1 puff inhalation Q6H PRN shortness of breath or wheezing 03/04/25 atorvastatin 80 mg tablet (Lipitor) 80 mg PO QHS cholesterol 03/04/25 clopidogrel 75 mg tablet 75 mg PO DAILY antiplatelet 03/04/25 acetaminophen 500 mg tablet 1,000 mg (2 x 500 mg) PO Q6H PRN Pain Score 1-10 #0 tabs 03/18/25 fluticasone 232 mcg-salmeterol 14 mcg/actuation breath activated powdr 1 inh inhalation Q12 #0 ea 03/18/25 menthol 0.44 %-zinc oxide 20.6 % topical ointment (Calmoseptine) 1 applic topical BID #0 grams 03/18/25 nystatin 100,000 unit/gram topical powder 1 applic topical BID #0 grams 03/18/25 sennosides 8.6 mg-docusate sodium 50 mg tablet (Stimulant Laxative Plus) 1 tab PO BID #0 tabs 03/18/25 Hospital Course Operations None Procedures - (Diagnostic cerebral angiogram.) Summary of Care Provided Minutes Spent on Discharge: 15 Hospital Course: 74 year old male with below past medical history significant for recent lung cancer treated with chemoradiation, hospitalized for stroke with right upper extremity hemiplegia, complicated by severe left carotid artery stenosis, admitted to TCU with debility, here for rehabilitation, strengthening, prior to discharge home with . 03/05/2025 Carotid duplex: Interpretation Summary Mild (<50%) stenosis right extracranial internal carotid. Mild (<50%) stenosis left extracranial internal carotid. Patent and antegrade vertebrals bilaterally. Limited due to calcific shadowing, alternative imaging may be beneficial 03/09/2025 MBS Diet: Regular Textures and Thin Liquids Compensatory Strategies: Small Bites, Small Sips, Slow Rate, Multiple Swallows, Alternate bites/solids and sips/liquids, Sitting upright and Remain sitting upright for 30 minutes after PO intake Supervision: Distant Supervision 03/12/2025 Dr. Baum (Oncology): (1) Adenocarcinoma of right lung: Status: Chronic Comment: NSCLC-adenocarcinoma type, probably T1 N2 M0- clinically stage IIIA. PD-1 negative, ALK, ROS1, BRAF, HER2, NTRK, RET/MET negative, EGFR exon 19 deletion Positive. Completed 7 weeks Taxol/Carboplatin weekly with Radiation therapy on 06/25/24. PET CT scan on 12/09/2024 showed hypermetabolic activity in the right hemithorax. 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 Discussed adjuvant therapy with Osimertinib x 3 yrs, risks, benefits and side effects. Pt agreed. Comes for follow up. Started Osimertinib on 01/14/2025. Had SOB/Cough. CT on 02/12/2025 showed density more suggestive of Radiation fibrosis. Plan: To stop Osimertinib 80mg daily because of CVA with aphasia and R sided weakness. Discharge to [facility] 03/18/2025 for repeat Diagnostic cerebral angiogram, possible intervention. Weight / BMI Weight Weight: 113.988 kg Body Mass Index (BMI) 35.9 ABG / Lab / Microbiology Data 03/16/25 07:45 03/12/25 05:27 Laboratory: Laboratory Results - last 24 hr 03/17/25 12:07: POC Glucose 167 H 03/17/25 16:20: POC Glucose 117 H 03/17/25 21:27: POC Glucose 121 H D/C Instructions Discharge Diet: - (NPO.) Weight Bearing Status: Weight bearing as tolerated Call your doctor if you observe: Fever of 101 or Higher, Inability to urinate, Inability to have a bowel movement, Shortness of breath, Dizziness, Fainting spells, Swelling in the ankles, Chest pain and Uncontrolled pain DC O2, CPAP, BIPAP Needs Home O2 Discharge instructions: No Additional Instructions: Discharge to [facility] 03/18/2025 for repeat Diagnostic cerebral angiogram, possible intervention. Please Follow Up With: Dr. Ayala Meaningful Use Info Meaningful Use Meaningful Use Diagnoses (Choose all that apply): Ischemic CVA CVA Therapy Assessed for PT,OT and/or ST?: Yes Ischemic Stroke Antithrombotic order at d/c?: Yes Dx of Atrial fib/flutter?: No Statin Dosing Therapy Reference: STATIN DOSE THERAPY REFERENCE: * Patients > 75 years receive moderate or high dose statin therapy. * Patients 75 years or YOUNGER should receive HIGH intensity statin dose unless contraindicated. You will be required to document reason for non-treatment if statin daily dose does not meet guidelines. HIGH DOSE STATIN THERAPY DAILY Atorvastatin > than or = to 40 mg Rosuvastatin > than or = to 20 mg Amlodipine + Atorvastatin > than or = to 2.5/40 mg Ezetimibe + Simvastatin 10/80 mg Simvastatin 80mg Statins at discharge?: Yes If patient is 75 or younger, pt will be discharged on HIGH intensity statin.: Yes Primary Dx Acute Ischemic CVA?: Yes IV thrombolytic ordered during stay?: No Reason IV thrombolytic not ordered: Treatment not Indicated Discharge Plan Admission Admit Date/Time: 03/04/25 10:22 Primary Reason for Your Visit: Debility. Attending Provider: Robby Salomon Chi Primary Care Provider: Adalid Cross Instructions Additional Instructions / Restrictions: Discharge to [facility] 03/18/2025 for repeat Diagnostic cerebral angiogram, possible intervention. Discharge Orders/Prescriptions Prescriptions: New sennosides-docusate sodium [Stimulant Laxative Plus] 8.6-50 mg Tablet 1 tab PO BID Qty: 0 0RF acetaminophen 500 mg Tablet 1,000 mg PO Q6H PRN (Reason: Pain Score 1-10) Qty: 0 0RF nystatin 100,000 unit/gram Powder 1 applic topical BID Qty: 0 0RF Protocol: *Topical Application Instructions APPLICATION INSTRUCTIONS: abdominal folds menthol-zinc oxide [Calmoseptine] 0.44-20.6 % Ointment 1 applic topical BID Qty: 0 0RF Protocol: *Topical Application Instructions APPLICATION INSTRUCTIONS: bilateral buttocks fluticasone propion-salmeterol 232-14 mcg/actuation Aerosol Powdr Breath Activated 1 inh inhalation Q12 Qty: 0 0RF Continued aspirin 81 mg tablet,delayed release (DR/EC) 81 mg PO DAILY metoprolol succinate 25 mg tablet extended release 24 hr 25 mg PO QDAY clopidogrel 75 mg tablet 75 mg PO DAILY albuterol sulfate [Ventolin HFA] 90 mcg/actuation HFA aerosol inhaler 1 puff INHALATION Q6H PRN (Reason: shortness of breath or wheezing) metformin 1,000 mg tablet 1,000 mg PO BID bupropion HCl 150 mg tablet extended release 24 hr 150 mg PO DAILY budesonide-formoterol [Symbicort] 80-4.5 mcg/actuation HFA aerosol inhaler 2 inh INHALATION BID Qty: 3 3RF Rx Instructions: 2 Puffs Inh BID j44.9 Discontinued furosemide 40 mg tablet 40 mg PO BID albuterol sulfate 2.5 mg /3 mL (0.083 %) solution for nebulization 2.5 mg INHALATION Q6H PRN (Reason: shortness of breath or wheezing) simvastatin 80 mg tablet 80 mg PO QHS Novolin 70/30 U-100 Insulin 100 unit/mL (70-30) suspension 1 sliding scale dose SC BID Protocol: 6. Sliding Scale Insulin Custom Condition: mg/dl range Dose/Route: NUMBER OF UNITS AT BREAKFAST Instruction: NUMBER OF UNITS AT DINNER Condition: 0-60 Dose/Route: 0 Instruction: 0 Condition: 60-80 Dose/Route: 10 Instruction: 22 Condition: 81-120 Dose/Route: 22 Instruction: 38 Condition: 121-180 Dose/Route: 24 Instruction: 40 Condition: 181-240 Dose/Route: 26 Instruction: 42 Condition: 241-300 Dose/Route: 28 Instruction: 44 Condition: 301-400 Dose/Route: 30 Instruction: 46 Condition: 401+ Dose/Route: 32 Instruction: 48 Protocol Text: Custom Sliding Scale PT TAKES SLIDING SCALE TWICE DAILY AT BREAKFAST AND DINNER. hydroxyzine HCl 25 mg tablet 25 mg PO QHS Incruse Ellipta 62.5 mcg/actuation blister with device 1 inh inhalation DAILY Dulera 200-5 mcg/actuation HFA aerosol inhaler 2 inh inhalation BID polyethylene glycol 3350 [Miralax] 17 gram/dose powder 17 g PO DAILY PRN (Reason: bowels) sennosides 17.2 mg tablet 17.2 mg PO DAILY acetaminophen 325 mg capsule 650 mg PO Q6H PRN (Reason: pain) Ozempic 2 mg/dose (8 mg/3 mL) pen injector 2 mg subcut SA losartan 50 mg tablet 50 mg PO DAILY Eliquis 5 mg Tablet 5 mg PO BID tiotropium bromide [Spiriva with HandiHaler] 18 mcg capsule, w/inhalation device 1 cap INHALATION DAILY Qty: 90 3RF No Action atorvastatin [Lipitor] 80 mg tablet 80 mg PO QHS Referrals / Follow Up: Adalid Cross DO [Primary Care Provider] - Disposition Disposition (needs filled in before D/C Order can be placed): [facility]
== END 2025-03-18 04:30 | disposition short-term general hospital (02) | DRG 56 ==
PROVIDERS: Admitting Provider Family Medicine Geriatric Medicine; PCP Preventive Medicine Occupational Medicine; Referring Provider Family Medicine Geriatric Medicine; Visit Provider Family Medicine Geriatric Medicine
DX: I69.351 Hemiplegia and hemiparesis following cerebral infarction affecting right dominant side (principal); J69.0 Pneumonitis due to inhalation of food and vomit; C34.91 Malignant neoplasm of unspecified part of right bronchus or lung; I69.320 Aphasia following cerebral infarction; B35.4 Tinea corporis; E11.65 Type 2 diabetes mellitus with hyperglycemia; Z99.81 Dependence on supplemental oxygen; J44.9 Chronic obstructive pulmonary disease, unspecified; F32.9 Major depressive disorder, single episode, unspecified; I10 Essential (primary) hypertension; I25.10 Atherosclerotic heart disease of native coronary artery without angina pectoris; E78.00 Pure hypercholesterolemia, unspecified; Z79.4 Long term (current) use of insulin; I69.30 Unspecified sequelae of cerebral infarction; Z86.711 Personal history of pulmonary embolism; G47.00 Insomnia, unspecified; Z87.891 Personal history of nicotine dependence; Z79.84 Long term (current) use of oral hypoglycemic drugs; Z79.899 Other long term (current) drug therapy; Z79.01 Long term (current) use of anticoagulants; Z79.51 Long term (current) use of inhaled steroids; Z79.82 Long term (current) use of aspirin; Z79.02 Long term (current) use of antithrombotics/antiplatelets
CPT/HCPCS: 36415; 71046; 74230; 80048; 80061; 82962; 83036; 85014; 85018; 85025; 92507; 92523; 92526; 92610; 92611; 97110; 97116; 97129; 97130; 97162; 97166; 97530; 97535; A4216; J0295

== ENCOUNTER → 2025-03-05 | Outpatient (CLI) | payer MEDICARE, SELFPAY ==
--- NOTE | 2025-03-05 08:42 | CDU_ITS ---
Reason For Study Reason For Study: Carotid Stenosis Rt. Velocities/BP Lt. Velocities/BP Prox CCA 52.6/13.3 cm/sec. Prox CCA 56.1/14.2 cm/sec. Mid CCA 50.9/14.2 cm/sec. Mid CCA 48.2/10.7 cm/sec. Dist CCA 29.4/8.0 cm/sec. Dist CCA 31.9/8.2 cm/sec. Prox ICA 43.6/10.9 cm/sec. Prox ICA 75.3/28.6 cm/sec. Mid ICA 48.6/18.0 cm/sec. Mid ICA 77.7/18.8 cm/sec. Dist ICA 63.6/25.8 cm/sec. Dist ICA 66.3/16.8 cm/sec. Rt. ICA/CCA = 1.2. Lt. ICA/CCA = 1.6. Prox ECA 43.6/5.9 cm/sec. Prox ECA 46.5/6.2 cm/sec. Rt. Vert. 27.3/7.3 cm/sec. Lt. Vert. 35.0/12.1 cm/sec. Right Extracranial There is intimal thickening but no significant atherosclerotic plaque noted in the right common carotid artery. There is heterogeneous, irregular atherosclerotic plaque noted in the right internal carotid artery. There is intimal thickening but no significant atherosclerotic plaque noted in the right external carotid artery. Antegrade flow is noted in the right vertebral artery. Left Extracranial There is intimal thickening but no significant atherosclerotic plaque noted in the left common carotid artery. There is heterogeneous, irregular atherosclerotic plaque noted in the left internal carotid artery. The atherosclerotic plaque causes acoustic shadowing. There is heterogeneous, irregular atherosclerotic plaque noted in the left external carotid artery. Antegrade flow is noted in the left vertebral artery. Procedure Carotid Duplex 21877. This is a Carotid Duplex examination using B-mode, color flow and specral Doppler. Exam performed portable in patient room. Preliminary report given to NESSA MORRIS. VL/Carotid Duplex Ultrasound Interpretation Summary Mild (<50%) stenosis right extracranial internal carotid. Mild (<50%) stenosis left extracranial internal carotid. Patent and antegrade vertebrals bilaterally. Limited due to calcific shadowing, alternative imaging may be beneficial Ordering Physician: Robby Salomon Chi Referring Physician: MD Adalid Cross Performed By: Kathy Boss RVT
== END | disposition home or self-care (01) ==
LOC: CVS 08:41
PROVIDERS: PCP Preventive Medicine Occupational Medicine; Referring Provider Family Medicine Geriatric Medicine; Visit Provider Family Medicine Geriatric Medicine
DX: I65.23 Occlusion and stenosis of bilateral carotid arteries (principal)
CPT/HCPCS: 93880

== ENCOUNTER 2025-03-24 18:50 | Inpatient (IN) | payer MEDICARE, SELFPAY ==
[2025-03-24 18:26] VITALS: BP 108/67; PULSE 111; RESP 18; TEMP 36.4; O2SAT 96
[2025-03-24 18:33] VITALS: BMI 36.3
[2025-03-24] MEDS: Senna/Docusate Sodium 1 Tablet PO (21:07)
[2025-03-24] MEDS: Fluticasone/Salmeterol 232-14 Inhaler 1 PUFF INHALATION (21:08)
--- NOTE | 2025-03-24 21:27 | HP.PCM_ITS ---
HPI - General General Date of Admission: 03/24/25 Date of Service: 03/25/25 Chief Complaint: Here for rehabilitation. HPI Narrative ALEKS COSTELLO, is a 74 Male who presents with followin03/18/2025 Admit to [facility] from TCU. 03/18/2025 Plan diagnostic angiogram with possible left carotid stent placement, intravascular stent, cervical carotid artery percutaneous left. 03/18/2025 Dr. Ayala performed interval balloon angioplasty with stent using a distal protective device for left carotid artery stenosis. Patient had recent left sided stroke. 03/19/2025 No acute events overnight, pressors, start DVT prophylaxis, fluid bolus for low blood pressure. 03/20/2025 status post left internal carotid artery stenosis with balloon angioplasty with stent, weaning Levophed. Continue dual antiplatelet therapy. 03/21/2025 Replete potassium, Replete magnesium, Replete Calcium. 03/24/2025 Admit to TCU with debility, here for rehabilitation, strengthening, prior to discharge home with . [facility] Medical History Pulmonary embolism Malignant neoplasm of middle lobe, bronchus or lung Fatigue Hypotension Acquired immunocompromised state Parapneumonic effusion Pneumonia Acute respiratory insufficiency Non-small cell cancer of right lung Tachycardia Dehydration Shortness of breath at rest Wears glasses Wears dentures Alcohol use History of steroid therapy Insulin dependent diabetes mellitus High cholesterol Back pain Syncope Dietary restriction Heartburn CPAP (continuous positive airway pressure) dependence Cancer On home oxygen therapy Chronic cough Leg cramps History of edema History of echocardiogram History of stress test Cardiology follow-up encounter Coag negative Staphylococcus bacteremia Hypoxia Acute hypoxemic respiratory failure Pleural effusion Pneumonia Adenocarcinoma of right lung COPD (chronic obstructive pulmonary disease) Former smoker Diabetes Home Medications ?Medication ?Instructions ?Recorded ?Last Taken ?Type aspirin 81 mg tablet,delayed 81 mg PO DAILY heart heal th 05/02/18 07/06/24 History release bupropion HCl 150 mg 24 hr tablet, 150 mg PO DAILY [facility] 07/07/24 07/06/24 History extended release metformin 1,000 mg tablet 1,000 mg PO BID diabetes 06/30/24 History metoprolol succinate 25 mg 25 mg PO QDAY BP/pulse 11/24 10/18 Unknown History tablet,extended release 24 hr albuterol sulfate 90 mcg/actuation 1 puff inhalation Q 6H PRN 03/04/25 Unknown History aerosol inhaler (Ventolin HFA) shortness of breath or wheezing atorvastatin 80 mg tablet (Lipitor) 80 mg PO QHS suzanne sterol 03/04/25 Unknown History clopidogrel 75 mg tablet 75 mg PO DAILY antiplatelet 03/04/25 Unknown History sennosides 8.6 mg-docusate sodium 1 tab PO BID constip ation #0 tabs 03/18/25 Unknown Rx 50 mg tablet (Stimulant Laxative Plus) guaifenesin 100 mg/5 mL oral liquid 100 mg PO Q4H PRN cold symptoms 03/24/25 Unknown History mometasone-formoterol HFA 200 2 inh inhalation BID SOB 03/24/25 Unknown History mcg-5 mcg/actuation aerosol inhaler (Dulera) oxycodone 5 mg capsule 5 mg PO Q4H pain 03/24/25 Un known History polyethylene glycol 3350 17 17 g PO DAILY PRN constipa tion 03/24/25 Unknown History gram/dose oral powder (ClearLax) tiotropium bromide 2.5 2 inh inhalation DAILY SOB 0 03/24/25 Unknown History mcg/actuation mist for inhalation (Spiriva Respimat) Allergy/AdvReac Type Severity Reaction Status Date / Time No Known Allergies Allergy Verified 03/12/25 13:06 Family History Father Heart disease Diabetes Brother Cancer Throat Grandmother Breast cancer Surgical History History of coronary artery stent placement Hx of surgical biopsy S/P CABG x 3 Social History household members: spouse Smoking Status: Former smoker pack-years: 55 Tobacco: How many years used: 35 how long ago did patient quit smokin second hand exposure: Yes alcohol intake: current alcohol intake frequency: holidays/special occasions only Alcohol type: beer substance use type: does not use caffeine: Yes what type of physical activity do you participate in: none ROS Constitutional Constitutional: Denies chills, fever(s) or weight gain ENT HEENT: Denies headache(s), nasal congestion or nasal discharge Cardiovascular Cardiovascular: Denies chest pain or palpitations Respiratory/Chest Respiratory/Chest: Denies cough, excessive phlegm production or shortness of breath with exertion Gastrointestinal Gastrointestinal: Denies abdominal pain, nausea or vomiting Genitourinary Genitourinary: Denies dysuria Musculoskeletal Musculoskeletal: Denies joint pain or joint swelling Integumentary Integumentary: Denies rash or wounds Neurologic Neurologic: Denies focal weakness, numbness or tingling Psychiatric Psychiatric: Denies anxiety, auditory hallucinations, depression, homicidal ideation or suicidal ideation Vital Signs Vital Signs Vital Signs: 03/24/25 18:26 Temperature 97.5 F L Temperature Source Temporal Pulse Rate 111 H Respiratory Rate 18 Blood Pressure 108/67 Blood Pressure Mean 80 Blood Pressure Source Monitor Blood Pressure Position Semi-Fowlers Blood Pressure Location Left Arm Pulse Ox 96 Oxygen Delivery Method Room Air Weight Weight: 114.844 kg Body Mass Index (BMI) 36.3 Physical Exam Const alert General Appearance: cooperative HEENT normocephalic Eyes PERRL and EOMs intact bilaterally Neck supple, no JVD and no carotid bruits Resp normal respiratory effort, normal air movement and clear to auscultation bilaterally Cardio regular rate and regular rhythm GI normal to inspection, nondistended, normoactive bowel sounds, non-tender and non-distended Extremity normal capillary refill General Extremity: Negative for edema Skin no rashes or lesions noted General Skin Exam: no breakdown Neuro Neuro Narrative: Dense right upper extremity hemiplegia. Speech: speech abnormal Psych affect normal Appearance: appropriate Results Lab / Micro Data 03/25/25 05:48 03/25/25 05:48 Assessment & Plan Assessment/Plan (1) Debility: (2) Left carotid artery stenosis: (3) Stroke: (4) Right hemiplegia: (5) Lung cancer: (6) COPD (chronic obstructive pulmonary disease): (7) Hyperlipidemia, unspecified: (8) Type 2 diabetes mellitus with hyperglycemia: (9) Coronary artery disease: PLAN: Plan 74 year old male with below past medical history significant for left sided stroke with right hemiplegia, hospitalized for left carotid artery balloon angioplasty with stent for left carotid stenosis 03/18/2025, postoperative course complicated by hypotension, electrolyte abnormalities, admitted to TCU with debility, here for rehabilitation, strengthening, prior to discharge home with . * Debility - PT/OT. * Pain - Tylenol 1000mg q6 prn pain (1-5), Oxycodone 5mg q4 prn pain (6-10) * Bowel - Miralax 17gm daily prn, Senna/colace 1 tablet bid. * Adult immunization - Administer pneumonia vaccine, covid vaccine, flu vaccine as appropriate. * DVT prophylaxis - Hold, on DAPT. * COPD - Fluticasone/Salmeterol 232-14 1 puff bid, Incruse 1 puff daily, Albuterol 1 puff q6 prn. * Stroke - Aspirin 81mg daily, Plavix 75mg daily. * Hyperlipidemia - Atorvastatin 80mg qhs. * Cough - Robitussin 5mL q4 prn. * Diabetes Mellitus II - Metformin 1000mg bidcm. * Hypertension - Metoprolol succinate 25mg daily. * Hypokalemia - K 3.0, KCL ER 40meq po x 1 dose, then KCL ER 20meq daily, monitor BMP. The following psychotropic medication was present on admission: Bupropion XL 150mg qam. Psychotropic medication therapy is indicated for a diagnosis of: Depression. Based on my clinical evaluation, continuation of the medication is necessary at this time. Gradual dose reduction plan (select one): ____ GDR will be attempted. Will monitor patient symptoms and behaviors in response to GDR. __x__ GRD contraindicated. 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
[2025-03-25 06:07] LABS: Hematocrit 29.9 % (40-54); Hemoglobin 9.8 g/dL (13.0-16.5); Immature Granulocytes Count 0.030 X10^3/uL (0.0-0.0); Mean Corp Hgb Conc 32.8 g/dL (32-36); Mean Corpuscular Volume 92.9 fL (80-94); Mean Platelet Vol. 8.5 fl (6.2-12.0); NRBC Flagged by Analyzer 0 % (0-5); Platelet Count 329 K/mm3 (150-450); RBC Distribution Width CV 17.4 % (11.6-14.6); RBC Distribution Width SD 58.4 fl (35.1-43.9); Red Blood Count 3.22 M/mm3 (4.6-6.2); White Blood Count 6.2 K/mm3 (4.4-11.0)
[2025-03-25 06:32] LABS: Anion Gap 10 (5-15); BUN 7 mg/dL (4-19); BUN/Creat Ratio 10.6 RATIO (10-20); Calcium,Total 8.5 mg/dL (7.6-11.0); Carbon Dioxide 26.9 mmol/L (21.0-32.0); Chloride 103 mmol/L (98-108); Estimated Creatinine Clearance 105.94 ml/min (50-250); Glucose 161 mg/dL (70-99); Potassium 3.0 mmol/L (3.3-5.1)
--- NOTE | 2025-03-25 08:42 | PCM.PN.DRR ---
Documented by User: Rosalind Mancia 03/25/25 09:18 TCU RX Drug Regimen Review Subjective/Objective Subjective/Objective Subjective: TCU Admission. 74 YOM TCU resident admitted to [facility] for planned diagnostic angiogram. Hospitalized for left carotid artery balloon angioplasty with stent for left carotid stenosis 03/18/2025, postoperative course complicated by hypotension, electrolyte abnormalities. Admitted to TCU with debility for strengthening and rehabilitation. Objective: Allergies No Known Allergies Allergy (Verified 03/12/25 13:06) Current Medications Generic Name Dose Route Start Last Admin Trade Name Freq PRN Reason Stop Dose Admin Acetaminophen 1,000 mg 03/24/25 21:42 Acetaminophen 500 Mg Tablet PO Q6H PRN PRN Pain Score 1-5 Albuterol Sulfate 1 puff 03/24/25 19:11 Albuterol Ih (6.7 Gm) 1 Puff Inhaler INHALATION Q6H PRN shortness of breath or wheezing Aspirin 81 mg 03/25/25 08:00 Aspirin E.C. 81 Mg Tablet PO BREAKFAST [facility] Atorvastatin Calcium 80 mg 03/24/25 22:00 03/24/25 21:07 Atorvastatin Calcium 80 Mg Tablet PO 80 mg QHS [facility] Administration Bupropion HCl 150 mg 03/25/25 10:00 Bupropion (Xl) 150 Mg Tablet.Xl PO DAILY [facility] Clopidogrel Bisulfate 75 mg 03/25/25 10:00 Clopidogrel Bisulfate 75 Mg Tablet PO DAILY [facility] Guaifenesin 5 ml 03/24/25 18:48 Guaifenesin 10 Ml Udc (200mg/10ml) PO Q4H PRN cold symptoms Metformin HCl 1,000 mg 03/25/25 08:00 Metformin Hcl 1,000 Mg Tablet PO BIDCM [facility] Metoprolol Succinate 25 mg 03/25/25 10:00 Metoprolol(Xl)Succ 25 Mg Tablet PO DAILY [facility] Protocol Oxycodone HCl 5 mg 03/24/25 22:06 Oxycodone 5 Mg Tablet PO Q4H PRN PRN Pain Score 6-10 or Pre PT/OT Polyethylene Glycol 17 gm 03/24/25 19:06 Polyethylene Glycol 3350 17 Gm Packet PO DAILY PRN constipation Potassium Chloride 20 meq 03/26/25 08:00 Potassium Chloride Oral Tablet 20 Meq PO BIDCM [facility] Fluticasone/Salmeterol 1 puff 03/24/25 22:00 03/24/25 21:08 Fluticasone/Salmeterol 232-14 Inhaler INHALATION 1 puff BID BETH Administration Senna/Docusate Sodium 1 tablet 03/24/25 22:00 03/24/25 21:07 Senna/Docusate Sodium 1 Tablet PO 1 tablet BID BETH Administration Umeclidinium Bradford 1 puff 03/25/25 10:00 Umeclidinium Bradford Inhaler INHALATION DAILY [facility] Problem List Coronary artery disease (Acute) Lung cancer (Acute) Right hemiplegia (Acute) Hyperlipidemia, unspecified (Acute) Type 2 diabetes mellitus with hyperglycemia (Acute) Left carotid artery stenosis (Acute) Stroke (Acute) Debility (Acute) COPD (chronic obstructive pulmonary disease) (Chronic) Vital Signs Temp Pulse Resp BP Pulse Ox O2 Del Method 97.5 F L 111 H 18 108/67 96 Room Air 03/24/25 18:26 03/24/25 18:26 03/24/25 18:26 03/24/25 18:26 03/24/25 18:26 03/24/25 23:50 Oxygen Delivery Method Room Air Weight: 114.844 kg Body Mass Index (BMI) 36.3 Sodium 140 mmol/L (133-145) 03/25/25 05:48 Potassium 3.0 mmol/L (3.3-5.1) L 03/25/25 05:48 Chloride 103 mmol/L (98-108) 03/25/25 05:48 Carbon Dioxide 26.9 mmol/L (21.0-32.0) 03/25/25 05:48 Anion Gap 10 (5-15) 03/25/25 05:48 BUN 7 mg/dL (4-19) 03/25/25 05:48 Creatinine 0.63 mg/dL (0.70-1.20) L 03/25/25 05:48 Est GFR (MDRD) Non-Af 101 (>60) 03/25/25 05:48 BUN/Creatinine Ratio 10.6 RATIO (10-20) 03/25/25 05:48 Glucose 161 mg/dL (70-99) H 03/25/25 05:48 Assessment/Plan: 1. Pain: acetaminophen 1000mg PO Q6H PRN pain 1-5 and oxycodone 5mg PO Q4H PRN pain 6-10. Please continue to monitor for increased/decreased S/S pain, PRN medication usage. Resident has not required any doses of PRN medication at this time. Pain appears managed at this time. 2. Stroke/HLD/CAD/hypertension: aspirin 81mg PO daily, atorvastatin 80mg PO QHS, clopidogrel 75mg PO Daily, metoprolol succinate 25mg PO Daily. Please continue to monitor for S/S bleeding/bruising, H/H (hgb 9.8g/dL, hct 29.9% on 03/25), lipid panel (last 03/06/25), muscle pain, LFTs (last 02/18/25), BP (last 108/67), pulse (last 111 BPM). 3. COPD: Airduo 1 puff BID, incruse 1 puff daily, albuterol inhaler 1 puff Q6h PRN. No PRN doses given. Please continue to monitor respiratory status, HR, S/S thrush with inhaler use, PRN medication usage, S/S COPD exacerbation. Please rinse mouth with water and spit following Airduo administration to prevent thrush. 4. Diabetes: Metformin 1000mg PO BIDCM. Please continue to monitor blood glucose (last 161mg/dL), A1c (7.2% 03/06/25), GI upset, diarrhea and eGFR (last 101mL/min). 5. Bowel: Senna/Docusate 1 tab PO BID, Miralax 17g PO Daily PRN constipation. No PRN doses given. Please continue to monitor for increased/decreased constipation and/or diarrhea. If diarrhea develops, please discontinue scheduled medications, thank you. Resident has not had a documented BM since admission (<24hrs ago). If the resident does not have a bowel movement in the next 48-72hrs, please consider administering PRN medications. 6. Cough: guaifenesin 200mg/10mL liquid 10mL PO Q4H PRN cough. No PRN doses given. Please continue to monitor for PRN usage and cough. 7. Hypokalemia: potassium chloride 20mEq PO BIDCM and 40mEq PO x1 this morning. Please continue to monitor potassium (last 3 mmol/L 03/25/25). Assessment/Plan for indications treated with psychotropic medications: 1. Depression: Bupropion XL 150mg PO BID. Please see physician note regarding GDR. Monitor for anxiety, agitation and insomnia, seizure activity, nausea, appetite and body weight, headache, suicidal thoughts or behaviors (Boxed Warning). Monitor blood pressure and HR. BP(last 108/67); HR (last 111 BPM). Medication is renally eliminated, monitor renal function periodically. Scr = 0.63 on 03/25/25. Monitor for efficacy including resident symptoms, behaviors and indications of distress. Monitor for tolerability including mental status, cognition, excessive sleepiness, withdrawal or decreased participation in activities and decline in physical functioning. Maximize use of nonpharmacologic/behavioral interventions to facilitate dose reduction or discontinuation as appropriate. Please evaluate the appropriateness of GDR unless contraindicated. If appropriate, GDR should be attempted in 2 separate quarters within the first year of use or admission to TCU. If GDR attempted, monitor resident symptoms/behaviors. Medical chart and medication regimen reviewed. The following medication irregularities or issues were identified: None Date Date of Note: 03/25/25 Documented by User: Dr. Robby Salomon MD 03/25/25 10:42 TCU RX Drug Regimen Review Provider Comments Provider responsibility Provider Comments to Recommendations by Pharmacy Agree
[2025-03-25 08:56] VITALS: BP 119/74; PULSE 105; RESP 18; TEMP 36.3; O2SAT 93
[2025-03-25] MEDS: Aspirin E.C. 81 MG Tablet PO (08:58)
[2025-03-25] MEDS: Potassium Chloride Oral Tablet 20 MEQ 40 MEQ PO (08:58)
[2025-03-25] MEDS: Umeclidinium Bromide Inhaler 1 PUFF INHALATION (08:59)
[2025-03-25] MEDS: Fluticasone/Salmeterol 232-14 Inhaler 1 PUFF INHALATION ×2 (08:59→21:28)
[2025-03-25 09:00] VITALS: BP 119/74; PULSE 105
[2025-03-25] MEDS: Senna/Docusate Sodium 1 Tablet PO ×2 (09:00→21:28)
[2025-03-25] MEDS: Metoprolol(XL)Succ 25 MG Tablet PO (09:00)
[2025-03-25] MEDS: buPROPion (XL) 150 MG TABLET.XL PO (09:01)
--- NOTE | 2025-03-25 12:31 | NURSING ---
Tunnel Elastic Operator Chainstitch Note; Activity Asset: Luisa Merritt is independent in his choice of daily activities. He and his family are aware of his activity wishes and prefers to do his own things in his room. He is able to change the tv, read and use his phone. His family visits daily and will bring him items he may need or want. He welcomes the customer care associate and therapy dog when available. Staff will remind him of weekly activities and respect his right to say no.
[2025-03-25 16:00] VITALS: BP 131/78; PULSE 92; RESP 18; TEMP 36.6; O2SAT 94
--- NOTE | 2025-03-25 19:14 | CASEMGMT ---
Social Work SW met with patient and at bedside. Pt readmitted. SW educated to [facility] insurance with NRD 03/30 and continued stay is not guaranteed with each review; required to provide a 3-day notice. Pt very tearful and frustrated with his deficits. tearful at times as well. Both expressed great optimistic to having pt return home at the end of the stay. SW inquired to about the tasks pt must be able to do in order to return home. stated he needs to assist with transfers, ambulate to the bathroom, and she can assist with the personal care. SW inquired about the steps. confirmed he needs to get into the home with the 3 [address] then down 7 steps to the main living area. Though, shared those goals with ease and nonchalance. SW observed pt and are unrealistic to pt's deficits and the potential lack of progress needed to return home safely, in the time insurance is likely to allow. completed therapy training prior to pt's most recent acute stay, and was not hands-on and overwhelmed with information and observation to pt's needs, the therapist's reported. SW remained encouraging to pt and . Pt is motivated. SW will continue to follow to assist with DC planning and support. Nellie Berg BRATTICE BUILDER C.O.D. AUDIT CLERK
[2025-03-26 06:34] LABS: Anion Gap 10 (5-15); BUN 8 mg/dL (4-19); BUN/Creat Ratio 12.1 RATIO (10-20); Calcium,Total 8.5 mg/dL (7.6-11.0); Carbon Dioxide 26.5 mmol/L (21.0-32.0); Chloride 103 mmol/L (98-108); Estimated Creatinine Clearance 105.94 ml/min (50-250); Glucose 151 mg/dL (70-99); Potassium 3.5 mmol/L (3.3-5.1)
[2025-03-26 08:47] VITALS: BP 101/66; PULSE 102; RESP 18; TEMP 36.2; O2SAT 97
[2025-03-26 08:50] VITALS: PULSE 102
[2025-03-26] MEDS: Aspirin E.C. 81 MG Tablet PO (08:50)
[2025-03-26] MEDS: Fluticasone/Salmeterol 232-14 Inhaler 1 PUFF INHALATION ×2 (08:50→22:47)
[2025-03-26] MEDS: Metoprolol(XL)Succ 25 MG Tablet PO (08:50)
[2025-03-26] MEDS: Potassium Chloride Oral Tablet 20 MEQ PO ×2 (08:50→17:43)
[2025-03-26] MEDS: buPROPion (XL) 150 MG TABLET.XL PO (08:50)
[2025-03-26] MEDS: Umeclidinium Bromide Inhaler 1 PUFF INHALATION (08:51)
--- NOTE | 2025-03-26 15:38 | RAD_ITS ---
PROCEDURE: CHEST PA AND LATERAL 03/26/2025 REASON FOR EXAM: COUGH, FINE CRACKLES. TECHNIQUE: CHEST PA AND LATERAL COMPARISON: Chest radiograph 03/07/2025. FINDINGS: The patient is rotated. Hardware: Sternotomy wires are present. Heart: Stable mild cardiomegaly. Mediastinum: The mediastinal contour is stable. Lungs: Stable right basilar consolidation. No obvious pleural effusion. No pneumothorax. Bones: Degenerative changes are identified within the thoracic spine. RAD/Chest PA and Lateral IMPRESSION: Stable mild cardiomegaly. Unchanged right basilar consolidation. Reading Location: [id number]
[2025-03-26 22:45] VITALS: BP 111/64; PULSE 89; RESP 16; TEMP 36.1; O2SAT 98
[2025-03-26] MEDS: Senna/Docusate Sodium 1 Tablet PO (22:48)
[2025-03-27 05:23] VITALS: BP 111/64; PULSE 78; RESP 16; TEMP 36.2; O2SAT 95
[2025-03-27 06:42] LABS: Anion Gap 11 (5-15); BUN 9 mg/dL (4-19); BUN/Creat Ratio 13.5 RATIO (10-20); Calcium,Total 8.9 mg/dL (7.6-11.0); Carbon Dioxide 25.8 mmol/L (21.0-32.0); Chloride 102 mmol/L (98-108); Estimated Creatinine Clearance 105.94 ml/min (50-250); Glucose 155 mg/dL (70-99); Potassium 3.5 mmol/L (3.3-5.1)
[2025-03-27 08:26] VITALS: BP 128/72; PULSE 95; RESP 20; TEMP 35.9; O2SAT 94
[2025-03-27] MEDS: Aspirin E.C. 81 MG Tablet PO (08:28)
[2025-03-27 08:29] VITALS: PULSE 95
[2025-03-27] MEDS: Fluticasone/Salmeterol 232-14 Inhaler 1 PUFF INHALATION ×2 (08:29→21:17)
[2025-03-27] MEDS: buPROPion (XL) 150 MG TABLET.XL PO (08:29)
[2025-03-27] MEDS: Senna/Docusate Sodium 1 Tablet PO ×2 (08:29→21:17)
[2025-03-27] MEDS: Metoprolol(XL)Succ 25 MG Tablet PO (08:29)
[2025-03-27] MEDS: Potassium Chloride Oral Tablet 20 MEQ PO ×2 (08:29→16:14)
[2025-03-27] MEDS: Umeclidinium Bromide Inhaler 1 PUFF INHALATION (08:30)
[2025-03-28] MEDS: Fluticasone/Salmeterol 232-14 Inhaler 1 PUFF INHALATION ×2 (09:02→20:32)
[2025-03-28] MEDS: Umeclidinium Bromide Inhaler 1 PUFF INHALATION (09:02)
[2025-03-28] MEDS: Potassium Chloride Oral Tablet 20 MEQ PO ×2 (09:02→17:29)
[2025-03-28] MEDS: Senna/Docusate Sodium 1 Tablet PO (09:02)
[2025-03-28] MEDS: buPROPion (XL) 150 MG TABLET.XL PO (09:04)
[2025-03-28] MEDS: Aspirin E.C. 81 MG Tablet PO (09:04)
[2025-03-28 09:12] VITALS: BP 98/53; PULSE 103; RESP 18; TEMP 36.1; O2SAT 94
[2025-03-28 10:57] VITALS: BP 117/73; PULSE 96
[2025-03-28] MEDS: Metoprolol(XL)Succ 25 MG Tablet PO (10:57)
[2025-03-29] MEDS: Umeclidinium Bromide Inhaler 1 PUFF INHALATION (09:44)
[2025-03-29] MEDS: buPROPion (XL) 150 MG TABLET.XL PO (09:44)
[2025-03-29] MEDS: Aspirin E.C. 81 MG Tablet PO (09:44)
[2025-03-29] MEDS: Fluticasone/Salmeterol 232-14 Inhaler 1 PUFF INHALATION ×2 (09:44→20:58)
[2025-03-29] MEDS: Potassium Chloride Oral Tablet 20 MEQ PO ×2 (09:44→17:07)
[2025-03-29 09:50] VITALS: BP 97/62; PULSE 100; RESP 17; TEMP 36.5; O2SAT 96
[2025-03-29 12:00] VITALS: BP 115/69; PULSE 94
[2025-03-29] MEDS: Metoprolol(XL)Succ 25 MG Tablet PO (12:00)
[2025-03-30] MEDS: buPROPion (XL) 150 MG TABLET.XL PO (08:46)
[2025-03-30] MEDS: Aspirin E.C. 81 MG Tablet PO (08:46)
[2025-03-30 08:47] VITALS: BP 102/59; PULSE 93
[2025-03-30] MEDS: Potassium Chloride Oral Tablet 20 MEQ PO ×2 (08:47→16:14)
[2025-03-30] MEDS: Metoprolol(XL)Succ 25 MG Tablet PO (08:47)
[2025-03-30] MEDS: Umeclidinium Bromide Inhaler 1 PUFF INHALATION (08:49)
[2025-03-30] MEDS: Fluticasone/Salmeterol 232-14 Inhaler 1 PUFF INHALATION ×2 (08:49→22:02)
--- NOTE | 2025-03-30 09:24 | NURSING ---
Offered covid vaccine, VIS provided. Resident declines.
[2025-03-30 10:15] VITALS: BP 102/59; PULSE 93; RESP 16; TEMP 36.8; O2SAT 93
[2025-03-30] MEDS: guaiFENesin 10 ML UDC (200MG/10ML) 5 ML PO (22:03)
--- NOTE | 2025-03-31 00:07 | NURSING ---
Pt agitated this shift with med administration/patient care. He frequently swears at staff and per day shift report, he was also having these behaviors towards his . 1:1, pain assessment, and asking yes or no questions attempted to determine why pt was agitated completed with ineffective result. Pt is currently resting in bed, no further needs expressed at this time.
[2025-03-31] MEDS: guaiFENesin 10 ML UDC (200MG/10ML) 5 ML PO ×2 (04:18→22:31)
[2025-03-31 04:28] VITALS: PULSE 89; O2SAT 94
[2025-03-31 08:25] VITALS: BP 106/76; PULSE 105; RESP 18; TEMP 36.4; O2SAT 95
[2025-03-31] MEDS: Aspirin E.C. 81 MG Tablet PO (08:26)
[2025-03-31] MEDS: Umeclidinium Bromide Inhaler 1 PUFF INHALATION (08:27)
[2025-03-31] MEDS: Fluticasone/Salmeterol 232-14 Inhaler 1 PUFF INHALATION ×2 (08:27→22:31)
[2025-03-31] MEDS: Potassium Chloride Oral Tablet 20 MEQ PO ×2 (08:27→17:48)
[2025-03-31 08:28] VITALS: PULSE 105
[2025-03-31] MEDS: Metoprolol(XL)Succ 25 MG Tablet PO (08:28)
[2025-03-31] MEDS: buPROPion (XL) 150 MG TABLET.XL PO (08:28)
[2025-03-31 12:22] VITALS: BP 138/82; PULSE 91
--- NOTE | 2025-03-31 12:30 | NURSING ---
Updated Dr Salomon via secure text. Patient's BP 138/82 HR 91. Patient is due for Midodrine 5mg PO. Per Dr. Salomon, HOLD Midodrine 5mg PO. Order confirmed via secure text.
[2025-03-31 15:29] VITALS: BMI 34.7
--- NOTE | 2025-03-31 16:49 | CASEMGMT ---
Addendum entered by Nellie Berg 04/01/25 11:07: For clarification, pt's documented behaviors are mainly contributed to frustration from pt with lack of ability to express himself. His language is greatly impacted and swearing is an automatic task that is not affected; it is not in malicious intent. SW collaborated with DELIVERY STOCK CLERK who also confirms above statement. Original Note: Social Work SW completed BIMS (04/07) and PHQ-9 () for MDS assessment. Pt limited with language and responses to explore positive responses, but pt does express his frustration with limitations and speech. Staff concur pt is depressed with overall loss of independence. Per CR, pt is prescribed Wellbutrin Nellie Berg COUPLING MACHINE OPERATOR PILOT INSTRUCTOR
[2025-03-31 17:44] VITALS: BP 108/55; PULSE 94
[2025-04-01 05:49] LABS: Hematocrit 33.0 % (40-54); Hemoglobin 10.7 g/dL (13.0-16.5); Immature Granulocytes Count 0.040 X10^3/uL (0.0-0.0); Mean Corp Hgb Conc 32.4 g/dL (32-36); Mean Corpuscular Volume 94.8 fL (80-94); Mean Platelet Vol. 8.8 fl (6.2-12.0); NRBC Flagged by Analyzer 0 % (0-5); Platelet Count 340 K/mm3 (150-450); RBC Distribution Width CV 17.6 % (11.6-14.6); RBC Distribution Width SD 60.1 fl (35.1-43.9); Red Blood Count 3.48 M/mm3 (4.6-6.2); White Blood Count 6.3 K/mm3 (4.4-11.0)
[2025-04-01 07:11] LABS: Anion Gap 13 (5-15); BUN 11 mg/dL (4-19); BUN/Creat Ratio 13.9 RATIO (10-20); Calcium,Total 9.4 mg/dL (7.6-11.0); Carbon Dioxide 25.2 mmol/L (21.0-32.0); Chloride 101 mmol/L (98-108); Estimated Creatinine Clearance 103.50 ml/min (50-250); Glucose 132 mg/dL (70-99); Potassium 4.4 mmol/L (3.3-5.1)
[2025-04-01 08:46] VITALS: PULSE 95
[2025-04-01] MEDS: Fluticasone/Salmeterol 232-14 Inhaler 1 PUFF INHALATION ×2 (08:46→21:59)
[2025-04-01] MEDS: Metoprolol(XL)Succ 25 MG Tablet PO (08:46)
[2025-04-01] MEDS: Potassium Chloride Oral Tablet 20 MEQ PO ×2 (08:46→17:45)
[2025-04-01] MEDS: Aspirin E.C. 81 MG Tablet PO (08:46)
[2025-04-01] MEDS: Umeclidinium Bromide Inhaler 1 PUFF INHALATION (08:46)
[2025-04-01] MEDS: buPROPion (XL) 150 MG TABLET.XL PO (08:47)
--- NOTE | 2025-04-01 08:54 | NURSING ---
Machining Manager Note; MDS for 03/31/2025 Complete
[2025-04-01 08:55] VITALS: BP 102/71; PULSE 95; RESP 18; TEMP 36.6; O2SAT 95
[2025-04-01 13:25] VITALS: BP 102/66; PULSE 94
--- NOTE | 2025-04-01 14:49 | CASEMGMT ---
Social Work IDT met with patient, and sister for care plan meeting. Discussed patient's progress in PT/OT/ST/SN/RDN. Educated to [facility] insurance with NRD 04/03 and continued stay is not guaranteed with each review. Provided pt/family with written communication of insurance process and copay coverage during stay. SW inquired about DC plans, noting pt has 4 BRYCE and 7 steps to living area. Encouraged family to consider after pt is inside the home, how safely pt can get out of the home for appts or in the case of the emergency. Sister expressed understanding. SW offered options. Sister inquired about the normalcy of pt's behaviors, speech, frustration. SW and IDT assisted in explaining the post-stroke symptoms. SW provided with resources from [facility] Stroke and Caregiver Guide to Stroke, Stroke Support Group, nonskilled [facility], [place] and ramp resources. remain quiet but fidgety and tears in her eyes. SW attempted to elicit thoughts from on DC plans but unable to form full phrases to connect thoughts, but did voice the goal is for pt to return home. Pt also very vocal on wanting to DC home. Sister expressed more realism to have prepare for pt to DC home prior to increased improvement in therapy d/t insurance outcome. SW provided with contact information and offered support and assistance. Pt agitated and team ended meeting. SW will continue to follow. Nellie Berg RECTANGULAR TANK COOPER STRIP CATCHER
--- NOTE | 2025-04-02 06:48 | NURSING ---
Poor safety awareness, observed attempting self transfer,repositioned for comfort. Call light within reach. Written communication left for Dr. Salomon.
[2025-04-02] MEDS: Fluticasone/Salmeterol 232-14 Inhaler 1 PUFF INHALATION (08:01)
[2025-04-02 08:02] VITALS: PULSE 106
[2025-04-02] MEDS: Umeclidinium Bromide Inhaler 1 PUFF INHALATION (08:02)
[2025-04-02] MEDS: Metoprolol(XL)Succ 25 MG Tablet PO (08:02)
[2025-04-02] MEDS: Aspirin E.C. 81 MG Tablet PO (08:03)
[2025-04-02] MEDS: Potassium Chloride Oral Tablet 20 MEQ PO ×2 (08:03→18:13)
[2025-04-02] MEDS: buPROPion (XL) 150 MG TABLET.XL PO (08:03)
[2025-04-02 08:10] VITALS: BP 115/86; PULSE 106; RESP 18; TEMP 36.7; O2SAT 93
[2025-04-02 18:18] VITALS: BP 99/69; PULSE 93
--- NOTE | 2025-04-02 18:18 | RAD_ITS ---
PROCEDURE: ABDOMEN SINGLE VIEW 04/02/2025 REASON FOR EXAM: ABDOMINAL PAIN/DISCOMFORT TECHNIQUE: ABDOMEN SINGLE VIEW COMPARISON: Correlation with PET-CT 12/09/2024. FINDINGS: Moderate amount of stool within the right hemicolon. Prominent gaseous distention of the remainder of the colon including the transverse, descending and sigmoid segments, with no visualized rectal gas; findings suggesting distal colonic obstruction in the region of the rectum. Calcified gallstones noted in the right upper quadrant. No discernible free air. Postsurgical changes in the imaged lower thorax with known right lower lung malignancy and median sternotomy, and right lower lobe resection with chain suture material. Mild degenerative changes of the spine. RAD/Abdomen Single View IMPRESSION: Large amount of stool in the right hemicolon. Dilated air-filled remainder of the colon distally with no rectal gas seen, concerning for distal large bowel obstruction at the rectum. Reading Location: [id number]
--- NOTE | 2025-04-02 18:21 | NURSING ---
Pt C/O of Left upper abdomen pain/discomfort pt unable to describe d/t aphasia. Dr. Salomon updated N.O. for KUB. Order text back.
--- NOTE | 2025-04-02 20:48 | NURSING ---
Addendum entered by Andres Kowalski 04/02/25 20:55: Contacted pt outbound call center representative/spouse Tanja Shi about new orders to send pt to ED for evaluation. agreeable to new order and thankful for update. Original Note: Notified Dr. Salomon of KUB results obtained on 04/02. High pitched tinkling sounds heard on auscultation x4 quadrants, more prominent in LLQ. Received instructions from Dr. Salomon to send patient to ED to rule out bowel obstruction.
--- NOTE | 2025-04-02 21:15 | NURSING ---
Pt left unit at 2100 transferred via cot to ED for evaluation of possible bowel obstruction per Dr. Salomon. Report called to ED to nurse Stephanie. Bedside report given to nurse in ED.
--- NOTE | 2025-04-03 00:34 | NURSING ---
Addendum entered by Andres Kowalski 04/03/25 01:04: Pt returned to the unit from ED at 0047 on 04/03/25. New orders from ED received; levofloxacin 500 mg daily for 7 days. ED physician recommended 10 oz of mag citrate to be given in the am, followed by 1 cap of miralax and a full glass of water or fruit juice 4 hours after pt finishes mag citrate. Repeat 1 cap of miralax every 1-2 hours until pt has results. Written communication left for Dr. Salomon regarding new orders. Original Note: ED nurse called report regarding treatment of pt and updates to plan of care. Performed CT, CBC and BMP in ED. Nurse states pt to return to TCU. New diagnoses of pneumonia and severe constipation.
[2025-04-03 08:47] VITALS: BP 118/67; PULSE 98; RESP 17; TEMP 36.5; O2SAT 95
[2025-04-03] MEDS: Umeclidinium Bromide Inhaler 1 PUFF INHALATION (08:50)
[2025-04-03] MEDS: Fluticasone/Salmeterol 232-14 Inhaler 1 PUFF INHALATION ×2 (08:50→20:12)
[2025-04-03] MEDS: Potassium Chloride Oral Tablet 20 MEQ PO ×2 (08:50→18:23)
[2025-04-03] MEDS: Aspirin E.C. 81 MG Tablet PO (08:50)
[2025-04-03 08:51] VITALS: PULSE 98
[2025-04-03] MEDS: buPROPion (XL) 150 MG TABLET.XL PO (08:51)
[2025-04-03] MEDS: Metoprolol(XL)Succ 25 MG Tablet PO (08:51)
[2025-04-03] MEDS: Senna/Docusate Sodium 1 Tablet 2 TABLET PO ×2 (08:51→20:11)
[2025-04-03] MEDS: Polyethylene Glycol 3350 17 GM PACKET PO ×2 (08:58→13:11)
--- NOTE | 2025-04-03 10:15 | RAD_ITS ---
PROCEDURE: ABDOMEN SINGLE VIEW 04/03/2025 REASON FOR EXAM: CONSTIPATION TECHNIQUE: ABDOMEN SINGLE VIEW COMPARISON: Prior CT scan of the abdomen dated April 02, 2000 25. FINDINGS: Bowel gas: Moderate constipation identified with fecal material distributed throughout the colon. No evidence of bowel obstruction. Moderate amount Calcifications: No suspicious calcifications. Bones: There are degenerative changes of the spine. Other: RAD/Abdomen Single View IMPRESSION: Moderate amount of fecal material is seen in the colon. Reading Location: [place] [address]
[2025-04-03 13:05] VITALS: O2SAT 96
[2025-04-03 13:09] VITALS: BP 92/66; PULSE 93
--- NOTE | 2025-04-03 15:09 | NURSING ---
Addendum entered by Azul Paul 04/03/25 15:14: KUB showed moderate stool in colon. Patient was agreeable to take miralax this AM and x1 dose at 1200 along with Senna. Patient did have results. No further complaints of abdominal pain. Will continue to monitor. Original Note: Patient refused enema this morning and mag citrate. Patient had large incontinence with mini shifter as reported by mini shifter and large incontinence with morning. Updated Dr. Salomon via secure text. New order for repeat KUB. Secure text order was confirmed.
[2025-04-03 15:57] VITALS: O2SAT 96
[2025-04-03 18:19] VITALS: BP 89/61; PULSE 100
[2025-04-04] MEDS: Potassium Chloride Oral Tablet 20 MEQ PO ×2 (08:45→17:49)
[2025-04-04] MEDS: Aspirin E.C. 81 MG Tablet PO (08:45)
[2025-04-04] MEDS: Senna/Docusate Sodium 1 Tablet 2 TABLET PO (08:46)
[2025-04-04 08:47] VITALS: PULSE 99
[2025-04-04] MEDS: Metoprolol(XL)Succ 25 MG Tablet PO (08:47)
[2025-04-04] MEDS: buPROPion (XL) 150 MG TABLET.XL PO (08:47)
[2025-04-04] MEDS: Umeclidinium Bromide Inhaler 1 PUFF INHALATION (08:49)
[2025-04-04] MEDS: Fluticasone/Salmeterol 232-14 Inhaler 1 PUFF INHALATION ×2 (08:49→20:36)
[2025-04-04] MEDS: Polyethylene Glycol 3350 17 GM PACKET PO (11:19)
--- NOTE | 2025-04-04 15:32 | NURSING ---
Addendum entered by Joy Murphy 04/04/25 18:45: had positive results for lactulose. currently in bed resting. Original Note: new order this am for 1 dose of lactulose. 1 dose given at 1339. no results at this time. in wheelchair with family in room.
[2025-04-04 15:52] VITALS: BP 107/64; PULSE 99; RESP 18; TEMP 36.6; O2SAT 96
[2025-04-05] MEDS: Aspirin E.C. 81 MG Tablet PO (08:50)
[2025-04-05] MEDS: Potassium Chloride Oral Tablet 20 MEQ PO ×2 (08:50→17:06)
[2025-04-05] MEDS: buPROPion (XL) 150 MG TABLET.XL PO (08:52)
[2025-04-05] MEDS: Umeclidinium Bromide Inhaler 1 PUFF INHALATION (08:58)
[2025-04-05] MEDS: Fluticasone/Salmeterol 232-14 Inhaler 1 PUFF INHALATION ×2 (08:58→20:53)
[2025-04-05 09:05] VITALS: PULSE 113
[2025-04-05] MEDS: Metoprolol(XL)Succ 25 MG Tablet PO (09:05)
[2025-04-05 14:23] VITALS: PULSE 113; RESP 18; TEMP 36.4; O2SAT 95
--- NOTE | 2025-04-06 08:24 | NURSING ---
pt really agitated this morning. refusing meds and vital signs at this moment.
--- NOTE | 2025-04-06 09:10 | MDS.RN ---
Information for the MDS was obtained from review of the clinical record, interview of resident, staff, and direct observation of resident?s care.
--- NOTE | 2025-04-06 09:51 | CASEMGMT ---
Social Work SW notified by POLYMER SCIENTIST that pt was in his room agitated, yelling, cursing, and wanting to go home. - This worker presented to pt's room, and pt's door was closed. SW entered room, with pt's permission, after announcing self and role. SW was clearly agitated and upset as evidenced by raised voice and nonverbal body language sitting at the edge of his chair and eyebrow furrowed. SW sat next to pt and began conversing with pt in a calm voice. With pt's expressive aphasia, pt's vocabulary is limited and primarily holds curse words. Pt voiced his wishes to go home. SW explained for pt to remain to continue with therapy as pt is making progress. Pt still upset with answer. SW validated pt's feelings and empathized with pt's situation. SW redirected pt with conversation on activities of interest. Pt struggled to engage as he remained fixated on leaving. SW offered for pt to move outside of room to [facility] to promote change in scenery and decrease feelings of isolation. Pt agreed. SW pushed pt in recliner chair to [facility]. Offered for pt to play a board game, read the newspaper, or watch TV. Pt chose to watch TV. SW found a show of pt's interest. Offered food or drink and pt declined. SW placed call ibarra and TV remote within pt's reach. TOP CASE ASSEMBLER and FIRE LIEUTENANT currently in [facility] as well. SW offered to follow up with pt and will remain available for future needs. Pt nodded in agreement. Pt appeared in a calmer mood and engaged in the TV show. Nellie Berg MSW CATAPULT AND ARRESTING GEAR OFFICER
[2025-04-06 10:00] VITALS: PULSE 103; RESP 18
--- NOTE | 2025-04-06 10:55 | NURSING ---
this nurse to check on patient again, pt in the dining lounge, pt still refuses morning meds and vital signs at this time
[2025-04-06 12:55] VITALS: O2SAT 92
--- NOTE | 2025-04-06 13:58 | NURSING ---
this nurse in to patients room, still refusing meds & vitals
[2025-04-06 15:18] VITALS: BP 129/86; PULSE 107; RESP 18; O2SAT 95
--- NOTE | 2025-04-06 15:28 | NURSING ---
patient allowed this nurse to get a blood pressure, and that was it. will not allow for assessment to be done, or meds to be given.
--- NOTE | 2025-04-06 18:11 | NURSING ---
patient still refusing medications, aware and in to speak with patient.
[2025-04-06] MEDS: Fluticasone/Salmeterol 232-14 Inhaler 1 PUFF INHALATION (22:14)
[2025-04-07] MEDS: Aspirin E.C. 81 MG Tablet PO (08:49)
[2025-04-07] MEDS: Potassium Chloride Oral Tablet 20 MEQ PO ×2 (08:50→18:24)
[2025-04-07] MEDS: Fluticasone/Salmeterol 232-14 Inhaler 1 PUFF INHALATION ×2 (08:51→22:05)
[2025-04-07] MEDS: Umeclidinium Bromide Inhaler 1 PUFF INHALATION (08:53)
[2025-04-07] MEDS: buPROPion (XL) 150 MG TABLET.XL PO (08:55)
[2025-04-07 09:03] VITALS: BP 82/52; PULSE 114; RESP 18; TEMP 36.4; O2SAT 95
--- NOTE | 2025-04-07 09:45 | CASEMGMT ---
Social Work SW received update from Dr. Salomon after he spoke with pt, pt stating he wanted to and requested SW follow up on hospice consult. - SW met with patient. Pt recalls this worker from yesterday and recalls conversation with Dr. Salomon. Pt stated he was having a bad day yesterday. Pt voiced awareness to wanting to , not doing well or wanting to participate in therapy or care yesterday. pt voiced wanting to live, remain working with therapy and repeatedly asked to go to Inpatient Rehab Unit. SW explained insurance update is pending, and insurance may not approve for continued stay in TCU. If approved, SW will refer to RU. If denied, insurance will deny RU. Pt agreed. SW ensured pt was in a better mental mood today and motivated with therapy and ongoing care. SW requested pt speak with this worker if mood changes. Pt agreed. - SW updated Dr. Salomon and Copper Flotation Operator. Admissions contacted insurance to inquired if IRU would be approved and sent referral to MD. denied for IRU appropriateness. SW will update pt once CARD STRIPPER outcome is received. Nellie Berg FULL STACK SOFTWARE ENGINEER ORACLE FUSION DEVELOPER
[2025-04-07 10:30] VITALS: BP 102/66; PULSE 115
[2025-04-07 10:54] VITALS: BP 104/68; PULSE 118
[2025-04-07 10:55] VITALS: BP 104/68; PULSE 118
[2025-04-07] MEDS: Metoprolol(XL)Succ 25 MG Tablet PO (10:55)
[2025-04-07 18:00] VITALS: BMI 31.6
[2025-04-08 05:45] LABS: Hematocrit 33.8 % (40-54); Hemoglobin 11.1 g/dL (13.0-16.5); Immature Granulocytes Count 0.070 X10^3/uL (0.0-0.0); Mean Corp Hgb Conc 32.8 g/dL (32-36); Mean Corpuscular Volume 92.3 fL (80-94); Mean Platelet Vol. 8.9 fl (6.2-12.0); NRBC Flagged by Analyzer 0 % (0-5); Platelet Count 370 K/mm3 (150-450); RBC Distribution Width CV 17.3 % (11.6-14.6); RBC Distribution Width SD 58.0 fl (35.1-43.9); Red Blood Count 3.66 M/mm3 (4.6-6.2); White Blood Count 7.7 K/mm3 (4.4-11.0)
[2025-04-08 06:27] LABS: Anion Gap 13 (5-15); BUN 13 mg/dL (4-19); BUN/Creat Ratio 16.0 RATIO (10-20); Calcium,Total 9.1 mg/dL (7.6-11.0); Carbon Dioxide 22.5 mmol/L (21.0-32.0); Chloride 101 mmol/L (98-108); Estimated Creatinine Clearance 96.98 ml/min (50-250); Glucose 143 mg/dL (70-99); Potassium 4.3 mmol/L (3.3-5.1)
[2025-04-08] MEDS: Aspirin E.C. 81 MG Tablet PO (08:55)
[2025-04-08] MEDS: Potassium Chloride Oral Tablet 20 MEQ PO ×2 (08:56→17:39)
[2025-04-08] MEDS: Umeclidinium Bromide Inhaler 1 PUFF INHALATION (08:56)
[2025-04-08] MEDS: Fluticasone/Salmeterol 232-14 Inhaler 1 PUFF INHALATION (08:56)
[2025-04-08 08:57] VITALS: BP 105/74; PULSE 111
[2025-04-08] MEDS: buPROPion (XL) 150 MG TABLET.XL PO (08:57)
[2025-04-08] MEDS: Metoprolol(XL)Succ 25 MG Tablet PO (08:57)
[2025-04-08 10:00] VITALS: BP 105/74; PULSE 111; RESP 20; TEMP 36.6; O2SAT 95
[2025-04-09 09:58] VITALS: BP 130/78; PULSE 106; RESP 16; TEMP 35.9; O2SAT 97
[2025-04-09] MEDS: Fluticasone/Salmeterol 232-14 Inhaler 1 PUFF INHALATION ×2 (10:08→20:53)
[2025-04-09] MEDS: Polyethylene Glycol 3350 17 GM PACKET PO (10:09)
[2025-04-09] MEDS: Potassium Chloride Oral Tablet 20 MEQ PO ×2 (10:09→16:18)
[2025-04-09] MEDS: Aspirin E.C. 81 MG Tablet PO (10:09)
[2025-04-09 10:10] VITALS: PULSE 106
[2025-04-09] MEDS: Umeclidinium Bromide Inhaler 1 PUFF INHALATION (10:10)
[2025-04-09] MEDS: Senna/Docusate Sodium 1 Tablet 2 TABLET PO ×2 (10:10→20:53)
[2025-04-09] MEDS: buPROPion (XL) 150 MG TABLET.XL PO (10:10)
[2025-04-09] MEDS: Metoprolol(XL)Succ 25 MG Tablet PO (10:10)
--- NOTE | 2025-04-09 10:37 | CASEMGMT ---
Addendum entered by Nellie Berg 04/09/25 14:13: [facility] is OON. - SW phoned to notify of OON. Offered to send list of INN SNFs with quality and resource data via [employer]. agreed and requested text link. SW completed via [employer]. Original Note: Social Work Pt was yelling out home! repeatedly and increasingly agitated this morning. SW presented to pt's room. SW acknowledged pt's wishes to be home and his frustrations. Pt remained limited to yes/no responses or 2-3 word responses. Pt inquired about going to IRU, by pointing to the ceiling, indicating 4th floor. SW explained RU referral was denied. Pt mad, yelling no!. SW explained it will be difficult for pt to go home and this worker will speak with Tanja, , about DC plans. Pt agreed. SW offered to move pt into [facility], heat up breakfast, or any other needs but pt denied. SW kindly requested for pt to stop yelling, though validating his frustrations. Pt agreed and spoke quieter and more calmly. SW thanked pt and will follow up with . - SW phoned to discuss DC plans. Initialled asked open-ended what 's plans were for pt's DC as there will be a time insurance will issue a DC date. replied, you don't think he is going to get any better? SW stated, yes, there is more progress to be made, but not enough in the time insurance will approve for TCU and for pt to be safe to return home. stated, well I will just have to take him to take him. He wants to go home. He keeps yelling about it. SW confirmed and informed this worker assists in redirecting pt frequently. remained frantic, unrealistic in her thinking and avoidant with conversation. SW acknowledged pt's wish to return home, but that and SW need to have an honest conversation and stop avoiding the DC plans. agreed. SW started with the steps - 4 to enter and 6 to each level of the split-level home. SW requested to get a paper and pen to write down steps to take for homegoing planning. agreed. SW recommended call three companies on prices to install ramps from resources this worker provided last week at POC meeting. SW recommended research stair lift companies and contact them for pricing, reminding she needs two, d/t split-level. austin said asked, he can't do one step?. SW replied, no. stated she cannot pay for cost of ramp or stair lift or help in the home, and she cannot keep working. concluded she cannot care for pt at home and will need a SNF. stated they live close to [facility]. SW commended for realistic thinking, and pivoted back to Medicaid/financial discussion. Pt has a life insurance policy and STORM. SW recommended to contact [employer] to inquire about ch value and liquidation process. Offered for to transfer into burial to cover cost which could be about $10k. denied paying for burial, stating pt will be cremated, and the policy is larger sum than that. SW explained is costs about $10k/mo at a SNF, and the policy and STORM can cover the cost of a SNF until he is spent down, and eligible for JACQUELINE. expressed understanding and repeated back steps. SW stated to contact this worker with any questions and once information is known to help proceed with next steps. agreed. SW to refer to [facility]. - SW sent referral to [facility] via [facility]. Nellie RONW
--- NOTE | 2025-04-09 17:54 | CON.PCM.GI_ITS ---
HPI Consult Data Date of Consult: 04/09/25 HPI Narrative Reason for Consultation: Esophageal dysphagia HPI Narrative: ALEKS COSTELLO, is a 74 y.o.man was found to have to a RML and perihilar node, PET/CT on 01/29/2024 showed hypermetabolic activity in R hilar area. He was diagnosed with non-small cell lung carcinoma favor adenocarcinoma with 7 mediastinal node showed atypical cells. Completed concurrent chemoradiation with carboplatin paclitaxel 05/12/24- 06/25/24. PET/CT on 09/23/2024 showed R hemithorax activity. PET/CT on 12/10/2023 showed Post radiation changes R lung, R hilar node hypermetabolic activity. Started Tagrisso in December 2024. He had worsening cough with SOB. Had CT chest done on 02/13/2028. Developed CVA on 02/18/2025. He is now in TCU for rehabilitation.. He underwent a modified speech study and it displayed Esophageal retention w/ retrograde flow below pharyngoesophageal segment. I was consulted for evaluation of his oropharyngeal and esophageal dysphagia. [facility] Medical History Pulmonary embolism Malignant neoplasm of middle lobe, bronchus or lung Fatigue Hypotension Acquired immunocompromised state Parapneumonic effusion Pneumonia Acute respiratory insufficiency Non-small cell cancer of right lung Tachycardia Dehydration Shortness of breath at rest Wears glasses Wears dentures Alcohol use History of steroid therapy Insulin dependent diabetes mellitus High cholesterol Back pain Syncope Dietary restriction Heartburn CPAP (continuous positive airway pressure) dependence Cancer On home oxygen therapy Chronic cough Leg cramps History of edema History of echocardiogram History of stress test Cardiology follow-up encounter Coag negative Staphylococcus bacteremia Hypoxia Acute hypoxemic respiratory failure Pleural effusion Pneumonia Adenocarcinoma of right lung COPD (chronic obstructive pulmonary disease) Former smoker Diabetes Home Medications ?Medication ?Instructions ?Recorded ?Last Taken ?Type aspirin 81 mg tablet,delayed 81 mg PO DAILY heart heal th 05/02/18 07/06/24 History release bupropion HCl 150 mg 24 hr tablet, 150 mg PO DAILY [facility] [employer] 07/07/24 07/06/24 History extended release metformin 1,000 mg tablet 1,000 mg PO BID diabetes 06/30/24 History metoprolol succinate 25 mg 25 mg PO QDAY BP/pulse 11/24 10/18 Unknown History tablet,extended release 24 hr albuterol sulfate 90 mcg/actuation 1 puff inhalation Q 6H PRN 03/04/25 Unknown History aerosol inhaler (Ventolin HFA) shortness of breath or wheezing atorvastatin 80 mg tablet (Lipitor) 80 mg PO QHS suzanne sterol 03/04/25 Unknown History clopidogrel 75 mg tablet 75 mg PO DAILY antiplatelet 03/04/25 Unknown History sennosides 8.6 mg-docusate sodium 1 tab PO BID constip ation #0 tabs 03/18/25 Unknown Rx 50 mg tablet (Stimulant Laxative Plus) guaifenesin 100 mg/5 mL oral liquid 100 mg PO Q4H PRN cold symptoms 03/24/25 Unknown History oxycodone 5 mg capsule 5 mg PO Q4H PRN pain 5 Unknown History polyethylene glycol 3350 17 17 g PO DAILY PRN constipa tion 03/24/25 Unknown History gram/dose oral powder (ClearLax) fluticasone 232mcg-salmeterol 1 inh inhalation BID 07/18 Unknown History 14mcg/actuation breath act,powder sensor ([employer] Digihaler) midodrine 5 mg tablet 5 mg PO TID 04/02/25 Unknown History potassium chloride 20 mEq 20 meq PO DAILY 04/02/25 Unk nown History tablet,extended release(part/cryst) (Klor-Con M) umeclidinium 62.5 mcg/actuation 1 inh inhalation DAILY 04/02/25 Unknown History blister powder for inhalation (Incruse Ellipta) levofloxacin 500 mg tablet 500 mg PO DAILY #7 tabs 08/18 Unknown Rx Allergy/AdvReac Type Severity Reaction Status Date / Time No Known Allergies Allergy Verified 04/02/25 21:12 Family History Father Heart disease Diabetes Brother Cancer Throat Grandmother Breast cancer Surgical History History of coronary artery stent placement Hx of surgical biopsy S/P CABG x 3 Social History household members: spouse Smoking Status: Former smoker pack-years: 55 Tobacco: How many years used: 35 how long ago did patient quit smokin second hand exposure: Yes alcohol intake: current alcohol intake frequency: holidays/special occasions only Alcohol type: beer substance use type: does not use caffeine: Yes what type of physical activity do you participate in: none ROS Constitutional Constitutional: Denies fatigue, fever(s), poor appetite, weight gain or weight loss Gastrointestinal Gastrointestinal: Denies belching, bloating, change in bowel habits, change in stool character, chewing difficulty, coffee ground emesis, constipation, cramping, diarrhea, dyspepsia, dysphagia, early satiety, excessive flatus, fecal incontinence, heartburn, hematemesis, hematochezia, hemorrhoids, loose stools, melena, nausea, odynophagia, rectal bleeding, tenesmus, vomiting or weight changes Physical Exam Const alert, oriented x3, no apparent distress and healthy appearing General Appearance: cooperative GI normal to inspection, nondistended, normoactive bowel sounds, soft to palpation, non-tender and non-distended Percussion: normal to percussion Rectal Exam: deferred Lab / Micro Data 04/08/25 05:22 04/08/25 05:22 Labs: Laboratory Results - last 24 hr 04/09/25 06:12: POC Glucose 141 H Assessment & Plan Assessment/Plan (1) Debility: (2) Left carotid artery stenosis: (3) Stroke: (4) Right hemiplegia: (5) Lung cancer: (6) COPD (chronic obstructive pulmonary disease): (7) Hyperlipidemia, unspecified: (8) Type 2 diabetes mellitus with hyperglycemia: (9) Coronary artery disease: PLAN: Plan 74 year old male with below past medical history significant for left sided stroke with right hemiplegia, hospitalized for left carotid artery balloon angioplasty with stent for left carotid stenosis 03/18/2025, postoperative course complicated by hypotension, electrolyte abnormalities, admitted to TCU. His video swallow does resemble achalasia. In particular type II achalasia that responds very well to Botox and esophageal dilation. At this time he does not want to undergo any endoscopic procedures. I would recommend PPI 40 mg p.o. twice daily just in case this is secondary to esophageal stricture from acid. Also could be manifestations of eosinophilic esophagitis which can also be treated with dual PPI therapy a day. term use. Charges/Coding Visit Charges Inpatient E&M: 82945 SNF Init L2
[2025-04-09 20:45] VITALS: O2SAT 94
[2025-04-09] MEDS: guaiFENesin 10 ML UDC (200MG/10ML) 5 ML PO (20:52)
[2025-04-10] MEDS: guaiFENesin 10 ML UDC (200MG/10ML) 5 ML PO (01:29)
--- NOTE | 2025-04-10 06:52 | NURSING ---
Pt up coughing throughout this shift, large amount of yellow/white sputum noted. PRN Robitussin admin with ineffective result. Pt is c/o chest congestion that he cannot clear, lung sounds diminished with faint expiratory wheezing heard. Denied PRN albulterol inhaler when offered. Pt was very frustrated/anxious, PRN Ativan admin per order with effective result for short period of time only. Written communication left for Dr. Salomon requesting something for cough/congestion.
--- NOTE | 2025-04-10 07:51 | RAD_ITS ---
EXAM: XR Chest, 2 Views CLINICAL INDICATION: PRODUCTIVE COUGH. TECHNIQUE: Frontal and lateral views of the chest. COMPARISON: No relevant prior studies available. FINDINGS: LUNGS AND PLEURAL SPACES: Right lower lobe and middle lobe airspace disease. No consolidation. No pneumothorax. HEART: Unremarkable. No cardiomegaly. MEDIASTINUM: Unremarkable. Normal mediastinal contour. BONES/JOINTS: Unremarkable. No acute fracture. RAD/Chest PA and Lateral IMPRESSION: Right lower lobe and middle lobe airspace disease. Reading [facility]
[2025-04-10] MEDS: Aspirin E.C. 81 MG Tablet PO (08:39)
[2025-04-10] MEDS: buPROPion (XL) 150 MG TABLET.XL PO (08:39)
[2025-04-10] MEDS: Senna/Docusate Sodium 1 Tablet 2 TABLET PO ×2 (08:41→20:55)
[2025-04-10] MEDS: Polyethylene Glycol 3350 17 GM PACKET PO (08:41)
[2025-04-10] MEDS: Potassium Chloride Oral Tablet 20 MEQ PO ×2 (08:42→17:49)
[2025-04-10] MEDS: Umeclidinium Bromide Inhaler 1 PUFF INHALATION (09:50)
[2025-04-10 09:51] VITALS: BP 98/58; PULSE 103
[2025-04-10] MEDS: Metoprolol(XL)Succ 25 MG Tablet PO (09:51)
[2025-04-10] MEDS: Fluticasone/Salmeterol 232-14 Inhaler 1 PUFF INHALATION ×2 (09:51→20:54)
--- NOTE | 2025-04-10 13:16 | CASEMGMT ---
Addendum entered by Nellie Berg 04/10/25 15:54: SW phoned to inquired about FOC. chose [facility]. SW secured and will contact for SOC. Addendum entered by Nellie Berg 04/10/25 14:46: [facility], [facility], and [facility] can accept pt - all have 4 star ratings. SW phoned twice to attempt to get AOC. Will continue to attempt. Original Note: Social Work Insurance issued LCD 04/12, DC 04/13 SW phoned to notify and explained appeal rights. stated she doesn't like any of the other options for SNFs and will take pt home. SW stated pt is receiving therapy at 1100 today and asked to come into do training. agreed. 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 - SW spoke with after therapy session and confirmed she will take pt home and have help. SW inquired who the help will be. stated her NOELLE and sister. stated therapy practiced a car tx and can transport pt home. SW confirmed DME needs: w/c, HW, BSC. confirmed and prefers DME be delivered to pt's room prior to DC. SW confirmed. SW confirmed skilled [facility] PT/OT/ST/SN/LAM/SW. agreed. SW offered to provide list of options, however, d/t limited insurance INN options and medical complexity, SW offered to refer to all [facility] agencies to determine accepting agencies. SW to inform of accepting agencies, then she can choose AOC. agreed. - IDT updated. TODD referred to [facility] agencies [facility]. SW updated [employer] on DC date and delivery preference. 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
--- NOTE | 2025-04-10 14:27 | DS.PCM_ITS ---
Providers Date of Admission: 03/24/25 Primary Care Physician: Dr. Adalid Cross, DO Consultations 04/02/25 17:28 Consult: Gastroenterology Routine Consulting Provider: [facility] Reason for Consult: Esophageal retention per speech therapy. EMERGENT Consult: No MD Notified: Yes Date Notified: 04/02/25 Time Notified: 17:28 Method of Notification: Text Reason For Visit: SP ANGIOPLASTY AND STENT Diagnosis Discharge Diagnosis (1) Debility: Status: Acute Code(s): R53.81 - Other malaise (2) Left carotid artery stenosis: Status: Acute Code(s): I65.22 - Occlusion and stenosis of left carotid artery (3) Stroke: Status: Acute Code(s): I63.9 - Cerebral infarction, unspecified (4) Right hemiplegia: Status: Acute Code(s): G81.91 - Hemiplegia, unspecified affecting right dominant side (5) Lung cancer: Status: Acute Code(s): C34.90 - Malignant neoplasm of unspecified part of unspecified bronchus or lung (6) COPD (chronic obstructive pulmonary disease): Status: Chronic Code(s): J44.9 - Chronic obstructive pulmonary disease, unspecified (7) Hyperlipidemia, unspecified: Status: Acute Code(s): E78.5 - Hyperlipidemia, unspecified (8) Type 2 diabetes mellitus with hyperglycemia: Status: Acute Code(s): E11.65 - Type 2 diabetes mellitus with hyperglycemia (9) Coronary artery disease: Status: Acute Code(s): I25.10 - Atherosclerotic heart disease of [place] coronary artery without angina pectoris Plan 74 year old male with below past medical history significant for left sided stroke with right hemiplegia, hospitalized for left carotid artery balloon angioplasty with stent for left carotid stenosis 03/18/2025, postoperative course complicated by hypotension, electrolyte abnormalities, admitted to TCU with debility, here for rehabilitation, strengthening, prior to discharge home with . * Debility - PT/OT. * Pain - Tylenol 1000mg q6 prn pain (1-5), Oxycodone 5mg q4 prn pain (6-10) * Bowel - Miralax 17gm daily prn, Senna/colace 1 tablet bid. * Adult immunization - Administer pneumonia vaccine, covid vaccine, flu vaccine as appropriate. * DVT prophylaxis - Hold, on DAPT. * COPD - Fluticasone/Salmeterol 232-14 1 puff bid, Incruse 1 puff daily, Albuterol 1 puff q6 prn. * Stroke - Aspirin 81mg daily, Plavix 75mg daily. * Hyperlipidemia - Atorvastatin 80mg qhs. * Cough - Robitussin 5mL q4 prn. * Diabetes Mellitus II - Metformin 1000mg bidcm. * Hypertension - Metoprolol succinate 25mg daily. * Hypokalemia - K 3.0, KCL ER 40meq po x 1 dose, then KCL ER 20meq daily, monitor BMP. The following psychotropic medication was present on admission: Bupropion XL 150mg qam. Psychotropic medication therapy is indicated for a diagnosis of: Depression. Based on my clinical evaluation, continuation of the medication is necessary at this time. Gradual dose reduction plan (select one): ____ GDR will be attempted. Will monitor patient symptoms and behaviors in response to GDR. __x__ GRD contraindicated. Reason contraindicated: stable chronic longterm use. Medications at Discharge Home Medications aspirin 81 mg tablet,delayed release 81 mg PO DAILY heart health 05/02/18 bupropion HCl 150 mg 24 hr tablet, extended release 150 mg PO DAILY mental health 07/07/24 metformin 1,000 mg tablet 1,000 mg PO BID diabetes 07/07/24 metoprolol succinate 25 mg tablet,extended release 24 hr 25 mg PO QDAY BP/pulse 12/22/24 acetaminophen 500 mg tablet 1,000 mg (2 x 500 mg) PO Q6H PRN PRN Pain Score 1-5 #0 tabs 04/10/25 atorvastatin 80 mg tablet 80 mg PO QHS 30 days #30 tabs 04/10/25 clopidogrel 75 mg tablet 75 mg PO DAILY 30 days #30 tabs 04/10/25 fluticasone 232 mcg-salmeterol 14 mcg/actuation breath activated powdr 1 inh inhalation BID 30 days #1 ea 04/10/25 midodrine 5 mg tablet 5 mg PO TIDCM 30 days #90 tabs 04/10/25 oxycodone 5 mg tablet 5 mg PO Q4H PRN PRN Pain Score 6-10 Or Pre Pt/Ot 7 days #42 tabs 04/10/25 pantoprazole 40 mg tablet,delayed release 40 mg PO BID 30 days #60 tabs 04/10/25 potassium chloride 20 mEq tablet,extended release(part/cryst) 20 meq PO BIDCM 30 days #60 tabs 04/10/25 umeclidinium 62.5 mcg/actuation blister powder for inhalation (Incruse Ellipta) 1 inh inhalation DAILY 30 days #1 ea 04/10/25 Hospital Course Operations None Procedures None Summary of Care Provided Minutes Spent on Discharge: 35 Hospital Course: 74 year old male with below past medical history significant for left sided stroke with right hemiplegia, hospitalized for left carotid artery balloon angioplasty with stent for left carotid stenosis 03/18/2025, postoperative course complicated by hypotension, electrolyte abnormalities, admitted to TCU with debility, here for rehabilitation, strengthening, prior to discharge home with . Discharge home with 04/13/2025, [facility] PT/OT/ST/SN/LAM/SW, Bedside commode, wheelchair, Hemiwalker. Bedside commode: Patient is confined to a single room unable to safely access toilet. Patient is confined to one level of the home environment and there is no toilet on that level. Wheelchair: Patient has mobility limitation that cannot be sufficiently resolved by using a cane or walker. Use of a w/c will improve the participating of ADLs on a regular basis in the home. Patient can independently self-propel. Hemiwalker: Patient is unsafe to use a cane and requires a hemiwalker for ambulation in the home and the community. The patient cannot use a standard walker d/t to disorder or condition that causes restricted use of one hand. Physical Exam Const alert General Appearance: cooperative HEENT normocephalic Eyes PERRL and EOMs intact bilaterally Neck supple, no JVD and no carotid bruits Resp normal respiratory effort, normal air movement and clear to auscultation bilaterally Cardio regular rate and regular rhythm GI normal to inspection, nondistended, normoactive bowel sounds, non-tender and non-distended Extremity normal capillary refill General Extremity: Negative for edema Skin no rashes or lesions noted General Skin Exam: no breakdown Neuro Neuro Narrative: Dense right upper extremity hemiplegia. Speech: speech abnormal Psych affect normal Appearance: appropriate Weight / BMI Weight Weight: 106.141 kg Body Mass Index (BMI) 31.6 ABG / Lab / Microbiology Data 04/08/25 05:22 04/08/25 05:22 Laboratory: Laboratory Results - last 24 hr 04/10/25 05:47: POC Glucose 126 H Radiography Diagnostic Testing: Radiology Impression Chest X-Ray 04/10/25 07:51 IMPRESSION: Right lower lobe and middle lobe airspace disease. Reading Location: [facility] D/C Instructions Discharge Activity: Return to Normal Activity, May Shower and Use Walker Weight Bearing Status: Weight bearing as tolerated Call your doctor if you observe: Fever of 101 or Higher, Inability to urinate, Inability to have a bowel movement, Shortness of breath, Dizziness, Fainting spells, Swelling in the ankles, Chest pain and Uncontrolled pain DC O2, CPAP, BIPAP Needs Home O2 Discharge instructions: No Additional Instructions: Discharge home with 04/13/2025, [facility] PT/OT/ST/SN/LAM/SW, Bedside commode, wheelchair, Hemiwalker. Bedside commode: Patient is confined to a single room unable to safely access toilet. Patient is confined to one level of the home environment and there is no toilet on that level. Wheelchair: Patient has mobility limitation that cannot be sufficiently resolved by using a cane or walker. Use of a w/c will improve the participating of ADLs on a regular basis in the home. Patient can independently self-propel. Hemiwalker: Patient is unsafe to use a cane and requires a hemiwalker for ambulation in the home and the community. The patient cannot use a standard walker d/t to disorder or condition that causes restricted use of one hand. Meaningful Use Info Meaningful Use Meaningful Use Diagnoses (Choose all that apply): Ischemic CVA CVA Therapy Assessed for PT,OT and/or ST?: Yes Ischemic Stroke Antithrombotic order at d/c?: Yes Dx of Atrial fib/flutter?: No Statins at discharge?: Yes If patient is 75 or younger, pt will be discharged on HIGH intensity statin.: Y es Primary Dx Acute Ischemic CVA?: Yes IV thrombolytic ordered during stay?: No Reason IV thrombolytic not ordered: Treatment not Indicated Discharge Plan Admission Admit Date/Time: 03/24/25 18:50 Primary Reason for Your Visit: Debility. Attending Provider: Robby Salomon Chi Primary Care Provider: Adalid Cross Instructions Patient Instructions: Diabetes: Keeping Feet Healthy, Diabetes: Caring for Your Body, Diabetes: Living Your Life, Diabetes Food Tips Ch, Diabetes: Meal Planning, Diabetes Inspect Feet, ED Diabetes- Overview, ED Diabetic Hyperglycemia Additional Instructions / Restrictions: Discharge home with 04/13/2025, [facility] PT/OT/ST/SN/LAM/SW, Bedside commode, wheelchair, Hemiwalker. Bedside commode: Patient is confined to a single room unable to safely access toilet. Patient is confined to one level of the home environment and there is no toilet on that level. Wheelchair: Patient has mobility limitation that cannot be sufficiently resolved by using a cane or walker. Use of a w/c will improve the participating of ADLs on a regular basis in the home. Patient can independently self-propel. Hemiwalker: Patient is unsafe to use a cane and requires a hemiwalker for ambulation in the home and the community. The patient cannot use a standard walker d/t to disorder or condition that causes restricted use of one hand. Discharge Orders/Prescriptions Prescriptions: New atorvastatin 80 mg Tablet 80 mg PO QHS 30 Days Qty: 30 0RF midodrine 5 mg Tablet 5 mg PO TIDCM 30 Days Qty: 90 0RF clopidogrel 75 mg Tablet 75 mg PO DAILY 30 Days Qty: 30 0RF acetaminophen 500 mg Tablet 1,000 mg PO Q6H PRN PRN (Reason: Pain Score 1-5) Qty: 0 0RF potassium chloride 20 mEq Tablet,Er Particles/Crystals 20 meq PO BIDCM 30 Days Qty: 60 0RF Incruse Ellipta 62.5 mcg/actuation Blister With Device 1 inh inhalation DAILY 30 Days Qty: 1 0RF fluticasone propion-salmeterol 232-14 mcg/actuation Aerosol Powdr Breath Activated 1 inh inhalation BID 30 Days Qty: 1 0RF pantoprazole 40 mg Tablet,Delayed Release (Dr/Ec) 40 mg PO BID 30 Days Qty: 60 0RF oxycodone 5 mg Tablet 5 mg PO Q4H PRN PRN (Reason: Pain Score 6-10 Or Pre Pt/Ot) 7 Days Qty: 42 0RF Continued aspirin 81 mg tablet,delayed release (DR/EC) 81 mg PO DAILY metoprolol succinate 25 mg tablet extended release 24 hr 25 mg PO QDAY metformin 1,000 mg tablet 1,000 mg PO BID bupropion HCl 150 mg tablet extended release 24 hr 150 mg PO DAILY Discontinued atorvastatin [Lipitor] 80 mg tablet 80 mg PO QHS clopidogrel 75 mg tablet 75 mg PO DAILY albuterol sulfate [Ventolin HFA] 90 mcg/actuation HFA aerosol inhaler 1 puff INHALATION Q6H PRN (Reason: shortness of breath or wheezing) sennosides-docusate sodium [Stimulant Laxative Plus] 8.6-50 mg Tablet 1 tab PO BID Qty: 0 0RF oxycodone 5 mg capsule 5 mg PO Q4H PRN (Reason: pain) polyethylene glycol 3350 [ClearLax] 17 gram/dose powder 17 g PO DAILY PRN (Reason: constipation) guaifenesin 100 mg/5 mL liquid 100 mg PO Q4H PRN (Reason: cold symptoms) AirDuo Digihaler 232-14 mcg/actuation aero powdr breath act w/sensor 1 inh inhalation BID Incruse Ellipta 62.5 mcg/actuation blister with device 1 inh inhalation DAILY potassium chloride [Klor-Con M20] 20 mEq tablet,ER particles/crystals 20 meq PO DAILY midodrine 5 mg tablet 5 mg PO TID Rx Instructions: do not give last dose of day after 6PM or within 4 hrs of bedtime levofloxacin [levofloxacin] 500 mg tablet 500 mg PO DAILY Qty: 7 0RF Referrals / Follow Up: [facility] [Other] - 06/02/25 10:45 am (1 st floor registration desk Winnie Vikash at 1pm ) Adalid Cross DO [Primary Care Provider] - Disposition Disposition (needs filled in before D/C Order can be placed): Home Health Service
[2025-04-10 15:19] VITALS: BP 98/58; PULSE 103; RESP 16; TEMP 36.9; O2SAT 96
[2025-04-11] MEDS: Aspirin E.C. 81 MG Tablet PO (09:23)
[2025-04-11] MEDS: Potassium Chloride Oral Tablet 20 MEQ PO ×2 (09:24→17:31)
[2025-04-11] MEDS: Fluticasone/Salmeterol 232-14 Inhaler 1 PUFF INHALATION ×2 (09:24→21:44)
[2025-04-11] MEDS: Umeclidinium Bromide Inhaler 1 PUFF INHALATION (09:25)
[2025-04-11] MEDS: buPROPion (XL) 150 MG TABLET.XL PO (09:28)
[2025-04-11 09:36] VITALS: BP 102/69; PULSE 110; RESP 18; TEMP 36.1
[2025-04-11 10:38] VITALS: BP 107/64; PULSE 99
[2025-04-11] MEDS: Metoprolol(XL)Succ 25 MG Tablet PO (10:38)
[2025-04-11 10:40] VITALS: BP 107/67; PULSE 99
[2025-04-11 13:20] VITALS: BP 90/56
[2025-04-11 22:00] VITALS: PULSE 100; RESP 16; O2SAT 98
[2025-04-12] MEDS: Aspirin E.C. 81 MG Tablet PO (08:35)
[2025-04-12] MEDS: Fluticasone/Salmeterol 232-14 Inhaler 1 PUFF INHALATION ×2 (08:36→21:36)
[2025-04-12] MEDS: Potassium Chloride Oral Tablet 20 MEQ PO ×2 (08:36→16:37)
[2025-04-12] MEDS: Umeclidinium Bromide Inhaler 1 PUFF INHALATION (08:37)
[2025-04-12 08:41] VITALS: BP 105/72; PULSE 94
[2025-04-12] MEDS: Metoprolol(XL)Succ 25 MG Tablet PO (08:41)
[2025-04-12] MEDS: buPROPion (XL) 150 MG TABLET.XL PO (08:41)
[2025-04-12 08:51] VITALS: BP 105/72; PULSE 94; RESP 18; TEMP 36.7; O2SAT 95
--- NOTE | 2025-04-12 08:51 | NURSING ---
SENIOR MANAGING DIRECTOR IN ROOM AND THIS NURSE IN [place] HEARD PT YELLING GOD DAM IT AND CALLED SENIOR MANAGING DIRECTOR [employer]. THIS NURSE TO ROOM AND STATED TO PT THAT THE AIDS ARE TRYING TO HELP HIM AND HAVE NOT WORKED THE FLOOR BEFORE AND NOT SURE WANT HE NEEDS AND TO PLEASE BE PATENT WITH THEM. THIS NURSE STAYED IN ROOM TO LET AIDS KNOW WHAT PT WAS TRYING TO SAY. PT MORE CORPORATIVE. ALSO STATED TO PT HIS YELLING IS DISTURBING THE NEAR BY PTS. PT STATED OK SORRY. WILL CONTINUE TO MONITOR. RN AWARE
[2025-04-12 11:15] VITALS: PULSE 86; RESP 18; O2SAT 97
[2025-04-12 13:40] VITALS: BP 107/70; PULSE 100
[2025-04-13 04:16] VITALS: PULSE 94; RESP 16; O2SAT 95
[2025-04-13] MEDS: Aspirin E.C. 81 MG Tablet PO (08:46)
[2025-04-13] MEDS: Potassium Chloride Oral Tablet 20 MEQ PO (08:47)
[2025-04-13] MEDS: Fluticasone/Salmeterol 232-14 Inhaler 1 PUFF INHALATION (08:47)
[2025-04-13] MEDS: Umeclidinium Bromide Inhaler 1 PUFF INHALATION (08:47)
[2025-04-13 08:48] VITALS: PULSE 91
[2025-04-13] MEDS: buPROPion (XL) 150 MG TABLET.XL PO (08:48)
[2025-04-13] MEDS: Metoprolol(XL)Succ 25 MG Tablet PO (08:48)
--- NOTE | 2025-04-13 11:28 | CASEMGMT ---
Social Work SW completed BIMS (04/07) and PHQ-9 () for MDS assessment. Pt is looking forward to NH today. Nellie Berg SALES AND SERVICE ENGINEER OPERATIONS SUPPORT MANAGER
[2025-04-13 11:44] VITALS: BP 109/69; PULSE 91; RESP 18; TEMP 36.8; O2SAT 96
== END 2025-04-13 11:45 | disposition home health service (06) | DRG 949 ==
PROVIDERS: Admitting Provider Family Medicine Geriatric Medicine; PCP Preventive Medicine Occupational Medicine; Visit Provider Family Medicine Geriatric Medicine
DX: Z48.812 Encounter for surgical aftercare following surgery on the circulatory system (principal); I69.351 Hemiplegia and hemiparesis following cerebral infarction affecting right dominant side; C34.90 Malignant neoplasm of unspecified part of unspecified bronchus or lung; K22.0 Achalasia of cardia; E11.65 Type 2 diabetes mellitus with hyperglycemia; J44.9 Chronic obstructive pulmonary disease, unspecified; F32.A Depression, unspecified; I10 Essential (primary) hypertension; E78.00 Pure hypercholesterolemia, unspecified; E87.6 Hypokalemia; I25.10 Atherosclerotic heart disease of native coronary artery without angina pectoris; I95.1 Orthostatic hypotension; F41.9 Anxiety disorder, unspecified; J40 Bronchitis, not specified as acute or chronic; Z95.5 Presence of coronary angioplasty implant and graft; Z79.899 Other long term (current) drug therapy; Z87.891 Personal history of nicotine dependence; Z79.51 Long term (current) use of inhaled steroids; Z79.84 Long term (current) use of oral hypoglycemic drugs; Z86.711 Personal history of pulmonary embolism; Z79.82 Long term (current) use of aspirin; Z79.02 Long term (current) use of antithrombotics/antiplatelets; Z95.1 Presence of aortocoronary bypass graft; R13.12 Dysphagia, oropharyngeal phase
CPT/HCPCS: 36415; 71046; 74018; 80048; 82962; 85025; 92507; 92523; 97110; 97116; 97162; 97166; 97530; 97535; 97802

== ENCOUNTER 2025-04-02 21:11 | Emergency (ER) | payer MEDICARE, SELFPAY ==
[2025-04-02 21:12] VITALS: BP 146/87; PULSE 95; RESP 14; TEMP 36.6; O2SAT 96; BMI 34.0
--- NOTE | 2025-04-02 21:26 | EDS_ITS ---
HPI History of Present Illness Chief Complaint: Constipation Detail of Chief Complaint: Patient was sent from TCU for constipation Informant: other (Notes from TCU and interpretation of image) Onset/Context/Timing Onset: - Quality: X-ray revealed significant mount of stool right side the colon and concern Location: GI Current Severity: Patient complains of fullness. He is not a good informant. Worsened by: Unknown Relieved by: Unknown Associated Symptoms Associated Symptoms: Constipated Narrative Narrative: Patient is a 74-year-old male. He was sent to the ER from TCU because of x-ray read that revealed significant stool on the right side and possible distal colonic obstruction since there is no air in the rectal area. X-ray was reviewed by me. He has no amount of stool right hemicolon with distended bowel. There is no true air-fluid levels. History is very limited. Nurse informed me that patient was verbally abusive towards her. He stared at me. He basically acknowledge that his abdomen feels full. He was not able to give much more of a history. He denied fever or chills. He denied cardiac or respiratory symptoms. Prior similar symptoms: No Recent Illness/Hospitalization: Yes [facility] Medical History Pulmonary embolism Malignant neoplasm of middle lobe, bronchus or lung Fatigue Hypotension Acquired immunocompromised state Parapneumonic effusion Pneumonia Acute respiratory insufficiency Non-small cell cancer of right lung Tachycardia Dehydration Shortness of breath at rest Wears glasses Wears dentures Alcohol use History of steroid therapy Insulin dependent diabetes mellitus High cholesterol Back pain Syncope Dietary restriction Heartburn CPAP (continuous positive airway pressure) dependence Cancer On home oxygen therapy Chronic cough Leg cramps History of edema History of echocardiogram History of stress test Cardiology follow-up encounter Coag negative Staphylococcus bacteremia Hypoxia Acute hypoxemic respiratory failure Pleural effusion Pneumonia Adenocarcinoma of right lung COPD (chronic obstructive pulmonary disease) Former smoker Diabetes Home Medications ?Medication ?Instructions ?Recorded ?Last Taken ?Type aspirin 81 mg tablet,delayed 81 mg PO DAILY heart heal th 05/02/18 07/06/24 History release bupropion HCl 150 mg 24 hr tablet, 150 mg PO DAILY [facility] 07/07/24 07/06/24 History extended release metformin 1,000 mg tablet 1,000 mg PO BID diabetes 06/30/24 History metoprolol succinate 25 mg 25 mg PO QDAY BP/pulse 11/24 10/18 Unknown History tablet,extended release 24 hr albuterol sulfate 90 mcg/actuation 1 puff inhalation Q 6H PRN 03/04/25 Unknown History aerosol inhaler (Ventolin HFA) shortness of breath or wheezing atorvastatin 80 mg tablet (Lipitor) 80 mg PO QHS suzanne sterol 03/04/25 Unknown History clopidogrel 75 mg tablet 75 mg PO DAILY antiplatelet 03/04/25 Unknown History sennosides 8.6 mg-docusate sodium 1 tab PO BID constip ation #0 tabs 03/18/25 Unknown Rx 50 mg tablet (Stimulant Laxative Plus) guaifenesin 100 mg/5 mL oral liquid 100 mg PO Q4H PRN cold symptoms 03/24/25 Unknown History oxycodone 5 mg capsule 5 mg PO Q4H PRN pain 5 Unknown History polyethylene glycol 3350 17 17 g PO DAILY PRN constipa tion 03/24/25 Unknown History gram/dose oral powder (ClearLax) fluticasone 232mcg-salmeterol 1 inh inhalation BID 07/18 Unknown History 14mcg/actuation breath act,powder sensor (AirDuo Digihaler) midodrine 5 mg tablet 5 mg PO TID 04/02/25 Unknown History potassium chloride 20 mEq 20 meq PO DAILY 04/02/25 Unk nown History tablet,extended release(part/cryst) (Klor-Con M) umeclidinium 62.5 mcg/actuation 1 inh inhalation DAILY 04/02/25 Unknown History blister powder for inhalation (Incruse Ellipta) levofloxacin 500 mg tablet 500 mg PO DAILY #7 tabs 08/18 Unknown Rx Allergy/AdvReac Type Severity Reaction Status Date / Time No Known Allergies Allergy Verified 04/02/25 21:12 Family History Father Heart disease Diabetes Brother Cancer Throat Grandmother Breast cancer Surgical History History of coronary artery stent placement Hx of surgical biopsy S/P CABG x 3 Social History household members: spouse Smoking Status: Former smoker pack-years: 55 Tobacco: How many years used: 35 how long ago did patient quit smokin second hand exposure: Yes alcohol intake: current alcohol intake frequency: holidays/special occasions only Alcohol type: beer substance use type: does not use caffeine: Yes what type of physical activity do you participate in: none ROS ROS ED Review of Systems ROS Unobtainable: due to mental status EXAM Physical Exam Const Vital Signs: 04/02/25 21:12 04/02/25 23:12 Temperature 98 F Temperature Source Temporal Pulse Rate 95 78 Respiratory Rate 14 16 Blood Pressure 146/87 H 156/106 H Blood Pressure Mean 106 122 Pulse Ox 96 97 Oxygen Delivery Method Room Air Room Air Positive well nourished, well developed and unkempt Constitutional Narrative: Vital signs are marked for an elevated blood pressure. General Appearance ED: unkempt and well developed; Negative for pallor HEENT Reports moist mucous membranes HEENT Narrative: Head is atraumatic normocephalic. Ears normal. Nares patent Eyes PERRL and EOMs intact bilaterally Neck no lymphadenopathy, supple and no JVD Chest Wall inspection of chest normal and palpation of chest normal Resp normal respiratory effort and clear to auscultation bilaterally Cardio regular rate, regular rhythm, S1 normal heart sound, S2 normal heart sound and no murmurs GI GI Narrative: Abdomen is distended, tympanitic. Bowel sounds are diminished. Rectal exam reveals no stool in the vault. Palpation: soft Narrative: External genitalia normal. Extremity General Extremety ED: Yes edema; Negative for tenderness General Extremity: edema Neuro No oriented x3 and CN's II-XII intact bilaterally Sensorium / Orientation: Negative for alert Psych Appearance: unkempt Attitude: agitated Skin no rashes or lesions noted and no wounds General Skin Exam: Negative for jaundice or pallor MDM MDM MDM Narrative Medical decision making narrative: In light of the x-ray read we will obtain CT of the abdomen and pelvis with IV contrast to assess for obstruction. There is evidence on the abdominal film of constipation. Since he appears somewhat pale CBC was obtained since H&H as well as white count. BMP to assess renal function since he will need a CAT scan with IV contrast. History & Record Review Additional record(s) reviewed:: Prior inpatient record and Prior outpatient record (Dr. Aime's H&P was reviewed.) Lab Data Attestation: I reviewed the patient's lab results. Lab results narrative: CBC is remarkable for mild anemia. BMP is remarkable for slight elevation of glucose. Labs: Laboratory Results - last 24 hr 04/02/25 21:50 WBC 7.9 RBC 3.59 L Hgb 10.9 L Hct 33.4 L MCV 93.0 MCH 30.4 MCHC 32.6 RDW Std Deviation 60.6 H RDW Coeff of Ino 17.5 H Plt Count 367 MPV 8.6 Immature Gran % (Auto) 1.000 H Neut % (Auto) 65.6 Lymph % (Auto) 16.3 L [place] % (Auto) 12.7 H Eos % (Auto) 3.6 Baso % (Auto) 0.8 Absolute Neuts (auto) 5.2 Absolute Lymphs (auto) 1.28 Nucleated RBC % 0 Sodium 137 Potassium 4.3 Chloride 100 Carbon Dioxide 21.6 Anion Gap 15 BUN 14 Creatinine 0.93 Estim Creat Clear Calc 93.47 Est GFR (MDRD) Non-Af 87 BUN/Creatinine Ratio 15.2 Glucose 120 H Calcium 9.5 Radiography Diagnostic Testing: Clinical Impression(s) from Imaging Studies Abdomen/Pelvis CT 04/02/25 22:58 IMPRESSION: Marked fecal loading of the caecum and ascending colon with gaseous distention of the transverse and to less extent descending colon associated with fluid distension of the sigmoid colon and rectum. No pathological air fluid levels formation. Mild uniform wall thickening of the rectum and anal canal. Advise clinical correlation. Gall bladder calculi. No cholecystitis. Enlarged prostate. Reduced volume of the right hemithorax with right pulmonary consolidative densities and interstitial thickening associated with pleural thickening. Reading Location: [place] [id number] The interpretation by radiologist was reviewed. There is evidence of pulmonary consolidation in the right lower lobe. Discharge Plan Triage Chief Complaint: Constipation ED Provider: Kwame Chapman Dx/Rx/DC Orders Clinical Impression: Infiltrate of lower lobe of right lung present on imaging study, Cholelithiasis, Constipation, MALI (obstructive sleep apnea), Essential (primary) hypertension, Hyperlipidemia, unspecified, Coronary artery disease status post coronary stent insertion, Type 2 diabetes mellitus, Adult BMI 34.0-34.9 kg/sq m, History of COPD Instructions: ED Constipation (Adult), ED Pneumonia (Adult) Prescriptions: New levofloxacin [levofloxacin] 500 mg tablet 500 mg PO DAILY Qty: 7 0RF No Action aspirin 81 mg tablet,delayed release (DR/EC) 81 mg PO DAILY metoprolol succinate 25 mg tablet extended release 24 hr 25 mg PO QDAY atorvastatin [Lipitor] 80 mg tablet 80 mg PO QHS clopidogrel 75 mg tablet 75 mg PO DAILY albuterol sulfate [Ventolin HFA] 90 mcg/actuation HFA aerosol inhaler 1 puff INHALATION Q6H PRN (Reason: shortness of breath or wheezing) sennosides-docusate sodium [Stimulant Laxative Plus] 8.6-50 mg Tablet 1 tab PO BID Qty: 0 0RF oxycodone 5 mg capsule 5 mg PO Q4H PRN (Reason: pain) polyethylene glycol 3350 [ClearLax] 17 gram/dose powder 17 g PO DAILY PRN (Reason: constipation) guaifenesin 100 mg/5 mL liquid 100 mg PO Q4H PRN (Reason: cold symptoms) AirDuo Digihaler 232-14 mcg/actuation aero powdr breath act w/sensor 1 inh inhalation BID Incruse Ellipta 62.5 mcg/actuation blister with device 1 inh inhalation DAILY potassium chloride [Klor-Con M20] 20 mEq tablet,ER particles/crystals 20 meq PO DAILY midodrine 5 mg tablet 5 mg PO TID Rx Instructions: do not give last dose of day after 6PM or within 4 hrs of bedtime metformin 1,000 mg tablet 1,000 mg PO BID bupropion HCl 150 mg tablet extended release 24 hr 150 mg PO DAILY Primary Care Provider: Adalid Cross Referrals: Adalid Cross DO [Primary Care Provider] - Activity Restrictions/Additional Instructions: 1. 10 ounces of mag citrate in the morning. 2. 4 hours after Ms. Patel drinks mag citrate 1 cap of MiraLAX and a full glass of water or fruit juice. Repeat 1 cap of MiraLAX in full glass of beverage of choice every 1-2 hours until Mr. Shi has results. 3. Mr. Shi has an infiltrate right lower lobe. Recommend levofloxacin 500 mg daily for 7 days Print Language: Romanian Disposition Disposition: [facility] Facility
[2025-04-02 21:58] LABS: Hematocrit 33.4 % (40-54); Hemoglobin 10.9 g/dL (13.0-16.5); Immature Granulocytes Count 0.080 X10^3/uL (0.0-0.0); Mean Corp Hgb Conc 32.6 g/dL (32-36); Mean Corpuscular Volume 93.0 fL (80-94); Mean Platelet Vol. 8.6 fl (6.2-12.0); NRBC Flagged by Analyzer 0 % (0-5); Platelet Count 367 K/mm3 (150-450); RBC Distribution Width CV 17.5 % (11.6-14.6); RBC Distribution Width SD 60.6 fl (35.1-43.9); Red Blood Count 3.59 M/mm3 (4.6-6.2); White Blood Count 7.9 K/mm3 (4.4-11.0)
[2025-04-02 22:29] LABS: Anion Gap 15 (5-15); BUN 14 mg/dL (4-19); BUN/Creat Ratio 15.2 RATIO (10-20); Calcium,Total 9.5 mg/dL (7.6-11.0); Carbon Dioxide 21.6 mmol/L (21.0-32.0); Chloride 100 mmol/L (98-108); Estimated Creatinine Clearance 93.47 ml/min (50-250); Glucose 120 mg/dL (70-99); Potassium 4.3 mmol/L (3.3-5.1)
--- NOTE | 2025-04-02 22:58 | CT_ITS ---
PROCEDURE: ABDOMEN/PELVIS W IV CONT ONLY 04/03/2025 REASON FOR EXAM: CONCERN FOR BOWEL OBSTRUCTION ON KUB TECHNIQUE: ABDOMEN/PELVIS W IV CONT ONLY Coronal and Sagittal reconstruction series were provided. CONTRAST: VOLUME: mL One or more dose reduction techniques were used (e.g., Automated exposure control, adjustment of the mA and/or kV according to patient size, use of iterative reconstruction technique. RADIATION DOSE SUMMARY: CTDlvol: mGy DLP: mGycm COMPARISON: none FINDINGS: Marked fecal loading of the caecum and ascending colon with gaseous distention of the transverse and to less extent descending colon associated with fluid distension of the sigmoid colon and rectum. No pathological air fluid levels formation. Mild uniform wall thickening of the rectum and anal canal. Advise clinical correlation. The small bowel loops are unremarkable. The stomach is unremarkable. Average sized liver showing homogenous parenchymal attenuation. No dilated intra or extra-hepatic biliary tracts. Gall bladder calculi. Clear surrounding fat planes with no sizeable collections. Fatty changes of the pancreas with clear surrounding fat planes. The spleen, adrenal glands and IVC are unremarkable. Vascular atheromatous calcifications Both kidneys are of average size and showing smooth outline with preserved parenchymal thickness. No renal calculi. No hydronephrosis. Bilateral renal hypodense cortical cysts and perinephric fat stranding. Distension of the urinary bladder showing minimal uniform mural thickening with no obvious masses. Enlarged prostate with calcifications. No ascites or free air. No obvious pathologically enlarged lymph nodes. Scanned osseous structures show no osseous destruction. Thoracolumbar spondylosis. Scanned lung bases show reduced volume of the right hemithorax with right pulmonary consolidative densities and interstitial thickening associated with pleural thickening. Cardiomegaly with Sternotomy suture wires. CT/Abdomen/Pelvis W IV Cont ONLY IMPRESSION: Marked fecal loading of the caecum and ascending colon with gaseous distention of the transverse and to less extent descending colon associated with fluid distension of the sigmoid colon and rectum. No path ological air fluid levels formation. Mild uniform wall thickening of the rectum and anal canal. Advise clinical cor relation. Gall bladder calculi. No cholecystitis. Enlarged prostate. Reduced volume of the right hemithorax with right pulmonary consolidative densi ties and interstitial thickening associated with pleural thickening. Reading [facility]
[2025-04-02 23:12] VITALS: BP 156/106; PULSE 78; RESP 16; O2SAT 97
[2025-04-03 00:31] VITALS: BP 155/96; PULSE 87; RESP 18; TEMP 36.8; O2SAT 99
== END 2025-04-03 00:47 | disposition skilled nursing facility (03) ==
PROVIDERS: Emergency Provider Emergency Medicine; PCP Preventive Medicine Occupational Medicine; Visit Provider Emergency Medicine
DX: K59.00 Constipation, unspecified (principal); J44.9 Chronic obstructive pulmonary disease, unspecified; Z79.4 Long term (current) use of insulin; E11.65 Type 2 diabetes mellitus with hyperglycemia; G47.33 Obstructive sleep apnea (adult) (pediatric); I25.10 Atherosclerotic heart disease of native coronary artery without angina pectoris; E78.5 Hyperlipidemia, unspecified; K80.20 Calculus of gallbladder without cholecystitis without obstruction; R91.8 Other nonspecific abnormal finding of lung field; I10 Essential (primary) hypertension; D64.9 Anemia, unspecified; Z79.82 Long term (current) use of aspirin; Z79.84 Long term (current) use of oral hypoglycemic drugs; Z79.899 Other long term (current) drug therapy; Z86.711 Personal history of pulmonary embolism; Z87.891 Personal history of nicotine dependence; Z95.5 Presence of coronary angioplasty implant and graft
CPT/HCPCS: 74177; 80048; 85025; 99283; Q9967; A4216

== ENCOUNTER → 2025-06-26 | Outpatient (CLI) | payer MEDICARE, SELFPAY ==
--- NOTE | 2025-06-26 12:48 | CDU_ITS ---
Reason For Study Reason For Study: Carotid Stenosis, s/p Lt Carotid Stent Rt. Velocities/BP Lt. Velocities/BP Prox CCA 66/15 cm/sec. Prox CCA 60/13 cm/sec. Mid CCA 73/13 cm/sec. Mid CCA 43/11 cm/sec. Dist CCA 48/9 cm/sec. Dist CCA 40/11 cm/sec. Prox ICA 58/19 cm/sec. Lt Carotid Stent Mid ICA 54/14 cm/sec. Pre Stent: 43/11 cm/s Dist ICA 67/19 cm/sec. Prox Stent: 40/11 cm/s Rt. ICA/CCA = 0.9. Mid Stent: 54/16 cm/s Prox ECA 70/6 cm/sec. Distal Stent: 40/12 cm/s Rt. Vert. 28/7 cm/sec. Post Stent: 68/20 cm/s. Prox ICA 54/16 cm/sec. Mid ICA 40/12 cm/sec. Dist ICA 68/20 cm/sec. Lt. ICA/CCA = 1.6. Prox ECA 58/5 cm/sec. Lt. Vert. 32/9 cm/sec. Right Extracranial There is heterogeneous, irregular atherosclerotic plaque noted in the right common carotid artery. There is heterogeneous, irregular atherosclerotic plaque noted in the right internal carotid artery. There is intimal thickening but no significant atherosclerotic plaque noted in the right external carotid artery. Antegrade flow is noted in the right vertebral artery. Left Extracranial There is heterogeneous, irregular atherosclerotic plaque noted in the left common carotid artery. Stent noted Lt ICA. There is intimal thickening but no significant atherosclerotic plaque noted in the left external carotid artery. Antegrade flow is noted in the left vertebral artery. Procedure Carotid Duplex 52423. This is a Carotid Duplex examination using B-mode, color flow and specral Doppler. Exam performed in department. VL/Carotid Duplex Ultrasound Interpretation Summary Mild (<50%) stenosis right extracranial internal carotid. Mild (<50%) stenosis left extracranial internal carotid. Patent and antegrade vertebrals bilaterally. Ordering Physician: Tanmay Almodovar Referring Physician: Salvador Castro Performed By: Haydee Awan, LILY, RVT
== END | disposition home or self-care (01) ==
LOC: CVS 12:44
PROVIDERS: PCP Student in an Organized Health Care Education/Training Program; Referring Provider Surgery Trauma Surgery; Visit Provider Surgery Trauma Surgery
DX: I63.232 Cerebral infarction due to unspecified occlusion or stenosis of left carotid arteries (principal); Z95.828 Presence of other vascular implants and grafts
CPT/HCPCS: 93880

== ENCOUNTER → 2025-08-14 | Outpatient (CLI) | payer MEDICARE, SELFPAY | END | disposition home or self-care (01) | LOC: SL 10:05 | PROVIDERS: PCP Student in an Organized Health Care Education/Training Program; Visit Provider Nurse Practitioner Acute Care | DX: G47.33 Obstructive sleep apnea (adult) (pediatric) (principal) ==

== ENCOUNTER → 2025-08-14 | Outpatient (CLI) | payer MEDICARE, SELFPAY | END | disposition home or self-care (01) | LOC: PSN 08:16 | PROVIDERS: PCP Student in an Organized Health Care Education/Training Program; Referring Provider Nurse Practitioner Acute Care; Visit Provider Nurse Practitioner Acute Care | DX: J44.9 Chronic obstructive pulmonary disease, unspecified (principal) | CPT/HCPCS: 94060; 94726 ==

== ENCOUNTER → 2025-08-18 | Outpatient (CLI) | payer MEDICARE, SELFPAY | END | disposition home or self-care (01) | LOC: SL 12:40 | PROVIDERS: PCP Student in an Organized Health Care Education/Training Program; Visit Provider Nurse Practitioner Acute Care | DX: G47.33 Obstructive sleep apnea (adult) (pediatric) (principal) | CPT/HCPCS: 98960; G0463 ==

== ENCOUNTER → 2025-09-01 | Outpatient (CLI) | payer MEDICARE, SELFPAY | END | disposition home or self-care (01) | LOC: SL 11:20 | PROVIDERS: PCP Student in an Organized Health Care Education/Training Program; Referring Provider Nurse Practitioner Acute Care; Visit Provider Nurse Practitioner Acute Care | DX: G47.33 Obstructive sleep apnea (adult) (pediatric) (principal) ==